=== PATIENT | female | born 1950 | race Caucasian/White ===

== ENCOUNTER 2020-03-06 15:48 | Inpatient (IN) | payer MEDICARE, SELFPAY ==
[2020-03-06] VITALS (10 sets, daily range): BP systolic 105–162; BP diastolic 57–80; PULSE 74–134; RESP 12–26; TEMP 36.3; O2SAT 95–100; BMI 23.5
--- NOTE | 2020-03-06 16:15 | PC.NURSE ---
Pt started yelling and trying to get out of the gurney. Pts spouse came out of room for help. Pt was easily directable and got back into bed with the help of this MANPOWER DEVELOPMENT SPECIALIST and her spouse. Lights are dimmed and pt was given warm blankets.
[2020-03-06] MEDS: LORazepam 2 MG/ML INJ ×2 (16:25→17:44)
[2020-03-06 16:28] LABS: Add Manual Diff / Slide Review NO; Basophils Absolute Auto 200 /uL (0-100); Eosinophils Absolute Auto 100 /uL (0-450); Eosinophils Percent Auto 0.4 % (2-4); Hematocrit 35.2 % (36-46); Hemoglobin 11.9 g/dL (12.0-16.0); Lymphocytes Absolute Auto 3200 /uL (1100-4500); Lymphocytes Percent Auto 16.2 % (25-40); Mean Corpuscular HGB Conc 33.7 % (30-36); Mean Corpuscular Volume 89.1 fL (80-100); Monocytes Absolute Auto 900 /uL (0-900); Monocytes Percent Auto 4.9 % (3-14); Neutrophils Absolute Auto 15100 /uL (1500-7000); Neutrophils Percent Auto 77.5 % (50-75); Platelet Count 526 X10^3/uL (150-400); Red Blood Cell Count 3.95 X10^6/uL (4.0-5.2); Red Cell Distribution Width 12.7 % (11.6-14.8); White Blood Cell Count 19.5 X10^3/uL (4.5-11.0)
[2020-03-06 16:35] LABS: Acetaminophen < 10 ug/mL (10-30); Alanine Aminotransferase 24 IU/L (<35); Albumin 4.7 g/dL (3.5-5.0); Albumin Globulin Ratio 1.1 (1.0-2.8); Alkaline Phosphatase 267 U/L (38-126); Aspartate Aminotransferase 36 IU/L (14-36); BUN Creatinine Ratio 13.9 (6-22); Bilirubin Total 0.7 mg/dL (0.2-1.3); Blood Urea Nitrogen 17 mg/dL (7-17); Calcium 10.6 mg/dL (8.4-10.2); Carbon Dioxide 21 mmol/L (22-32); Chloride 107 mmol/L (98-107); Estimated Glomerular Filt Rate 43.7 mL/min (>60); Ethanol (ETOH) < 10 mg/dL; Globulin 4.1 g/dL (1.7-4.1); Glucose 129 mg/dL (80-110); HEMOLYSIS 46 (0-50); Potassium 3.4 mmol/L (3.4-5.1); Salicylate < 1.0 mg/dL (<20); Sodium 140 mmol/L (137-145); Total Protein 8.8 g/dL (6.3-8.2)
--- NOTE | 2020-03-06 16:45 | ED.AMS ---
HPI - Altered Mental Status General Chief Complaint: Altered Mental Status Stated Complaint: Not herself Time Seen by Provider: 03/06/20 16:01 Source: family Mode of arrival: EMS Limitations: altered mental status History of Present Illness HPI narrative: Patient is a 69-year-old female long-term depression and hypothyroid, presenting today with psychiatric decline and mental health decline according to the . He says that for few weeks she has been decreasing and today she became quite unbearable hand agitated. She is unable to give me any history. She is on lithium he has been in charge of giving her lithium 600 mg at night. He states that she has been hospitalized 3 times for psychiatric breakdowns in the past. He mentions that she has had suicidal ideations but no attempts. Related Data Home Medications Medication Instructions Recorded Confirmed amlodipine 10 mg PO DAILY 03/06/20 03/06/20 duloxetine 60 mg PO DAILY 03/06/20 03/06/20 levothyroxine 75 mcg PO DAILY 03/06/20 03/06/20 lithium carbonate 600 mg PO BEDTIME 03/06/20 03/06/20 quetiapine 50 mg PO BEDTIME 03/06/20 03/06/20 Allergies Allergy/AdvReac Type Severity Reaction Status Date / Time Sulfa (Sulfonamide Allergy Unknown Verified 03/06/20 16:27 Antibiotics) Review of Systems Review of Systems ROS Unobtainable: Unobtainable due to mental condition Patient History Medical History (Updated 03/06/20 @ 18:55 by aSriah Gomes DO) Bipolar disorder (Acute) Hypertension (Acute) Hypothyroidism (acquired) (Acute) Exam Initial Vital Signs Initial Vital Signs: Vital Signs Pulse Rate 115 H 03/06/20 15:55 Respiratory Rate 22 03/06/20 15:55 Blood Pressure 145/72 H 03/06/20 15:55 Pulse Oximetry 98 03/06/20 15:55 GENERAL: Agitated HEENT: Head atraumatic,EOMI, pupils reactive, face symmetric, dry mucous membranes CARDIOVASCULAR: Tachycardic regular RESPIRATORY: Breath sounds equal bilaterally, no wheezes rales or rhonchi. ABDOMEN: Soft, nontender. Normoactive bowel sounds all 4 quadrants. No guarding or rebound. EXTREMITIES: Normal range of motion, no clubbing or edema. Neurovascularly intact NEUROLOGICAL: Not able to follow commands SKIN: Warm, dry, no laceration, no petechiae, no rashes or lesions. Course Orders Ordered: ED Orders 03/06/20 16:11 Acetaminophen Stat Complete Blood Count AUTO DIFF Stat Comprehensive Metabolic Panel Stat Ethanol (ETOH) Stat Lactate (Lactic Acid) Stat [place] Stat Magnesium Stat Procalcitonin Stat Salicylate Stat Thyroid Stimulating Hormone Stat 03/06/20 16:35 Blood Culture Stat 03/06/20 16:50 Urinalysis and Microscopic Stat Urine Culture Stat Urine Drug Screen, Rapid Stat 03/06/20 16:54 EKG-12 Lead Stat 03/06/20 17:52 Consult to INSTRUCTIONAL MANAGER - Collector Of Port Stat 03/06/20 18:14 XR chest 1V Stat COVID19 -ED/INPAT/OR/L&D Stat Discontinued Medications Sodium Chloride (Normal Saline 0.9%) 1,000 mls @ 1,000 mls/hr IV BOLUS ONE Stop: 03/06/20 17:41 Last Admin: 03/06/20 17:02 Dose: 1,000 mls/hr Documented by: ZZOUTIS Lorazepam (Ativan) 1 mg IV NOW ONE Stop: 03/06/20 17:13 Last Admin: 03/06/20 17:24 Dose: 1 mg Documented by: ZZOUTIS Lorazepam (Ativan) 2 mg IV NOW ONE Stop: 03/06/20 18:41 Vital Signs Vital signs: Vital Signs - 8 hr 03/06/20 15:55 03/06/20 15:56 03/06/20 16:00 Pulse Rate 115 H 114 H 114 H Respiratory Rate 22 24 24 Blood Pressure 145/72 H 145/72 H 162/72 H Pulse Oximetry 98 100 03/06/20 16:30 03/06/20 17:00 Pulse Rate 91 H 122 H Respiratory Rate 12 Blood Pressure 160/80 H Pulse Oximetry 98 100 MDM - Altered Mental Status Lab Data Attestation: I reviewed the patient's lab results. Result diagrams: 03/06/20 16:11 03/06/20 16:11 Labs: Lab Results 03/06/20 03/06/20 03/06/20 Range/Units 16:11 16:11 16:11 WBC 19.5 H (4.5-11.0) X10^3/uL RBC 3.95 L (4.0-5.2) X10^6/uL Hgb 11.9 L (12.0-16.0) g/dL Hct 35.2 L (36-46) % MCV 89.1 (80-100) fL MCH 30.0 (26-34) PG MCHC 33.7 (30-36) % RDW 12.7 (11.6-14.8) % Plt Count 526 H (150-400) X10^3/uL Neut % (Auto) 77.5 H (50-75) % Lymph % (Auto) 16.2 L (25-40) % [place] % (Auto) 4.9 (3-14) % Eos % (Auto) 0.4 L (2-4) % Baso % (Auto) 1.0 (0-2) % Neut # (Auto) 38992 H (7265-1583) /uL Lymph # (Auto) 3200 (0781-0521) /uL [place] # (Auto) 900 (0-900) /uL Eos # (Auto) 100 (0-450) /uL Baso # (Auto) 200 H (0-100) /uL Sodium 140 (137-145) mmol/L Potassium 3.4 (3.4-5.1) mmol/L Chloride 107 (98-107) mmol/L Carbon Dioxide 21 L (22-32) mmol/L BUN 17 (7-17) mg/dL Creatinine 1.22 H (0.52-1.04) mg/dL Estimated GFR 43.7 L (>60) mL/min BUN/Creatinine Ratio 13.9 (6-22) Glucose 129 H (80-110) mg/dL Lactate (0.7-2.1) mmol/L Calcium 10.6 H (8.4-10.2) mg/dL Magnesium (1.6-2.3) mg/dL Total Bilirubin 0.7 (0.2-1.3) mg/dL AST 36 (14-36) IU/L ALT 24 (<35) IU/L Alkaline Phosphatase 267 H (38-126) U/L Total Protein 8.8 H (6.3-8.2) g/dL Albumin 4.7 (3.5-5.0) g/dL Globulin 4.1 (1.7-4.1) g/dL Albumin/Globulin Ratio 1.1 (1.0-2.8) Procalcitonin (<0.5) ng/mL TSH (0.47-4.68) uIU/mL Urine Color Urine Appearance Urine pH (4.5-8.0) Ur Specific [place] (1.000-1.035) Urine Protein (Negative) Urine Glucose (UA) (Negative) g/dL Urine Ketones (NEGATIVE) Urine Occult Blood (Negative) Urine Nitrate (Negative) Urine Bilirubin (NEGATIVE) Urine Urobilinogen (0.2) E.U./dL Ur Leukocyte Esterase (NEGATIVE) Urine RBC (0-5/HPF) Urine WBC (0-5/HPF) Ur Squamous Epith Cells (0-5/HPF) Amorphous Sediment Urine Bacteria (None) Ur Culture Indicated? Salicylates < 1.0 (<20) mg/dL U Opiates 300ng/mL cut (Negative) Ur Oxycodone Screen (Negative) Urine Methadone Screen (Negative) Acetaminophen < 10 L (10-30) ug/mL Ur Barbiturates Screen (Negative) U Tricyclic Antidepress (Negative) Ur Phencyclidine Scrn (Negative) Ur Amphetamines Screen (Negative) U Methamphetamines Scrn (Negative) Ur MDMA Scrn (Ecstasy) (Negative) U Benzodiazepines Scrn (Negative) [place] 2.5 H* (0.6-1.2) mmol/L Urine Cocaine Screen (Negative) U Marijuana (THC) Screen (Negative) Ethyl Alcohol < 10 ( - 10) mg/dL 03/06/20 03/06/20 03/06/20 Range/Units 16:11 16:11 16:11 WBC (4.5-11.0) X10^3/uL RBC (4.0-5.2) X10^6/uL Hgb (12.0-16.0) g/dL Hct (36-46) % MCV (80-100) fL MCH (26-34) PG MCHC (30-36) % RDW (11.6-14.8) % Plt Count (150-400) X10^3/uL Neut % (Auto) (50-75) % Lymph % (Auto) (25-40) % [place] % (Auto) (3-14) % Eos % (Auto) (2-4) % Baso % (Auto) (0-2) % Neut # (Auto) (8391-7788) /uL Lymph # (Auto) (8858-1007) /uL [place] # (Auto) (0-900) /uL Eos # (Auto) (0-450) /uL Baso # (Auto) (0-100) /uL Sodium (137-145) mmol/L Potassium (3.4-5.1) mmol/L Chloride (98-107) mmol/L Carbon Dioxide (22-32) mmol/L BUN (7-17) mg/dL Creatinine (0.52-1.04) mg/dL Estimated GFR (>60) mL/min BUN/Creatinine Ratio (6-22) Glucose (80-110) mg/dL Lactate 2.7 H (0.7-2.1) mmol/L Calcium (8.4-10.2) mg/dL Magnesium (1.6-2.3) mg/dL Total Bilirubin (0.2-1.3) mg/dL AST (14-36) IU/L ALT (<35) IU/L Alkaline Phosphatase (38-126) U/L Total Protein (6.3-8.2) g/dL Albumin (3.5-5.0) g/dL Globulin (1.7-4.1) g/dL Albumin/Globulin Ratio (1.0-2.8) Procalcitonin 0.12 (<0.5) ng/mL TSH 0.522 (0.47-4.68) uIU/mL Urine Color Urine Appearance Urine pH (4.5-8.0) Ur Specific [place] (1.000-1.035) Urine Protein (Negative) Urine Glucose (UA) (Negative) g/dL Urine Ketones (NEGATIVE) Urine Occult Blood (Negative) Urine Nitrate (Negative) Urine Bilirubin (NEGATIVE) Urine Urobilinogen (0.2) E.U./dL Ur Leukocyte Esterase (NEGATIVE) Urine RBC (0-5/HPF) Urine WBC (0-5/HPF) Ur Squamous Epith Cells (0-5/HPF) Amorphous Sediment Urine Bacteria (None) Ur Culture Indicated? Salicylates (<20) mg/dL U Opiates 300ng/mL cut (Negative) Ur Oxycodone Screen (Negative) Urine Methadone Screen (Negative) Acetaminophen (10-30) ug/mL Ur Barbiturates Screen (Negative) U Tricyclic Antidepress (Negative) Ur Phencyclidine Scrn (Negative) Ur Amphetamines Screen (Negative) U Methamphetamines Scrn (Negative) Ur MDMA Scrn (Ecstasy) (Negative) U Benzodiazepines Scrn (Negative) [place] (0.6-1.2) mmol/L Urine Cocaine Screen (Negative) U Marijuana (THC) Screen (Negative) Ethyl Alcohol ( - 10) mg/dL 03/06/20 03/06/20 03/06/20 Range/Units 16:11 16:50 16:50 WBC (4.5-11.0) X10^3/uL RBC (4.0-5.2) X10^6/uL Hgb (12.0-16.0) g/dL Hct (36-46) % MCV (80-100) fL MCH (26-34) PG MCHC (30-36) % RDW (11.6-14.8) % Plt Count (150-400) X10^3/uL Neut % (Auto) (50-75) % Lymph % (Auto) (25-40) % [place] % (Auto) (3-14) % Eos % (Auto) (2-4) % Baso % (Auto) (0-2) % Neut # (Auto) (5557-6202) /uL Lymph # (Auto) (1627-6437) /uL [place] # (Auto) (0-900) /uL Eos # (Auto) (0-450) /uL Baso # (Auto) (0-100) /uL Sodium (137-145) mmol/L Potassium (3.4-5.1) mmol/L Chloride (98-107) mmol/L Carbon Dioxide (22-32) mmol/L BUN (7-17) mg/dL Creatinine (0.52-1.04) mg/dL Estimated GFR (>60) mL/min BUN/Creatinine Ratio (6-22) Glucose (80-110) mg/dL Lactate (0.7-2.1) mmol/L Calcium (8.4-10.2) mg/dL Magnesium 2.0 (1.6-2.3) mg/dL Total Bilirubin (0.2-1.3) mg/dL AST (14-36) IU/L ALT (<35) IU/L Alkaline Phosphatase (38-126) U/L Total Protein (6.3-8.2) g/dL Albumin (3.5-5.0) g/dL Globulin (1.7-4.1) g/dL Albumin/Globulin Ratio (1.0-2.8) Procalcitonin (<0.5) ng/mL TSH (0.47-4.68) uIU/mL Urine Color Yellow Urine Appearance Clear Urine pH 7.0 (4.5-8.0) Ur Specific [place] 1.010 (1.000-1.035) Urine Protein Negative (Negative) Urine Glucose (UA) Negative (Negative) g/dL Urine Ketones Trace H (NEGATIVE) Urine Occult Blood 1+ H (Negative) Urine Nitrate Negative (Negative) Urine Bilirubin Negative (NEGATIVE) Urine Urobilinogen 0.2 (0.2) E.U./dL Ur Leukocyte Esterase Negative (NEGATIVE) Urine RBC 1-5/hpf (0-5/HPF) Urine WBC 1-5/hpf (0-5/HPF) Ur Squamous Epith Cells 0-1 /hpf (0-5/HPF) Amorphous Sediment 2+ Urine Bacteria Occasional (0-1) (None) Ur Culture Indicated? Specimen cultured Salicylates (<20) mg/dL U Opiates 300ng/mL cut Negative (Negative) Ur Oxycodone Screen Positive H (Negative) Urine Methadone Screen Negative (Negative) Acetaminophen (10-30) ug/mL Ur Barbiturates Screen Negative (Negative) U Tricyclic Antidepress Negative (Negative) Ur Phencyclidine Scrn Negative (Negative) Ur Amphetamines Screen Negative (Negative) U Methamphetamines Scrn Negative (Negative) Ur MDMA Scrn (Ecstasy) Negative (Negative) U Benzodiazepines Scrn Negative (Negative) [place] (0.6-1.2) mmol/L Urine Cocaine Screen Negative (Negative) U Marijuana (THC) Screen Negative (Negative) Ethyl Alcohol ( - 10) mg/dL Imaging Data Chest x-ray: Radiologist's Impression: PROCEDURE: XR CHEST 1V INDICATIONS: Altered mental status TECHNIQUE: One view of the chest was acquired. COMPARISON: None. FINDINGS: Surgical changes and devices: None. Lungs and pleura: Lungs are clear. No pleural effusions or pneumothorax. Mediastinum: Mediastinal contours appear normal. Heart size is normal. Bones and chest wall: No suspicious bony lesions. Overlying soft tissues appear unremarkable. IMPRESSION: No acute cardiopulmonary process demonstrated radiographically. Dictated by: Iban Galo M.D. on 03/06/2020 at 18:32 Approved by: Iban Galo M.D. on 03/06/2020 at 18:34 ECG Data Attestation: I personally reviewed and interpreted this ECG as follows: Prior ECG tracings: not available for review Interpretation: Sinus rhythm rate 120 p.r. interval 185 QRS 105 QTC is 500 MDM Narrative Medical decision making narrative: [place] level comes back as critical at 2.5. The poison Control was promptly contacted. 2.5 is critical in chronic usage. Her gives her her nightly dose every day he has not given her any extra her last dose was last evening he is unsure exactly what the time is. Poison Control recommends monitoring the level every 4 hours until it peaks and then every 6 hours in till 8 decreases. The goal is 1.2. Signs and symptoms can include nausea vomiting tremors weakness hyper reflects a a. Dialysis is indicated if there EKG changes including prolonged QT coma or seizures. She is also noted to have significant leukocytosis of 19 no obvious source of infection. She does have mild elevation of procalcitonin. Chest x-ray and urine are negative. She is remaining quite agitated she is given multiple doses of Ativan. She finally has calmed down somewhat. Recommend avoiding Haldol and Benadryl as well both can cause prolonged QT. , in ED disease evaluate patient happily except. Discharge Plan Departure Patient Disposition: Admitted As Inpatient Clinical Impression: [place] toxicity Qualifiers: Encounter type: initial encounter Injury intent: undetermined intent Qualified Code(s): T56.894A - Toxic effect of other metals, undetermined, initial encounter Psychosis Qualifiers: Psychosis type: other Qualified Code(s): F28 - Other psychotic disorder not due to a substance or known physiological condition Discharge Date/Time: 03/06/20 18:16 Admit Date/Time: 03/06/20 18:15 Admit Provider: Griffin Collins
[2020-03-06 16:47] LABS: Lithium 2.5 mmol/L (0.6-1.2)
[2020-03-06 16:48] LABS: Lactate (Lactic Acid) 2.7 mmol/L (0.7-2.1)
--- NOTE | 2020-03-06 16:57 | PC.NURSE ---
patient had stool on bottom, and vagina. states he tried to clean her earlier, she had had diarrhea. pt is now clean and given warm blankets.
[2020-03-06] MEDS: SODIUM CHLORIDE 0.9% 1,000 ML 1000 ML IV (17:02)
[2020-03-06 17:04] LABS: Appearance Urine UA CLEAR; Bilirubin Urine UA NEGATIVE (NEGATIVE); Color Urine UA YELLOW; Glucose Urine UA NEGATIVE (Negative); Ketones Urine UA TRACE (NEGATIVE); Leukocyte Esterase Urine UA NEGATIVE (NEGATIVE); Nitrite Urine UA NEGATIVE (Negative); Occult Blood Urine UA 1+ (Negative); Protein Urine UA NEGATIVE (Negative); Urobilinogen Urine UA 0.2 E.U./dL (0.2)
[2020-03-06 17:05] LABS: Thyroid Stimulating Hormone 0.522 uIU/mL (0.47-4.68)
[2020-03-06 17:07] LABS: Procalcitonin 0.12 ng/mL (<0.5)
[2020-03-06 17:11] LABS: Amorphous Sediment Urine 2+; Bacteria Urine Occasional (0-1); Culture Indicated Urine Specimen Cultured; RBC Urine 1-5/HPF (0-5/HPF); Squamous Epithelial Cell Urine 0-1 /HPF (0-5/HPF); WBC Urine 1-5/HPF (0-5/HPF)
[2020-03-06 17:13] LABS: Ur Creatinine Normal (Normal); Ur Specific Gravity Normal (Normal)
[2020-03-06 17:14] LABS: UR Morphine/Opiate cutoff 300 Negative (Negative); Urine Amphetamines Negative (Negative); Urine Barbiturates Negative (Negative); Urine Benzodiazepines Negative (Negative); Urine Cocaine Negative (Negative); Urine MDMA Negative (Negative); Urine Methadone Negative (Negative); Urine Methamphetamines Negative (Negative); Urine Oxycodone Positive (Negative); Urine Phencyclidine Negative (Negative); Urine Tetrahydrocannabinol Negative (Negative); Urine Tricyclic Antidepressant Negative (Negative); Urine pH Normal (Normal)
[2020-03-06] MEDS: LORazepam 2 MG/ML INJ 1 MG IV ×2 (17:24→21:21)
[2020-03-06] MEDS: LORazepam 2 MG/ML INJ IV (17:54)
--- NOTE | 2020-03-06 18:14 | DI.RAD.S_ITS ---
PROCEDURE: XR CHEST 1V INDICATIONS: Altered mental status TECHNIQUE: One view of the chest was acquired. COMPARISON: None. FINDINGS: Surgical changes and devices: None. Lungs and pleura: Lungs are clear. No pleural effusions or pneumothorax. Mediastinum: Mediastinal contours appear normal. Heart size is normal. Bones and chest wall: No suspicious bony lesions. Overlying soft tissues appear unremarkable. IMPRESSION: No acute cardiopulmonary process demonstrated radiographically. Dictated by: Iban Galo M.D. on 03/06/2020 at 18:32 Approved by: Iban Galo M.D. on 03/06/2020 at 18:34
[2020-03-06 18:40] LABS: Reflexed Lactate in 2 Hours Y
--- NOTE | 2020-03-06 18:51 | PM.HP.1 ---
History of Present Illness History of Present Illness Date Patient Seen: 03/06/20 Time Patient Seen: 18:00 Chief complaint: Not herself Narrative: Patient is a 69-year-old female with history of bipolar depression, hypertension, hypothyroidism brought to the emergency department due to extreme agitation. provides useful history of recent events. He states she was doing well with normal behavior until about 2 weeks ago where she began having some confusion, trouble walking and a noticeable tremor. The symptoms persisted but yesterday she started to become extremely agitated up to point where got worried and called medics to bring her to the emergency department today. is not aware that she overdosed on anything or 2 pills other than directed. He states she had a couple episodes of vomiting about 2 weeks ago. Over the last day or two her oral intake has really dropped off as well. She has not had fever, chills, cough, abdominal complaints. has not noticed her falling or hitting her head with the loss of balance. On ED evaluation, patient was noted extremely agitated and uncontrollable. She was given several doses of lorazepam. Her lithium level came back at 2.5 in range of lithium toxicity. states her last dose of lithium was last night. Other abnormal labs include WBC 32663, hemoglobin 11.9, platelets 526, creatinine 1.22. Her serum sodium is normal at 140. She has mildly elevated serum calcium of 10.6. Her TSH is normal. Lactate mildly elevated at 2.7. Urine tox screen positive for oxycodone, negative for acetaminophen and salicylates. Patient is not on [place] inhibitors and does not take NSAIDs to 's knowledge. Patient History Medical History (Updated 03/06/20 @ 18:55 by Sariah Gomes DO) Bipolar disorder (Acute) Hypertension (Acute) Hypothyroidism (acquired) (Acute) Meds Home Medications and Allergies Home Medications Medication Instructions Recorded Confirmed Type amlodipine 10 mg PO DAILY 03/06/20 03/06/20 History duloxetine 60 mg PO DAILY 03/06/20 03/06/20 History levothyroxine 75 mcg PO DAILY 03/06/20 03/06/20 History lithium carbonate 600 mg PO BEDTIME 03/06/20 03/06/20 History quetiapine 50 mg PO BEDTIME 03/06/20 03/06/20 History Allergies Allergy/AdvReac Type Severity Reaction Status Date / Time Sulfa (Sulfonamide Allergy Unknown Verified 03/06/20 16:27 Antibiotics) Review of Systems Review of Systems ROS: Yes unobtainable due to mental condition Exam Vital Signs (past 8 hours): - 03/06/20 15:55 03/06/20 15:56 03/06/20 16:00 Pulse Rate 115 H 114 H 114 H Respiratory Rate 22 24 24 Blood Pressure 145/72 H 145/72 H 162/72 H Pulse Oximetry 98 100 03/06/20 16:30 03/06/20 17:00 Pulse Rate 91 H 122 H Respiratory Rate 12 Blood Pressure 160/80 H Pulse Oximetry 98 100 Oxygen Delivery Method Room Air Narrative Exam Narrative: General: Patient is quite sedated having received IV lorazepam HEENT: Pupils equal and reactive, normocephalic/nontraumatic Neck: Supple no lymphadenopathy Lungs: Clear to auscultation Heart: Normal S1 and S2, regular rhythm with mild tachycardia, no murmur Abdomen: Soft, no HSM Extremities: Warm, dry, no edema Neurological: At this time sedated and unresponsive, no myoclonic jerks or tremors Objective Labs Result Diagrams: 03/06/20 16:11 03/06/20 16:11 Labs: Laboratory Results - last 24 hr 03/06/20 03/06/20 03/06/20 16:11 16:11 16:11 WBC 19.5 H RBC 3.95 L Hgb 11.9 L Hct 35.2 L MCV 89.1 MCH 30.0 MCHC 33.7 RDW 12.7 Plt Count 526 H Neut % (Auto) 77.5 H Lymph % (Auto) 16.2 L [place] % (Auto) 4.9 Eos % (Auto) 0.4 L Baso % (Auto) 1.0 Neut # (Auto) 80352 H Lymph # (Auto) 3200 [place] # (Auto) 900 Eos # (Auto) 100 Baso # (Auto) 200 H Sodium 140 Potassium 3.4 Chloride 107 Carbon Dioxide 21 L BUN 17 Creatinine 1.22 H Estimated GFR 43.7 L BUN/Creatinine Ratio 13.9 Glucose 129 H Lactate Calcium 10.6 H Magnesium Total Bilirubin 0.7 AST 36 ALT 24 Alkaline Phosphatase 267 H Total Protein 8.8 H Albumin 4.7 Globulin 4.1 Albumin/Globulin Ratio 1.1 Procalcitonin TSH Urine Color Urine Appearance Urine pH Ur Specific [place] Urine Protein Urine Glucose (UA) Urine Ketones Urine Occult Blood Urine Nitrate Urine Bilirubin Urine Urobilinogen Ur Leukocyte Esterase Urine RBC Urine WBC Ur Squamous Epith Cells Amorphous Sediment Urine Bacteria Ur Culture Indicated? Salicylates < 1.0 U Opiates 300ng/mL cut Ur Oxycodone Screen Urine Methadone Screen Acetaminophen < 10 L Ur Barbiturates Screen U Tricyclic Antidepress Ur Phencyclidine Scrn Ur Amphetamines Screen U Methamphetamines Scrn Ur MDMA Scrn (Ecstasy) U Benzodiazepines Scrn [place] 2.5 H* Urine Cocaine Screen U Marijuana (THC) Screen Ethyl Alcohol < 10 03/06/20 03/06/20 03/06/20 16:11 16:11 16:11 WBC RBC Hgb Hct MCV MCH MCHC RDW Plt Count Neut % (Auto) Lymph % (Auto) [place] % (Auto) Eos % (Auto) Baso % (Auto) Neut # (Auto) Lymph # (Auto) [place] # (Auto) Eos # (Auto) Baso # (Auto) Sodium Potassium Chloride Carbon Dioxide BUN Creatinine Estimated GFR BUN/Creatinine Ratio Glucose Lactate 2.7 H Calcium Magnesium Total Bilirubin AST ALT Alkaline Phosphatase Total Protein Albumin Globulin Albumin/Globulin Ratio Procalcitonin 0.12 TSH 0.522 Urine Color Urine Appearance Urine pH Ur Specific [place] Urine Protein Urine Glucose (UA) Urine Ketones Urine Occult Blood Urine Nitrate Urine Bilirubin Urine Urobilinogen Ur Leukocyte Esterase Urine RBC Urine WBC Ur Squamous Epith Cells Amorphous Sediment Urine Bacteria Ur Culture Indicated? Salicylates U Opiates 300ng/mL cut Ur Oxycodone Screen Urine Methadone Screen Acetaminophen Ur Barbiturates Screen U Tricyclic Antidepress Ur Phencyclidine Scrn Ur Amphetamines Screen U Methamphetamines Scrn Ur MDMA Scrn (Ecstasy) U Benzodiazepines Scrn [place] Urine Cocaine Screen U Marijuana (THC) Screen Ethyl Alcohol 03/06/20 03/06/20 03/06/20 16:11 16:50 16:50 WBC RBC Hgb Hct MCV MCH MCHC RDW Plt Count Neut % (Auto) Lymph % (Auto) [place] % (Auto) Eos % (Auto) Baso % (Auto) Neut # (Auto) Lymph # (Auto) [place] # (Auto) Eos # (Auto) Baso # (Auto) Sodium Potassium Chloride Carbon Dioxide BUN Creatinine Estimated GFR BUN/Creatinine Ratio Glucose Lactate Calcium Magnesium 2.0 Total Bilirubin AST ALT Alkaline Phosphatase Total Protein Albumin Globulin Albumin/Globulin Ratio Procalcitonin TSH Urine Color Yellow Urine Appearance Clear Urine pH 7.0 Ur Specific [place] 1.010 Urine Protein Negative Urine Glucose (UA) Negative Urine Ketones Trace H Urine Occult Blood 1+ H Urine Nitrate Negative Urine Bilirubin Negative Urine Urobilinogen 0.2 Ur Leukocyte Esterase Negative Urine RBC 1-5/hpf Urine WBC 1-5/hpf Ur Squamous Epith Cells 0-1 /hpf Amorphous Sediment 2+ Urine Bacteria Occasional (0-1) Ur Culture Indicated? Specimen cultured Salicylates U Opiates 300ng/mL cut Negative Ur Oxycodone Screen Positive H Urine Methadone Screen Negative Acetaminophen Ur Barbiturates Screen Negative U Tricyclic Antidepress Negative Ur Phencyclidine Scrn Negative Ur Amphetamines Screen Negative U Methamphetamines Scrn Negative Ur MDMA Scrn (Ecstasy) Negative U Benzodiazepines Scrn Negative [place] Urine Cocaine Screen Negative U Marijuana (THC) Screen Negative Ethyl Alcohol Assessment & Plan Assessment & Plan narrative: This is a 69-year-old female presenting with acute confusion, agitation, tremors and trouble walking with a toxic lithium level. 1. Acute lithium toxicity, present on admission, active -lithium level 2.5 clearly in toxic range on background of chronic lithium intake -symptoms of confusion, agitation, tremors and difficulty walking all fit lithium toxicity -EKG: Sinus tachycardia, mild nonspecific ST changes, no QT prolongation -WBC 19 K, leukocytosis can be seen with lithium toxicity, patient without fever or other signs of infection, has normal urinalysis, chest x-ray pending, low procalcitonin 0.12 -serum calcium 10.6, hypercalcemia can be seen with lithium toxicity and also she may be dehydrated -provide hydration with NS 100 cc/hour -lithium level q.4-6 hours until declining back to normal range less than 1.2, plan of care was discussed with Poison Control by ED physician -monitor sodium levels for diabetes insipidus -repeat CBC, chemistries in a.m. -patient followed by [facility] for psychiatry 2. Anemia unknown chronicity -hemoglobin 11.9, MCV 89.1, no previous values available for comparison -also has leukocytosis and thrombocytosis -repeat CBC in a.m., consider outpatient oncology evaluation if laboratories are not improving by discharge -check iron profile and ferritin DVT prophylaxis: Lovenox Surrogate decision maker:
--- NOTE | 2020-03-06 19:19 | PC.NURSE ---
Addendum entered by Anisa Ryan R.N. 03/06/20 21:44: Posion control called and discussed plan of care and asked about s/s of [place] toxicity. Poison control instructed to continue with fluids and Ativan and to monitor for seizures. Lab called at 2143 to communicate a high [place] level of 2.2 (which is trending down from ER level of 2.5). pt is repositioning IND in bed often and is assisting with keeping pt calm and in bed. Addendum entered by Anisa Ryan R.N. 03/06/20 21:31: Tele applied and pt running Sinus tachy, although NSR when at rest. Richards catheter placed approximately 2044 with 16 Fr and 10ml in balloon. SCD's applied. pt does not respond to commands verbally but calm and will allow for interventions. pt did have some muscle rigidity during lab draw and Richards insertion but no aggression. Britton performing oral care with swabs and lip moisturizer. Pulse ox 100% and titrated pt off 1.5L NC to RA and sats are staying in high 90's. NS infusing at 100/hr to right wrist. pt favoring to lay in position on the right side causing many distal occlusions. Original Note: Evening shift. pt arrived from ED at 1850 and was transferred to bed from [facility] via sliding technique. pt was laying in position quiet and with eyes closed until transfer at which time she yelled out. Once in bed, pt was calm and continued to rest with her eyes closed. in room and helping to answer questions regarding pt history and events leading up to tonight. pt placed on droplet precautions while COVID test pending. pt arrived with NC and RN stated she was placed on 1.5 O2 for low 90's O2 after Ativan was administered. pt placed on 1.5L NC O2 in room. Bed alarm activated.
[2020-03-06 19:23] LABS: COVID19 -Nasal RAPID Negative (Negative)
[2020-03-06] MEDS: SODIUM CHLORIDE 0.9% 1,000 ML 100 ML IV (19:45)
[2020-03-06 21:27] LABS: Lactate 2HR (Lactic Acid Rflx) 1.7 mmol/L (0.7-2.1)
[2020-03-06 21:42] LABS: HEMOLYSIS < 15 (0-50); Iron 68 ug/dL (37-170)
[2020-03-06 21:43] LABS: Lithium 2.2 mmol/L (0.6-1.2)
[2020-03-06 21:52] LABS: Percent Iron Saturation 21 % (15-50); Total Iron Binding Capacity 322 ug/dL (265-497); Transferrin 236 mg/dL (206-381)
[2020-03-06 22:03] LABS: Ferritin 108 ng/mL (11-264)
--- NOTE | 2020-03-06 22:21 | PC.NURSE ---
Medication allergy. pt is allergic to sulfa antibiotics and had a moderate reaction to an old psychological medication a couple years ago, but the is unsure of the name. If he goes home he will look into it. states pt started having rashes all over her body.
[2020-03-07] VITALS (8 sets, daily range): BP systolic 101–153; BP diastolic 58–92; PULSE 65–120; RESP 16–22; TEMP 35.9–37.2; O2SAT 96–100
[2020-03-07] MEDS: SODIUM CHLORIDE 0.9% 1,000 ML 100 ML IV ×3 (02:35→21:14)
[2020-03-07] MEDS: LORazepam 2 MG/ML INJ 1 MG IV ×3 (03:14→12:17)
--- NOTE | 2020-03-07 04:13 | PM.EVENT ---
Event Note Date Patient Seen: 03/07/20 Time Patient Seen: 04:13 Event Note: Patient noted to be tachycardic with worsening tremors and elevated heart rate. Admitted for lithium toxicity, appears to be chronic which can cause more acute neurologic symptoms. Patient unable to answer questions, her legs are appearing to be tremoring and she is moaning. I have given her a one time dose of IV ativan 2 mg, increased her maintenance fluid to NS at 175 ml/hour. [place] levels are trending downward but still elevated. Last one done was 2.0. at 0026. 4 am level is pending.
--- NOTE | 2020-03-07 04:26 | PC.NURSE ---
Addendum entered by Mariann Lara R.N. 03/07/20 06:52: pt potassium is 2.8. REBECA Sharma notified and potassium replacement orders received Addendum entered by Mariann Lara R.N. 03/07/20 04:55: pt started getting restless at 0440, 2 mg of ativan given Original Note: Pt was clutching on the bed rails and was moaning. Maye and this web content writer tried non pharmacological treatment to deescalate pt such as rubbing back, talking to pt and telling pt step by step what we will do for assessment. Nonpharmacological approach was not successful and pt was given 1 mg of ativan. After 30 mins, pt was still restless, heart rate is still elevated. this web content writer called REBECA Sharma and hospitalist reassessed pt. As per RESIDENTIAL LIFE DIRECTOR, new orders are strict I and Os, Increase IV NS rate from 100 to 175 ml/hr. Administer ativan 2 mg now. As this web content writer was on her way to med room, pt stopped moaning and calmed down. Heart rrate sunil down to 83 bpm. Pt was asleep in a few minutes so this web content writer held off the ativan 2 mg. will continue to monitor, bed on lowest position, call light within reach, SKY Villavicencio is at the door way
[2020-03-07] MEDS: LORazepam 2 MG/ML INJ IV (04:46)
[2020-03-07 04:59] LABS: Add Manual Diff / Slide Review NO; Basophils Absolute Auto 100 /uL (0-100); Basophils Percent Auto 0.5 % (0-2); Eosinophils Absolute Auto 0 /uL (0-450); Eosinophils Percent Auto 0.1 % (2-4); Hematocrit 30.8 % (36-46); Hemoglobin 10.4 g/dL (12.0-16.0); Lymphocytes Absolute Auto 1100 /uL (1100-4500); Lymphocytes Percent Auto 7.2 % (25-40); Mean Corpuscular HGB Conc 33.8 % (30-36); Mean Corpuscular Volume 88.8 fL (80-100); Monocytes Absolute Auto 700 /uL (0-900); Neutrophils Absolute Auto 13000 /uL (1500-7000); Neutrophils Percent Auto 87.2 % (50-75); Platelet Count 407 X10^3/uL (150-400); Red Blood Cell Count 3.47 X10^6/uL (4.0-5.2); Red Cell Distribution Width 12.7 % (11.6-14.8); White Blood Cell Count 14.9 X10^3/uL (4.5-11.0)
[2020-03-07 05:10] LABS: Alanine Aminotransferase 27 IU/L (<35); Albumin 4.1 g/dL (3.5-5.0); Albumin Globulin Ratio 1.2 (1.0-2.8); Alkaline Phosphatase 225 U/L (38-126); Aspartate Aminotransferase 39 IU/L (14-36); BUN Creatinine Ratio 15.4 (6-22); Bilirubin Total 0.5 mg/dL (0.2-1.3); Blood Urea Nitrogen 14 mg/dL (7-17); Calcium 9.7 mg/dL (8.4-10.2); Carbon Dioxide 23 mmol/L (22-32); Chloride 112 mmol/L (98-107); Estimated Glomerular Filt Rate > 60.0 mL/min (>60); Globulin 3.4 g/dL (1.7-4.1); Glucose 124 mg/dL (80-110); HEMOLYSIS < 15 (0-50); Potassium 2.8 mmol/L (3.4-5.1); Sodium 143 mmol/L (137-145); Total Protein 7.5 g/dL (6.3-8.2)
[2020-03-07 05:15] LABS: Lithium 1.7 mmol/L (0.6-1.2)
[2020-03-07 05:25] LABS: Procalcitonin 0.11 ng/mL (<0.5)
[2020-03-07] MEDS: ENOXAPARIN 40 MG/0.4 ML SYRINGE SUBCUT (07:28)
[2020-03-07] MEDS: SODIUM CHLORIDE 0.9% FLUSH 10 ML IV ×2 (07:35→12:18)
[2020-03-07] MEDS: POTASSIUM CHLORIDE 30 MEQ in SODIUM CHLORIDE 0.9% 250 ML 88.333 ML IV ×2 (07:46→11:20)
--- NOTE | 2020-03-07 07:52 | PC.NURSE ---
Addendum entered by Luana Harper R.N. 03/07/20 12:58: Patient attempting to sit up in bed, patient unable to express needs, moans occasionally, 1mg Ativan IVP given, BG checked 116. Original Note: Patient lying on left side tremulous, moaning, unable to answer this RN's questions, drooling. 1mg IVP Ativan given, Dr Ramos aware, Rivka hung as ordered. Bed alarm on.
[2020-03-07 09:23] LABS: Lithium 1.6 mmol/L (0.6-1.2)
--- NOTE | 2020-03-07 11:29 | DIET.PN ---
Dietary Progress Note Assessment: 69y F admitted for lithium toxicity referred to nutrition for weight management. Pt information provided by supportive spouse as pt is sleeping. Per spouse, pt sleeps all day and is up all night so he is unsure what she actually eats. Pt is at usual body weight today (56.3kg), however spouse mentioned 1mo ago she was weighed at doctors office and was 67kg which was unusual and very high body weight for her. He feels it may be related to eating sweets, or was an error. does not have any weight records for this patient. She has chronic diarrhea for 2y and has frequent accidents. Pt likes yogurt, jello, burgers, fish. Has dentures so some issues c chewing (she likes salads but can't really eat them). HT: 157.4cm WT: 56.3kg UBW: 56.3kg BMI: 22.7 Labs: renal labs normalized overnight MNA: 11 Dillon: 15 @ risk for skin breakdown Diet Order: NPO EER: 1,400 kcal (25kcal/kg), 56g PRO (1g/kg) Monitoring/Evaluations: RD concerned at pts nocturnal habits as hospital kitchen closed 7pm-7am when pt is generally awake.
--- NOTE | 2020-03-07 13:40 | PM.PN.1 ---
Subjective Subjective Date Patient Seen: 03/07/20 Interval history: Camilla Kim is a 69-year-old female with a past medical history significant for bipolar depression, hypertension, and hypothyroidism who presented to the ED via EMS due to confusion, severe agitation, tremors and trouble walking with a toxic lithium level. The patient is sleeping in bed comfortably. The states that ?she is finally sleeping and she needs it? as she has not slept well the last several nights. She continues to have significant restlessness, tremulousness, confusion with moaning and crying out when she is awake. She is unable to answer questions or participate in interview or review of systems. She has received a total of 12 mg of Ativan since admission over the last 24 hours. Plan to ONLY give Ativan if absolutely necessary for agitation and tremulousness. Continue IV fluid hydration and monitoring of blood glucose levels. She is voiding via Richards catheter. Exam Vital Signs (past 8 hours): - 03/07/20 07:31 03/07/20 08:12 03/07/20 08:34 Temperature 99.0 F Pulse Rate 65 80 80 Respiratory Rate 20 16 16 Blood Pressure 113/62 Pulse Oximetry 98 96 Oxygen Delivery Method Room Air Oxygen Flow Rate 0 Narrative Exam Narrative: General: Middle-aged female lying in bed sleeping and appears comfortable. When the patient is awakened she is restless, tremulous and agitated with moaning and crying out. HEENT: Normocephalic, atraumatic. External ears without defect. Pupils equal, round, and reactive to light. Anicteric sclerae, moist conjunctivae, and no lid lag. Neck: Supple with full range of motion. No jugular venous distension. No lymphadenopathy or thyromegaly. Cardiovascular: Regular rate and rhythm without murmurs, rubs, or gallops appreciated Pulmonary: Clear to auscultation bilaterally without crackles, wheezes, or rhonchi. Normal respiratory effort with no use of accessory muscles. Abdomen: Soft, bowel sounds present, nontender, nondistended. No hepatosplenomegaly or masses appreciated. Extremities: No clubbing, cyanosis, or edema. Skin: Normal temperature, turgor, and texture; no ulcers, or subcutaneous nodules appreciated. Keratotic rash around bilateral lower extremities. Objective Labs Result Diagrams: 03/07/20 04:35 03/07/20 04:35 Labs: Laboratory Results - last 24 hr 03/06/20 03/06/20 03/06/20 16:11 16:11 16:11 WBC 19.5 H RBC 3.95 L Hgb 11.9 L Hct 35.2 L MCV 89.1 MCH 30.0 MCHC 33.7 RDW 12.7 Plt Count 526 H Neut % (Auto) 77.5 H Lymph % (Auto) 16.2 L Barren % (Auto) 4.9 Eos % (Auto) 0.4 L Baso % (Auto) 1.0 Neut # (Auto) 00374 H Lymph # (Auto) 3200 Barren # (Auto) 900 Eos # (Auto) 100 Baso # (Auto) 200 H Sodium 140 Potassium 3.4 Chloride 107 Carbon Dioxide 21 L BUN 17 Creatinine 1.22 H Estimated GFR 43.7 L BUN/Creatinine Ratio 13.9 Glucose 129 H Lactate Calcium 10.6 H Magnesium Iron TIBC % Saturation Transferrin Ferritin Total Bilirubin 0.7 AST 36 ALT 24 Alkaline Phosphatase 267 H Total Protein 8.8 H Albumin 4.7 Globulin 4.1 Albumin/Globulin Ratio 1.1 Procalcitonin TSH Urine Color Urine Appearance Urine pH Ur Specific Campbell Urine Protein Urine Glucose (UA) Urine Ketones Urine Occult Blood Urine Nitrate Urine Bilirubin Urine Urobilinogen Ur Leukocyte Esterase Urine RBC Urine WBC Ur Squamous Epith Cells Amorphous Sediment Urine Bacteria Ur Culture Indicated? Salicylates < 1.0 U Opiates 300ng/mL cut Ur Oxycodone Screen Urine Methadone Screen Acetaminophen < 10 L Ur Barbiturates Screen U Tricyclic Antidepress Ur Phencyclidine Scrn Ur Amphetamines Screen U Methamphetamines Scrn Ur MDMA Scrn (Ecstasy) U Benzodiazepines Scrn [place] 2.5 H* Urine Cocaine Screen U Marijuana (THC) Screen Ethyl Alcohol < 10 COVID-19 PCR 03/06/20 03/06/20 03/06/20 16:11 16:11 16:11 WBC RBC Hgb Hct MCV MCH MCHC RDW Plt Count Neut % (Auto) Lymph % (Auto) Barren % (Auto) Eos % (Auto) Baso % (Auto) Neut # (Auto) Lymph # (Auto) Barren # (Auto) Eos # (Auto) Baso # (Auto) Sodium Potassium Chloride Carbon Dioxide BUN Creatinine Estimated GFR BUN/Creatinine Ratio Glucose Lactate 2.7 H Calcium Magnesium Iron TIBC % Saturation Transferrin Ferritin Total Bilirubin AST ALT Alkaline Phosphatase Total Protein Albumin Globulin Albumin/Globulin Ratio Procalcitonin 0.12 TSH 0.522 Urine Color Urine Appearance Urine pH Ur Specific [place] Urine Protein Urine Glucose (UA) Urine Ketones Urine Occult Blood Urine Nitrate Urine Bilirubin Urine Urobilinogen Ur Leukocyte Esterase Urine RBC Urine WBC Ur Squamous Epith Cells Amorphous Sediment Urine Bacteria Ur Culture Indicated? Salicylates U Opiates 300ng/mL cut Ur Oxycodone Screen Urine Methadone Screen Acetaminophen Ur Barbiturates Screen U Tricyclic Antidepress Ur Phencyclidine Scrn Ur Amphetamines Screen U Methamphetamines Scrn Ur MDMA Scrn (Ecstasy) U Benzodiazepines Scrn [place] Urine Cocaine Screen U Marijuana (THC) Screen Ethyl Alcohol COVID-19 PCR 03/06/20 03/06/20 03/06/20 16:11 16:50 16:50 WBC RBC Hgb Hct MCV MCH MCHC RDW Plt Count Neut % (Auto) Lymph % (Auto) Barren % (Auto) Eos % (Auto) Baso % (Auto) Neut # (Auto) Lymph # (Auto) Barren # (Auto) Eos # (Auto) Baso # (Auto) Sodium Potassium Chloride Carbon Dioxide BUN Creatinine Estimated GFR BUN/Creatinine Ratio Glucose Lactate Calcium Magnesium 2.0 Iron TIBC % Saturation Transferrin Ferritin Total Bilirubin AST ALT Alkaline Phosphatase Total Protein Albumin Globulin Albumin/Globulin Ratio Procalcitonin TSH Urine Color Yellow Urine Appearance Clear Urine pH 7.0 Ur Specific [place] 1.010 Urine Protein Negative Urine Glucose (UA) Negative Urine Ketones Trace H Urine Occult Blood 1+ H Urine Nitrate Negative Urine Bilirubin Negative Urine Urobilinogen 0.2 Ur Leukocyte Esterase Negative Urine RBC 1-5/hpf Urine WBC 1-5/hpf Ur Squamous Epith Cells 0-1 /hpf Amorphous Sediment 2+ Urine Bacteria Occasional (0-1) Ur Culture Indicated? Specimen cultured Salicylates U Opiates 300ng/mL cut Negative Ur Oxycodone Screen Positive H Urine Methadone Screen Negative Acetaminophen Ur Barbiturates Screen Negative U Tricyclic Antidepress Negative Ur Phencyclidine Scrn Negative Ur Amphetamines Screen Negative U Methamphetamines Scrn Negative Ur MDMA Scrn (Ecstasy) Negative U Benzodiazepines Scrn Negative [place] Urine Cocaine Screen Negative U Marijuana (THC) Screen Negative Ethyl Alcohol COVID-19 PCR 03/06/20 03/06/20 03/06/20 18:49 20:55 20:55 WBC RBC Hgb Hct MCV MCH MCHC RDW Plt Count Neut % (Auto) Lymph % (Auto) Barren % (Auto) Eos % (Auto) Baso % (Auto) Neut # (Auto) Lymph # (Auto) Barren # (Auto) Eos # (Auto) Baso # (Auto) Sodium Potassium Chloride Carbon Dioxide BUN Creatinine Estimated GFR BUN/Creatinine Ratio Glucose Lactate 1.7 Calcium Magnesium Iron TIBC % Saturation Transferrin Ferritin Total Bilirubin AST ALT Alkaline Phosphatase Total Protein Albumin Globulin Albumin/Globulin Ratio Procalcitonin TSH Urine Color Urine Appearance Urine pH Ur Specific [place] Urine Protein Urine Glucose (UA) Urine Ketones Urine Occult Blood Urine Nitrate Urine Bilirubin Urine Urobilinogen Ur Leukocyte Esterase Urine RBC Urine WBC Ur Squamous Epith Cells Amorphous Sediment Urine Bacteria Ur Culture Indicated? Salicylates U Opiates 300ng/mL cut Ur Oxycodone Screen Urine Methadone Screen Acetaminophen Ur Barbiturates Screen U Tricyclic Antidepress Ur Phencyclidine Scrn Ur Amphetamines Screen U Methamphetamines Scrn Ur MDMA Scrn (Ecstasy) U Benzodiazepines Scrn [place] 2.2 H* Urine Cocaine Screen U Marijuana (THC) Screen Ethyl Alcohol COVID-19 PCR Negative 03/06/20 03/06/20 03/07/20 20:55 20:55 00:26 WBC RBC Hgb Hct MCV MCH MCHC RDW Plt Count Neut % (Auto) Lymph % (Auto) Barren % (Auto) Eos % (Auto) Baso % (Auto) Neut # (Auto) Lymph # (Auto) Barren # (Auto) Eos # (Auto) Baso # (Auto) Sodium Potassium Chloride Carbon Dioxide BUN Creatinine Estimated GFR BUN/Creatinine Ratio Glucose Lactate Calcium Magnesium Iron 68 TIBC 322 % Saturation 21 Transferrin 236 Ferritin 108 Total Bilirubin AST ALT Alkaline Phosphatase Total Protein Albumin Globulin Albumin/Globulin Ratio Procalcitonin TSH Urine Color Urine Appearance Urine pH Ur Specific [place] Urine Protein Urine Glucose (UA) Urine Ketones Urine Occult Blood Urine Nitrate Urine Bilirubin Urine Urobilinogen Ur Leukocyte Esterase Urine RBC Urine WBC Ur Squamous Epith Cells Amorphous Sediment Urine Bacteria Ur Culture Indicated? Salicylates U Opiates 300ng/mL cut Ur Oxycodone Screen Urine Methadone Screen Acetaminophen Ur Barbiturates Screen U Tricyclic Antidepress Ur Phencyclidine Scrn Ur Amphetamines Screen U Methamphetamines Scrn Ur MDMA Scrn (Ecstasy) U Benzodiazepines Scrn [place] 2.0 H* Urine Cocaine Screen U Marijuana (THC) Screen Ethyl Alcohol COVID-19 PCR 03/07/20 03/07/20 03/07/20 04:35 04:35 04:35 WBC 14.9 H RBC 3.47 L Hgb 10.4 L Hct 30.8 L MCV 88.8 MCH 30.0 MCHC 33.8 RDW 12.7 Plt Count 407 H Neut % (Auto) 87.2 H Lymph % (Auto) 7.2 L Barren % (Auto) 5.0 Eos % (Auto) 0.1 L Baso % (Auto) 0.5 Neut # (Auto) 50458 H Lymph # (Auto) 1100 Barren # (Auto) 700 Eos # (Auto) 0 Baso # (Auto) 100 Sodium 143 Potassium 2.8 L Chloride 112 H Carbon Dioxide 23 BUN 14 Creatinine 0.91 Estimated GFR > 60.0 BUN/Creatinine Ratio 15.4 Glucose 124 H Lactate Calcium 9.7 Magnesium Iron TIBC % Saturation Transferrin Ferritin Total Bilirubin 0.5 AST 39 H ALT 27 Alkaline Phosphatase 225 H Total Protein 7.5 Albumin 4.1 Globulin 3.4 Albumin/Globulin Ratio 1.2 Procalcitonin 0.11 TSH Urine Color Urine Appearance Urine pH Ur Specific [place] Urine Protein Urine Glucose (UA) Urine Ketones Urine Occult Blood Urine Nitrate Urine Bilirubin Urine Urobilinogen Ur Leukocyte Esterase Urine RBC Urine WBC Ur Squamous Epith Cells Amorphous Sediment Urine Bacteria Ur Culture Indicated? Salicylates U Opiates 300ng/mL cut Ur Oxycodone Screen Urine Methadone Screen Acetaminophen Ur Barbiturates Screen U Tricyclic Antidepress Ur Phencyclidine Scrn Ur Amphetamines Screen U Methamphetamines Scrn Ur MDMA Scrn (Ecstasy) U Benzodiazepines Scrn [place] Urine Cocaine Screen U Marijuana (THC) Screen Ethyl Alcohol COVID-19 PCR 03/07/20 03/07/20 04:35 08:50 WBC RBC Hgb Hct MCV MCH MCHC RDW Plt Count Neut % (Auto) Lymph % (Auto) Barren % (Auto) Eos % (Auto) Baso % (Auto) Neut # (Auto) Lymph # (Auto) Barren # (Auto) Eos # (Auto) Baso # (Auto) Sodium Potassium Chloride Carbon Dioxide BUN Creatinine Estimated GFR BUN/Creatinine Ratio Glucose Lactate Calcium Magnesium Iron TIBC % Saturation Transferrin Ferritin Total Bilirubin AST ALT Alkaline Phosphatase Total Protein Albumin Globulin Albumin/Globulin Ratio Procalcitonin TSH Urine Color Urine Appearance Urine pH Ur Specific [place] Urine Protein Urine Glucose (UA) Urine Ketones Urine Occult Blood Urine Nitrate Urine Bilirubin Urine Urobilinogen Ur Leukocyte Esterase Urine RBC Urine WBC Ur Squamous Epith Cells Amorphous Sediment Urine Bacteria Ur Culture Indicated? Salicylates U Opiates 300ng/mL cut Ur Oxycodone Screen Urine Methadone Screen Acetaminophen Ur Barbiturates Screen U Tricyclic Antidepress Ur Phencyclidine Scrn Ur Amphetamines Screen U Methamphetamines Scrn Ur MDMA Scrn (Ecstasy) U Benzodiazepines Scrn [place] 1.7 H* 1.6 H* Urine Cocaine Screen U Marijuana (THC) Screen Ethyl Alcohol COVID-19 PCR Assessment & Plan Assessment & Plan narrative: Camilla Kim is a 69-year-old female with a past medical history significant for bipolar depression, hypertension, and hypothyroidism who presented to the ED via EMS due to confusion, severe agitation, tremors and trouble walking with a toxic lithium level. 1. Acute lithium toxicity with dehydration, present on admission. Active. -Patient is treated for bipolar depression with duloxetine, lithium, and quetiapine followed by REBECA Valera for psychiatry. -Initial lithium level 2.5 which is in significantly high toxic range in background of chronic lithium use. -Symptoms of confusion, agitation, tremors and difficulty walking all fit lithium toxicity. -EKG demonstrated sinus tachycardia, mild nonspecific ST changes, no QT prolongation. Repeat EKG today did not demonstrate any QTc prolongation at 416 ms. -Initial WBC 19 and trending down now 14.9 presumably from lithium toxicity. Patient is afebrile and has no other signs of infection including: Negative urinalysis, negative chest x-ray, negative procalcitonin 0.11. -Initial calcium level mildly elevated at 10.6 which can be seen with lithium toxicity, as well as, dehydration. Calcium level normalized with IV fluid hydration now 9.7. -Continue normal saline at 100 mL/hr. Patient is NPO as she is not awake or alert enough to take in oral intake. Continue to monitor blood glucose every 6 hours while NPO. Hemoglobin A1c normal at 5.2%. -Continue to monitor lithium level every 6 hours now that this has peaked and trending downward until back into a normal range. ED physician contact poison control and will continue to contact poison control as needed. -Continue to monitor sodium levels for diabetes insipidus, renal function and electrolytes closely. -Consulted PICK PULLING MACHINE OPERATOR as it is unclear if this is represents intentional or unintentional overdose. -Consider CT brain without contrast and/or MRI brain if patient's mentation does not improve considerably within the next 1-2 days with resolution of lithium toxicity. -Low threshold to consult Psychiatry. 2. Hypokalemia, not present on admission. Active. -Initial potassium level 3.4. Potassium level trended down to 2.8 with aggressive IV fluid hydration. Received potassium chloride 60 mEq IV x1. Continue to monitor potassium level and replete as necessary. Initial magnesium level normal at 2.0 and trending down slightly now 1.8 with IV fluid hydration. Continue monitor magnesium level and replete if necessary. 3. Normocytic anemia, unknown chronicity, present on admission. Stable. -Initial hemoglobin 11.9 and MCV 89.1 without previous values for comparison. Hemoglobin trending down now 10.4 likely due to dilution from aggressive IV fluid hydration. Patient also has leukocytosis with thrombocytosis which are consistent with dehydration and lithium toxicity and improving with treatment with IV fluid hydration. -Iron profile within normal limits. -Consider outpatient Hematology/Oncology evaluation if laboratories are not improving by discharge. Code status: Full code, surrogate decision maker is spouse DVT prophylaxis: Enoxaparin, SCDs Disposition: Patient remains hospitalized for treatment of lithium toxicity.
[2020-03-07 14:09] LABS: Lithium 1.5 mmol/L (0.6-1.2)
[2020-03-07 17:00] LABS: Magnesium 1.8 mg/dL (1.6-2.3)
[2020-03-07] MEDS: LEVOTHYROXINE INJ 100 MCG/5 ML VIAL 37.5 MCG IV (17:47)
[2020-03-07 19:04] LABS: Hemoglobin A1C% w Est Avg Glu 5.2 % (4.0-6.0)
[2020-03-07 20:19] LABS: Lithium 1.3 mmol/L (0.6-1.2)
[2020-03-07 20:26] LABS: Alanine Aminotransferase 36 IU/L (<35); Albumin 3.8 g/dL (3.5-5.0); Albumin Globulin Ratio 1.2 (1.0-2.8); Alkaline Phosphatase 207 U/L (38-126); Aspartate Aminotransferase 46 IU/L (14-36); BUN Creatinine Ratio 11.2 (6-22); Bilirubin Total 0.5 mg/dL (0.2-1.3); Blood Urea Nitrogen 10 mg/dL (7-17); Calcium 9.8 mg/dL (8.4-10.2); Carbon Dioxide 20 mmol/L (22-32); Chloride 120 mmol/L (98-107); Estimated Glomerular Filt Rate > 60.0 mL/min (>60); Globulin 3.1 g/dL (1.7-4.1); Glucose 124 mg/dL (80-110); HEMOLYSIS 24 (0-50); Magnesium 1.9 mg/dL (1.6-2.3); Potassium 4.5 mmol/L (3.4-5.1); Sodium 148 mmol/L (137-145); Total Protein 6.9 g/dL (6.3-8.2)
--- NOTE | 2020-03-07 22:00 | PC.NURSE ---
Pt drowsey, difficult to awaken. CBG @1800 121 IVF infusing as per MD orders. Tele showing NSR per ICU staff. [place] level this evening 1.3 per lab Repositioned to right side Richards cath patent 750cc clear yellow urine. Call light w/in reach, in room. Continue w/plan of care.
[2020-03-07] MEDS: SODIUM CHLORIDE 0.45% 1,000 ML 100 ML IV (22:28)
[2020-03-08] VITALS (11 sets, daily range): BP systolic 106–164; BP diastolic 70–94; PULSE 78–111; RESP 14–24; TEMP 36.9–37.4; O2SAT 96–100
[2020-03-08 01:27] LABS: Lithium 1.1 mmol/L (0.6-1.2)
[2020-03-08] MEDS: LORazepam 2 MG/ML INJ 0.5 MG IV (05:29)
[2020-03-08 06:13] LABS: Add Manual Diff / Slide Review NO; Basophils Absolute Auto 100 /uL (0-100); Basophils Percent Auto 0.8 % (0-2); Eosinophils Absolute Auto 0 /uL (0-450); Hematocrit 32.4 % (36-46); Hemoglobin 10.3 g/dL (12.0-16.0); Lymphocytes Absolute Auto 2100 /uL (1100-4500); Lymphocytes Percent Auto 12.4 % (25-40); Mean Corpuscular HGB Conc 31.9 % (30-36); Mean Corpuscular Hemoglobin 29.5 PG (26-34); Mean Corpuscular Volume 92.7 fL (80-100); Monocytes Absolute Auto 700 /uL (0-900); Monocytes Percent Auto 4.1 % (3-14); Neutrophils Absolute Auto 13600 /uL (1500-7000); Neutrophils Percent Auto 82.7 % (50-75); Platelet Count 409 X10^3/uL (150-400); Red Cell Distribution Width 13.5 % (11.6-14.8); White Blood Cell Count 16.5 X10^3/uL (4.5-11.0)
[2020-03-08 06:25] LABS: Alanine Aminotransferase 48 IU/L (<35); Albumin 4.3 g/dL (3.5-5.0); Albumin Globulin Ratio 1.1 (1.0-2.8); Alkaline Phosphatase 245 U/L (38-126); Aspartate Aminotransferase 53 IU/L (14-36); BUN Creatinine Ratio 12.8 (6-22); Bilirubin Total 0.6 mg/dL (0.2-1.3); Blood Urea Nitrogen 12 mg/dL (7-17); Calcium 10.3 mg/dL (8.4-10.2); Carbon Dioxide 20 mmol/L (22-32); Chloride 115 mmol/L (98-107); Globulin 3.9 g/dL (1.7-4.1); Glucose 138 mg/dL (80-110); HEMOLYSIS < 15 (0-50); Magnesium 1.7 mg/dL (1.6-2.3); Potassium 3.6 mmol/L (3.4-5.1); Sodium 146 mmol/L (137-145); Total Protein 8.2 g/dL (6.3-8.2)
[2020-03-08 06:40] LABS: Procalcitonin 0.12 ng/mL (<0.5)
--- NOTE | 2020-03-08 08:06 | DI.CT.S_ITS ---
PROCEDURE: CT CHEST ABD PEL W CON INDICATIONS: Confusion, leukocytosis, pain TECHNIQUE: After the administration of intravenous contrast, 5 mm thick sections acquired from the lung apices to the symphysis. 5 mm coronal and sagittal reformats were performed, with additional 7 mm MIP reformats through the lungs. For radiation dose reduction, the following was used: automated exposure control, adjustment of mA and/or kV according to patient size. COMPARISON: None. FINDINGS: Image quality: Somewhat compromised by patient inability to fully cooperate with the examination.. The patient was scanned in decubitus positioning for comfort. CHEST: Lungs and pleura: No acute airspace opacities. No pleural effusions or pneumothorax. Central and peripheral airways appear patent and normal in caliber. Mediastinum: Heart size is normal. No pericardial effusion. No mediastinal or hilar adenopathy by size criteria. Thoracic aorta and central pulmonary arteries are normal in size. Esophagus is normal in caliber. No hiatal hernia. Chest wall: No axillary or supraclavicular adenopathy by size criteria. Thyroid gland appears normal . ABDOMEN: Solid organs: Liver is normal in size and enhancement. The liver appears fatty infiltrated and contains several sub cm hypodensities too small to accurately characterize by CT scanning but likely representing small hemangiomas or cysts. Gallbladder has been resected. Biliary system is non dilated. Pancreas enhances normally. Spleen is normal in size and enhancement. No adrenal nodules. Kidneys demonstrate normal size and enhancement, without hydronephrosis. Peritoneum and bowel: Bowel loops demonstrate normal wall thickness and caliber. No free fluid or air. Nodes and vessels: No retroperitoneal or mesenteric adenopathy by size criteria. Aorta and inferior vena cava are normal in size. Miscellaneous: No ventral hernias. PELVIS: Genitourinary: Bladder wall thickness is normal considering presence of Richards catheter within the bladder lumen. Miscellaneous: No inguinal hernias or adenopathy. Bones: No suspicious bony lesions. No vertebral body compression fractures. IMPRESSION: Patient scanned in decubitus position to assist in obtaining optimal visualization for this patient who is unable to fully cooperate with the examination. No pneumonia or neoplasm found, within the peritoneal space no inflammatory process is seen. Note is made of fatty infiltration throughout the liver. No acute disease is found. Richards catheter fully empties the bladder lumen. Dictated by: Marc Coleman M.D. on 03/08/2020 at 9:20 Approved by: Marc Coleman M.D. on 03/08/2020 at 9:26
[2020-03-08] MEDS: SODIUM CHLORIDE 0.45% 1,000 ML 100 ML IV (08:08)
[2020-03-08] MEDS: LORazepam 2 MG/ML INJ 1 MG IV (08:23)
--- NOTE | 2020-03-08 08:57 | DI.CT.S_ITS ---
PROCEDURE: CT HEAD/BRAIN WO CON INDICATIONS: Confusion, lithium toxicity TECHNIQUE: Noncontrast 4.5 mm thick angled axial sections acquired from the foramen magnum to the vertex, with coronal and sagittal reformats. For radiation dose reduction, the following was used: automated exposure control, adjustment of mA and/or kV according to patient size. COMPARISON: [facility], CT, CT CHEST ABD PEL W CON, 03/08/2020, 8:22. [facility], CT, CT BRAIN WO CON, 12/14/2015, 11:43. FINDINGS: Image quality: Diagnostic, with note made of motion artifact. CSF spaces: Basal cisterns are patent. No extra-axial fluid collections. The ventricles are symmetric in size and shape. Brain: No intracranial bleeds or masses. There is cerebral volume loss for age, with resultant ventricular and sulcal prominence. There are periventricular and deep white matter chronic small vessel ischemic changes. There is intracranial internal carotid artery atherosclerosis. Skull and face: Calvarium and visualized facial bones appear intact, without suspicious lesions. Sinuses: Visualized sinuses and mastoids are clear. IMPRESSION: Mildly limited study, without an acute abnormality identified for age. Dictated by: Zac Ch M.D. on 03/08/2020 at 8:27 Approved by: Zac Ch M.D. on 03/08/2020 at 8:28
--- NOTE | 2020-03-08 09:07 | PC.NURSE ---
Addendum entered by Luana Harper R.N. 03/08/20 13:38: Patient yelling out occasionally, unable to express what she needs,sat patient up to 90 degrees and offered water which patient took without difficulty. Gave PO seroquel with applesauce. alarm on. Addendum entered by Luana Harper R.N. 03/08/20 09:51: Patient attempting to get out of bed, two assist to BSC, gait unsteady. Patient had large formed BM, patient bathed and assisted back to bed. Following some commands. Patient relaxed and lying quietly in bed, alarm on. Original Note: Patient, yelling out and rolling around in bed, consoled with touch and voice, patient unable to follow commands. Says yes to and yeah, calls out for Britton occasionally. Patient unable to express needs. Leak in to assess patient. 1mg IVP ativan given, patient taken down for CT studies.
[2020-03-08] MEDS: ENOXAPARIN 40 MG/0.4 ML SYRINGE SUBCUT (09:24)
[2020-03-08] MEDS: SODIUM CHLORIDE 0.9% FLUSH 10 ML IV (09:24)
[2020-03-08 10:29] LABS: Bacteria Urine None Seen; WBC Urine None Seen (0-5/HPF)
[2020-03-08 10:36] LABS: Appearance Urine UA CLEAR; Bilirubin Urine UA NEGATIVE (NEGATIVE); Color Urine UA YELLOW; Glucose Urine UA NEGATIVE (Negative); Ketones Urine UA 1+ (NEGATIVE); Leukocyte Esterase Urine UA NEGATIVE (NEGATIVE); Nitrite Urine UA NEGATIVE (Negative); Occult Blood Urine UA TRACE-LYSED (Negative); Protein Urine UA NEGATIVE (Negative); Specific Gravity Urine UA <=1.005 (1.000-1.035); Urobilinogen Urine UA 0.2 E.U./dL (0.2)
[2020-03-08 10:45] LABS: Culture Indicated Urine Cult Not Indicated; RBC Urine 0-1/HPF (0-5/HPF)
[2020-03-08] MEDS: QUETIAPINE 25 MG TABLET PO ×2 (13:32→22:13)
--- NOTE | 2020-03-08 13:38 | P.PN_ITS ---
Subjective Subjective Date Patient Seen: 03/08/20 Interval history: Camilla Kim is a 69-year-old female with a past medical history significant for bipolar depression, hypertension, and hypothyroidism who presented to the ED via EMS due to confusion, severe agitation, tremors and trouble walking with a toxic lithium level. The patient is lying in bed sleeping comfortably. The patient is delirious, mildly restless and tremulous when awake. She intermittently moans and cries out but is unable to speak (other thank 1 word answers) or converse. CT head, chest, abdomen and pelvis was negative for any acute or infectious process. Her lithium level is now 1.0 which is within normal limits but likely still high for her in context of lithium toxicity. Consulted Psychiatry for recommendations with psychiatric medications. Ordered Seroquel 25 mg twice daily as needed for agitation as patient was able to drink fluid this morning with nursing staff. Plan to give Seroquel preferentially over Ativan and will only give Ativan if absolutely necessary for agitation and tremulousness. Continue IV fluid hydration and monitoring of blood glucose levels. She is voiding via Richards catheter and eliminating without difficulty. Plan to remove Richards catheter as likely causing some agitation. Exam Vital Signs (past 8 hours): - 03/08/20 08:00 03/08/20 09:19 03/08/20 09:22 Temperature 98.8 F Pulse Rate 103 H 90 90 Respiratory Rate 17 20 20 Blood Pressure 132/94 H 164/75 H 164/75 H Pulse Oximetry 98 03/08/20 10:30 03/08/20 12:50 Temperature 98.6 F Pulse Rate 111 H Respiratory Rate 16 18 Blood Pressure 123/74 Pulse Oximetry 99 100 Oxygen Delivery Method Room Air Oxygen Flow Rate 0 Narrative Exam Narrative: General: Middle-aged female lying in bed sleeping and appears comfortable. When the patient is awakened she is delirious, mildly restless and tremulous, agitated with moaning and crying out. HEENT: Normocephalic, atraumatic. External ears without defect. Pupils equal, round, and reactive to light. Anicteric sclerae, moist conjunctivae, and no lid lag. Neck: Supple with full range of motion. No jugular venous distension. No lymphadenopathy or thyromegaly. Cardiovascular: Regular rate and rhythm without murmurs, rubs, or gallops elfego reciated Pulmonary: Clear to auscultation bilaterally without crackles, wheezes, or rhonchi. Normal respiratory effort with no use of accessory muscles. Abdomen: Soft, bowel sounds present, nontender, nondistended. No hepatosplenomegaly or masses appreciated. Extremities: No clubbing, cyanosis, or edema. Skin: Normal temperature, turgor, and texture; no ulcers, or subcutaneous nodules appreciated. Keratotic rash around bilateral lower extremities. Neurologic: Cranial nerves grossly intact. Psychiatric: Delirious. Objective Labs Result Diagrams: 03/08/20 06:00 03/08/20 06:00 Labs: Laboratory Results - last 24 hr 03/07/20 03/07/20 03/07/20 04:35 04:35 13:26 WBC RBC Hgb Hct MCV MCH MCHC RDW Plt Count Neut % (Auto) Lymph % (Auto) [place] % (Auto) Eos % (Auto) Baso % (Auto) Neut # (Auto) Lymph # (Auto) [place] # (Auto) Eos # (Auto) Baso # (Auto) Sodium Potassium Chloride Carbon Dioxide BUN Creatinine Estimated GFR BUN/Creatinine Ratio Glucose Hemoglobin A1c 5.2 Calcium Magnesium 1.8 Total Bilirubin AST ALT Alkaline Phosphatase Total Protein Albumin Globulin Albumin/Globulin Ratio Procalcitonin Urine Color Urine Appearance Urine pH Ur Specific [place] Urine Protein Urine Glucose (UA) Urine Ketones Urine Occult Blood Urine Nitrate Urine Bilirubin Urine Urobilinogen Ur Leukocyte Esterase Urine RBC Urine WBC Urine Bacteria Ur Culture Indicated? [place] 1.5 H 03/07/20 03/07/20 03/08/20 19:47 19:47 01:00 WBC RBC Hgb Hct MCV MCH MCHC RDW Plt Count Neut % (Auto) Lymph % (Auto) [place] % (Auto) Eos % (Auto) Baso % (Auto) Neut # (Auto) Lymph # (Auto) [place] # (Auto) Eos # (Auto) Baso # (Auto) Sodium 148 H Potassium 4.5 D Chloride 120 H Carbon Dioxide 20 L BUN 10 Creatinine 0.89 Estimated GFR > 60.0 BUN/Creatinine Ratio 11.2 Glucose 124 H Hemoglobin A1c Calcium 9.8 Magnesium 1.9 Total Bilirubin 0.5 AST 46 H ALT 36 H Alkaline Phosphatase 207 H Total Protein 6.9 Albumin 3.8 Globulin 3.1 Albumin/Globulin Ratio 1.2 Procalcitonin Urine Color Urine Appearance Urine pH Ur Specific [place] Urine Protein Urine Glucose (UA) Urine Ketones Urine Occult Blood Urine Nitrate Urine Bilirubin Urine Urobilinogen Ur Leukocyte Esterase Urine RBC Urine WBC Urine Bacteria Ur Culture Indicated? [place] 1.3 H 1.1 03/08/20 03/08/20 03/08/20 06:00 06:00 06:00 WBC 16.5 H RBC 3.50 L Hgb 10.3 L Hct 32.4 L MCV 92.7 D MCH 29.5 MCHC 31.9 RDW 13.5 Plt Count 409 H Neut % (Auto) 82.7 H Lymph % (Auto) 12.4 L [place] % (Auto) 4.1 Eos % (Auto) 0.0 L Baso % (Auto) 0.8 Neut # (Auto) 70736 H Lymph # (Auto) 2100 [place] # (Auto) 700 Eos # (Auto) 0 Baso # (Auto) 100 Sodium Potassium Chloride Carbon Dioxide BUN Creatinine Estimated GFR BUN/Creatinine Ratio Glucose Hemoglobin A1c Calcium Magnesium Total Bilirubin AST ALT Alkaline Phosphatase Total Protein Albumin Globulin Albumin/Globulin Ratio Procalcitonin 0.12 Urine Color Urine Appearance Urine pH Ur Specific [place] Urine Protein Urine Glucose (UA) Urine Ketones Urine Occult Blood Urine Nitrate Urine Bilirubin Urine Urobilinogen Ur Leukocyte Esterase Urine RBC Urine WBC Urine Bacteria Ur Culture Indicated? [place] 1.0 03/08/20 03/08/20 06:00 09:00 WBC RBC Hgb Hct MCV MCH MCHC RDW Plt Count Neut % (Auto) Lymph % (Auto) [place] % (Auto) Eos % (Auto) Baso % (Auto) Neut # (Auto) Lymph # (Auto) [place] # (Auto) Eos # (Auto) Baso # (Auto) Sodium 146 H Potassium 3.6 Chloride 115 H Carbon Dioxide 20 L BUN 12 Creatinine 0.94 Estimated GFR 59.0 L BUN/Creatinine Ratio 12.8 Glucose 138 H Hemoglobin A1c Calcium 10.3 H Magnesium 1.7 Total Bilirubin 0.6 AST 53 H ALT 48 H Alkaline Phosphatase 245 H Total Protein 8.2 Albumin 4.3 Globulin 3.9 Albumin/Globulin Ratio 1.1 Procalcitonin Urine Color Yellow Urine Appearance Clear Urine pH 7.0 Ur Specific [place] <=1.005 Urine Protein Negative Urine Glucose (UA) Negative Urine Ketones 1+ H Urine Occult Blood Trace-lysed Urine Nitrate Negative Urine Bilirubin Negative Urine Urobilinogen 0.2 Ur Leukocyte Esterase Negative Urine RBC 0-1/hpf Urine WBC None seen Urine Bacteria None seen Ur Culture Indicated? Cult not indicated [place] Assessment & Plan Assessment & Plan narrative: Camilla Kim is a 69-year-old female with a past medical history significant for bipolar depression, hypertension, and hypothyroidism who presented to the ED via EMS due to confusion, severe agitation, tremors and trouble walking with a toxic lithium level. 1. Acute lithium toxicity with dehydration, present on admission. Active. -Patient is treated for bipolar depression with duloxetine, lithium, and quetiapine followed by [facility] for psychiatry. -Initial lithium level 2.5 which is in significantly high toxic range in background of chronic lithium use. [place] level trending down now 1.0. Continue to monitor lithium level every 6 hours until undetectable. -Symptoms of confusion, agitation, tremors, difficulty walking, nausea and vomiting all fit lithium toxicity. -EKG demonstrated sinus tachycardia, mild nonspecific ST changes, no QT prolongation. Repeat EKG today did not demonstrate any QTc prolongation at 416 ms. -Initial WBC 19 trended down to 14.9 and increased to 16.5 due to from lithium toxicity. Patient is afebrile and has no other signs of infection including: Negative urinalysis, negative chest x-ray, negative procalcitonin, negative CT brain without contrast, CT chest without contrast, CT abdomen and pelvis with contrast. -Continue IV fluid hydration and switched from normal saline to 0.45% normal saline at 150 mL/hr to avoid hypernatremia and provide free water. Patient is n ot awake or alert enough to take in oral intake but ordered mechanical soft diet with 1:1 feeding ONLY if she awakens and is alert enough to eat. Continue to monitor blood glucose every 6 hours while NPO and will provide glucose source if becomes hypoglycemic. Hemoglobin A1c normal at 5.2%. -Continue to monitor sodium levels for diabetes insipidus, renal function and electrolytes closely and replete as necessary. -Consulted [employer] as it is unclear if this is represents intentional or unintentional overdose. -Consulted Psychiatry, Dr. Alvarez, and we appreciate his time and recommendations. Ordered Seroquel 25 mg twice daily as needed for agitation (if able to take in PO intake) and will try to avoid and ONLY give Ativan if absolutely necessary for agitation. Plan to attempt transferring the patient to higher level of care for Psychiatry with multidisciplinary approach. 2. Acute toxic encephalopathy, present on admission. Active. -Patient is delirious likely due to lithium toxicity versus psychotic break. -Continue to treat lithium toxicity as above. 3. Hypokalemia, not present on admission. Resolved. -Initial potassium level 3.4. Potassium level trended down to 2.8 with aggre ssive IV fluid hydration. Received potassium chloride 60 mEq IV x1. Potassium level now normal at 3.6. Continue to monitor potassium level and replete as necessary. Initial magnesium level normal at 2.0 and trending down slightly now 1.7 with IV fluid hydration. Continue monitor magnesium level and replete if necessary. 4. Hepatic steatosis with mild transaminitis, likely chronic, present on admission. Stable. -CT abdomen and pelvis with contrast demonstrated hepatic steatosis. Gallbladde r surgically absent. No biliary ductal dilatation. -Initial LFTs: Total bilirubin 0.7, AST 36, ALT 24, and alkaline phosphatase 267. Patient has developed mild transaminitis which is likely secondary to hepatic steatosis. 5. Normocytic anemia, unknown chronicity, present on admission. Stable. -Initial hemoglobin 11.9 and MCV 89.1 which is only minimally anemic without previous values for comparison. Hemoglobin trending down now 10.3 likely due to dilution from aggressive IV fluid hydration. Patient also has leukocytosis with thrombocytosis which are consistent with dehydration and lithium toxicity and improving with treatment with IV fluid hydration. -Iron profile within normal limits. -Consider outpatient Hematology/Oncology evaluation if laboratories are not improving by discharge. Code status: Full code, surrogate decision maker is spouse DVT prophylaxis: Enoxaparin, SCDs Disposition: Patient remains hospitalized for treatment of lithium toxicity. Plan to attempt transferring patient to higher level of care for Psychiatry with multidisciplinary approach.
[2020-03-08 13:46] LABS: Lithium 0.8 mmol/L (0.6-1.2)
--- NOTE | 2020-03-08 14:26 | P.CONS_ITS ---
History of Present Illness Consult details Date Patient Seen: 03/08/20 Time Patient Seen: 17:30 Chief complaint: Not herself Reason for consult: Ina toxicity Requesting provider: Bella Ramos Narrative: This is the [address] [place] [address] Psychiatry evaluation for this 69-year-old female was brought into the emergency department by her on 03/06/2020 for changes in mental status. The patient is unable to provide a coherent history and historical information was obtained from the patient's . The patient has a very long history of bipolar disorder because back many years and includes at least 4 hospitalizations. Her most recent hospitalization was about 4 years ago, when after several tries of various medications, she was finally started on lithium. The patient's reports that it was an almost magical transformation from severe depression to highly functional individual. She previously had trials of a number of different antidepressants all of which failed with the exception of imipramine and desipramine but unfortunately, she had severe allergic reactions developing a rash and had to discontinue them. The patient's reports that she had been doing fairly well until late this past summer when she began to have difficulty with nausea. But about 2 weeks ago, he noted that the patient began to have significant difficulty with confusion, trouble walking, and noticeable tremor. She also apparently had some episodes of nausea and vomiting and it is unclear whether not she had some sort of a viral illness before this period he states that last week she felt so poorly that she spent 2 days in bed and had little to no fluid intake during those couple of days. Her mental status began to gradually decline and alarmed about her change he brought her into the emergency department for further evaluation. During the patient's evaluation in the emergency department she was noted to be extremely agitated and often uncontrollable. She was given several doses of lorazepam and lithium level at in the emergency department was 2.5 in the ranges severely toxic. Since admission to the hospital, the patient's mental status continues to be s everely impaired. She requires assistance in everything and is barely able to follow the most basic instructions in order to assist her with ADLs. Either the patient does not respond, or she responds incoherently to attempts to interact with her. At times when nursing staff would have to touch the patient she would become extremely agitated. This is improved over time. In obtaining collateral information from the , he states that he is the 1 who usually dispenses medications the patient however it is not inconceivable that she sometimes gets up at night and could have taken additional doses. Her current prescribed dose is 600 mg per night which is not a severely high dose. The does not believe that or perceive that the lithium supply of her prescription has been going down more rapidly than usual. Meds Home Medications and Allergies Home Medications Medication Instructions Recorded Confirmed Type amlodipine 10 mg PO DAILY 03/06/20 03/06/20 History duloxetine 60 mg PO DAILY 03/06/20 03/06/20 History levothyroxine 75 mcg PO DAILY 03/06/20 03/06/20 History lithium carbonate 600 mg PO BEDTIME 03/06/20 03/06/20 History quetiapine 50 mg PO BEDTIME 03/06/20 03/06/20 History Allergies Allergy/AdvReac Type Severity Reaction Status Date / Time Sulfa (Sulfonamide Allergy Unknown Verified 03/06/20 16:27 Antibiotics) desipramine Allergy Rash Verified 03/07/20 11:24 Review of Systems Review of Systems ROS: Yes unobtainable due to mental condition Exam Vital Signs (past 8 hours): - 03/08/20 08:00 03/08/20 09:19 03/08/20 09:22 Temperature 98.8 F Pulse Rate 103 H 90 90 Respiratory Rate 17 20 20 Blood Pressure 132/94 H 164/75 H 164/75 H Pulse Oximetry 98 03/08/20 10:30 03/08/20 12:50 03/08/20 14:08 Temperature 98.6 F Pulse Rate 111 H 81 Respiratory Rate 16 18 Blood Pressure 123/74 Pulse Oximetry 99 100 Oxygen Delivery Method Room Air Oxygen Flow Rate 0 Narrative Exam Narrative: MENTAL STATUS EXAMINATION: Appearance: The patient is a thin but well-developed and well-nourished female seen lying in her hospital bed and does not respond to her name or shaking her shoulders. She seems profoundly sedated. Behavior: As above, the patient is profoundly sedated and does not cooperate with the examination. Eye Contact: Unobtainable Speech: The patient mumbles incoherently Motor Movement: Psychomotor retardation the patient appears to be asleep and severely sedated Gait: Not observed Mood: Unable to provide a stated mood Affect: Sedated Thought Process: Sedated Thought Content: Cannot articulate any thought content Attention: Cannot cooperate with cognitive testing Orientation: Cannot cooperate with cognitive testing Memory: Cannot cooperate with memory testing Judgement: Unable to obtain Insight: Unable to obtain Impulse Control: Poor by recent history, often severely agitated when disturbed. Objective Labs Result Diagrams: 03/09/20 06:01 03/09/20 06:01 Labs: Laboratory Results - last 24 hr 03/07/20 03/07/20 03/07/20 04:35 04:35 19:47 WBC RBC Hgb Hct MCV MCH MCHC RDW Plt Count Neut % (Auto) Lymph % (Auto) [place] % (Auto) Eos % (Auto) Baso % (Auto) Neut # (Auto) Lymph # (Auto) [place] # (Auto) Eos # (Auto) Baso # (Auto) Sodium Potassium Chloride Carbon Dioxide BUN Creatinine Estimated GFR BUN/Creatinine Ratio Glucose Hemoglobin A1c 5.2 Calcium Magnesium 1.8 Total Bilirubin AST ALT Alkaline Phosphatase Total Protein Albumin Globulin Albumin/Globulin Ratio Procalcitonin Urine Color Urine Appearance Urine pH Ur Specific [place] Urine Protein Urine Glucose (UA) Urine Ketones Urine Occult Blood Urine Nitrate Urine Bilirubin Urine Urobilinogen Ur Leukocyte Esterase Urine RBC Urine WBC Urine Bacteria Ur Culture Indicated? [place] 1.3 H 03/07/20 03/08/20 03/08/20 19:47 01:00 06:00 WBC RBC Hgb Hct MCV MCH MCHC RDW Plt Count Neut % (Auto) Lymph % (Auto) [place] % (Auto) Eos % (Auto) Baso % (Auto) Neut # (Auto) Lymph # (Auto) [place] # (Auto) Eos # (Auto) Baso # (Auto) Sodium 148 H Potassium 4.5 D Chloride 120 H Carbon Dioxide 20 L BUN 10 Creatinine 0.89 Estimated GFR > 60.0 BUN/Creatinine Ratio 11.2 Glucose 124 H Hemoglobin A1c Calcium 9.8 Magnesium 1.9 Total Bilirubin 0.5 AST 46 H ALT 36 H Alkaline Phosphatase 207 H Total Protein 6.9 Albumin 3.8 Globulin 3.1 Albumin/Globulin Ratio 1.2 Procalcitonin Urine Color Urine Appearance Urine pH Ur Specific [place] Urine Protein Urine Glucose (UA) Urine Ketones Urine Occult Blood Urine Nitrate Urine Bilirubin Urine Urobilinogen Ur Leukocyte Esterase Urine RBC Urine WBC Urine Bacteria Ur Culture Indicated? [place] 1.1 1.0 03/08/20 03/08/20 03/08/20 06:00 06:00 06:00 WBC 16.5 H RBC 3.50 L Hgb 10.3 L Hct 32.4 L MCV 92.7 D MCH 29.5 MCHC 31.9 RDW 13.5 Plt Count 409 H Neut % (Auto) 82.7 H Lymph % (Auto) 12.4 L [place] % (Auto) 4.1 Eos % (Auto) 0.0 L Baso % (Auto) 0.8 Neut # (Auto) 09843 H Lymph # (Auto) 2100 [place] # (Auto) 700 Eos # (Auto) 0 Baso # (Auto) 100 Sodium 146 H Potassium 3.6 Chloride 115 H Carbon Dioxide 20 L BUN 12 Creatinine 0.94 Estimated GFR 59.0 L BUN/Creatinine Ratio 12.8 Glucose 138 H Hemoglobin A1c Calcium 10.3 H Magnesium 1.7 Total Bilirubin 0.6 AST 53 H ALT 48 H Alkaline Phosphatase 245 H Total Protein 8.2 Albumin 4.3 Globulin 3.9 Albumin/Globulin Ratio 1.1 Procalcitonin 0.12 Urine Color Urine Appearance Urine pH Ur Specific [place] Urine Protein Urine Glucose (UA) Urine Ketones Urine Occult Blood Urine Nitrate Urine Bilirubin Urine Urobilinogen Ur Leukocyte Esterase Urine RBC Urine WBC Urine Bacteria Ur Culture Indicated? [place] 03/08/20 03/08/20 09:00 13:15 WBC RBC Hgb Hct MCV MCH MCHC RDW Plt Count Neut % (Auto) Lymph % (Auto) [place] % (Auto) Eos % (Auto) Baso % (Auto) Neut # (Auto) Lymph # (Auto) [place] # (Auto) Eos # (Auto) Baso # (Auto) Sodium Potassium Chloride Carbon Dioxide BUN Creatinine Estimated GFR BUN/Creatinine Ratio Glucose Hemoglobin A1c Calcium Magnesium Total Bilirubin AST ALT Alkaline Phosphatase Total Protein Albumin Globulin Albumin/Globulin Ratio Procalcitonin Urine Color Yellow Urine Appearance Clear Urine pH 7.0 Ur Specific [place] <=1.005 Urine Protein Negative Urine Glucose (UA) Negative Urine Ketones 1+ H Urine Occult Blood Trace-lysed Urine Nitrate Negative Urine Bilirubin Negative Urine Urobilinogen 0.2 Ur Leukocyte Esterase Negative Urine RBC 0-1/hpf Urine WBC None seen Urine Bacteria None seen Ur Culture Indicated? Cult not indicated [place] 0.8 Assessment & Plan Assessment & Plan narrative: The patient is a 69-year-old female with a significant history of depression for many years with difficulty finding the correct treatment until being treated with lithium about 4 years ago. Ina treatment for depression was extremely effective until a few months ago when the patient apparently began to have some difficulty with nausea and possibly ambulation that severely worsened in the last 2 weeks. In the last several days the patient has had significant changes in her mental status the point that she had become severely impaired and agitated at times. She has required frequent medication in order to maintain safety of the patient and staff. At this point, it appears that the patient has severe lithium toxicity with the proximal cause unknown. Patient's notes that about a week ago she had 2 days where she apparently was bed ridden and did not take in any fluids which may have been the precipitant resulting in her ED visit and admission. Recommendations: 1. Continue to hold lithium and push fluids. May consider dialysis if lithium levels remain high. 2. Continue serial lithium levels as you are doing. 3. Recommend minimizing lorazepam and use quetiapine 25-50 mg up to t.i.d. as needed for severe agitation. 4. Recommend considering transfer to geropsych unit with higher levels of specialty care including nephrology and neurology if needed. 5. Will continue to follow with you. Time Spent With Patient Time with patient: Greater than 35 minutes
[2020-03-08] MEDS: SODIUM CHLORIDE 0.45% 1,000 ML 150 ML IV (15:20)
--- NOTE | 2020-03-08 15:36 | CM.DANOTE ---
DCP/Assessment: Reviewed chart. DAM TENDER consult received for mental health needs? PCP is Dr. Rubio in . Primary payor is 1)Medicare 2)[facility]. Patient admitted to [facility] with toxic lithium level. Patient with long h/o bipolar depression and has been on lithium for awhile. Patient unable to participate in assessment. Attempted visit with patient on 03-07-20, patient in position, moaning and groaning. Spouse/Britton at bedside explained role. Spouse reports patient has long h/o depression in which she has needed to be placed in the past for medication stabilization. Spouse reports that patient's current behavior is not her baseline. Spouse provides patient with her daily medication however, he is unsure if patient took additional lithium or not? Spouse denies any previous suicide attempts. Patient and spouse have been together x37yrs. Spouse is primary caregiver for patient. However, he does report that at baseline she can ambulate and function independently. However, now she is unable to do any of her own ADL's. Spoke with Dr. Ramos whom reports that patient may still be getting her lithium level to normalize. Dr. Ramos unsure at this point if patient will need higher level of care. Psychiatric consult ordered today. Dr. Alvarez expected to see. P: Pending. DAM TENDER to follow closely for d/c planning needs. Unclear at this time what needs patient will have. Spouse very supportive. CRUZ Aquino Discharge Planning/Care Management Advanced directive, confirm from FAMILY Start: 03/06/20 20:12 Freq: Q24H Status: Active Protocol: Document 03/06/20 20:13 JT (Rec: 03/06/20 20:13 JT [id number]) Advance Directive, confirm on record Time 20:13 Person contacted Copy received No Document 03/07/20 20:12 KMD (Rec: 03/07/20 21:16 KMD [id number]) Advance Directive, confirm on record Time 20:13 Person contacted Copy received No Time 21:16 CM Discharge Assessment Start: 03/08/20 15:29 Freq: Status: Active Protocol: Document 03/08/20 15:29 KJS (Rec: 03/08/20 15:36 KJS [id number]) Discharge Planning Assessment Assigned Major Sales Associate Fide Hurt, DAM TENDER Contact Information Britton Kim (spouse) # Advance Directives? No History Provided By Significant Other Prior Living Arrangements Apartment/Condo Household Members spouse,family,children Type of transporation used prior to Relies on Others admit Independent with ADL's Yes Is patient alert and oriented? No Caregiver for Another No Comment D/C needs unknown at this time . Barriers to Discharge Yes Comment Pending needs. Whiteboard Updated in Patient Room with Yes name and ext. # of Major Sales Associate Review Status In Process Next Review Type Continued Stay Review
[2020-03-08] MEDS: LEVOTHYROXINE INJ 100 MCG/5 ML VIAL 37.5 MCG IV (16:55)
[2020-03-08] MEDS: DEXTROSE 5% WATER 1,000 ML 125 ML IV (18:52)
[2020-03-08 20:09] LABS: BUN Creatinine Ratio 13.8 (6-22); Blood Urea Nitrogen 11 mg/dL (7-17); Calcium 10.2 mg/dL (8.4-10.2); Carbon Dioxide 20 mmol/L (22-32); Chloride 110 mmol/L (98-107); Estimated Glomerular Filt Rate > 60.0 mL/min (>60); Glucose 131 mg/dL (80-110); HEMOLYSIS < 15 (0-50); Magnesium 1.6 mg/dL (1.6-2.3); Potassium 3.1 mmol/L (3.4-5.1); Sodium 141 mmol/L (137-145)
[2020-03-08 20:32] LABS: Lithium 0.6 mmol/L (0.6-1.2)
[2020-03-08] MEDS: MAGNESIUM SULFATE 2 GM/50 ML PIGGYBACK IV (22:04)
[2020-03-09] MEDS: POTASSIUM CHLORIDE 40 MEQ in SODIUM CHLORIDE 0.9% 500 ML 130 ML IV (00:34)
--- NOTE | 2020-03-09 02:27 | PC.NURSE ---
Addendum entered by Kassie Vargas R.N. 03/09/20 05:40: Earlier patient's spouse insisted staff attempt to ambulate patient (this RN was not available at the time) so MINI BAR ATTENDANT enlisted help of 3 other staff but patient not able to support weight so only moved a couple steps and then back to bed. Patient later was incontinent of 2 large, liquid, stools. Currently resting in bed but makes squealing noises when attempts made to move. Has offered minimal verbal interaction except to say please and an occasional okay. Spouse not always understanding of staff's availability in being able to get patient out of bed and did insist that MINI BAR ATTENDANT get patient up to BSC by herself when other staff not available to assist. Addendum entered by Kassie Vargas R.N. 03/09/20 05:38: Lost IV access and unsuccessful restart x 2 so restarted by Melissa CUFF SLITTER. Original Note: Earlier patient was intermittently moaning and did make attempt to crawl out of bed but after being gotten up to BSC to urinate patient went back to bed and is now sleeping quietly. She did not respond verbally to any questions asked of her when up to BSC. Respirations are shallow but breath sounds are CTA with RA sat of 97%. HRR but tachy at 111 bpm. BT present and abdomen is soft. Wearing an incontinent pad and is sometimes incontinent but also urinates when up to BSC. Is difficult to move as wants to stay lying in semi position on right side. Very weak in all extremities so is requiring 2 assist when out of bed. FLACC score is currently 0. Is not using SCD's or continuous pulse oximeter as patient reportedly more agitated when attached to devices. Seizure pads are in place. Spouse is rooming in. Fall risk score is high and bed alarm is activated.
[2020-03-09 06:00] VITALS: BP 135/81; PULSE 100; RESP 18; TEMP 36.8; O2SAT 100
[2020-03-09 06:19] LABS: Add Manual Diff / Slide Review NO; Basophils Absolute Auto 100 /uL (0-100); Basophils Percent Auto 0.8 % (0-2); Eosinophils Absolute Auto 100 /uL (0-450); Eosinophils Percent Auto 0.3 % (2-4); Hematocrit 34.5 % (36-46); Hemoglobin 11.3 g/dL (12.0-16.0); Lymphocytes Absolute Auto 1800 /uL (1100-4500); Lymphocytes Percent Auto 10.4 % (25-40); Mean Corpuscular HGB Conc 32.9 % (30-36); Mean Corpuscular Hemoglobin 29.5 PG (26-34); Mean Corpuscular Volume 89.7 fL (80-100); Monocytes Absolute Auto 1100 /uL (0-900); Neutrophils Absolute Auto 14700 /uL (1500-7000); Neutrophils Percent Auto 82.5 % (50-75); Platelet Count 399 X10^3/uL (150-400); Red Blood Cell Count 3.84 X10^6/uL (4.0-5.2); Red Cell Distribution Width 12.7 % (11.6-14.8); White Blood Cell Count 17.8 X10^3/uL (4.5-11.0)
[2020-03-09 06:28] LABS: Lithium 0.5 mmol/L (0.6-1.2)
[2020-03-09 06:30] LABS: Alanine Aminotransferase 41 IU/L (<35); Albumin 4.1 g/dL (3.5-5.0); Albumin Globulin Ratio 1.1 (1.0-2.8); Alkaline Phosphatase 234 U/L (38-126); Aspartate Aminotransferase 38 IU/L (14-36); BUN Creatinine Ratio 10.8 (6-22); Bilirubin Total 0.6 mg/dL (0.2-1.3); Blood Urea Nitrogen 9 mg/dL (7-17); Calcium 9.9 mg/dL (8.4-10.2); Carbon Dioxide 23 mmol/L (22-32); Chloride 113 mmol/L (98-107); Estimated Glomerular Filt Rate > 60.0 mL/min (>60); Globulin 3.6 g/dL (1.7-4.1); Glucose 112 mg/dL (80-110); HEMOLYSIS < 15 (0-50); Magnesium 2.6 mg/dL (1.6-2.3); Potassium 3.5 mmol/L (3.4-5.1); Sodium 141 mmol/L (137-145); Total Protein 7.7 g/dL (6.3-8.2)
[2020-03-09 08:00] VITALS: BP 110/75; PULSE 100; RESP 18; TEMP 37.3; O2SAT 100
[2020-03-09] MEDS: QUETIAPINE 25 MG TABLET PO (08:06)
[2020-03-09] MEDS: LORazepam 2 MG/ML INJ 1 MG IV (08:30)
[2020-03-09] MEDS: SODIUM CHLORIDE 0.9% FLUSH 10 ML IV (08:40)
--- NOTE | 2020-03-09 08:45 | P.DS_ITS ---
History of Present Illness History of Present Illness Date Patient Seen: 03/06/20 Chief complaint: Not herself Narrative: Written by Dr. Collins: Patient is a 69-year-old female with history of bipolar depression, hypertension, hypothyroidism brought to the emergency department due to extreme agitation. provides useful history of recent events. He states she was doing well with normal behavior until about 2 weeks ago where she began having some confusion, trouble walking and a noticeable tremor. The symptoms persisted but yesterday she started to become extremely agitated up to point where got worried and called medics to bring her to the emergency department today. is not aware that she overdosed on anything or 2 pills other than directed. He states she had a couple episodes of vomiting about 2 weeks ago. Over the last day or two her oral intake has really dropped off as well. She has not had fever, chills, cough, abdominal complaints. has not noticed her falling or hitting her head with the loss of balance. On ED evaluation, patient was noted extremely agitated and uncontrollable. She was given several doses of lorazepam. Her lithium level came back at 2.5 in range of lithium toxicity. states her last dose of lithium was last night. Other abnormal labs include WBC 82731, hemoglobin 11.9, platelets 526, creatinine 1.22. Her serum sodium is normal at 140. She has mildly elevated serum calcium of 10.6. Her TSH is normal. Lactate mildly elevated at 2.7. Urine tox screen positive for oxycodone, negative for acetaminophen and salicylates. Patient is not on Noah inhibitors and does not take NSAIDs to 's knowledge. Discharge Providers Provider Date of admission: 03/06/20 18:15 Discharge Date: 03/09/20 Consults: 03/06/20 17:52 Consult to [facility] [place] Guest Service Host Stat Comment: need placement [facility] Consult: Behavioral Health Assess 03/06/20 20:11 Consult to Dietitian, Adult Routine Comment: Reason For Exam: Weight management 03/08/20 09:56 Consult to Physician Routine Comment: Consulting Provider: Grabiel Alvarez Reason for consultation: [place] toxicity, Psychosis Has provider been notified: Yes Discharge provider: Bella Ramos DO Summary Hospital Course Discharge Diagnosis: 1. Acute on chronic lithium toxicity with dehydration, present on admission. Active. 2. Acute toxic encephalopathy, present on admission. Active. 3. Acute kidney injury, present on admission. Resolved. 4. Hypokalemia, not present on admission. Resolved. 5. Hepatic steatosis with mild transaminitis, likely chronic, present on admission. Stable. 6. Possible normocytic anemia, unknown chronicity, present on admission. Sta ble. 7. Hypothyroidism, chronic, present on admission. Stable. Hospital Course: Camilla Kim is a 69-year-old female with a past medical history significant for bipolar depression, hypertension, and hypothyroidism who presented to the ED via EMS due to confusion, severe agitation, tremors and trouble walking with a toxic lithium level. 1. Acute on chronic lithium toxicity with dehydration, present on admission. Active. -Patient is treated for bipolar depression with duloxetine, lithium, and quetiapine followed by [facility] for psychiatry. -Initial lithium level 2.5 which is in significantly high toxic range in background of chronic lithium use. [place] level trending down now 1.0. Continue to monitor lithium level every 6 hours until undetectable. -Symptoms of confusion, agitation, tremors, difficulty walking, nausea and v omiting all fit lithium toxicity. Symptoms appear to be improving and able to say yes and no responses. -EKG demonstrated sinus tachycardia, mild nonspecific ST changes, no QT prolongation. Repeat EKG today did not demonstrate any QTc prolongation at 416 ms. -Initial WBC 19 trended down to 14.9 and increased to 17.8 likely due to from lithium toxicity. Patient is afebrile and has no other signs of infection including: Negative urinalysis, negative chest x-ray, negative procalcitonin, negative CT brain without contrast, CT chest without contrast, CT abdomen and pelvis with contrast. Ordered IR guided lumbar puncture but was not able to be performed. -Continued IV fluid hydration and switched from normal saline 100 mL/hr to 0.45% normal saline at 150 mL/hr then D5 water at 125 mL/hr to avoid hypernatremia and provide free water and glucose source. Patient is not awake or alert enough to take in oral intake but ordered mechanical soft diet with 1:1 feeding ONLY if she awakens and is alert enough to eat (able to take in water and several bites of applesauce at one time). Continued to monitor blood glucose every 6 hours while NPO and will provide glucose source if becomes hypoglycemic. Hemoglobin A1c normal at 5.2%. -Continued to monitor sodium levels for diabetes insipidus, renal function and electrolytes closely and replete as necessary. -Consulted DEMAND PLANNING ANALYST as it is unclear if this is represents intentional or unintentional overdose. -Consulted Psychiatry, Dr. Alvarez, and recommends transfer to higher level of care for multidisciplinary approach including Psychiatry, Medicine, and possibly Neurology and Nephrology. Ordered Seroquel 25 mg twice daily as needed for agitation (if able to take in PO intake) and will try to avoid and ONLY give Ativan if absolutely necessary for agitation. -Discussed case with Dr. Mekhi Hong at [facility] and the patient was accepted for medical psychiatric admission awaiting bed. Pushed all imaging. Discussed case with Dr. Blount again this morning and transferred patient for higher level of care and multidisciplinary approach. 2. Acute toxic encephalopathy, present on admission. Active. -Patient remains delirious with confusion, mild tremor and restlessness but improving which is likely due to chronic lithium toxicity versus psychotic break. -Continued to treat lithium toxicity as above. 3. Acute kidney injury, present on admission. Resolved. -Initial creatinine 1.22. Baseline creatinine unknown. Creatinine trended down now 0.83 and stable. -Avoided nephrotoxic agents. -Continued IV fluid as above. -Continued monitor creatinine daily. 4. Hypokalemia, not present on admission. Resolved. -Initial potassium level 3.4. Potassium level trended down to 2.8 with aggressive IV fluid hydration. Total potassium chloride received 100 mEq. Potassium level now normal at 3.5. Continued to monitor potassium level and replete as necessary. Initial magnesium level normal at 2.0 and trended down to 1.6 with IV fluid hydration and received magnesium sulfate 2 g IV x1. Magnesium level now 2.6. Continued monitor magnesium level and replete if necessary. 5. Hepatic steatosis with mild transaminitis, likely chronic, present on admission. Stable. -CT abdomen and pelvis with contrast demonstrated hepatic steatosis. Gallbladder surgically absent. No biliary ductal dilatation. -Initial LFTs: Total bilirubin 0.7, AST 36, ALT 24, and alkaline phosphatase 267. Patient has developed mild transaminitis which is likely secondary to hepatic steatosis. LFTs improved: Total bilirubin 0.6, AST 38, ALT 41, alkaline phosphatase 234. 6. Possible normocytic anemia, unknown chronicity, present on admission. Stable. -Initial hemoglobin 11.9 and MCV 89.1 which is only minimally anemic without previous values for comparison. Hemoglobin trending down now 10.3 likely due to dilution from aggressive IV fluid hydration and is trending back up now 11.3. Patient also has persistent leukocytosis and thrombocytosis (now resolved) which are consistent with dehydration and lithium toxicity and improving with treatment with IV fluid hydration. -Iron profile within normal limits. 7. Hypothyroidism, chronic, present on admission. Stable. -TSH normal at 0.522. -Continued IV equivalent of home levothyroxine 75 mcg daily with levothyroxine 37.5 mcg IV daily. Exam Vital Signs (past 8 hours): - 03/09/20 06:00 03/09/20 08:00 Temperature 98.3 F 99.1 F Pulse Rate 100 H 100 H Respiratory Rate 18 18 Blood Pressure 135/81 110/75 Pulse Oximetry 100 100 Oxygen Delivery Method Room Air Oxygen Flow Rate 0 Narrative Exam Narrative: General: Middle-aged female lying in bed sleeping and appears comfortable. She is more responsive this morning and able to say yes and no answers. She continues to be delirious, mildly restless and tremulous. HEENT: Normocephalic, atraumatic. External ears without defect. Pupils dilated, equal, round, and reactive to light. Anicteric sclerae, moist conjunctivae, and no lid lag. Neck: Supple with full range of motion. No jugular venous distension. No lymphadenopathy or thyromegaly. Cardiovascular: Regular rate and rhythm without murmurs, rubs, or gallops appreciated. Pulmonary: Clear to auscultation bilaterally without crackles, wheezes, or rhonchi. Normal respiratory effort with no use of accessory muscles. Abdomen: Soft, bowel sounds present, appears nontender and nondistended. No hepatosplenomegaly or masses appreciated. Extremities: No clubbing, cyanosis, or edema. Skin: Normal temperature, turgor, and texture; no ulcers, or subcutaneous nodules appreciated. Keratotic rash around bilateral lower extremities. Psychiatric: Delirious. Objective Labs Result Diagrams: 03/09/20 06:01 03/09/20 06:01 Labs: Laboratory Results - last 24 hr 03/08/20 03/08/20 03/08/20 09:00 13:15 19:37 WBC RBC Hgb Hct MCV MCH MCHC RDW Plt Count Neut % (Auto) Lymph % (Auto) [place] % (Auto) Eos % (Auto) Baso % (Auto) Neut # (Auto) Lymph # (Auto) [place] # (Auto) Eos # (Auto) Baso # (Auto) Sodium Potassium Chloride Carbon Dioxide BUN Creatinine Estimated GFR BUN/Creatinine Ratio Glucose Calcium Magnesium Total Bilirubin AST ALT Alkaline Phosphatase Total Protein Albumin Globulin Albumin/Globulin Ratio Procalcitonin Urine Color Yellow Urine Appearance Clear Urine pH 7.0 Ur Specific [place] <=1.005 Urine Protein Negative Urine Glucose (UA) Negative Urine Ketones 1+ H Urine Occult Blood Trace-lysed Urine Nitrate Negative Urine Bilirubin Negative Urine Urobilinogen 0.2 Ur Leukocyte Esterase Negative Urine RBC 0-1/hpf Urine WBC None seen Urine Bacteria None seen Ur Culture Indicated? Cult not indicated [place] 0.8 0.6 03/08/20 03/09/20 03/09/20 19:37 06:01 06:01 WBC 17.8 H RBC 3.84 L Hgb 11.3 L Hct 34.5 L MCV 89.7 D MCH 29.5 MCHC 32.9 RDW 12.7 Plt Count 399 Neut % (Auto) 82.5 H Lymph % (Auto) 10.4 L [place] % (Auto) 6.0 Eos % (Auto) 0.3 L Baso % (Auto) 0.8 Neut # (Auto) 35251 H Lymph # (Auto) 1800 [place] # (Auto) 1100 H Eos # (Auto) 100 Baso # (Auto) 100 Sodium 141 Potassium 3.1 L Chloride 110 H Carbon Dioxide 20 L BUN 11 Creatinine 0.80 Estimated GFR > 60.0 BUN/Creatinine Ratio 13.8 Glucose 131 H Calcium 10.2 Magnesium 1.6 Total Bilirubin AST ALT Alkaline Phosphatase Total Protein Albumin Globulin Albumin/Globulin Ratio Procalcitonin 0.10 Urine Color Urine Appearance Urine pH Ur Specific [place] Urine Protein Urine Glucose (UA) Urine Ketones Urine Occult Blood Urine Nitrate Urine Bilirubin Urine Urobilinogen Ur Leukocyte Esterase Urine RBC Urine WBC Urine Bacteria Ur Culture Indicated? [place] 03/09/20 03/09/20 06:01 06:01 WBC RBC Hgb Hct MCV MCH MCHC RDW Plt Count Neut % (Auto) Lymph % (Auto) [place] % (Auto) Eos % (Auto) Baso % (Auto) Neut # (Auto) Lymph # (Auto) [place] # (Auto) Eos # (Auto) Baso # (Auto) Sodium 141 Potassium 3.5 Chloride 113 H Carbon Dioxide 23 BUN 9 Creatinine 0.83 Estimated GFR > 60.0 BUN/Creatinine Ratio 10.8 Glucose 112 H Calcium 9.9 Magnesium 2.6 H Total Bilirubin 0.6 AST 38 H ALT 41 H Alkaline Phosphatase 234 H Total Protein 7.7 Albumin 4.1 Globulin 3.6 Albumin/Globulin Ratio 1.1 Procalcitonin Urine Color Urine Appearance Urine pH Ur Specific [place] Urine Protein Urine Glucose (UA) Urine Ketones Urine Occult Blood Urine Nitrate Urine Bilirubin Urine Urobilinogen Ur Leukocyte Esterase Urine RBC Urine WBC Urine Bacteria Ur Culture Indicated? [place] 0.5 L Discharge Plan Discharge Plan Disposition: [facility]
--- NOTE | 2020-03-09 09:17 | PC.NURSE ---
Assess- Patient is alert but disoriented x3. She pulled her iv out this am . New one started in hand. Serouquel given po and iv ativan before being transferred to [place]. Patient 2 person max assist to get to the commode. She often cries out loudly and sits up in bed. in room, he is quiet. Patient just transferred to [place] now. Report will be called.
[2020-03-09] MEDS: LORazepam 2 MG/ML INJ IV (09:50)
--- NOTE | 2020-03-09 10:03 | PC.NURSE ---
CALLED URGENTLY BY D/C NURSE FROM THIS PT - WITH REPORT OF PT BP 160/100 AND HR 130 WHILE IN TRANFER RIG OUT IN AMBULANCE BAY- PT HAD BEEN ORDERED 2MG IV STAT TO ALLOW PHYSICAL TRANSPORT TO [facility]- NO ACLS BUT S TRANSPORT HAD BEEN ARRANGED AND THEY ARE NOT ABLE TO ADMINSTER MEDICATIONS- RECEIVED VERBAL ORDER FROM D/C MD YESY CUMMINS AND MEDICATED AT THIS TIME- DISCHARGED FROM [facility] AT THIS TIME
== END 2020-03-09 09:55 | disposition short-term general hospital (02) | DRG 92 ==
LOC: ED 17:12 → AC 18:16
PROVIDERS: Internal Medicine; Nurse Practitioner Family; Admitting Provider Internal Medicine; Emergency Provider Emergency Medicine; Referring Provider Emergency Medicine; Visit Provider Internal Medicine
DX: G92 Toxic encephalopathy (principal); N17.9 Acute kidney failure, unspecified; F31.30 Bipolar disorder, current episode depressed, mild or moderate severity, unspecified; T43.595A Adverse effect of other antipsychotics and neuroleptics, initial encounter; I10 Essential (primary) hypertension; E03.9 Hypothyroidism, unspecified; R00.0 Tachycardia, unspecified; D64.9 Anemia, unspecified; E86.0 Dehydration; E87.6 Hypokalemia; K76.0 Fatty (change of) liver, not elsewhere classified; R74.01 Elevation of levels of liver transaminase levels
CPT/HCPCS: 36415; 70450; 71045; 71260; 74177; 80048; 80053; 80178; 80305; 80320; 80329; 81001; 82728; 82962; 83036; 83540; 83550; 83605; 83735; 84145; 84443; 85025; 87040; 87086; 87635; 90792; 93005; 96361; 96374; 96376; 99284; G0480; J1650; J2060; J3480; J7050; Q9967

== ENCOUNTER 2021-07-13 02:21 | Inpatient (IN) | payer MEDICARE, SELFPAY ==
[2020-03-06 20:04] VITALS: BMI 23.5
[2021-07-13] VITALS (9 sets, daily range): BP systolic 142–188; BP diastolic 64–83; PULSE 91–105; RESP 18–22; TEMP 36.1–36.9; O2SAT 94–99; BMI 27.4; BMI 28.6
[2021-07-13 02:52] LABS: Add Manual Diff / Slide Review NO; Basophils Absolute Auto 100 /uL (0-100); Basophils Percent Auto 0.5 % (0-2); Eosinophils Absolute Auto 0 /uL (0-450); Hematocrit 35.4 % (36-46); Hemoglobin 12.2 g/dL (12.0-16.0); Lymphocytes Absolute Auto 1800 /uL (1100-4500); Mean Corpuscular HGB Conc 34.4 % (30-36); Mean Corpuscular Hemoglobin 29.2 PG (26-34); Monocytes Absolute Auto 800 /uL (0-900); Monocytes Percent Auto 3.6 % (3-14); Neutrophils Absolute Auto 19800 /uL (1500-7000); Neutrophils Percent Auto 87.9 % (50-75); Platelet Count 478 X10^3/uL (150-400); Red Blood Cell Count 4.17 X10^6/uL (4.0-5.2); Red Cell Distribution Width 12.6 % (11.6-14.8); White Blood Cell Count 22.5 X10^3/uL (4.5-11.0)
[2021-07-13] MEDS: SODIUM CHLORIDE 0.9% 1,000 ML 1000 ML IV (02:54)
[2021-07-13] MEDS: ONDANSETRON 4 MG/2 ML INJ IV (02:54)
[2021-07-13 03:00] LABS: Alanine Aminotransferase 25 IU/L (<35); Albumin 5.4 g/dL (3.5-5.0); Albumin Globulin Ratio 1.4 (1.0-2.8); Alkaline Phosphatase 137 U/L (38-126); Aspartate Aminotransferase 46 IU/L (14-36); Bilirubin Total 0.6 mg/dL (0.2-1.3); Blood Urea Nitrogen 15 mg/dL (7-17); Calcium 9.6 mg/dL (8.4-10.2); Carbon Dioxide 23 mmol/L (22-32); Chloride 86 mmol/L (98-107); Estimated Glomerular Filt Rate 58.7 mL/min (>60); Globulin 3.8 g/dL (1.7-4.1); Glucose 131 mg/dL (80-110); HEMOLYSIS 32 (0-50); Potassium 4.3 mmol/L (3.4-5.1); Sodium 121 mmol/L (137-145); Total Protein 9.2 g/dL (6.3-8.2)
[2021-07-13 03:01] LABS: Lithium < 0.2 mmol/L (0.6-1.2)
[2021-07-13 03:03] LABS: Bacteria Urine Occasional (0-1); RBC Urine 0-1/HPF (0-5/HPF); Squamous Epithelial Cell Urine 0-1 /HPF (0-5/HPF); WBC Urine 0-1/HPF (0-5/HPF)
--- NOTE | 2021-07-13 03:32 | ED.NAVMDI ---
HPI - Nausea/Vomiting/Diarrhea General Chief complaint: Nausea/Vomiting/Diarrhea Stated complaint: VOMITING, HX LOW SODIUM Time Seen by Provider: 07/13/21 02:26 Source: patient Mode of arrival: Wheelchair History of Present Illness HPI Narrative: 71F nonsmoker with history of aerophagia, HTN, hypothyroid and bipolar disorder presents with her in the chief complaint of persistent nausea and vomiting over the past 12 hours or so. She states that she was in her normal state of health and denies any change in medications or diet. She states that she has had this happen a few times before and has been diagnosed with low sodium as well. She states that she becomes intensely nauseated if she sits still and this is typical of her aerophagia diagnosis. She has not been able to keep any food or drink down head and is becoming fatigued and a bit lightheaded. She denies any numbness, tingling, blurred vision or trouble with speech. She has no chest pain or shortness of breath. She has a PICC confused and forgetful and does not remember the last time this happened or the last time she was admitted to the hospital. She denies any runny nose, sore throat or cough. She has had no fever or chills. She denies any dysuria, frequency or urgency. Related Data Home Medications Medication Instructions Recorded Confirmed amlodipine 10 mg tablet 10 mg PO DAILY 03/06/20 03/06/20 duloxetine 60 mg capsule,delayed 60 mg PO DAILY 03/06/20 03/06/20 release sprinkle levothyroxine 75 mcg tablet 75 mcg PO DAILY 03/06/20 03/06/20 lithium carbonate 600 mg capsule 600 mg PO BEDTIME 03/06/20 03/06/20 quetiapine 50 mg tablet 50 mg PO BEDTIME 03/06/20 03/06/20 Allergies Allergy/AdvReac Type Severity Reaction Status Date / Time Sulfa (Sulfonamide Allergy Unknown Verified 03/06/20 16:27 Antibiotics) desipramine Allergy Rash Verified 03/07/20 11:24 Review of Systems Review of Systems Narrative: GENERAL: Denies chills, fatigue, malaise, fever, sweats. HEENT: See HPI RESPIRATORY: Denies dyspnea, cough, wheezing, hemoptysis, sputum. CARDIOVASCULAR: Denies chest pain, palpitations, orthopnea, edema, GASTROINTESTINAL: See HPI : Denies dysuria, frequency, incontinence, hematuria, urinary retention. MUSCULOSKELETAL: denies weakness, joint pain, or bony pain SKIN: Denies rash, skin lesions, or other NEUROLOGIC: Denies weakness, headache, numbness, change in speech, confusion, seizures, incoordination. PSYCHIATRIC: No concerning psychosocial issues. 12 point review of systems is negative except for those stated above Patient History Medical History (Updated 07/13/21 @ 04:47 by Rohit Melendez DO) Bipolar disorder Eczema Hypertension Hypothyroidism (acquired) Surgical History Hx of cholecystectomy Social History household members: spouse, family and children Smoking Status: Never smoker alcohol intake: never Smoking Status: Never smoker Substance Use Type: does not use Exam Narrative Exam Narrative: GENERAL: 71 year old patient appears stated age. Well-developed patient, in mild distress. HEAD: Atraumatic. Normocephalic. EYES: Pupils equal round and reactive. Extraocular motions intact. No scleral icterus. No injection or drainage. ENT: Nose without bleeding, purulent drainage. Throat without erythema, tonsillar hypertrophy or exudate. Airway patent. NECK: Trachea midline. Non tender CARDIOVASCULAR: Regular rate and rhythm without murmurs, gallops, or rubs. RESPIRATORY: Clear to auscultation. Breath sounds equal bilaterally. No wheezes, rales, or rhonchi. GASTROINTESTINAL: Abdomen soft, non-tender, nondistended. EXTREMITIES: No edema or joint tenderness. BACK: Nontender without deformity or crepitance. No flank tenderness. NEURO: AOx3. SKIN: No rash or erythema of visible areas Initial Vital Signs Initial Vital Signs: Vital Signs Temperature 98.5 F 07/13/21 02:37 Pulse Rate 105 H 07/13/21 02:37 Respiratory Rate 22 07/13/21 02:37 Blood Pressure 188/74 H 07/13/21 02:37 Pulse Oximetry 94 07/13/21 02:37 Course Orders Ordered: ED Orders 07/13/21 02:41 Complete Blood Count AUTO DIFF Stat Comprehensive Metabolic Panel Stat Lactate (Lactic Acid) Stat [place] Stat 07/13/21 02:50 Urine Culture Stat Urine Microscopic Stat 07/13/21 03:33 COVID19 - ADMIT ([employer] swab/PCR) Stat 07/13/21 03:39 XR acute abdomen series Stat Blood Culture Stat 07/13/21 04:30 Osmolality Urine Stat Osmolality, Serum Stat Sodium Chloride (Normal Saline 0.9%) 2,041.17 mls @ 680.39 mls/hr 30 ml/kg infuse over 3 hr (2041.17 ml) IV NOW ONE Stop: 07/13/21 07:29 Discontinued Medications Sodium Chloride (Normal Saline 0.9%) 1,000 mls @ 1,000 mls/hr IV BOLUS ONE Stop: 07/13/21 03:34 Last Admin: 07/13/21 02:54 Dose: 1,000 mls/hr Documented by: BRENT Ceftriaxone Sodium 2,000 mg/ (Sodium Chloride) 100 mls @ 200 mls/hr IV NOW ONE Stop: 07/13/21 04:31 Last Admin: 07/13/21 04:37 Dose: 200 mls/hr Documented by: Ketorolac Tromethamine (Ketorolac 30 Mg/Ml Vial) 15 mg IV NOW ONE Stop: 07/13/21 03:38 Last Admin: 07/13/21 03:45 Dose: 15 mg Documented by: Ondansetron HCl (Ondansetron 4 Mg/2 Ml Inj) 4 mg IV NOW ONE Stop: 07/13/21 02:36 Last Admin: 07/13/21 02:54 Dose: 4 mg Documented by: BRENT Pantoprazole Sodium (Pantoprazole 40 Mg Vial) 40 mg IV NOW ONE Stop: 07/13/21 03:38 Last Admin: 07/13/21 03:45 Dose: 40 mg Documented by: Vital Signs Vital signs: Vital Signs - 8 hr 07/13/21 02:37 Temperature 98.5 F Pulse Rate 105 H Respiratory Rate 22 Blood Pressure 188/74 H Pulse Oximetry 94 MDM - Nausea/Vomiting/Diarrhea Lab Data Result diagrams: 07/13/21 02:41 07/13/21 02:41 Labs: Lab Results 07/13/21 07/13/21 07/13/21 Range/Units 02:41 02:41 02:41 WBC 22.5 H (4.5-11.0) X10^3/uL RBC 4.17 (4.0-5.2) X10^6/uL Hgb 12.2 (12.0-16.0) g/dL Hct 35.4 L (36-46) % MCV 85.0 (80-100) fL MCH 29.2 (26-34) PG MCHC 34.4 (30-36) % RDW 12.6 (11.6-14.8) % Plt Count 478 H (150-400) X10^3/uL Neut % (Auto) 87.9 H (50-75) % Lymph % (Auto) 8.0 L (25-40) % Coffee % (Auto) 3.6 (3-14) % Eos % (Auto) 0.0 L (2-4) % Baso % (Auto) 0.5 (0-2) % Neut # (Auto) 67264 H (2788-0626) /uL Lymph # (Auto) 1800 (8945-6580) /uL Coffee # (Auto) 800 (0-900) /uL Eos # (Auto) 0 (0-450) /uL Baso # (Auto) 100 (0-100) /uL Sodium 121 L (137-145) mmol/L Potassium 4.3 (3.4-5.1) mmol/L Chloride 86 L (98-107) mmol/L Carbon Dioxide 23 (22-32) mmol/L BUN 15 (7-17) mg/dL Creatinine 0.94 (0.52-1.04) mg/dL Estimated GFR 58.7 L (>60) mL/min BUN/Creatinine Ratio 16.0 (6-22) Glucose 131 H (80-110) mg/dL Lactate (0.7-2.1) mmol/L Calcium 9.6 (8.4-10.2) mg/dL Total Bilirubin 0.6 (0.2-1.3) mg/dL AST 46 H (14-36) IU/L ALT 25 (<35) IU/L Alkaline Phosphatase 137 H (38-126) U/L Total Protein 9.2 H (6.3-8.2) g/dL Albumin 5.4 H (3.5-5.0) g/dL Globulin 3.8 (1.7-4.1) g/dL Albumin/Globulin Ratio 1.4 (1.0-2.8) Urine RBC (0-5/HPF) Urine WBC (0-5/HPF) Ur Squamous Epith Cells (0-5/HPF) Urine Bacteria (None) Ur Culture Indicated? [place] < 0.2 L (0.6-1.2) mmol/L SARS-CoV-2 (PCR) (Negative) 07/13/21 07/13/21 07/13/21 Range/Units 02:41 02:50 03:33 WBC (4.5-11.0) X10^3/uL RBC (4.0-5.2) X10^6/uL Hgb (12.0-16.0) g/dL Hct (36-46) % MCV (80-100) fL MCH (26-34) PG MCHC (30-36) % RDW (11.6-14.8) % Plt Count (150-400) X10^3/uL Neut % (Auto) (50-75) % Lymph % (Auto) (25-40) % Coffee % (Auto) (3-14) % Eos % (Auto) (2-4) % Baso % (Auto) (0-2) % Neut # (Auto) (7206-8310) /uL Lymph # (Auto) (9157-8615) /uL Coffee # (Auto) (0-900) /uL Eos # (Auto) (0-450) /uL Baso # (Auto) (0-100) /uL Sodium (137-145) mmol/L Potassium (3.4-5.1) mmol/L Chloride (98-107) mmol/L Carbon Dioxide (22-32) mmol/L BUN (7-17) mg/dL Creatinine (0.52-1.04) mg/dL Estimated GFR (>60) mL/min BUN/Creatinine Ratio (6-22) Glucose (80-110) mg/dL Lactate 3.2 H (0.7-2.1) mmol/L Calcium (8.4-10.2) mg/dL Total Bilirubin (0.2-1.3) mg/dL AST (14-36) IU/L ALT (<35) IU/L Alkaline Phosphatase (38-126) U/L Total Protein (6.3-8.2) g/dL Albumin (3.5-5.0) g/dL Globulin (1.7-4.1) g/dL Albumin/Globulin Ratio (1.0-2.8) Urine RBC 0-1/hpf (0-5/HPF) Urine WBC 0-1/hpf (0-5/HPF) Ur Squamous Epith Cells 0-1 /hpf (0-5/HPF) Urine Bacteria Occasional (0-1) (None) Ur Culture Indicated? Culture not indicate [place] (0.6-1.2) mmol/L SARS-CoV-2 (PCR) Negative (Negative) Urine Dip Bedside Urine Glucose Negative Bedside Urine Bilirubin - Negative Bedside Urine Ketone - Negative Urine Specific [place] 1.015 Bedside Urine Occult Blood +/- Bedside Urine pH 6.0 Bedside Urine Protein - Negative Bedside Urine Urobilinogen - Negative Bedside Urine Nitrite - Negative Bedside Urine Leukocytes - Negative Esterase MDM Narrative Medical decision making narrative: Patient with nausea and vomiting and some generalized weakness also complains of being a bit confused. She has an impressive hyponatremia and appears slightly hypovolemic with moist mucous membranes, but poor skin turgor. She has no fever or chills, nor any complaints to make me suspect underlying infection, but she does have an elevated WBC and lactate hence my decision to administer ABX and fluids at 30mL/kg after blood cultures were obtained. Patient requires hospitalization for ongoing evaluation and stabilization of her condition. Discharge Plan Departure Patient Disposition: Admitted As Inpatient Clinical Impression: Acute vomiting, Acute hyponatremia Admit Date/Time: 07/13/21 04:35 Admit Provider: Rod Flores
--- NOTE | 2021-07-13 03:39 | DI.RAD.S_ITS ---
PROCEDURE: XR ACUTE ABDOMEN SERIES INDICATIONS: Nausea/vomiting TECHNIQUE: One view chest and two views of the abdomen were acquired. COMPARISON: None. FINDINGS: Surgical changes and devices: Cholecystectomy clips. Dropped clip in the lower pelvis. Chest: Lungs are clear. Lungs hyperinflated suggesting COPD. Heart size is normal. No pleural effusions. No pneumoperitoneum. Abdomen: Bowel gas pattern is normal. Large amount of stool in the right colon. No suspicious calcifications. Visualized solid organ contours appear normal. Bones: No suspicious bony lesions. IMPRESSION: Large amount of stool in the right colon. No evidence of bowel obstruction. Dictated by: Isabel Franco MD, PhD on 07/13/2021 at 7:41 Approved by: Isabel Franco MD, PhD on 07/13/2021 at 7:42
[2021-07-13] MEDS: PANTOPRAZOLE 40 MG VIAL IV ×2 (03:45→08:42)
[2021-07-13] MEDS: KETOROLAC 30 MG/ML VIAL 15 MG IV (03:45)
[2021-07-13 03:53] LABS: Lactate (Lactic Acid) 3.2 mmol/L (0.7-2.1)
[2021-07-13 04:34] LABS: COVID19 - ADMIT (NP swab/PCR) Negative (Negative)
[2021-07-13] MEDS: cefTRIAXone 2,000 MG in SODIUM CHLORIDE 0.9% 100 ML 200 ML IV (04:37)
[2021-07-13] MEDS: SODIUM CHLORIDE 0.9% 2,041.17 ML 680.39 ML IV (05:08)
--- NOTE | 2021-07-13 05:37 | P.HP_ITS ---
History of Present Illness History of Present Illness Date Patient Seen: 07/13/21 Time Patient Seen: 05:00 Chief complaint: VOMITING, HX LOW SODIUM Narrative: Ms. Kim is a 69W with PMH anxiety, depression, HTN, hypothyroidism who comes in to the hospital with nausea and vomiting. She says she has had issues multiple times in the past years with nausea and hyponatremia. She has been diagnosed with stomach ulcers years ago, but last EGD was 6-7 years ago. She s tates she was in her normal state of health until earlier tonight she started having frequent vomiting and nausea. She had no abdominal pain. She had constipation and vomiting. She has no fevers/chills. She had no cough or shortness of breath. She says she feels slightly confused, and her spouse agrees that she is slightly confused. She does not feel particularly dehydrated at the moment. She is complaining of significant chronic right leg pain from arthritis and bursitis. She has started any new medications. In the ED workup was done, vitals notable for temp 98.5, hr 105, rr 22, bp 188/74, o2 sat 94% on RA. Labs notable for WBC 22.5, hgb 12.2, plts 478. Na 121, creatinine 0.94. Lactate 3.2. UA negative. Chest xray and abdominal xray showed no acute process on my view with final report pending. Family history: Mother with CAD Patient History Medical History Bipolar disorder Eczema Hypertension Hypothyroidism (acquired) Surgical History Hx of cholecystectomy Family & Social History Social History: household members spouse,family,children Safety & Behavioral: Feels Safe in Current Yes Environment Tobacco & Substance use: Smoking Status Never smoker alcohol intake never Substance Use Type does not use Meds Home Medications and Allergies Home Medications Medication Instructions Recorded Confirmed Type amlodipine 10 mg tablet 10 mg PO DAILY 03/06/20 03/06/20 History duloxetine 60 mg capsule,delayed 60 mg PO DAILY 03/06/20 03/06/20 History release sprinkle levothyroxine 75 mcg tablet 75 mcg PO DAILY 03/06/20 03/06/20 History quetiapine 50 mg tablet 50 mg PO BEDTIME 03/06/20 03/06/20 History Allergies Allergy/AdvReac Type Severity Reaction Status Date / Time Sulfa (Sulfonamide Allergy Unknown Verified 03/06/20 16:27 Antibiotics) desipramine Allergy Rash Verified 03/07/20 11:24 Review of Systems Review of Systems Narrative: 14 systems reviewed and negative aside from what is noted in HPI Exam Vital Signs (past 8 hours): - 07/13/21 02:37 07/13/21 04:09 Temperature 98.5 F Pulse Rate 105 H 98 H Respiratory Rate 22 Blood Pressure 188/74 H 142/70 H Pulse Oximetry 94 96 Oxygen Delivery Method Room Air Narrative Exam Narrative: GEN: no acute distress HEENT: moist mucous membranes, PERRL NECK: trachea midline, no JVD CV: tachycardic, no murmurs PULM: clear bilaterally, no wheezes, rhonchi, rales ABD: soft, nontender, nondistended, normal bowel sounds EXT: warm and well perfused, mild edema no right leg SKIN: warm, no rashes noted NEURO: no focal deficits, moving all extremities PSYCH: cooperative, pleasant, anxious Objective Labs Result Diagrams: 07/13/21 02:41 07/13/21 02:41 Labs: Laboratory Results - last 24 hr 07/13/21 07/13/21 07/13/21 02:41 02:41 02:41 WBC 22.5 H RBC 4.17 Hgb 12.2 Hct 35.4 L MCV 85.0 MCH 29.2 MCHC 34.4 RDW 12.6 Plt Count 478 H Neut % (Auto) 87.9 H Lymph % (Auto) 8.[address] [place] % (Auto) 3.6 Eos % (Auto) 0.0 L Baso % (Auto) 0.5 Neut # (Auto) 93885 H Lymph # (Auto) 1800 [place] # (Auto) 800 Eos # (Auto) 0 Baso # (Auto) 100 Sodium 121 L Potassium 4.3 Chloride 86 L Carbon Dioxide 23 BUN 15 Creatinine 0.94 Estimated GFR 58.7 L BUN/Creatinine Ratio 16.0 Glucose 131 H Lactate Calcium 9.6 Total Bilirubin 0.6 AST 46 H ALT 25 Alkaline Phosphatase 137 H Total Protein 9.2 H Albumin 5.4 H Globulin 3.8 Albumin/Globulin Ratio 1.4 Urine RBC Urine WBC Ur Squamous Epith Cells Urine Bacteria Ur Culture Indicated? Tool < 0.2 L SARS-CoV-2 (PCR) 07/13/21 07/13/21 07/13/21 02:41 02:50 03:33 WBC RBC Hgb Hct MCV MCH MCHC RDW Plt Count Neut % (Auto) Lymph % (Auto) [place] % (Auto) Eos % (Auto) Baso % (Auto) Neut # (Auto) Lymph # (Auto) [place] # (Auto) Eos # (Auto) Baso # (Auto) Sodium Potassium Chloride Carbon Dioxide BUN Creatinine Estimated GFR BUN/Creatinine Ratio Glucose Lactate 3.2 H Calcium Total Bilirubin AST ALT Alkaline Phosphatase Total Protein Albumin Globulin Albumin/Globulin Ratio Urine RBC 0-1/hpf Urine WBC 0-1/hpf Ur Squamous Epith Cells 0-1 /hpf Urine Bacteria Occasional (0-1) Ur Culture Indicated? Culture not indicate Tool SARS-CoV-2 (PCR) Negative Assessment & Plan Assessment & Plan narrative: Ms. Kim is a 71W with PMH HTN, hypothyroid, chronic pain who comes in to the hospital with vomiting and found to have symptomatic hyponatremia. 1. Symptomatic hyponatremia and vomiting, acute -etiology likely hypovolemia from acute vomiting -did get IV resuscitated in ED for possible concern for infectious cause -has had peptic ulcer disease in past, will order PPI, and symptomatic treatment with zofran vs possible gastroenteritis -other etiology could be SIADH as clinically patient is not significantly hypovolemic possibly caused by pain, thyroid disease, or medications -waiting for spouse to bring in full med list to see if one may be an etiology ---ordered serum, urine osms -repeat sodium in AM, may need to adjust fluids based on sodium result 2. SIRS positive, with elevated lactate -patient with WBC 22, lactate of 3.2, tachycardic/tachypneic -no clear source of infection based on symptoms -chest xray with no pneumonia, UA negative -patient already had cholecystectomy in past -will order CT abd/pelvis to ensure no infectinon -however doubt infectious etiology as leukocytosis appears chronic and may be a stress response -did get IV fluids and antibiotics in ED, for now continue ceftriaxone, but may be able to dc after results of CT 3. Hepatic steatosis with mild transaminitis, chronic -chronic, doubt the cause of symptoms -no need to trend further 4. Hypothyroidism -continue synthroid -check TSH 5. Depression -patient not completely sure doses of medications -will resume once spouse brings in med list CODE: Full Proxy: Britton Kim, spouse I have utilized all available resources to reconcile the patient's home medications. Time Spent With Patient Critical Care time: I spent a total of [] minutes of critical care time on this patient's care today; this time is exclusive of procedural time. Quality MIPS - Admit I confirm the patient?s Advance Care Plan is present, Code status is documented, Surrogate decision maker is in patient?s record [If Yes, STOP here]: Yes
[2021-07-13 05:45] LABS: Reflexed Lactate in 2 Hours Y
[2021-07-13 06:00] LABS: Lactate 2HR (Lactic Acid Rflx) 2.1 mmol/L (0.7-2.1)
--- NOTE | 2021-07-13 06:14 | DI.CT.S_ITS ---
PROCEDURE: CT ABDOMEN PELVIS W CON INDICATIONS: vomiting TECHNIQUE: After the administration of oral and intravenous contrast, axial sections were acquired from the lung bases to the pubic symphysis. Coronal and sagittal reformats were performed. For radiation dose reduction, the following was used: automated exposure control, adjustment of mA and/or kV according to patient size. COMPARISON:[facility], CT, CT CHEST ABD PEL W CON, 03/08/2020, 8:22. FINDINGS: Image quality: Excellent. Lung bases: Unremarkable. Heart: No significant findings. ABDOMEN: Liver: Very mild hepatic steatosis. Improved since the previous study. Stable benign-appearing low-density lesions consistent with cysts versus hemangiomata. Gallbladder: Surgically absent. Biliary ducts: Unremarkable. Pancreas: Unremarkable. Spleen: Unremarkable. Adrenal Glands: Unremarkable. Kidneys and Ureters: Unremarkable. Stomach and Bowel: Small hiatal hernia. Mild diverticulosis without evidence of diverticulitis. Peritoneum: No abnormal intraperitoneal fluid. No free air. Ventral Wall: No hernia. Abdominal Nodes: No retroperitoneal or mesenteric adenopathy by size criteria. Vessels: Aorta and inferior vena cava are normal in size. Atherosclerotic aortic and bilateral iliac plaque. PELVIS: Pelvic Organs: Unremarkable. Bladder: Unremarkable. Pelvic Nodes: No enlarged lymph nodes. Miscellaneous: No inguinal hernias are seen. Bones: Unremarkable. IMPRESSION: 1. No evidence of acute abdominal process. 2. Hiatal hernia. 3. Mild diverticulosis. 4. Mild hepatic steatosis. Dictated by: Moises Addison M.D. on 07/13/2021 at 8:12 Approved by: Moises Addison M.D. on 07/13/2021 at 8:18
--- NOTE | 2021-07-13 06:28 | PC.ADMIT ---
Patient admitted to room 211 from ER. Arrived per stretcher but ambulated into room/bathroom with 1 assist. Came to ER due to nausea/vomiting x 12 hours and found to be hyponatremic. Is alert and oriented but slightly anxious. Has minor hearing loss bilateral ears. Wears full lower denture and partial upper denture. Breath sounds CTA with RA sat of 99%; on continuous oximetry. HRR but tachy at 102 bpm with elevated BP of 183/81. Was medicated in ER with Zofran and states she is only feeling slightly nauseated at present time. Denies having had any diarrhea. Denies dysuria or urgency but does have some urinary frequency due to IVF infusing as bolus as per sepsis protocol. BT hypoactive; abdomen is soft. Able to move self in bed. Up to bathroom with 1 assist. States she sometimes uses cane at home. Has bursitis/arthritis in bilateral knees and states pain is currently 4/10 but improved after receiving Toradol in ER. Reports no falls in past 3 months. Fall risk score does come out high and bed alarm is activated. Oriented to bed controls and call light. Provided phone and menu and instructed on how to order breakfast. Spouse to bring in home med list as neither he nor patient are certain regarding doses of medications. [address] Admission Note: The patient,Camilla Kim,71 y/o, was given written information regarding hospital policies, unit procedures and contact persons. Patient's smoking status: Never smoker. Vital Signs - 8 hr 07/13/21 02:37 07/13/21 04:09 07/13/21 05:30 Temperature 98.5 F Pulse Rate 105 H 98 H 91 H Respiratory Rate 22 18 Blood Pressure 188/74 H 142/70 H 147/71 H Pulse Oximetry 94 96 99 07/13/21 05:44 Temperature 97.8 F Pulse Rate 102 H Respiratory Rate 18 Blood Pressure 183/81 H Pulse Oximetry 99
[2021-07-13 07:01] LABS: TSH w/ Reflex to FT4 0.96 uIU/mL (0.47-4.68)
[2021-07-13] MEDS: SODIUM CHLORIDE 0.9% FLUSH 10 ML IV ×2 (08:37→20:51)
[2021-07-13] MEDS: ENOXAPARIN 40 MG/0.4 ML SYRINGE SUBCUT (08:42)
--- NOTE | 2021-07-13 08:59 | PC.NURSE ---
Day shift: Off unit for imaging at approx 0900.
[2021-07-13] MEDS: DULOXETINE 30 MG CAPSULE 60 MG PO (09:31)
[2021-07-13] MEDS: QUETIAPINE 25 MG TABLET 50 MG PO (09:32)
[2021-07-13] MEDS: AMLODIPINE 5 MG TABLET 10 MG PO (09:32)
[2021-07-13] MEDS: LEVOTHYROXINE 75 MCG TABLET 50 MCG PO (09:35)
[2021-07-13 11:20] LABS: Add Manual Diff / Slide Review NO; Basophils Absolute Auto 100 /uL (0-100); Basophils Percent Auto 0.4 % (0-2); Eosinophils Absolute Auto 0 /uL (0-450); Eosinophils Percent Auto 0.1 % (2-4); Hematocrit 32.5 % (36-46); Hemoglobin 10.9 g/dL (12.0-16.0); Lymphocytes Absolute Auto 1700 /uL (1100-4500); Lymphocytes Percent Auto 8.8 % (25-40); Mean Corpuscular HGB Conc 33.4 % (30-36); Mean Corpuscular Hemoglobin 28.9 PG (26-34); Mean Corpuscular Volume 86.3 fL (80-100); Monocytes Absolute Auto 1000 /uL (0-900); Monocytes Percent Auto 5.2 % (3-14); Neutrophils Absolute Auto 16300 /uL (1500-7000); Neutrophils Percent Auto 85.5 % (50-75); Platelet Count 367 X10^3/uL (150-400); Red Blood Cell Count 3.77 X10^6/uL (4.0-5.2); Red Cell Distribution Width 12.9 % (11.6-14.8)
[2021-07-13 11:40] LABS: BUN Creatinine Ratio 12.4 (6-22); Blood Urea Nitrogen 11 mg/dL (7-17); Calcium 8.8 mg/dL (8.4-10.2); Carbon Dioxide 23 mmol/L (22-32); Chloride 103 mmol/L (98-107); Estimated Glomerular Filt Rate > 60.0 mL/min (>60); Glucose 161 mg/dL (80-110); HEMOLYSIS < 15 (0-50); Potassium 3.7 mmol/L (3.4-5.1); Sodium 135 mmol/L (137-145)
[2021-07-13 13:35] LABS: BUN Creatinine Ratio 12.8 (6-22); Blood Urea Nitrogen 11 mg/dL (7-17); Carbon Dioxide 19 mmol/L (22-32); Chloride 105 mmol/L (98-107); Estimated Glomerular Filt Rate > 60.0 mL/min (>60); Glucose 88 mg/dL (80-110); HEMOLYSIS 46 (0-50); Potassium 4.3 mmol/L (3.4-5.1); Sodium 134 mmol/L (137-145)
--- NOTE | 2021-07-13 14:16 | PC.NURSE ---
Day shift: Pt awake after 1 hour nap and she remains A&Ox4. Calm and cooperative with care. She is hungry and tolerating food. Continues to void approx every hour with very light yellow output. Last Na+ [address] Thorpe aware. Denies any pain. Call light in reach.
[2021-07-13] MEDS: IBUPROFEN 600 MG TABLET PO ×2 (15:30→22:00)
[2021-07-13] MEDS: BENZOCAINE/MENTHOL 1 LOZ PKT 1 EACH PO (15:30)
--- NOTE | 2021-07-13 19:11 | PC.NURSE ---
Day shift: Clarified with {Pt and Pt's spouse 300mg 2100 dose of seroquel with ADRIAN Cat at this time.
[2021-07-13] MEDS: QUETIAPINE 100 MG TABLET 300 MG PO (20:49)
[2021-07-14 04:49] VITALS: BP 150/84; PULSE 90; RESP 18; TEMP 36.1; O2SAT 95
[2021-07-14] MEDS: SODIUM CHLORIDE 0.9% FLUSH 10 ML IV ×2 (05:33→08:04)
[2021-07-14] MEDS: LEVOTHYROXINE 75 MCG TABLET 50 MCG PO (05:39)
[2021-07-14] MEDS: cefTRIAXone 1,000 MG in SODIUM CHLORIDE 0.9% 100 ML 200 ML IV (05:39)
[2021-07-14 07:38] VITALS: O2SAT 99
[2021-07-14] MEDS: PANTOPRAZOLE 40 MG VIAL IV (08:04)
[2021-07-14] MEDS: DULOXETINE 30 MG CAPSULE 60 MG PO (08:04)
[2021-07-14] MEDS: QUETIAPINE 25 MG TABLET 50 MG PO (08:04)
[2021-07-14] MEDS: AMLODIPINE 5 MG TABLET 10 MG PO (08:04)
[2021-07-14 08:23] VITALS: BP 148/63; PULSE 94; RESP 20; TEMP 35.9; O2SAT 100
[2021-07-14] MEDS: IBUPROFEN 600 MG TABLET PO (09:34)
[2021-07-14 09:53] LABS: Add Manual Diff / Slide Review NO; Basophils Absolute Auto 100 /uL (0-100); Basophils Percent Auto 0.5 % (0-2); Eosinophils Absolute Auto 100 /uL (0-450); Eosinophils Percent Auto 0.8 % (2-4); Hematocrit 33.2 % (36-46); Hemoglobin 11.2 g/dL (12.0-16.0); Lymphocytes Absolute Auto 2700 /uL (1100-4500); Lymphocytes Percent Auto 18.5 % (25-40); Mean Corpuscular HGB Conc 33.8 % (30-36); Mean Corpuscular Hemoglobin 29.7 PG (26-34); Mean Corpuscular Volume 87.7 fL (80-100); Monocytes Absolute Auto 900 /uL (0-900); Monocytes Percent Auto 5.9 % (3-14); Neutrophils Absolute Auto 10900 /uL (1500-7000); Neutrophils Percent Auto 74.3 % (50-75); Platelet Count 373 X10^3/uL (150-400); Red Blood Cell Count 3.79 X10^6/uL (4.0-5.2); White Blood Cell Count 14.7 X10^3/uL (4.5-11.0)
[2021-07-14 09:54] LABS: BUN Creatinine Ratio 10.2 (6-22); Blood Urea Nitrogen 10 mg/dL (7-17); Calcium 8.9 mg/dL (8.4-10.2); Carbon Dioxide 23 mmol/L (22-32); Chloride 102 mmol/L (98-107); Estimated Glomerular Filt Rate 55.9 mL/min (>60); Glucose 199 mg/dL (80-110); HEMOLYSIS < 15 (0-50); Potassium 3.4 mmol/L (3.4-5.1); Sodium 136 mmol/L (137-145)
--- NOTE | 2021-07-14 10:19 | P.DS_ITS ---
History of Present Illness History of Present Illness Date Patient Seen: 07/14/21 Time Patient Seen: 10:19 Chief complaint: VOMITING, HX LOW SODIUM Narrative: Per Dr. Flores, Ms. Kim is a 69W with PMH anxiety, depression, HTN, hypothyroidism who comes in to the hospital with nausea and vomiting. She says she has had issues multiple times in the past years with nausea and hyponatremia. She has been diagnosed with stomach ulcers years ago, but last EGD was 6-7 years ago. She states she was in her normal state of health until earlier tonight she started having frequent vomiting and nausea. She had no abdominal pain. She had cons tipation and vomiting. She has no fevers/chills. She had no cough or shortness of breath. She says she feels slightly confused, and her spouse agrees that she is slightly confused. She does not feel particularly dehydrated at the moment. She is complaining of significant chronic right leg pain from arthritis and bursitis. She has started any new medications. In the ED workup was done, vitals notable for temp 98.5, hr 105, rr 22, bp 188/74, o2 sat 94% on RA. Labs notable for WBC 22.5, hgb 12.2, plts 478. Na 121, creatinine 0.94. Lactate 3.2. UA negative. Chest xray and abdominal xray showed no acute process on my view with final report pending. Family history: Mother with CAD Discharge Providers Provider Date of admission: 07/13/21 04:35 Discharge Date: 07/14/21 Discharge provider: Edgar Thorpe DO Summary Hospital Course Discharge Diagnosis: 1. Symptomatic hyponatremia and vomiting, acute 2. SIRS positive, with elevated lactate, sepsis ruled out 3. Hepatic steatosis with mild transaminitis, chronic 4. Hypothyroidism 5. Depression Hospital Course: This is a 71 year old female admitted with acute nausea and vomiting resulting in acute hyponatremia. She was started on IV fluids with rapid correction of her sodium from 121 to 134. IV fluids were quickly discontinued, and patient developed no neurological symptoms after sodium corrected. She felt much improved on the day of dishcarge without nausea or vomiting. Her WBC was markedly elevated and improved rapidly. She was initiated on ceftriaxone for possible sepsis however given rapid improvement and lack of fever there is highly unlikely an infectious process and antibiotics were discontinued on discharge. She had a transaminitis with unremarkable abdominal CT scan. Transaminase levels improved with fluids and was likely related to dehydration. No medication changes are recommended at the time of discharge. Time Spent with Patient Time spent: Greater than 30 minutes Exam Vital Signs (past 8 hours): - 07/14/21 04:49 07/14/21 07:38 07/14/21 08:23 Temperature 97.0 F L 96.6 F L Pulse Rate 90 94 H Respiratory Rate 18 20 Blood Pressure 150/84 H 148/63 H Pulse Oximetry 95 99 100 Oxygen Delivery Method Room Air Oxygen Flow Rate 0 Narrative Exam Narrative: GEN: no acute distress, WDWN HEENT: moist mucous membranes, PERRL NECK: trachea midline, no JVD CV: tachycardic, no murmurs PULM: clear bilaterally, no wheezes, rhonchi, rales ABD: soft, nontender, nondistended, normal bowel sounds EXT: warm and well perfused, mild edema no right leg SKIN: warm, no rashes noted NEURO: no focal deficits, moving all extremities PSYCH: cooperative, pleasant, Objective Labs Result Diagrams: 07/14/21 09:05 07/14/21 09:05 Labs: Laboratory Results - last 24 hr 07/13/21 07/13/21 07/13/21 11:10 11:10 13:10 WBC 19.0 H RBC 3.77 L Hgb 10.9 L Hct 32.5 L MCV 86.3 MCH 28.9 MCHC 33.4 RDW 12.9 Plt Count 367 Neut % (Auto) 85.5 H Lymph % (Auto) 8.8 L [place] % (Auto) 5.2 Eos % (Auto) 0.1 L Baso % (Auto) 0.4 Neut # (Auto) 04011 H Lymph # (Auto) 1700 [place] # (Auto) 1000 H Eos # (Auto) 0 Baso # (Auto) 100 Sodium 135 L D 134 L Potassium 3.7 4.3 Chloride 103 105 Carbon Dioxide 23 19 L BUN 11 11 Creatinine 0.89 0.86 Estimated GFR > 60.0 > 60.0 BUN/Creatinine Ratio 12.4 12.8 Glucose 161 H 88 Calcium 8.8 9.0 07/14/21 07/14/21 09:05 09:05 WBC 14.7 H RBC 3.79 L Hgb 11.2 L Hct 33.2 L MCV 87.7 MCH 29.7 MCHC 33.8 RDW 13.0 Plt Count 373 Neut % (Auto) 74.3 Lymph % (Auto) 18.5 L [place] % (Auto) 5.9 Eos % (Auto) 0.8 L Baso % (Auto) 0.5 Neut # (Auto) 43710 H Lymph # (Auto) 2700 [place] # (Auto) 900 Eos # (Auto) 100 Baso # (Auto) 100 Sodium 136 L Potassium 3.4 Chloride 102 Carbon Dioxide 23 BUN 10 Creatinine 0.98 Estimated GFR 55.9 L BUN/Creatinine Ratio 10.2 Glucose 199 H D Calcium 8.9 PFSH Medical History Bipolar disorder Eczema Hypertension Hypothyroidism (acquired) Surgical History Hx of cholecystectomy Social History household members: spouse Smoking Status: Never smoker alcohol intake: former Discharge Plan Discharge Plan Patient Disposition: Home Provider Discharge Comment: You were admitted to the hospital with nausea and vomiting and a low sodium. The brand the hospital uses of ibuprofen is from [employer] packaging. You may need to try different brands or you can try naproxen to see if this works better for your pain. Discharge orders & Medications Prescriptions: Continued levothyroxine 75 mcg Tablet 50 mcg PO DAILY 0RF amlodipine 10 mg Tablet 10 mg PO DAILY 0RF quetiapine 50 mg Tablet 50 mg PO BID 0RF duloxetine 60 mg Capsule, Delayed Rel Sprinkle 60 mg PO DAILY 0RF quetiapine 300 mg Tablet 300 mg PO BEDTIME 0RF Diet/Activity/Treatments Diet: Diet as Tolerated Activity: As tolerated Visit Report/Discharge Packet Instructions: DI for Hyponatremia, How to Prevent Falls
--- NOTE | 2021-07-14 11:11 | PC.NURSE ---
Day shift: D/c teachings done by ADRIAN Kelsey prior to d/c today.
--- NOTE | 2021-07-14 11:49 | PC.NURSE ---
Day shift: Pt left AC unit at approx 1130. Pt has all personal belongings. Paperwork signed and all questions answered. Taken to car in by SKY Singh. Pt's spouse is driving her home.
[2021-07-14 13:39] LABS: Osmolality Urine 344 mOsmol/kg (.)
[2021-07-14 13:39] LABS: Osmolality, Serum 265 mOsmol/kg (280-301)
== END 2021-07-14 11:50 | disposition home or self-care (01) | DRG 641 ==
LOC: ED 03:48 → AC 04:35
PROVIDERS: Internal Medicine; Admitting Provider Internal Medicine; Emergency Provider Emergency Medicine; Referring Provider Emergency Medicine; Visit Provider Internal Medicine
DX: E87.1 Hypo-osmolality and hyponatremia (principal); R65.10 Systemic inflammatory response syndrome (SIRS) of non-infectious origin without acute organ dysfunction; E86.1 Hypovolemia; E03.9 Hypothyroidism, unspecified; F32.A Depression, unspecified; I10 Essential (primary) hypertension; Z20.822 Contact with and (suspected) exposure to COVID-19
CPT/HCPCS: 36415; 74022; 74177; 80048; 80053; 80178; 81003; 81015; 83605; 83930; 83935; 84443; 85025; 87040; 87086; 87635; 94762; 96361; 96365; 96375; 99284; C9803; C9113; J0696; J1650; J1885; J2405; Q9967

== ENCOUNTER 2021-07-20 23:10 | Emergency (ER) | payer MEDICARE, SELFPAY ==
[2021-07-13 05:37] VITALS: BMI 28.6
[2021-07-20 23:15] VITALS: BP 118/59; PULSE 111; RESP 18; TEMP 36.7; O2SAT 96; BMI 28.9
--- NOTE | 2021-07-20 23:37 | ED.GENADULT ---
HPI - General Adult <Elda Freedman MD - Last Filed: 07/28/21 01:53> General Chief complaint: Recheck/Abnormal Lab/Rx Stated complaint: sodium levels low Time Seen by Provider: 07/20/21 23:36 Source: patient Mode of arrival: Family Vehicle History of Present Illness HPI narrative: 71-year-old woman with a history of depression anxiety, hypertension, bipolar disorder, hypothyroidism and hospitalization on July 14 with nausea vomiting and hyponatremia. Her notes that she seem to do well for 1-2 days after discharge and then has had increasing confusion. He brings her in today complaining that she is not remembering anything, she is repeating herself, she is unable to stay focused and she has had 2 episodes of urinary incontinence which has never happened before. She does not report fever headache, vomiting, abdominal pain, swelling in her lower extremities. She does complain of low back pain which she states is chronic. She has had no cough however when she is sleeping she is hypoxic into the 88% range which was not noticed with her recent hospital admission. She reports taking all medication as prescribed and no new medications. Her reports that over the last several days she has been more unstable with walking. Related Data Home Medications Medication Instructions Recorded Confirmed amlodipine 10 mg tablet 10 mg PO DAILY 03/06/20 07/13/21 duloxetine 60 mg capsule,delayed 60 mg PO DAILY 03/06/20 07/13/21 release sprinkle levothyroxine 75 mcg tablet 50 mcg PO DAILY 03/06/20 07/13/21 quetiapine 50 mg tablet 50 mg PO BID 03/06/20 07/13/21 quetiapine 300 mg tablet 300 mg PO BEDTIME 07/13/21 07/13/21 Allergies Allergy/AdvReac Type Severity Reaction Status Date / Time Sulfa (Sulfonamide Allergy Unknown Verified 07/20/21 23:19 Antibiotics) desipramine Allergy Rash Verified 07/20/21 23:19 Review of Systems <Elda Freedman MD - Last Filed: 07/28/21 01:53> Review of Systems Narrative: Remainder of complete review of systems is otherwise unremarkable except for that included in the HPI. Patient History <Elda Freedman MD - Last Filed: 07/28/21 01:53> Medical History (Updated 07/21/21 @ 05:15 by Elda Freedman MD) Bipolar disorder Eczema Hypertension Hypothyroidism (acquired) Surgical History Hx of cholecystectomy Social History household members: spouse Smoking Status: Never smoker alcohol intake: former Smoking Status: Never smoker Substance Use Type: does not use Exam <Elda Freedman MD - Last Filed: 07/28/21 01:53> Initial Vital Signs Initial Vital Signs: Vital Signs Temperature 98.0 F 07/20/21 23:15 Pulse Rate 111 H 07/20/21 23:15 Respiratory Rate 18 07/20/21 23:15 Blood Pressure 118/59 L 07/20/21 23:15 Pulse Oximetry 96 07/20/21 23:15 General: Healthy appearing, in no acute distress. Well-nourished well-developed HEENT: Moist mucous membranes, normal sclera with reactive pupils Neck: No JVD, she does complain that flexing her neck does contact pain into her low back and all along her thoracic spine. Respiratory: Lungs are clear to auscultation, no wheezing no rales no rhonchi. Full and symmetrical air movement Cardiac: Regular rate and rhythm, 3/6 ejection murmur without bruits. Abdomen: Soft, nontender, good bowel tones, no flank pain Skin: Warm and dry, no rashes Spine: Mild tenderness to palpation along thoracic and lumbar spine without point tenderness or paraspinous spasm Neurologic: Grossly neurologically intact with no obvious asymmetries or abnormalities Extremities: No trauma, well perfused, no lower extremity edema Psych: Confused, repetitive, inappropriate laughter and tangential thought process. <Rohit Melendez DO - Last Filed: 07/21/21 19:55> Initial Vital Signs Initial Vital Signs: Vital Signs Temperature 98.0 F 07/20/21 23:15 Pulse Rate 111 H 07/20/21 23:15 Respiratory Rate 18 07/20/21 23:15 Blood Pressure 118/59 L 07/20/21 23:15 Pulse Oximetry 96 07/20/21 23:15 Procedures <Elda Freedman MD - Last Filed: 07/28/21 01:53> Lumbar Puncture Time of procedure: 03:15 Time Out Performed: Yes Patient Position: upright (intital LL decubitus position failed) Skin Prep: Povidone-Iodine 1% Local Anesthetic: lidocaine 1% Amount of anesthesia used (mL): 2 Interspace Used: L4-L5 Opening Pressure (cmH20): 43 Fluid Initially Obtained: bloody (significantly traumatic tap) Complications: traumatic tap Additional Comments: Despite encouragement and generous amount of local anesthetic at patient was not able to position herself or remains stable enough for safe or effective LP. One per kilos of IV ketamine was used for minimal sedation and relaxation to help with positioning, goal is not conscious sedation. She did become hypoxic and oxygen was added with nice increased to saturations. Despite the mild sedative, she continued to be unable to hold still. Additional assistance was obtained and she was moved from a lateral position to an upright position. After multiple attempts CSF was obtained in the L 4 5 interspace. Initially quite bloody but cleared nicely. Opening pressure was 43 cm however she was somewhat agitated and sitting upright. Samples were sent to the lab. Blood did clear nicely and fluid is clear. A total of 35 cc of CSF is allowed to drain. Course <Elda Freedman MD - Last Filed: 07/28/21 01:53> Orders Ordered: Discontinued Medications Sodium Chloride (Normal Saline 0.9%) 1,000 mls @ 1,000 mls/hr IV BOLUS ONE Stop: 07/21/21 05:08 Last Infusion: 07/21/21 05:26 Dose: 0 mls/hr Documented by: Admin: 07/21/21 04:17 Dose: 1,000 mls/hr Documented by: JULIO Ondansetron HCl (Ondansetron 4 Mg/2 Ml Inj) 4 mg IV NOW ONE Stop: 07/21/21 04:10 Last Admin: 07/21/21 04:16 Dose: 4 mg Documented by: JULIO Vital Signs Vital signs: Vital Signs - 8 hr 07/21/21 12:00 Pulse Rate 102 H Blood Pressure 148/73 H Pulse Oximetry 99 <Rohit Melendez DO - Last Filed: 07/21/21 19:55> Orders Ordered: Discontinued Medications Sodium Chloride (Normal Saline 0.9%) 1,000 mls @ 1,000 mls/hr IV BOLUS ONE Stop: 07/21/21 05:08 Last Infusion: 07/21/21 05:26 Dose: 0 mls/hr Documented by: Admin: 07/21/21 04:17 Dose: 1,000 mls/hr Documented by: JULIO Ondansetron HCl (Ondansetron 4 Mg/2 Ml Inj) 4 mg IV NOW ONE Stop: 07/21/21 04:10 Last Admin: 07/21/21 04:16 Dose: 4 mg Documented by: JULIO Consultations Consultation #1: call to Neurology and [facility], Dr. Rai. After an extensive discussion patient's current history and physical exam, labs, imaging and responsive therapies as well as recent hospitalization we sure the opinion that not only has the workup been extremely thorough but also very reassuring. There is no evidence of meningitis, subarachnoid hemorrhage, electrolyte abnormality or other. Furthermore, the absence of hydrocephalus on imaging and high opening pressure would suggest against a diagnosis of normal pressure hydrocephalus despite her improvement after LP and presentation. He recommends discharge with close follow-up and takes her contact information, further suggesting that her primary care provider submit an urgent referral on Saturday. Vital Signs Vital signs: Vital Signs - 8 hr 07/21/21 12:00 Pulse Rate 102 H Blood Pressure 148/73 H Pulse Oximetry 99 Medical Decision Making <Elda Freedman MD - Last Filed: 07/28/21 01:53> Lab Data Result diagrams: 07/20/21 23:45 07/20/21 23:45 Labs: Lab Results 07/20/21 07/20/21 07/21/21 Range/Units 23:45 23:45 01:30 WBC 9.0 (4.5-11.0) X10^3/uL RBC 3.60 L (4.0-5.2) X10^6/uL Hgb 10.6 L (12.0-16.0) g/dL Hct 30.8 L (36-46) % MCV 85.7 (80-100) fL MCH 29.6 (26-34) PG MCHC 34.5 (30-36) % RDW 12.7 (11.6-14.8) % Plt Count 341 (150-400) X10^3/uL Neut % (Auto) 71.0 (50-75) % Lymph % (Auto) 13.2 L (25-40) % [place] % (Auto) 10.6 (3-14) % Eos % (Auto) 4.5 H (2-4) % Baso % (Auto) 0.7 (0-2) % Neut # (Auto) 6400 (2474-1778) /uL Lymph # (Auto) 1200 (5072-4972) /uL [place] # (Auto) 900 (0-900) /uL Eos # (Auto) 400 (0-450) /uL Baso # (Auto) 100 (0-100) /uL Sodium 132 L (137-145) mmol/L Potassium 3.5 (3.4-5.1) mmol/L Chloride 100 (98-107) mmol/L Carbon Dioxide 23 (22-32) mmol/L BUN 12 (7-17) mg/dL Creatinine 1.18 H (0.52-1.04) mg/dL Estimated GFR 45.2 L (>60) mL/min BUN/Creatinine Ratio 10.2 (6-22) Glucose 125 H (80-110) mg/dL Serum Osmolality (280-301) mOsmol/kg Calcium 9.3 (8.4-10.2) mg/dL Total Bilirubin 0.4 (0.2-1.3) mg/dL AST 30 (14-36) IU/L ALT 21 (<35) IU/L Alkaline Phosphatase 105 (38-126) U/L Total Protein 7.5 (6.3-8.2) g/dL Albumin 4.1 (3.5-5.0) g/dL Globulin 3.4 (1.7-4.1) g/dL Albumin/Globulin Ratio 1.2 (1.0-2.8) TSH (0.47-4.68) uIU/mL Urine Color Yellow Urine Appearance Clear Urine pH 6.0 (4.5-8.0) Ur Specific [place] <=1.005 (1.000-1.035) Urine Protein Negative (Negative) Urine Glucose (UA) Negative (Negative) g/dL Urine Ketones Negative (NEGATIVE) Urine Occult Blood 1+ H (Negative) Urine Nitrate Negative (Negative) Urine Bilirubin Negative (NEGATIVE) Urine Urobilinogen 0.2 (0.2) E.U./dL Ur Leukocyte Esterase Negative (NEGATIVE) Urine RBC 0-1/hpf (0-5/HPF) Urine WBC 0-1/hpf (0-5/HPF) Ur Squamous Epith Cells 1-5 /hpf (0-5/HPF) Urine Bacteria Occasional (0-1) (None) Ur Culture Indicated? Cult not indicated Urine Osmolality (.) mOsmol/kg Ur Random Sodium (30-90) mmol/L Urine Creatinine mg/dL CSF Tube Number CSF Volume CSF Appearance (Clear) CSF Color (Colorless) CSF WBC (0-5) MONO/uL CSF RBC RBC /uL CSF Mononuclear WBCs CSF Polynuclear WBCs CSF Glucose (40-70) mg/dL CSF Total Protein (12-60) mg/dL CSF C.neoform/gat PCR (Not Detect) CSF CMV DNA (PCR) (Not Detect) CSF Enterovirus (PCR) (Not Detect) CSF E. coli (PCR) (Not Detect) CSF H. influenzae (PCR) (Not Detect) CSF HSV I (PCR) (Not Detect) CSF HSV II (PCR) (Not Detect) CSF HHV 6 (PCR) (Not Detect) CSF L.monocytogenes PCR (Not Detect) CSF N. meningitidis PCR (Not Detect) CSF Parechovirus (PCR) (Not Detect) CSF S. agalactiae (PCR) (Not Detect) CSF S. pneumoniae (PCR) (Not Detect) CSF VZV (PCR) (Not Detecte) U Opiates 300ng/mL cut (Negative) Ur Oxycodone Screen (Negative) Urine Methadone Screen (Negative) Ur Barbiturates Screen (Negative) U Tricyclic Antidepress (Negative) Ur Phencyclidine Scrn (Negative) Ur Amphetamines Screen (Negative) U Methamphetamines Scrn (Negative) Ur MDMA Scrn (Ecstasy) (Negative) U Benzodiazepines Scrn (Negative) Urine Cocaine Screen (Negative) U Marijuana (THC) Screen (Negative) SARS-CoV-2 (PCR) (Negative) 07/21/21 07/21/21 07/21/21 Range/Units 01:30 01:30 03:10 WBC (4.5-11.0) X10^3/uL RBC (4.0-5.2) X10^6/uL Hgb (12.0-16.0) g/dL Hct (36-46) % MCV (80-100) fL MCH (26-34) PG MCHC (30-36) % RDW (11.6-14.8) % Plt Count (150-400) X10^3/uL Neut % (Auto) (50-75) % Lymph % (Auto) (25-40) % [place] % (Auto) (3-14) % Eos % (Auto) (2-4) % Baso % (Auto) (0-2) % Neut # (Auto) (0442-5948) /uL Lymph # (Auto) (8378-4498) /uL [place] # (Auto) (0-900) /uL Eos # (Auto) (0-450) /uL Baso # (Auto) (0-100) /uL Sodium (137-145) mmol/L Potassium (3.4-5.1) mmol/L Chloride (98-107) mmol/L Carbon Dioxide (22-32) mmol/L BUN (7-17) mg/dL Creatinine (0.52-1.04) mg/dL Estimated GFR (>60) mL/min BUN/Creatinine Ratio (6-22) Glucose (80-110) mg/dL Serum Osmolality (280-301) mOsmol/kg Calcium (8.4-10.2) mg/dL Total Bilirubin (0.2-1.3) mg/dL AST (14-36) IU/L ALT (<35) IU/L Alkaline Phosphatase (38-126) U/L Total Protein (6.3-8.2) g/dL Albumin (3.5-5.0) g/dL Globulin (1.7-4.1) g/dL Albumin/Globulin Ratio (1.0-2.8) TSH (0.47-4.68) uIU/mL Urine Color Urine Appearance Urine pH (4.5-8.0) Ur Specific [place] (1.000-1.035) Urine Protein (Negative) Urine Glucose (UA) (Negative) g/dL Urine Ketones (NEGATIVE) Urine Occult Blood (Negative) Urine Nitrate (Negative) Urine Bilirubin (NEGATIVE) Urine Urobilinogen (0.2) E.U./dL Ur Leukocyte Esterase (NEGATIVE) Urine RBC (0-5/HPF) Urine WBC (0-5/HPF) Ur Squamous Epith Cells (0-5/HPF) Urine Bacteria (None) Ur Culture Indicated? Urine Osmolality 117 (.) mOsmol/kg Ur Random Sodium (30-90) mmol/L Urine Creatinine mg/dL CSF Tube Number CSF Volume CSF Appearance (Clear) CSF Color (Colorless) CSF WBC (0-5) MONO/uL CSF RBC RBC /uL CSF Mononuclear WBCs CSF Polynuclear WBCs CSF Glucose 71 H (40-70) mg/dL CSF Total Protein 49 (12-60) mg/dL CSF C.neoform/gat PCR (Not Detect) CSF CMV DNA (PCR) (Not Detect) CSF Enterovirus (PCR) (Not Detect) CSF E. coli (PCR) (Not Detect) CSF H. influenzae (PCR) (Not Detect) CSF HSV I (PCR) (Not Detect) CSF HSV II (PCR) (Not Detect) CSF HHV 6 (PCR) (Not Detect) CSF L.monocytogenes PCR (Not Detect) CSF N. meningitidis PCR (Not Detect) CSF Parechovirus (PCR) (Not Detect) CSF S. agalactiae (PCR) (Not Detect) CSF S. pneumoniae (PCR) (Not Detect) CSF VZV (PCR) (Not Detecte) U Opiates 300ng/mL cut Negative (Negative) Ur Oxycodone Screen Negative (Negative) Urine Methadone Screen Negative (Negative) Ur Barbiturates Screen Negative (Negative) U Tricyclic Antidepress Positive H (Negative) Ur Phencyclidine Scrn Negative (Negative) Ur Amphetamines Screen Negative (Negative) U Methamphetamines Scrn Negative (Negative) Ur MDMA Scrn (Ecstasy) Negative (Negative) U Benzodiazepines Scrn Negative (Negative) Urine Cocaine Screen Negative (Negative) U Marijuana (THC) Screen Negative (Negative) SARS-CoV-2 (PCR) (Negative) 07/21/21 07/21/21 07/21/21 Range/Units 03:10 03:10 03:10 WBC (4.5-11.0) X10^3/uL RBC (4.0-5.2) X10^6/uL Hgb (12.0-16.0) g/dL Hct (36-46) % MCV (80-100) fL MCH (26-34) PG MCHC (30-36) % RDW (11.6-14.8) % Plt Count (150-400) X10^3/uL Neut % (Auto) (50-75) % Lymph % (Auto) (25-40) % [place] % (Auto) (3-14) % Eos % (Auto) (2-4) % Baso % (Auto) (0-2) % Neut # (Auto) (7789-4818) /uL Lymph # (Auto) (0052-3547) /uL [place] # (Auto) (0-900) /uL Eos # (Auto) (0-450) /uL Baso # (Auto) (0-100) /uL Sodium (137-145) mmol/L Potassium (3.4-5.1) mmol/L Chloride (98-107) mmol/L Carbon Dioxide (22-32) mmol/L BUN (7-17) mg/dL Creatinine (0.52-1.04) mg/dL Estimated GFR (>60) mL/min BUN/Creatinine Ratio (6-22) Glucose (80-110) mg/dL Serum Osmolality (280-301) mOsmol/kg Calcium (8.4-10.2) mg/dL Total Bilirubin (0.2-1.3) mg/dL AST (14-36) IU/L ALT (<35) IU/L Alkaline Phosphatase (38-126) U/L Total Protein (6.3-8.2) g/dL Albumin (3.5-5.0) g/dL Globulin (1.7-4.1) g/dL Albumin/Globulin Ratio (1.0-2.8) TSH (0.47-4.68) uIU/mL Urine Color Urine Appearance Urine pH (4.5-8.0) Ur Specific [place] (1.000-1.035) Urine Protein (Negative) Urine Glucose (UA) (Negative) g/dL Urine Ketones (NEGATIVE) Urine Occult Blood (Negative) Urine Nitrate (Negative) Urine Bilirubin (NEGATIVE) Urine Urobilinogen (0.2) E.U./dL Ur Leukocyte Esterase (NEGATIVE) Urine RBC (0-5/HPF) Urine WBC (0-5/HPF) Ur Squamous Epith Cells (0-5/HPF) Urine Bacteria (None) Ur Culture Indicated? Urine Osmolality (.) mOsmol/kg Ur Random Sodium (30-90) mmol/L Urine Creatinine mg/dL CSF Tube Number 1 4 CSF Volume 2.0 ml 3.0 ml CSF Appearance Slightly cloudy H Slightly cloudy H (Clear) CSF Color Red H [place] H (Colorless) CSF WBC 2 2 (0-5) MONO/uL CSF RBC 42174 3850 RBC /uL CSF Mononuclear WBCs TNP TNP CSF Polynuclear WBCs TNP TNP CSF Glucose (40-70) mg/dL CSF Total Protein (12-60) mg/dL CSF C.neoform/gat PCR Not detected (Not Detect) CSF CMV DNA (PCR) Not detected (Not Detect) CSF Enterovirus (PCR) Not detected (Not Detect) CSF E. coli (PCR) Not detected (Not Detect) CSF H. influenzae (PCR) Not detected (Not Detect) CSF HSV I (PCR) Not detected (Not Detect) CSF HSV II (PCR) Not detected (Not Detect) CSF HHV 6 (PCR) Not detected (Not Detect) CSF L.monocytogenes PCR Not detected (Not Detect) CSF N. meningitidis PCR Not detected (Not Detect) CSF Parechovirus (PCR) Not detected (Not Detect) CSF S. agalactiae (PCR) Not detected (Not Detect) CSF S. pneumoniae (PCR) Not detected (Not Detect) CSF VZV (PCR) Not detected (Not Detecte) U Opiates 300ng/mL cut (Negative) Ur Oxycodone Screen (Negative) Urine Methadone Screen (Negative) Ur Barbiturates Screen (Negative) U Tricyclic Antidepress (Negative) Ur Phencyclidine Scrn (Negative) Ur Amphetamines Screen (Negative) U Methamphetamines Scrn (Negative) Ur MDMA Scrn (Ecstasy) (Negative) U Benzodiazepines Scrn (Negative) Urine Cocaine Screen (Negative) U Marijuana (THC) Screen (Negative) SARS-CoV-2 (PCR) (Negative) 07/21/21 07/21/21 07/21/21 Range/Units 08:00 23:45 23:45 WBC (4.5-11.0) X10^3/uL RBC (4.0-5.2) X10^6/uL Hgb (12.0-16.0) g/dL Hct (36-46) % MCV (80-100) fL MCH (26-34) PG MCHC (30-36) % RDW (11.6-14.8) % Plt Count (150-400) X10^3/uL Neut % (Auto) (50-75) % Lymph % (Auto) (25-40) % [place] % (Auto) (3-14) % Eos % (Auto) (2-4) % Baso % (Auto) (0-2) % Neut # (Auto) (8476-6539) /uL Lymph # (Auto) (4835-9080) /uL [place] # (Auto) (0-900) /uL Eos # (Auto) (0-450) /uL Baso # (Auto) (0-100) /uL Sodium (137-145) mmol/L Potassium (3.4-5.1) mmol/L Chloride (98-107) mmol/L Carbon Dioxide (22-32) mmol/L BUN (7-17) mg/dL Creatinine (0.52-1.04) mg/dL Estimated GFR (>60) mL/min BUN/Creatinine Ratio (6-22) Glucose (80-110) mg/dL Serum Osmolality (280-301) mOsmol/kg Calcium (8.4-10.2) mg/dL Total Bilirubin (0.2-1.3) mg/dL AST (14-36) IU/L ALT (<35) IU/L Alkaline Phosphatase (38-126) U/L Total Protein (6.3-8.2) g/dL Albumin (3.5-5.0) g/dL Globulin (1.7-4.1) g/dL Albumin/Globulin Ratio (1.0-2.8) TSH 1.82 D (0.47-4.68) uIU/mL Urine Color Urine Appearance Urine pH (4.5-8.0) Ur Specific [place] (1.000-1.035) Urine Protein (Negative) Urine Glucose (UA) (Negative) g/dL Urine Ketones (NEGATIVE) Urine Occult Blood (Negative) Urine Nitrate (Negative) Urine Bilirubin (NEGATIVE) Urine Urobilinogen (0.2) E.U./dL Ur Leukocyte Esterase (NEGATIVE) Urine RBC (0-5/HPF) Urine WBC (0-5/HPF) Ur Squamous Epith Cells (0-5/HPF) Urine Bacteria (None) Ur Culture Indicated? Urine Osmolality (.) mOsmol/kg Ur Random Sodium 12 L (30-90) mmol/L Urine Creatinine 44.8 mg/dL CSF Tube Number CSF Volume CSF Appearance (Clear) CSF Color (Colorless) CSF WBC (0-5) MONO/uL CSF RBC RBC /uL CSF Mononuclear WBCs CSF Polynuclear WBCs CSF Glucose (40-70) mg/dL CSF Total Protein (12-60) mg/dL CSF C.neoform/gat PCR (Not Detect) CSF CMV DNA (PCR) (Not Detect) CSF Enterovirus (PCR) (Not Detect) CSF E. coli (PCR) (Not Detect) CSF H. influenzae (PCR) (Not Detect) CSF HSV I (PCR) (Not Detect) CSF HSV II (PCR) (Not Detect) CSF HHV 6 (PCR) (Not Detect) CSF L.monocytogenes PCR (Not Detect) CSF N. meningitidis PCR (Not Detect) CSF Parechovirus (PCR) (Not Detect) CSF S. agalactiae (PCR) (Not Detect) CSF S. pneumoniae (PCR) (Not Detect) CSF VZV (PCR) (Not Detecte) U Opiates 300ng/mL cut (Negative) Ur Oxycodone Screen (Negative) Urine Methadone Screen (Negative) Ur Barbiturates Screen (Negative) U Tricyclic Antidepress (Negative) Ur Phencyclidine Scrn (Negative) Ur Amphetamines Screen (Negative) U Methamphetamines Scrn (Negative) Ur MDMA Scrn (Ecstasy) (Negative) U Benzodiazepines Scrn (Negative) Urine Cocaine Screen (Negative) U Marijuana (THC) Screen (Negative) SARS-CoV-2 (PCR) Negative (Negative) 07/21/21 Range/Units 23:45 WBC (4.5-11.0) X10^3/uL RBC (4.0-5.2) X10^6/uL Hgb (12.0-16.0) g/dL Hct (36-46) % MCV (80-100) fL MCH (26-34) PG MCHC (30-36) % RDW (11.6-14.8) % Plt Count (150-400) X10^3/uL Neut % (Auto) (50-75) % Lymph % (Auto) (25-40) % [place] % (Auto) (3-14) % Eos % (Auto) (2-4) % Baso % (Auto) (0-2) % Neut # (Auto) (8841-0034) /uL Lymph # (Auto) (9455-4814) /uL [place] # (Auto) (0-900) /uL Eos # (Auto) (0-450) /uL Baso # (Auto) (0-100) /uL Sodium (137-145) mmol/L Potassium (3.4-5.1) mmol/L Chloride (98-107) mmol/L Carbon Dioxide (22-32) mmol/L BUN (7-17) mg/dL Creatinine (0.52-1.04) mg/dL Estimated GFR (>60) mL/min BUN/Creatinine Ratio (6-22) Glucose (80-110) mg/dL Serum Osmolality 275 L (280-301) mOsmol/kg Calcium (8.4-10.2) mg/dL Total Bilirubin (0.2-1.3) mg/dL AST (14-36) IU/L ALT (<35) IU/L Alkaline Phosphatase (38-126) U/L Total Protein (6.3-8.2) g/dL Albumin (3.5-5.0) g/dL Globulin (1.7-4.1) g/dL Albumin/Globulin Ratio (1.0-2.8) TSH (0.47-4.68) uIU/mL Urine Color Urine Appearance Urine pH (4.5-8.0) Ur Specific [place] (1.000-1.035) Urine Protein (Negative) Urine Glucose (UA) (Negative) g/dL Urine Ketones (NEGATIVE) Urine Occult Blood (Negative) Urine Nitrate (Negative) Urine Bilirubin (NEGATIVE) Urine Urobilinogen (0.2) E.U./dL Ur Leukocyte Esterase (NEGATIVE) Urine RBC (0-5/HPF) Urine WBC (0-5/HPF) Ur Squamous Epith Cells (0-5/HPF) Urine Bacteria (None) Ur Culture Indicated? Urine Osmolality (.) mOsmol/kg Ur Random Sodium (30-90) mmol/L Urine Creatinine mg/dL CSF Tube Number CSF Volume CSF Appearance (Clear) CSF Color (Colorless) CSF WBC (0-5) MONO/uL CSF RBC RBC /uL CSF Mononuclear WBCs CSF Polynuclear WBCs CSF Glucose (40-70) mg/dL CSF Total Protein (12-60) mg/dL CSF C.neoform/gat PCR (Not Detect) CSF CMV DNA (PCR) (Not Detect) CSF Enterovirus (PCR) (Not Detect) CSF E. coli (PCR) (Not Detect) CSF H. influenzae (PCR) (Not Detect) CSF HSV I (PCR) (Not Detect) CSF HSV II (PCR) (Not Detect) CSF HHV 6 (PCR) (Not Detect) CSF L.monocytogenes PCR (Not Detect) CSF N. meningitidis PCR (Not Detect) CSF Parechovirus (PCR) (Not Detect) CSF S. agalactiae (PCR) (Not Detect) CSF S. pneumoniae (PCR) (Not Detect) CSF VZV (PCR) (Not Detecte) U Opiates 300ng/mL cut (Negative) Ur Oxycodone Screen (Negative) Urine Methadone Screen (Negative) Ur Barbiturates Screen (Negative) U Tricyclic Antidepress (Negative) Ur Phencyclidine Scrn (Negative) Ur Amphetamines Screen (Negative) U Methamphetamines Scrn (Negative) Ur MDMA Scrn (Ecstasy) (Negative) U Benzodiazepines Scrn (Negative) Urine Cocaine Screen (Negative) U Marijuana (THC) Screen (Negative) SARS-CoV-2 (PCR) (Negative) Imaging Data CT scan - head: Radiologist's Impression: Cerebral volume loss with reciprocal been tricky alert and subarachnoid enlargement. No acute intracranial pathology. 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 Age-related findings. Clary Denson DO [facility] Narrative Medical decision making narrative: 71-year-old woman with worsening confusion over the last number of days since recent hospitalization for confusion and hyponatremia. With prior hospitalization she had a fairly marked leukocytosis that has now resolved. She is not currently hyponatremic. Thyroid was recently checked and was unremarkable. On July 13 she had chest x-ray and abdominal CT that were both unremarkable. There have been no changes to medications. Slightly concerning episodes of urinary incontinence with spinal tenderness with head flexion. Possibility of meningitis is entertained however she is afebrile, has no headache and no leukocytosis. With gait instability in the urinary incontinence along with confusion possibility of normal pressure hydrocephalus is also entertained. With her acute confusion at this time the CT scan is ordered urine is sent for further evaluation. Lumbar puncture was performed with significant difficulty. Prior to lumbar puncture we did do a walking trial that was videotaped, she required 5 steps to turn 180? and used a wide-based unstable gait. LP does not look like meningitis or infection. Findings are continuing to be resulted. A total of 35 cc of CSF was removed. 5am patient is still somewhat sedated from the ketamine and significantly fatigued. At this point comparison gait and turning is not quite appropriate. She needs to metabolize the ketamine a bit more. Note she has gotten up to the bathroom and having large volume urine output multiple times, anywhere from every 10-30 minutes. Urinalysis does not suggest urinary tract infection. She continues to complain of being significantly thirsty and is continuing to drink and request quite a bit of water. This may be the behavioral finding and consequence that led to her admission with hyponatremia previously. At this time there is no evidence of sepsis, urinary tract infection, urinary retention, acute stroke, meningitis, acute hyponatremia. She does have continued confusion, abnormal gait and increased urinary frequency with new urinary incontinence. At this time she is too confused and unsteady to return home. I remain concerned about normal pressure hydrocephalus. And beginning to look for bed availability I believe she could benefit from a facility with inpatient neuro consultation and if she is determined to truly have normal pressure hydrocephalus neurosurgery to consider shunt placement. One she has sobered a bit after her ketamine dosage it will be interesting to see if the 35 cc of spinal fluid removed has had any clinical improvement with her overall symptoms. Beds may be available after change of shift this morning at [facility]. No bed availability at [facility]. Will continue to observe her here in the emergency department, will anticipate brain MRI later this morning. She may need additional sedation to be able to do the complete MRI. 645 am discussion wit [facility] transfer center. Bed may be available after change of shift. Basic outline of care reviewed Care is transferred to Dr. Melendez at change of shift <Rohit Melendez, - Last Filed: 07/21/21 19:55> Lab Data Labs: Lab Results 07/20/21 07/20/21 07/21/21 Range/Units 23:45 23:45 01:30 WBC 9.0 (4.5-11.0) X10^3/uL RBC 3.60 L (4.0-5.2) X10^6/uL Hgb 10.6 L (12.0-16.0) g/dL Hct 30.8 L (36-46) % MCV 85.7 (80-100) fL MCH 29.6 (26-34) PG MCHC 34.5 (30-36) % RDW 12.7 (11.6-14.8) % Plt Count 341 (150-400) X10^3/uL Neut % (Auto) 71.0 (50-75) % Lymph % (Auto) 13.2 L (25-40) % [place] % (Auto) 10.6 (3-14) % Eos % (Auto) 4.5 H (2-4) % Baso % (Auto) 0.7 (0-2) % Neut # (Auto) 6400 (6653-7083) /uL Lymph # (Auto) 1200 (0659-7208) /uL [place] # (Auto) 900 (0-900) /uL Eos # (Auto) 400 (0-450) /uL Baso # (Auto) 100 (0-100) /uL Sodium 132 L (137-145) mmol/L Potassium 3.5 (3.4-5.1) mmol/L Chloride 100 (98-107) mmol/L Carbon Dioxide 23 (22-32) mmol/L BUN 12 (7-17) mg/dL Creatinine 1.18 H (0.52-1.04) mg/dL Estimated GFR 45.2 L (>60) mL/min BUN/Creatinine Ratio 10.2 (6-22) Glucose 125 H (80-110) mg/dL Serum Osmolality (280-301) mOsmol/kg Calcium 9.3 (8.4-10.2) mg/dL Total Bilirubin 0.4 (0.2-1.3) mg/dL AST 30 (14-36) IU/L ALT 21 (<35) IU/L Alkaline Phosphatase 105 (38-126) U/L Total Protein 7.5 (6.3-8.2) g/dL Albumin 4.1 (3.5-5.0) g/dL Globulin 3.4 (1.7-4.1) g/dL Albumin/Globulin Ratio 1.2 (1.0-2.8) TSH (0.47-4.68) uIU/mL Urine Color Yellow Urine Appearance Clear Urine pH 6.0 (4.5-8.0) Ur Specific [place] <=1.005 (1.000-1.035) Urine Protein Negative (Negative) Urine Glucose (UA) Negative (Negative) g/dL Urine Ketones Negative (NEGATIVE) Urine Occult Blood 1+ H (Negative) Urine Nitrate Negative (Negative) Urine Bilirubin Negative (NEGATIVE) Urine Urobilinogen 0.2 (0.2) E.U./dL Ur Leukocyte Esterase Negative (NEGATIVE) Urine RBC 0-1/hpf (0-5/HPF) Urine WBC 0-1/hpf (0-5/HPF) Ur Squamous Epith Cells 1-5 /hpf (0-5/HPF) Urine Bacteria Occasional (0-1) (None) Ur Culture Indicated? Cult not indicated Urine Osmolality (.) mOsmol/kg Ur Random Sodium (30-90) mmol/L Urine Creatinine mg/dL CSF Tube Number CSF Volume CSF Appearance (Clear) CSF Color (Colorless) CSF WBC (0-5) MONO/uL CSF RBC RBC /uL CSF Mononuclear WBCs CSF Polynuclear WBCs CSF Glucose (40-70) mg/dL CSF Total Protein (12-60) mg/dL CSF C.neoform/gat PCR (Not Detect) CSF CMV DNA (PCR) (Not Detect) CSF Enterovirus (PCR) (Not Detect) CSF E. coli (PCR) (Not Detect) CSF H. influenzae (PCR) (Not Detect) CSF HSV I (PCR) (Not Detect) CSF HSV II (PCR) (Not Detect) CSF HHV 6 (PCR) (Not Detect) CSF L.monocytogenes PCR (Not Detect) CSF N. meningitidis PCR (Not Detect) CSF Parechovirus (PCR) (Not Detect) CSF S. agalactiae (PCR) (Not Detect) CSF S. pneumoniae (PCR) (Not Detect) CSF VZV (PCR) (Not Detecte) U Opiates 300ng/mL cut (Negative) Ur Oxycodone Screen (Negative) Urine Methadone Screen (Negative) Ur Barbiturates Screen (Negative) U Tricyclic Antidepress (Negative) Ur Phencyclidine Scrn (Negative) Ur Amphetamines Screen (Negative) U Methamphetamines Scrn (Negative) Ur MDMA Scrn (Ecstasy) (Negative) U Benzodiazepines Scrn (Negative) Urine Cocaine Screen (Negative) U Marijuana (THC) Screen (Negative) SARS-CoV-2 (PCR) (Negative) 07/21/21 07/21/21 07/21/21 Range/Units 01:30 01:30 03:10 WBC (4.5-11.0) X10^3/uL RBC (4.0-5.2) X10^6/uL Hgb (12.0-16.0) g/dL Hct (36-46) % MCV (80-100) fL MCH (26-34) PG MCHC (30-36) % RDW (11.6-14.8) % Plt Count (150-400) X10^3/uL Neut % (Auto) (50-75) % Lymph % (Auto) (25-40) % [place] % (Auto) (3-14) % Eos % (Auto) (2-4) % Baso % (Auto) (0-2) % Neut # (Auto) (8641-9146) /uL Lymph # (Auto) (2975-8179) /uL [place] # (Auto) (0-900) /uL Eos # (Auto) (0-450) /uL Baso # (Auto) (0-100) /uL Sodium (137-145) mmol/L Potassium (3.4-5.1) mmol/L Chloride (98-107) mmol/L Carbon Dioxide (22-32) mmol/L BUN (7-17) mg/dL Creatinine (0.52-1.04) mg/dL Estimated GFR (>60) mL/min BUN/Creatinine Ratio (6-22) Glucose (80-110) mg/dL Serum Osmolality (280-301) mOsmol/kg Calcium (8.4-10.2) mg/dL Total Bilirubin (0.2-1.3) mg/dL AST (14-36) IU/L ALT (<35) IU/L Alkaline Phosphatase (38-126) U/L Total Protein (6.3-8.2) g/dL Albumin (3.5-5.0) g/dL Globulin (1.7-4.1) g/dL Albumin/Globulin Ratio (1.0-2.8) TSH (0.47-4.68) uIU/mL Urine Color Urine Appearance Urine pH (4.5-8.0) Ur Specific [place] (1.000-1.035) Urine Protein (Negative) Urine Glucose (UA) (Negative) g/dL Urine Ketones (NEGATIVE) Urine Occult Blood (Negative) Urine Nitrate (Negative) Urine Bilirubin (NEGATIVE) Urine Urobilinogen (0.2) E.U./dL Ur Leukocyte Esterase (NEGATIVE) Urine RBC (0-5/HPF) Urine WBC (0-5/HPF) Ur Squamous Epith Cells (0-5/HPF) Urine Bacteria (None) Ur Culture Indicated? Urine Osmolality 117 (.) mOsmol/kg Ur Random Sodium (30-90) mmol/L Urine Creatinine mg/dL CSF Tube Number CSF Volume CSF Appearance (Clear) CSF Color (Colorless) CSF WBC (0-5) MONO/uL CSF RBC RBC /uL CSF Mononuclear WBCs CSF Polynuclear WBCs CSF Glucose 71 H (40-70) mg/dL CSF Total Protein 49 (12-60) mg/dL CSF C.neoform/gat PCR (Not Detect) CSF CMV DNA (PCR) (Not Detect) CSF Enterovirus (PCR) (Not Detect) CSF E. coli (PCR) (Not Detect) CSF H. influenzae (PCR) (Not Detect) CSF HSV I (PCR) (Not Detect) CSF HSV II (PCR) (Not Detect) CSF HHV 6 (PCR) (Not Detect) CSF L.monocytogenes PCR (Not Detect) CSF N. meningitidis PCR (Not Detect) CSF Parechovirus (PCR) (Not Detect) CSF S. agalactiae (PCR) (Not Detect) CSF S. pneumoniae (PCR) (Not Detect) CSF VZV (PCR) (Not Detecte) U Opiates 300ng/mL cut Negative (Negative) Ur Oxycodone Screen Negative (Negative) Urine Methadone Screen Negative (Negative) Ur Barbiturates Screen Negative (Negative) U Tricyclic Antidepress Positive H (Negative) Ur Phencyclidine Scrn Negative (Negative) Ur Amphetamines Screen Negative (Negative) U Methamphetamines Scrn Negative (Negative) Ur MDMA Scrn (Ecstasy) Negative (Negative) U Benzodiazepines Scrn Negative (Negative) Urine Cocaine Screen Negative (Negative) U Marijuana (THC) Screen Negative (Negative) SARS-CoV-2 (PCR) (Negative) 07/21/21 07/21/21 07/21/21 Range/Units 03:10 03:10 03:10 WBC (4.5-11.0) X10^3/uL RBC (4.0-5.2) X10^6/uL Hgb (12.0-16.0) g/dL Hct (36-46) % MCV (80-100) fL MCH (26-34) PG MCHC (30-36) % RDW (11.6-14.8) % Plt Count (150-400) X10^3/uL Neut % (Auto) (50-75) % Lymph % (Auto) (25-40) % [place] % (Auto) (3-14) % Eos % (Auto) (2-4) % Baso % (Auto) (0-2) % Neut # (Auto) (8745-7734) /uL Lymph # (Auto) (4580-4616) /uL [place] # (Auto) (0-900) /uL Eos # (Auto) (0-450) /uL Baso # (Auto) (0-100) /uL Sodium (137-145) mmol/L Potassium (3.4-5.1) mmol/L Chloride (98-107) mmol/L Carbon Dioxide (22-32) mmol/L BUN (7-17) mg/dL Creatinine (0.52-1.04) mg/dL Estimated GFR (>60) mL/min BUN/Creatinine Ratio (6-22) Glucose (80-110) mg/dL Serum Osmolality (280-301) mOsmol/kg Calcium (8.4-10.2) mg/dL Total Bilirubin (0.2-1.3) mg/dL AST (14-36) IU/L ALT (<35) IU/L Alkaline Phosphatase (38-126) U/L Total Protein (6.3-8.2) g/dL Albumin (3.5-5.0) g/dL Globulin (1.7-4.1) g/dL Albumin/Globulin Ratio (1.0-2.8) TSH (0.47-4.68) uIU/mL Urine Color Urine Appearance Urine pH (4.5-8.0) Ur Specific [place] (1.000-1.035) Urine Protein (Negative) Urine Glucose (UA) (Negative) g/dL Urine Ketones (NEGATIVE) Urine Occult Blood (Negative) Urine Nitrate (Negative) Urine Bilirubin (NEGATIVE) Urine Urobilinogen (0.2) E.U./dL Ur Leukocyte Esterase (NEGATIVE) Urine RBC (0-5/HPF) Urine WBC (0-5/HPF) Ur Squamous Epith Cells (0-5/HPF) Urine Bacteria (None) Ur Culture Indicated? Urine Osmolality (.) mOsmol/kg Ur Random Sodium (30-90) mmol/L Urine Creatinine mg/dL CSF Tube Number 1 4 CSF Volume 2.0 ml 3.0 ml CSF Appearance Slightly cloudy H Slightly cloudy H (Clear) CSF Color Red H [place] H (Colorless) CSF WBC 2 2 (0-5) MONO/uL CSF RBC 52382 3850 RBC /uL CSF Mononuclear WBCs TNP TNP CSF Polynuclear WBCs TNP TNP CSF Glucose (40-70) mg/dL CSF Total Protein (12-60) mg/dL CSF C.neoform/gat PCR Not detected (Not Detect) CSF CMV DNA (PCR) Not detected (Not Detect) CSF Enterovirus (PCR) Not detected (Not Detect) CSF E. coli (PCR) Not detected (Not Detect) CSF H. influenzae (PCR) Not detected (Not Detect) CSF HSV I (PCR) Not detected (Not Detect) CSF HSV II (PCR) Not detected (Not Detect) CSF HHV 6 (PCR) Not detected (Not Detect) CSF L.monocytogenes PCR Not detected (Not Detect) CSF N. meningitidis PCR Not detected (Not Detect) CSF Parechovirus (PCR) Not detected (Not Detect) CSF S. agalactiae (PCR) Not detected (Not Detect) CSF S. pneumoniae (PCR) Not detected (Not Detect) CSF VZV (PCR) Not detected (Not Detecte) U Opiates 300ng/mL cut (Negative) Ur Oxycodone Screen (Negative) Urine Methadone Screen (Negative) Ur Barbiturates Screen (Negative) U Tricyclic Antidepress (Negative) Ur Phencyclidine Scrn (Negative) Ur Amphetamines Screen (Negative) U Methamphetamines Scrn (Negative) Ur MDMA Scrn (Ecstasy) (Negative) U Benzodiazepines Scrn (Negative) Urine Cocaine Screen (Negative) U Marijuana (THC) Screen (Negative) SARS-CoV-2 (PCR) (Negative) 07/21/21 07/21/21 07/21/21 Range/Units 08:00 23:45 23:45 WBC (4.5-11.0) X10^3/uL RBC (4.0-5.2) X10^6/uL Hgb (12.0-16.0) g/dL Hct (36-46) % MCV (80-100) fL MCH (26-34) PG MCHC (30-36) % RDW (11.6-14.8) % Plt Count (150-400) X10^3/uL Neut % (Auto) (50-75) % Lymph % (Auto) (25-40) % [place] % (Auto) (3-14) % Eos % (Auto) (2-4) % Baso % (Auto) (0-2) % Neut # (Auto) (8728-0298) /uL Lymph # (Auto) (4643-3237) /uL [place] # (Auto) (0-900) /uL Eos # (Auto) (0-450) /uL Baso # (Auto) (0-100) /uL Sodium (137-145) mmol/L Potassium (3.4-5.1) mmol/L Chloride (98-107) mmol/L Carbon Dioxide (22-32) mmol/L BUN (7-17) mg/dL Creatinine (0.52-1.04) mg/dL Estimated GFR (>60) mL/min BUN/Creatinine Ratio (6-22) Glucose (80-110) mg/dL Serum Osmolality (280-301) mOsmol/kg Calcium (8.4-10.2) mg/dL Total Bilirubin (0.2-1.3) mg/dL AST (14-36) IU/L ALT (<35) IU/L Alkaline Phosphatase (38-126) U/L Total Protein (6.3-8.2) g/dL Albumin (3.5-5.0) g/dL Globulin (1.7-4.1) g/dL Albumin/Globulin Ratio (1.0-2.8) TSH 1.82 D (0.47-4.68) uIU/mL Urine Color Urine Appearance Urine pH (4.5-8.0) Ur Specific [place] (1.000-1.035) Urine Protein (Negative) Urine Glucose (UA) (Negative) g/dL Urine Ketones (NEGATIVE) Urine Occult Blood (Negative) Urine Nitrate (Negative) Urine Bilirubin (NEGATIVE) Urine Urobilinogen (0.2) E.U./dL Ur Leukocyte Esterase (NEGATIVE) Urine RBC (0-5/HPF) Urine WBC (0-5/HPF) Ur Squamous Epith Cells (0-5/HPF) Urine Bacteria (None) Ur Culture Indicated? Urine Osmolality (.) mOsmol/kg Ur Random Sodium 12 L (30-90) mmol/L Urine Creatinine 44.8 mg/dL CSF Tube Number CSF Volume CSF Appearance (Clear) CSF Color (Colorless) CSF WBC (0-5) MONO/uL CSF RBC RBC /uL CSF Mononuclear WBCs CSF Polynuclear WBCs CSF Glucose (40-70) mg/dL CSF Total Protein (12-60) mg/dL CSF C.neoform/gat PCR (Not Detect) CSF CMV DNA (PCR) (Not Detect) CSF Enterovirus (PCR) (Not Detect) CSF E. coli (PCR) (Not Detect) CSF H. influenzae (PCR) (Not Detect) CSF HSV I (PCR) (Not Detect) CSF HSV II (PCR) (Not Detect) CSF HHV 6 (PCR) (Not Detect) CSF L.monocytogenes PCR (Not Detect) CSF N. meningitidis PCR (Not Detect) CSF Parechovirus (PCR) (Not Detect) CSF S. agalactiae (PCR) (Not Detect) CSF S. pneumoniae (PCR) (Not Detect) CSF VZV (PCR) (Not Detecte) U Opiates 300ng/mL cut (Negative) Ur Oxycodone Screen (Negative) Urine Methadone Screen (Negative) Ur Barbiturates Screen (Negative) U Tricyclic Antidepress (Negative) Ur Phencyclidine Scrn (Negative) Ur Amphetamines Screen (Negative) U Methamphetamines Scrn (Negative) Ur MDMA Scrn (Ecstasy) (Negative) U Benzodiazepines Scrn (Negative) Urine Cocaine Screen (Negative) U Marijuana (THC) Screen (Negative) SARS-CoV-2 (PCR) Negative (Negative) 07/21/21 Range/Units 23:45 WBC (4.5-11.0) X10^3/uL RBC (4.0-5.2) X10^6/uL Hgb (12.0-16.0) g/dL Hct (36-46) % MCV (80-100) fL MCH (26-34) PG MCHC (30-36) % RDW (11.6-14.8) % Plt Count (150-400) X10^3/uL Neut % (Auto) (50-75) % Lymph % (Auto) (25-40) % [place] % (Auto) (3-14) % Eos % (Auto) (2-4) % Baso % (Auto) (0-2) % Neut # (Auto) (7904-6140) /uL Lymph # (Auto) (6432-2510) /uL [place] # (Auto) (0-900) /uL Eos # (Auto) (0-450) /uL Baso # (Auto) (0-100) /uL Sodium (137-145) mmol/L Potassium (3.4-5.1) mmol/L Chloride (98-107) mmol/L Carbon Dioxide (22-32) mmol/L BUN (7-17) mg/dL Creatinine (0.52-1.04) mg/dL Estimated GFR (>60) mL/min BUN/Creatinine Ratio (6-22) Glucose (80-110) mg/dL Serum Osmolality 275 L (280-301) mOsmol/kg Calcium (8.4-10.2) mg/dL Total Bilirubin (0.2-1.3) mg/dL AST (14-36) IU/L ALT (<35) IU/L Alkaline Phosphatase (38-126) U/L Total Protein (6.3-8.2) g/dL Albumin (3.5-5.0) g/dL Globulin (1.7-4.1) g/dL Albumin/Globulin Ratio (1.0-2.8) TSH (0.47-4.68) uIU/mL Urine Color Urine Appearance Urine pH (4.5-8.0) Ur Specific [place] (1.000-1.035) Urine Protein (Negative) Urine Glucose (UA) (Negative) g/dL Urine Ketones (NEGATIVE) Urine Occult Blood (Negative) Urine Nitrate (Negative) Urine Bilirubin (NEGATIVE) Urine Urobilinogen (0.2) E.U./dL Ur Leukocyte Esterase (NEGATIVE) Urine RBC (0-5/HPF) Urine WBC (0-5/HPF) Ur Squamous Epith Cells (0-5/HPF) Urine Bacteria (None) Ur Culture Indicated? Urine Osmolality (.) mOsmol/kg Ur Random Sodium (30-90) mmol/L Urine Creatinine mg/dL CSF Tube Number CSF Volume CSF Appearance (Clear) CSF Color (Colorless) CSF WBC (0-5) MONO/uL CSF RBC RBC /uL CSF Mononuclear WBCs CSF Polynuclear WBCs CSF Glucose (40-70) mg/dL CSF Total Protein (12-60) mg/dL CSF C.neoform/gat PCR (Not Detect) CSF CMV DNA (PCR) (Not Detect) CSF Enterovirus (PCR) (Not Detect) CSF E. coli (PCR) (Not Detect) CSF H. influenzae (PCR) (Not Detect) CSF HSV I (PCR) (Not Detect) CSF HSV II (PCR) (Not Detect) CSF HHV 6 (PCR) (Not Detect) CSF L.monocytogenes PCR (Not Detect) CSF N. meningitidis PCR (Not Detect) CSF Parechovirus (PCR) (Not Detect) CSF S. agalactiae (PCR) (Not Detect) CSF S. pneumoniae (PCR) (Not Detect) CSF VZV (PCR) (Not Detecte) U Opiates 300ng/mL cut (Negative) Ur Oxycodone Screen (Negative) Urine Methadone Screen (Negative) Ur Barbiturates Screen (Negative) U Tricyclic Antidepress (Negative) Ur Phencyclidine Scrn (Negative) Ur Amphetamines Screen (Negative) U Methamphetamines Scrn (Negative) Ur MDMA Scrn (Ecstasy) (Negative) U Benzodiazepines Scrn (Negative) Urine Cocaine Screen (Negative) U Marijuana (THC) Screen (Negative) SARS-CoV-2 (PCR) (Negative) MDM Narrative Medical decision making narrative: 71-year-old woman with worsening confusion over the last number of days since recent hospitalization for confusion and hyponatremia. With prior hospitalization she had a fairly marked leukocytosis that has now resolved. She is not currently hyponatremic. Thyroid was recently checked and was unremarkable. On July 13 she had chest x-ray and abdominal CT that were both unremarkable. There have been no changes to medications. Slightly concerning episodes of urinary incontinence with spinal tenderness with head flexion. Possibility of meningitis is entertained however she is afebrile, has no headache and no leukocytosis. With gait instability in the urinary incontinence along with confusion possibility of normal pressure hydrocephalus is also entertained. With her acute confusion at this time the CT scan is ordered urine is sent for further evaluation. Lumbar puncture was performed with significant difficulty. Prior to lumbar puncture we did do a walking trial that was videotaped, she required 5 steps to turn 180? and used a wide-based unstable gait. LP does not look like meningitis or infection. Findings are continuing to be resulted. A total of 35 cc of CSF was removed. 5am patient is still somewhat sedated from the ketamine and significantly fatigued. At this point comparison gait and turning is not quite appropriate. She needs to metabolize the ketamine a bit more. Note she has gotten up to the bathroom and having large volume urine output multiple times, anywhere from every 10-30 minutes. Urinalysis does not suggest urinary tract infection. She continues to complain of being significantly thirsty and is continuing to drink and request quite a bit of water. This may be the behavioral finding and consequence that led to her admission with hyponatremia previously. At this time there is no evidence of sepsis, urinary tract infection, urinary retention, acute stroke, meningitis, acute hyponatremia. She does have continued confusion, abnormal gait and increased urinary frequency with new urinary incontinence. At this time she is too confused and unsteady to return home. I remain concerned about normal pressure hydrocephalus. And beginning to look for bed availability I believe she could benefit from a facility with inpatient neuro consultation and if she is determined to truly have normal pressure hydrocephalus neurosurgery to consider shunt placement. One she has sobered a bit after her ketamine dosage it will be interesting to see if the 35 cc of spinal fluid removed has had any clinical improvement with her overall symptoms. Beds may be available after change of shift this morning at [facility]. No bed availability at [facility]. Will continue to observe her here in the emergency department, will anticipate brain MRI later this morning. She may need additional sedation to be able to do the complete MRI. 645 am discussion wit [facility] transfer center. Bed may be available after change of shift. Basic outline of care reviewed Care is transferred to Dr. Melendez at change of shift 0700 - Patient received in sign-out from Dr. Freedman. I have reviewed clinical course to this point and performed An independent history and physical exam. 0830 - patient continues to rest comfortably, preparing for MRI. Confusion is improved, ambulation is improved patient with extensive recent medical history though reassuring history and physical exam. She has had extensive workup multiple diagnoses considered including but not limited to subarachnoid hemorrhage versus normal pressure hydrocephalus versus encephalitis versus other. She had impressive improvement of symptoms after above-stated therapies. Imaging is very reassuring. Consultation with Neurology would suggest against any need for inpatient workup or transfer. Recommend close follow-up with urgent referral. Patient given extensive return precautions and questions answered to her apparent satisfaction. <Rohit Melendez, DO - Last Filed: 07/21/21 19:55> Critical Care Time Critical Care Time: Yes Total Critical Care Time: 60 Attestation: The high probability of a clinically significant, sudden or life threatening deterioration of the [NV] system(s) required my full and direct attention, intervention and personal management. The aggregate critical care time was [60] minutes. This time is in addition to time spent performing reported procedures but includes the following: [x] Data Review and interpretation [x] Patient assessment and monitoring of vital signs [x] Documentation [x] Medication orders and management Discharge Plan Departure Patient Disposition: Home Clinical Impression: Acute confusion, Gait instability, Urinary incontinence, Urinary frequency Activity Restrictions/Additional Instructions: *You have been diagnosed with [gait disturbance with improved confusion. As we discussed at length you have a very reassuring history, physical exam, labs, imaging and response to therapies. There is no indication of stroke, meningitis, normal pressure hydrocephalus, hyponatremia or other diagnosis that would require immediate intervention *What to do: *Please continue to take your regular medications as directed. [ ] New medication prescriptions sent to your pharmacy: [ ] [ ] New medication written as a paper prescription [x ] No new medications given *Please follow up with your primary care provider in 2-3 days, call for an appointment. Let them know you were seen in the Emergency Department and that we ask that you be seen in follow up. We will electronically transmit a record of today's note if your PCP is in our system * as we discussed, I have been in contact with Dr. Rai (neurology at [facility] and telling him). We discussed your case at length and though you do not need transfer or admission he does agree that an urgent outpatient follow-up is indicated. He requests that your primary care provider submitted a referral. Additionally, he took her contact information down. His office phone number is [phone] *If you do not have a primary care provider please contact the [facility] Resource line at [phone]. They will ask some questions about your medical history and help get you set up with a doctor in the community. *Return to Emergency Department if you should have any new, worsening or concerning symptoms, such as [fever greater than 101 F, shaking chills, worsening pain, persistent vomiting or other bothersome symptoms] Prescriptions: No Action levothyroxine 75 mcg Tablet 50 mcg PO DAILY 0RF amlodipine 10 mg Tablet 10 mg PO DAILY 0RF quetiapine 50 mg Tablet 50 mg PO BID 0RF duloxetine 60 mg Capsule, Delayed Rel Sprinkle 60 mg PO DAILY 0RF quetiapine 300 mg Tablet 300 mg PO BEDTIME 0RF
[2021-07-20 23:45] VITALS: PULSE 102; RESP 19
[2021-07-20 23:46] VITALS: BP 121/56; PULSE 100; RESP 18; O2SAT 94
--- NOTE | 2021-07-20 23:50 | PC.NURSE ---
Pt's sats dip to mid 80's while asleep so placed on 2lnc
--- NOTE | 2021-07-20 23:50 | PC.NURSE ---
Pt was discharged recently for low NA. Pt's states that pt is more confused, malaise, back pain.
[2021-07-21] VITALS (25 sets, daily range): BP systolic 111–155; BP diastolic 56–79; PULSE 87–129; RESP 13–28; O2SAT 89–100
[2021-07-21 00:20] LABS: Add Manual Diff / Slide Review NO; Basophils Absolute Auto 100 /uL (0-100); Basophils Percent Auto 0.7 % (0-2); Eosinophils Absolute Auto 400 /uL (0-450); Eosinophils Percent Auto 4.5 % (2-4); Hematocrit 30.8 % (36-46); Hemoglobin 10.6 g/dL (12.0-16.0); Lymphocytes Absolute Auto 1200 /uL (1100-4500); Lymphocytes Percent Auto 13.2 % (25-40); Mean Corpuscular HGB Conc 34.5 % (30-36); Mean Corpuscular Hemoglobin 29.6 PG (26-34); Mean Corpuscular Volume 85.7 fL (80-100); Monocytes Absolute Auto 900 /uL (0-900); Monocytes Percent Auto 10.6 % (3-14); Neutrophils Absolute Auto 6400 /uL (1500-7000); Platelet Count 341 X10^3/uL (150-400); Red Cell Distribution Width 12.7 % (11.6-14.8)
[2021-07-21 00:27] LABS: Alanine Aminotransferase 21 IU/L (<35); Albumin 4.1 g/dL (3.5-5.0); Albumin Globulin Ratio 1.2 (1.0-2.8); Alkaline Phosphatase 105 U/L (38-126); Aspartate Aminotransferase 30 IU/L (14-36); BUN Creatinine Ratio 10.2 (6-22); Bilirubin Total 0.4 mg/dL (0.2-1.3); Blood Urea Nitrogen 12 mg/dL (7-17); Calcium 9.3 mg/dL (8.4-10.2); Carbon Dioxide 23 mmol/L (22-32); Chloride 100 mmol/L (98-107); Estimated Glomerular Filt Rate 45.2 mL/min (>60); Globulin 3.4 g/dL (1.7-4.1); Glucose 125 mg/dL (80-110); HEMOLYSIS 27 (0-50); Potassium 3.5 mmol/L (3.4-5.1); Sodium 132 mmol/L (137-145); Total Protein 7.5 g/dL (6.3-8.2)
[2021-07-21 01:42] LABS: Appearance Urine UA CLEAR; Bilirubin Urine UA NEGATIVE (NEGATIVE); Color Urine UA YELLOW; Glucose Urine UA NEGATIVE (Negative); Ketones Urine UA NEGATIVE (NEGATIVE); Leukocyte Esterase Urine UA NEGATIVE (NEGATIVE); Nitrite Urine UA NEGATIVE (Negative); Occult Blood Urine UA 1+ (Negative); Protein Urine UA NEGATIVE (Negative); Specific Gravity Urine UA <=1.005 (1.000-1.035); Urobilinogen Urine UA 0.2 E.U./dL (0.2)
[2021-07-21 01:45] LABS: Bacteria Urine Occasional (0-1); Culture Indicated Urine Cult Not Indicated; RBC Urine 0-1/HPF (0-5/HPF); Squamous Epithelial Cell Urine 1-5 /HPF (0-5/HPF); WBC Urine 0-1/HPF (0-5/HPF)
--- NOTE | 2021-07-21 01:50 | DI.CT.S_ITS ---
PROCEDURE: CT HEAD/BRAIN WO CON INDICATIONS: confusion, gait disturbance, urniary incontincence TECHNIQUE: Noncontrast 4.5 mm thick angled axial sections acquired from the foramen magnum to the vertex, with coronal and sagittal reformats. For radiation dose reduction, the following was used: automated exposure control, adjustment of mA and/or kV according to patient size. COMPARISON: None. FINDINGS: Image quality: Excellent. CSF spaces: Basal cisterns are patent. No extra-axial fluid collections. The ventricles are symmetric in size and shape. Brain: Small remote right cerebellar lacunar infarct. No intracranial bleeds or masses. There is cerebral volume loss for age, with resultant ventricular and sulcal prominence. There are periventricular and deep white matter chronic small vessel ischemic changes. There is intracranial internal carotid artery atherosclerosis. Skull and face: Calvarium and visualized facial bones appear intact, without suspicious lesions. Sinuses: Visualized sinuses and mastoids are clear. IMPRESSION: No acute intracranial abnormality. No significant change from preliminary report. Dictated by: Iban Galo M.D. on 07/21/2021 at 8:12 Approved by: Iban Galo M.D. on 07/21/2021 at 8:13
--- NOTE | 2021-07-21 03:29 | PC.NURSE ---
She wAs given 200 mg iv ketamine to help her relax during spinal tap,tap was successfull,she dropped her oxygen saturation briefly but her saturation responded quicklly to repositioning in a sitting position and oxygen by cannula at 3 l per min. applied.She is now sitting in a 45 degree position on [facility] and talking with respiratory therapist.
[2021-07-21] MEDS: KETAMINE 500 MG/5 ML INJ (03:44)
[2021-07-21 04:11] LABS: Glucose CSF 71 mg/dL (40-70); Total Protein CSF 49 mg/dL (12-60)
[2021-07-21 04:14] LABS: CSF Tube Number 1; CSF Tube Volume 2.0 mL
[2021-07-21 04:15] LABS: Appearance CSF Slightly Cloudy (Clear); Color CSF Red (Colorless); Red Blood Cell CSF 14950 RBC /uL; White Blood Cell CSF 2 MONO/uL (0-5)
[2021-07-21] MEDS: ONDANSETRON 4 MG/2 ML INJ IV (04:16)
[2021-07-21] MEDS: SODIUM CHLORIDE 0.9% 1,000 ML 1000 ML IV (04:17)
[2021-07-21 04:48] LABS: CSF Tube Number 4
[2021-07-21 04:49] LABS: Appearance CSF Slightly Cloudy (Clear); CSF Tube Volume 3.0 mL; Color CSF Pink (Colorless); Red Blood Cell CSF 3850 RBC /uL; White Blood Cell CSF 2 MONO/uL (0-5)
--- NOTE | 2021-07-21 05:11 | DI.MRI.S_ITS ---
PROCEDURE: MR HEAD/BRAIN WO/W CON INDICATIONS: confusion, ataxia, incontinence. ? Normal pressure hydrocehp TECHNIQUE: Noncontrast axial T1 spin echo, axial T2 fast spin echo, sagittal and axial FLAIR, coronal T2 fast spin echo, axial gradient echo, axial diffusion and ADC through the brain. After the administration of contrast, axial and coronal T1 spin echo with fat saturation through the brain. COMPARISON: [facility], CT, CT HEAD/BRAIN WO CON, 07/21/2021, 1:56. FINDINGS: Image quality: Excellent. CSF spaces: Basal cisterns are patent. No extra-axial fluid collections. Ventricles are normal in size and shape. Brain: No midline shift. No intracranial bleeds or masses. No abnormal intracranial enhancement. There is cerebral volume loss for age. There is mild, age-appropriate periventricular white matter chronic small vessel ischemic change. The brainstem appears normal. Diffusion-weighted images demonstrate no acute ischemic insults. Small old focal right inferior cerebellar lacunar infarction. Normal intravascular flow voids are present. Skull and face: Calvarial marrow is normal in signal. Orbits appear normal. Sinuses: Sinuses and mastoids appear clear. IMPRESSION: 1. Age-related volume loss and mild, age-appropriate small-vessel ischemic change. Old small focal right inferior cerebellar lacunar infarction. 2. No evidence acute stroke, hemorrhage, or mass. Dictated by: Moises Addison M.D. on 07/21/2021 at 10:02 Approved by: Moises Addison M.D. on 07/21/2021 at 10:14
[2021-07-21 05:20] LABS: Cryptococcus neoformans/gattii Not Detected (Not Detect); Enterovirus Not Detected (Not Detect); Escherichia coli K1 Not Detected (Not Detect); Haemophilus influenzae Not Detected (Not Detect); Herpes simplex virus 1 Not Detected (Not Detect); Herpes simplex virus 2 Not Detected (Not Detect); Human herpesvirus 6 Not Detected (Not Detect); Human parechovirus Not Detected (Not Detect); Listeria monocytogenes Not Detected (Not Detect); Neisseria meningitidis Not Detected (Not Detect); Streptococcus agalactiae Not Detected (Not Detect); Streptococcus pneumoniae Not Detected (Not Detect); Varicella Zoster Virus Not Detected (Not Detecte)
--- NOTE | 2021-07-21 05:51 | PC.NURSE ---
DR catherine gave verbal order to give 200 mg ketamine during spinal tap for relaxation.
[2021-07-21 06:21] LABS: UR Morphine/Opiate cutoff 300 Negative (Negative); Ur Creatinine Normal (Normal); Ur Specific Gravity Normal (Normal); Urine Amphetamines Negative (Negative); Urine Barbiturates Negative (Negative); Urine Benzodiazepines Negative (Negative); Urine Cocaine Negative (Negative); Urine MDMA Negative (Negative); Urine Methadone Negative (Negative); Urine Methamphetamines Negative (Negative); Urine Oxycodone Negative (Negative); Urine Phencyclidine Negative (Negative); Urine Tetrahydrocannabinol Negative (Negative); Urine Tricyclic Antidepressant Positive (Negative); Urine pH Normal (Normal)
[2021-07-21 07:44] LABS: Creatinine Urine Random 44.8 mg/dL; Sodium Urine Random 12 mmol/L (30-90)
[2021-07-21 08:14] LABS: TSH w/ Reflex to FT4 1.82 uIU/mL (0.47-4.68)
[2021-07-21 08:18] LABS: COVID19 -Nasal RAPID Negative (Negative)
[2021-07-24 15:50] LABS: Osmolality, Serum 275 mOsmol/kg (280-301)
[2021-07-24 17:10] LABS: Osmolality Urine 117 mOsmol/kg (.)
== END 2021-07-21 12:27 | disposition home or self-care (01) ==
PROVIDERS: Emergency Medicine; Emergency Provider Emergency Medicine
DX: R41.0 Disorientation, unspecified (principal); R26.89 Other abnormalities of gait and mobility; R32 Unspecified urinary incontinence; R35.0 Frequency of micturition; R09.02 Hypoxemia; Z20.822 Contact with and (suspected) exposure to COVID-19
CPT/HCPCS: 36415; 62270; 70450; 70553; 80053; 80305; 81001; 82570; 82945; 83930; 83935; 84157; 84300; 84443; 85025; 87070; 87205; 87635; 87798; 89051; 96361; 96374; 99285; 99291; C9803; J2405

== ENCOUNTER 2021-08-27 06:37 | Emergency (ER) | payer MEDICARE, SELFPAY ==
[2021-07-13 05:37] VITALS: BMI 28.6
[2021-08-27 07:03] VITALS: BP 175/86; PULSE 110; RESP 18; TEMP 36.8; O2SAT 97; BMI 25.4
--- NOTE | 2021-08-27 07:04 | ED.GENADULT ---
HPI - General Adult General Chief complaint: Nausea/Vomiting/Diarrhea Stated complaint: vomiting/abd pain x4 days Time Seen by Provider: 08/27/21 06:45 History of Present Illness HPI narrative: 71-year-old woman with a history of hypothyroidism, bipolar disorder, aerophagia with increased anxiety which then causes abdominal pain and dramatic increase in eructation and flatulence. She notes that she has been increasingly anxious over the last week has been swallowing more air has been having more your occasion and reports multiple episodes of emesis. She finds that if she is up and moving that her nausea seems better controlled. What she is describing as emesis is recurrent episodes of eructation with minimal gastric contents and no significant dry heaving. She does not report constipation diarrhea. She states that her abdomen does hurt because he gets so distended. She describes no fevers, cough, palpitations, headache. She does complain of bilateral knee pain that has gotten worse because she has been up and moving so much to try to deal with the nausea of the last week. The arthritis knee pain has been an ongoing issue and she reportedly has follow-up appointment scheduled with a theater manager. Related Data Home Medications Medication Instructions Recorded Confirmed amlodipine 10 mg tablet 10 mg PO DAILY 03/06/20 07/13/21 duloxetine 60 mg capsule,delayed 60 mg PO DAILY 03/06/20 07/13/21 release sprinkle levothyroxine 75 mcg tablet 50 mcg PO DAILY 03/06/20 07/13/21 quetiapine 50 mg tablet 50 mg PO BID 03/06/20 07/13/21 quetiapine 300 mg tablet 300 mg PO BEDTIME 07/13/21 07/13/21 Previous Rx's Medication Instructions Recorded haloperidol 2 mg tablet 2 mg PO DAILY #30 tab 08/27/21 meloxicam 15 mg tablet 15 mg PO DAILY #30 tab 08/27/21 metoclopramide HCl 10 mg tablet 10 mg PO Q6H PRN #14 tab 08/27/21 (Reglan) Allergies Allergy/AdvReac Type Severity Reaction Status Date / Time Sulfa (Sulfonamide Allergy Unknown Verified 07/20/21 23:19 Antibiotics) desipramine Allergy Rash Verified 07/20/21 23:19 Review of Systems Review of Systems Narrative: Remainder of complete review of systems is otherwise unremarkable except for that included in the HPI. Patient History Medical History (Updated 08/27/21 @ 10:18 by Elda Freedman MD) Bipolar disorder Eczema Hypertension Hypothyroidism (acquired) Surgical History Hx of cholecystectomy Social History household members: spouse Smoking Status: Never smoker alcohol intake: former Smoking Status: Never smoker Substance Use Type: does not use Exam Initial Vital Signs Initial Vital Signs: Vital Signs Temperature 98.3 F 08/27/21 07:03 Pulse Rate 110 H 08/27/21 07:03 Respiratory Rate 18 08/27/21 07:03 Blood Pressure 175/86 H 08/27/21 07:03 Pulse Oximetry 97 08/27/21 07:03 General: Chronically ill-appearing but in no acute distress. Dramatic affective behavior with recurrent episodes of eructation and near emesis HEENT: Moist mucous membranes, normal sclera with reactive pupils, Respiratory: Lungs are clear to auscultation, no wheezing no rales no rhonchi. Full and symmetrical air movement Cardiac: Regular rate and rhythm no murmurs no bruits Abdomen: Soft, mild distention and mild diffuse tenderness without rebound or guarding good bowel tones, no flank pain Skin: Warm and dry, no rashes Neurologic: Grossly neurologically intact with no obvious asymmetries or abnormalities Extremities: No trauma, well perfused Psych: Cooperative, tangential, nonpressured without evidence of response to internal stimuli Course Orders Ordered: Discontinued Medications Haloperidol (Haloperidol 5 Mg/Ml Vial) 2 mg IV NOW ONE Stop: 08/27/21 10:13 Last Admin: 08/27/21 10:20 Dose: 2 mg Documented by: YANG Sodium Chloride (Normal Saline 0.9%) 1,000 mls @ 1,000 mls/hr IV BOLUS ONE Stop: 08/27/21 08:23 Last Infusion: 08/27/21 10:58 Dose: 0 mls/hr Documented by: Admin: 08/27/21 08:05 Dose: 1,000 mls/hr Documented by: YANG Meloxicam (Meloxicam 7.5 Mg Tablet) 15 mg PO NOW ONE Stop: 08/27/21 10:13 Last Admin: 08/27/21 10:27 Dose: 15 mg Documented by: YANG Metoclopramide HCl (Metoclopramide 10 Mg/2 Ml Inj) 10 mg IV NOW ONE Stop: 08/27/21 07:25 Last Admin: 08/27/21 08:05 Dose: 10 mg Documented by: YANG Vital Signs Vital signs: Vital Signs - 8 hr 08/27/21 11:36 Pulse Rate 103 H Blood Pressure 175/78 H Pulse Oximetry 97 Medical Decision Making Lab Data Result diagrams: 08/27/21 08:06 08/27/21 08:06 Labs: Lab Results 08/27/21 08/27/21 Range/Units 08:06 08:06 WBC 12.4 H (4.5-11.0) X10^3/uL RBC 4.08 (4.0-5.2) X10^6/uL Hgb 11.8 L (12.0-16.0) g/dL Hct 34.4 L (36-46) % MCV 84.4 (80-100) fL MCH 29.0 (26-34) PG MCHC 34.4 (30-36) % RDW 14.2 (11.6-14.8) % Plt Count 382 (150-400) X10^3/uL Neut % (Auto) 71.8 (50-75) % Lymph % (Auto) 19.7 L (25-40) % Marin % (Auto) 5.5 (3-14) % Eos % (Auto) 1.8 L (2-4) % Baso % (Auto) 1.2 (0-2) % Neut # (Auto) 8900 H (2144-1358) /uL Lymph # (Auto) 2400 (7208-9745) /uL Marin # (Auto) 700 (0-900) /uL Eos # (Auto) 200 (0-450) /uL Baso # (Auto) 200 H (0-100) /uL Sodium 132 L (137-145) mmol/L Potassium 3.6 (3.4-5.1) mmol/L Chloride 97 L (98-107) mmol/L Carbon Dioxide 22 (22-32) mmol/L BUN 12 (7-17) mg/dL Creatinine 0.92 (0.52-1.04) mg/dL Estimated GFR > 60 (>60) mL/min BUN/Creatinine Ratio 13.0 (6-22) Glucose 111 H (80-110) mg/dL Calcium 9.7 (8.4-10.2) mg/dL Total Bilirubin 0.4 (0.2-1.3) mg/dL AST 30 (14-36) IU/L ALT 23 (<35) IU/L Alkaline Phosphatase 130 H (38-126) U/L Total Protein 9.0 H (6.3-8.2) g/dL Albumin 5.1 H (3.5-5.0) g/dL Globulin 3.9 (1.7-4.1) g/dL Albumin/Globulin Ratio 1.3 (1.0-2.8) Lipase 55 (23-300) U/L Imaging Data Chest x-ray: Radiologist's Impression: FINDINGS:? ? Surgical changes and devices:? Surgical clips noted in the right upper quadrant and midline pelvis, unchanged. ? Chest:? Hyperinflation and chronic interstitial changes present.? No acute infiltrate, pneumothorax or pleural effusion. ? Abdomen:? Bowel gas pattern is normal.? No suspicious calcifications.? Visualized solid organ contours appear normal.? ? Bones:? No suspicious bony lesions.? ? IMPRESSION:? ? Hyperinflation and chronic interstitial changes Nonobstructive bowel gas pattern. ? ? ? Approved by: Timi Munoz M.D. on 08/27/2021 at 7:35? [facility] Narrative Medical decision making narrative: 71-year-old lady with bipolar disorder and increasing anxiety over the last week. Neither she nor her feel that she is acutely manic and clinically I agree however she may well be hypomanic. She has not been sleeping well she states she has been taking her medications as prescribed. When she gets anxious she has significantly increased aerophagia and then has significant eructation which makes her more anxious which then gives her a dry mouth which then causes her to drink more and more water to the point of polydipsia and psychogenic hyponatremia. She does not have a dramatically distended stomach and has no for her bowel obstruction appreciated on x-ray. She has only mild hyponatremia at 132. There is a mild elevation in alkaline phosphatase however bilirubin AST and ALT are all within normal limits. No evidence of overt infection. At this time, I think the majority of her symptoms are related to her increased anxiety and hypomania. She apparently has an appointment with a new psychiatrist in approximately a week. She feels that none of her doctors are providers are able to hear what she actually needs. With our discussion today she has very fixed ideas of what she needs, does not need and is not particularly open to additional suggestions beyond her fixed expectations. 10 a.m.. She is re-evaluated. She is to be doing better. She continues to ask for help with her arthritis pain. She states that tramadol does not work she would like narcotics which seems like a poor choice given her psychiatric concerns and chronic pain. She states that she uses 600 mg of ibuprofen once a day and it does help when she takes it however she has a distant history of GI bleeding so tries not for to take more than that. Tylenol is not very effective for her. Suggested that she try meloxicam daily and see if this might be more effective overall for her. She does understand that she would need to stop ibuprofen while taking meloxicam. Regarding her increased anxiety, poor sleep over the last week, probable hypomania we discussed the use of 2 mg of Haldol both to help with her nausea but also help to ?calm her mind?. She liked that analogy very much and was very much willing to give this a try. She is given 2 mg IV in the emergency department so that she can be aware of any adverse reactions prior to a prescription going home and also so that she can feel safe taking it at home. 1130 she has had a very nice response to the Haldol. Anxiety is less, nausea is less and her airophagia/eructation is also significantly improved. Discharge Plan Departure Patient Disposition: Home Clinical Impression: Aerophagia, Hypomania, Arthritis pain Activity Restrictions/Additional Instructions: Thank you for coming in today Your blood work and x-rays were very reassuring Regarding your difficulty sleeping this last week, increased anxiety causing the increased air swallowing I am going to suggest that we add 2 mg of Haldol to all of your usual medications 1st thing in the morning. This is an antipsychotic and can help slow your brain a bit so that you are able to function better and hopefully get some sleep. It also is a very good anti nausea medication. With your arthritis chronic pain, I am going to suggest you try meloxicam once daily. This is close enough to ibuprofen that I do not want she taking any ibuprofen, Motrin, Aleve or other nonsteroidals while you are taking meloxicam. This is not a ?cure?. This is just another medication that can help you manage your chronic arthritis pain. If you are still having nausea after all of these medications, you can try metoclopramide. Prescriptions for all of these medications have been electronically transmitted to [facility]. Please follow-up with both her primary care doctor as well as your therapist. If your finding these medications affective, your primary care doctor and therapist will need to continue the prescriptions Prescriptions: New haloperidol 2 mg tablet 2 mg PO DAILY Qty: 30 0RF meloxicam 15 mg tablet 15 mg PO DAILY Qty: 30 0RF metoclopramide HCl [Reglan] 10 mg tablet 10 mg PO Q6H PRN (Reason: nausea and vomiting) Qty: 14 0RF No Action levothyroxine 75 mcg Tablet 50 mcg PO DAILY 0RF amlodipine 10 mg Tablet 10 mg PO DAILY 0RF quetiapine 50 mg Tablet 50 mg PO BID 0RF duloxetine 60 mg Capsule, Delayed Rel Sprinkle 60 mg PO DAILY 0RF quetiapine 300 mg Tablet 300 mg PO BEDTIME 0RF
--- NOTE | 2021-08-27 07:24 | DI.RAD.S_ITS ---
PROCEDURE: XR ACUTE ABDOMEN SERIES INDICATIONS: abdominal pain TECHNIQUE: One view chest and two views of the abdomen were acquired. COMPARISON: [facility], , XR ACUTE ABDOMEN SERIES, 07/13/2021, 3:34. FINDINGS: Surgical changes and devices: Surgical clips noted in the right upper quadrant and midline pelvis, unchanged. Chest: Hyperinflation and chronic interstitial changes present. No acute infiltrate, pneumothorax or pleural effusion. Abdomen: Bowel gas pattern is normal. No suspicious calcifications. Visualized solid organ contours appear normal. Bones: No suspicious bony lesions. IMPRESSION: Hyperinflation and chronic interstitial changes Nonobstructive bowel gas pattern. Approved by: Timi Munoz M.D. on 08/27/2021 at 7:35
--- NOTE | 2021-08-27 07:58 | PC.NURSE ---
Patient difficult IV start. Multiple attempts by different RN's.
[2021-08-27] MEDS: SODIUM CHLORIDE 0.9% 1,000 ML 1000 ML IV (08:05)
[2021-08-27] MEDS: METOCLOPRAMIDE 10 MG/2 ML INJ IV (08:05)
[2021-08-27 08:26] LABS: Alanine Aminotransferase 23 IU/L (<35); Albumin 5.1 g/dL (3.5-5.0); Albumin Globulin Ratio 1.3 (1.0-2.8); Alkaline Phosphatase 130 U/L (38-126); Aspartate Aminotransferase 30 IU/L (14-36); Bilirubin Total 0.4 mg/dL (0.2-1.3); Blood Urea Nitrogen 12 mg/dL (7-17); Calcium 9.7 mg/dL (8.4-10.2); Carbon Dioxide 22 mmol/L (22-32); Chloride 97 mmol/L (98-107); Estimated Glomerular Filt Rate > 60 mL/min (>60); Globulin 3.9 g/dL (1.7-4.1); Glucose 111 mg/dL (80-110); HEMOLYSIS < 15 (0-50); Lipase 55 U/L (23-300); Potassium 3.6 mmol/L (3.4-5.1); Sodium 132 mmol/L (137-145)
[2021-08-27 08:30] LABS: Add Manual Diff / Slide Review NO; Basophils Absolute Auto 200 /uL (0-100); Basophils Percent Auto 1.2 % (0-2); Eosinophils Absolute Auto 200 /uL (0-450); Eosinophils Percent Auto 1.8 % (2-4); Hematocrit 34.4 % (36-46); Hemoglobin 11.8 g/dL (12.0-16.0); Lymphocytes Absolute Auto 2400 /uL (1100-4500); Lymphocytes Percent Auto 19.7 % (25-40); Mean Corpuscular HGB Conc 34.4 % (30-36); Mean Corpuscular Volume 84.4 fL (80-100); Monocytes Absolute Auto 700 /uL (0-900); Monocytes Percent Auto 5.5 % (3-14); Neutrophils Absolute Auto 8900 /uL (1500-7000); Neutrophils Percent Auto 71.8 % (50-75); Platelet Count 382 X10^3/uL (150-400); Red Blood Cell Count 4.08 X10^6/uL (4.0-5.2); Red Cell Distribution Width 14.2 % (11.6-14.8); White Blood Cell Count 12.4 X10^3/uL (4.5-11.0)
[2021-08-27 08:48] VITALS: BP 144/69; PULSE 98; O2SAT 99
[2021-08-27 10:11] VITALS: BP 169/74; PULSE 101; O2SAT 100
[2021-08-27] MEDS: HALOPERIDOL 5 MG/ML VIAL 2 MG IV (10:20)
[2021-08-27] MEDS: MELOXICAM 7.5 MG TABLET 15 MG PO (10:27)
[2021-08-27 11:36] VITALS: BP 175/78; PULSE 103; O2SAT 97
--- NOTE | 2021-08-27 11:37 | PC.NURSE ---
Patient noticing some improvement in nausea after Haldol. States she feels ready to go home.
== END 2021-08-27 11:47 | disposition home or self-care (01) ==
PROVIDERS: Emergency Medicine; Emergency Provider Emergency Medicine
DX: F45.8 Other somatoform disorders (principal); F30.8 Other manic episodes; M19.90 Unspecified osteoarthritis, unspecified site
CPT/HCPCS: 36415; 74022; 80053; 83690; 85025; 96361; 96374; 96375; 99284; J1630; J2765

== ENCOUNTER 2022-04-03 23:30 | Emergency (ER) | payer MEDICARE, SELFPAY ==
[2021-07-13 05:37] VITALS: BMI 28.6
[2022-04-03 23:37] VITALS: PULSE 106; O2SAT 97
[2022-04-03 23:38] VITALS: BP 175/81; PULSE 103; O2SAT 99
[2022-04-03 23:42] VITALS: BP 175/81; PULSE 98; RESP 18; TEMP 36.6; O2SAT 100; BMI 27.1
--- NOTE | 2022-04-03 23:53 | PC.NURSE ---
Patient arrived with detailed list of times throughout the day where she has taken a total of fifteen 5mg oxycodone IR. Patient took last 4 pills totaling 20mg at 1705. Dr. Melendez at bedside during triage. Patient is alert, orientated and able to make her needs known. Patient isn't short of breath as evidenced by vital signs, clear lungs and non labored chest rise and fall. Patient brought to the Emergency department by spouse after googling that taking the amount she had taken qualified as an overdose. Patient provided education following doctor instruction on administration of all her medications. Patient educated and provided Narcan for potential overdose.
[2022-04-04] MEDS: NALOXONE 4 MG NASAL SPRAY MISC (00:03)
[2022-04-04] MEDS: ONDANSETRON 4 MG ODT PREPACK 1 BOTTLE MISC (00:03)
--- NOTE | 2022-04-04 05:58 | ED.OVERDOSE ---
HPI - Overdose General Chief Complaint: Toxicology Problem Stated Complaint: OVERDOSED OXYCODINE Time Seen by Provider: 04/03/22 23:36 Source: patient Mode of arrival: Ambulatory History of Present Illness HPI Narrative: 71F nonsmoker with history of HTN, hypothyroid and bipolar presents with concern of possible oxycodone overdose. She states she has chronic bilateral knee pain and takes oxycodone IR 5mg regularly. She states that today she took 4 of these pills at 1700 and took 1 tylenol. She states that she had felt a little bit nausea earlier and a bit sleepy but has not had any symptoms since. She states that she did some reading on the Internet and that suggested that she had an overdose so she is here for evaluation. She denies any suicidal or homicidal ideation. She denies any symptoms currently. She denies dizziness, weakness or lightheadedness. She has no chest pain, shortness of breath or cough. She is awake, alert and oriented Related Data Home Medications Medication Instructions Recorded Confirmed amlodipine 10 mg tablet 10 mg PO DAILY 03/06/20 07/13/21 duloxetine 60 mg capsule,delayed 60 mg PO DAILY 03/06/20 07/13/21 release sprinkle levothyroxine 75 mcg tablet 50 mcg PO DAILY 03/06/20 07/13/21 quetiapine 50 mg tablet 50 mg PO BID 03/06/20 07/13/21 quetiapine 300 mg tablet 300 mg PO BEDTIME 07/13/21 07/13/21 Previous Rx's Medication Instructions Recorded haloperidol 2 mg tablet 2 mg PO DAILY #30 tabs 08/27/21 meloxicam 15 mg tablet 15 mg PO DAILY #30 tabs 08/27/21 metoclopramide HCl 10 mg tablet 10 mg PO Q6H PRN nausea and 08/27/21 (Reglan) vomiting #14 tabs Allergies Allergy/AdvReac Type Severity Reaction Status Date / Time Sulfa (Sulfonamide Allergy Unknown Verified 04/03/22 23:42 Antibiotics) desipramine Allergy Rash Verified 04/03/22 23:42 Review of Systems Review of Systems Narrative: GENERAL: Denies chills, fatigue, malaise, fever, sweats. HEENT: Denies sinus pain, ear pain, sore throat, difficulty swallowing, dizziness. RESPIRATORY: Denies dyspnea, cough, wheezing, hemoptysis, sputum. CARDIOVASCULAR: Denies chest pain, palpitations, orthopnea, edema, GASTROINTESTINAL: Denies nausea, vomiting, abdominal pain, diarrhea, constipation, melena. : Denies dysuria, frequency, incontinence, hematuria, urinary retention. MUSCULOSKELETAL: denies weakness, joint pain, or bony pain SKIN: Denies rash, skin lesions, or other NEUROLOGIC: Denies weakness, headache, numbness, change in speech, confusion, seizures, incoordination. PSYCHIATRIC: No concerning psychosocial issues. 12 point review of systems is negative except for those stated above Patient History Medical History Bipolar disorder Eczema Hypertension Hypothyroidism (acquired) Surgical History Hx of cholecystectomy Social History household members: spouse Smoking Status: Never smoker alcohol intake: former Smoking Status: Never smoker Substance Use Type: does not use Exam Narrative Exam Narrative: GENERAL: [71] year old patient appears stated age. Well-developed patient, in mild distress. GCS 15 HEAD: Atraumatic. Normocephalic. EYES: Pupils equal round and reactive. Extraocular motions intact. No scleral icterus. No injection or drainage. ENT: Nose without bleeding, purulent drainage. Throat without erythema, tonsillar hypertrophy or exudate. Airway patent. NECK: Trachea midline. Non tender CARDIOVASCULAR: Regular rate and rhythm without murmurs, gallops, or rubs. RESPIRATORY: Clear to auscultation. Breath sounds equal bilaterally. No wheezes, rales, or rhonchi. GASTROINTESTINAL: Abdomen soft, non-tender, nondistended. EXTREMITIES: No edema or joint tenderness. BACK: Nontender without deformity or crepitance. No flank tenderness. NEURO: AOx3. SKIN: No rash or erythema of visible areas Initial Vital Signs Initial Vital Signs: Vital Signs Pulse Rate 106 H 04/03/22 23:37 Pulse Oximetry 97 04/03/22 23:37 Course Orders Ordered: Discontinued Medications Naloxone HCl (Naloxone 4 Mg Nasal [place]) 4 mg MISC SEEINSTR ONE Stop: 04/03/22 23:40 Last Admin: 04/04/22 00:03 Dose: 4 mg Documented By: RB Ondansetron HCl (Ondansetron 4 Mg Odt Prepack) 1 bottle [facility] SEEINSTR ONE Stop: 04/03/22 23:40 Last Admin: 04/04/22 00:03 Dose: 1 bottle Documented By: LISETTE Vital Signs Vital signs: Vital Signs - 8 hr 04/03/22 23:42 04/03/22 23:37 04/03/22 23:38 Temperature 97.9 F Pulse Rate 98 H 106 H Respiratory Rate 18 Blood Pressure 175/81 H 175/81 H Pulse Oximetry 100 97 Oxygen Delivery Method Room Air 04/03/22 23:38 Temperature Pulse Rate 103 H Respiratory Rate Blood Pressure Pulse Oximetry 99 Oxygen Delivery Method MDM - Overdose MDM Narrative Medical decision making narrative: 71-year-old female with history of bipolar and chronic pain presents due to concern of possible overdose. Her ingestion of 20 mg of oxycodone was approximately 7 hours ago. She is completely asymptomatic and certainly demonstrating no signs of respiratory distress or obtundation. Other diagnoses include suicidal or homicidal ideation. Patient is awake, alert and oriented and asymptomatic. There is no indication for further evaluation with labs, imaging or other. She is given Narcan prepack, a Zofran prepack, return precautions and reassurance. Naloxone at Discharge Patient criteria for naloxone at discharge: Already has reversal meds (given as prepack at time of discharge) Discharge Plan Departure Patient Disposition: Home Clinical Impression: Opioid overdose Activity Restrictions/Additional Instructions: *You have been diagnosed with [accidental overdose of oxycodone. As we discussed you are many hours after your last ingestion and the half-life of this medication is long eclipsed and we are well beyond the time frame that we would expect you to have symptoms of overdose.] *What to do: *Please continue to take your regular medications as directed. [ ] New medication prescriptions sent to your pharmacy: [ ] [ ] New medication written as a paper prescription [x ] No new medications given *Please follow up with your primary care provider in 2-3 days, call for an appointment. Let them know you were seen in the Emergency Department and that we ask that you be seen in follow up. We will electronically transmit a record of today's note if your PCP is in our system *Return to Emergency Department if you should have any new, worsening or concerning symptoms, such as [fever greater than 101 F, shaking chills, worsening pain, persistent vomiting or other bothersome symptoms] Prescriptions: No Action levothyroxine 75 mcg Tablet 50 mcg PO DAILY amlodipine 10 mg Tablet 10 mg PO DAILY quetiapine 50 mg Tablet 50 mg PO BID duloxetine 60 mg Capsule, Delayed Rel Sprinkle 60 mg PO DAILY quetiapine 300 mg Tablet 300 mg PO BEDTIME haloperidol 2 mg tablet 2 mg PO DAILY Qty: 30 0RF meloxicam 15 mg tablet 15 mg PO DAILY Qty: 30 0RF metoclopramide HCl [Reglan] 10 mg tablet 10 mg PO Q6H PRN (Reason: nausea and vomiting) Qty: 14 0RF Visit Report Forms: Patient Portal/API
== END 2022-04-04 00:19 | disposition home or self-care (01) ==
PROVIDERS: Emergency Provider Emergency Medicine
DX: T40.2X1A Poisoning by other opioids, accidental (unintentional), initial encounter (principal)
CPT/HCPCS: 99283; A9270

== ENCOUNTER 2022-04-22 01:52 | Inpatient (IN) | payer MEDICARE, SELFPAY ==
[2021-07-13 05:37] VITALS: BMI 28.6
[2022-04-22 02:29] VITALS: BP 183/82; PULSE 85; RESP 20; TEMP 37.1; O2SAT 97
--- NOTE | 2022-04-22 02:35 | ED.NAVMDI ---
HPI - Nausea/Vomiting/Diarrhea General Chief complaint: Nausea/Vomiting/Diarrhea Stated complaint: LOW SODIUM/NAUSEA Time Seen by Provider: 04/22/22 02:14 Source: patient and family Mode of arrival: Ambulatory History of Present Illness HPI Narrative: This is a 71-year-old female with history anxiety, manic depression, hypertension hypothyroidism and recurrent hyponatremia who presents with concern of nausea and vomiting and low sodium. Patient states her symptoms are consistent with when her sodium has been low in the past. Her notes that she is been acting a little bit more crazy which is more consistent with when her sodium gets low. Patient used to be on lithium she is no longer. She is not had any acute medication changes recently. notes she is been drinking possibly up to 3 gal of water daily, patient notes she is drinking a lot of water although she thinks 1 gal. She denies fevers or chills. She states her taste seems different. She denies chest pain or shortness of breath. She is had nausea and vomiting. She denies diarrhea constipation. She denies dysuria but has had frequency and large amounts of urine. Patient also states she is chronic back pain and joint pain which is still present. Neither she nor her have noted major gait changes. She has had cholecystectomy in the past. She denies tobacco, alcohol or illicit drug use. They also note that patient is no longer taking lithium. Patient and note that their son recently about a month ago after being struck by a train in the [facility]. Related Data Home Medications Medication Instructions Recorded Confirmed amlodipine 10 mg tablet 10 mg PO DAILY 03/06/20 07/13/21 duloxetine 60 mg capsule,delayed 60 mg PO DAILY 03/06/20 07/13/21 release sprinkle levothyroxine 75 mcg tablet 50 mcg PO DAILY 03/06/20 07/13/21 quetiapine 50 mg tablet 50 mg PO BID 03/06/20 07/13/21 quetiapine 300 mg tablet 300 mg PO BEDTIME 07/13/21 07/13/21 Previous Rx's Medication Instructions Recorded haloperidol 2 mg tablet 2 mg PO DAILY #30 tabs 08/27/21 meloxicam 15 mg tablet 15 mg PO DAILY #30 tabs 08/27/21 metoclopramide HCl 10 mg tablet 10 mg PO Q6H PRN nausea and 08/27/21 (Reglan) vomiting #14 tabs Allergies Allergy/AdvReac Type Severity Reaction Status Date / Time Sulfa (Sulfonamide Allergy Unknown Verified 04/03/22 23:42 Antibiotics) desipramine Allergy Rash Verified 04/03/22 23:42 Review of Systems Review of Systems ROS Unobtainable: All systems reviewed & are unremarkable except as noted in HPI and below Patient History Medical History Bipolar disorder Eczema Hypertension Hypothyroidism (acquired) Surgical History Hx of cholecystectomy Family History (Updated 04/22/22 @ 04:48 by REBECA Power) Mother Alcohol abuse Father CVA (cerebral vascular accident) Social History household members: spouse Smoking Status: Never smoker alcohol intake: former Smoking Status: Never smoker Substance Use Type: does not use Exam Narrative Exam Narrative: GEN: Elderly female, alert and oriented x [default value], patient appears to be in mild distress. HEENT: Atraumatic, pupils are equal round reactive to light, extraocular movements are intact, nares are clear, Throat is clear without any exudates, erythema, tonsillar enlargement or uvular deviation HEART: Regular rate and rhythm without murmur, clicks, rubs. Pulses are equal in upper and lower extremities, patient has bilateral lower extremity swelling. LUNGS:Lungs clear to auscultation, no wheezes, rales, crackles, chest moves symmetrically, no crackles wheezes or rales. ABD:bowel sounds normal, soft, non-tender, no guarding, rebound, rigidity, no masses noted, no hepatosplenomegaly :No CVA tenderness MSCL: Non-tender, no muscle atrophy, muscles strength 5/5 upper and lower extremities, full range of motion, normal gait NEURO:CN 2-12 intact, sensation normal, patient has clear speech but it is pressured. Initial Vital Signs Initial Vital Signs: Vital Signs Temperature 98.7 F 04/22/22 02:29 Pulse Rate 85 04/22/22 02:29 Respiratory Rate 20 04/22/22 02:29 Blood Pressure 183/82 H 04/22/22 02:29 Pulse Oximetry 97 04/22/22 02:29 Oxygen Delivery Method 04/22/22 02:29 Course Orders Ordered: ED Orders 04/22/22 02:25 CBC Auto Diff [Complete Blood Count AUTO DIFF] Stat CMP [Comprehensive Metabolic Panel] Stat Free T4, Direct Thyroxine Stat Hemoglobin A1C% w Est Avg Glu Stat Lipase Stat TSH w/ Reflex to FT4 Stat 04/22/22 03:00 Osmolality Urine Stat Osmolality, Serum Stat Sodium Urine Random Stat Urine Drug Screen, Rapid Stat 04/22/22 03:15 COVID19 -Nasal RAPID/Pre-Proc Stat Acetaminophen (Acetaminophen 325 Mg Tablet) 650 mg PO Q6H PRN PRN Reason: Fever/Mild Pain (1-3) Hydrocodone Bitart/Acetaminophen (Hydrocodone/Acet 5/325 Tablet) 1 tab PO Q4H PRN PRN Reason: Pain, Moderate (4-6) Enoxaparin Sodium (Enoxaparin 40 Mg/0.4 Ml Syringe) 40 mg SUBCUT DAILY ANDRESSA Naloxone HCl (Naloxone 0.4 Mg/Ml Vial) 0.2 mg IV Q2MIN PRN PRN Reason: Opiate Reversal Ondansetron HCl (Ondansetron 4 Mg/2 Ml Inj) 4 mg IV Q6HR PRN PRN Reason: Nausea And Vomiting Prochlorperazine (Prochlorperazine 10 Mg/2 Ml Vial) 5 mg IV Q6HR PRN PRN Reason: Nausea Discontinued Medications Amlodipine Besylate (Amlodipine 5 Mg Tablet) 2.5 mg PO NOW ONE Stop: 04/22/22 04:56 Benzocaine (Benzocaine/Menthol 1 Ana Pkt) 1 each PO NOW ONE Stop: 04/22/22 02:17 Ondansetron HCl (Ondansetron 4 Mg/2 Ml Inj) 4 mg IV NOW ONE Stop: 04/22/22 03:11 Last Admin: 04/22/22 03:38 Dose: 4 mg Documented By: MIRELLA Oxycodone HCl (Oxycodone Ir 5 Mg Tablet) 5 mg PO NOW ONE Stop: 04/22/22 03:28 Last Admin: 04/22/22 03:38 Dose: 5 mg Documented By: MIRELLA Potassium Chloride (Potassium Chloride 20 Meq Tab) 40 meq PO NOW ONE Stop: 04/22/22 04:51 Vital Signs Vital signs: Vital Signs - 8 hr 04/22/22 02:29 Temperature 98.7 F Pulse Rate 85 Respiratory Rate 20 Blood Pressure 183/82 H Pulse Oximetry 97 Oxygen Delivery Method Room Air MDM - Nausea/Vomiting/Diarrhea Lab Data Result diagrams: 04/22/22 02:25 04/22/22 02:25 Labs: Lab Results 04/22/22 04/22/22 04/22/22 Range/Units 02:25 02:25 02:25 WBC 13.4 H (4.5-11.0) X10^3/uL RBC 4.22 (4.0-5.2) X10^6/uL Hgb 12.5 (12.0-16.0) g/dL Hct 36.3 (36-46) % MCV 86.1 (80-100) fL MCH 29.6 (26-34) PG MCHC 34.4 (30-36) % RDW 13.0 (11.6-14.8) % Plt Count 510 H (150-400) X10^3/uL Neut % (Auto) 71.5 (50-75) % Lymph % (Auto) 22.7 L (25-40) % [place] % (Auto) 4.3 (3-14) % Eos % (Auto) 0.5 L (2-4) % Baso % (Auto) 1.0 (0-2) % Neut # (Auto) 9600 H (9757-9114) /uL Lymph # (Auto) 3000 (1690-3906) /uL [place] # (Auto) 600 (0-900) /uL Eos # (Auto) 100 (0-450) /uL Baso # (Auto) 100 (0-100) /uL Sodium 124 L (137-145) mmol/L Potassium 3.2 L (3.4-5.1) mmol/L Chloride 88 L (98-107) mmol/L Carbon Dioxide 20 L (22-32) mmol/L BUN 7 (7-17) mg/dL Creatinine 0.68 (0.52-1.04) mg/dL Estimated GFR > 60 (>60) mL/min BUN/Creatinine Ratio 10.3 (6-22) Glucose 117 H (80-110) mg/dL Hemoglobin A1c (4.0-6.0) % Calcium 9.9 (8.4-10.2) mg/dL Total Bilirubin 0.4 (0.2-1.3) mg/dL AST 24 (14-36) IU/L ALT 20 (<35) IU/L Alkaline Phosphatase 192 H (38-126) U/L Total Protein 9.3 H (6.3-8.2) g/dL Albumin 5.3 H (3.5-5.0) g/dL Globulin 4.0 (1.7-4.1) g/dL Albumin/Globulin Ratio 1.3 (1.0-2.8) Lipase 75 (23-300) U/L TSH 0.27 L (0.47-4.68) uIU/mL Free T4 1.07 (0.78-2.19) ng/dL Ur Random Sodium (30-90) mmol/L Urine Creatinine mg/dL U Opiates 300ng/mL cut (Negative) Ur Oxycodone Screen (Negative) Urine Methadone Screen (Negative) Ur Barbiturates Screen (Negative) U Tricyclic Antidepress (Negative) Ur Phencyclidine Scrn (Negative) Ur Amphetamines Screen (Negative) U Methamphetamines Scrn (Negative) Ur MDMA Scrn (Ecstasy) (Negative) U Benzodiazepines Scrn (Negative) Urine Cocaine Screen (Negative) U Marijuana (THC) Screen (Negative) SARS-CoV-2 (PCR) (Negative) 04/22/22 04/22/22 04/22/22 Range/Units 02:25 03:00 03:00 WBC (4.5-11.0) X10^3/uL RBC (4.0-5.2) X10^6/uL Hgb (12.0-16.0) g/dL Hct (36-46) % MCV (80-100) fL MCH (26-34) PG MCHC (30-36) % RDW (11.6-14.8) % Plt Count (150-400) X10^3/uL Neut % (Auto) (50-75) % Lymph % (Auto) (25-40) % [place] % (Auto) (3-14) % Eos % (Auto) (2-4) % Baso % (Auto) (0-2) % Neut # (Auto) (5691-3574) /uL Lymph # (Auto) (8705-8731) /uL [place] # (Auto) (0-900) /uL Eos # (Auto) (0-450) /uL Baso # (Auto) (0-100) /uL Sodium (137-145) mmol/L Potassium (3.4-5.1) mmol/L Chloride (98-107) mmol/L Carbon Dioxide (22-32) mmol/L BUN (7-17) mg/dL Creatinine (0.52-1.04) mg/dL Estimated GFR (>60) mL/min BUN/Creatinine Ratio (6-22) Glucose (80-110) mg/dL Hemoglobin A1c 5.4 (4.0-6.0) % Calcium (8.4-10.2) mg/dL Total Bilirubin (0.2-1.3) mg/dL AST (14-36) IU/L ALT (<35) IU/L Alkaline Phosphatase (38-126) U/L Total Protein (6.3-8.2) g/dL Albumin (3.5-5.0) g/dL Globulin (1.7-4.1) g/dL Albumin/Globulin Ratio (1.0-2.8) Lipase (23-300) U/L TSH (0.47-4.68) uIU/mL Free T4 (0.78-2.19) ng/dL Ur Random Sodium 28 L (30-90) mmol/L Urine Creatinine mg/dL U Opiates 300ng/mL cut Negative (Negative) Ur Oxycodone Screen Negative (Negative) Urine Methadone Screen Negative (Negative) Ur Barbiturates Screen Negative (Negative) U Tricyclic Antidepress Negative (Negative) Ur Phencyclidine Scrn Negative (Negative) Ur Amphetamines Screen Negative (Negative) U Methamphetamines Scrn Negative (Negative) Ur MDMA Scrn (Ecstasy) Negative (Negative) U Benzodiazepines Scrn Negative (Negative) Urine Cocaine Screen Negative (Negative) U Marijuana (THC) Screen Negative (Negative) SARS-CoV-2 (PCR) (Negative) 04/22/22 04/22/22 Range/Units 03:00 03:15 WBC (4.5-11.0) X10^3/uL RBC (4.0-5.2) X10^6/uL Hgb (12.0-16.0) g/dL Hct (36-46) % MCV (80-100) fL MCH (26-34) PG MCHC (30-36) % RDW (11.6-14.8) % Plt Count (150-400) X10^3/uL Neut % (Auto) (50-75) % Lymph % (Auto) (25-40) % [place] % (Auto) (3-14) % Eos % (Auto) (2-4) % Baso % (Auto) (0-2) % Neut # (Auto) (8129-5975) /uL Lymph # (Auto) (8208-8129) /uL [place] # (Auto) (0-900) /uL Eos # (Auto) (0-450) /uL Baso # (Auto) (0-100) /uL Sodium (137-145) mmol/L Potassium (3.4-5.1) mmol/L Chloride (98-107) mmol/L Carbon Dioxide (22-32) mmol/L BUN (7-17) mg/dL Creatinine (0.52-1.04) mg/dL Estimated GFR (>60) mL/min BUN/Creatinine Ratio (6-22) Glucose (80-110) mg/dL Hemoglobin A1c (4.0-6.0) % Calcium (8.4-10.2) mg/dL Total Bilirubin (0.2-1.3) mg/dL AST (14-36) IU/L ALT (<35) IU/L Alkaline Phosphatase (38-126) U/L Total Protein (6.3-8.2) g/dL Albumin (3.5-5.0) g/dL Globulin (1.7-4.1) g/dL Albumin/Globulin Ratio (1.0-2.8) Lipase (23-300) U/L TSH (0.47-4.68) uIU/mL Free T4 (0.78-2.19) ng/dL Ur Random Sodium (30-90) mmol/L Urine Creatinine 5.9 mg/dL U Opiates 300ng/mL cut (Negative) Ur Oxycodone Screen (Negative) Urine Methadone Screen (Negative) Ur Barbiturates Screen (Negative) U Tricyclic Antidepress (Negative) Ur Phencyclidine Scrn (Negative) Ur Amphetamines Screen (Negative) U Methamphetamines Scrn (Negative) Ur MDMA Scrn (Ecstasy) (Negative) U Benzodiazepines Scrn (Negative) Urine Cocaine Screen (Negative) U Marijuana (THC) Screen (Negative) SARS-CoV-2 (PCR) Negative (Negative) Urine Dip Bedside Urine Glucose Negative Bedside Urine Bilirubin - Negative Bedside Urine Ketone - Negative Urine Specific [place] 1.010 Bedside Urine Occult Blood - Negative Bedside Urine pH 6.0 Bedside Urine Protein - Negative Bedside Urine Urobilinogen - Negative Bedside Urine Nitrite - Negative Bedside Urine Leukocytes - Negative Esterase MDM Narrative Medical decision making narrative: This is a 71-year-old female who presents with concerns for hyponatremia she has a sodium of 124 her does note some mentation changes. She does have a psychiatric history which may be contributing he notes she is drinking up to 3 L daily, patient also notes she is drinking a lot water. At this time I suspect more hypervolemic hyponatremia. Potassium is also slightly low patient notes she has been vomiting recently. Patient case discussed with hospitalist REBECA Yung who accepts, she does ask for hemoglobin A1C to be added on. Discharge Plan Departure Patient Disposition: Admitted As Inpatient Clinical Impression: Hyponatremia, Hypokalemia Admit Date/Time: 04/22/22 03:33 Admit Provider: Ondina Ramirez
--- NOTE | 2022-04-22 02:45 | PC.NURSE ---
Ambulatory to the bathroom - states that she spilled the cup on the floor
[2022-04-22 02:46] LABS: Add Manual Diff / Slide Review NO; Basophils Absolute Auto 100 /uL (0-100); Eosinophils Absolute Auto 100 /uL (0-450); Eosinophils Percent Auto 0.5 % (2-4); Hematocrit 36.3 % (36-46); Hemoglobin 12.5 g/dL (12.0-16.0); Lymphocytes Absolute Auto 3000 /uL (1100-4500); Lymphocytes Percent Auto 22.7 % (25-40); Mean Corpuscular HGB Conc 34.4 % (30-36); Mean Corpuscular Hemoglobin 29.6 PG (26-34); Mean Corpuscular Volume 86.1 fL (80-100); Monocytes Absolute Auto 600 /uL (0-900); Monocytes Percent Auto 4.3 % (3-14); Neutrophils Absolute Auto 9600 /uL (1500-7000); Neutrophils Percent Auto 71.5 % (50-75); Platelet Count 510 X10^3/uL (150-400); Red Blood Cell Count 4.22 X10^6/uL (4.0-5.2); White Blood Cell Count 13.4 X10^3/uL (4.5-11.0)
[2022-04-22 02:51] LABS: Alanine Aminotransferase 20 IU/L (<35); Albumin 5.3 g/dL (3.5-5.0); Albumin Globulin Ratio 1.3 (1.0-2.8); Alkaline Phosphatase 192 U/L (38-126); Aspartate Aminotransferase 24 IU/L (14-36); BUN Creatinine Ratio 10.3 (6-22); Bilirubin Total 0.4 mg/dL (0.2-1.3); Blood Urea Nitrogen 7 mg/dL (7-17); Calcium 9.9 mg/dL (8.4-10.2); Carbon Dioxide 20 mmol/L (22-32); Chloride 88 mmol/L (98-107); Estimated Glomerular Filt Rate > 60 mL/min (>60); Glucose 117 mg/dL (80-110); HEMOLYSIS < 15 (0-50); Lipase 75 U/L (23-300); Potassium 3.2 mmol/L (3.4-5.1); Sodium 124 mmol/L (137-145); Total Protein 9.3 g/dL (6.3-8.2)
--- NOTE | 2022-04-22 03:20 | PC.NURSE ---
Approaches the RN station - upset - requesting oxycontin - asked when she is being admitted and when the medication will be given - explained that the medication was just ordered by the MD and that it will be given as soon as possible - pt demands it now and then begins to get loud and stamp feet - throws arms up in the air and then donw to her thighs with her fists bawled up. Assisted to room - spouse at bedside
--- NOTE | 2022-04-22 03:24 | PC.NURSE ---
COVID test performed at this time
[2022-04-22 03:26] LABS: TSH w/ Reflex to FT4 0.27 uIU/mL (0.47-4.68)
[2022-04-22 03:28] LABS: Sodium Urine Random 28 mmol/L (30-90)
--- NOTE | 2022-04-22 03:35 | PC.NURSE ---
In rom to medicate pt - laughing with RN at this time
[2022-04-22] MEDS: ONDANSETRON 4 MG/2 ML INJ IV (03:38)
[2022-04-22] MEDS: OXYCODONE IR 5 MG TABLET PO (03:38)
[2022-04-22 03:45] LABS: UR Morphine/Opiate cutoff 300 Negative (Negative); Ur Creatinine Normal (Normal); Ur Specific Gravity Normal (Normal); Urine Amphetamines Negative (Negative); Urine Barbiturates Negative (Negative); Urine Benzodiazepines Negative (Negative); Urine Cocaine Negative (Negative); Urine MDMA Negative (Negative); Urine Methadone Negative (Negative); Urine Methamphetamines Negative (Negative); Urine Phencyclidine Negative (Negative); Urine Tetrahydrocannabinol Negative (Negative); Urine pH Normal (Normal)
[2022-04-22 03:46] LABS: Urine Oxycodone Negative (Negative); Urine Tricyclic Antidepressant Negative (Negative)
[2022-04-22 03:46] LABS: COVID19 -Nasal RAPID Negative (Negative)
[2022-04-22 03:50] LABS: Hemoglobin A1C% w Est Avg Glu 5.4 % (4.0-6.0)
[2022-04-22 03:56] LABS: Free T4, Direct Thyroxine 1.07 ng/dL (0.78-2.19)
--- NOTE | 2022-04-22 04:05 | PC.NURSE ---
Hospitalist at bedside
--- NOTE | 2022-04-22 04:31 | PC.NURSE ---
Ambulatory to the bathroom - clean catch UA collected at this time
--- NOTE | 2022-04-22 04:32 | P.HP_ITS ---
History of Present Illness History of Present Illness Date Patient Seen: 04/22/22 Time Patient Seen: 04:32 Chief complaint: Hyponatremia, hypokalemia, polydypsia, polyurea Narrative: Chief complaint: Hyponatremia, hypokalemia, polydypsia, polyurea Camilla Kim is a 69 female with bipolar disorder, anxiety, depression, HTN, hypothyroidism presented to the ED with nausea and vomiting. She says she has had issues multiple times in the past years with nausea and hyponatremia and now she states she is drinking a gallon and a half of water per day and urinating every 5 minutes.She denies abdominal pain. She denies diarrhea or constipation. Denies has no fevers but is unable to get warm, requesting warm blankets. Denies cough or shortness of breath. Her spouse told the ED provider that she is slightly confused and agitated. She does not feel particularly dehydrated at the moment. She is complaining of significant chronic right leg pain from arthritis and bursitis. She has not started any new medications. She sees Ta Galvez NP and goes to [facility] in [facility]. She has had multiple admissions for hyponatremia as well as an admission for lithium toxicity in 2019. She is afebrile, blood pressure 183/82 heart rate 85 respiratory rate 20 oxygen saturation 97% on room air she weighs 77.8 kg with a BMI of 28.6. She is a mildly elevated white count at 13.4, platelet count 510 she is a mild left shift of 9600, sodium 124 potassium 3.2 chloride 88 bicarb 20 glucose 117 with an A1c of 5.4, alk-phos is elevated at 192 and her albumin is 5.3 TSH is low at 0.27 free T4 is 1.07 urine osmolality is pending urine random sodium is low at 28, urinw toxicology screen was negative. COVID-19 PCR is negative Patient History Medical History Bipolar disorder Eczema Hypertension Hypothyroidism (acquired) Surgical History Hx of cholecystectomy Family & Social History Family History (Updated 04/22/22 @ 04:48 by REBECA Power) Mother Alcohol abuse Father CVA (cerebral vascular accident) Social History: household members spouse Safety & Behavioral: Feels Safe in Current Yes Environment Been Physically Hurt or No Threatened By a Person Tobacco & Substance use: Smoking Status Never smoker alcohol intake former Substance Use Type does not use Meds Home Medications and Allergies Home Medications Medication Instructions Recorded Confirmed Type amlodipine 10 mg tablet 10 mg PO DAILY 03/06/20 07/13/21 History duloxetine 60 mg capsule,delayed 60 mg PO DAILY 03/06/20 07/13/21 History release sprinkle levothyroxine 75 mcg tablet 50 mcg PO DAILY 03/06/20 07/13/21 History quetiapine 50 mg tablet 50 mg PO BID 03/06/20 07/13/21 History quetiapine 300 mg tablet 300 mg PO BEDTIME 07/13/21 07/13/21 History haloperidol 2 mg tablet 2 mg PO DAILY #30 tabs 08/27/21 Rx meloxicam 15 mg tablet 15 mg PO DAILY #30 tabs 08/27/21 Rx metoclopramide HCl 10 mg tablet 10 mg PO Q6H PRN nausea and 08/27/21 Rx (Reglan) vomiting #14 tabs Allergies Allergy/AdvReac Type Severity Reaction Status Date / Time Sulfa (Sulfonamide Allergy Unknown Verified 04/03/22 23:42 Antibiotics) desipramine Allergy Rash Verified 04/03/22 23:42 Review of Systems Review of Systems ROS: Yes All systems reviewed with the patient and are negative except as otherwise documented Exam Vital Signs (past 8 hours): - 04/22/22 02:29 Temperature 98.7 F Pulse Rate 85 Respiratory Rate 20 Blood Pressure 183/82 H Pulse Oximetry 97 Oxygen Delivery Method Room Air Oxygen Delivery Method Room Air Narrative Exam Narrative: Gen: Alert, oriented, well-developed 71 y.o. female, restless HEENT: normocephalic, atraumatic, conjunctiva clear, sclera non-icteric, oral mucosa pink and moist Neck: supple, full ROM, no JVD, trachea is midline Resp: Lungs CTA, non-labored breathing CV: RRR, no murmur or rubs Abd: soft, non-tender, normoactive BTs Skin: no lesions or rashes, dry and intact Neuro: Alert and oriented X 4 w/no focal deficits. Speech clear and coherent. Extremities: moves all 4 extremities, is ambulatory, negative Curtis?s sign Psyche: slightly pressured speech but cooperative Objective Labs Result Diagrams: 04/22/22 02:25 04/22/22 02:25 Labs: Laboratory Results - last 24 hr 04/22/22 04/22/22 04/22/22 02:25 02:25 02:25 WBC 13.4 H RBC 4.22 Hgb 12.5 Hct 36.3 MCV 86.1 MCH 29.6 MCHC 34.4 RDW 13.0 Plt Count 510 H Neut % (Auto) 71.5 Lymph % (Auto) 22.7 L [place] % (Auto) 4.3 Eos % (Auto) 0.5 L Baso % (Auto) 1.0 Neut # (Auto) 9600 H Lymph # (Auto) 3000 [place] # (Auto) 600 Eos # (Auto) 100 Baso # (Auto) 100 Sodium 124 L Potassium 3.2 L Chloride 88 L Carbon Dioxide 20 L BUN 7 Creatinine 0.68 Estimated GFR > 60 BUN/Creatinine Ratio 10.3 Glucose 117 H Hemoglobin A1c Calcium 9.9 Total Bilirubin 0.4 AST 24 ALT 20 Alkaline Phosphatase 192 H Total Protein 9.3 H Albumin 5.3 H Globulin 4.0 Albumin/Globulin Ratio 1.3 Lipase 75 TSH 0.27 L Free T4 1.07 Ur Random Sodium U Opiates 300ng/mL cut Ur Oxycodone Screen Urine Methadone Screen Ur Barbiturates Screen U Tricyclic Antidepress Ur Phencyclidine Scrn Ur Amphetamines Screen U Methamphetamines Scrn Ur MDMA Scrn (Ecstasy) U Benzodiazepines Scrn Urine Cocaine Screen U Marijuana (THC) Screen SARS-CoV-2 (PCR) 04/22/22 04/22/22 04/22/22 02:25 03:00 03:00 WBC RBC Hgb Hct MCV MCH MCHC RDW Plt Count Neut % (Auto) Lymph % (Auto) [place] % (Auto) Eos % (Auto) Baso % (Auto) Neut # (Auto) Lymph # (Auto) [place] # (Auto) Eos # (Auto) Baso # (Auto) Sodium Potassium Chloride Carbon Dioxide BUN Creatinine Estimated GFR BUN/Creatinine Ratio Glucose Hemoglobin A1c 5.4 Calcium Total Bilirubin AST ALT Alkaline Phosphatase Total Protein Albumin Globulin Albumin/Globulin Ratio Lipase TSH Free T4 Ur Random Sodium 28 L U Opiates 300ng/mL cut Negative Ur Oxycodone Screen Negative Urine Methadone Screen Negative Ur Barbiturates Screen Negative U Tricyclic Antidepress Negative Ur Phencyclidine Scrn Negative Ur Amphetamines Screen Negative U Methamphetamines Scrn Negative Ur MDMA Scrn (Ecstasy) Negative U Benzodiazepines Scrn Negative Urine Cocaine Screen Negative U Marijuana (THC) Screen Negative SARS-CoV-2 (PCR) 04/22/22 03:15 WBC RBC Hgb Hct MCV MCH MCHC RDW Plt Count Neut % (Auto) Lymph % (Auto) [place] % (Auto) Eos % (Auto) Baso % (Auto) Neut # (Auto) Lymph # (Auto) [place] # (Auto) Eos # (Auto) Baso # (Auto) Sodium Potassium Chloride Carbon Dioxide BUN Creatinine Estimated GFR BUN/Creatinine Ratio Glucose Hemoglobin A1c Calcium Total Bilirubin AST ALT Alkaline Phosphatase Total Protein Albumin Globulin Albumin/Globulin Ratio Lipase TSH Free T4 Ur Random Sodium U Opiates 300ng/mL cut Ur Oxycodone Screen Urine Methadone Screen Ur Barbiturates Screen U Tricyclic Antidepress Ur Phencyclidine Scrn Ur Amphetamines Screen U Methamphetamines Scrn Ur MDMA Scrn (Ecstasy) U Benzodiazepines Scrn Urine Cocaine Screen U Marijuana (THC) Screen SARS-CoV-2 (PCR) Negative Assessment & Plan Assessment & Plan narrative: Camilla Kim is admitted for further management and workup of hyponatremia Hyponatremia, acute and present on admission * Likely secondary to polydipsia and polyurea * Fluid restriction to 1500 ml * Urine sodium is low, urine osmolality and creatine pending * I believe the ED did a dipstic U/a, but have requested the lab to run one * diabetes insipidus suspected Hypokalemia, acute and present on admission * Serum potassium is 3.2 and she is administered 40 mEq of oral potassium Nausea and vomiting, acute * Likely due to hyponatremia * IV ondansatron and prochlorperazine for symptom control Bipolar disorder, appears to be chronic * Psychiatry consult ordered, please call Dr. Alvarez on Saturday. * I have not identified any adverse effects of her psyche meds on her elect rolytes, though Pharmacy may weigh in. Essential hypertension, poorly controlled * unconfirmed home med indicates she take amlodipine 10 mg/day. She is ordered for 5 mg now, and will resume full dose when confirmed. VTE Prophylaxis: Wells risk score 0 X Enoxaparin 40 mg subQ once daily Patient is admitted to the inpatient service due to the severity of disease, risks of further disease progression and this stay is expected to exceed 2 midnights. FEN: IV fluids: saline lock, diet: low sodium, low protein, labs: CBC, C, Mag Consultants Dr. Alvarez, psychiatry, care and involvement in the patient?s care is appreciated. Dispo: admitted as inpatient, anticipate discharge to home. Code status: Full code as discussed with the patient who identifies her , Britton as her surrogate and POA. [X] I have utilized all available immediate resources to obtain, update, or review of the patient's current medications VTE Deep Vein Thrombosis/Pulmonary Embolism Present on Admission: No MIPS - Admit I confirm the patient?s Advance Care Plan is present, Code status is documented, Surrogate decision maker is in patient?s record: Yes MIPS - DC The patient has current or prior documentation of left ventricular ejection fraction (LVEF) less than 40%, or moderate or severely depressed left ve ntricular systolic function.: No COVID-19 COVID-19 status: Negative Result date/Date tested (Pos, Neg/Pending): 04/22/22
--- NOTE | 2022-04-22 04:50 | PC.NURSE ---
Report called to ADRIAN Hernandez
[2022-04-22 05:11] LABS: Creatinine Urine Random 5.9 mg/dL
--- NOTE | 2022-04-22 05:11 | PC.NURSE ---
pt refused VS - screaming at RN to get away from her - yelling at staff
[2022-04-22 06:00] VITALS: BP 170/99; PULSE 112; RESP 24; TEMP 36.1; O2SAT 97
--- NOTE | 2022-04-22 07:03 | PC.NURSE ---
Pt Strongly requesting a different bed (was in [facility]), brought pt Beena bed which she is satisfied with at this time. She also has requested warm blankets [id number] for which she was informed the limited amount of blankets we have on the AC floor.
--- NOTE | 2022-04-22 07:38 | PC.NURSE ---
Addendum entered by Malou Pablo R.N. 04/22/22 14:20: Patient just took her oral potassium and swallowed well. She is eating at meals and is also on a fluid restriction. Given one vicodin earlier and helpful for discomfort. She is resting comfortably. Original Note: Patient is alert and oriented x3, she does have bipolar and laughs inappropriately. She denies pain at this time and states that she was given a oxycodone down in the ER. Patient denies falls in the last 3 months and her skin is clear. Per report patient drinks a lot of water at home. She will be on a fluid restriction here.
[2022-04-22 07:42] VITALS: BMI 31.3
[2022-04-22] MEDS: AMLODIPINE 5 MG TABLET 2.5 MG PO (08:17)
[2022-04-22] MEDS: POTASSIUM CHLORIDE 20 MEQ TAB 40 MEQ PO ×2 (08:17→14:07)
[2022-04-22] MEDS: HYDROCODONE/ACET 5/325 TABLET 1 TAB PO (09:58)
[2022-04-22 12:20] LABS: BUN Creatinine Ratio 12.3 (6-22); Blood Urea Nitrogen 9 mg/dL (7-17); Calcium 9.8 mg/dL (8.4-10.2); Carbon Dioxide 26 mmol/L (22-32); Chloride 95 mmol/L (98-107); Estimated Glomerular Filt Rate > 60 mL/min (>60); Glucose 96 mg/dL (80-110); HEMOLYSIS < 15 (0-50); Potassium 3.4 mmol/L (3.4-5.1); Sodium 132 mmol/L (137-145)
--- NOTE | 2022-04-22 14:46 | PM.DS.1 ---
History of Present Illness History of Present Illness Date Patient Seen: 04/22/22 Time Patient Seen: 14:46 Chief complaint: Hyponatremia, hypokalemia, polydypsia, polyurea Narrative: Per admitting provider, Chief complaint: Hyponatremia, hypokalemia, polydypsia, polyurea Camilla Kim is a 69 female with bipolar disorder, anxiety, depression, HTN, hypothyroidism presented to the ED with nausea and vomiting. She says she has had issues multiple times in the past years with nausea and hyponatremia and now she states she is drinking a gallon and a half of water per day and urinating every 5 minutes.She denies abdominal pain. She denies diarrhea or constipation. Denies has no fevers but is unable to get warm, requesting warm blankets. Denies cough or shortness of breath. Her spouse told the ED provider that she is slightly confused and agitated. She does not feel particularly dehydrated at the moment. She is complaining of significant chronic right leg pain from arthritis and bursitis. She has not started any new medications. She sees Ta Galvez NP and goes to [facility] in [facility]. She has had multiple admissions for hyponatremia as well as an admission for lithium toxicity in 2019. She is afebrile, blood pressure 183/82 heart rate 85 respiratory rate 20 oxygen saturation 97% on room air she weighs 77.8 kg with a BMI of 28.6. She is a mildly elevated white count at 13.4, platelet count 510 she is a mild left shift of 9600, sodium 124 potassium 3.2 chloride 88 bicarb 20 glucose 117 with an A1c of 5.4, alk-phos is elevated at 192 and her albumin is 5.3 TSH is low at 0.27 free T4 is 1.07 urine osmolality is pending urine random sodium is low at 28, urinw toxicology screen was negative. COVID-19 PCR is negative Discharge Providers Provider Date of admission: 04/22/22 03:33 Discharge Date: 04/22/22 Primary care physician: REBECA Garcia Discharge provider: Edgar Thorpe DO Summary Hospital Course Discharge Diagnosis: Hyponatremia, acute and present on admission Hypokalemia, acute and present on admission Nausea and vomiting, acute Bipolar disorder, appears to be chronic Essential hypertension Hospital Course: This is a 71 year old female admitted with nausea and vomiting suspected to be secondary to hyponatremia. She has a chronic hyponatremia based on previous values with sodium normally in the low 130s. Sodium on admission was 124. She had been drinking close to 4 L of fluid per family, though patient denied this much but did endorse much increased thirst. She had a very low sepcific gravity on UA at 1.010. Urine Na was borderline at 28. She was continued on fluid restriction for either psychogenic polydipsia, possibly in the setting of chronic SIADH based on her previous admissions and borderline urine sodium. She quickly improved back to baseline sodium levels much more quickly than expected with resolution of her symptoms. She was eating well and tolerating her diet well. Patient wished to discuss her current medications, and her duloxetine does have an increased risk of SIADH. She wished to stop this but taper was advised instead. She was sent home on 40 mg daily, with plan for continued taper per her PCP. Recommend repeat evaluation as an outpatient as well to help determine if there is a chronic SIADH component. Time Spent with Patient Time spent: Greater than 30 minutes Exam Vital Signs (past 8 hours): - 04/22/22 07:32 04/22/22 13:00 Oxygen Delivery Method Room Air Room Air Oxygen Delivery Method Room Air Oxygen Flow Rate 0 Narrative Exam Narrative: Gen: Alert, oriented, well-developed 71 y.o. female, no acute distress. HEENT: normocephalic, atraumatic, conjunctiva clear, sclera non-icteric, oral mucosa pink and moist Neck: supple, full ROM, no JVD, trachea is midline Resp: Lungs CTA, non-labored breathing CV: RRR, no murmur or rubs Abd: soft, non-tender, normoactive BTs Skin: no lesions or rashes, dry and intact Neuro: Alert and oriented X 4 w/no focal deficits. Speech clear and coherent. Extremities: moves all 4 extremities, is ambulatory, negative Curtis?s sign Psyche: slightly pressured speech but cooperative Objective Labs Result Diagrams: 04/22/22 02:25 04/22/22 11:40 Labs: Laboratory Results - last 24 hr 04/22/22 04/22/22 04/22/22 02:25 02:25 02:25 WBC 13.4 H RBC 4.22 Hgb 12.5 Hct 36.3 MCV 86.1 MCH 29.6 MCHC 34.4 RDW 13.0 Plt Count 510 H Neut % (Auto) 71.5 Lymph % (Auto) 22.7 L [place] % (Auto) 4.3 Eos % (Auto) 0.5 L Baso % (Auto) 1.0 Neut # (Auto) 9600 H Lymph # (Auto) 3000 [place] # (Auto) 600 Eos # (Auto) 100 Baso # (Auto) 100 Sodium 124 L Potassium 3.2 L Chloride 88 L Carbon Dioxide 20 L BUN 7 Creatinine 0.68 Estimated GFR > 60 BUN/Creatinine Ratio 10.3 Glucose 117 H Hemoglobin A1c Calcium 9.9 Total Bilirubin 0.4 AST 24 ALT 20 Alkaline Phosphatase 192 H Total Protein 9.3 H Albumin 5.3 H Globulin 4.0 Albumin/Globulin Ratio 1.3 Lipase 75 TSH 0.27 L Free T4 1.07 Ur Random Sodium Urine Creatinine U Opiates 300ng/mL cut Ur Oxycodone Screen Urine Methadone Screen Ur Barbiturates Screen U Tricyclic Antidepress Ur Phencyclidine Scrn Ur Amphetamines Screen U Methamphetamines Scrn Ur MDMA Scrn (Ecstasy) U Benzodiazepines Scrn Urine Cocaine Screen U Marijuana (THC) Screen SARS-CoV-2 (PCR) 04/22/22 04/22/22 04/22/22 02:25 03:00 03:00 WBC RBC Hgb Hct MCV MCH MCHC RDW Plt Count Neut % (Auto) Lymph % (Auto) [place] % (Auto) Eos % (Auto) Baso % (Auto) Neut # (Auto) Lymph # (Auto) [place] # (Auto) Eos # (Auto) Baso # (Auto) Sodium Potassium Chloride Carbon Dioxide BUN Creatinine Estimated GFR BUN/Creatinine Ratio Glucose Hemoglobin A1c 5.4 Calcium Total Bilirubin AST ALT Alkaline Phosphatase Total Protein Albumin Globulin Albumin/Globulin Ratio Lipase TSH Free T4 Ur Random Sodium 28 L Urine Creatinine U Opiates 300ng/mL cut Negative Ur Oxycodone Screen Negative Urine Methadone Screen Negative Ur Barbiturates Screen Negative U Tricyclic Antidepress Negative Ur Phencyclidine Scrn Negative Ur Amphetamines Screen Negative U Methamphetamines Scrn Negative Ur MDMA Scrn (Ecstasy) Negative U Benzodiazepines Scrn Negative Urine Cocaine Screen Negative U Marijuana (THC) Screen Negative SARS-CoV-2 (PCR) 04/22/22 04/22/22 04/22/22 03:00 03:15 11:40 WBC RBC Hgb Hct MCV MCH MCHC RDW Plt Count Neut % (Auto) Lymph % (Auto) [place] % (Auto) Eos % (Auto) Baso % (Auto) Neut # (Auto) Lymph # (Auto) [place] # (Auto) Eos # (Auto) Baso # (Auto) Sodium 132 L Potassium 3.4 Chloride 95 L Carbon Dioxide 26 BUN 9 Creatinine 0.73 Estimated GFR > 60 BUN/Creatinine Ratio 12.3 Glucose 96 Hemoglobin A1c Calcium 9.8 Total Bilirubin AST ALT Alkaline Phosphatase Total Protein Albumin Globulin Albumin/Globulin Ratio Lipase TSH Free T4 Ur Random Sodium Urine Creatinine 5.9 U Opiates 300ng/mL cut Ur Oxycodone Screen Urine Methadone Screen Ur Barbiturates Screen U Tricyclic Antidepress Ur Phencyclidine Scrn Ur Amphetamines Screen U Methamphetamines Scrn Ur MDMA Scrn (Ecstasy) U Benzodiazepines Scrn Urine Cocaine Screen U Marijuana (THC) Screen SARS-CoV-2 (PCR) Negative PFSH Medical History Bipolar disorder Eczema Hypertension Hypothyroidism (acquired) Surgical History Hx of cholecystectomy Family History (Updated 04/22/22 @ 04:48 by REBECA Power) Mother Alcohol abuse Father CVA (cerebral vascular accident) Social History household members: spouse Smoking Status: Never smoker alcohol intake: former Discharge Plan Discharge Plan Patient Disposition: Home Provider Discharge Comment: You were admitted to the hospital with a low sodium level. Likely due to increased water intake, chronic SIADH which may be due to your duloxetine. You wished to try and taper off of this medication. Reduced to 40 mg daily instead of 60 mg. Would recommend comprehensive med review with your PCP to discuss further medication adjustments and possibly continue to taper duloxetine if you are feeling well. Discharge orders & Medications Prescriptions: New duloxetine 40 mg capsule, delayed rel sprinkle 40 mg PO DAILY 30 Days Qty: 30 0RF Continued levothyroxine 75 mcg Tablet 50 mcg PO DAILY amlodipine 10 mg Tablet 10 mg PO BEDTIME quetiapine 50 mg Tablet 50 mg PO BID quetiapine 300 mg Tablet 300 mg PO BEDTIME metoclopramide HCl [Reglan] 10 mg tablet 10 mg PO Q6H PRN (Reason: nausea and vomiting) Qty: 14 0RF atorvastatin 20 mg tablet 20 mg PO BEDTIME methocarbamol 500 mg Tablet 500 mg PO BID trazodone 100 mg Tablet 100 mg PO BEDTIME betamethasone dipropionate 0.05 % cream 0.05 applic topical BID Label Comments: Apply topically 2 (two) times a day oxycodone 5 mg Tablet 5 mg PO TID PRN (Reason: pain) Discontinued duloxetine 60 mg Capsule, Delayed Rel Sprinkle 60 mg PO DAILY haloperidol 2 mg tablet 2 mg PO DAILY Qty: 30 0RF Follow up/Referrals: Dagmar Perdue ARNP [Primary Care Provider] - 2 Weeks Diet/Activity/Treatments Diet: Diet as Tolerated Diet comment: Keep liquid intake to less than 2 L per day. Activity: As tolerated Discharge Data Primary Care Provider: Dagmar Perdue Quality VTE Deep Vein Thrombosis/Pulmonary Embolism Present on Admission: No
[2022-04-22 15:11] LABS: Bacteria Urine None Seen; RBC Urine 0-1/HPF (0-5/HPF); Squamous Epithelial Cell Urine None Seen (0-5/HPF); WBC Urine None Seen (0-5/HPF)
--- NOTE | 2022-04-22 15:54 | CM.DANOTE ---
Discharge Assessment Note: Case reviewed, met with A/O patient who is sitting up in bed, cooperative. Introduced self and role. Payer: Medicare and AARP PCP: Dagmar Perdue; Psych: Antonio 71 year old female admitted early this morning with nausea/vomiting, hyponatremia/hypokalemia, htn. She has h/o bipolar disorder. She is pleasant and interactive, Alert and Ox3. 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 She relies on him for transportation and home management. He will be working tomorrow so if she is discharged she will need a taxi voucher. Plan: Discharge home when medically cleared to care of spouse. She will need a taxi voucher if unable to come pick her up. SVITLANA Discharge Planning/Care Management CM Discharge Assessment Start: 04/22/22 15:52 Freq: Status: Active Protocol: Document 04/22/22 15:52 (Rec: 04/22/22 15:54 [id number]) Discharge Planning Assessment Assigned Commodity Specialist Shirin Ballesteros RN/DCP Advance Directives? No Advance Directives on File No History Provided By Patient Prior Living Arrangements Apartment/Condo Household Members spouse Type of transporation used prior to Relies on Others admit Independent with ADL's No: spouse helps Is patient alert and oriented? Yes Needs Assistance With Meal Prep,Managing Medications ,Home Chores / Shopping Caregiver for Another No Barriers to Discharge No Discharge Plan Home Referrals Initiated None needed Review Status In Process Next Review Type Continued Stay Review
[2022-04-23 18:14] LABS: Osmolality Urine 90 mOsmol/kg (.); Osmolality, Serum 258 mOsmol/kg (280-301)
== END 2022-04-22 16:00 | disposition home or self-care (01) | DRG 645 ==
LOC: ED 03:33 → AC 03:34
PROVIDERS: Internal Medicine; Admitting Provider Nurse Practitioner Family; Emergency Provider Emergency Medicine; PCP Nurse Practitioner Family; Referring Provider Emergency Medicine; Visit Provider Nurse Practitioner Family
DX: E22.2 Syndrome of inappropriate secretion of antidiuretic hormone (principal); R63.1 Polydipsia; E87.6 Hypokalemia; E03.9 Hypothyroidism, unspecified; I10 Essential (primary) hypertension; F31.9 Bipolar disorder, unspecified; Z20.822 Contact with and (suspected) exposure to COVID-19
CPT/HCPCS: 36415; 80048; 80053; 80305; 81003; 81015; 82570; 83036; 83690; 83930; 83935; 84300; 84439; 84443; 85025; 87635; 96374; 99283; C9803; J2405

== ENCOUNTER 2022-04-24 10:40 | Inpatient (IN) | payer MEDICARE, SELFPAY ==
[2022-04-24] VITALS (9 sets, daily range): BP systolic 118–152; BP diastolic 61–125; PULSE 76–109; RESP 16–22; TEMP 36.4–37; O2SAT 96–100; BMI 23.8
--- NOTE | 2022-04-24 11:02 | ED_ITS ---
HPI - Recheck/Abnormal Lab/Rx General Chief Complaint: Recheck/Abnormal Lab/Rx Stated Complaint: sodium poisoning Time Seen by Provider: 04/24/22 10:54 Source: patient and family Mode of arrival: Family Vehicle History of Present Illness HPI narrative: Patient is a 71-year-old female history of major depression, bipolar, hyponatremia thought to be polydipsia versus chronic SIADH was admitted that 18 for hyponatremia and discharge. She presents again today is she is convinced that her sodium is low she says she can just tell. She is demanding multiple warm blankets over her feet for her Raynaud's and does not understand why the blankets stay warm. (she currently has 3 blankets on) She also is complaining of chronic pain she used to be prescribed oxycodone but she overdosed on oxycodone April 02 and is no longer prescribed oxycodone. She complains of all-over body pain. Demanding that she get an oxycodone as well. She feels a little nauseous no vomiting. She can not tell me how much water she is been drinking since she is been home from the hospital. She says she has cups of water but she does not know how many. Related Data Home Medications Medication Instructions Recorded Confirmed amlodipine 10 mg tablet 10 mg PO BEDTIME 03/06/20 04/24/22 levothyroxine 75 mcg tablet 50 mcg PO DAILY 03/06/20 04/24/22 quetiapine 50 mg tablet 50 mg PO BID 03/06/20 04/24/22 quetiapine 300 mg tablet 300 mg PO BEDTIME 07/13/21 04/24/22 atorvastatin 20 mg tablet 20 mg PO BEDTIME 04/22/22 04/24/22 betamethasone dipropionate 0.05 % 0.05 applic topical BID eczema 04/22/22 04/24/22 topical cream methocarbamol 500 mg tablet 500 mg PO BID 04/22/22 04/24/22 oxycodone 5 mg tablet 5 mg PO TID PRN pain 04/22/22 04/24/22 trazodone 100 mg tablet 100 mg PO BEDTIME 04/22/22 04/24/22 Previous Rx's Medication Instructions Recorded metoclopramide HCl 10 mg tablet 10 mg PO Q6H PRN nausea and 08/27/21 (Reglan) vomiting #14 tabs duloxetine 40 mg capsule,delayed 40 mg PO DAILY 30 days #30 caps 04/22/22 release sprinkle Allergies Allergy/AdvReac Type Severity Reaction Status Date / Time Sulfa (Sulfonamide Allergy Unknown Verified 04/24/22 11:00 Antibiotics) desipramine Allergy Rash Verified 04/24/22 11:00 Review of Systems Review of Systems ROS Unobtainable: All systems reviewed & are unremarkable except as noted in HPI and below Patient History Medical History (Updated 04/24/22 @ 13:13 by Sariah Gomes DO) Bipolar disorder Eczema Hypertension Hypothyroidism (acquired) Surgical History Hx of cholecystectomy Family History (Updated 04/22/22 @ 04:48 by REBECA Power) Mother Alcohol abuse Father CVA (cerebral vascular accident) Social History household members: spouse Smoking Status: Never smoker alcohol intake: former Smoking Status: Never smoker alcohol intake frequency: 0-2 drinks per day Substance Use Type: does not use Exam Initial Vital Signs Initial Vital Signs: Vital Signs Temperature 97.6 F 04/24/22 10:55 Pulse Rate 109 H 04/24/22 10:55 Respiratory Rate 22 04/24/22 10:55 Blood Pressure 118/71 04/24/22 10:55 Pulse Oximetry 99 04/24/22 10:55 Oxygen Delivery Method 04/24/22 10:55 GENERAL: Alert 71-year-old female agitated HEENT: Head atraumatic,EOMI, pupils reactive, face symmetric, moist mucous membranes CARDIOVASCULAR: Regular rate and rhythm without murmurs, rubs or gallops. RESPIRATORY: Breath sounds equal bilaterally, no wheezes rales or rhonchi. ABDOMEN: Soft, nontender. Normoactive bowel sounds all 4 quadrants. No guarding or rebound. EXTREMITIES: Normal range of motion, no clubbing or edema. Neurovascularly intact NEUROLOGICAL: Alert and oriented x4.Normal gait and speech. SKIN: Warm, dry, no laceration, no petechiae, no rashes or lesions. Course Orders Ordered: ED Orders 04/24/22 11:50 Sodium Urine Random Stat 04/24/22 11:56 CBC Auto Diff [Complete Blood Count AUTO DIFF] Stat CMP [Comprehensive Metabolic Panel] Stat 04/24/22 11:59 Urinalysis and Microscopic Stat Urine Culture Stat 04/24/22 12:46 UA Complete [Urinalysis and Microscopic] Stat Amlodipine Besylate (Amlodipine 5 Mg Tablet) 10 mg PO BEDTIME ANDRESSA Atorvastatin Calcium (Atorvastatin 20 Mg Tablet) 20 mg PO BEDTIME ANDRESSA Duloxetine HCl (Duloxetine 20 Mg Capsule) 20 mg PO DAILY ANDRESSA Enoxaparin Sodium (Enoxaparin 40 Mg/0.4 Ml Syringe) 40 mg SUBCUT DAILY ANDRESSA POTASSIUM CHLORIDE IN WATER (Potassium Cl 10 Meq/100 Ml Karissa) 10 meq in 100 mls @ 100 mls/hr IV Q1H ANDRESSA Stop: 04/24/22 18:59 Last Admin: 04/24/22 18:17 Dose: 100 mls/hr Documented By: Infusion: 04/24/22 18:12 Dose: 100 mls/hr Documented By: Admin: 04/24/22 17:12 Dose: 100 mls/hr Documented By: Infusion: 04/24/22 16:17 Dose: 100 mls/hr Documented By: Admin: 04/24/22 15:17 Dose: 100 mls/hr Documented By: Infusion: 04/24/22 15:07 Dose: 100 mls/hr Documented By: Admin: 04/24/22 14:07 Dose: 100 mls/hr Documented By: MIRELLA Levothyroxine Sodium (Levothyroxine 50 Mcg Tablet) 50 mcg PO 0600 [facility] Metoclopramide HCl (Metoclopramide Hcl 10 Mg Tablet) 10 mg PO Q6H PRN PRN Reason: nausea and vomiting Naloxone HCl (Naloxone 0.4 Mg/Ml Vial) 0.2 mg IV Q2MIN PRN PRN Reason: Opiate Reversal Betamethasone Dipropionate 0.05 % Cream 0.05 applictn TOP BID [facility] Ondansetron HCl (Ondansetron 4 Mg Odt) 4 mg SL Q4HR PRN PRN Reason: Nausea Last Admin: 04/24/22 17:18 Dose: 4 mg Documented By: JOEY Oxycodone HCl (Oxycodone Ir 5 Mg Tablet) 5 mg PO TID PRN PRN Reason: pain Last Admin: 04/24/22 18:03 Dose: 5 mg Documented By: JOEY Quetiapine Fumarate (Quetiapine 25 Mg Tablet) 50 mg PO DAILY ANDRESSA Quetiapine Fumarate (Quetiapine 100 Mg Tablet) 300 mg PO BEDTIME ANDRESSA Trazodone HCl (Trazodone 100 Mg Tablet) 100 mg PO BEDTIME ANDRESSA Discontinued Medications Ketorolac Tromethamine (Ketorolac 30 Mg/Ml Vial) 15 mg IV NOW ONE Stop: 04/24/22 11:05 Last Admin: 04/24/22 14:06 Dose: 15 mg Documented By: SB Vital Signs Vital signs: Vital Signs - 8 hr 04/24/22 10:55 04/24/22 12:00 Temperature 97.6 F Pulse Rate 109 H 76 Respiratory Rate 22 16 Blood Pressure 118/71 122/86 Pulse Oximetry 99 97 Oxygen Delivery Method Room Air Room Air MDM - Recheck/Abnormal Lab/Rx Lab Data Result diagrams: 04/24/22 11:56 04/24/22 17:45 Labs: Lab Results 04/24/22 04/24/22 04/24/22 Range/Units 11:50 11:56 11:56 WBC 12.9 H (4.5-11.0) X10^3/uL RBC 3.92 L (4.0-5.2) X10^6/uL Hgb 11.5 L (12.0-16.0) g/dL Hct 34.1 L (36-46) % MCV 87.0 (80-100) fL MCH 29.3 (26-34) PG MCHC 33.7 (30-36) % RDW 12.9 (11.6-14.8) % Plt Count 408 H (150-400) X10^3/uL Neut % (Auto) 71.4 (50-75) % Lymph % (Auto) 20.8 L (25-40) % [place] % (Auto) 5.8 (3-14) % Eos % (Auto) 1.5 L (2-4) % Baso % (Auto) 0.5 (0-2) % Neut # (Auto) 9200 H (8900-8882) /uL Lymph # (Auto) 2700 (1518-6557) /uL [place] # (Auto) 700 (0-900) /uL Eos # (Auto) 200 (0-450) /uL Baso # (Auto) 100 (0-100) /uL Sodium 125 L (137-145) mmol/L Potassium 2.5 L* (3.4-5.1) mmol/L Chloride 89 L (98-107) mmol/L Carbon Dioxide 19 L (22-32) mmol/L BUN 6 L (7-17) mg/dL Creatinine 0.76 (0.52-1.04) mg/dL Estimated GFR > 60 (>60) mL/min BUN/Creatinine Ratio 7.9 (6-22) Glucose 130 H (80-110) mg/dL Calcium 9.3 (8.4-10.2) mg/dL Total Bilirubin 0.5 (0.2-1.3) mg/dL AST 24 (14-36) IU/L ALT 21 (<35) IU/L Alkaline Phosphatase 132 H (38-126) U/L Total Protein 8.4 H (6.3-8.2) g/dL Albumin 4.8 (3.5-5.0) g/dL Globulin 3.6 (1.7-4.1) g/dL Albumin/Globulin Ratio 1.3 (1.0-2.8) Urine Color Urine Appearance Urine pH (4.5-8.0) Ur Specific [place] (1.000-1.035) Urine Protein (Negative) Urine Glucose (UA) (Negative) g/dL Urine Ketones (NEGATIVE) Urine Occult Blood (Negative) Urine Nitrate (Negative) Urine Bilirubin (NEGATIVE) Urine Urobilinogen (0.2) E.U./dL Ur Leukocyte Esterase (NEGATIVE) Urine RBC (0-5/HPF) Urine WBC (0-5/HPF) Ur Squamous Epith Cells (0-5/HPF) Urine Bacteria (None) Ur Culture Indicated? Ur Random Sodium < 5 L (30-90) mmol/L 04/24/22 Range/Units 11:59 WBC (4.5-11.0) X10^3/uL RBC (4.0-5.2) X10^6/uL Hgb (12.0-16.0) g/dL Hct (36-46) % MCV (80-100) fL MCH (26-34) PG MCHC (30-36) % RDW (11.6-14.8) % Plt Count (150-400) X10^3/uL Neut % (Auto) (50-75) % Lymph % (Auto) (25-40) % [place] % (Auto) (3-14) % Eos % (Auto) (2-4) % Baso % (Auto) (0-2) % Neut # (Auto) (6318-2990) /uL Lymph # (Auto) (8589-5708) /uL [place] # (Auto) (0-900) /uL Eos # (Auto) (0-450) /uL Baso # (Auto) (0-100) /uL Sodium (137-145) mmol/L Potassium (3.4-5.1) mmol/L Chloride (98-107) mmol/L Carbon Dioxide (22-32) mmol/L BUN (7-17) mg/dL Creatinine (0.52-1.04) mg/dL Estimated GFR (>60) mL/min BUN/Creatinine Ratio (6-22) Glucose (80-110) mg/dL Calcium (8.4-10.2) mg/dL Total Bilirubin (0.2-1.3) mg/dL AST (14-36) IU/L ALT (<35) IU/L Alkaline Phosphatase (38-126) U/L Total Protein (6.3-8.2) g/dL Albumin (3.5-5.0) g/dL Globulin (1.7-4.1) g/dL Albumin/Globulin Ratio (1.0-2.8) Urine Color Yellow Urine Appearance Clear Urine pH 6.5 (4.5-8.0) Ur Specific [place] <=1.005 (1.000-1.035) Urine Protein Negative (Negative) Urine Glucose (UA) Negative (Negative) g/dL Urine Ketones Negative (NEGATIVE) Urine Occult Blood Trace-lysed (Negative) Urine Nitrate Negative (Negative) Urine Bilirubin Negative (NEGATIVE) Urine Urobilinogen 0.2 (0.2) E.U./dL Ur Leukocyte Esterase 1+ H (NEGATIVE) Urine RBC None seen (0-5/HPF) Urine WBC 1-5/hpf (0-5/HPF) Ur Squamous Epith Cells 5-10 /hpf H (0-5/HPF) Urine Bacteria Few (2-10) H (None) Ur Culture Indicated? 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 She is given Tylenol for her chronic pain. I suspect that she again had polydipsia home causing her hyponatremia. At this time her vitals are stable. No fever or sign of infection. Urinalysis has a very low specific gravity. Potassium is 2.5 K rider is started. Old records from previous admission and hospitalist notes have been reviewed. Dr. Thorpe updated on patient's symptoms test results and accepts for inpatient. 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
--- NOTE | 2022-04-24 11:10 | PC.NURSE ---
IV attempt - unsuccessful at this time - pt tolerated - family at bedside
--- NOTE | 2022-04-24 11:40 | PC.NURSE ---
Ambulatory to the bathroom with steady gait - accompanied by - clean catch UA collected
--- NOTE | 2022-04-24 11:50 | PC.NURSE ---
Lab at bedside fore blood draw - no IV established
[2022-04-24 12:04] LABS: Add Manual Diff / Slide Review NO; Basophils Absolute Auto 100 /uL (0-100); Basophils Percent Auto 0.5 % (0-2); Eosinophils Absolute Auto 200 /uL (0-450); Eosinophils Percent Auto 1.5 % (2-4); Hematocrit 34.1 % (36-46); Hemoglobin 11.5 g/dL (12.0-16.0); Lymphocytes Absolute Auto 2700 /uL (1100-4500); Lymphocytes Percent Auto 20.8 % (25-40); Mean Corpuscular HGB Conc 33.7 % (30-36); Mean Corpuscular Hemoglobin 29.3 PG (26-34); Monocytes Absolute Auto 700 /uL (0-900); Monocytes Percent Auto 5.8 % (3-14); Neutrophils Absolute Auto 9200 /uL (1500-7000); Neutrophils Percent Auto 71.4 % (50-75); Platelet Count 408 X10^3/uL (150-400); Red Blood Cell Count 3.92 X10^6/uL (4.0-5.2); Red Cell Distribution Width 12.9 % (11.6-14.8); White Blood Cell Count 12.9 X10^3/uL (4.5-11.0)
[2022-04-24 12:07] LABS: Appearance Urine UA CLEAR; Bilirubin Urine UA NEGATIVE (NEGATIVE); Color Urine UA YELLOW; Glucose Urine UA NEGATIVE (Negative); Ketones Urine UA NEGATIVE (NEGATIVE); Leukocyte Esterase Urine UA 1+ (NEGATIVE); Nitrite Urine UA NEGATIVE (Negative); Occult Blood Urine UA TRACE-LYSED (Negative); Protein Urine UA NEGATIVE (Negative); Specific Gravity Urine UA <=1.005 (1.000-1.035); Urobilinogen Urine UA 0.2 E.U./dL (0.2)
--- NOTE | 2022-04-24 12:15 | PC.NURSE ---
sitting on the bed reading her book - family at bedside - no needs voiced at this time - calm and cooperative
[2022-04-24 12:17] LABS: Alanine Aminotransferase 21 IU/L (<35); Albumin 4.8 g/dL (3.5-5.0); Albumin Globulin Ratio 1.3 (1.0-2.8); Alkaline Phosphatase 132 U/L (38-126); Aspartate Aminotransferase 24 IU/L (14-36); BUN Creatinine Ratio 7.9 (6-22); Bilirubin Total 0.5 mg/dL (0.2-1.3); Blood Urea Nitrogen 6 mg/dL (7-17); Calcium 9.3 mg/dL (8.4-10.2); Carbon Dioxide 19 mmol/L (22-32); Chloride 89 mmol/L (98-107); Estimated Glomerular Filt Rate > 60 mL/min (>60); Globulin 3.6 g/dL (1.7-4.1); Glucose 130 mg/dL (80-110); HEMOLYSIS < 15 (0-50); Sodium 125 mmol/L (137-145); Total Protein 8.4 g/dL (6.3-8.2)
[2022-04-24 12:17] LABS: Bacteria Urine Few (2-10); Culture Indicated Urine Specimen Cultured; RBC Urine None Seen (0-5/HPF); Squamous Epithelial Cell Urine 5-10 /HPF (0-5/HPF); WBC Urine 1-5/HPF (0-5/HPF); pH Urine UA 6.5 (4.5-8.0)
[2022-04-24 12:24] LABS: Potassium 2.5 mmol/L (3.4-5.1)
--- NOTE | 2022-04-24 12:50 | PC.NURSE ---
Ambulatory to the bathroom with steady gait
--- NOTE | 2022-04-24 13:30 | PC.NURSE ---
COVID swab performed at this time - tolerated well
--- NOTE | 2022-04-24 13:45 | PC.NURSE ---
Report called to ADRIAN Acosta - pt to be transferred to room 205
[2022-04-24] MEDS: KETOROLAC 30 MG/ML VIAL 15 MG IV (14:06)
[2022-04-24] MEDS: POTASSIUM CHLORIDE IN WATER 10 MEQ/100 ML PIGGYBACK 100 MEQ IV ×6 (14:07→22:28)
[2022-04-24 15:19] LABS: COVID19 -Nasal RAPID Negative (Negative)
[2022-04-24 16:12] LABS: Sodium Urine Random < 5 mmol/L (30-90)
[2022-04-24] MEDS: ONDANSETRON 4 MG ODT SL (17:18)
[2022-04-24] MEDS: OXYCODONE IR 5 MG TABLET PO (18:03)
[2022-04-24 18:14] LABS: Blood Urea Nitrogen 8 mg/dL (7-17); Calcium 9.2 mg/dL (8.4-10.2); Carbon Dioxide 26 mmol/L (22-32); Chloride 94 mmol/L (98-107); Estimated Glomerular Filt Rate > 60 mL/min (>60); Glucose 114 mg/dL (80-110); HEMOLYSIS < 15 (0-50); Potassium 3.6 mmol/L (3.4-5.1); Sodium 129 mmol/L (137-145)
--- NOTE | 2022-04-24 21:02 | P.HP_ITS ---
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 Patient has had 3 ED visits to include opiate overdose in 2021 in addition to hospitali zed for hyponatremia on 07/13, and 04/22/2022. In the ED She presented again today convinced that her sodium was low she says she can just tell.? She is demanding multiple warm blankets complaining of being severely cold and of her chronic pain she used to be prescribed oxycodone but she overdosed on oxycodone 04/02/2022 and is no longer prescribed oxycodone, but is demanding that she get an oxycodone.? She feels a little nauseous no vomiting.? She was unable tell much water she has been drinking since she is been home from the hospital.? She says she has cups of water but she does not know how many. The patient denies chest pain, shortness of breath, abdominal pain, vomiting, fever, chills, cough, congestion, headache, new onset weakness, numbness, tingling, recent illness, injury or trauma with the exception of recent hospitalization and discharged from the hospital within the past 48 hours. At the time of admit patient's vitals temp 98.6?, BP 141/67, HR 88 RR 16, O2 saturation 99% on room air. Patient is resting comfortably and in no distress at this time. WBC 12.9 with a small left shift neutrophils 9200, H&H 11.5/34.1, platelets 408, repeat sodium 129, chlor in ED initial sodium 125, potassium 2.5, blood sugar 130. Repeat levels on admit sodium 129, potassium 3.6, glucose 114, total protein 8.4, urine sodium negative, urinalysis was positive and sent for culture, alk-phos 132. 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 Patient History Medical History Bipolar disorder Eczema Hypertension Hypothyroidism (acquired) Surgical History Hx of cholecystectomy Family & Social History Family History Mother Alcohol abuse Father CVA (cerebral vascular accident) Social History: household members spouse Safety & Behavioral: Feels Safe in Current Yes Environment Been Physically Hurt or No Threatened By a Person Tobacco & Substance use: Smoking Status Never smoker alcohol intake former alcohol intake frequency 0-2 drinks per day Substance Use Type does not use Meds Home Medications and Allergies Home Medications Medication Instructions Recorded Confirmed Type amlodipine 10 mg tablet 10 mg PO BEDTIME 03/06/20 04/24/22 History levothyroxine 75 mcg tablet 50 mcg PO DAILY 03/06/20 04/24/22 History quetiapine 50 mg tablet 50 mg PO BID 03/06/20 04/24/22 History quetiapine 300 mg tablet 300 mg PO BEDTIME 07/13/21 04/24/22 History metoclopramide HCl 10 mg tablet 10 mg PO Q6H PRN nausea and 08/27/21 04/24/22 Rx (Reglan) vomiting #14 tabs atorvastatin 20 mg tablet 20 mg PO BEDTIME 04/22/22 04/24/22 History betamethasone dipropionate 0.05 % 0.05 applic topical BID eczema 04/22/22 04/24/22 History topical cream duloxetine 40 mg capsule,delayed 40 mg PO DAILY 30 days #30 caps 04/22/22 04/24/22 Rx release sprinkle methocarbamol 500 mg tablet 500 mg PO BID 04/22/22 04/24/22 History oxycodone 5 mg tablet 5 mg PO TID PRN pain 04/22/22 04/24/22 History trazodone 100 mg tablet 100 mg PO BEDTIME 04/22/22 04/24/22 History Allergies Allergy/AdvReac Type Severity Reaction Status Date / Time Sulfa (Sulfonamide Allergy Unknown Verified 04/24/22 11:00 Antibiotics) desipramine Allergy Rash Verified 04/24/22 11:00 Review of Systems Review of Systems Narrative: All 12 point systems reviewed with the patient and are negative except otherwise documented. Exam Vital Signs (past 8 hours): - 04/24/22 13:33 04/24/22 14:45 04/24/22 16:52 Temperature 98.6 F Pulse Rate 95 H 105 H Respiratory Rate 16 Blood Pressure 152/125 H Pulse Oximetry 100 99 99 Oxygen Delivery Method Room Air Oxygen Flow Rate 0 0 Oxygen Delivery Method Room Air Oxygen Flow Rate 0 Narrative Exam Narrative: General: Patient is a well-developed, well-nourished female sitting up eating a sandwich, pleasant cooperative and in no distress at this time. HEENT: Normocephalic, atraumatic, extraocular muscles intact, oral pharynx is clear and mucous membranes are moist. Neck is supple and symmetric, trachea is midline, no adenopathy, no thyroid enlargement, nontender, no masses palpated. Negative for JVD Chest: Normal AP diameter and contour without kyphoscoliosis, no nasal flaring, retractions, or tachypneic labored Lungs: Auscultation of all lung fay are clear without adventitious sounds, wheezes, rhonchi, or rales. Cardio: S1 & S2 with regular rate and rhythm without murmur, rubs, or gallops, no carotid bruit, no cardiac pulsations present. Abdomen: Soft nontender, negative for organomegaly, or masses. Bowel sounds are present in all 4 quadrants without guarding or rebound, no CVA tenderness. Musculoskeletal: Muscle strength and tone are equal within normal limits, no deformity, crepitus, effusions, cyanosis, clubbing or edema present. Full range of motion intact radial and pedal pulses are normal. Skin: Warm dry and intact without rashes, ulcerations or petechiae. Neuro: Alert and orientated x3, strength is +5/5 in all extremities, sensation to touch intact, no gross deficits noted of cranial nerves. Psych: Patient has a well-kept appearance, appropriate affect, mental status attitude thought context and judgment are appropriate for age. Objective Labs Result Diagrams: 04/24/22 11:56 04/24/22 17:45 Labs: Laboratory Results - last 24 hr 04/24/22 04/24/22 04/24/22 11:50 11:56 11:56 WBC 12.9 H RBC 3.92 L Hgb 11.5 L Hct 34.1 L MCV 87.0 MCH 29.3 MCHC 33.7 RDW 12.9 Plt Count 408 H Neut % (Auto) 71.4 Lymph % (Auto) 20.8 L [place] % (Auto) 5.8 Eos % (Auto) 1.5 L Baso % (Auto) 0.5 Neut # (Auto) 9200 H Lymph # (Auto) 2700 [place] # (Auto) 700 Eos # (Auto) 200 Baso # (Auto) 100 Sodium 125 L Potassium 2.5 L* Chloride 89 L Carbon Dioxide 19 L BUN 6 L Creatinine 0.76 Estimated GFR > 60 BUN/Creatinine Ratio 7.9 Glucose 130 H Calcium 9.3 Total Bilirubin 0.5 AST 24 ALT 21 Alkaline Phosphatase 132 H Total Protein 8.4 H Albumin 4.8 Globulin 3.6 Albumin/Globulin Ratio 1.3 Urine Color Urine Appearance Urine pH Ur Specific [place] Urine Protein Urine Glucose (UA) Urine Ketones Urine Occult Blood Urine Nitrate Urine Bilirubin Urine Urobilinogen Ur Leukocyte Esterase Urine RBC Urine WBC Ur Squamous Epith Cells Urine Bacteria Ur Culture Indicated? Ur Random Sodium < 5 L SARS-CoV-2 (PCR) 04/24/22 04/24/22 04/24/22 11:59 14:30 17:45 WBC RBC Hgb Hct MCV MCH MCHC RDW Plt Count Neut % (Auto) Lymph % (Auto) [place] % (Auto) Eos % (Auto) Baso % (Auto) Neut # (Auto) Lymph # (Auto) [place] # (Auto) Eos # (Auto) Baso # (Auto) Sodium 129 L Potassium 3.6 Chloride 94 L Carbon Dioxide 26 BUN 8 Creatinine 0.73 Estimated GFR > 60 BUN/Creatinine Ratio 11.0 Glucose 114 H Calcium 9.2 Total Bilirubin AST ALT Alkaline Phosphatase Total Protein Albumin Globulin Albumin/Globulin Ratio Urine Color Yellow Urine Appearance Clear Urine pH 6.5 Ur Specific [place] <=1.005 Urine Protein Negative Urine Glucose (UA) Negative Urine Ketones Negative Urine Occult Blood Trace-lysed Urine Nitrate Negative Urine Bilirubin Negative Urine Urobilinogen 0.2 Ur Leukocyte Esterase 1+ H Urine RBC None seen Urine WBC 1-5/hpf Ur Squamous Epith Cells 5-10 /hpf H Urine Bacteria Few (2-10) H Ur Culture Indicated? 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 Patient has had 3 ED visits to include opiate overdose 03/2022 in addition to hospitalized for hyponatremia on 07/13, and 04/22/2022, her discharge being within the last 48 hrs. Patient admitted as an inpatient for a sodium of 125, and hypokalemia. At the time of admit patient's vitals temp 98.6?, BP 141/67, HR 88 RR 16, O2 saturation 99% on room air. Patient is resting comfortably and in no distress at this time. WBC 12.9 with a small left shift neutrophils 9200, H&H 11.5/34.1, platelets 408, repeat sodium 129, chlor in ED initial sodium 125, potassium 2.5, blood sugar 130. Repeat levels on admit sodium 129, potassium 3.6, glucose 114, total protein 8.4, urine sodium negative, urinalysis was positive and sent for culture, alk-phos 132. 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 1. 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 cortisol r/o DI & AI 2. Hypokalemia, acute and present on admission * In ED potassium is 2.5 -40 mEq given repeat 3.6 * Monitor electrolytes 3. Leukocytosis, neutrophilic, acute, unknown etiology, likely secondary to hyponatremia/hypokalemia, present on admission -WBC 12.9 with a small left shift neutrophils 9200-monitor inflammatory markers likely secondary to UTI -Will order antibiotics based on culture results and or changes to clinical presentation. 4.Bipolar disorder, acute on chronic, present on admission * Psychiatry consult completed on previous admit * On discharge 04/22/2022 patient was discharged on Wellbutrin 40 mg with a plan for her to follow up with her PCP to taper off due to its impact on the hyponatremia. * Recommend patient follow up with PCP to continue tapering off Wellbutrin * Continue Seroquel and trazodone 5. Essential hypertension, chronic, present on admission * Continue amlodipine 6. Hyperlipidemia, chronic, present on admission -continue Lipitor 7. Hypothyroidism, acquired, chronic, present on admission -ordered TSH/T4 -continue levothyroxine 8. Chronic Pain, acute on chronic, present on admission -ED visits to include opiate overdose 03/2022- Holding Oxycodone -toradol for pain management Code status:Full Surrogate decision maker: Britton Spouse COVID PCR:Negative DVT/VTE prophylaxis: Lovenox and SCDs Disposition: Patient admitted as inpatient due to sodium 125- for correction of hyponatremia hypokalemia, expected length of stay greater than 2 midnights. I have utilized all available immediate resources to obtain, update, or review the patient's current medications. I confirmed that the patient's advanced care plan is present, Code status is documented and/or surrogate decision maker is listed in the patient's medical record. I have personally reviewed patient's chart notes from PCP, specialists, diagnostic imaging, and laboratory, Patient is admitted to the inpatient service due to the severity of disease, risks of further disease progression and this stay is expected to exceed 2 midnights. Time Spent With Patient Critical Care time: I spent a total of [] minutes of critical care time on this patient's care today; this time is exclusive of procedural time.
[2022-04-24] MEDS: ATORVASTATIN 20 MG TABLET PO (22:09)
[2022-04-24] MEDS: TRAZODONE 100 MG TABLET PO (22:09)
[2022-04-24] MEDS: QUETIAPINE 25 MG TABLET 50 MG PO (22:09)
[2022-04-24] MEDS: AMLODIPINE 5 MG TABLET 10 MG PO (22:09)
[2022-04-24] MEDS: QUETIAPINE 100 MG TABLET 300 MG PO (22:10)
[2022-04-24] MEDS: BETAMETHASONE DIPROPIONATE 0.05% 0.05 EACH TOP (22:11)
[2022-04-24 23:38] LABS: Hemoglobin A1C% w Est Avg Glu 5.4 % (4.0-6.0)
[2022-04-25] VITALS (10 sets, daily range): BP systolic 105–154; BP diastolic 57–79; PULSE 82–124; RESP 18–21; TEMP 35.7–36.5; O2SAT 97–100
[2022-04-25] MEDS: KETOROLAC 10 MG TABLET PO ×2 (01:40→22:02)
[2022-04-25] MEDS: METOPROLOL TARTRATE 5 MG/5 ML INJ IV (03:30)
[2022-04-25] MEDS: LORazepam 1 MG TABLET PO (03:59)
[2022-04-25 04:16] LABS: Add Manual Diff / Slide Review NO; Basophils Absolute Auto 100 /uL (0-100); Basophils Percent Auto 1.2 % (0-2); Eosinophils Absolute Auto 100 /uL (0-450); Eosinophils Percent Auto 1.2 % (2-4); Hematocrit 32.2 % (36-46); Hemoglobin 11.1 g/dL (12.0-16.0); Lymphocytes Absolute Auto 2800 /uL (1100-4500); Lymphocytes Percent Auto 24.8 % (25-40); Mean Corpuscular HGB Conc 34.3 % (30-36); Mean Corpuscular Hemoglobin 29.6 PG (26-34); Mean Corpuscular Volume 86.3 fL (80-100); Monocytes Absolute Auto 700 /uL (0-900); Neutrophils Absolute Auto 7500 /uL (1500-7000); Neutrophils Percent Auto 66.8 % (50-75); Platelet Count 407 X10^3/uL (150-400); Red Blood Cell Count 3.73 X10^6/uL (4.0-5.2); Red Cell Distribution Width 13.1 % (11.6-14.8); White Blood Cell Count 11.2 X10^3/uL (4.5-11.0)
[2022-04-25 04:26] LABS: Alanine Aminotransferase 17 IU/L (<35); Albumin 4.2 g/dL (3.5-5.0); Albumin Globulin Ratio 1.3 (1.0-2.8); Alkaline Phosphatase 136 U/L (38-126); Aspartate Aminotransferase 19 IU/L (14-36); BUN Creatinine Ratio 12.2 (6-22); Bilirubin Total 0.3 mg/dL (0.2-1.3); Blood Urea Nitrogen 10 mg/dL (7-17); Calcium 9.1 mg/dL (8.4-10.2); Carbon Dioxide 23 mmol/L (22-32); Chloride 103 mmol/L (98-107); Estimated Glomerular Filt Rate > 60 mL/min (>60); Globulin 3.3 g/dL (1.7-4.1); Glucose 102 mg/dL (80-110); HEMOLYSIS < 15 (0-50); Magnesium 1.5 mg/dL (1.6-2.3); Potassium 3.9 mmol/L (3.4-5.1); Sodium 136 mmol/L (137-145); Total Protein 7.5 g/dL (6.3-8.2)
[2022-04-25] MEDS: MAGNESIUM SULFATE 2 GM/50 ML PIGGYBACK IV ×2 (04:44→08:17)
[2022-04-25 05:10] LABS: Cortisol AM (Before 10AM) 3.04 ug/dL (4.46-22.7)
[2022-04-25] MEDS: LEVOTHYROXINE 50 MCG TABLET PO (05:24)
--- NOTE | 2022-04-25 11:28 | DIET.CONS2 ---
Dietary Inpatient Consultation Note Admission Date: 04/24/2022 12:49 RD provided pt and spouse fluid restriction education, limiting beverages to five 8oz portions daily. Provided pt laminated chart she can use to daquan off each portion she consumes in a week. Diet: 04/24/22 Dinner Fluid Restriction Diet Diet Modifications: Total fluid amount: 1,200 Amount allotted to patient trays: 700 Fluid in addition to trays: 1533-7797 amount: 800 [id number] amount: 400 04/25/22 Breakfast General (Regular) Diet Diet Modifications: Electronically Signed by: Monika Randolph 04/25/22 11:28 Clinical Dietitian [address] [id number]
--- NOTE | 2022-04-25 18:35 | PC.NURSE ---
Pt has been sleeping all day and has requested that she be left alone to sleep. Spouse is rooming-in and states this is not unusual for her to sleep for 24hrs or more when she is feeling run down. Pt up to br to void but missed the hat so unable to send lab sample for urine osmolality. Pt was steady on her feet. Denies pain or nausea. Back to bed with warm blankets and agrees to call for assistance as needed.
--- NOTE | 2022-04-25 18:49 | P.PN_ITS ---
Subjective Subjective Date Patient Seen: 04/25/22 Interval history: 71 F re-admit with hyponatremia. Her sodium has improved with fluid restriction, with low urine sodium and low specific gravity most likely etiology remains excessive water intake. reports she has not slept in multiple days, and patient is feeling improved today but has slept much of the day. Exam Vital Signs (past 8 hours): - 04/25/22 11:58 04/25/22 16:00 04/25/22 16:21 Temperature 97.0 F L Pulse Rate 121 H Respiratory Rate 18 Blood Pressure 154/79 H Pulse Oximetry 98 98 98 Oxygen Delivery Method Room Air Room Air Oxygen Flow Rate 0 0 0 Oxygen Delivery Method Room Air Oxygen Flow Rate 0 Narrative Exam Narrative: Gen: Alert, oriented, well-developed 71 y.o. female, no acute distress. HEENT: normocephalic, atraumatic, conjunctiva clear, sclera non-icteric, oral mucosa pink and moist Neck: supple, full ROM, no JVD, trachea is midline Resp: Lungs CTA, non-labored breathing CV: RRR, no murmur or rubs Abd: soft, non-tender, normoactive BTs Skin: no lesions or rashes, dry and intact Neuro: Alert and oriented X 4 w/no focal deficits. Speech clear and coherent. Extremities: no edema or joint effusions Objective Labs Result Diagrams: 04/25/22 04:03 04/25/22 04:03 Labs: Laboratory Results - last 24 hr 04/24/22 04/25/22 04/25/22 11:56 04:03 04:03 WBC 11.2 H RBC 3.73 L Hgb 11.1 L Hct 32.2 L MCV 86.3 MCH 29.6 MCHC 34.3 RDW 13.1 Plt Count 407 H Neut % (Auto) 66.8 Lymph % (Auto) 24.8 L [place] % (Auto) 6.0 Eos % (Auto) 1.2 L Baso % (Auto) 1.2 Neut # (Auto) 7500 H Lymph # (Auto) 2800 [place] # (Auto) 700 Eos # (Auto) 100 Baso # (Auto) 100 Sodium 136 L Potassium 3.9 Chloride 103 Carbon Dioxide 23 BUN 10 Creatinine 0.82 Estimated GFR > 60 BUN/Creatinine Ratio 12.2 Glucose 102 Hemoglobin A1c 5.4 Calcium 9.1 Magnesium 1.5 L Total Bilirubin 0.3 AST 19 ALT 17 Alkaline Phosphatase 136 H Total Protein 7.5 Albumin 4.2 Globulin 3.3 Albumin/Globulin Ratio 1.3 Cortisol AM Sample 04/25/22 04:03 WBC RBC Hgb Hct MCV MCH MCHC RDW Plt Count Neut % (Auto) Lymph % (Auto) [place] % (Auto) Eos % (Auto) Baso % (Auto) Neut # (Auto) Lymph # (Auto) [place] # (Auto) Eos # (Auto) Baso # (Auto) Sodium Potassium Chloride Carbon Dioxide BUN Creatinine Estimated GFR BUN/Creatinine Ratio Glucose Hemoglobin A1c Calcium Magnesium Total Bilirubin AST ALT Alkaline Phosphatase Total Protein Albumin Globulin Albumin/Globulin Ratio Cortisol AM Sample 3.04 L [facility] Medical History Bipolar disorder Eczema Hypertension Hypothyroidism (acquired) Surgical History Hx of cholecystectomy Family History Mother Alcohol abuse Father CVA (cerebral vascular accident) Social History household members: spouse Smoking Status: Never smoker alcohol intake: former Assessment & Plan Assessment & Plan narrative: Camilla Kim is a 71-year-old female history of major depression, bipolar, essential hypertension, hypothyroidism, hx of opiate overdose, and 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 Patient has had 3 ED visits to include opiate overdose 03/2022 in addition to hospitalized for hyponatremia on 07/13, and 04/22/2022, her discharge being within the last 48 hrs. Patient admitted as an inpatient for a sodium of 125, and hypokalemia. 1. 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 * repeat urine studies ordered to reassess after a day of fluid restriction. If improved this highly suggests excess water intake rather than a central or nephrogenic diabetes insipidus or SIADH. * low AM cortisol, though do not suspect this to be related to her current symptoms, recommend outpatient cortisol stimulation test with PCP. 2. Hypokalemia, acute and present on admission * continue to monitor and replete, likely due to excess water intake as well. 3. Leukocytosis, neutrophilic, acute, unknown etiology, likely secondary to hyponatremia/hypokalemia, present on admission -WBC 12.9 likely reactive to current stress. 4.Bipolar disorder, acute on chronic, present on admission * Psychiatry consult completed on previous admit * On discharge 04/22/2022 patient was discharged on Wellbutrin 40 mg with a plan for her to follow up with her PCP to taper off due to its impact on the hyponatremia. * Recommend patient follow up with PCP to continue tapering off Wellbutrin * Continue Seroquel and trazodone 5. Essential hypertension, chronic, present on admission * Continue amlodipine 6. Hyperlipidemia, chronic, present on admission -continue Lipitor 7. Hypothyroidism, acquired, chronic, present on admission -continue levothyroxine 8. Chronic Pain, acute on chronic, present on admission -ED visits to include opiate overdose 03/2022- Holding Oxycodone -toradol for pain management 9. Hypomagnesemia - replete as needed. Code status:Full Surrogate decision maker: Britton Spouse COVID PCR:Negative DVT/VTE prophylaxis: Lovenox and SCDs Disposition: Patient admitted as inpatient due to sodium 125- for correction of hyponatremia hypokalemia, expected length of stay greater than 2 midnights. Likely discharge home tomorrow if sodium remains stable, to help solidify most likely etiology of excess water intake as well. Time Spent With Patient Critical Care time: I spent a total of [] minutes of critical care time on this patient's care today; this time is exclusive of procedural time.
[2022-04-25] MEDS: QUETIAPINE 100 MG TABLET 300 MG PO (21:52)
[2022-04-25] MEDS: AMLODIPINE 5 MG TABLET 10 MG PO (21:53)
[2022-04-25] MEDS: ATORVASTATIN 20 MG TABLET PO (21:53)
[2022-04-25] MEDS: TRAZODONE 100 MG TABLET PO (21:53)
[2022-04-25] MEDS: ONDANSETRON 4 MG ODT SL (21:53)
[2022-04-26 01:36] VITALS: BP 113/63; PULSE 126; RESP 18; TEMP 36.4; O2SAT 98
[2022-04-26] MEDS: LORazepam 1 MG TABLET PO (03:43)
[2022-04-26 03:46] VITALS: O2SAT 100
[2022-04-26 03:47] VITALS: PULSE 110
[2022-04-26 05:40] VITALS: BP 96/73; PULSE 118; RESP 24; TEMP 36.3; O2SAT 97
[2022-04-26 05:51] LABS: Add Manual Diff / Slide Review NO; Basophils Absolute Auto 100 /uL (0-100); Eosinophils Absolute Auto 200 /uL (0-450); Eosinophils Percent Auto 1.7 % (2-4); Hematocrit 33.1 % (36-46); Hemoglobin 11.2 g/dL (12.0-16.0); Lymphocytes Absolute Auto 2900 /uL (1100-4500); Lymphocytes Percent Auto 27.6 % (25-40); Mean Corpuscular HGB Conc 33.8 % (30-36); Mean Corpuscular Hemoglobin 29.7 PG (26-34); Mean Corpuscular Volume 87.7 fL (80-100); Monocytes Absolute Auto 700 /uL (0-900); Monocytes Percent Auto 6.1 % (3-14); Neutrophils Absolute Auto 6800 /uL (1500-7000); Neutrophils Percent Auto 63.6 % (50-75); Platelet Count 446 X10^3/uL (150-400); Red Blood Cell Count 3.78 X10^6/uL (4.0-5.2); Red Cell Distribution Width 13.3 % (11.6-14.8); White Blood Cell Count 10.6 X10^3/uL (4.5-11.0)
[2022-04-26 05:55] LABS: Alanine Aminotransferase 17 IU/L (<35); Albumin 4.3 g/dL (3.5-5.0); Albumin Globulin Ratio 1.2 (1.0-2.8); Alkaline Phosphatase 131 U/L (38-126); Aspartate Aminotransferase 18 IU/L (14-36); Bilirubin Total 0.4 mg/dL (0.2-1.3); Blood Urea Nitrogen 17 mg/dL (7-17); Calcium 9.4 mg/dL (8.4-10.2); Carbon Dioxide 25 mmol/L (22-32); Chloride 101 mmol/L (98-107); Estimated Glomerular Filt Rate 56 mL/min (>60); Globulin 3.6 g/dL (1.7-4.1); Glucose 103 mg/dL (80-110); HEMOLYSIS < 15 (0-50); Magnesium 2.6 mg/dL (1.6-2.3); Potassium 3.7 mmol/L (3.4-5.1); Sodium 139 mmol/L (137-145); Total Protein 7.9 g/dL (6.3-8.2)
[2022-04-26] MEDS: LEVOTHYROXINE 50 MCG TABLET PO (06:12)
[2022-04-26 08:00] VITALS: O2SAT 100
--- NOTE | 2022-04-26 08:59 | P.DS_ITS ---
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 Patient has had 3 ED visits to include opiate overdose in 2021 in addition to hospit alized for hyponatremia on 07/13, and 04/22/2022. In the ED She presented again today convinced that her sodium was low she says she can just tell.? She is demanding multiple warm blankets complaining of being severely cold and of her chronic pain she used to be prescribed oxycodone but she overdosed on oxycodone 04/02/2022 and is no longer prescribed oxycodone, but is demanding that she get an oxycodone.? She feels a little nauseous no vomiting.? She was unable tell much water she has been drinking since she is been home from the hospital.? She says she has cups of water but she does not know how many. The patient denies chest pain, shortness of breath, abdominal pain, vomiting, fever, chills, cough, congestion, headache, new onset weakness, numbness, tingling, recent illness, injury or trauma with the exception of recent hospitalization and discharged from the hospital within the past 48 hours. At the time of admit patient's vitals temp 98.6?, BP 141/67, HR 88 RR 16, O2 saturation 99% on room air. Patient is resting comfortably and in no distress at this time. WBC 12.9 with a small left shift neutrophils 9200, H&H 11.5/34.1, platelets 408, repeat sodium 129, chlor in ED initial sodium 125, potassium 2.5, blood sugar 130. Repeat levels on admit sodium 129, potassium 3.6, glucose 114, total protein 8.4, urine sodium negative, urinalysis was positive and sent for culture, alk-phos 132. 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 Discharge Providers Provider Date of admission: 04/24/22 12:49 Discharge Date: 04/26/22 Primary care physician: REBECA Garcia Discharge provider: Edgar Thorpe DO Summary Hospital Course Discharge Diagnosis: 1. 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 Hypokalemia, acute and present on admission 3. Leukocytosis, neutrophilic, acute, resolved. 4.Bipolar disorder, acute on chronic, present on admission 5. Essential hypertension, chronic, present on admission 6. Hyperlipidemia, chronic, present on admission 7. Hypothyroidism, acquired, chronic, present on admission 8. Chronic Pain, acute on chronic, present on admission 9. Hypomagnesemia 10. 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 Patient has had 3 ED visits to include opiate overdose 03/2022 in addition to hospitalized for hyponatremia on 07/13, and 04/22/2022, her discharge being within the last 48 hrs.? Patient admitted as an inpatient for a sodium of 125, and hypokalemia. After evaluation with a very low specific gravity and low urine sodium, the most likely etiology of her hyponatremia appear to be increased water intake. She was placed on a 1.2 L fluid restriction diet, with gradual improvement in her sodium, and the day of discharge her sodium had improved to 139. She was also provided with supplemental potassium with improvement in her hypokalemia, normalizing as well on the day of discharge. As part of her evaluation, admitting provider ordered AM serum cortisol which was low. I do recommend outpatient stim testing with her primary care provider, as clinically she did not have other evidence of adrenal insufficiency and is not likely contributing to her hyponatremia given improvement with fluid restriction. Time Spent with Patient Time spent: Greater than 30 minutes Exam Vital Signs (past 8 hours): - 04/26/22 01:36 04/26/22 03:46 04/26/22 03:47 Temperature 97.6 F Pulse Rate 126 H 110 H Respiratory Rate 18 Blood Pressure 113/63 Pulse Oximetry 98 100 Oxygen Delivery Method Room Air Oxygen Flow Rate 0 0 04/26/22 05:40 Temperature 97.4 F L Pulse Rate 118 H Respiratory Rate 24 Blood Pressure 96/73 Pulse Oximetry 97 Oxygen Delivery Method Oxygen Flow Rate 0 Oxygen Delivery Method Room Air Oxygen Flow Rate 0 Narrative Exam Narrative: Gen: Alert, oriented, well-developed 71 y.o. female, no acute distress. HEENT: normocephalic, atraumatic, conjunctiva clear, sclera non-icteric, oral mucosa pink and moist Neck: supple, full ROM, no JVD, trachea is midline Resp: Lungs CTA, non-labored breathing CV: RRR, no murmur or rubs Abd: soft, non-tender, normoactive BTs Skin: no lesions or rashes, dry and intact Neuro: Alert and oriented X 4 w/no focal deficits. Speech clear and coherent. Extremities: no edema or joint effusions Objective Labs Result Diagrams: 04/26/22 05:25 04/26/22 05:25 Labs: Laboratory Results - last 24 hr 04/26/22 04/26/22 05:25 05:25 WBC 10.6 RBC 3.78 L Hgb 11.2 L Hct 33.1 L MCV 87.7 MCH 29.7 MCHC 33.8 RDW 13.3 Plt Count 446 H Neut % (Auto) 63.6 Lymph % (Auto) 27.6 [place] % (Auto) 6.1 Eos % (Auto) 1.7 L Baso % (Auto) 1.0 Neut # (Auto) 6800 Lymph # (Auto) 2900 [place] # (Auto) 700 Eos # (Auto) 200 Baso # (Auto) 100 Sodium 139 Potassium 3.7 Chloride 101 Carbon Dioxide 25 BUN 17 Creatinine 1.06 H Estimated GFR 56 L BUN/Creatinine Ratio 16.0 Glucose 103 Calcium 9.4 Magnesium 2.6 H Total Bilirubin 0.4 AST 18 ALT 17 Alkaline Phosphatase 131 H Total Protein 7.9 Albumin 4.3 Globulin 3.6 Albumin/Globulin Ratio 1.2 [facility] Medical History Bipolar disorder Eczema Hypertension Hypothyroidism (acquired) Surgical History Hx of cholecystectomy Family History Mother Alcohol abuse Father CVA (cerebral vascular accident) Social History household members: spouse Smoking Status: Never smoker alcohol intake: former Discharge Plan Discharge Plan Patient Disposition: Home Provider Discharge Comment: You were admitted to the hospital with a low sodium. Try to keep water intake / fluid intake to less than 2L per day maximum. Discharge orders & Medications Prescriptions: Continued levothyroxine 75 mcg Tablet 50 mcg PO DAILY amlodipine 10 mg Tablet 10 mg PO BEDTIME quetiapine 50 mg Tablet 50 mg PO BID quetiapine 300 mg Tablet 300 mg PO BEDTIME metoclopramide HCl [Reglan] 10 mg tablet 10 mg PO Q6H PRN (Reason: nausea and vomiting) Qty: 14 0RF atorvastatin 20 mg tablet 20 mg PO BEDTIME methocarbamol 500 mg Tablet 500 mg PO BID trazodone 100 mg Tablet 100 mg PO BEDTIME betamethasone dipropionate 0.05 % cream 0.05 applic topical BID Label Comments: Apply topically 2 (two) times a day oxycodone 5 mg Tablet 5 mg PO TID PRN (Reason: pain) duloxetine 40 mg capsule, delayed rel sprinkle 40 mg PO DAILY 30 Days Qty: 30 0RF Follow up/Referrals: Dagmar Perdue ARNP [Primary Care Provider] - Diet/Activity/Treatments Diet: Diet as Tolerated Activity: As tolerated Discharge Data Primary Care Provider: Dagmar Perdue
[2022-04-26 10:51] VITALS: BP 109/56; PULSE 117; RESP 20; TEMP 36.3; O2SAT 100
[2022-04-27 15:36] LABS: Osmolality Urine 608 mOsmol/kg (.)
== END 2022-04-26 12:00 | disposition home or self-care (01) | DRG 644 ==
LOC: ED 10:54 → AC 12:50
PROVIDERS: Nurse Practitioner Family; Admitting Provider Internal Medicine; Emergency Provider Emergency Medicine; PCP Nurse Practitioner Family; Referring Provider Emergency Medicine; Visit Provider Internal Medicine
DX: E22.2 Syndrome of inappropriate secretion of antidiuretic hormone (principal); E87.1 Hypo-osmolality and hyponatremia; R63.1 Polydipsia; E87.6 Hypokalemia; F31.9 Bipolar disorder, unspecified; I10 Essential (primary) hypertension; E78.5 Hyperlipidemia, unspecified; E03.9 Hypothyroidism, unspecified; G89.29 Other chronic pain; E83.42 Hypomagnesemia; L30.9 Dermatitis, unspecified; Z20.822 Contact with and (suspected) exposure to COVID-19
CPT/HCPCS: 36415; 80048; 80053; 81001; 82533; 83036; 83735; 83935; 84300; 85025; 87086; 87635; 96374; 99283; 99284; C9803; J1650; J1885; J3475

== ENCOUNTER 2022-05-08 05:20 | Emergency (ER) | payer MEDICARE, SELFPAY ==
[2022-04-24 12:54] VITALS: BMI 23.8
[2022-05-08 05:31] VITALS: BP 178/77; PULSE 105; RESP 18; TEMP 36.2; O2SAT 99; BMI 23.3
--- NOTE | 2022-05-08 06:06 | ED_ITS ---
HPI - Nausea/Vomiting/Diarrhea <Ciarra New, DO - Last Filed: 05/14/22 08:01> General Chief complaint: Nausea/Vomiting/Diarrhea Stated complaint: vomiting x 2 days, cant eat, cant sleep hx low sod Time Seen by Provider: 05/08/22 06:02 Source: patient Mode of arrival: Family Vehicle Limitations: no limitations History of Present Illness HPI Narrative: This is a 71-year-old female with history of anxiety, manic depression, hypertension, hypothyroidism and recurrent hyponatremia. Patient states since she was last hospitalized they decreased her duloxetine from 60-40 mg as they felt that was causing her to increase her fluid intake and causing hyponatremia. She states she has not been drinking fluids to the same extent. She states for the past 2 days she started having nausea and vomiting she has had not been able to really keep down any solids minimal fluids. Patient denies fevers or chills. She states she does not have a lot of pain until after palpation in the notes maybe a little bit more right-sided. She and her notes she is had diarrhea recently several times daily, they do not know any black or bloody stools. She denies dysuria, urgency or frequency. Patient has had cholecystectomy in the past. Denies tobacco, alcohol or illicit drug use. Related Data Home Medications Medication Instructions Recorded Confirmed amlodipine 10 mg tablet 10 mg PO BEDTIME 03/06/20 05/10/22 quetiapine 50 mg tablet 50 mg PO BID 03/06/20 05/10/22 quetiapine 300 mg tablet 300 mg PO BEDTIME 07/13/21 05/10/22 atorvastatin 20 mg tablet 20 mg PO BEDTIME 04/22/22 05/10/22 betamethasone dipropionate 0.05 % 0.05 applic topical BID eczema 04/22/22 05/10/22 topical cream methocarbamol 500 mg tablet 500 mg PO BID 04/22/22 05/10/22 oxycodone 5 mg tablet 5 mg PO TID PRN pain 04/22/22 05/10/22 trazodone 100 mg tablet 100 mg PO BEDTIME 04/22/22 05/10/22 Previous Rx's Medication Instructions Recorded metoclopramide HCl 10 mg tablet 10 mg PO Q6H PRN nausea and 08/27/21 (Reglan) vomiting #14 tabs duloxetine 40 mg capsule,delayed 40 mg PO DAILY 30 days #30 caps 04/22/22 release sprinkle ondansetron 4 mg disintegrating 4 mg PO Q8H PRN nausea and 05/08/22 tablet vomiting #14 tabs promethazine 25 mg rectal 25 mg DE Q6H PRN nausea and 05/08/22 suppository vomiting #6 ea levothyroxine 75 mcg tablet 75 mcg PO DAILY@0600 #30 tabs 05/13/22 (Synthroid) pantoprazole 20 mg tablet,delayed 20 mg PO 0600 #30 tabs 05/13/22 release potassium chloride 20 mEq/15 mL 20 meq (15 mL) PO BIDWM #1,200 mL 05/13/22 oral liquid Allergies Allergy/AdvReac Type Severity Reaction Status Date / Time Sulfa (Sulfonamide Allergy Unknown Verified 04/24/22 11:00 Antibiotics) desipramine Allergy Rash Verified 04/24/22 11:00 Review of Systems <Ciarra New DO - Last Filed: 05/14/22 08:01> Review of Systems ROS Unobtainable: All systems reviewed & are unremarkable except as noted in HPI and below Patient History <Ciarra New DO - Last Filed: 05/14/22 08:01> Medical History Bipolar disorder Eczema Hypertension Hypothyroidism (acquired) Surgical History Hx of cholecystectomy Family History Mother Alcohol abuse Father CVA (cerebral vascular accident) Social History household members: spouse Smoking Status: Never smoker alcohol intake: former Smoking Status: Never smoker alcohol intake frequency: 0-2 drinks per day Substance Use Type: does not use Exam <Ciarra New DO - Last Filed: 05/14/22 08:01> Narrative Exam Narrative: GENERAL: Alert and oriented x three, female in mild distress HEENT: Head normocephalic, atraumatic, EOMI, pupils reactive, face symmetric, moist mucous membranes NECK: Supple, full range of motion CARDIOVASCULAR: Regular rate and rhythm without murmurs, rubs or gallops. RESPIRATORY: Breath sounds equal bilaterally, no wheezes rales or rhonchi. ABDOMEN: Soft, mildly tender right-sided sort of mid abdomen. Normoactive bowel sounds all 4 quadrants. No guarding or rebound, rigidity, no mass, nondistended. : No CVA tenderness EXTREMITIES: Normal range of motion, no clubbing or edema. Neurovascularly intact NEUROLOGICAL: Cranial nerves II through XII grossly intact. Moving all extremities. Normal range of motion both upper and lower extremities. SKIN: Warm, dry, no petechiae, no rashes or lesions. PSYCH: Patient has pressured speech but similar to her typical speech pattern. Denies worsening of her anxiety or manic depression today. Initial Vital Signs Initial Vital Signs: Vital Signs Temperature 97.1 F L 05/08/22 05:31 Pulse Rate 105 H 05/08/22 05:31 Respiratory Rate 18 05/08/22 05:31 Blood Pressure 178/77 H 05/08/22 05:31 Pulse Oximetry 99 05/08/22 05:31 Oxygen Delivery Method 05/08/22 05:31 <Elda Freedman MD - Last Filed: 05/08/22 10:41> Initial Vital Signs Initial Vital Signs: Vital Signs Temperature 97.1 F L 05/08/22 05:31 Pulse Rate 105 H 05/08/22 05:31 Respiratory Rate 18 05/08/22 05:31 Blood Pressure 178/77 H 05/08/22 05:31 Pulse Oximetry 99 05/08/22 05:31 Oxygen Delivery Method 05/08/22 05:31 Course <Ciarra New DO - Last Filed: 05/14/22 08:01> Orders Ordered: Discontinued Medications Ondansetron HCl (Ondansetron 4 Mg Odt) 4 mg PO NOW PRN PRN Reason: Nausea And Vomiting Ondansetron HCl (Ondansetron 4 Mg/2 Ml Inj) 4 mg IV NOW PRN PRN Reason: Nausea And Vomiting Last Admin: 05/08/22 06:39 Dose: 4 mg Documented By: LARRY Oxycodone HCl (Oxycodone Ir 5 Mg Tablet) 5 mg PO NOW ONE Stop: 05/08/22 06:16 Last Admin: 05/08/22 06:39 Dose: 5 mg Documented By: LARRY Vital Signs Vital signs: Vital Signs - 8 hr 05/08/22 05:31 05/08/22 10:13 Temperature 97.1 F L Pulse Rate 105 H 79 Respiratory Rate 18 17 Blood Pressure 178/77 H 125/79 Pulse Oximetry 99 97 Oxygen Delivery Method Room Air Room Air <Elda Freedman MD - Last Filed: 05/08/22 10:41> Orders Ordered: Discontinued Medications Ondansetron HCl (Ondansetron 4 Mg Odt) 4 mg PO NOW PRN PRN Reason: Nausea And Vomiting Ondansetron HCl (Ondansetron 4 Mg/2 Ml Inj) 4 mg IV NOW PRN PRN Reason: Nausea And Vomiting Last Admin: 05/08/22 06:39 Dose: 4 mg Documented By: LARRY Oxycodone HCl (Oxycodone Ir 5 Mg Tablet) 5 mg PO NOW ONE Stop: 05/08/22 06:16 Last Admin: 05/08/22 06:39 Dose: 5 mg Documented By: LARRY Vital Signs Vital signs: Vital Signs - 8 hr 05/08/22 05:31 05/08/22 10:13 Temperature 97.1 F L Pulse Rate 105 H 79 Respiratory Rate 18 17 Blood Pressure 178/77 H 125/79 Pulse Oximetry 99 97 Oxygen Delivery Method Room Air Room Air MDM - Nausea/Vomiting/Diarrhea <Ciarra New DO - Last Filed: 05/14/22 08:01> Lab Data Result diagrams: 05/08/22 06:09 05/08/22 06:09 Labs: Lab Results 05/08/22 05/08/22 05/08/22 Range/Units 06:09 06:09 06:12 WBC 11.1 H (4.5-11.0) X10^3/uL RBC 3.91 L (4.0-5.2) X10^6/uL Hgb 11.4 L (12.0-16.0) g/dL Hct 33.9 L (36-46) % MCV 86.6 (80-100) fL MCH 29.1 (26-34) PG MCHC 33.6 (30-36) % RDW 12.8 (11.6-14.8) % Plt Count 466 H (150-400) X10^3/uL Neut % (Auto) 62.1 (50-75) % Lymph % (Auto) 29.1 (25-40) % [place] % (Auto) 6.9 (3-14) % Eos % (Auto) 0.6 L (2-4) % Baso % (Auto) 1.3 (0-2) % Neut # (Auto) 6900 (0435-2091) /uL Lymph # (Auto) 3200 (9301-8014) /uL [place] # (Auto) 800 (0-900) /uL Eos # (Auto) 100 (0-450) /uL Baso # (Auto) 100 (0-100) /uL Sodium 133 L (137-145) mmol/L Potassium 3.3 L (3.4-5.1) mmol/L Chloride 95 L (98-107) mmol/L Carbon Dioxide 24 (22-32) mmol/L BUN 9 (7-17) mg/dL Creatinine 0.92 (0.52-1.04) mg/dL Estimated GFR > 60 (>60) mL/min BUN/Creatinine Ratio 9.8 (6-22) Glucose 111 H (80-110) mg/dL Calcium 9.8 (8.4-10.2) mg/dL Total Bilirubin 0.6 (0.2-1.3) mg/dL AST 22 (14-36) IU/L ALT 17 (<35) IU/L Alkaline Phosphatase 173 H (38-126) U/L Total Protein 8.6 H (6.3-8.2) g/dL Albumin 4.7 (3.5-5.0) g/dL Globulin 3.9 (1.7-4.1) g/dL Albumin/Globulin Ratio 1.2 (1.0-2.8) Lipase 46 (23-300) U/L Urine RBC None seen (0-5/HPF) Urine WBC 1-5/hpf (0-5/HPF) Ur Squamous Epith Cells 1-5 /hpf (0-5/HPF) Urine Bacteria None seen (None) Ur Culture Indicated? Cult not indicated Urine Dip Bedside Urine Glucose Negative Bedside Urine Bilirubin - Negative Bedside Urine Ketone - Negative Urine Specific [place] 1.005 Bedside Urine Occult Blood +/- Bedside Urine pH 6.5 Bedside Urine Protein - Negative Bedside Urine Urobilinogen - Negative Bedside Urine Nitrite - Negative Bedside Urine Leukocytes - Negative Esterase MDM Narrative Medical decision making narrative: This is a 71-year old female who presents with persistent vomiting for the past 2 days very mild abdominal pain somewhat right-sided on exam. Patient does have a history of hyponatremia she states she has decreased her fluid intake significantly and they decreased her duloxetine as they felt this was possibly triggering her polydipsia. Patient's exam is overall reassuring. Repeat labs including CBC, CMP and lipase to evaluate for infection, electrolyte abnormalities as well as any LFT changes. Point of care urine showed blood, no leuks or nitrates reported. Sent for micro. CT abdomen pelvis as patient has had vomiting as well as diarrhea for the last several days. Patient signed out to Dr. Freedman while awaiting these results. Fluids were held as she is had hypervolemic hyponatremia in the past, was given Zofran and patient would like a dose of her oral pain medication this was ordered. <Elda Freedman MD - Last Filed: 05/08/22 10:41> Lab Data Labs: Lab Results 05/08/22 05/08/22 05/08/22 Range/Units 06:09 06:09 06:12 WBC 11.1 H (4.5-11.0) X10^3/uL RBC 3.91 L (4.0-5.2) X10^6/uL Hgb 11.4 L (12.0-16.0) g/dL Hct 33.9 L (36-46) % MCV 86.6 (80-100) fL MCH 29.1 (26-34) PG MCHC 33.6 (30-36) % RDW 12.8 (11.6-14.8) % Plt Count 466 H (150-400) X10^3/uL Neut % (Auto) 62.1 (50-75) % Lymph % (Auto) 29.1 (25-40) % [place] % (Auto) 6.9 (3-14) % Eos % (Auto) 0.6 L (2-4) % Baso % (Auto) 1.3 (0-2) % Neut # (Auto) 6900 (7444-3117) /uL Lymph # (Auto) 3200 (3954-2455) /uL [place] # (Auto) 800 (0-900) /uL Eos # (Auto) 100 (0-450) /uL Baso # (Auto) 100 (0-100) /uL Sodium 133 L (137-145) mmol/L Potassium 3.3 L (3.4-5.1) mmol/L Chloride 95 L (98-107) mmol/L Carbon Dioxide 24 (22-32) mmol/L BUN 9 (7-17) mg/dL Creatinine 0.92 (0.52-1.04) mg/dL Estimated GFR > 60 (>60) mL/min BUN/Creatinine Ratio 9.8 (6-22) Glucose 111 H (80-110) mg/dL Calcium 9.8 (8.4-10.2) mg/dL Total Bilirubin 0.6 (0.2-1.3) mg/dL AST 22 (14-36) IU/L ALT 17 (<35) IU/L Alkaline Phosphatase 173 H (38-126) U/L Total Protein 8.6 H (6.3-8.2) g/dL Albumin 4.7 (3.5-5.0) g/dL Globulin 3.9 (1.7-4.1) g/dL Albumin/Globulin Ratio 1.2 (1.0-2.8) Lipase 46 (23-300) U/L Urine RBC None seen (0-5/HPF) Urine WBC 1-5/hpf (0-5/HPF) Ur Squamous Epith Cells 1-5 /hpf (0-5/HPF) Urine Bacteria None seen (None) Ur Culture Indicated? Cult not indicated Urine Dip Bedside Urine Glucose Negative Bedside Urine Bilirubin - Negative Bedside Urine Ketone - Negative Urine Specific [place] 1.005 Bedside Urine Occult Blood +/- Bedside Urine pH 6.5 Bedside Urine Protein - Negative Bedside Urine Urobilinogen - Negative Bedside Urine Nitrite - Negative Bedside Urine Leukocytes - Negative Esterase Imaging Data CT scan - abdomen/pelvis: Radiologist's Impression: FINDINGS:? Image quality:? Excellent.? ? Lung bases:? Lung bases are clear.? Small hiatal hernia. Heart:? No significant findings. ? ABDOMEN: Liver:? Redemonstration of mild hepatic steatosis.? Stable appearance of numerous scattered hepatic hypodensities likely representing cysts or hemangiomas. Gallbladder:? Status post cholecystectomy. Biliary ducts:? No intrahepatic biliary ductal dilatation.? Stable appearance of prominent common bile duct likely related to prior cholecystectomy. Pancreas:? Unremarkable.? ? Spleen:? Unremarkable.? ? Adrenal Glands:? Unremarkable.? ? Kidneys and Ureters:? Unremarkable.? No evidence for obstructive uropathy.? Stable right renal hypodensity likely representing a cyst. ? ? Stomach and Bowel:? Stomach appears unremarkable.? Multiple fluid-filled loops of small bowel and colon without abnormal wall thickening or inflammatory stranding.? Scattered colonic diverticulosis. Peritoneum:? No abnormal intraperitoneal fluid.? No free air.? ? Ventral Wall: ? No hernias.? Abdominal Nodes:? No retroperitoneal or mesenteric adenopathy by size criteria.? Vessels: Scattered atherosclerotic calcifications of the abdominal aorta and iliac vessels without aneurysmal dilatation.? The inferior vena cava appears patent. ? PELVIS: Pelvic Organs:? Unremarkable.? ? Bladder:? Unremarkable.? ? Pelvic Nodes: No enlarged lymph nodes.? Miscellaneous: No hernias are seen. ? ? ? Bones: No acute vertebral body compression fractures. Multilevel spondylitic changes throughout the imaged spine.? No suspicious osseous lesions. ? ? IMPRESSION:? ? 1. Multiple fluid-filled loops of small bowel and colon without evidence for obstruction or acute inflammatory changes.? Findings are nonspecific and may represent sequela of enteritis/colitis either infectious or inflammatory in etiology.? Otherwise, no acute abnormalities identified in the abdomen or pelvis. ? 2. Colonic diverticulosis without acute diverticulitis. ? 3. Small hiatal hernia, stable. ? 4. Hepatic steatosis. ? 5. Status post cholecystectomy with stable appearance of post cholecystectomy physiologic dilatation of the common bile duct. ? 6. Atherosclerosis.? ? ? Dictated by: Herrera Husain M.D. on 05/08/2022 at 7:58 ? ? MDM Narrative Medical decision making narrative: This is a 71-year old female who presents with persistent vomiting for the past 2 days very mild abdominal pain somewhat right-sided on exam. Patient does have a history of hyponatremia she states she has decreased her fluid intake significantly and they decreased her duloxetine as they felt this was possibly triggering her polydipsia. Patient's exam is overall reassuring. Repeat labs including CBC, CMP and lipase to evaluate for infection, electrolyte ab normalities as well as any LFT changes. Point of care urine showed blood, no leuks or nitrates reported. Sent for micro. CT abdomen pelvis as patient has had vomiting as well as diarrhea for the last several days. Patient signed out to Dr. Freedman while awaiting these results. Fluids were held as she is had hypervolemic hyponatremia in the past, was given Zofran and patient would like a dose of her oral pain medication this was ordered. Dr Freedman 920am patient is independently evaluated. CT scan is reviewed as is blood work. She is feeling somewhat better has not had any diarrhea for 24 hours, has not vomited since prior to coming to the emergency room this morning. Notes that the Zofran has made a slight difference in her overall nausea and is willing to try quentin jessica at this time. CT scan suggests an enteritis without obstruction. No sign of sepsis, intra- abdominal abscess, mild low potassium level and she tolerated an oral potassium tablet. Sodium is not low today and she is quite proud of herself that she has been avoiding drinking water to create recurrent hyponatremia. Explained to her my suspicion that this is a viral enteritis and will simply need to run its course and may need a few more days. She did tolerate quentin jessica. We talked about Zofran ODT and Phenergan suppository for backup along with anticipated course and discharge home. Discharge Plan Departure Patient Disposition: Home Clinical Impression: Gastroenteritis Instructions: DI for Viral Gastroenteritis -- Adult Activity Restrictions/Additional Instructions: Thank you for coming in today Your lab work is relatively reassuring, the minor abnormalities should resolve without additional treatment. Your CT scan suggests that you have a viral gastroenteritis. This typically takes couple of days and your body will work its way through. In the meantime, using nausea medication and trying to stay hydrated will be helpful. I would recommend either Children's Pedialyte or Gatorade or 1 of the sports electrolyte solutions that are available [id number] to keep yourself hydrated. If you find that you are still having vomiting enough that your unable to use the Zofran, I have given you a small prescription of Phenergan suppositories. As unpleasant as it might be, medicine up your bottom to prevent vomiting may help prevent another ER visit. [facility] If you find that you are getting worse or develop any new symptoms, please feel free to return to the emergency department for further evaluation. Prescriptions: New ondansetron 4 mg tablet,disintegrating 4 mg PO Q8H PRN (Reason: nausea and vomiting) Qty: 14 0RF promethazine 25 mg suppository 25 mg DE Q6H PRN (Reason: nausea and vomiting) Qty: 6 0RF No Action potassium chloride 20 mEq/15 mL Liquid 20 meq PO BIDWM Qty: 1200 0RF pantoprazole 20 mg Tablet,Delayed Release (Dr/Ec) 20 mg PO 0600 Qty: 30 0RF levothyroxine [Synthroid] 75 mcg Tablet 75 mcg PO DAILY@0600 Qty: 30 0RF amlodipine 10 mg Tablet 10 mg PO BEDTIME quetiapine 50 mg Tablet 50 mg PO BID quetiapine 300 mg Tablet 300 mg PO BEDTIME metoclopramide HCl [Reglan] 10 mg tablet 10 mg PO Q6H PRN (Reason: nausea and vomiting) Qty: 14 0RF atorvastatin 20 mg tablet 20 mg PO BEDTIME methocarbamol 500 mg Tablet 500 mg PO BID trazodone 100 mg Tablet 100 mg PO BEDTIME betamethasone dipropionate 0.05 % cream 0.05 applic topical BID Label Comments: Apply topically 2 (two) times a day oxycodone 5 mg Tablet 5 mg PO TID PRN (Reason: pain) duloxetine 40 mg capsule, delayed rel sprinkle 40 mg PO DAILY 30 Days Qty: 30 0RF Referrals: Dagmar Perdue ARNP [Primary Care Provider] -
--- NOTE | 2022-05-08 06:15 | DI.CT.S_ITS ---
PROCEDURE: CT ABDOMEN PELVIS W CON INDICATIONS: vomiting, diarrhea x 2 days, hx hyponatremia TECHNIQUE: After the administration of intravenous contrast, axial sections acquired from the lung bases to the pubic symphysis. Coronal and sagittal reformats were performed. For radiation dose reduction, the following was used: automated exposure control, adjustment of mA and/or kV according to patient size. COMPARISON: [facility], CT, CT ABDOMEN PELVIS W CON, 07/13/2021, 9:03. FINDINGS: Image quality: Excellent. Lung bases: Lung bases are clear. Small hiatal hernia. Heart: No significant findings. ABDOMEN: Liver: Redemonstration of mild hepatic steatosis. Stable appearance of numerous scattered hepatic hypodensities likely representing cysts or hemangiomas. Gallbladder: Status post cholecystectomy. Biliary ducts: No intrahepatic biliary ductal dilatation. Stable appearance of prominent common bile duct likely related to prior cholecystectomy. Pancreas: Unremarkable. Spleen: Unremarkable. Adrenal Glands: Unremarkable. Kidneys and Ureters: Unremarkable. No evidence for obstructive uropathy. Stable right renal hypodensity likely representing a cyst. Stomach and Bowel: Stomach appears unremarkable. Multiple fluid-filled loops of small bowel and colon without abnormal wall thickening or inflammatory stranding. Scattered colonic diverticulosis. Peritoneum: No abnormal intraperitoneal fluid. No free air. Ventral Wall: No hernias. Abdominal Nodes: No retroperitoneal or mesenteric adenopathy by size criteria. Vessels: Scattered atherosclerotic calcifications of the abdominal aorta and iliac vessels without aneurysmal dilatation. The inferior vena cava appears patent. PELVIS: Pelvic Organs: Unremarkable. Bladder: Unremarkable. Pelvic Nodes: No enlarged lymph nodes. Miscellaneous: No hernias are seen. Bones: No acute vertebral body compression fractures. Multilevel spondylitic changes throughout the imaged spine. No suspicious osseous lesions. IMPRESSION: 1. Multiple fluid-filled loops of small bowel and colon without evidence for obstruction or acute inflammatory changes. Findings are nonspecific and may represent sequela of enteritis/colitis either infectious or inflammatory in etiology. Otherwise, no acute abnormalities identified in the abdomen or pelvis. 2. Colonic diverticulosis without acute diverticulitis. 3. Small hiatal hernia, stable. 4. Hepatic steatosis. 5. Status post cholecystectomy with stable appearance of post cholecystectomy physiologic dilatation of the common bile duct. 6. Atherosclerosis. Dictated by: Herrera Husain M.D. on 05/08/2022 at 7:58 Approved by: Herrera Husain M.D. on 05/08/2022 at 8:08
[2022-05-08 06:24] LABS: Add Manual Diff / Slide Review NO; Basophils Absolute Auto 100 /uL (0-100); Basophils Percent Auto 1.3 % (0-2); Eosinophils Absolute Auto 100 /uL (0-450); Eosinophils Percent Auto 0.6 % (2-4); Hematocrit 33.9 % (36-46); Hemoglobin 11.4 g/dL (12.0-16.0); Lymphocytes Absolute Auto 3200 /uL (1100-4500); Lymphocytes Percent Auto 29.1 % (25-40); Mean Corpuscular HGB Conc 33.6 % (30-36); Mean Corpuscular Hemoglobin 29.1 PG (26-34); Mean Corpuscular Volume 86.6 fL (80-100); Monocytes Absolute Auto 800 /uL (0-900); Monocytes Percent Auto 6.9 % (3-14); Neutrophils Absolute Auto 6900 /uL (1500-7000); Neutrophils Percent Auto 62.1 % (50-75); Platelet Count 466 X10^3/uL (150-400); Red Blood Cell Count 3.91 X10^6/uL (4.0-5.2); Red Cell Distribution Width 12.8 % (11.6-14.8); White Blood Cell Count 11.1 X10^3/uL (4.5-11.0)
[2022-05-08] MEDS: ONDANSETRON 4 MG/2 ML INJ IV (06:39)
[2022-05-08] MEDS: OXYCODONE IR 5 MG TABLET PO (06:39)
[2022-05-08 06:44] LABS: Alanine Aminotransferase 17 IU/L (<35); Albumin 4.7 g/dL (3.5-5.0); Albumin Globulin Ratio 1.2 (1.0-2.8); Alkaline Phosphatase 173 U/L (38-126); Aspartate Aminotransferase 22 IU/L (14-36); BUN Creatinine Ratio 9.8 (6-22); Bilirubin Total 0.6 mg/dL (0.2-1.3); Blood Urea Nitrogen 9 mg/dL (7-17); Calcium 9.8 mg/dL (8.4-10.2); Carbon Dioxide 24 mmol/L (22-32); Chloride 95 mmol/L (98-107); Estimated Glomerular Filt Rate > 60 mL/min (>60); Globulin 3.9 g/dL (1.7-4.1); Glucose 111 mg/dL (80-110); HEMOLYSIS < 15 (0-50); Lipase 46 U/L (23-300); Potassium 3.3 mmol/L (3.4-5.1); Sodium 133 mmol/L (137-145); Total Protein 8.6 g/dL (6.3-8.2)
[2022-05-08 06:59] LABS: Bacteria Urine None Seen; RBC Urine None Seen (0-5/HPF); Squamous Epithelial Cell Urine 1-5 /HPF (0-5/HPF); WBC Urine 1-5/HPF (0-5/HPF)
[2022-05-08 07:00] LABS: Culture Indicated Urine Cult Not Indicated
[2022-05-08 10:13] VITALS: BP 125/79; PULSE 79; RESP 17; O2SAT 97
== END 2022-05-08 10:51 | disposition home or self-care (01) ==
PROVIDERS: Emergency Medicine; Emergency Provider Emergency Medicine; PCP Nurse Practitioner Family
DX: K52.9 Noninfective gastroenteritis and colitis, unspecified (principal); R10.9 Unspecified abdominal pain
CPT/HCPCS: 36415; 74177; 80053; 81003; 81015; 83690; 85025; 99284; J2405; Q9967

== ENCOUNTER 2022-05-10 06:01 | Inpatient (IN) | payer MEDICARE, SELFPAY ==
[2022-04-24 12:54] VITALS: BMI 23.8
[2022-05-10] VITALS (14 sets, daily range): BP systolic 144–191; BP diastolic 67–105; PULSE 68–131; RESP 17–24; TEMP 36.2–37; O2SAT 80–100
--- NOTE | 2022-05-10 06:32 | ED_ITS ---
HPI - General Adult <Miguel Beal DO - Last Filed: 05/10/22 18:10> General Chief complaint: Abdominal Pain Stated complaint: VOMITING X 8 DAYS Time Seen by Provider: 05/10/22 06:06 Source: patient Mode of arrival: Ambulatory Limitations: no limitations History of Present Illness HPI narrative: Patient is a 71-year-old female. Has history of bipolar disorder. Has had multiple visits here in the emergency department past for multiple days of nausea and vomiting. Was seen here just a couple days ago for the same symptoms. She had an extensive workup to include a CT scan which was relatively unremarkable. Was discharged home. She states she continues to have symptoms. States she has not had anything but a piece of toast in the past 7 days. Is also having urinary frequency. Patient is cooperative however seems to be very excited. Has outbursts that seemed to be random where she just yells out. Is somewhat difficult to get a history from her as she keeps saying ?I have a disease in my record ?she denies chest pain and shortness of. Related Data Home Medications Medication Instructions Recorded Confirmed amlodipine 10 mg tablet 10 mg PO BEDTIME 03/06/20 05/10/22 levothyroxine 75 mcg tablet 50 mcg PO DAILY 03/06/20 05/10/22 quetiapine 50 mg tablet 50 mg PO BID 03/06/20 05/10/22 quetiapine 300 mg tablet 300 mg PO BEDTIME 07/13/21 05/10/22 atorvastatin 20 mg tablet 20 mg PO BEDTIME 04/22/22 05/10/22 betamethasone dipropionate 0.05 % 0.05 applic topical BID eczema 04/22/22 05/10/22 topical cream methocarbamol 500 mg tablet 500 mg PO BID 04/22/22 05/10/22 oxycodone 5 mg tablet 5 mg PO TID PRN pain 04/22/22 05/10/22 trazodone 100 mg tablet 100 mg PO BEDTIME 04/22/22 05/10/22 Previous Rx's Medication Instructions Recorded metoclopramide HCl 10 mg tablet 10 mg PO Q6H PRN nausea and 08/27/21 (Reglan) vomiting #14 tabs duloxetine 40 mg capsule,delayed 40 mg PO DAILY 30 days #30 caps 04/22/22 release sprinkle ondansetron 4 mg disintegrating 4 mg PO Q8H PRN nausea and 05/08/22 tablet vomiting #14 tabs promethazine 25 mg rectal 25 mg CA Q6H PRN nausea and 05/08/22 suppository vomiting #6 ea Allergies Allergy/AdvReac Type Severity Reaction Status Date / Time Sulfa (Sulfonamide Allergy Unknown Verified 04/24/22 11:00 Antibiotics) desipramine Allergy Rash Verified 04/24/22 11:00 Review of Systems <Miguel Beal DO - Last Filed: 05/10/22 18:10> Constitutional Constitutional: Denies fever(s) Cardiovascular Cardiovascular: Reports system reviewed and no additional complaints, except as documented Respiratory Respiratory: Reports system reviewed and no additional complaints, except as documented Gastrointestinal Gastrointestinal: Reports system reviewed and no additional complaints, except as documented Genitourinary Genitourinary: Reports system reviewed and no additional complaints, except as documented Psychiatric Psychiatric: Reports system reviewed and no additional complaints, except as documented Patient History <DO Colton Rene Last Filed: 05/10/22 18:10> Medical History Bipolar disorder Eczema Hypertension Hypothyroidism (acquired) Surgical History Hx of cholecystectomy Family History Mother Alcohol abuse Father CVA (cerebral vascular accident) Social History household members: spouse Smoking Status: Never smoker alcohol intake: former Smoking Status: Never smoker alcohol intake frequency: 0-2 drinks per day Substance Use Type: does not use Exam <Miguel Beal DO - Last Filed: 05/10/22 18:10> Initial Vital Signs Initial Vital Signs: Vital Signs Temperature 98.1 F 05/10/22 06:23 Pulse Rate 102 H 05/10/22 06:23 Respiratory Rate 24 05/10/22 06:23 Blood Pressure 191/88 H 05/10/22 06:23 Pulse Oximetry 98 05/10/22 06:23 Oxygen Delivery Method 05/10/22 06:23 HENMT Head: normal to inspection and normocephalic Resp Effort & Inspection: normal respiratory effort Auscultation: clear to auscultation bilaterally Cardio Rate: tachycardic Rhythm: regular rhythm GI Inspection: non-distended Palpation: soft and No tender Skin General: no rashes or lesions noted Extrem General: capillary refill normal Psych Appearance: disheveled Speech and Movement: pressured speech and restless Affect: animated and elated Attitude: cooperative <Rohit Melendez DO - Last Filed: 05/10/22 19:19> Initial Vital Signs Initial Vital Signs: Vital Signs Temperature 98.1 F 05/10/22 06:23 Pulse Rate 102 H 05/10/22 06:23 Respiratory Rate 24 05/10/22 06:23 Blood Pressure 191/88 H 05/10/22 06:23 Pulse Oximetry 98 05/10/22 06:23 Oxygen Delivery Method 05/10/22 06:23 Course <Miguel Beal DO - Last Filed: 05/10/22 18:10> Orders Ordered: Acetaminophen (Acetaminophen 325 Mg Tablet) 650 mg PO Q6H PRN PRN Reason: Fever/Mild Pain (1-3) Amlodipine Besylate (Amlodipine 5 Mg Tablet) 10 mg PO DAILY [facility] Atorvastatin Calcium (Atorvastatin 20 Mg Tablet) 20 mg PO BEDTIME [facility] Enoxaparin Sodium (Enoxaparin 40 Mg/0.4 Ml Syringe) 40 mg SUBCUT DAILY [facility] Ketorolac Tromethamine (Ketorolac 30 Mg/Ml Vial) 15 mg IV Q8H PRN PRN Reason: Pain, Moderate (4-6) Stop: 05/15/22 12:10 Levothyroxine Sodium (Levothyroxine 75 Mcg Tablet) 50 mcg PO DAILY [facility] Lorazepam (Lorazepam 2 Mg/Ml Inj) 0.5 mg IV Q4HR PRN PRN Reason: Anxiety / nausea Naloxone HCl (Naloxone 0.4 Mg/Ml Vial) 0.2 mg IV Q2MIN PRN PRN Reason: Opiate Reversal Ondansetron HCl (Ondansetron 4 Mg/2 Ml Inj) 4 mg IV Q8HR PRN PRN Reason: Nausea And Vomiting Pantoprazole Sodium (Pantoprazole Dr 20 Mg Tablet) 20 mg PO 0600 [facility] Quetiapine Fumarate (Quetiapine 25 Mg Tablet) 50 mg PO BID [facility] Quetiapine Fumarate (Quetiapine 100 Mg Tablet) 300 mg PO BEDTIME [facility] Trazodone HCl (Trazodone 100 Mg Tablet) 100 mg PO BEDTIME [facility] Discontinued Medications Haloperidol (Haloperidol 5 Mg/Ml Vial) 5 mg IV NOW ONE Stop: 05/10/22 06:34 Last Admin: 05/10/22 08:07 Dose: Not Given Documented By: VLADIMIR Haloperidol (Haloperidol 5 Mg/Ml Vial) 2.5 mg IV NOW ONE Stop: 05/10/22 06:41 Last Admin: 05/10/22 07:00 Dose: 2.5 mg Documented By: SUKHDEEP Sodium Chloride (Normal Saline 0.9%) 1,000 mls @ 500 mls/hr IV BOLUS ONE Stop: 05/10/22 08:32 Last Infusion: 05/10/22 10:45 Dose: 0 mls/hr Documented By: Admin: 05/10/22 06:59 Dose: 500 mls/hr Documented By: SUKHDEEP POTASSIUM CHLORIDE IN WATER (Potassium Cl 10 Meq/100 Ml Karissa) 10 meq in 100 mls @ 100 mls/hr IV Q1H ANDRESSA Stop: 05/10/22 13:29 Last Admin: 05/10/22 15:24 Dose: 100 mls/hr Documented By: Infusion: 05/10/22 15:24 Dose: 100 mls/hr Documented By: Admin: 05/10/22 15:00 Dose: 100 mls/hr Documented By: Infusion: 05/10/22 14:54 Dose: 100 mls/hr Documented By: Admin: 05/10/22 13:54 Dose: 100 mls/hr Documented By: Infusion: 05/10/22 11:21 Dose: 100 mls/hr Documented By: Admin: 05/10/22 10:21 Dose: 100 mls/hr Documented By: Infusion: 05/10/22 10:18 Dose: 100 mls/hr Documented By: Admin: 05/10/22 09:18 Dose: 100 mls/hr Documented By: Infusion: 05/10/22 09:04 Dose: 100 mls/hr Documented By: Admin: 05/10/22 08:04 Dose: 100 mls/hr Documented By: LARRY Magnesium Sulfate (Magnesium Sulfate) 2 gm in 50 mls @ 25 mls/hr IV NOW ONE Stop: 05/10/22 09:42 Last Admin: 05/10/22 08:02 Dose: 25 mls/hr Documented By: LARRY Co-signed By: VLADIMIR Lorazepam (Lorazepam 2 Mg/Ml Inj) 1 mg IV NOW ONE Stop: 05/10/22 08:18 Last Admin: 05/10/22 08:21 Dose: 1 mg Documented By: LATIA Ondansetron HCl (Ondansetron 4 Mg Odt) 4 mg PO NOW PRN PRN Reason: Nausea And Vomiting Ondansetron HCl (Ondansetron 4 Mg/2 Ml Inj) 4 mg IV NOW PRN PRN Reason: Nausea And Vomiting Last Admin: 05/10/22 08:06 Dose: 4 mg Documented By: LARRY Pantoprazole Sodium (Pantoprazole 40 Mg Vial) 40 mg IV NOW ONE Stop: 05/10/22 07:20 Last Admin: 05/10/22 08:04 Dose: 40 mg Documented By: LARRY Vital Signs Vital signs: Vital Signs - 8 hr 05/10/22 06:23 Temperature 98.1 F Pulse Rate 102 H Respiratory Rate 24 Blood Pressure 191/88 H Pulse Oximetry 98 Oxygen Delivery Method Room Air <Rohit Melendez DO - Last Filed: 05/10/22 19:19> Orders Ordered: Acetaminophen (Acetaminophen 325 Mg Tablet) 650 mg PO Q6H PRN PRN Reason: Fever/Mild Pain (1-3) Amlodipine Besylate (Amlodipine 5 Mg Tablet) 10 mg PO DAILY [facility] Atorvastatin Calcium (Atorvastatin 20 Mg Tablet) 20 mg PO BEDTIME [facility] Enoxaparin Sodium (Enoxaparin 40 Mg/0.4 Ml Syringe) 40 mg SUBCUT DAILY [facility] Ketorolac Tromethamine (Ketorolac 30 Mg/Ml Vial) 15 mg IV Q8H PRN PRN Reason: Pain, Moderate (4-6) Stop: 05/15/22 12:10 Levothyroxine Sodium (Levothyroxine 75 Mcg Tablet) 50 mcg PO DAILY [facility] Lorazepam (Lorazepam 2 Mg/Ml Inj) 0.5 mg IV Q4HR PRN PRN Reason: Anxiety / nausea Naloxone HCl (Naloxone 0.4 Mg/Ml Vial) 0.2 mg IV Q2MIN PRN PRN Reason: Opiate Reversal Ondansetron HCl (Ondansetron 4 Mg/2 Ml Inj) 4 mg IV Q8HR PRN PRN Reason: Nausea And Vomiting Pantoprazole Sodium (Pantoprazole Dr 20 Mg Tablet) 20 mg PO 0600 [facility] Quetiapine Fumarate (Quetiapine 25 Mg Tablet) 50 mg PO BID [facility] Quetiapine Fumarate (Quetiapine 100 Mg Tablet) 300 mg PO BEDTIME [facility] Trazodone HCl (Trazodone 100 Mg Tablet) 100 mg PO BEDTIME [facility] Discontinued Medications Haloperidol (Haloperidol 5 Mg/Ml Vial) 5 mg IV NOW ONE Stop: 05/10/22 06:34 Last Admin: 05/10/22 08:07 Dose: Not Given Documented By: NR Haloperidol (Haloperidol 5 Mg/Ml Vial) 2.5 mg IV NOW ONE Stop: 05/10/22 06:41 Last Admin: 05/10/22 07:00 Dose: 2.5 mg Documented By: AP Sodium Chloride (Normal Saline 0.9%) 1,000 mls @ 500 mls/hr IV BOLUS ONE Stop: 05/10/22 08:32 Last Infusion: 05/10/22 10:45 Dose: 0 mls/hr Documented By: Admin: 05/10/22 06:59 Dose: 500 mls/hr Documented By: SUKHDEEP POTASSIUM CHLORIDE IN WATER (Potassium Cl 10 Meq/100 Ml Karissa) 10 meq in 100 mls @ 100 mls/hr IV Q1H ANDRESSA Stop: 05/10/22 13:29 Last Admin: 05/10/22 15:24 Dose: 100 mls/hr Documented By: Infusion: 05/10/22 15:24 Dose: 100 mls/hr Documented By: Admin: 05/10/22 15:00 Dose: 100 mls/hr Documented By: Infusion: 05/10/22 14:54 Dose: 100 mls/hr Documented By: Admin: 05/10/22 13:54 Dose: 100 mls/hr Documented By: Infusion: 05/10/22 11:21 Dose: 100 mls/hr Documented By: Admin: 05/10/22 10:21 Dose: 100 mls/hr Documented By: Infusion: 05/10/22 10:18 Dose: 100 mls/hr Documented By: Admin: 05/10/22 09:18 Dose: 100 mls/hr Documented By: Infusion: 05/10/22 09:04 Dose: 100 mls/hr Documented By: Admin: 05/10/22 08:04 Dose: 100 mls/hr Documented By: LARRY Magnesium Sulfate (Magnesium Sulfate) 2 gm in 50 mls @ 25 mls/hr IV NOW ONE Stop: 05/10/22 09:42 Last Admin: 05/10/22 08:02 Dose: 25 mls/hr Documented By: LARRY Co-signed By: VLADIMIR Lorazepam (Lorazepam 2 Mg/Ml Inj) 1 mg IV NOW ONE Stop: 05/10/22 08:18 Last Admin: 05/10/22 08:21 Dose: 1 mg Documented By: LATIA Ondansetron HCl (Ondansetron 4 Mg Odt) 4 mg PO NOW PRN PRN Reason: Nausea And Vomiting Ondansetron HCl (Ondansetron 4 Mg/2 Ml Inj) 4 mg IV NOW PRN PRN Reason: Nausea And Vomiting Last Admin: 05/10/22 08:06 Dose: 4 mg Documented By: LARRY Pantoprazole Sodium (Pantoprazole 40 Mg Vial) 40 mg IV NOW ONE Stop: 05/10/22 07:20 Last Admin: 05/10/22 08:04 Dose: 40 mg Documented By: LARRY Reevaluation(s) Reevaluation #1: Patient back from x-ray, ramping up a bit, feeling nauseated but not actively vomiting. Time: 08:18 Vital Signs Vital signs: Vital Signs - 8 hr 05/10/22 06:23 Temperature 98.1 F Pulse Rate 102 H Respiratory Rate 24 Blood Pressure 191/88 H Pulse Oximetry 98 Oxygen Delivery Method Room Air Medical Decision Making <Miguel Beal DO - Last Filed: 05/10/22 18:10> Medical Records Medical records reviewed: Yes I reviewed the patient's medical records. Lab Data Result diagrams: 05/10/22 06:30 05/10/22 11:33 Labs: Lab Results 05/10/22 05/10/22 05/10/22 Range/Units 06:30 06:30 07:17 WBC 12.1 H (4.5-11.0) X10^3/uL RBC 3.61 L (4.0-5.2) X10^6/uL Hgb 10.8 L (12.0-16.0) g/dL Hct 30.4 L (36-46) % MCV 84.4 (80-100) fL MCH 30.0 (26-34) PG MCHC 35.6 (30-36) % RDW 12.7 (11.6-14.8) % Plt Count 404 H (150-400) X10^3/uL Neut % (Auto) 58.4 (50-75) % Lymph % (Auto) 31.7 (25-40) % [place] % (Auto) 8.0 (3-14) % Eos % (Auto) 0.5 L (2-4) % Baso % (Auto) 1.4 (0-2) % Neut # (Auto) 7100 H (2475-0002) /uL Lymph # (Auto) 3800 (1390-7269) /uL [place] # (Auto) 1000 H (0-900) /uL Eos # (Auto) 100 (0-450) /uL Baso # (Auto) 200 H (0-100) /uL Sodium 118 L* D (137-145) mmol/L Potassium 2.5 L* (3.4-5.1) mmol/L Chloride 83 L (98-107) mmol/L Carbon Dioxide 16 L (22-32) mmol/L BUN 8 (7-17) mg/dL Creatinine 0.83 (0.52-1.04) mg/dL Estimated GFR > 60 (>60) mL/min BUN/Creatinine Ratio 9.6 (6-22) Glucose 102 (80-110) mg/dL Calcium 9.1 (8.4-10.2) mg/dL Magnesium 1.1 L (1.6-2.3) mg/dL Total Bilirubin 1.0 (0.2-1.3) mg/dL AST 32 (14-36) IU/L ALT 20 (<35) IU/L Alkaline Phosphatase 160 H (38-126) U/L Total Protein 8.1 (6.3-8.2) g/dL Albumin 4.7 (3.5-5.0) g/dL Globulin 3.4 (1.7-4.1) g/dL Albumin/Globulin Ratio 1.4 (1.0-2.8) Lipase 36 (23-300) U/L Urine Color Urine Appearance Urine pH (4.5-8.0) Ur Specific [place] (1.000-1.035) Urine Protein (Negative) Urine Glucose (UA) (Negative) g/dL Urine Ketones (NEGATIVE) Urine Occult Blood (Negative) Urine Nitrate (Negative) Urine Bilirubin (NEGATIVE) Urine Urobilinogen (0.2) E.U./dL Ur Leukocyte Esterase (NEGATIVE) Urine RBC (0-5/HPF) Urine WBC (0-5/HPF) Ur Squamous Epith Cells (0-5/HPF) Urine Bacteria (None) Ur Culture Indicated? Ur Random Sodium (30-90) mmol/L Urine Creatinine mg/dL SARS-CoV-2 (PCR) (Negative) 05/10/22 05/10/22 05/10/22 Range/Units 08:10 08:31 08:31 WBC (4.5-11.0) X10^3/uL RBC (4.0-5.2) X10^6/uL Hgb (12.0-16.0) g/dL Hct (36-46) % MCV (80-100) fL MCH (26-34) PG MCHC (30-36) % RDW (11.6-14.8) % Plt Count (150-400) X10^3/uL Neut % (Auto) (50-75) % Lymph % (Auto) (25-40) % [place] % (Auto) (3-14) % Eos % (Auto) (2-4) % Baso % (Auto) (0-2) % Neut # (Auto) (1474-8111) /uL Lymph # (Auto) (2491-3448) /uL [place] # (Auto) (0-900) /uL Eos # (Auto) (0-450) /uL Baso # (Auto) (0-100) /uL Sodium (137-145) mmol/L Potassium (3.4-5.1) mmol/L Chloride (98-107) mmol/L Carbon Dioxide (22-32) mmol/L BUN (7-17) mg/dL Creatinine (0.52-1.04) mg/dL Estimated GFR (>60) mL/min BUN/Creatinine Ratio (6-22) Glucose (80-110) mg/dL Calcium (8.4-10.2) mg/dL Magnesium (1.6-2.3) mg/dL Total Bilirubin (0.2-1.3) mg/dL AST (14-36) IU/L ALT (<35) IU/L Alkaline Phosphatase (38-126) U/L Total Protein (6.3-8.2) g/dL Albumin (3.5-5.0) g/dL Globulin (1.7-4.1) g/dL Albumin/Globulin Ratio (1.0-2.8) Lipase (23-300) U/L Urine Color Urine Appearance Urine pH (4.5-8.0) Ur Specific [place] (1.000-1.035) Urine Protein (Negative) Urine Glucose (UA) (Negative) g/dL Urine Ketones (NEGATIVE) Urine Occult Blood (Negative) Urine Nitrate (Negative) Urine Bilirubin (NEGATIVE) Urine Urobilinogen (0.2) E.U./dL Ur Leukocyte Esterase (NEGATIVE) Urine RBC (0-5/HPF) Urine WBC (0-5/HPF) Ur Squamous Epith Cells (0-5/HPF) Urine Bacteria (None) Ur Culture Indicated? Ur Random Sodium 7 L (30-90) mmol/L Urine Creatinine 9.8 mg/dL SARS-CoV-2 (PCR) Negative (Negative) 05/10/22 Range/Units 09:08 WBC (4.5-11.0) X10^3/uL RBC (4.0-5.2) X10^6/uL Hgb (12.0-16.0) g/dL Hct (36-46) % MCV (80-100) fL MCH (26-34) PG MCHC (30-36) % RDW (11.6-14.8) % Plt Count (150-400) X10^3/uL Neut % (Auto) (50-75) % Lymph % (Auto) (25-40) % [place] % (Auto) (3-14) % Eos % (Auto) (2-4) % Baso % (Auto) (0-2) % Neut # (Auto) (7798-3567) /uL Lymph # (Auto) (3388-5876) /uL [place] # (Auto) (0-900) /uL Eos # (Auto) (0-450) /uL Baso # (Auto) (0-100) /uL Sodium (137-145) mmol/L Potassium (3.4-5.1) mmol/L Chloride (98-107) mmol/L Carbon Dioxide (22-32) mmol/L BUN (7-17) mg/dL Creatinine (0.52-1.04) mg/dL Estimated GFR (>60) mL/min BUN/Creatinine Ratio (6-22) Glucose (80-110) mg/dL Calcium (8.4-10.2) mg/dL Magnesium (1.6-2.3) mg/dL Total Bilirubin (0.2-1.3) mg/dL AST (14-36) IU/L ALT (<35) IU/L Alkaline Phosphatase (38-126) U/L Total Protein (6.3-8.2) g/dL Albumin (3.5-5.0) g/dL Globulin (1.7-4.1) g/dL Albumin/Globulin Ratio (1.0-2.8) Lipase (23-300) U/L Urine Color Straw Urine Appearance Clear Urine pH 6.5 (4.5-8.0) Ur Specific [place] <=1.005 (1.000-1.035) Urine Protein Negative (Negative) Urine Glucose (UA) Negative (Negative) g/dL Urine Ketones Negative (NEGATIVE) Urine Occult Blood Negative (Negative) Urine Nitrate Negative (Negative) Urine Bilirubin Negative (NEGATIVE) Urine Urobilinogen 0.2 (0.2) E.U./dL Ur Leukocyte Esterase Negative (NEGATIVE) Urine RBC 0-1/hpf (0-5/HPF) Urine WBC 0-1/hpf (0-5/HPF) Ur Squamous Epith Cells 1-5 /hpf (0-5/HPF) Urine Bacteria Occasional (0-1) (None) Ur Culture Indicated? Cult not indicated Ur Random Sodium (30-90) mmol/L Urine Creatinine mg/dL SARS-CoV-2 (PCR) (Negative) Point of Care Testing Test Results Not applicable Urine Dip Bedside Urine Glucose Negative Bedside Urine Bilirubin - Negative Bedside Urine Ketone - Negative Urine Specific [place] 1.005 Bedside Urine Occult Blood +/- Bedside Urine pH 6.0 Bedside Urine Protein - Negative Bedside Urine Urobilinogen - Negative Point of care testing: Point of Care Testing Test Results Not applicable Urine Dip Bedside Urine Glucose Negative Bedside Urine Bilirubin - Negative Bedside Urine Ketone - Negative Urine Specific [place] 1.005 Bedside Urine Occult Blood +/- Bedside Urine pH 6.0 Bedside Urine Protein - Negative Bedside Urine Urobilinogen - Negative [facility] Narrative Medical decision making narrative: Patient has had multiple presentations like this in the past. She recently had a very extensive workup for her vomiting that was unremarkable. She does have a history of hyponatremia. Labs ordered. Review prior note shows that Haldol seems to have worked in the past and so that was ordered for her this morning. Care turned over to Dr. Melendez to follow-up and disposition. <Rohit Melendez, - Last Filed: 05/10/22 19:19> Lab Data Labs: Lab Results 05/10/22 05/10/22 05/10/22 Range/Units 06:30 06:30 07:17 WBC 12.1 H (4.5-11.0) X10^3/uL RBC 3.61 L (4.0-5.2) X10^6/uL Hgb 10.8 L (12.0-16.0) g/dL Hct 30.4 L (36-46) % MCV 84.4 (80-100) fL MCH 30.0 (26-34) PG MCHC 35.6 (30-36) % RDW 12.7 (11.6-14.8) % Plt Count 404 H (150-400) X10^3/uL Neut % (Auto) 58.4 (50-75) % Lymph % (Auto) 31.7 (25-40) % [place] % (Auto) 8.0 (3-14) % Eos % (Auto) 0.5 L (2-4) % Baso % (Auto) 1.4 (0-2) % Neut # (Auto) 7100 H (6409-5530) /uL Lymph # (Auto) 3800 (3639-4324) /uL [place] # (Auto) 1000 H (0-900) /uL Eos # (Auto) 100 (0-450) /uL Baso # (Auto) 200 H (0-100) /uL Sodium 118 L* D (137-145) mmol/L Potassium 2.5 L* (3.4-5.1) mmol/L Chloride 83 L (98-107) mmol/L Carbon Dioxide 16 L (22-32) mmol/L BUN 8 (7-17) mg/dL Creatinine 0.83 (0.52-1.04) mg/dL Estimated GFR > 60 (>60) mL/min BUN/Creatinine Ratio 9.6 (6-22) Glucose 102 (80-110) mg/dL Calcium 9.1 (8.4-10.2) mg/dL Magnesium 1.1 L (1.6-2.3) mg/dL Total Bilirubin 1.0 (0.2-1.3) mg/dL AST 32 (14-36) IU/L ALT 20 (<35) IU/L Alkaline Phosphatase 160 H (38-126) U/L Total Protein 8.1 (6.3-8.2) g/dL Albumin 4.7 (3.5-5.0) g/dL Globulin 3.4 (1.7-4.1) g/dL Albumin/Globulin Ratio 1.4 (1.0-2.8) Lipase 36 (23-300) U/L Urine Color Urine Appearance Urine pH (4.5-8.0) Ur Specific [place] (1.000-1.035) Urine Protein (Negative) Urine Glucose (UA) (Negative) g/dL Urine Ketones (NEGATIVE) Urine Occult Blood (Negative) Urine Nitrate (Negative) Urine Bilirubin (NEGATIVE) Urine Urobilinogen (0.2) E.U./dL Ur Leukocyte Esterase (NEGATIVE) Urine RBC (0-5/HPF) Urine WBC (0-5/HPF) Ur Squamous Epith Cells (0-5/HPF) Urine Bacteria (None) Ur Culture Indicated? Ur Random Sodium (30-90) mmol/L Urine Creatinine mg/dL SARS-CoV-2 (PCR) (Negative) 05/10/22 05/10/22 05/10/22 Range/Units 08:10 08:31 08:31 WBC (4.5-11.0) X10^3/uL RBC (4.0-5.2) X10^6/uL Hgb (12.0-16.0) g/dL Hct (36-46) % MCV (80-100) fL MCH (26-34) PG MCHC (30-36) % RDW (11.6-14.8) % Plt Count (150-400) X10^3/uL Neut % (Auto) (50-75) % Lymph % (Auto) (25-40) % [place] % (Auto) (3-14) % Eos % (Auto) (2-4) % Baso % (Auto) (0-2) % Neut # (Auto) (6837-5099) /uL Lymph # (Auto) (7494-7371) /uL [place] # (Auto) (0-900) /uL Eos # (Auto) (0-450) /uL Baso # (Auto) (0-100) /uL Sodium (137-145) mmol/L Potassium (3.4-5.1) mmol/L Chloride (98-107) mmol/L Carbon Dioxide (22-32) mmol/L BUN (7-17) mg/dL Creatinine (0.52-1.04) mg/dL Estimated GFR (>60) mL/min BUN/Creatinine Ratio (6-22) Glucose (80-110) mg/dL Calcium (8.4-10.2) mg/dL Magnesium (1.6-2.3) mg/dL Total Bilirubin (0.2-1.3) mg/dL AST (14-36) IU/L ALT (<35) IU/L Alkaline Phosphatase (38-126) U/L Total Protein (6.3-8.2) g/dL Albumin (3.5-5.0) g/dL Globulin (1.7-4.1) g/dL Albumin/Globulin Ratio (1.0-2.8) Lipase (23-300) U/L Urine Color Urine Appearance Urine pH (4.5-8.0) Ur Specific [place] (1.000-1.035) Urine Protein (Negative) Urine Glucose (UA) (Negative) g/dL Urine Ketones (NEGATIVE) Urine Occult Blood (Negative) Urine Nitrate (Negative) Urine Bilirubin (NEGATIVE) Urine Urobilinogen (0.2) E.U./dL Ur Leukocyte Esterase (NEGATIVE) Urine RBC (0-5/HPF) Urine WBC (0-5/HPF) Ur Squamous Epith Cells (0-5/HPF) Urine Bacteria (None) Ur Culture Indicated? Ur Random Sodium 7 L (30-90) mmol/L Urine Creatinine 9.8 mg/dL SARS-CoV-2 (PCR) Negative (Negative) 05/10/22 Range/Units 09:08 WBC (4.5-11.0) X10^3/uL RBC (4.0-5.2) X10^6/uL Hgb (12.0-16.0) g/dL Hct (36-46) % MCV (80-100) fL MCH (26-34) PG MCHC (30-36) % RDW (11.6-14.8) % Plt Count (150-400) X10^3/uL Neut % (Auto) (50-75) % Lymph % (Auto) (25-40) % [place] % (Auto) (3-14) % Eos % (Auto) (2-4) % Baso % (Auto) (0-2) % Neut # (Auto) (2351-4865) /uL Lymph # (Auto) (3758-7287) /uL [place] # (Auto) (0-900) /uL Eos # (Auto) (0-450) /uL Baso # (Auto) (0-100) /uL Sodium (137-145) mmol/L Potassium (3.4-5.1) mmol/L Chloride (98-107) mmol/L Carbon Dioxide (22-32) mmol/L BUN (7-17) mg/dL Creatinine (0.52-1.04) mg/dL Estimated GFR (>60) mL/min BUN/Creatinine Ratio (6-22) Glucose (80-110) mg/dL Calcium (8.4-10.2) mg/dL Magnesium (1.6-2.3) mg/dL Total Bilirubin (0.2-1.3) mg/dL AST (14-36) IU/L ALT (<35) IU/L Alkaline Phosphatase (38-126) U/L Total Protein (6.3-8.2) g/dL Albumin (3.5-5.0) g/dL Globulin (1.7-4.1) g/dL Albumin/Globulin Ratio (1.0-2.8) Lipase (23-300) U/L Urine Color Straw Urine Appearance Clear Urine pH 6.5 (4.5-8.0) Ur Specific [place] <=1.005 (1.000-1.035) Urine Protein Negative (Negative) Urine Glucose (UA) Negative (Negative) g/dL Urine Ketones Negative (NEGATIVE) Urine Occult Blood Negative (Negative) Urine Nitrate Negative (Negative) Urine Bilirubin Negative (NEGATIVE) Urine Urobilinogen 0.2 (0.2) E.U./dL Ur Leukocyte Esterase Negative (NEGATIVE) Urine RBC 0-1/hpf (0-5/HPF) Urine WBC 0-1/hpf (0-5/HPF) Ur Squamous Epith Cells 1-5 /hpf (0-5/HPF) Urine Bacteria Occasional (0-1) (None) Ur Culture Indicated? Cult not indicated Ur Random Sodium (30-90) mmol/L Urine Creatinine mg/dL SARS-CoV-2 (PCR) (Negative) Point of Care Testing Test Results Not applicable Urine Dip Bedside Urine Glucose Negative Bedside Urine Bilirubin - Negative Bedside Urine Ketone - Negative Urine Specific [place] 1.005 Bedside Urine Occult Blood +/- Bedside Urine pH 6.0 Bedside Urine Protein - Negative Bedside Urine Urobilinogen - Negative Point of care testing: Point of Care Testing Test Results Not applicable Urine Dip Bedside Urine Glucose Negative Bedside Urine Bilirubin - Negative Bedside Urine Ketone - Negative Urine Specific [place] 1.005 Bedside Urine Occult Blood +/- Bedside Urine pH 6.0 Bedside Urine Protein - Negative Bedside Urine Urobilinogen - Negative Imaging Data Abdominal x-ray: Radiologist's Impression: [address] [id number] XRay Report Signed Patient: Camilla Kim PROCEDURE:? XR ACUTE ABDOMEN SERIES ? INDICATIONS:? N/V ? TECHNIQUE:? One view chest and two views of the abdomen were acquired.? ? COMPARISON:? [facility], CR, XR ACUTE ABDOMEN SERIES, 08/27/2021, 7:33. ? FINDINGS:? ? Surgical changes and devices:? Surgical clips are seen in gallbladder fossa. ? Chest:? Lungs are clear.? Heart size is normal.? No pleural effusions.? No pneumoperitoneum.? ? Abdomen:? Bowel gas pattern is nonobstructive.? No gross pneumoperitoneum.? No suspicious calcifications.? Visualized solid organ contours appear normal.? ? Bones:? No suspicious bony lesions.? ? IMPRESSION:? No evidence of bowel obstruction or gross free air.? No acute cardiopulmonary pathology. ? ? Dictated by: Sebastian Keyes M.D. on 05/10/2022 at 8:26 ? ? Approved by: Sebastian Keyes M.D. on 05/10/2022 at 8:27 ? MDM Narrative Medical decision making narrative: Patient has had multiple presentations like this in the past. She recently had a very extensive workup for her vomiting that was unremarkable. She does have a history of hyponatremia. Labs ordered. Review prior note shows that Haldol seems to have worked in the past and so that was ordered for her this morning. Care turned over to Dr. Melendez to follow-up and disposition. [0700] (Al) Patient received in sign out from [Emigdio]. I have reviewed the clinical course and performed an independent history and physical exam. [71-year-old female nonsmoker with history of bipolar, vomiting, prior episodes of hyponatremia, hypokalemia and gastroenteritis. Multiple etiologies for patient's symptoms considered including, but not limited to: [Bowel obstruction, cyclic vomiting, electrolyte abnormality, flu, COVID] Prior Charts reviewed: Including visit for similar symptoms 2 days ago in the emergency department with review of labs and abdominal CT Labs reviewed and interpreted by myself: Noted hypokalemia, hypomag, hyponatremia Imaging reviewed: Prior abdominal CT reviewed without significant findings. Acute abdominal series today demonstrates no obstructive process, firm stool throughout Patient's symptoms improved some over duration of stay with above-stated therapies. Patient requires hospitalization for ongoing treatment, stabilization of her persistent vomiting, dehydration and electrolyte abnormalities Findings and admission diagnosis discussed with patient/family followed by verbalization of understanding Discharge Plan Departure Patient Disposition: Admitted As Inpatient Clinical Impression: Hyponatremia, Hypokalemia, Acute vomiting, Hypomagnesemia Admit Date/Time: 05/10/22 09:20 Admit Provider: Edgar Thorpe
[2022-05-10 06:44] LABS: Add Manual Diff / Slide Review NO; Basophils Absolute Auto 200 /uL (0-100); Basophils Percent Auto 1.4 % (0-2); Eosinophils Absolute Auto 100 /uL (0-450); Eosinophils Percent Auto 0.5 % (2-4); Hematocrit 30.4 % (36-46); Hemoglobin 10.8 g/dL (12.0-16.0); Lymphocytes Absolute Auto 3800 /uL (1100-4500); Lymphocytes Percent Auto 31.7 % (25-40); Mean Corpuscular HGB Conc 35.6 % (30-36); Mean Corpuscular Volume 84.4 fL (80-100); Monocytes Absolute Auto 1000 /uL (0-900); Neutrophils Absolute Auto 7100 /uL (1500-7000); Neutrophils Percent Auto 58.4 % (50-75); Platelet Count 404 X10^3/uL (150-400); Red Blood Cell Count 3.61 X10^6/uL (4.0-5.2); Red Cell Distribution Width 12.7 % (11.6-14.8); White Blood Cell Count 12.1 X10^3/uL (4.5-11.0)
[2022-05-10 06:52] LABS: Alanine Aminotransferase 20 IU/L (<35); Albumin 4.7 g/dL (3.5-5.0); Albumin Globulin Ratio 1.4 (1.0-2.8); Alkaline Phosphatase 160 U/L (38-126); Aspartate Aminotransferase 32 IU/L (14-36); BUN Creatinine Ratio 9.6 (6-22); Blood Urea Nitrogen 8 mg/dL (7-17); Calcium 9.1 mg/dL (8.4-10.2); Carbon Dioxide 16 mmol/L (22-32); Chloride 83 mmol/L (98-107); Estimated Glomerular Filt Rate > 60 mL/min (>60); Globulin 3.4 g/dL (1.7-4.1); Glucose 102 mg/dL (80-110); HEMOLYSIS 22 (0-50); Lipase 36 U/L (23-300); Total Protein 8.1 g/dL (6.3-8.2)
[2022-05-10] MEDS: SODIUM CHLORIDE 0.9% 1,000 ML 500 ML IV (06:59)
[2022-05-10] MEDS: HALOPERIDOL 5 MG/ML VIAL 2.5 MG IV (07:00)
[2022-05-10 07:07] LABS: Sodium 118 mmol/L (137-145)
[2022-05-10 07:09] LABS: Potassium 2.5 mmol/L (3.4-5.1)
--- NOTE | 2022-05-10 07:17 | DI.RAD.S_ITS ---
PROCEDURE: XR ACUTE ABDOMEN SERIES INDICATIONS: N/V TECHNIQUE: One view chest and two views of the abdomen were acquired. COMPARISON: [facility], , XR ACUTE ABDOMEN SERIES, 08/27/2021, 7:33. FINDINGS: Surgical changes and devices: Surgical clips are seen in gallbladder fossa. Chest: Lungs are clear. Heart size is normal. No pleural effusions. No pneumoperitoneum. Abdomen: Bowel gas pattern is nonobstructive. No gross pneumoperitoneum. No suspicious calcifications. Visualized solid organ contours appear normal. Bones: No suspicious bony lesions. IMPRESSION: No evidence of bowel obstruction or gross free air. No acute cardiopulmonary pathology. Dictated by: Sebastian Keyes M.D. on 05/10/2022 at 8:26 Approved by: Sebastian Keyes M.D. on 05/10/2022 at 8:27
[2022-05-10 07:36] LABS: Magnesium 1.1 mg/dL (1.6-2.3)
[2022-05-10] MEDS: MAGNESIUM SULFATE 2 GM/50 ML PIGGYBACK IV (08:02)
[2022-05-10] MEDS: PANTOPRAZOLE 40 MG VIAL IV (08:04)
[2022-05-10] MEDS: POTASSIUM CHLORIDE IN WATER 10 MEQ/100 ML PIGGYBACK 100 MEQ IV ×6 (08:04→15:24)
[2022-05-10] MEDS: ONDANSETRON 4 MG/2 ML INJ IV ×2 (08:06→20:29)
[2022-05-10] MEDS: LORazepam 2 MG/ML INJ 1 MG IV (08:21)
[2022-05-10 08:50] LABS: Sodium Urine Random 7 mmol/L (30-90)
[2022-05-10 09:15] LABS: Creatinine Urine Random 9.8 mg/dL
[2022-05-10 09:37] LABS: Appearance Urine UA CLEAR; Bilirubin Urine UA NEGATIVE (NEGATIVE); Glucose Urine UA NEGATIVE (Negative); Ketones Urine UA NEGATIVE (NEGATIVE); Leukocyte Esterase Urine UA NEGATIVE (NEGATIVE); Nitrite Urine UA NEGATIVE (Negative); Occult Blood Urine UA NEGATIVE (Negative); Protein Urine UA NEGATIVE (Negative); Specific Gravity Urine UA <=1.005 (1.000-1.035); Urobilinogen Urine UA 0.2 E.U./dL (0.2)
[2022-05-10 10:02] LABS: Color Urine UA STRAW; pH Urine UA 6.5 (4.5-8.0)
[2022-05-10 10:03] LABS: COVID19 -Nasal RAPID Negative (Negative)
[2022-05-10 10:03] LABS: Bacteria Urine Occasional (0-1); Culture Indicated Urine Cult Not Indicated; RBC Urine 0-1/HPF (0-5/HPF); Squamous Epithelial Cell Urine 1-5 /HPF (0-5/HPF); WBC Urine 0-1/HPF (0-5/HPF)
--- NOTE | 2022-05-10 11:50 | PM.HP.1 ---
History of Present Illness History of Present Illness Date Patient Seen: 05/10/22 Time Patient Seen: 11:51 Chief complaint: VOMITING X 8 DAYS Narrative: Camilla Kim is a 71-year-old female history of major depression, bipolar, essential hypertension, hypothyroidism, hx of opiate overdose with multiple recent admissions for hyponatremia. During her last admission a fluid restriction was in place, with improvement in her sodium. UA and urine sodium have been consistent with polydipsia due to excess water intake in the past. Today she returned for what she describes is nausea and vomiting for the past 8 days. She has not been able to tolerate much oral intake, she states she stays hydrated though but is currently unable to tell how much water she is drinking and does not track reliably. She denies fever or chills, she denies chest pain, palpitations, shortness of breath, lower extremity edema. She denies seizure, headaches, or vision changes. In the emergency room, patient's vitals were notable for mild hypertension, but otherwise unremarkable. Labs ntoed WBC 12.1, and an initial sodium of 118. Mg was low at 1.1 and potassium was 2.5 as well. UA shows dilute urine with specific gravity of <1.005 and urine sodium of 7, again consistent with excess water intake. COVID 19 testing was negative. EKG showed slightly prolonged Qtc at 500. Chest and abdomen xray was read as unremarkable, was reviewed by me and there was no evidence of acute pulmonary or abdominal processes. Patient History Medical History Bipolar disorder Eczema Hypertension Hypothyroidism (acquired) Surgical History Hx of cholecystectomy Family & Social History Family History Mother Alcohol abuse Father CVA (cerebral vascular accident) Social History: household members spouse Safety & Behavioral: Feels Safe in Current Yes Environment Been Physically Hurt or No Threatened By a Person Tobacco & Substance use: Smoking Status Never smoker alcohol intake former alcohol intake frequency 0-2 drinks per day Substance Use Type does not use Meds Home Medications and Allergies Home Medications Medication Instructions Recorded Confirmed Type amlodipine 10 mg tablet 10 mg PO BEDTIME 03/06/20 04/24/22 History levothyroxine 75 mcg tablet 50 mcg PO DAILY 03/06/20 04/24/22 History quetiapine 50 mg tablet 50 mg PO BID 03/06/20 04/24/22 History quetiapine 300 mg tablet 300 mg PO BEDTIME 07/13/21 04/24/22 History metoclopramide HCl 10 mg tablet 10 mg PO Q6H PRN nausea and 08/27/21 04/24/22 Rx (Reglan) vomiting #14 tabs atorvastatin 20 mg tablet 20 mg PO BEDTIME 04/22/22 04/24/22 History betamethasone dipropionate 0.05 % 0.05 applic topical BID eczema 04/22/22 04/24/22 History topical cream duloxetine 40 mg capsule,delayed 40 mg PO DAILY 30 days #30 caps 04/22/22 04/24/22 Rx release sprinkle methocarbamol 500 mg tablet 500 mg PO BID 04/22/22 04/24/22 History oxycodone 5 mg tablet 5 mg PO TID PRN pain 04/22/22 04/24/22 History trazodone 100 mg tablet 100 mg PO BEDTIME 04/22/22 04/24/22 History ondansetron 4 mg disintegrating 4 mg PO Q8H PRN nausea and 05/08/22 Rx tablet vomiting #14 tabs promethazine 25 mg rectal 25 mg CA Q6H PRN nausea and 05/08/22 Rx suppository vomiting #6 ea Allergies Allergy/AdvReac Type Severity Reaction Status Date / Time Sulfa (Sulfonamide Allergy Unknown Verified 04/24/22 11:00 Antibiotics) desipramine Allergy Rash Verified 04/24/22 11:00 Review of Systems Review of Systems Narrative: All other systems reviewed with the patient and are negative unless otherwise stated. Exam Vital Signs (past 8 hours): - 05/10/22 06:23 05/10/22 08:20 05/10/22 08:30 Temperature 98.1 F Pulse Rate 102 H 68 90 Respiratory Rate 24 Blood Pressure 191/88 H Pulse Oximetry 98 83 L 95 Oxygen Delivery Method Room Air 05/10/22 08:32 05/10/22 08:32 05/10/22 09:04 Temperature Pulse Rate 91 H 104 H Respiratory Rate Blood Pressure 144/67 H Pulse Oximetry 93 100 Oxygen Delivery Method 05/10/22 09:46 05/10/22 10:00 05/10/22 10:18 Temperature Pulse Rate 90 Respiratory Rate Blood Pressure 155/105 H Pulse Oximetry 80 L 81 L Oxygen Delivery Method 05/10/22 10:18 05/10/22 10:30 Temperature Pulse Rate 117 H 97 H Respiratory Rate Blood Pressure Pulse Oximetry 98 99 Oxygen Delivery Method Oxygen Delivery Method Room Air Narrative Exam Narrative: General:? WDWN female, lethargic but arousable by name. HEENT:? Normocephalic, atraumatic, extraocular muscles intact, oral pharynx is clear and mucous membranes are moist. Lungs:? CTA b/l no wheezing rhonchi or rales. Cardio:?RRR no m/r/g. Abdomen: S NT ND. Musculoskeletal:? Muscle strength and tone are equal within normal limits, no deformity. Extremities: No edema or joint effusions. No cyanosis or clubbing. Neuro:? Alert and orientated to person, place, and time. She is lethargic but arousable, no focal deficits. Objective ECG Impression: Normal sinus rhythm Rightward axis Prolonged QT As interpreted by me. Labs Result Diagrams: 05/10/22 06:30 05/10/22 06:30 Labs: Laboratory Results - last 24 hr 05/10/22 05/10/22 05/10/22 06:30 06:30 07:17 WBC 12.1 H RBC 3.61 L Hgb 10.8 L Hct 30.4 L MCV 84.4 MCH 30.0 MCHC 35.6 RDW 12.7 Plt Count 404 H Neut % (Auto) 58.4 Lymph % (Auto) 31.7 [place] % (Auto) 8.0 Eos % (Auto) 0.5 L Baso % (Auto) 1.4 Neut # (Auto) 7100 H Lymph # (Auto) 3800 [place] # (Auto) 1000 H Eos # (Auto) 100 Baso # (Auto) 200 H Sodium 118 L* D Potassium 2.5 L* Chloride 83 L Carbon Dioxide 16 L BUN 8 Creatinine 0.83 Estimated GFR > 60 BUN/Creatinine Ratio 9.6 Glucose 102 Calcium 9.1 Magnesium 1.1 L Total Bilirubin 1.0 AST 32 ALT 20 Alkaline Phosphatase 160 H Total Protein 8.1 Albumin 4.7 Globulin 3.4 Albumin/Globulin Ratio 1.4 Lipase 36 Urine Color Urine Appearance Urine pH Ur Specific [place] Urine Protein Urine Glucose (UA) Urine Ketones Urine Occult Blood Urine Nitrate Urine Bilirubin Urine Urobilinogen Ur Leukocyte Esterase Urine RBC Urine WBC Ur Squamous Epith Cells Urine Bacteria Ur Culture Indicated? Ur Random Sodium Urine Creatinine SARS-CoV-2 (PCR) 05/10/22 05/10/22 05/10/22 08:10 08:31 08:31 WBC RBC Hgb Hct MCV MCH MCHC RDW Plt Count Neut % (Auto) Lymph % (Auto) [place] % (Auto) Eos % (Auto) Baso % (Auto) Neut # (Auto) Lymph # (Auto) [place] # (Auto) Eos # (Auto) Baso # (Auto) Sodium Potassium Chloride Carbon Dioxide BUN Creatinine Estimated GFR BUN/Creatinine Ratio Glucose Calcium Magnesium Total Bilirubin AST ALT Alkaline Phosphatase Total Protein Albumin Globulin Albumin/Globulin Ratio Lipase Urine Color Urine Appearance Urine pH Ur Specific [place] Urine Protein Urine Glucose (UA) Urine Ketones Urine Occult Blood Urine Nitrate Urine Bilirubin Urine Urobilinogen Ur Leukocyte Esterase Urine RBC Urine WBC Ur Squamous Epith Cells Urine Bacteria Ur Culture Indicated? Ur Random Sodium 7 L Urine Creatinine 9.8 SARS-CoV-2 (PCR) Negative 05/10/22 09:08 WBC RBC Hgb Hct MCV MCH MCHC RDW Plt Count Neut % (Auto) Lymph % (Auto) [place] % (Auto) Eos % (Auto) Baso % (Auto) Neut # (Auto) Lymph # (Auto) [place] # (Auto) Eos # (Auto) Baso # (Auto) Sodium Potassium Chloride Carbon Dioxide BUN Creatinine Estimated GFR BUN/Creatinine Ratio Glucose Calcium Magnesium Total Bilirubin AST ALT Alkaline Phosphatase Total Protein Albumin Globulin Albumin/Globulin Ratio Lipase Urine Color Straw Urine Appearance Clear Urine pH 6.5 Ur Specific [place] <=1.005 Urine Protein Negative Urine Glucose (UA) Negative Urine Ketones Negative Urine Occult Blood Negative Urine Nitrate Negative Urine Bilirubin Negative Urine Urobilinogen 0.2 Ur Leukocyte Esterase Negative Urine RBC 0-1/hpf Urine WBC 0-1/hpf Ur Squamous Epith Cells 1-5 /hpf Urine Bacteria Occasional (0-1) Ur Culture Indicated? Cult not indicated Ur Random Sodium Urine Creatinine SARS-CoV-2 (PCR) Assessment & Plan Assessment & Plan narrative: Camilla Kim is a 71-year-old female history of major depression, bipolar, essential hypertension, hypothyroidism, hx of opiate overdose, and recurrent hyponatremia admitted with severe elctrolyte abnormalities, most likely in the setting of increased water intake at home. 1. Hyponatremia, acute, psychogenic polydipsia, with acute metabolic encephalopathy. - patient's last admission, Na improved with reasonable fluid restriction (1200 cc) and corrected appropriately. UA and Urine sodium with low specific gravity and low urine sodium, consistent with diabetes insipidus, likely due to increased water intake. - continue fluid restriction diet and regular diet - Initial sodium 118, continue to follow with q4 BMP for now, careful to avoid over-correction. - cortisol deficiency ruled out last admission. TSH within normal limits. - encephalopathy with patient slightly confused compared to normal and lethargic, secondary to hyponatremia at this time. No focal findings but if no significant improvement consider head imaging. 2. Hypokalemia, acute and present on admission - continue to monitor and replete, likely due to excess water intake as well. 3. Leukocytosis, neutrophilic, acute, unknown etiology, likely secondary to hyponatremia/hypokalemia, present on admission - WBC 12.1 likely reactive to current stress. No signs or symptoms of infection currently. 4.Bipolar disorder, acute on chronic, present on admission - Psychiatry consult completed on previous admit, discussed with concrete stone fabricating supervisor psychiatry (Antonio) today regarding multiple admissions, he has no medication recommendations at this time. Given no acute psychosis or toxicity from medications, would continue current medications and continue outpatient follow up. - On discharge 04/22/2022 patient was discharged on Wellbutrin 40 mg with a plan for her to follow up with her PCP. Thought it may be contributing to possible SIADH at that time though appears unlikely now. - Recommend patient follow up with PCP - Continue Seroquel and trazodone with as needed ativan. 5. Essential hypertension, chronic, present on admission - Continue amlodipine 6. Hyperlipidemia, chronic, present on admission -continue Lipitor 7. Hypothyroidism, acquired, chronic, present on admission -continue levothyroxine 8. Chronic Pain, acute on chronic, present on admission -ED visits to include opiate overdose 03/2022- Holding Oxycodone -toradol for pain management if needed 9. Hypomagnesemia, acute - replete as needed. 1.1 on admission. Code status:Full Surrogate decision maker: Britton Spouse COVID PCR:Negative DVT/VTE prophylaxis: Lovenox Disposition: Patient admitted as inpatient, anticipate her stay will exceed two midnights given severity of her electrolyte abnormalities including hypomagenesemia I have utilized all available immediate resources to obtain, update, or review the patient's current medications. COVID-19 COVID-19 status: Negative Time Spent With Patient Critical Care time: I spent a total of [] minutes of critical care time on this patient's care today; this time is exclusive of procedural time.
[2022-05-10 12:03] LABS: Blood Urea Nitrogen 7 mg/dL (7-17); Calcium 9.2 mg/dL (8.4-10.2); Carbon Dioxide 20 mmol/L (22-32); Chloride 92 mmol/L (98-107); Estimated Glomerular Filt Rate > 60 mL/min (>60); Glucose 94 mg/dL (80-110); HEMOLYSIS < 15 (0-50); Potassium 2.9 mmol/L (3.4-5.1); Sodium 127 mmol/L (137-145)
[2022-05-10] MEDS: LORazepam 2 MG/ML INJ 0.5 MG IV (20:29)
[2022-05-10] MEDS: QUETIAPINE 25 MG TABLET 50 MG PO (20:29)
[2022-05-10] MEDS: QUETIAPINE 100 MG TABLET 300 MG PO (20:30)
[2022-05-10] MEDS: TRAZODONE 100 MG TABLET PO (20:30)
[2022-05-10 21:57] LABS: BUN Creatinine Ratio 8.3 (6-22); Blood Urea Nitrogen 7 mg/dL (7-17); Calcium 8.7 mg/dL (8.4-10.2); Carbon Dioxide 20 mmol/L (22-32); Chloride 105 mmol/L (98-107); Estimated Glomerular Filt Rate > 60 mL/min (>60); Glucose 85 mg/dL (80-110); HEMOLYSIS < 15 (0-50); Potassium 3.5 mmol/L (3.4-5.1); Sodium 135 mmol/L (137-145)
[2022-05-11] VITALS (9 sets, daily range): BP systolic 110–150; BP diastolic 68–89; PULSE 88–127; RESP 16–18; TEMP 36.1–36.6; O2SAT 95–100
[2022-05-11 02:52] LABS: BUN Creatinine Ratio 7.8 (6-22); Blood Urea Nitrogen 7 mg/dL (7-17); Calcium 8.7 mg/dL (8.4-10.2); Carbon Dioxide 20 mmol/L (22-32); Chloride 105 mmol/L (98-107); Estimated Glomerular Filt Rate > 60 mL/min (>60); Glucose 71 mg/dL (80-110); HEMOLYSIS < 15 (0-50); Potassium 3.5 mmol/L (3.4-5.1); Sodium 135 mmol/L (137-145)
[2022-05-11] MEDS: PANTOPRAZOLE DR 20 MG TABLET PO (05:47)
[2022-05-11 06:26] LABS: Add Manual Diff / Slide Review NO; Basophils Absolute Auto 100 /uL (0-100); Basophils Percent Auto 1.2 % (0-2); Eosinophils Absolute Auto 0 /uL (0-450); Eosinophils Percent Auto 0.4 % (2-4); Hematocrit 31.1 % (36-46); Hemoglobin 10.9 g/dL (12.0-16.0); Lymphocytes Absolute Auto 2000 /uL (1100-4500); Lymphocytes Percent Auto 24.3 % (25-40); Mean Corpuscular Hemoglobin 30.6 PG (26-34); Mean Corpuscular Volume 87.4 fL (80-100); Monocytes Absolute Auto 700 /uL (0-900); Monocytes Percent Auto 9.1 % (3-14); Neutrophils Absolute Auto 5300 /uL (1500-7000); Platelet Count 365 X10^3/uL (150-400); Red Blood Cell Count 3.56 X10^6/uL (4.0-5.2); Red Cell Distribution Width 12.8 % (11.6-14.8); White Blood Cell Count 8.1 X10^3/uL (4.5-11.0)
[2022-05-11 06:33] LABS: Blood Urea Nitrogen 8 mg/dL (7-17); Calcium 8.8 mg/dL (8.4-10.2); Carbon Dioxide 18 mmol/L (22-32); Chloride 105 mmol/L (98-107); Estimated Glomerular Filt Rate > 60 mL/min (>60); Glucose 52 mg/dL (80-110); HEMOLYSIS 22 (0-50); Potassium 3.8 mmol/L (3.4-5.1); Sodium 135 mmol/L (137-145)
[2022-05-11] MEDS: LEVOTHYROXINE 75 MCG TABLET 50 MCG PO (08:48)
[2022-05-11] MEDS: AMLODIPINE 5 MG TABLET 10 MG PO (08:49)
[2022-05-11] MEDS: QUETIAPINE 25 MG TABLET 50 MG PO ×2 (08:49→20:36)
--- NOTE | 2022-05-11 11:34 | CM.DANOTE ---
Patient is a 71 yo female who was admitted on 05/10/22 for Vomiting. Pt has MCR and A[employer] for insurance and her PCP is Dagmar Perdue. EMR was reviewed. Per MD, pt with hx of bipolar and major depression and hx of opiate OD and admitted for hyponatremia. Pt is a Readmit with recent admission last month on 04/22/22 and again on 04/24/22 for similar. Pt tends to drink excessive amounts of water which contributes to her sodium levels. Hand Nailer attempted to provide a chart to assist pt in tracking her recommended amounts of daily water at last admission. MD consulted with Psychiatrist to determine if any further med recommendations towards assisting pt and no psych med changes at this time. SW met bedside with pt and explained role and pt confirms she lives with her spouse in an apartment here in [place] and her works multimedia developer at [employer]. She relies on him for transportation and home management. Pt confirms she has a hx of HH in the past but cannot remember which agency and pt would not be opposed to HH RN at d/c if needed. Pt denies any other local supportive family and pt does not work. Per MD, does not feel pt would likely meet HH criteria and HH RN would not have any new meds to help manage and no wound care or needs at this time beyond pt needing monitoring for water consumption. Plan: SW to follow for possible ongoing discussion with spouse towards assist in ways to help reduce pt's risk for readmission for sodium/hyponatremia needs. CRU[facility] [place] Discharge Planning/Care Management CM Discharge Assessment Start: 05/10/22 15:10 Freq: Status: Active Protocol: Document 05/10/22 15:10 HS (Rec: 05/10/22 15:11 [id number]) Discharge Planning Assessment Assigned Valve Inserter Shannon Hurt RNmotel manager DPOA/Assigned Designee Name Kathryn Novoa- significant other- Contact Information [phone] Advance Directives? No Advance Directives on File No History Provided By Patient,Medical Record Prior Living Arrangements House Household Members spouse Type of transporation used prior to Drives own vehicle admit Independent with ADL's Yes Is patient alert and oriented? Yes Caregiver for Another No Barriers to Discharge No Comment Pending needs. Discharge Plan Home Referrals Initiated None needed Whiteboard Updated in Patient Room with Yes name and ext. # of Valve Inserter Review Status In Process Next Review Type Continued Stay Review Document 05/10/22 15:12 HS (Rec: 05/10/22 15:13 [id number]) Discharge Planning Assessment Advance Directives? No Advance Directives on File No History Provided By Patient,Medical Record Prior Living Arrangements House Household Members spouse Type of transporation used prior to Drives own vehicle admit Independent with ADL's Yes Is patient alert and oriented? Yes Caregiver for Another No Comment Pending needs. Discharge Plan Home Referrals Initiated None needed Document 05/10/22 15:14 HS (Rec: 05/10/22 15:14 [id number]) Discharge Planning Assessment Advance Directives? No Advance Directives on File No History Provided By Patient,Medical Record Prior Living Arrangements House Household Members spouse Type of transporation used prior to Drives own vehicle admit Independent with ADL's Yes Is patient alert and oriented? Yes Caregiver for Another No Barriers to Discharge No Comment Pending needs. Discharge Plan Home Referrals Initiated None needed Whiteboard Updated in Patient Room with Yes name and ext. # of Valve Inserter Review Status In Process Next Review Type Continued Stay Review
--- NOTE | 2022-05-11 12:04 | PM.PN.1 ---
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 Patient is lethargic presently. She denies any complaints. I attempted to determine how long she is been on her current psych meds, but she states ?it is in my chart?. She crawls back up and attempts to go to sleep. When I asked her what she thinks is making her so thirsty she states ?driving thirst ?. When I asked her to clarify what that means she stated driving at 80 mph. Again when asked to clarify, she states that it makes sense and she does not need to clarify. Exam Vital Signs (past 8 hours): - 05/11/22 08:11 05/11/22 08:00 05/11/22 12:00 Temperature 97.0 F L Pulse Rate 127 H Respiratory Rate 18 Blood Pressure 112/74 Pulse Oximetry 97 96 97 Oxygen Delivery Method Room Air Room Air Oxygen Flow Rate 0 Oxygen Delivery Method Room Air Oxygen Flow Rate 0 Narrative Exam Narrative: GEN: Lethargic but follows commands, NAD HEENT:NC, Face symmetric CHEST: Respiratory excursions symmetric, CTAB CV: RRR, no M/R/G ABD: Soft, NT/ND, BT present in all 4 quadrants, no organomegaly or masses EXTR: warm, well perfused, no C/C/E SKIN: warm and dry, no rash NEURO: Lethargic, oriented to self, otherwise nonfocal Objective Labs Result Diagrams: 05/11/22 06:15 05/11/22 06:15 Labs: Laboratory Results - last 24 hr 05/10/22 05/10/22 05/11/22 11:33 21:32 02:31 WBC RBC Hgb Hct MCV MCH MCHC RDW Plt Count Neut % (Auto) Lymph % (Auto) [place] % (Auto) Eos % (Auto) Baso % (Auto) Neut # (Auto) Lymph # (Auto) [place] # (Auto) Eos # (Auto) Baso # (Auto) Sodium 127 L 135 L 135 L Potassium 2.9 L 3.5 3.5 Chloride 92 L 105 105 Carbon Dioxide 20 L 20 L 20 L BUN 7 7 7 Creatinine 0.78 0.84 0.90 Estimated GFR > 60 > 60 > 60 BUN/Creatinine Ratio 9.0 8.3 7.8 Glucose 94 85 71 L Calcium 9.2 8.7 8.7 Magnesium 05/11/22 05/11/22 05/11/22 06:15 06:15 06:15 WBC 8.1 RBC 3.56 L Hgb 10.9 L Hct 31.1 L MCV 87.4 D MCH 30.6 MCHC 35.0 RDW 12.8 Plt Count 365 Neut % (Auto) 65.0 Lymph % (Auto) 24.3 L [place] % (Auto) 9.1 Eos % (Auto) 0.4 L Baso % (Auto) 1.2 Neut # (Auto) 5300 Lymph # (Auto) 2000 [place] # (Auto) 700 Eos # (Auto) 0 Baso # (Auto) 100 Sodium 135 L Potassium 3.8 Chloride 105 Carbon Dioxide 18 L BUN 8 Creatinine 0.89 Estimated GFR > 60 BUN/Creatinine Ratio 9.0 Glucose 52 L Calcium 8.8 Magnesium 2.0 Cancelled [facility] Medical History Bipolar disorder Eczema Hypertension Hypothyroidism (acquired) Surgical History Hx of cholecystectomy Family History Mother Alcohol abuse Father CVA (cerebral vascular accident) Social History household members: spouse Smoking Status: Never smoker alcohol intake: former Assessment & Plan Assessment & Plan narrative: 1. Psychogenic polydipsia resulting in acute recurrent hyponatremia On arrival to the Emergency Department, sodium was 118 on May 10 at 6:30 a.m.(down from 133 on 05/08/22). By 11:30, it was up to 127 at the time of admission. Last evening, sodium was up to 135 where it has remained since that time. During prior hospitalization, Psychiatry consulted and had no recommendations. Patient needs to be placed on fluid restriction which is consistently followed. Unfortunately, her spouse works and she is home alone much of the time. It sounds like patient has not had any recent medication changes. This is her 3rd hospitalization related to hyponatremia from psychogenic polydipsia. She may ultimately require a higher level of care for monitoring of her fluid intake. Well her electrolyte derangement has improved today, she remains lethargic for me. Patient's bedside nurse reports that she was much more engaged this morning. Will continue to monitor. 2. Hypokalemia Improved after repletion. Potassium is up to 3.8 today. 3. Leukocytosis Resolved. Likely reactive in nature. 4. Bipolar disorder On seroquel, duloxetine, and trazodone 5. Essential hypertension Moderate blood pressure elevation since admission. Presently down to 112/74. She is receiving amlodipine per her home dosing regimen. 6. Hyperlipidemia Continuing her usual statin therapy. 7. Hypothyroidism Continue levothyroxine. No prior TSH in the system. Will obtain one. 8. Hypomagnesemia Improved with repletion. Up to 2.0 today. Will recheck tomorrow. Code status Full Prophylaxis Lovenox Disposition Home with possibly in the next 24 hours. Time Spent With Patient Critical Care time: I spent a total of [] minutes of critical care time on this patient's care today; this time is exclusive of procedural time.
--- NOTE | 2022-05-11 14:27 | PC.NURSE ---
Day shift: Pt asleep with no s/s of pain or discomfort. Was right side sleeping and is now left side sleeping. Pt's Spouse in room.
[2022-05-11 14:36] LABS: Thyroid Stimulating Hormone 1.67 uIU/mL (0.47-4.68)
[2022-05-11] MEDS: ATORVASTATIN 20 MG TABLET PO (20:36)
[2022-05-11] MEDS: QUETIAPINE 100 MG TABLET 300 MG PO (20:36)
[2022-05-11] MEDS: TRAZODONE 100 MG TABLET PO (20:37)
[2022-05-12] VITALS (11 sets, daily range): BP systolic 100–114; BP diastolic 55–71; PULSE 69–115; RESP 16–22; TEMP 36.1–36.7; O2SAT 96–100
[2022-05-12 04:00] LABS: Add Manual Diff / Slide Review NO; Basophils Absolute Auto 100 /uL (0-100); Eosinophils Absolute Auto 100 /uL (0-450); Hematocrit 33.1 % (36-46); Hemoglobin 11.3 g/dL (12.0-16.0); Lymphocytes Absolute Auto 2400 /uL (1100-4500); Lymphocytes Percent Auto 27.2 % (25-40); Mean Corpuscular HGB Conc 34.2 % (30-36); Mean Corpuscular Hemoglobin 29.8 PG (26-34); Mean Corpuscular Volume 87.3 fL (80-100); Monocytes Absolute Auto 700 /uL (0-900); Monocytes Percent Auto 7.7 % (3-14); Neutrophils Absolute Auto 5600 /uL (1500-7000); Neutrophils Percent Auto 63.1 % (50-75); Platelet Count 377 X10^3/uL (150-400); Red Blood Cell Count 3.79 X10^6/uL (4.0-5.2); Red Cell Distribution Width 12.8 % (11.6-14.8); White Blood Cell Count 8.9 X10^3/uL (4.5-11.0)
[2022-05-12 04:09] LABS: BUN Creatinine Ratio 11.7 (6-22); Blood Urea Nitrogen 12 mg/dL (7-17); Calcium 9.4 mg/dL (8.4-10.2); Carbon Dioxide 25 mmol/L (22-32); Chloride 100 mmol/L (98-107); Estimated Glomerular Filt Rate 58 mL/min (>60); Glucose 152 mg/dL (80-110); HEMOLYSIS < 15 (0-50); Sodium 136 mmol/L (137-145)
[2022-05-12] MEDS: PANTOPRAZOLE DR 20 MG TABLET PO (06:24)
[2022-05-12] MEDS: AMLODIPINE 5 MG TABLET 10 MG PO (10:01)
[2022-05-12] MEDS: ENOXAPARIN 40 MG/0.4 ML SYRINGE SUBCUT (10:01)
[2022-05-12] MEDS: POTASSIUM CHLORIDE 20 MEQ TAB 40 MEQ PO (10:02)
[2022-05-12] MEDS: QUETIAPINE 25 MG TABLET 50 MG PO ×2 (10:02→20:07)
[2022-05-12] MEDS: LEVOTHYROXINE 50 MCG TABLET PO (10:05)
--- NOTE | 2022-05-12 11:45 | P.PN_ITS ---
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 Currently not complaining of any fever chills vomiting or diaphoresis. Does have some persistent nausea. No chest pain or palpitations. No shortness of breath wheezing or cough. No abdominal pain. Able to move all extremities volitionally. Generally feels much better than on presentation. Exam Vital Signs (past 8 hours): - 05/12/22 04:00 05/12/22 05:53 05/12/22 09:33 Temperature 97.0 F L Pulse Rate 99 H Respiratory Rate 19 Blood Pressure 103/69 Pulse Oximetry 97 97 99 Oxygen Delivery Method Room Air Room Air 05/12/22 10:09 Temperature 97.4 F L Pulse Rate 115 H Respiratory Rate 18 Blood Pressure 112/71 Pulse Oximetry 98 Oxygen Delivery Method Oxygen Delivery Method Room Air Oxygen Flow Rate 0 Narrative Exam Narrative: GEN:? Alert and oriented and in no acute medical distress HEENT:Face symmetric, head normocephalic. Extraocular movements normal. Wearing glasses. CHEST: Respiratory excursions symmetric. Chest clear to auscultation. No scrap crusher ckles, no wheezes. CV: RRR, no M/R/G. Heart sounds S1 and S2. ABD: Soft, NT/ND, bowel sounds present, no organomegaly or masses EXTR: warm, well perfused, normal color. Able to move all extremities volitionally. SKIN: warm and dry, no rash. No lesions. NEURO:? No localized neurological signs. Grossly normal cranial nerves 3-12. Objective Labs Result Diagrams: 05/12/22 03:29 05/12/22 03:29 Labs: Laboratory Results - last 24 hr 05/11/22 05/12/22 05/12/22 06:15 03:29 03:29 WBC 8.9 RBC 3.79 L Hgb 11.3 L Hct 33.1 L MCV 87.3 MCH 29.8 MCHC 34.2 RDW 12.8 Plt Count 377 Neut % (Auto) 63.1 Lymph % (Auto) 27.2 [place] % (Auto) 7.7 Eos % (Auto) 1.0 L Baso % (Auto) 1.0 Neut # (Auto) 5600 Lymph # (Auto) 2400 [place] # (Auto) 700 Eos # (Auto) 100 Baso # (Auto) 100 Sodium 136 L Potassium 3.0 L Chloride 100 Carbon Dioxide 25 BUN 12 Creatinine 1.03 Estimated GFR 58 L BUN/Creatinine Ratio 11.7 Glucose 152 H D Calcium 9.4 Magnesium 2.0 TSH 1.67 PFSH Medical History Bipolar disorder Eczema Hypertension Hypothyroidism (acquired) Surgical History Hx of cholecystectomy Family History Mother Alcohol abuse Father CVA (cerebral vascular accident) Social History household members: spouse Smoking Status: Never smoker alcohol intake: former Assessment & Plan Assessment & Plan narrative: 1. Psychogenic polydipsia resulting in acute recurrent hyponatremia. Also nausea and vomiting at the time. Some persistent nausea. Sodium has stabilized at 136 today. Continue to follow stability. During prior hospitalization, Psychiatry consulted and had no recommendations.? Patient needs to be placed on fluid restriction which is consistently followed.? Unfortunately, her spouse works and she is home alone much of the time.? It sounds like patient has not had any recent medication changes.? This is her 3rd hospitalization related to hyponatremia from psychogenic polydipsia.? She may ultimately require a higher level of care for monitoring of her fluid intake.? Well her electrolyte derangement has improved today. Currently has hypokalemia. Will replace.? Discussed lab results with the patient. 2. Hypokalemia Improved after repletion initially.? Potassium is up to 3.0 today. Continue the oral replacement. Monitor potassium level in the morning. 3. Leukocytosis Resolved.? Likely reactive in nature. 4. Bipolar disorder On seroquel, duloxetine, and trazodone 5. Essential hypertension Moderate blood pressure elevation since admission.? Currently 112/71.? She is receiving amlodipine per her home dosing regimen. 6. Hyperlipidemia Continuing her usual statin therapy. 7. Hypothyroidism Continue levothyroxine.? No prior TSH in the system.? TSH normal measured today. Assess free T3 to see if elevated and cause of tachycardia 8. Hypomagnesemia Improved with repletion.? Up to 2.0 today.? Normal today. 9. Tachycardia. Unclear the cause. May need to change antihypertension medication to address tachycardia as well. Continue to monitor. Code status Full Prophylaxis Lovenox Substitute decision maker is named Britton. Disposition Home with . Expect discharge tomorrow. Time Spent With Patient Critical Care time: I spent a total of [] minutes of critical care time on this patient's care today; this time is exclusive of procedural time.
[2022-05-12] MEDS: POTASSIUM CHLORIDE 20 MEQ/15 ML UDC PO (15:05)
[2022-05-12] MEDS: ONDANSETRON 4 MG/2 ML INJ IV (20:06)
[2022-05-12] MEDS: TRAZODONE 100 MG TABLET PO (20:07)
[2022-05-12] MEDS: SODIUM CHLORIDE 0.9% FLUSH 10 ML IV (20:07)
[2022-05-12] MEDS: QUETIAPINE 100 MG TABLET 300 MG PO (20:07)
[2022-05-12] MEDS: ATORVASTATIN 20 MG TABLET PO (20:07)
[2022-05-12] MEDS: LORazepam 2 MG/ML INJ 0.5 MG IV (20:17)
[2022-05-13 00:06] VITALS: O2SAT 97
[2022-05-13 04:43] LABS: Add Manual Diff / Slide Review NO; Basophils Absolute Auto 200 /uL (0-100); Eosinophils Absolute Auto 200 /uL (0-450); Eosinophils Percent Auto 2.2 % (2-4); Hematocrit 30.7 % (36-46); Hemoglobin 10.6 g/dL (12.0-16.0); Lymphocytes Absolute Auto 2900 /uL (1100-4500); Lymphocytes Percent Auto 38.6 % (25-40); Mean Corpuscular HGB Conc 34.4 % (30-36); Mean Corpuscular Hemoglobin 30.2 PG (26-34); Mean Corpuscular Volume 87.9 fL (80-100); Monocytes Absolute Auto 600 /uL (0-900); Monocytes Percent Auto 7.3 % (3-14); Neutrophils Absolute Auto 3700 /uL (1500-7000); Neutrophils Percent Auto 48.9 % (50-75); Platelet Count 361 X10^3/uL (150-400); Red Cell Distribution Width 13.3 % (11.6-14.8); White Blood Cell Count 7.6 X10^3/uL (4.5-11.0)
[2022-05-13 04:47] LABS: BUN Creatinine Ratio 11.9 (6-22); Blood Urea Nitrogen 12 mg/dL (7-17); Calcium 9.1 mg/dL (8.4-10.2); Carbon Dioxide 23 mmol/L (22-32); Chloride 105 mmol/L (98-107); Estimated Glomerular Filt Rate 59 mL/min (>60); Glucose 80 mg/dL (80-110); HEMOLYSIS < 15 (0-50); Magnesium 1.8 mg/dL (1.6-2.3); Potassium 4.4 mmol/L (3.4-5.1); Sodium 138 mmol/L (137-145)
[2022-05-13 04:57] LABS: Free T3, Triiodothyronine Free 2.33 pg/mL (2.77-5.27)
[2022-05-13 05:00] VITALS: BP 138/73; PULSE 98; RESP 15; TEMP 36.6; O2SAT 97
[2022-05-13 05:04] VITALS: O2SAT 97
[2022-05-13 09:42] VITALS: O2SAT 96
[2022-05-13] MEDS: AMLODIPINE 5 MG TABLET 10 MG PO (09:46)
[2022-05-13] MEDS: POTASSIUM CHLORIDE 20 MEQ/15 ML UDC PO ×2 (09:46→17:03)
[2022-05-13] MEDS: ENOXAPARIN 40 MG/0.4 ML SYRINGE SUBCUT (09:46)
[2022-05-13] MEDS: QUETIAPINE 25 MG TABLET 50 MG PO (09:46)
[2022-05-13] MEDS: SODIUM CHLORIDE 0.9% FLUSH 10 ML IV (09:47)
--- NOTE | 2022-05-13 12:41 | CM.DPC ---
DCP Cont: Discussed patient during team rounds. Dr. Sung indicated, that patient could be ready for discharge tomorrow. Patient lives with spouse, is an excessive water drinker. P: DCP to continue to follow. Plan is home when deemed medically stable, possibly tomorrow. Taylor Odom RN/Chemist Steroids
[2022-05-13 12:58] VITALS: O2SAT 97
--- NOTE | 2022-05-13 13:18 | P.DS_ITS ---
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 Currently not complaining of any fever chills vomiting or diaphoresis.? No nausea or vomiting. No chest pain or palpitations.? No shortness of breath wheezing or cough.? No abdominal pain.? Able to move all extremities volitionally.? Indicates she is exhausted from being in the hospital and feels she will be better when she gets home. Discharge Providers Provider Date of admission: 05/10/22 09:20 Discharge Date: 05/13/22 Primary care physician: REBECA Garcia Consults: None. Discharge provider: Maddie Smith MD Summary Hospital Course Discharge Diagnosis: 1. Psychogenic polydipsia resulting in acute recurrent hyponatremia.? 2. Hypokalemia 3. Leukocytosis 4. Bipolar disorder 5. Essential hypertension 6. Hyperlipidemia 7. Hypothyroidism, not adequately replaced. 8. Hypomagnesemia 9. Tachycardia.? 10. Nausea and vomiting Hospital Course: Patient presented after a prolonged multiple day course of nausea vomiting and only tolerating oral intake of water. Likely excessive water intake and resulted in polydipsia causing hyponatremia. Patient has had problems with psychogenic polydipsia in the past. Fluid restriction to 1200 mils per day was effective treatment. Vomiting was no longer present during the hospital stay and the patient's nausea was settled with ondansetron. On presentation there was leukocytosis however this resolved quickly. Patient was hypokalemic on presentation and this has been replaced and patient is stable and will be discharged with ongoing replacement. Bipolar medications were continued during the hospital stay. Antihypertensive medications were continued during the hospital stay. Atorvastatin was continued during the hospital stay. TSH was noted to be normal however free T3 was low and patient is levothyroxine was increased to 75 mcg per day (documentation the patient was only taking 50 mcg per day, however if the patient actually was taking 75 mcg per day then dose should be increased to 88 -100 mcg per day. Follow-up in 1 month with TSH and free T3 to establish status at that time should be completed by family physician. Patient had hypo magnesium on presentation but this corrected to normal during the hospital stay. Tachycardia on presentation resolved to normal during hospital stay. Nausea and vomiting subsided during the hospital stay. On the day of discharge, the patient had decreased energy but felt that she would feel better once discharge to home. Status at Discharge Cognitive/behavioral status at discharge: at baseline, oriented Functional status at discharge: independent ambulation Time Spent with Patient Time spent: Greater than 30 minutes Exam Vital Signs (past 8 hours): - 05/13/22 09:42 05/13/22 12:58 Pulse Oximetry 96 97 Oxygen Delivery Method Room Air Room Air Oxygen Delivery Method Room Air Oxygen Flow Rate 0 Narrative Exam Narrative: GEN:? Alert and oriented and in no acute medical distress. Prefers to be lying in bed. HEENT:Face symmetric, head normocephalic.? Extraocular movements normal.? Wearing glasses. CHEST: Respiratory excursions symmetric.? Chest clear to auscultation.? No crackles, no wheezes. CV: RRR, no M/R/G.? Heart sounds S1 and S2. ABD: Soft, NT/ND, bowel sounds present, no organomegaly or masses EXTR: warm, well perfused, normal color.? Able to move all extremities volitionally. SKIN: warm and dry, no rash.? No lesions. NEURO:? No localized neurological signs.? Grossly normal cranial nerves 3-12. Objective Labs Result Diagrams: 05/13/22 03:50 05/13/22 03:50 Labs: Laboratory Results - last 24 hr 05/13/22 05/13/22 05/13/22 03:50 03:50 03:50 WBC 7.6 RBC 3.50 L Hgb 10.6 L Hct 30.7 L MCV 87.9 MCH 30.2 MCHC 34.4 RDW 13.3 Plt Count 361 Neut % (Auto) 48.9 L Lymph % (Auto) 38.6 [place] % (Auto) 7.3 Eos % (Auto) 2.2 Baso % (Auto) 3.0 H Neut # (Auto) 3700 Lymph # (Auto) 2900 [place] # (Auto) 600 Eos # (Auto) 200 Baso # (Auto) 200 H Sodium 138 Potassium 4.4 D Chloride 105 Carbon Dioxide 23 BUN 12 Creatinine 1.01 Estimated GFR 59 L BUN/Creatinine Ratio 11.9 Glucose 80 Calcium 9.1 Magnesium 1.8 Free T3 2.33 L [facility] Medical History Bipolar disorder Eczema Hypertension Hypothyroidism (acquired) Surgical History Hx of cholecystectomy Family History Mother Alcohol abuse Father CVA (cerebral vascular accident) Social History household members: spouse Smoking Status: Never smoker alcohol intake: former Discharge Plan Discharge Plan Patient Disposition: Home Provider Discharge Comment: Patient is to obtain a prescriptions on the way home and follow up with family physician (Dagmar Perdue) within 1 week. Discharge orders & Medications Prescriptions: New potassium chloride 20 mEq/15 mL Liquid 20 meq PO BIDWM Qty: 1200 0RF pantoprazole 20 mg Tablet,Delayed Release (Dr/Ec) 20 mg PO 0600 Qty: 30 0RF levothyroxine [Synthroid] 75 mcg Tablet 75 mcg PO DAILY@0600 Qty: 30 0RF Continued amlodipine 10 mg Tablet 10 mg PO BEDTIME quetiapine 50 mg Tablet 50 mg PO BID quetiapine 300 mg Tablet 300 mg PO BEDTIME metoclopramide HCl [Reglan] 10 mg tablet 10 mg PO Q6H PRN (Reason: nausea and vomiting) Qty: 14 0RF atorvastatin 20 mg tablet 20 mg PO BEDTIME methocarbamol 500 mg Tablet 500 mg PO BID trazodone 100 mg Tablet 100 mg PO BEDTIME betamethasone dipropionate 0.05 % cream 0.05 applic topical BID Label Comments: Apply topically 2 (two) times a day oxycodone 5 mg Tablet 5 mg PO TID PRN (Reason: pain) duloxetine 40 mg capsule, delayed rel sprinkle 40 mg PO DAILY 30 Days Qty: 30 0RF ondansetron 4 mg tablet,disintegrating 4 mg PO Q8H PRN (Reason: nausea and vomiting) Qty: 14 0RF promethazine 25 mg suppository 25 mg [place] Q6H PRN (Reason: nausea and vomiting) Qty: 6 0RF Discontinued levothyroxine 75 mcg Tablet 50 mcg PO DAILY Follow up/Referrals: Dagmar Perdue ARNP [Primary Care Provider] - Visit Report/Discharge Packet Instructions: DI for Hypokalemia, DI for Hyponatremia, How to Prevent Falls Stand Alone Forms: Patient Portal/API, Stroke Signs & Symptoms Discharge Data Primary Care Provider: Dagmar Perdue
[2022-05-13 17:00] VITALS: O2SAT 98
--- NOTE | 2022-05-13 17:59 | PC.NURSE ---
Day shift: Paperwork signed and all questions answered. Pt remains pain and nausea free. Steady on feet also. Pt has all personal belongings. Spouse in room for d/c teachings. Spouse is driving her home. Left unit via WC with this blog writer at approx 1750. scripts sent electronic to Pt's pharmacy. Went over these new meds with Pt and Spouse.
== END 2022-05-13 18:01 | disposition home or self-care (01) | DRG 640 ==
LOC: ED 08:21 → AC 09:20
PROVIDERS: Emergency Medicine; Family Medicine; Neuromusculoskeletal Medicine, Sports Medicine; Admitting Provider Internal Medicine; Emergency Provider Emergency Medicine; PCP Nurse Practitioner Family; Referring Provider Emergency Medicine; Visit Provider Internal Medicine
DX: E87.1 Hypo-osmolality and hyponatremia (principal); G93.41 Metabolic encephalopathy; R63.1 Polydipsia; E87.6 Hypokalemia; F31.9 Bipolar disorder, unspecified; I10 Essential (primary) hypertension; E78.5 Hyperlipidemia, unspecified; E03.9 Hypothyroidism, unspecified; G89.29 Other chronic pain; E83.42 Hypomagnesemia; R00.0 Tachycardia, unspecified; R11.2 Nausea with vomiting, unspecified; Z20.822 Contact with and (suspected) exposure to COVID-19; K52.9 Noninfective gastroenteritis and colitis, unspecified; R10.9 Unspecified abdominal pain
CPT/HCPCS: 36415; 74022; 74177; 80048; 80053; 81001; 81003; 81015; 81025; 82570; 82962; 83690; 83735; 84300; 84443; 84481; 85025; 87635; 93005; 93010; 96365; 96366; 96374; 96375; 99284; 99285; C9803; C9113; J1630; J1650; J2060; J2405; J3475; Q9967

== ENCOUNTER 2022-12-19 16:37 | Emergency (ER) | payer MEDICARE, SELFPAY ==
[2022-12-19] VITALS (13 sets, daily range): BP systolic 134–154; BP diastolic 61–94; PULSE 95–143; RESP 22–52; TEMP 36.9; O2SAT 89–100; BMI 28.1
--- NOTE | 2022-12-19 17:06 | DI.RAD.S_ITS ---
PROCEDURE: XR CHEST 1V INDICATIONS: chest pain TECHNIQUE: One view of the chest was acquired. COMPARISON: [facility], CR, XR CHEST 1V, 03/06/2020, 18:16. FINDINGS: Surgical changes and devices: None. Lungs and pleura: Lungs are clear. No pleural effusions or pneumothorax. Mediastinum: Mediastinal contours appear normal. Heart size is normal. Bones and chest wall: No suspicious bony lesions. Overlying soft tissues appear unremarkable. IMPRESSION: No acute cardiopulmonary process. Dictated by: Dg Willett M.D. on 12/19/2022 at 18:58 Approved by: Dg Willett M.D. on 12/19/2022 at 18:58
[2022-12-19] MEDS: MORPHINE 2 MG/ML INJ IV (17:09)
[2022-12-19 17:19] LABS: Add Manual Diff / Slide Review NO; Basophils Absolute Auto 200 /uL (0-100); Basophils Percent Auto 1.1 % (0-2); Eosinophils Absolute Auto 600 /uL (0-450); Eosinophils Percent Auto 3.7 % (2-4); Hemoglobin 11.5 g/dL (12.0-16.0); Lymphocytes Absolute Auto 5100 /uL (1100-4500); Lymphocytes Percent Auto 30.4 % (25-40); Mean Corpuscular HGB Conc 33.8 % (30-36); Mean Corpuscular Hemoglobin 29.7 PG (26-34); Mean Corpuscular Volume 87.9 fL (80-100); Monocytes Absolute Auto 700 /uL (0-900); Monocytes Percent Auto 4.1 % (3-14); Neutrophils Absolute Auto 10200 /uL (1500-7000); Neutrophils Percent Auto 60.7 % (50-75); Platelet Count 360 X10^3/uL (150-400); Red Blood Cell Count 3.87 X10^6/uL (4.0-5.2); Red Cell Distribution Width 13.3 % (11.6-14.8); White Blood Cell Count 16.9 X10^3/uL (4.5-11.0)
[2022-12-19 17:25] LABS: Ethanol (ETOH) < 10 mg/dL
[2022-12-19 17:26] LABS: Alanine Aminotransferase 20 IU/L (<35); Albumin 4.4 g/dL (3.5-5.0); Albumin Globulin Ratio 1.3 (1.0-2.8); Alkaline Phosphatase 149 U/L (38-126); Aspartate Aminotransferase 32 IU/L (14-36); BUN Creatinine Ratio 19.6 (6-22); Bilirubin Total 0.5 mg/dL (0.2-1.3); Blood Urea Nitrogen 22 mg/dL (7-17); Calcium 9.4 mg/dL (8.4-10.2); Carbon Dioxide 20 mmol/L (22-32); Chloride 106 mmol/L (98-107); Creatine Kinase 244 U/L (30-135); Estimated Glomerular Filt Rate 52 mL/min (>60); Globulin 3.3 g/dL (1.7-4.1); Glucose 125 mg/dL (80-110); Lipase 56 U/L (23-300); Potassium 3.9 mmol/L (3.4-5.1); Sodium 137 mmol/L (137-145); Total Protein 7.7 g/dL (6.3-8.2)
[2022-12-19 17:30] LABS: HEMOLYSIS 59 (0-50)
[2022-12-19 17:38] LABS: Troponin I < 0.012 ng/mL (0.01-0.034)
[2022-12-19 17:56] LABS: Thyroid Stimulating Hormone 0.616 uIU/mL (0.47-4.68)
[2022-12-19] MEDS: HYDROMORPHONE 1 MG INJ IV (18:53)
--- NOTE | 2022-12-19 18:56 | ED_ITS ---
HPI - Recheck/Abnormal Lab/Rx General Chief Complaint: Recheck/Abnormal Lab/Rx Stated Complaint: hx low sodium/ not acting herself Time Seen by Provider: 12/19/22 17:05 Source: patient, family and EMS Mode of arrival: EMS History of Present Illness HPI narrative: Patient is a 72-year-old female. Has chronic low back pain. Also has a history of low sodium. According to her she woke up this morning with increase in back pain. She is normally on oxycodone but ran out of her prescription. Her last dose was yesterday. They have a new prescription for this at the pharmacy but have not filled it. She states her pain is in her lower back. She also states that she is urinating all over the place. She also feels like she is constipated. Is having nausea but no vomiting. No fevers. Just generally does not feel very well in his and very extreme pain in her lower back. No skin rashes. states that he is acting like this in the past when her sodium was very low. Related Data Home Medications Medication Instructions Recorded Confirmed amlodipine 10 mg tablet 10 mg PO BEDTIME 03/06/20 05/10/22 quetiapine 50 mg tablet 50 mg PO BID 03/06/20 05/10/22 quetiapine 300 mg tablet 300 mg PO BEDTIME 07/13/21 05/10/22 atorvastatin 20 mg tablet 20 mg PO BEDTIME 04/22/22 05/10/22 betamethasone dipropionate 0.05 % 0.05 applic topical BID eczema 04/22/22 05/10/22 topical cream methocarbamol 500 mg tablet 500 mg PO BID 04/22/22 05/10/22 oxycodone 5 mg tablet 5 mg PO TID PRN pain 04/22/22 05/10/22 trazodone 100 mg tablet 100 mg PO BEDTIME 04/22/22 05/10/22 Previous Rx's Medication Instructions Recorded metoclopramide HCl 10 mg tablet 10 mg PO Q6H PRN nausea and 08/27/21 (Reglan) vomiting #14 tabs ondansetron 4 mg disintegrating 4 mg PO Q8H PRN nausea and 05/08/22 tablet vomiting #14 tabs promethazine 25 mg rectal 25 mg ID Q6H PRN nausea and 05/08/22 suppository vomiting #6 ea levothyroxine 75 mcg tablet 75 mcg PO DAILY@0600 #30 tabs 05/13/22 (Synthroid) pantoprazole 20 mg tablet,delayed 20 mg PO 0600 #30 tabs 05/13/22 release potassium chloride 20 mEq/15 mL 20 meq (15 mL) PO BIDWM #1,200 mL 05/13/22 oral liquid Allergies Allergy/AdvReac Type Severity Reaction Status Date / Time Sulfa (Sulfonamide Allergy Unknown Verified 04/24/22 11:00 Antibiotics) desipramine Allergy Rash Verified 04/24/22 11:00 Review of Systems Constitutional Constitutional: Reports system reviewed and no additional complaints, except as documented Cardiovascular Comments: No chest pain Respiratory Comments: No shortness of breath Gastrointestinal Comments: Nausea, no vomiting, feels like she is constipated Genitourinary Comments: Incontinent of urine Musculoskeletal Comments: Back pain Integumentary/Breasts Comments: No skin rashes Neurologic Comments: No pain radiating in her legs Hematologic/Lymphatic On Anticoagulants: No Patient History Medical History Bipolar disorder Eczema Hypertension Hypothyroidism (acquired) Surgical History Hx of cholecystectomy Family History Mother Alcohol abuse Father CVA (cerebral vascular accident) Social History household members: spouse Smoking Status: Never smoker alcohol intake: former Smoking Status: Never smoker alcohol intake frequency: 0-2 drinks per day Substance Use Type: does not use Exam Initial Vital Signs Initial Vital Signs: Vital Signs Temperature 98.4 F 12/19/22 16:42 Pulse Rate 143 H 12/19/22 16:42 Respiratory Rate 22 12/19/22 16:42 Blood Pressure 154/74 H 12/19/22 16:42 Pulse Oximetry 98 12/19/22 16:42 Oxygen Delivery Method Room Air 12/19/22 16:42 Const General: cooperative and No ill appearing HENMT Head: normal to inspection and normocephalic Resp Effort & Inspection: normal respiratory effort Auscultation: clear to auscultation bilaterally Cardio Rate: tachycardic Rhythm: regular rhythm GI Inspection: normal to inspection and non-distended Palpation: tender Back/Spine/Pelvis Thoracic/Lumbar Spine: paraspinal tenderness and lumbar spinal tenderness Sacroiliac Joints: tender to palpation Skin General: no rashes or lesions noted Neuro General: patient alert, patient awake and patient oriented x3 Speech: speech normal Extrem Other: No gross deformity Course Orders Ordered: ED Orders 12/19/22 18:57 XR abdomen 1V Stat 12/19/22 19:22 UA dip and micro [Urinalysis and Microscopic] Stat Urine Drug Screen, Rapid Stat 12/19/22 19:27 MR lumbar spine wo con Stat Discontinued Medications Hydrocodone Bitart/Acetaminophen (Hydrocodone/Acet 5/325 Prepack) 1 bottle MISC SEEINSTR ONE Stop: 12/19/22 22:17 Last Admin: 12/19/22 22:23 Dose: 1 bottle Documented By: THANH Hydromorphone HCl (Hydromorphone 1 Mg Inj) 1 mg IV NOW ONE Stop: 12/19/22 18:50 Last Admin: 12/19/22 18:53 Dose: 1 mg Documented By: THANH Lorazepam (Lorazepam 2 Mg/Ml Inj) 1 mg IV NOW ONE Stop: 12/19/22 19:58 Last Admin: 12/19/22 20:05 Dose: 1 mg Documented By: ZANDER Morphine Sulfate (Morphine 2 Mg/Ml Inj) 2 mg IV NOW ONE Stop: 12/19/22 17:06 Last Admin: 12/19/22 17:09 Dose: 2 mg Documented By: THANH Oxycodone HCl (Oxycodone Ir 5 Mg Tablet) 5 mg PO NOW ONE Stop: 12/19/22 19:32 Last Admin: 12/19/22 19:36 Dose: 5 mg Documented By: THANH Vital Signs Vital signs: Vital Signs - 8 hr 12/19/22 19:00 12/19/22 19:30 12/19/22 20:00 Pulse Rate 104 H 119 H 120 H Respiratory Rate 42 H 42 H 45 H Blood Pressure Pulse Oximetry 99 98 98 12/19/22 20:09 12/19/22 20:09 12/19/22 20:58 Pulse Rate 108 H 117 H Respiratory Rate 52 H Blood Pressure 141/69 H Pulse Oximetry 98 94 12/19/22 21:00 12/19/22 21:00 12/19/22 21:30 Pulse Rate 109 H Respiratory Rate Blood Pressure 154/67 H 134/61 Pulse Oximetry 91 12/19/22 21:30 12/19/22 22:00 12/19/22 22:00 Pulse Rate 99 H 95 H Respiratory Rate Blood Pressure 138/94 H Pulse Oximetry 94 96 MDM - Recheck/Abnormal Lab/Rx Medical Records Attestation: I reviewed the patient's medical records. Lab Data Attestation: I reviewed the patient's lab results. 12/19/22 16:56 12/19/22 16:56 Labs: Lab Results 12/19/22 12/19/22 12/19/22 Range/Units 16:56 16:56 16:56 WBC 16.9 H (4.5-11.0) X10^3/uL RBC 3.87 L (4.0-5.2) X10^6/uL Hgb 11.5 L (12.0-16.0) g/dL Hct 34.0 L (36-46) % MCV 87.9 (80-100) fL MCH 29.7 (26-34) PG MCHC 33.8 (30-36) % RDW 13.3 (11.6-14.8) % Plt Count 360 (150-400) X10^3/uL Neut % (Auto) 60.7 (50-75) % Lymph % (Auto) 30.4 (25-40) % [place] % (Auto) 4.1 (3-14) % Eos % (Auto) 3.7 (2-4) % Baso % (Auto) 1.1 (0-2) % Neut # (Auto) 08117 H (6821-6186) /uL Lymph # (Auto) 5100 H (5688-4116) /uL Woodruff # (Auto) 700 (0-900) /uL Eos # (Auto) 600 H (0-450) /uL Baso # (Auto) 200 H (0-100) /uL Sodium (137-145) mmol/L Potassium (3.4-5.1) mmol/L Chloride (98-107) mmol/L Carbon Dioxide (22-32) mmol/L BUN (7-17) mg/dL Creatinine (0.52-1.04) mg/dL Estimated GFR (>60) mL/min BUN/Creatinine Ratio (6-22) Glucose (80-110) mg/dL Calcium (8.4-10.2) mg/dL Total Bilirubin (0.2-1.3) mg/dL AST (14-36) IU/L ALT (<35) IU/L Alkaline Phosphatase (38-126) U/L Total Creatine Kinase (30-135) U/L Troponin I (0.01-0.034) ng/mL Total Protein (6.3-8.2) g/dL Albumin (3.5-5.0) g/dL Globulin (1.7-4.1) g/dL Albumin/Globulin Ratio (1.0-2.8) Lipase (23-300) U/L TSH 0.616 (0.47-4.68) uIU/mL Urine Color Urine Appearance Urine pH (4.5-8.0) Ur Specific [place] (1.000-1.035) Urine Protein (Negative) Urine Glucose (UA) (Negative) g/dL Urine Ketones (NEGATIVE) Urine Occult Blood (Negative) Urine Nitrate (Negative) Urine Bilirubin (NEGATIVE) Urine Urobilinogen (0.2) E.U./dL Ur Leukocyte Esterase (NEGATIVE) Urine RBC (0-5/HPF) Urine WBC (0-5/HPF) Ur Squamous Epith Cells (0-5/HPF) Urine Bacteria (None) Ur Culture Indicated? U Opiates 300ng/mL cut (Negative) Ur Oxycodone Screen (Negative) Urine Methadone Screen (Negative) Ur Barbiturates Screen (Negative) U Tricyclic Antidepress (Negative) Ur Phencyclidine Scrn (Negative) Ur Amphetamines Screen (Negative) U Methamphetamines Scrn (Negative) Ur MDMA Scrn (Ecstasy) (Negative) U Benzodiazepines Scrn (Negative) Urine Cocaine Screen (Negative) U Marijuana (THC) Screen (Negative) Ethyl Alcohol < 10 ( - 10) mg/dL 12/19/22 12/19/22 12/19/22 Range/Units 16:56 19:22 19:22 WBC (4.5-11.0) X10^3/uL RBC (4.0-5.2) X10^6/uL Hgb (12.0-16.0) g/dL Hct (36-46) % MCV (80-100) fL MCH (26-34) PG MCHC (30-36) % RDW (11.6-14.8) % Plt Count (150-400) X10^3/uL Neut % (Auto) (50-75) % Lymph % (Auto) (25-40) % Woodruff % (Auto) (3-14) % Eos % (Auto) (2-4) % Baso % (Auto) (0-2) % Neut # (Auto) (5905-7871) /uL Lymph # (Auto) (3228-1959) /uL Woodruff # (Auto) (0-900) /uL Eos # (Auto) (0-450) /uL Baso # (Auto) (0-100) /uL Sodium 137 (137-145) mmol/L Potassium 3.9 (3.4-5.1) mmol/L Chloride 106 (98-107) mmol/L Carbon Dioxide 20 L (22-32) mmol/L BUN 22 H (7-17) mg/dL Creatinine 1.12 H (0.52-1.04) mg/dL Estimated GFR 52 L (>60) mL/min BUN/Creatinine Ratio 19.6 (6-22) Glucose 125 H (80-110) mg/dL Calcium 9.4 (8.4-10.2) mg/dL Total Bilirubin 0.5 (0.2-1.3) mg/dL AST 32 (14-36) IU/L ALT 20 (<35) IU/L Alkaline Phosphatase 149 H (38-126) U/L Total Creatine Kinase 244 H (30-135) U/L Troponin I < 0.012 (0.01-0.034) ng/mL Total Protein 7.7 (6.3-8.2) g/dL Albumin 4.4 (3.5-5.0) g/dL Globulin 3.3 (1.7-4.1) g/dL Albumin/Globulin Ratio 1.3 (1.0-2.8) Lipase 56 (23-300) U/L TSH (0.47-4.68) uIU/mL Urine Color Yellow Urine Appearance Clear Urine pH 5.0 (4.5-8.0) Ur Specific [place] 1.010 (1.000-1.035) Urine Protein Negative (Negative) Urine Glucose (UA) Negative (Negative) g/dL Urine Ketones Negative (NEGATIVE) Urine Occult Blood Negative (Negative) Urine Nitrate Negative (Negative) Urine Bilirubin Negative (NEGATIVE) Urine Urobilinogen 0.2 (0.2) E.U./dL Ur Leukocyte Esterase Negative (NEGATIVE) Urine RBC None seen (0-5/HPF) Urine WBC None seen (0-5/HPF) Ur Squamous Epith Cells None seen (0-5/HPF) Urine Bacteria None seen (None) Ur Culture Indicated? Cult not indicated U Opiates 300ng/mL cut Positive H (Negative) Ur Oxycodone Screen Positive H (Negative) Urine Methadone Screen Negative (Negative) Ur Barbiturates Screen Negative (Negative) U Tricyclic Antidepress Positive H (Negative) Ur Phencyclidine Scrn Negative (Negative) Ur Amphetamines Screen Negative (Negative) U Methamphetamines Scrn Negative (Negative) Ur MDMA Scrn (Ecstasy) Negative (Negative) U Benzodiazepines Scrn Negative (Negative) Urine Cocaine Screen Negative (Negative) U Marijuana (THC) Screen Negative (Negative) Ethyl Alcohol ( - 10) mg/dL Urine Dip Bedside Urine Glucose Negative Bedside Urine Bilirubin - Negative Bedside Urine Ketone - Negative Urine Specific [place] 1.000 Bedside Urine Occult Blood - Negative Bedside Urine pH 7.0 Bedside Urine Protein - Negative Bedside Urine Urobilinogen - Negative Bedside Urine Nitrite - Negative Bedside Urine Leukocytes - Negative Esterase Imaging Data Chest x-ray: Radiologist's Impression: PROCEDURE:? XR CHEST 1V ? INDICATIONS:? chest pain ? TECHNIQUE:? One view of the chest was acquired.? ? COMPARISON:? [facility], , XR CHEST 1V, 03/06/2020, 18:16. ? FINDINGS:? ? Surgical changes and devices:? None.? ? Lungs and pleura:? Lungs are clear.? No pleural effusions or pneumothorax.? ? Mediastinum:? Mediastinal contours appear normal.? Heart size is normal.? ? Bones and chest wall:? No suspicious bony lesions.? Overlying soft tissues appear unremarkable.? ? IMPRESSION:? No acute cardiopulmonary process. Abdominal x-ray: Radiologist's Impression: PROCEDURE:? XR ABDOMEN 1V ? INDICATIONS:? constipation ? TECHNIQUE:? One view of the abdomen acquired.? ? COMPARISON:? None. ? FINDINGS:? ? Surgical changes and devices:? None.? ? Bowel:? Distended gas-filled loops of small bowel measure up to 3.6 cm.? Gas is seen throughout the colon.? Small volume of stool is seen. ? Soft tissues:? No suspicious abdominal calcifications.? Visualized solid organ contours appear normal in size.? ? Bones:? No suspicious bony lesions.? ? IMPRESSION:? Distended gas-filled loops of small bowel, findings may represent bowel obstruction or ileus. lumbar MRI: Radiologist's Impression: PROCEDURE:? MR LUMBAR SPINE WO CON ? INDICATIONS:? Low back pain, urinary retention ? TECHNIQUE:? Noncontrast sagittal T1 spin echo and T2 fast echo, sagittal STIR, and T2 fast spin echo through the lumbar spine.? In cases with scoliosis, additional coronal T2 fast spin echo may be performed.? ? COMPARISON:? None. ? FINDINGS:? Image quality:? Excellent.? ? Alignment and Curvature:? There is normal bony alignment.? ? Bone Marrow:? Marrow is of normal overall signal.? No fractures in the lumbar spine. No acute vertebral body compression fractures.? ? Spinal Cord:? Conus medullaris terminates at the L1 level.? Visualized cord demonstrates normal signal and size.? ? Paraspinous Soft Tissues:? No paravertebral masses.? ? T12-L1:? Normal appearance.? ? L1-L2:? Mild disk bulge. No spinal canal or neuroforaminal narrowing.? ? L2-L3:? Mild disk bulge. No spinal canal narrowing.? Mild neuroforaminal narrowing bilaterally. ? L3-L4:? Mild disk bulge and mild facet arthropathy. No spinal canal narrowing. There is mild bilateral neuroforaminal narrowing.? ? L4-L5:? Mild disk bulge. No spinal canal or neuroforaminal narrowing.? ? L5-S1:? Normal appearance.? ? ? IMPRESSION:? ? 1. Mild bilateral neuroforaminal narrowing at L2-L3 and L3-L4. ? 2. No high grade spinal canal narrowing. ECG Data Attestation: I personally reviewed and interpreted this ECG as follows: Interpretation: Sinus tachycardia Ventricular rate 102 Normal axis Normal QRS Normal QTC No ST T wave changes MDM Narrative Medical decision making narrative: Patient has chronic low back pain. Has an increasing her low back pain. She is been out of her pain medication throughout today. They have a new prescription for this but they have not picked it up from the pharmacy. She was given multi ple doses of pain medication but it was more of the Ativan that seemed to help her symptoms. She is no chest pain or shortness of breath. No overt signs of any infection. She does have generalized abdominal tenderness. Bladder scan does show that she is retaining urine. A Richards catheter was placed for this. Resulted in greater than 1 L of urine. She states that afterwards her abdominal pain has improved. The x-ray of her abdomen does show gas filled loops of bowel. I did consider obstruction however given the improvement of symptoms after the Richards catheter was placed, her soft abdomen, no vomiting and still passing gas I feel that an obstruction is unlikely and that we should hold on any abdominal radiologic studies. Patient states she does feel like she is constipated. Her x-ray could be consistent with constipation as well. She is not had a bowel movement in a couple days. She is at risk for being constipated given the amount of opioids she takes because of her back pain. We did discuss that she needs to be on a good bowel regimen to include stool softeners and laxatives. Because of the increase in lower back pain and also the urinary retention a MRI of the lumbar spine was ordered. Does not show any signs of cauda equina. Unsure as to why she is now retaining urine. It does not show there is any signs of a urinary tract infection. We will leave the Richards catheter in place and have her follow-up with Urology. There is no indication for antibiotics. 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 No indication for admission to the hospital. Patient was discharged home with return precautions. Discharge Plan Departure Patient Disposition: Home Clinical Impression: Back pain, Acute urinary retention, Constipation Instructions: DI for Constipation, How to Care for Your Richards Catheter -- Female, DI for Urinary Retention in Women Activity Restrictions/Additional Instructions: Continue to take all of your medications as directed and be sure that you fill the prescription for pain medication that you have tomorrow morning. Also recommend tomorrow you contact the urologist at the number provided below for a follow-up. I also recommend that you start on a good bowel regimen to include stool softeners and laxatives. Return to the emergency department for worsening symptoms. Prescriptions: No Action potassium chloride 20 mEq/15 mL Liquid 20 meq PO BIDWM Qty: 1200 0RF pantoprazole 20 mg Tablet,Delayed Release (Dr/Ec) 20 mg PO 0600 Qty: 30 0RF levothyroxine [Synthroid] 75 mcg Tablet 75 mcg PO DAILY@0600 Qty: 30 0RF amlodipine 10 mg Tablet 10 mg PO BEDTIME quetiapine 50 mg Tablet 50 mg PO BID quetiapine 300 mg Tablet 300 mg PO BEDTIME metoclopramide HCl [Reglan] 10 mg tablet 10 mg PO Q6H PRN (Reason: nausea and vomiting) Qty: 14 0RF atorvastatin 20 mg tablet 20 mg PO BEDTIME methocarbamol 500 mg Tablet 500 mg PO BID trazodone 100 mg Tablet 100 mg PO BEDTIME betamethasone dipropionate 0.05 % cream 0.05 applic topical BID Patient Comments: Apply topically 2 (two) times a day oxycodone 5 mg Tablet 5 mg PO TID PRN (Reason: pain) ondansetron 4 mg tablet,disintegrating 4 mg PO Q8H PRN (Reason: nausea and vomiting) Qty: 14 0RF promethazine 25 mg suppository 25 mg ID Q6H PRN (Reason: nausea and vomiting) Qty: 6 0RF Referrals: Dagmar Perdue ARNP [Primary Care Provider] - Miguel Dutton MD [Physician] - Stand Alone Forms: Patient Portal/API
--- NOTE | 2022-12-19 18:57 | DI.RAD.S_ITS ---
PROCEDURE: XR ABDOMEN 1V INDICATIONS: constipation TECHNIQUE: One view of the abdomen acquired. COMPARISON: None. FINDINGS: Surgical changes and devices: None. Bowel: Distended gas-filled loops of small bowel measure up to 3.6 cm. Gas is seen throughout the colon. Small volume of stool is seen. Soft tissues: No suspicious abdominal calcifications. Visualized solid organ contours appear normal in size. Bones: No suspicious bony lesions. IMPRESSION: Distended gas-filled loops of small bowel, findings may represent bowel obstruction or ileus. Dictated by: Dg Willett M.D. on 12/19/2022 at 19:51 Approved by: Dg Willett M.D. on 12/19/2022 at 19:53
--- NOTE | 2022-12-19 19:27 | DI.MRI.S_ITS ---
PROCEDURE: MR LUMBAR SPINE WO CON INDICATIONS: Low back pain, urinary retention TECHNIQUE: Noncontrast sagittal T1 spin echo and T2 fast echo, sagittal STIR, and T2 fast spin echo through the lumbar spine. In cases with scoliosis, additional coronal T2 fast spin echo may be performed. COMPARISON: None. FINDINGS: Image quality: Excellent. Alignment and Curvature: There is normal bony alignment. Bone Marrow: Marrow is of normal overall signal. No fractures in the lumbar spine. No acute vertebral body compression fractures. Spinal Cord: Conus medullaris terminates at the L1 level. Visualized cord demonstrates normal signal and size. Paraspinous Soft Tissues: No paravertebral masses. T12-L1: Normal appearance. L1-L2: Mild disk bulge. No spinal canal or neuroforaminal narrowing. L2-L3: Mild disk bulge. No spinal canal narrowing. Mild neuroforaminal narrowing bilaterally. L3-L4: Mild disk bulge and mild facet arthropathy. No spinal canal narrowing. There is mild bilateral neuroforaminal narrowing. L4-L5: Mild disk bulge. No spinal canal or neuroforaminal narrowing. L5-S1: Normal appearance. IMPRESSION: 1. Mild bilateral neuroforaminal narrowing at L2-L3 and L3-L4. 2. No high grade spinal canal narrowing. Dictated by: Dick Duarte M.D. on 12/19/2022 at 21:45 Approved by: Dick Duarte M.D. on 12/19/2022 at 21:57
[2022-12-19 19:33] LABS: Appearance Urine UA CLEAR; Bilirubin Urine UA NEGATIVE (NEGATIVE); Color Urine UA YELLOW; Glucose Urine UA NEGATIVE (Negative); Ketones Urine UA NEGATIVE (NEGATIVE); Leukocyte Esterase Urine UA NEGATIVE (NEGATIVE); Nitrite Urine UA NEGATIVE (Negative); Occult Blood Urine UA NEGATIVE (Negative); Protein Urine UA NEGATIVE (Negative); Urobilinogen Urine UA 0.2 E.U./dL (0.2)
[2022-12-19] MEDS: OXYCODONE IR 5 MG TABLET PO (19:36)
[2022-12-19 19:39] LABS: Bacteria Urine None Seen; Culture Indicated Urine Cult Not Indicated; RBC Urine None Seen (0-5/HPF); Squamous Epithelial Cell Urine None Seen (0-5/HPF); WBC Urine None Seen (0-5/HPF)
[2022-12-19 19:55] LABS: UR Morphine/Opiate cutoff 300 Positive (Negative); Ur Creatinine Normal (Normal); Ur Specific Gravity Normal (Normal); Urine Amphetamines Negative (Negative); Urine Barbiturates Negative (Negative); Urine Cocaine Negative (Negative); Urine MDMA Negative (Negative); Urine Methamphetamines Negative (Negative); Urine Phencyclidine Negative (Negative); Urine Tetrahydrocannabinol Negative (Negative); Urine pH Normal (Normal)
[2022-12-19 19:56] LABS: Urine Benzodiazepines Negative (Negative); Urine Methadone Negative (Negative); Urine Oxycodone Positive (Negative); Urine Tricyclic Antidepressant Positive (Negative)
[2022-12-19] MEDS: LORazepam 2 MG/ML INJ 1 MG IV (20:05)
[2022-12-19] MEDS: HYDROCODONE/ACET 5/325 PREPACK 1 BOTTLE MISC (22:23)
== END 2022-12-19 22:59 | disposition home or self-care (01) ==
PROVIDERS: Emergency Medicine; Emergency Provider Emergency Medicine; PCP Nurse Practitioner Family
DX: M54.50 Low back pain, unspecified (principal); R33.8 Other retention of urine; K59.00 Constipation, unspecified; R07.9 Chest pain, unspecified; R00.0 Tachycardia, unspecified
CPT/HCPCS: 36415; 51798; 71045; 72148; 74018; 80053; 80305; 80320; 81001; 81003; 82550; 83690; 84443; 84484; 85025; 93005; 96374; 96375; 99284; J1170; J2060; J2270

== ENCOUNTER 2022-12-26 15:30 | Emergency (ER) | payer MEDICARE, SELFPAY ==
[2022-12-26 15:35] VITALS: BP 137/84; PULSE 120; RESP 18; TEMP 37.1; O2SAT 99; BMI 25.0
[2022-12-26] MEDS: hydrOXYzine pamoate 25 MG CAPSULE 50 MG PO (17:22)
[2022-12-26] MEDS: OXYCODONE IR 5 MG TABLET PO (17:22)
--- NOTE | 2022-12-26 17:42 | ED.FEMALEGU ---
HPI - Female Genitourinary <Fabi Davis PA-C - Last Filed: 12/26/22 18:13> General Chief complaint: Urogenital-Female Stated complaint: catheter pain increasing Time Seen by Provider: 12/26/22 17:05 Source: patient Mode of arrival: Ambulatory History of Present Illness HPI Narrative: Patient is a 72-year-old female who presents with indwelling Richards catheter pain. She has chronic low back pain and presented to the emergency department on December 19 with back pain and urinary retention. An MRI was performed and mild bilateral neuroforaminal narrowing at L2-L3 and L3-L4 was identified. A Richards catheter was inserted at that time for urinary retention. She was referred to Urology for follow-up. She has not been able to schedule a follow-up appointment with Urology because their schedule is full and she presents today complaining of discomfort, unable to clean around the Richards site, states I wish I would in so much pain. She reports 10/10 pain in her vagina. She denies fever or chills. She normally takes 5 mg of oxycodone TID for her chronic pain but has not taken any today because she was in so much pain she had to leave her house emergently to come to the ER. Related Data Home Medications Medication Instructions Recorded Confirmed amlodipine 10 mg tablet 10 mg PO BEDTIME 03/06/20 05/10/22 quetiapine 50 mg tablet 50 mg PO BID 03/06/20 05/10/22 quetiapine 300 mg tablet 300 mg PO BEDTIME 07/13/21 05/10/22 atorvastatin 20 mg tablet 20 mg PO BEDTIME 04/22/22 05/10/22 betamethasone dipropionate 0.05 % 0.05 applic topical BID eczema 04/22/22 05/10/22 topical cream methocarbamol 500 mg tablet 500 mg PO BID 04/22/22 05/10/22 oxycodone 5 mg tablet 5 mg PO TID PRN pain 04/22/22 05/10/22 trazodone 100 mg tablet 100 mg PO BEDTIME 04/22/22 05/10/22 Previous Rx's Medication Instructions Recorded metoclopramide HCl 10 mg tablet 10 mg PO Q6H PRN nausea and 08/27/21 (Reglan) vomiting #14 tabs ondansetron 4 mg disintegrating 4 mg PO Q8H PRN nausea and 05/08/22 tablet vomiting #14 tabs promethazine 25 mg rectal 25 mg NJ Q6H PRN nausea and 05/08/22 suppository vomiting #6 ea levothyroxine 75 mcg tablet 75 mcg PO DAILY@0600 #30 tabs 05/13/22 (Synthroid) pantoprazole 20 mg tablet,delayed 20 mg PO 0600 #30 tabs 05/13/22 release potassium chloride 20 mEq/15 mL 20 meq (15 mL) PO BIDWM #1,200 mL 05/13/22 oral liquid Allergies Allergy/AdvReac Type Severity Reaction Status Date / Time Sulfa (Sulfonamide Allergy Unknown Verified 04/24/22 11:00 Antibiotics) desipramine Allergy Rash Verified 04/24/22 11:00 Review of Systems <Fabi Davis PA-C - Last Filed: 12/26/22 18:13> Review of Systems ROS Unobtainable: All systems reviewed & are unremarkable except as noted in HPI and below Patient History <Fabi Davis PA-C - Last Filed: 12/26/22 18:13> Medical History Bipolar disorder Eczema Hypertension Hypothyroidism (acquired) Surgical History Hx of cholecystectomy Family History Mother Alcohol abuse Father CVA (cerebral vascular accident) alcohol intake frequency: 0-2 drinks per day Substance Use Type: does not use Exam <Fabi Davis PA-C - Last Filed: 12/26/22 18:13> Narrative Exam Narrative: GENERAL: 72 year old patient appears stated age. Well-developed patient, labile affect, alternately screaming in pain and complimented care provider. NEURO: AOx3. HEAD: Atraumatic. Normocephalic. EYES: Pupils equal round and reactive. Extraocular motions intact. No scleral icterus. RESPIRATORY: No distress : Richards draining pale clear urine GROIN: External genitalia and catheter insertion site evaluated; No erythema, ulceration, bleeding at meatus, no purulent discharge. Exam chaperoned by RN. SKIN: No rash or erythema of visible areas Initial Vital Signs Initial Vital Signs: Vital Signs Temperature 98.7 F 12/26/22 15:35 Pulse Rate 120 H 12/26/22 15:35 Respiratory Rate 18 12/26/22 15:35 Blood Pressure 137/84 12/26/22 15:35 Pulse Oximetry 99 12/26/22 15:35 Oxygen Delivery Method Room Air 12/26/22 15:35 <Rohit Melendez DO - Last Filed: 12/28/22 17:08> Initial Vital Signs Initial Vital Signs: Vital Signs Temperature 98.7 F 12/26/22 15:35 Pulse Rate 120 H 12/26/22 15:35 Respiratory Rate 18 12/26/22 15:35 Blood Pressure 137/84 12/26/22 15:35 Pulse Oximetry 99 12/26/22 15:35 Oxygen Delivery Method Room Air 12/26/22 15:35 Course <Fabi Davis PA-C - Last Filed: 12/26/22 18:13> Orders Ordered: Discontinued Medications Hydroxyzine Pamoate (Hydroxyzine Pamoate 25 Mg Capsule) 50 mg PO NOW ONE Stop: 12/26/22 17:16 Last Admin: 12/26/22 17:22 Dose: 50 mg Documented By: THANH Oxycodone HCl (Oxycodone Ir 5 Mg Tablet) 5 mg PO NOW ONE Stop: 12/26/22 17:16 Last Admin: 12/26/22 17:22 Dose: 5 mg Documented By: THANH Vital Signs Vital signs: Vital Signs - 8 hr 12/26/22 15:35 Temperature 98.7 F Pulse Rate 120 H Respiratory Rate 18 Blood Pressure 137/84 Pulse Oximetry 99 Oxygen Delivery Method Room Air <Rohit Melendez DO - Last Filed: 12/28/22 17:08> Orders Ordered: Discontinued Medications Hydroxyzine Pamoate (Hydroxyzine Pamoate 25 Mg Capsule) 50 mg PO NOW ONE Stop: 12/26/22 17:16 Last Admin: 12/26/22 17:22 Dose: 50 mg Documented By: THANH Oxycodone HCl (Oxycodone Ir 5 Mg Tablet) 5 mg PO NOW ONE Stop: 12/26/22 17:16 Last Admin: 12/26/22 17:22 Dose: 5 mg Documented By: DKB Vital Signs Vital signs: Vital Signs - 8 hr 12/26/22 15:35 Temperature 98.7 F Pulse Rate 120 H Respiratory Rate 18 Blood Pressure 137/84 Pulse Oximetry 99 Oxygen Delivery Method Room Air MDM - Female Genitourinary <Fabi Davis PA-C - Last Filed: 12/26/22 18:13> [facility] Narrative Medical decision making narrative: Multiple etiologies for patient's symptoms considered including, but not limited to: UTI, mechanical irritation from indwelling Richards catheter, infection. Patient given 5 mg oxycodone and hydroxyzine during ER stay for pain and intense anxiety. She reports improvement in her pain and anxiety after this medication. Doubt UTI as patient is draining clear urine, has no fever or chills, no CVA tenderness, no suprapubic tenderness and Richards is only been in for 1 week. Exam of insertion site a Richards catheter and external genitalia without any obvious source of pain. Shared decision making conversation with patient regarding her request to remove Richards catheter; she strongly requests removal because she is so uncomfortable and she feels like she should just if she continues to have a catheter. I provided education on the risks of removing the catheter, including urinary retention and eating the catheter replaced. She is willing to accept these risks and would like to proceed with removal of the catheter. Catheter removed and patient discharged. Patient's symptoms improved over duration of stay with above-stated therapies. Findings and discharge diagnosis discussed with patient/family followed by verbalization of understanding Return precautions discussed with patient/family whom verbalize understanding of diagnosis and plan Discharge Plan Departure Patient Disposition: Home Clinical Impression: Urethral catheter mechanical complication Instructions: DI for Urinary Retention in Women Activity Restrictions/Additional Instructions: *You have been diagnosed with mechanical irritation from indwelling Richards catheter. Per your request, we have removed your Richards catheter. It is possible that you will be able to urinate normally after this, but it is also possible that you will have difficulty urinating and need to return to the emergency department. *What to do: *Please continue to take your regular medications as directed. [ ] New medication prescriptions sent to your pharmacy: [ ] [ ] New medication written as a paper prescription [X] No new medications given *Please follow up with your primary care provider in 2-3 days, call for an appointment. Let them know you were seen in the Emergency Department and that we ask that you be seen in follow up. We will electronically transmit a record of today's note if your PCP is in our system *If you do not have a primary care provider please contact the [facility] Resource line at [phone]. They will ask some questions about your medical history and help get you set up with a doctor in the community. *Return to Emergency Department if you should have any new, worsening or concerning symptoms, such as [fever greater than 101 F, shaking chills, worsening pain, persistent vomiting or other bothersome symptoms] Prescriptions: No Action potassium chloride 20 mEq/15 mL Liquid 20 meq PO BIDWM Qty: 1200 0RF pantoprazole 20 mg Tablet,Delayed Release (Dr/Ec) 20 mg PO 0600 Qty: 30 0RF levothyroxine [Synthroid] 75 mcg Tablet 75 mcg PO DAILY@0600 Qty: 30 0RF amlodipine 10 mg Tablet 10 mg PO BEDTIME quetiapine 50 mg Tablet 50 mg PO BID quetiapine 300 mg Tablet 300 mg PO BEDTIME metoclopramide HCl [Reglan] 10 mg tablet 10 mg PO Q6H PRN (Reason: nausea and vomiting) Qty: 14 0RF atorvastatin 20 mg tablet 20 mg PO BEDTIME methocarbamol 500 mg Tablet 500 mg PO BID trazodone 100 mg Tablet 100 mg PO BEDTIME betamethasone dipropionate 0.05 % cream 0.05 applic topical BID Patient Comments: Apply topically 2 (two) times a day oxycodone 5 mg Tablet 5 mg PO TID PRN (Reason: pain) ondansetron 4 mg tablet,disintegrating 4 mg PO Q8H PRN (Reason: nausea and vomiting) Qty: 14 0RF promethazine 25 mg suppository 25 mg NJ Q6H PRN (Reason: nausea and vomiting) Qty: 6 0RF Referrals: Dagmar Perdue ARNP [Primary Care Provider] - Stand Alone Forms: Patient Portal/API <Rohit Melendez DO - Last Filed: 12/28/22 17:08> Cosign ED Attending Lindsey Attestation: I was immediately available in the department for consultation. Documentation has been reviewed. I agree with assessment and plan.
[2022-12-26 18:13] VITALS: BP 132/64; PULSE 94; RESP 18; O2SAT 99
== END 2022-12-26 18:22 | disposition home or self-care (01) ==
PROVIDERS: Emergency Provider Physician Assistant; PCP Nurse Practitioner Family
DX: T83.098A Other mechanical complication of other urinary catheter, initial encounter (principal)
CPT/HCPCS: 99283

== ENCOUNTER 2023-03-01 14:41 | Emergency (ER) | payer MEDICARE, SELFPAY ==
[2023-03-01 14:42] VITALS: BP 152/76; PULSE 122; RESP 22; TEMP 37.1; O2SAT 95; BMI 28.3
--- NOTE | 2023-03-01 14:46 | DI.CT.S_ITS ---
PROCEDURE: CT LUMBAR SPINE WO CON INDICATIONS: fall, pain TECHNIQUE: Noncontrast 3 mm thick sections acquired from the T12 level to the sacrum. Sagittal and coronal reformats were constructed. For radiation dose reduction, the following was used: automated exposure control. COMPARISON: [facility], CT, CT CHEST ABD PEL W CON, 03/08/2020, 8:22. [facility], CT, CT HEAD/BRAIN WO CON, 03/01/2023, 15:11. [facility], MR, MR LUMBAR SPINE WO CON, 12/19/2022, 20:36. FINDINGS: Image quality: Excellent. Bones: There is normal bony alignment. No acute vertebral body compression fractures. No suspicious lytic or blastic bony lesions. No pars defects. This patient has transitional lumbar anatomy. For the purposes of this examination, the level with the last pair of ribs is considered to be T12. (On the CT dated 03/08/2020, this patient has shown to have 12 pairs of ribs.) By this numbering scheme, the L5 level is transitional and is highly sacralized on the right. T12-L1: Normal. L1-L2: Normal. L2-L3: The disc height is well preserved. Mild to moderate disc bulge is seen, with a central disc protrusion. Mild bilateral neural foraminal narrowing is seen. Mild central canal narrowing is seen. L3-L4: The disc height is well preserved. Moderate disc bulge is seen, with a central disc protrusion. Moderate facet hypertrophy is seen, right worse than left. Mac VIII foraminal mac VIII central L4-L5: The disc height is well preserved. Mild to moderate disc bulge is seen, with a central disc protrusion. Moderate facet joint hypertrophy is seen. There is moderate right-sided and at least moderate left-sided neural foraminal narrowing. Moderate central canal narrowing is seen. L5-S1: There is a rudimentary, transitional disc at this level. Soft tissues: No retroperitoneal masses or hematomas. Visualized aorta is normal in caliber. Atherosclerotic calcification is noted. IMPRESSION: Negative for acute fracture. Degenerative changes are seen, which are worst inferiorly. 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 (Please note that this numbering scheme differs by 1 level from the numbering scheme on the recent prior lumbar MRI report dated 12/09/2022.) Dictated by: Zac Ch M.D. on 03/01/2023 at 14:28 Approved by: Zac Ch M.D. on 03/01/2023 at 14:35
--- NOTE | 2023-03-01 14:49 | DI.CT.S_ITS ---
PROCEDURE: CT HEAD/BRAIN WO CON INDICATIONS: altered, fall TECHNIQUE: Noncontrast 4.5 mm thick angled axial sections acquired from the foramen magnum to the vertex, with coronal and sagittal reformats. For radiation dose reduction, the following was used: automated exposure control, adjustment of mA and/or kV according to patient size. COMPARISON: [facility], CT, CT HEAD/BRAIN WO CON, 03/08/2020, 8:22. [facility], CT, CT LUMBAR SPINE WO CON, 03/01/2023, 15:11. [facility], CT, CT HEAD/BRAIN WO CON, 07/21/2021, 1:56. FINDINGS: Image quality: This examination is limited by involuntary motion artifact. Mild streak artifact can be seen through the skull base. CSF spaces: Basal cisterns are patent. No extra-axial fluid collections. The ventricles are symmetric in size and shape. Brain: No intracranial bleeds or masses. There is cerebral volume loss for age, with resultant ventricular and sulcal prominence. There are periventricular and deep white matter chronic small vessel ischemic changes. There is intracranial internal carotid artery atherosclerosis. Skull and face: Calvarium and visualized facial bones appear intact, without suspicious lesions. Sinuses: Visualized sinuses and mastoids are clear. IMPRESSION: No acute intracranial hemorrhage is seen. No acute intracranial process is seen. Dictated by: Zac Ch M.D. on 03/01/2023 at 14:26 Approved by: Zac Ch M.D. on 03/01/2023 at 14:27
[2023-03-01 15:10] LABS: Add Manual Diff / Slide Review NO; Basophils Absolute Auto 100 /uL (0-100); Basophils Percent Auto 0.5 % (0-2); Eosinophils Absolute Auto 200 /uL (0-450); Eosinophils Percent Auto 1.9 % (2-4); Hematocrit 30.8 % (36-46); Hemoglobin 10.6 g/dL (12.0-16.0); Lymphocytes Absolute Auto 2400 /uL (1100-4500); Mean Corpuscular HGB Conc 34.3 % (30-36); Mean Corpuscular Hemoglobin 29.5 PG (26-34); Mean Corpuscular Volume 86.2 fL (80-100); Monocytes Absolute Auto 900 /uL (0-900); Monocytes Percent Auto 8.3 % (3-14); Neutrophils Absolute Auto 7500 /uL (1500-7000); Neutrophils Percent Auto 67.3 % (50-75); Platelet Count 368 X10^3/uL (150-400); Red Blood Cell Count 3.58 X10^6/uL (4.0-5.2); White Blood Cell Count 11.1 X10^3/uL (4.5-11.0)
--- NOTE | 2023-03-01 15:10 | ED_ITS ---
HPI - Altered Mental Status General Chief Complaint: Altered Mental Status Stated Complaint: AMS, Fall T-3 Time Seen by Provider: 03/01/23 14:46 Source: patient and EMS Mode of arrival: EMS History of Present Illness HPI narrative: 72-year-old female nonsmoker with history of hypertension and hyperlipidemia as well as prior episodes of electrolyte abnormalities including hypomagnesemia, hypokalemia, hyponatremia presents by EMS for evaluation of altered mental status. Patient lives in a home with other persons who state they feel like she might be acting other than her baseline. She reports that she has had episodes of body shaking and that on occasion her legs give out on her, this did happen a day or 2 ago and she fell and struck her head and has not been evaluated. She does not take blood thinners. She is had no fever or chills, no blurred vision or trouble with speech. She states she is been taking her medications as directed and denies any missed doses. Patient is brought by EMS who has seen her on multiple occasions and state that she is at her baseline, additionally nursing staff and myself have seen patient before and she is awake, alert and oriented at her baseline Related Data Home Medications Medication Instructions Recorded Confirmed amlodipine 10 mg tablet 10 mg PO BEDTIME 03/06/20 05/10/22 quetiapine 50 mg tablet 50 mg PO BID 03/06/20 05/10/22 quetiapine 300 mg tablet 300 mg PO BEDTIME 07/13/21 05/10/22 atorvastatin 20 mg tablet 20 mg PO BEDTIME 04/22/22 05/10/22 betamethasone dipropionate 0.05 % 0.05 applic topical BID eczema 04/22/22 05/10/22 topical cream methocarbamol 500 mg tablet 500 mg PO BID 04/22/22 05/10/22 oxycodone 5 mg tablet 5 mg PO TID PRN pain 04/22/22 05/10/22 trazodone 100 mg tablet 100 mg PO BEDTIME 04/22/22 05/10/22 Previous Rx's Medication Instructions Recorded metoclopramide HCl 10 mg tablet 10 mg PO Q6H PRN nausea and 08/27/21 (Reglan) vomiting #14 tabs ondansetron 4 mg disintegrating 4 mg PO Q8H PRN nausea and 05/08/22 tablet vomiting #14 tabs promethazine 25 mg rectal 25 mg VA Q6H PRN nausea and 05/08/22 suppository vomiting #6 ea levothyroxine 75 mcg tablet 75 mcg PO DAILY@0600 #30 tabs 05/13/22 (Synthroid) pantoprazole 20 mg tablet,delayed 20 mg PO 0600 #30 tabs 05/13/22 release potassium chloride 20 mEq/15 mL 20 meq (15 mL) PO BIDWM #1,200 mL 05/13/22 oral liquid Allergies Allergy/AdvReac Type Severity Reaction Status Date / Time Sulfa (Sulfonamide Allergy Unknown Verified 04/24/22 11:00 Antibiotics) desipramine Allergy Rash Verified 04/24/22 11:00 Review of Systems Review of Systems Narrative: GENERAL: See HPI HEENT: Denies sinus pain, ear pain, sore throat, difficulty swallowing, dizziness. RESPIRATORY: Denies dyspnea, cough, wheezing, hemoptysis, sputum. CARDIOVASCULAR: Denies chest pain, palpitations, orthopnea, edema, GASTROINTESTINAL: Denies nausea, vomiting, abdominal pain, diarrhea, constipation, melena. : Denies dysuria, frequency, incontinence, hematuria, urinary retention. MUSCULOSKELETAL: See HPI SKIN: Denies rash, skin lesions, or other NEUROLOGIC: Denies weakness, headache, numbness, change in speech, confusion, seizures, incoordination. PSYCHIATRIC: No concerning psychosocial issues. 12 point review of systems is negative except for those stated above Patient History Medical History Eczema Hypothyroidism (acquired) Bipolar disorder Hypertension Surgical History Hx of cholecystectomy Family History Mother Alcohol abuse Father CVA (cerebral vascular accident) Social History household members: spouse Smoking Status: Never smoker alcohol intake: former Smoking Status: Never smoker alcohol intake frequency: 0-2 drinks per day Substance Use Type: does not use Exam Narrative Exam Narrative: GENERAL: [72] year old patient appears stated age. Well-developed patient, in mild distress., anxious, GCS 15 HEAD: Atraumatic. Normocephalic. EYES: Pupils equal round and reactive. Extraocular motions intact. No scleral icterus. No injection or drainage. ENT: Nose without bleeding, purulent drainage. Throat without erythema, tonsillar hypertrophy or exudate. Airway patent. NECK: Trachea midline. Non tender CARDIOVASCULAR: Regular rate and rhythm without murmurs, gallops, or rubs. RESPIRATORY: Clear to auscultation. Breath sounds equal bilaterally. No wheezes, rales, or rhonchi. GASTROINTESTINAL: Abdomen soft, non-tender, nondistended. EXTREMITIES: No edema or joint tenderness. BACK: Nontender without deformity or crepitance. No flank tenderness. NEURO: AOx3. SKIN: No rash or erythema of visible areas Initial Vital Signs Initial Vital Signs: Vital Signs Temperature 98.7 F 03/01/23 14:42 Pulse Rate 122 H 03/01/23 14:42 Respiratory Rate 22 03/01/23 14:42 Blood Pressure 152/76 H 03/01/23 14:42 Pulse Oximetry 95 03/01/23 14:42 Oxygen Delivery Method Room Air 03/01/23 14:42 Course Orders Ordered: ED Orders 03/01/23 14:46 CT lumbar spine wo con Stat 03/01/23 14:49 CT head/brain wo con Stat 03/01/23 15:04 Acetaminophen Stat Complete Blood Count AUTO DIFF Stat Comprehensive Metabolic Panel Stat Ethanol (ETOH) Stat Salicylate Stat Vital Signs Vital signs: Vital Signs - 8 hr 03/01/23 14:42 03/01/23 16:52 Temperature 98.7 F Pulse Rate 122 H 87 Respiratory Rate 22 Blood Pressure 152/76 H Pulse Oximetry 95 Oxygen Delivery Method Room Air MDM - Altered Mental Status Lab Data 03/01/23 15:04 03/01/23 15:04 Labs: Lab Results 03/01/23 03/01/23 Range/Units 01:03 15:04 WBC 11.1 H (4.5-11.0) X10^3/uL RBC 3.58 L (4.0-5.2) X10^6/uL Hgb 10.6 L (12.0-16.0) g/dL Hct 30.8 L (36-46) % MCV 86.2 (80-100) fL MCH 29.5 (26-34) PG MCHC 34.3 (30-36) % RDW 14.0 (11.6-14.8) % Plt Count 368 (150-400) X10^3/uL Neut % (Auto) 67.3 (50-75) % Lymph % (Auto) 22.0 L (25-40) % Garza % (Auto) 8.3 (3-14) % Eos % (Auto) 1.9 L (2-4) % Baso % (Auto) 0.5 (0-2) % Neut # (Auto) 7500 H (9171-2920) /uL Lymph # (Auto) 2400 (4872-7676) /uL Garza # (Auto) 900 (0-900) /uL Eos # (Auto) 200 (0-450) /uL Baso # (Auto) 100 (0-100) /uL Sodium 141 (137-145) mmol/L Potassium 3.7 (3.4-5.1) mmol/L Chloride 108 H (98-107) mmol/L Carbon Dioxide 23 (22-32) mmol/L BUN 15 (7-17) mg/dL Creatinine 0.96 (0.52-1.04) mg/dL Estimated GFR > 60 (>60) mL/min BUN/Creatinine Ratio 15.6 (6-22) Glucose 139 H (80-110) mg/dL Calcium 9.9 (8.4-10.2) mg/dL Total Bilirubin 0.1 L (0.2-1.3) mg/dL AST 24 (14-36) IU/L ALT 20 (<35) IU/L Alkaline Phosphatase 158 H (38-126) U/L Total Protein 7.2 (6.3-8.2) g/dL Albumin 3.9 (3.5-5.0) g/dL Globulin 3.3 (1.7-4.1) g/dL Albumin/Globulin Ratio 1.2 (1.0-2.8) Salicylates 3.1 (<20) mg/dL U Opiates 300ng/mL cut Negative (Negative) Ur Oxycodone Screen Positive H (Negative) Urine Methadone Screen Negative (Negative) Acetaminophen < 10 (10-30) ug/mL Ur Barbiturates Screen Negative (Negative) U Tricyclic Antidepress Positive H (Negative) Ur Phencyclidine Scrn Negative (Negative) Ur Amphetamines Screen Negative (Negative) U Methamphetamines Scrn Negative (Negative) Ur MDMA Scrn (Ecstasy) Negative (Negative) U Benzodiazepines Scrn Negative (Negative) Urine Cocaine Screen Negative (Negative) U Marijuana (THC) Screen Negative (Negative) Ethyl Alcohol < 10 ( - 10) mg/dL Urine Dip Bedside Urine Glucose Negative Bedside Urine Bilirubin - Negative Bedside Urine Ketone - Negative Urine Specific [place] 1.010 Bedside Urine Occult Blood - Negative Bedside Urine pH 6.0 Bedside Urine Protein - Negative Bedside Urine Urobilinogen - Negative Bedside Urine Nitrite - Negative Bedside Urine Leukocytes - Negative Esterase MDM Narrative Medical decision making narrative: [72] year old patient presents with fall, possible head injury Multiple etiologies for patient's symptoms considered including, but not limited to: [Concussion versus intracranial hemorrhage versus lumbar fracture versus electrolyte abnormality versus other] Prior Charts reviewed in our EMR Primary Historian: patient Labs reviewed and interpreted by myself: No significant abnormalities that would require specific or immediate intervention Imaging reviewed: Head CT and lumbar CT without acute findings Patient's history and physical exam are reassuring. She is ambulatory in the department clearly anxious but not suicidal or homicidal. Labs unremarkable and no electrolyte abnormalities requiring intervention, no signs of anemia or infectious process. Patient appropriate for discharge. Findings and discharge diagnosis discussed with patient/family followed by verbalization of understanding Return precautions discussed with patient/family whom verbalize understanding of diagnosis and plan Discharge Plan Departure Patient Disposition: Home Clinical Impression: Feared complaint without diagnosis, Back pain Instructions: Low Back Pain Activity Restrictions/Additional Instructions: *You have been diagnosed with [low back pain and possible head injury. As we discussed your history and physical exam as well as labs and imaging are reassuring. There is no evidence of abnormal electrolytes, infection, anemia nor fracture] *What to do: *Please continue to take your regular medications as directed. [ ] New medication prescriptions sent to your pharmacy: [ ] [ ] New medication written as a paper prescription [ ] No new medications given *Please follow up with your primary care provider in 2-3 days, call for an appointment. Let them know you were seen in the Emergency Department and that we ask that you be seen in follow up. We will electronically transmit a record of today's note if your PCP is in our system *If you do not have a primary care provider please contact the [facility] Resource line at [phone]. They will ask some questions about your medical history and help get you set up with a doctor in the community. *Return to Emergency Department if you should have any new, worsening or concerning symptoms, such as [fever greater than 101 F, shaking chills, worsening pain, persistent vomiting or other bothersome symptoms] Prescriptions: No Action potassium chloride 20 mEq/15 mL Liquid 20 meq PO BIDWM Qty: 1200 0RF pantoprazole 20 mg Tablet,Delayed Release (Dr/Ec) 20 mg PO 0600 Qty: 30 0RF levothyroxine [Synthroid] 75 mcg Tablet 75 mcg PO DAILY@0600 Qty: 30 0RF amlodipine 10 mg Tablet 10 mg PO BEDTIME quetiapine 50 mg Tablet 50 mg PO BID quetiapine 300 mg Tablet 300 mg PO BEDTIME metoclopramide HCl [Reglan] 10 mg tablet 10 mg PO Q6H PRN (Reason: nausea and vomiting) Qty: 14 0RF atorvastatin 20 mg tablet 20 mg PO BEDTIME methocarbamol 500 mg Tablet 500 mg PO BID trazodone 100 mg Tablet 100 mg PO BEDTIME betamethasone dipropionate 0.05 % cream 0.05 applic topical BID Patient Comments: Apply topically 2 (two) times a day oxycodone 5 mg Tablet 5 mg PO TID PRN (Reason: pain) ondansetron 4 mg tablet,disintegrating 4 mg PO Q8H PRN (Reason: nausea and vomiting) Qty: 14 0RF promethazine 25 mg suppository 25 mg VA Q6H PRN (Reason: nausea and vomiting) Qty: 6 0RF Referrals: Dagmar Perdue ARNP [Primary Care Provider] - Stand Alone Forms: Patient Portal/API
--- NOTE | 2023-03-01 15:18 | PC.NURSE ---
EMS stated that pt was able to walk after fall. Pt ambulated to stretcher.
[2023-03-01 15:19] LABS: UR Morphine/Opiate cutoff 300 Negative (Negative); Ur Creatinine Normal (Normal); Ur Specific Gravity Normal (Normal); Urine Amphetamines Negative (Negative); Urine Barbiturates Negative (Negative); Urine Benzodiazepines Negative (Negative); Urine Cocaine Negative (Negative); Urine MDMA Negative (Negative); Urine Methadone Negative (Negative); Urine Methamphetamines Negative (Negative); Urine Oxycodone Positive (Negative); Urine Phencyclidine Negative (Negative); Urine Tetrahydrocannabinol Negative (Negative); Urine Tricyclic Antidepressant Positive (Negative); Urine pH Normal (Normal)
[2023-03-01 15:21] LABS: Alanine Aminotransferase 20 IU/L (<35); Albumin 3.9 g/dL (3.5-5.0); Albumin Globulin Ratio 1.2 (1.0-2.8); Alkaline Phosphatase 158 U/L (38-126); Aspartate Aminotransferase 24 IU/L (14-36); BUN Creatinine Ratio 15.6 (6-22); Bilirubin Total 0.1 mg/dL (0.2-1.3); Blood Urea Nitrogen 15 mg/dL (7-17); Calcium 9.9 mg/dL (8.4-10.2); Carbon Dioxide 23 mmol/L (22-32); Chloride 108 mmol/L (98-107); Estimated Glomerular Filt Rate > 60 mL/min (>60); Globulin 3.3 g/dL (1.7-4.1); Glucose 139 mg/dL (80-110); HEMOLYSIS < 15 (0-50); Potassium 3.7 mmol/L (3.4-5.1); Sodium 141 mmol/L (137-145); Total Protein 7.2 g/dL (6.3-8.2)
[2023-03-01 15:22] LABS: Acetaminophen < 10 ug/mL (10-30); Ethanol (ETOH) < 10 mg/dL; Salicylate 3.1 mg/dL (<20)
[2023-03-01 16:52] VITALS: PULSE 87
== END 2023-03-01 16:59 | disposition home or self-care (01) ==
PROVIDERS: Emergency Provider Emergency Medicine; PCP Nurse Practitioner Family
DX: M54.9 Dorsalgia, unspecified (principal); W18.30XA Fall on same level, unspecified, initial encounter; Z79.899 Other long term (current) drug therapy
CPT/HCPCS: 36415; 70450; 72131; 80053; 80305; 80320; 80329; 81003; 85025; 99284; G0480

== ENCOUNTER 2023-06-13 17:41 | Inpatient (IN) | payer MEDICARE, SELFPAY ==
[2023-06-13] VITALS (15 sets, daily range): BP systolic 98–170; BP diastolic 55–93; PULSE 77–109; RESP 12–46; TEMP 36.2–36.8; O2SAT 91–100; BMI 27.4
--- NOTE | 2023-06-13 17:46 | DI.CT.S_ITS ---
PROCEDURE: CT HEAD/BRAIN WO CON INDICATIONS: Altered mental status TECHNIQUE: Noncontrast 4.5 mm thick angled axial sections acquired from the foramen magnum to the vertex, with coronal and sagittal reformats. For radiation dose reduction, the following was used: automated exposure control, adjustment of mA and/or kV according to patient size. COMPARISON: [facility], CT, CT HEAD/BRAIN WO CON, 03/01/2023, 15:11. FINDINGS: Image quality: Diagnostic. CSF spaces: Basal cisterns are patent. No extra-axial fluid collections. The ventricles are symmetric in size and shape. Brain: No intracranial bleeds or masses. There is cerebral volume loss for age, with resultant ventricular and sulcal prominence. There are periventricular and deep white matter chronic small vessel ischemic changes. There is intracranial internal carotid artery atherosclerosis. Skull and face: Calvarium and visualized facial bones appear intact, without suspicious lesions. Sinuses: Visualized sinuses and mastoids are clear. IMPRESSION: No acute intracranial pathology. Dictated by: Grabiel Soriano M.D. on 06/13/2023 at 19:55 Approved by: Grabiel Soriano M.D. on 06/13/2023 at 19:56
[2023-06-13] MEDS: SODIUM CHLORIDE 0.9% 1,000 ML 1000 ML IV (18:10)
[2023-06-13 18:11] LABS: Add Manual Diff / Slide Review NO; Basophils Absolute Auto 200 /uL (0-100); Basophils Percent Auto 0.8 % (0-2); Eosinophils Absolute Auto 0 /uL (0-450); Eosinophils Percent Auto 0.1 % (2-4); Hematocrit 36.2 % (36-46); Hemoglobin 12.1 g/dL (12.0-16.0); Lymphocytes Absolute Auto 3700 /uL (1100-4500); Lymphocytes Percent Auto 15.9 % (25-40); Mean Corpuscular HGB Conc 33.5 % (30-36); Mean Corpuscular Volume 86.6 fL (80-100); Monocytes Absolute Auto 1700 /uL (0-900); Monocytes Percent Auto 7.1 % (3-14); Neutrophils Absolute Auto 17900 /uL (1500-7000); Neutrophils Percent Auto 76.1 % (50-75); Platelet Count 442 X10^3/uL (150-400); Red Blood Cell Count 4.18 X10^6/uL (4.0-5.2); Red Cell Distribution Width 13.9 % (11.6-14.8); White Blood Cell Count 23.5 X10^3/uL (4.5-11.0)
--- NOTE | 2023-06-13 18:12 | PC.NURSE ---
Patient has ortho shoe on right foot, surgery two days ago. CMS intact. Patient has not been eating, drinking or sleeping well for last several days per spouse. Patient has been wandering with walker around home today. Has urinated. Not able to carry on conversations. Patient answers yes or no to most questions.
--- NOTE | 2023-06-13 18:19 | ED.GENADULT ---
HPI - General Adult General Chief complaint: Altered Mental Status Stated complaint: Altered mental status Time Seen by Provider: 06/13/23 17:45 Source: family () and EMS Mode of arrival: EMS History of Present Illness HPI narrative: Patient is a 73-year-old female who arrives by EMS. Her is at bedside. Per report from EMS and the patient's she has been altered for approximately 24 hours. Approximately 2 days ago she underwent a surgery to her right foot at an outside facility. This appears to have been in orthopedics/podiatry surgery. states that she has had issues with anesthesia in the past being somewhat confused afterwards but he thought that after the surgery she seemed to be doing okay. Approximately 24 hours later (which was 24 hours prior to this visit) he stated that the patient started to not act normal. He thought that it was just because of the surgery and that she would improve. She seemed to sleep well last evening but this morning when she woke up she once again was not acting normal. He stated that she was up walking around but did not seem to be doing anything appropriate. She was somewhat wandering around the house. He stated that she ate some breakfast this morning but has not had anything to eat or drink since that time. He denies any specific trauma. He does state that she has not had any of her medications for the past several days. He stated that he just ?forgot? give them to her. These medications include Seroquel and amlodipine and levothyroxine. Patient is unable to provide any HPI given her current clinical status. Related Data Home Medications Medication Instructions Recorded Confirmed amlodipine 10 mg tablet 10 mg PO BEDTIME 03/06/20 06/13/23 quetiapine 300 mg tablet 300 mg PO BEDTIME 07/13/21 06/13/23 atorvastatin 20 mg tablet 20 mg PO BEDTIME 04/22/22 06/13/23 betamethasone dipropionate 0.05 % 0.05 applic topical BID eczema 04/22/22 06/13/23 topical cream oxycodone 5 mg tablet 5 mg PO TID PRN pain 04/22/22 06/13/23 Calcium 500 1 tab PO BEDTIME 06/13/23 06/13/23 lorazepam 1 mg tablet 0.5 mg PO 3XD 06/13/23 06/13/23 Previous Rx's Medication Instructions Recorded metoclopramide HCl 10 mg tablet 10 mg PO Q6H PRN nausea and 08/27/21 (Reglan) vomiting #14 tabs ondansetron 4 mg disintegrating 4 mg PO Q8H PRN nausea and 05/08/22 tablet vomiting #14 tabs levothyroxine 75 mcg tablet 75 mcg PO DAILY@0600 #30 tabs 05/13/22 (Synthroid) Allergies Allergy/AdvReac Type Severity Reaction Status Date / Time Sulfa (Sulfonamide Allergy Unknown Verified 06/13/23 18:05 Antibiotics) desipramine Allergy Rash Verified 06/13/23 18:05 Review of Systems Review of Systems ROS Unobtainable: Unobtainable due to mental condition Patient History Medical History Eczema Hypothyroidism (acquired) Bipolar disorder Hypertension Surgical History Hx of cholecystectomy Family History Mother Alcohol abuse Father CVA (cerebral vascular accident) Social History household members: spouse Smoking Status: Never smoker alcohol intake: former Smoking Status: Never smoker alcohol intake frequency: 0-2 drinks per day Substance Use Type: does not use Exam Initial Vital Signs Initial Vital Signs: Vital Signs Temperature 98.3 F 06/13/23 17:32 Pulse Rate 103 H 06/13/23 17:32 Respiratory Rate 40 H 06/13/23 17:32 Blood Pressure 170/93 H 06/13/23 17:32 Pulse Oximetry 93 06/13/23 17:32 Oxygen Delivery Method Room Air 06/13/23 17:32 Const General: comfortable HENMT HENMT Other: Very dry mucous membranes Resp Effort & Inspection: no cough and tachypneic Auscultation: clear to auscultation bilaterally Cardio Rate: regular rate Rhythm: regular rhythm GI Inspection: normal to inspection and non-distended Skin Other: Dry mucous membranes, normal skin turgor but does have dry skin Neuro Other: Patient is moving all 4 extremities. She does follow commands she does squeeze her hands and wiggle her toes but does not necessarily make other purposeful movements. She answers either ?yes? or no? to all questioning. I am not convinced that she is answering appropriately. Extrem Other: Surgical dressings to right foot appear clean dry and intact. Scores GCS Acra coma scale eye opening: Spontaneous Rod coma scale verbal response: Words Rod coma scale motor response: Obey commands Acra coma scale total score: 13 Course Orders Ordered: ED Orders 06/13/23 17:45 EKG-12 Lead Stat 06/13/23 17:46 CT head/brain wo con Stat 06/13/23 18:00 Acetaminophen Stat Complete Blood Count AUTO DIFF Stat Comprehensive Metabolic Panel Urgent Ethanol (ETOH) Stat Lactate (Lactic Acid) Stat PTT Partial Thromboplastin Carlos Stat Procalcitonin Stat Prothrombin Time INR Stat 06/13/23 18:45 Blood Culture Stat 06/13/23 20:46 BMP [Basic Metabolic Panel] Stat 06/13/23 21:05 Urinalysis and Microscopic Stat Urine Drug Screen, Rapid Stat Acetaminophen (Acetaminophen 325 Mg Tablet) 650 mg PO Q6H PRN PRN Reason: Fever/Mild Pain (1-3) Albuterol (Albuterol 2.5 Mg/3 Ml Neb (Adult)) 2.5 mg INH [id number] PRN PRN Reason: Dyspnea Amlodipine Besylate (Amlodipine 5 Mg Tablet) 10 mg PO BEDTIME ANDRESSA Atorvastatin Calcium (Atorvastatin 20 Mg Tablet) 20 mg PO BEDTIME ANDRESSA Sodium Chloride (Normal Saline 0.9%) 1,000 mls @ 150 mls/hr IV CONT ANDRESSA Last Admin: 06/13/23 20:20 Dose: 150 mls/hr Documented By: BB Ceftriaxone Sodium 2,000 mg/ (Sodium Chloride) 100 mls @ 200 mls/hr IV Q24H ANDRESSA Levothyroxine Sodium (Levothyroxine 75 Mcg Tablet) 75 mcg PO DAILY@0600 ANDRESSA Lorazepam (Lorazepam 1 Mg Tablet) 0.5 mg PO TID PENDING SALE TO [facility] Last Admin: 06/13/23 23:00 Dose: 0.5 mg Documented By: CT Lorazepam (Lorazepam 2 Mg/Ml Inj) 0.25 mg IV Q4HR PRN PRN Reason: Anxiety Melatonin (Melatonin 3 Mg Tablet) 9 mg PO BEDTIME PRN PRN Reason: insomnia Methocarbamol (Methocarbamol 500 Mg Tablet) 500 mg PO BID PENDING SALE TO [facility] Last Admin: 06/13/23 23:01 Dose: 500 mg Documented By: CT Metoclopramide HCl (Metoclopramide Hcl 5 Mg Tablet) 10 mg PO Q6H PRN PRN Reason: NAUSEA/VOMITING Naloxone HCl (Naloxone 0.4 Mg/Ml Vial) 0.2 mg IV Q2MIN PRN PRN Reason: Opiate Reversal Ondansetron HCl (Ondansetron 4 Mg Odt) 4 mg PO Q8H PRN PRN Reason: nausea and vomiting Ondansetron HCl (Ondansetron 4 Mg/2 Ml Inj) 4 mg IV Q8HR PRN PRN Reason: Nausea And Vomiting Pantoprazole Sodium (Pantoprazole Dr 20 Mg Tablet) 20 mg PO 0600 ANDRESSA Promethazine HCl (Promethazine 25 Mg Supp) 25 mg WI Q6H PRN PRN Reason: nausea and vomiting Quetiapine Fumarate (Quetiapine 100 Mg Tablet) 300 mg PO BEDTIME PENDING SALE TO [facility] Last Admin: 06/13/23 23:02 Dose: 300 mg Documented By: CT Discontinued Medications Sodium Chloride (Normal Saline 0.9%) 1,000 mls @ 1,000 mls/hr IV BOLUS ONE Stop: 06/13/23 18:44 Last Infusion: 06/13/23 20:17 Dose: Infused Documented By: Admin: 06/13/23 18:10 Dose: 1,000 mls/hr Documented By: FELIBERTO Ceftriaxone Sodium 1,000 mg/ (Sodium Chloride) 100 mls @ 200 mls/hr IV NOW ONE Stop: 06/13/23 18:20 Last Infusion: 06/13/23 19:37 Dose: Infused Documented By: Admin: 06/13/23 18:52 Dose: 200 mls/hr Documented By: FELIBERTO Lorazepam (Lorazepam 2 Mg/Ml Inj) 1 mg IV NOW ONE Stop: 06/13/23 18:51 Last Admin: 06/13/23 18:55 Dose: 1 mg Documented By: FELIBERTO Non-Formulary Medication (Metoclopramide Hcl [Reglan]) 10 mg PO Q6H PRN PRN Reason: nausea and vomiting Quetiapine Fumarate (Quetiapine 25 Mg Tablet) 50 mg PO BID PENDING SALE TO [facility] Vital Signs Vital signs: Vital Signs - 8 hr 06/13/23 17:32 06/13/23 17:45 06/13/23 17:46 Temperature 98.3 F Pulse Rate 103 H 109 H 106 H Respiratory Rate 40 H 43 H 46 H Blood Pressure 170/93 H Pulse Oximetry 93 99 100 Oxygen Delivery Method Room Air Oxygen Flow Rate 06/13/23 17:46 06/13/23 18:00 06/13/23 18:17 Temperature Pulse Rate 99 H 87 Respiratory Rate 39 H 33 H Blood Pressure 170/78 H Pulse Oximetry 91 100 Oxygen Delivery Method Oxygen Flow Rate 06/13/23 18:17 06/13/23 18:30 06/13/23 18:30 Temperature Pulse Rate 92 H Respiratory Rate 31 H Blood Pressure 152/69 H 150/70 H Pulse Oximetry 100 Oxygen Delivery Method Oxygen Flow Rate 06/13/23 19:00 06/13/23 19:00 06/13/23 19:20 Temperature Pulse Rate 79 Respiratory Rate 22 Blood Pressure 122/58 L Pulse Oximetry 99 92 Oxygen Delivery Method Room Air Nasal Cannula Oxygen Flow Rate 3 06/13/23 19:30 06/13/23 19:30 06/13/23 20:00 Temperature Pulse Rate 91 H 85 Respiratory Rate 15 12 Blood Pressure 140/64 Pulse Oximetry 100 96 Oxygen Delivery Method Nasal Cannula Oxygen Flow Rate 2 06/13/23 20:01 06/13/23 20:01 06/13/23 20:30 Temperature Pulse Rate 87 77 Respiratory Rate 14 15 Blood Pressure 98/57 L Pulse Oximetry 99 96 Oxygen Delivery Method Nasal Cannula Nasal Cannula Oxygen Flow Rate 2 2 06/13/23 20:30 06/13/23 21:00 06/13/23 21:04 Temperature Pulse Rate 107 H Respiratory Rate 27 H Blood Pressure 102/55 L 162/74 H Pulse Oximetry 100 Oxygen Delivery Method Oxygen Flow Rate 06/13/23 21:04 Temperature Pulse Rate 96 H Respiratory Rate 15 Blood Pressure Pulse Oximetry 100 Oxygen Delivery Method Nasal Cannula Oxygen Flow Rate 2 Medical Decision Making Medical Records Medical records reviewed: Yes I reviewed the patient's medical records. Lab Data Lab results reviewed: Yes I reviewed the patient's lab results. 06/13/23 18:00 06/13/23 20:46 Labs: Lab Results 06/13/23 06/13/23 06/13/23 Range/Units 18:00 20:46 21:05 WBC 23.5 H (4.5-11.0) X10^3/uL RBC 4.18 (4.0-5.2) X10^6/uL Hgb 12.1 (12.0-16.0) g/dL Hct 36.2 (36-46) % MCV 86.6 (80-100) fL MCH 29.0 (26-34) PG MCHC 33.5 (30-36) % RDW 13.9 (11.6-14.8) % Plt Count 442 H (150-400) X10^3/uL Neut % (Auto) 76.1 H (50-75) % Lymph % (Auto) 15.9 L (25-40) % [place] % (Auto) 7.1 (3-14) % Eos % (Auto) 0.1 L (2-4) % Baso % (Auto) 0.8 (0-2) % Neut # (Auto) 94139 H (3916-2428) /uL Lymph # (Auto) 3700 (3724-0897) /uL [place] # (Auto) 1700 H (0-900) /uL Eos # (Auto) 0 (0-450) /uL Baso # (Auto) 200 H (0-100) /uL PT 11.6 (9.4-12.5) SECONDS INR 1.0 (0.9-1.3) APTT 30 (25.1-36.5) SECONDS Sodium 146 H 146 H (137-145) mmol/L Potassium 4.1 3.4 (3.4-5.1) mmol/L Chloride 109 H 115 H (98-107) mmol/L Carbon Dioxide 16 L 17 L (22-32) mmol/L BUN 38 H 35 H (7-17) mg/dL Creatinine 2.06 H 1.64 H (0.52-1.04) mg/dL Estimated GFR 25 L 33 L (>60) mL/min BUN/Creatinine Ratio 18.4 21.3 (6-22) Glucose 99 86 (80-110) mg/dL Lactate 2.9 H 1.0 (0.7-2.1) mmol/L Calcium 10.2 8.6 (8.4-10.2) mg/dL Total Bilirubin 0.7 (0.2-1.3) mg/dL AST 43 H (14-36) IU/L ALT 25 (<35) IU/L Alkaline Phosphatase 151 H (38-126) U/L Total Protein 8.8 H (6.3-8.2) g/dL Albumin 4.7 (3.5-5.0) g/dL Globulin 4.1 (1.7-4.1) g/dL Albumin/Globulin Ratio 1.1 (1.0-2.8) Procalcitonin 0.09 (<0.5) ng/mL Urine Color Yellow Urine Appearance Clear Urine pH 5.5 (4.5-8.0) Ur Specific [place] 1.020 (1.000-1.035) Urine Protein Trace H (Negative) Urine Glucose (UA) Negative (Negative) g/dL Urine Ketones 1+ H (NEGATIVE) Urine Occult Blood Negative (Negative) Urine Nitrate Negative (Negative) Urine Bilirubin Negative (NEGATIVE) Urine Urobilinogen 0.2 (0.2) E.U./dL Ur Leukocyte Esterase Negative (NEGATIVE) Urine RBC None seen (0-5/HPF) Urine WBC None seen (0-5/HPF) Ur Squamous Epith Cells 0-1 /hpf (0-5/HPF) Urine Bacteria None seen (None) Ur Culture Indicated? Cult not indicated Vol Urine Centrifuged 10ml (spun) U Opiates 300ng/mL cut Positive H (Negative) Ur Oxycodone Screen Positive H (Negative) Urine Methadone Screen Negative (Negative) Acetaminophen < 10 (10-30) ug/mL Ur Barbiturates Screen Negative (Negative) U Tricyclic Antidepress Negative (Negative) Ur Phencyclidine Scrn Negative (Negative) Ur Amphetamines Screen Negative (Negative) U Methamphetamines Scrn Negative (Negative) Ur MDMA Scrn (Ecstasy) Negative (Negative) U Benzodiazepines Scrn Negative (Negative) Urine Cocaine Screen Negative (Negative) U Marijuana (THC) Screen Negative (Negative) Urine Specific [place] (Normal) Ethyl Alcohol < 10 ( - 10) mg/dL Ur Creatinine (Normal) 06/13/23 Range/Units 21:05 WBC (4.5-11.0) X10^3/uL RBC (4.0-5.2) X10^6/uL Hgb (12.0-16.0) g/dL Hct (36-46) % MCV (80-100) fL MCH (26-34) PG MCHC (30-36) % RDW (11.6-14.8) % Plt Count (150-400) X10^3/uL Neut % (Auto) (50-75) % Lymph % (Auto) (25-40) % [place] % (Auto) (3-14) % Eos % (Auto) (2-4) % Baso % (Auto) (0-2) % Neut # (Auto) (8762-5588) /uL Lymph # (Auto) (8087-6973) /uL [place] # (Auto) (0-900) /uL Eos # (Auto) (0-450) /uL Baso # (Auto) (0-100) /uL PT (9.4-12.5) SECONDS INR (0.9-1.3) APTT (25.1-36.5) SECONDS Sodium (137-145) mmol/L Potassium (3.4-5.1) mmol/L Chloride (98-107) mmol/L Carbon Dioxide (22-32) mmol/L BUN (7-17) mg/dL Creatinine (0.52-1.04) mg/dL Estimated GFR (>60) mL/min BUN/Creatinine Ratio (6-22) Glucose (80-110) mg/dL Lactate (0.7-2.1) mmol/L Calcium (8.4-10.2) mg/dL Total Bilirubin (0.2-1.3) mg/dL AST (14-36) IU/L ALT (<35) IU/L Alkaline Phosphatase (38-126) U/L Total Protein (6.3-8.2) g/dL Albumin (3.5-5.0) g/dL Globulin (1.7-4.1) g/dL Albumin/Globulin Ratio (1.0-2.8) Procalcitonin (<0.5) ng/mL Urine Color Urine Appearance Urine pH Normal (4.5-8.0) Ur Specific [place] (1.000-1.035) Urine Protein (Negative) Urine Glucose (UA) (Negative) g/dL Urine Ketones (NEGATIVE) Urine Occult Blood (Negative) Urine Nitrate (Negative) Urine Bilirubin (NEGATIVE) Urine Urobilinogen (0.2) E.U./dL Ur Leukocyte Esterase (NEGATIVE) Urine RBC (0-5/HPF) Urine WBC (0-5/HPF) Ur Squamous Epith Cells (0-5/HPF) Urine Bacteria (None) Ur Culture Indicated? Vol Urine Centrifuged U Opiates 300ng/mL cut (Negative) Ur Oxycodone Screen (Negative) Urine Methadone Screen (Negative) Acetaminophen (10-30) ug/mL Ur Barbiturates Screen (Negative) U Tricyclic Antidepress (Negative) Ur Phencyclidine Scrn (Negative) Ur Amphetamines Screen (Negative) U Methamphetamines Scrn (Negative) Ur MDMA Scrn (Ecstasy) (Negative) U Benzodiazepines Scrn (Negative) Urine Cocaine Screen (Negative) U Marijuana (THC) Screen (Negative) Urine Specific [place] Normal (Normal) Ethyl Alcohol ( - 10) mg/dL Ur Creatinine Normal (Normal) Point of Care Testing Glucose POC 87 Point of care testing: Point of Care Testing Glucose POC [address] scan - head: Radiologist's Impression: ROCEDURE: CT HEAD/BRAIN WO CON INDICATIONS: Altered mental status TECHNIQUE: Noncontrast 4.5 mm thick angled axial sections acquired from the foramen magnum to the vertex, with coronal and sagittal reformats. For radiation dose reduction, the following was used: automated exposure control, adjustment of mA and/or kV according to patient size. COMPARISON: [facility], CT, CT HEAD/BRAIN WO CON, 03/01/2023, 15:11. FINDINGS: Image quality: Diagnostic. CSF spaces: Basal cisterns are patent. No extra-axial fluid collections. The ventricles are symmetric in size and shape. Brain: No intracranial bleeds or masses. There is cerebral volume loss for age, with resultant ventricular and sulcal prominence. There are periventricular and deep white matter chronic small vessel ischemic changes. There is intracranial internal carotid artery atherosclerosis. Skull and face: Calvarium and visualized facial bones appear intact, without suspicious lesions. Sinuses: Visualized sinuses and mastoids are clear. IMPRESSION: No acute intracranial pathology. [facility] Narrative Medical decision making narrative: Patient is clinically dehydrated given her tachycardia, very dry mucous membranes and dry skin in the fact that her states she has not had anything to drink since this morning. Head CT is unremarkable. Does have a leukocytosis however is afebrile. Had an elevated lactate which improved with fluids. Blood cultures were obtained. Fluid was administered. She was never hypotensive. I suspect the leukocytosis is related to her encephalopathy not necessarily an infection. Patient is positive for opioids but she has been taking pain medicines since her surgery. She was also not been on any of her normal medications since at least the surgery and potentially prior to that per her . She was given Ativan here in the ER because she seemed very agitated and confused. This did calm her down tremendously. I did discuss the case with hospitalist. Decision was made to admit to the hospital for further evaluation and treatment. Upon further review of the case I did come across that the patient is hypothyroid and according to has been taking her medicines. A thyroid level was not drawn here in the emergency department. I re-contacted the admitting provider to discuss this as a possibility. He will check labs as inpatient Discharge Plan Departure Patient Disposition: Admitted As Inpatient Clinical Impression: Altered mental status, Dehydration, VELASQUEZ (acute kidney injury) Admit Date/Time: 06/13/23 21:12 Admit Provider: Chacho Batista
[2023-06-13 18:20] LABS: Prothrombin Time 11.6 SECONDS (9.4-12.5)
[2023-06-13 18:23] LABS: PTT Partial Thromboplastin Tim 30 SECONDS (25.1-36.5)
[2023-06-13 18:24] LABS: Lactate (Lactic Acid) 2.9 mmol/L (0.7-2.1)
[2023-06-13 18:26] LABS: Alanine Aminotransferase 25 IU/L (<35); Albumin 4.7 g/dL (3.5-5.0); Albumin Globulin Ratio 1.1 (1.0-2.8); Alkaline Phosphatase 151 U/L (38-126); Aspartate Aminotransferase 43 IU/L (14-36); BUN Creatinine Ratio 18.4 (6-22); Bilirubin Total 0.7 mg/dL (0.2-1.3); Blood Urea Nitrogen 38 mg/dL (7-17); Calcium 10.2 mg/dL (8.4-10.2); Carbon Dioxide 16 mmol/L (22-32); Chloride 109 mmol/L (98-107); Estimated Glomerular Filt Rate 25 mL/min (>60); Globulin 4.1 g/dL (1.7-4.1); Glucose 99 mg/dL (80-110); HEMOLYSIS < 15 (0-50); Potassium 4.1 mmol/L (3.4-5.1); Sodium 146 mmol/L (137-145); Total Protein 8.8 g/dL (6.3-8.2)
[2023-06-13 18:27] LABS: Acetaminophen < 10 ug/mL (10-30); Ethanol (ETOH) < 10 mg/dL
[2023-06-13 18:43] LABS: Procalcitonin 0.09 ng/mL (<0.5)
[2023-06-13] MEDS: cefTRIAXone 1,000 MG in SODIUM CHLORIDE 0.9% 100 ML 200 MG IV (18:52)
[2023-06-13] MEDS: LORazepam 2 MG/ML INJ 1 MG IV (18:55)
[2023-06-13 19:50] LABS: Reflexed Lactate in 2 Hours Y
[2023-06-13] MEDS: SODIUM CHLORIDE 0.9% 1,000 ML 150 ML IV (20:20)
[2023-06-13 21:20] LABS: BUN Creatinine Ratio 21.3 (6-22); Blood Urea Nitrogen 35 mg/dL (7-17); Calcium 8.6 mg/dL (8.4-10.2); Carbon Dioxide 17 mmol/L (22-32); Chloride 115 mmol/L (98-107); Estimated Glomerular Filt Rate 33 mL/min (>60); Glucose 86 mg/dL (80-110); HEMOLYSIS < 15 (0-50); Potassium 3.4 mmol/L (3.4-5.1); Sodium 146 mmol/L (137-145)
[2023-06-13 21:31] LABS: Appearance Urine UA CLEAR; Bilirubin Urine UA NEGATIVE (NEGATIVE); Color Urine UA YELLOW; Glucose Urine UA NEGATIVE (Negative); Ketones Urine UA 1+ (NEGATIVE); Leukocyte Esterase Urine UA NEGATIVE (NEGATIVE); Nitrite Urine UA NEGATIVE (Negative); Occult Blood Urine UA NEGATIVE (Negative); Protein Urine UA TRACE (Negative); Urobilinogen Urine UA 0.2 E.U./dL (0.2)
[2023-06-13 21:36] LABS: UR Morphine/Opiate cutoff 300 Positive (Negative); Ur Creatinine Normal (Normal); Ur Specific Gravity Normal (Normal); Urine Amphetamines Negative (Negative); Urine Barbiturates Negative (Negative); Urine Benzodiazepines Negative (Negative); Urine Cocaine Negative (Negative); Urine MDMA Negative (Negative); Urine Methadone Negative (Negative); Urine Methamphetamines Negative (Negative); Urine Oxycodone Positive (Negative); Urine Phencyclidine Negative (Negative); Urine Tetrahydrocannabinol Negative (Negative); Urine Tricyclic Antidepressant Negative (Negative); Urine pH Normal (Normal)
[2023-06-13 21:57] LABS: Bacteria Urine None Seen; Culture Indicated Urine Cult Not Indicated; RBC Urine None Seen (0-5/HPF); Squamous Epithelial Cell Urine 0-1 /HPF (0-5/HPF); Urine Volume 10mL (spun); WBC Urine None Seen (0-5/HPF); pH Urine UA 5.5 (4.5-8.0)
[2023-06-13] MEDS: LORazepam 1 MG TABLET 0.5 MG PO (23:00)
[2023-06-13] MEDS: methocarbamoL 500 MG TABLET PO (23:01)
[2023-06-13] MEDS: QUETIAPINE 100 MG TABLET 300 MG PO (23:02)
--- NOTE | 2023-06-14 00:59 | PM.HP.1 ---
History of Present Illness History of Present Illness Chief complaint: Altered mental status Narrative: 73 years old female with history of hypertension, hyperlipidemia, hypothyroidism, bipolar disorder, depression, history of opiate overdose with multiple admissions for hyponatremia, presented to the ER with altered mental status/confusion in the last several days. The patient had right toe surgery 3 days ago and was fine. After the surgery her medications were held and she became increasingly confused. The patient is poor historians but denies any pain. In the ER she was given Ativan and she responded well and became more responsive. She is currently on quetiapine, lorazepam as needed. 5, creatinine 1.64, procalcitonin 0.09, lactic acid 1, U tox positive for opioids and oxycodone, CT of the head unremarkable. [facility] Medical History Eczema Hypothyroidism (acquired) Bipolar disorder Hypertension Surgical History Hx of cholecystectomy Family History Mother Alcohol abuse Father CVA (cerebral vascular accident) Social History household members: spouse Smoking Status: Never smoker alcohol intake: former Meds Home Medications and Allergies Home Medications Medication Instructions Recorded Confirmed Type amlodipine 10 mg tablet 10 mg PO BEDTIME 03/06/20 06/13/23 History quetiapine 300 mg tablet 300 mg PO BEDTIME 07/13/21 06/13/23 History metoclopramide HCl 10 mg tablet 10 mg PO Q6H PRN nausea and 08/27/21 06/13/23 Rx (Reglan) vomiting #14 tabs atorvastatin 20 mg tablet 20 mg PO BEDTIME 04/22/22 06/13/23 History betamethasone dipropionate 0.05 % 0.05 applic topical BID eczema 04/22/22 06/13/23 History topical cream oxycodone 5 mg tablet 5 mg PO TID PRN pain 04/22/22 06/13/23 History ondansetron 4 mg disintegrating 4 mg PO Q8H PRN nausea and 05/08/22 06/13/23 Rx tablet vomiting #14 tabs levothyroxine 75 mcg tablet 75 mcg PO DAILY@0600 #30 tabs 01/08/23 02/08/24 Rx (Synthroid) Calcium 500 1 tab PO BEDTIME 06/13/23 06/13/23 History lorazepam 1 mg tablet 0.5 mg PO 3XD 06/13/23 06/13/23 History Allergies Allergy/AdvReac Type Severity Reaction Status Date / Time Sulfa (Sulfonamide Allergy Unknown Verified 06/13/23 18:05 Antibiotics) desipramine Allergy Rash Verified 06/13/23 18:05 Review of Systems Review of Systems ROS: Yes All systems reviewed with the patient and are negative except as otherwise documented Constitutional Constitutional: Reports as per HPI and Reports system reviewed and no additional complaints, except as documented Eyes Eyes: Reports as per HPI and Reports system reviewed and no additional complaints, except as documented ENT Ears, Nose, Mouth, and Throat: Yes as per HPI and Yes system reviewed and no additional complaints, except as documented Cardiovascular Cardiovascular: Reports system reviewed and no additional complaints, except as documented Respiratory Respiratory: Reports system reviewed and no additional complaints, except as documented Gastrointestinal Gastrointestinal: Reports system reviewed and no additional complaints, except as documented Genitourinary Genitourinary: Reports system reviewed and no additional complaints, except as documented Musculoskeletal Musculoskeletal: Reports system reviewed and no additional complaints, except as documented, Reports abnormal gait and Reports numbness Neurologic Neurologic: Reports system reviewed and no additional complaints, except as documented, Reports abnormal gait, Reports confusion and Reports numbness Psychiatric Psychiatric: Reports system reviewed and no additional complaints, except as documented and Reports confusion Exam Vital Signs (past 8 hours): - 06/13/23 17:32 06/13/23 17:45 06/13/23 17:46 Temperature 98.3 F Pulse Rate 103 H 109 H 106 H Respiratory Rate 40 H 43 H 46 H Blood Pressure 170/93 H Pulse Oximetry 93 99 100 Oxygen Delivery Method Room Air Oxygen Flow Rate 06/13/23 17:46 06/13/23 18:00 06/13/23 18:17 Temperature Pulse Rate 99 H 87 Respiratory Rate 39 H 33 H Blood Pressure 170/78 H Pulse Oximetry 91 100 Oxygen Delivery Method Oxygen Flow Rate 06/13/23 18:17 06/13/23 18:30 06/13/23 18:30 Temperature Pulse Rate 92 H Respiratory Rate 31 H Blood Pressure 152/69 H 150/70 H Pulse Oximetry 100 Oxygen Delivery Method Oxygen Flow Rate 06/13/23 19:00 06/13/23 19:00 06/13/23 19:20 Temperature Pulse Rate 79 Respiratory Rate 22 Blood Pressure 122/58 L Pulse Oximetry 99 92 Oxygen Delivery Method Room Air Nasal Cannula Oxygen Flow Rate 3 06/13/23 19:30 06/13/23 19:30 06/13/23 20:00 Temperature Pulse Rate 91 H 85 Respiratory Rate 15 12 Blood Pressure 140/64 Pulse Oximetry 100 96 Oxygen Delivery Method Nasal Cannula Oxygen Flow Rate 2 06/13/23 20:01 06/13/23 20:01 06/13/23 20:30 Temperature Pulse Rate 87 77 Respiratory Rate 14 15 Blood Pressure 98/57 L Pulse Oximetry 99 96 Oxygen Delivery Method Nasal Cannula Nasal Cannula Oxygen Flow Rate 2 2 06/13/23 20:30 06/13/23 21:00 06/13/23 21:04 Temperature Pulse Rate 107 H Respiratory Rate 27 H Blood Pressure 102/55 L 162/74 H Pulse Oximetry 100 Oxygen Delivery Method Oxygen Flow Rate 06/13/23 21:04 06/13/23 21:45 06/13/23 22:40 Temperature 97.2 F L Pulse Rate 96 H 98 H Respiratory Rate 15 18 Blood Pressure 130/60 Pulse Oximetry 100 97 Oxygen Delivery Method Nasal Cannula Room Air Oxygen Flow Rate 2 0 Oxygen Delivery Method Room Air Oxygen Flow Rate 0 Const General: cooperative, comfortable and well developed Orientation: alert and oriented x3 HENRI Head: normal to inspection, normocephalic and atraumatic Face and sinus: normal facial exam Mouth: oral mucosae normal and moist mucous membranes Throat: posterior oropharynx normal Eyes General: appearance normal, both eyes and all related structures Pupils: PERRL EOM: EOM intact bilaterally Neck Neck: normal visual inspection and full ROM Chest Chest: normal inspection of the chest Resp Effort & Inspection: normal respiratory effort and able to speak in complete sentences Auscultation: clear to auscultation bilaterally Cardio Palpation: normal PMI Rate: regular rate Rhythm: regular rhythm Heart Sounds: S1 normal and S2 normal GI Inspection: normal to inspection Palpation: soft and no hepatosplenomegaly Auscultation: normal bowel sounds Skin General: no rashes or lesions noted Lesions: no lesions Rashes: no rashes Trauma: no lacerations or abrasions Neuro General: patient alert, patient awake, patient oriented x3 and no focal motor deficits Cranial Nerves: CN's II-XI intact bilaterally Cognition: normal cognition Speech: speech normal Gait: normal gait Motor: muscle tone normal throughout Sensory Exam: no sensory deficits noted Extrem General: full ROM and no calf tenderness Psych Appearance: grossly normal Mental Status: mental status grossly normal Speech and Movement: speech and movement normal Objective Labs 06/13/23 18:00 06/13/23 20:46 Labs: Laboratory Results - last 24 hr 06/13/23 06/13/23 06/13/23 18:00 20:46 21:05 WBC 23.5 H RBC 4.18 Hgb 12.1 Hct 36.2 MCV 86.6 MCH 29.0 MCHC 33.5 RDW 13.9 Plt Count 442 H Neut % (Auto) 76.1 H Lymph % (Auto) 15.9 L Crow[place] % (Auto) 7.1 Eos % (Auto) 0.1 L Baso % (Auto) 0.8 Neut # (Auto) 16066 H Lymph # (Auto) 3700 Crowley # (Auto) 1700 H Eos # (Auto) 0 Baso # (Auto) 200 H PT 11.6 INR 1.0 APTT 30 Sodium 146 H 146 H Potassium 4.1 3.4 Chloride 109 H 115 H Carbon Dioxide 16 L 17 L BUN 38 H 35 H Creatinine 2.06 H 1.64 H Estimated GFR 25 L 33 L BUN/Creatinine Ratio 18.4 21.3 Glucose 99 86 Lactate 2.9 H 1.0 Calcium 10.2 8.6 Total Bilirubin 0.7 AST 43 H ALT 25 Alkaline Phosphatase 151 H Total Protein 8.8 H Albumin 4.7 Globulin 4.1 Albumin/Globulin Ratio 1.1 Procalcitonin 0.09 Urine Color Yellow Urine Appearance Clear Urine pH 5.5 Ur Specific [place] 1.020 Urine Protein Trace H Urine Glucose (UA) Negative Urine Ketones 1+ H Urine Occult Blood Negative Urine Nitrate Negative Urine Bilirubin Negative Urine Urobilinogen 0.2 Ur Leukocyte Esterase Negative Urine RBC None seen Urine WBC None seen Ur Squamous Epith Cells 0-1 /hpf Urine Bacteria None seen Ur Culture Indicated? Cult not indicated Vol Urine Centrifuged 10ml (spun) U Opiates 300ng/mL cut Positive H Ur Oxycodone Screen Positive H Urine Methadone Screen Negative Acetaminophen < 10 Ur Barbiturates Screen Negative U Tricyclic Antidepress Negative Ur Phencyclidine Scrn Negative Ur Amphetamines Screen Negative U Methamphetamines Scrn Negative Ur MDMA Scrn (Ecstasy) Negative U Benzodiazepines Scrn Negative Urine Cocaine Screen Negative U Marijuana (THC) Screen Negative Urine Specific [place] Ethyl Alcohol < 10 Ur Creatinine 06/13/23 21:05 WBC RBC Hgb Hct MCV MCH MCHC RDW Plt Count Neut % (Auto) Lymph % (Auto) [place] % (Auto) Eos % (Auto) Baso % (Auto) Neut # (Auto) Lymph # (Auto) [place] # (Auto) Eos # (Auto) Baso # (Auto) PT INR APTT Sodium Potassium Chloride Carbon Dioxide BUN Creatinine Estimated GFR BUN/Creatinine Ratio Glucose Lactate Calcium Total Bilirubin AST ALT Alkaline Phosphatase Total Protein Albumin Globulin Albumin/Globulin Ratio Procalcitonin Urine Color Urine Appearance Urine pH Normal Ur Specific [place] Urine Protein Urine Glucose (UA) Urine Ketones Urine Occult Blood Urine Nitrate Urine Bilirubin Urine Urobilinogen Ur Leukocyte Esterase Urine RBC Urine WBC Ur Squamous Epith Cells Urine Bacteria Ur Culture Indicated? Vol Urine Centrifuged U Opiates 300ng/mL cut Ur Oxycodone Screen Urine Methadone Screen Acetaminophen Ur Barbiturates Screen U Tricyclic Antidepress Ur Phencyclidine Scrn Ur Amphetamines Screen U Methamphetamines Scrn Ur MDMA Scrn (Ecstasy) U Benzodiazepines Scrn Urine Cocaine Screen U Marijuana (THC) Screen Urine Specific [place] Normal Ethyl Alcohol Ur Creatinine Normal Assessment & Plan Assessment & Plan narrative: Altered mental status. Etiology unclear. Suspect medication withdrawal versus opiate OD. Will monitor her mentation and avoid any mediations potentially affecting mentation. Acute kidney injury. Presented with creatinine 1.64, baseline between 0.8-1. Most likely pre-renal. -continue with IV fluid hydration. -monitor UOP. -daily BMP -Avoid any nephrotoxic agents, including NSAIDs -Continue to monitor BP. Avoid drastic lowering of blood pressure in order to maintain a good renal perfusion -Dose all medications according pt's current eGFR Leukocytosis from unclear etiology. UA is negative. Given ceftriaxone 2 g IV in the ED. Continue for now and follow-up on the urine culture and blood culture. Hypertension. Continue amlodipine Hyperlipidemia. Continue Lipitor Bipolar disorder. Continue Seroquel and trazodone. Ativan as needed Chronic pain. Avoids any opiates for now. Tylenol as needed Time Spent With Patient Time with patient: 50 to 69 minutes with 50% spent counseling/coordinating care Quality VTE Deep Vein Thrombosis/Pulmonary Embolism Present on Admission: No MIPS - Admit I confirm the patient?s Advance Care Plan is present, Code status is documented, Surrogate decision maker is in patient?s record [If Yes, STOP here]: Yes MIPS - Meds 'Current medications' to include all prescriptions, [id number] products, herbals, cannabis/cannabidiol products, and vitamin/mineral/dietary (nutritional) supplements. I have utilized all available resources to obtain, update, or review the patient?s current medications. [If Yes, STOP here]: Yes
[2023-06-14] MEDS: LORazepam 2 MG/ML INJ 0.25 MG IV ×3 (03:11→14:09)
--- NOTE | 2023-06-14 03:47 | DI.CT.S_ITS ---
PROCEDURE: CT ANGIO HEAD AND NECK INDICATIONS: stroke like symptoms TECHNIQUE: After the administration of intravenous contrast, 1 mm thick sections acquired from the aortic arch through the [place]. 3-dimensional hoidmri-vggppjyoy-pskjxcwrwf (MIP) and/or volume rendering reformats were acquired of the central intracranial vasculature and neck separately. For radiation dose reduction, the following was used: automated exposure control, adjustment of mA and/or kV according to patient size. COMPARISON: [facility], CT, CT HEAD/BRAIN WO CON, 06/14/2023, 3:39. FINDINGS: Image quality: Diagnostic. BRAIN: Please see separately dictated CT of the head. HEAD CT ANGIOGRAPHY: Anterior circulation: Intracranial internal carotid arteries are normal in size and flow with mild atherosclerotic calcifications. The flow within the paired anterior cerebral arteries is normal and symmetric. The flow within the middle cerebral arteries is normal and symmetric. The anterior communicating artery is seen. No aneurysms are seen. Posterior circulation: Visualized portions of the vertebral arteries demonstrate normal caliber, and join to form a normal appearing basilar artery. origin of the left [employer]. Flow within the posterior cerebral arteries is normal and symmetric. No aneurysms are seen. NECK CT ANGIOGRAPHY: Carotid system: The great vessels demonstrate a conventional anatomy as they arise from the aortic arch with atherosclerotic vascular calcifications. The origins of the common carotid arteries appear patent. The common carotid arteries demonstrate normal caliber and courses. The bifurcation regions are both widely patent with mild atherosclerotic plaques of the left carotid bulb. The internal carotid arteries demonstrate normal calibers and courses. Posterior circulation: The origins of the vertebral arteries both appear widely patent. The more superior extracranial portions of both vertebral arteries also demonstrate normal courses and calibers. Left vertebral artery is dominant. Majority of the right vertebral artery terminates into the PICA. They join to form a normal appearing basilar artery. Soft tissues: Visualized neck soft tissues demonstrate no suspicious abnormalities. Dependent atelectasis. Bones: No suspicious bony lesions. Visualized cervical spine appears normally aligned. IMPRESSION: No significant intracranial arterial abnormality is seen. Mild atherosclerotic calcifications. No significant abnormality is seen within the arteries of the neck. Mild atherosclerotic calcifications. Low-density lesion in the right hepatic lobe, likely a simple cyst. Any quantitative measurements of stenosis were performed using NASCET criteria. Findings are concordant with preliminary interpretation provided by [facility]. Dictated by: Dg Willett M.D. on 06/14/2023 at 8:22 Approved by: Dg Willett M.D. on 06/14/2023 at 8:33
--- NOTE | 2023-06-14 04:06 | DI.CT.S_ITS ---
PROCEDURE: CT HEAD/BRAIN WO CON INDICATIONS: cva TECHNIQUE: Noncontrast 4.5 mm thick angled axial sections acquired from the foramen magnum to the vertex, with coronal and sagittal reformats. For radiation dose reduction, the following was used: automated exposure control, adjustment of mA and/or kV according to patient size. COMPARISON: [facility], CT, CT ANGIO HEAD AND NECK, 06/14/2023, 4:07. [facility], CT, CT HEAD/BRAIN WO CON, 03/01/2023, 15:11. [facility], CT, CT HEAD/BRAIN WO CON, 06/14/2023, 3:39. FINDINGS: Image quality: Diagnostic. CSF spaces: Basal cisterns are patent. No extra-axial fluid collections. The ventricles are symmetric in size and shape. Brain: No intracranial bleeds or masses. There is cerebral volume loss for age, with resultant ventricular and sulcal prominence. There are periventricular and deep white matter chronic small vessel ischemic changes. There is intracranial internal carotid artery atherosclerosis. Skull and face: Calvarium and visualized facial bones appear intact, without suspicious lesions. Sinuses: Visualized sinuses and mastoids are clear. IMPRESSION: 1. No acute intracranial process. 2. Moderate atrophy and chronic microvascular ischemic changes. Dictated by: Almaz Hein M.D. on 06/14/2023 at 9:30 Approved by: Almaz Hein M.D. on 06/14/2023 at 9:31
[2023-06-14 04:43] LABS: Add Manual Diff / Slide Review NO; Basophils Absolute Auto 100 /uL (0-100); Basophils Percent Auto 0.7 % (0-2); Eosinophils Absolute Auto 0 /uL (0-450); Eosinophils Percent Auto 0.1 % (2-4); Hematocrit 32.8 % (36-46); Hemoglobin 10.7 g/dL (12.0-16.0); Lymphocytes Absolute Auto 2400 /uL (1100-4500); Mean Corpuscular HGB Conc 32.8 % (30-36); Mean Corpuscular Hemoglobin 29.2 PG (26-34); Mean Corpuscular Volume 88.9 fL (80-100); Monocytes Absolute Auto 700 /uL (0-900); Monocytes Percent Auto 5.2 % (3-14); Neutrophils Absolute Auto 9400 /uL (1500-7000); Platelet Count 326 X10^3/uL (150-400); Red Blood Cell Count 3.68 X10^6/uL (4.0-5.2); Red Cell Distribution Width 14.2 % (11.6-14.8); White Blood Cell Count 12.5 X10^3/uL (4.5-11.0)
--- NOTE | 2023-06-14 04:44 | DI.ECHO.S_ITS ---
[place] [facility]---------+ [facility] +---------+ : : [address] : : : : [id number] : : : : Phone: [phone] Echocardiogram Report + + :Name: BOLIVAR DURAN Study Date: 06/14/2023 Height: 62 in : :[facility] ReadingLocation: Weight: 148 lb : : Gender: Female BSA: 1.7 m2 : :: 1950 Age: 73 yrs BP: 130/60 mmHg: :Reason For Study: R/O ENDOCARDITIS : :Ordering Physician: CLIFFORD, : :PRINCESS Performed By: Lu Vences : :Referring: PRINCESS HORTON : + + Interpretation Summary The left ventricle is normal in size and wall thickness. Left ventricular systolic function appears normal without focal wall motion abnormalities. The ejection fraction is estimated to be 65-70%. Diastolic parameters suggest a relaxation abnormality of the left ventricle, consistent with probable normal filling pressures. The right ventricle is normal in size and function. The right ventricular systolic pressure is estimated to be at least 21 mmHg based on an estimated right atrial pressure of 3 mm Hg. The left atrial size is normal. There is no significant valvular heart disease. There is no obvious valvular vegetation identified on this exam. Consider WENCESLAO if there is a high degree of clinical suspicion for endocarditis and clinically appropriate. The aortic root is normal size. There is a small pericardial effusion that is circumferential. Procedure: A two-dimensional transthoracic echocardiogram with color flow and Doppler was performed. The study quality was technically adequate. Comparison is made with the echocardiogram of 12/13/2015. A contrast injection of Definity was performed to improve assessment of LV function. The patient was in sinus rhythm with heart rates between 80-100 bpm during the exam. Left Ventricle: The left ventricle is normal in size and wall thickness. Left ventricular systolic function appears normal without focal wall motion abnormalities. The ejection fraction is estimated to be 65-70%. Diastolic parameters suggest a relaxation abnormality of the left ventricle, consistent with probable normal filling pressures. Right Ventricle: The right ventricle is normal in size and function. Atria: The left atrial size is normal. Right atrial size is normal. The interatrial septum grossly appears intact with no obvious evidence for an atrial septal defect. Mitral Valve: There is mild mitral annular calcification. The mitral valve leaflets appear mildly thickened, but open well. There is mild mitral regurgitation. Aortic Valve: The aortic valve is trileaflet. The aortic valve opens well. The aortic valve is mildly calcified. There is no aortic valve stenosis. No aortic regurgitation is present. Tricuspid Valve: The tricuspid valve is normal in structure and function. There is mild tricuspid regurgitation. The right ventricular systolic pressure is estimated to be at least 21 mmHg based on an estimated right atrial pressure of 3 mm Hg. Pulmonic Valve: The pulmonic valve leaflets are thin and pliable; valve motion is normal. There is no pulmonic valvular regurgitation. There is no significant valvular heart disease. There is no obvious valvular vegetation identified on this exam. Consider WENCESLAO if there is a high degree of clinical suspicion for endocarditis and clinically appropriate. Great Vessels: The aortic root is normal size. The ascending aorta could not be visualized. The IVC is of normal diameter and collapses greater than 50% with a sniff. This suggests a low right atrial pressure of 3 mm Hg. Pericardium/ Pleura There is a small pericardial effusion that is circumferential. There is no pleural effusion. MMode/2D Measurements & Calculations LVIDd: 4.4 cm LVOT diam: 1.8 cm LVIDs: 2.7 cm Ao root diam: 2.7 cm FS: 38.1 % asc Aorta Diam: 2.6 cm EPSS: 0.85 cm Ao Arch Diam (Prox Trans): 2.1 cm IVSd: 0.71 cm LVPWd: 0.78 cm LV clay. diameter/BSA (cm/m^2): 2.6 LV sys. diameter/BSA (cm/m^2): 1.6 LA A2 area: 16.3 cm2 RA long axis: 4.3 cm LA A4 area: 15.9 cm2 RA area: 12.0 cm2 LA length (vol): 4.8 cm RA vol: 28.3 ml LA vol: 45.8 ml RA : 16.8 ml/m2 LA vol index: 27.2 ml/m2 IVC diam: 1.6 cm RVD1 (basal): 2.8 cm RVD2 (mid): 2.3 cm TAPSE: 2.2 cm Doppler Measurements & Calculations Ao V2 max: 172.2 cm/sec LVOT Max Jose Eduardo: 108.8 cm/sec Ao V2 mean: 123.4 cm/sec LV V1 max P.7 mmHg Ao max P.9 mmHg LV V1 VTI: 19.9 cm Ao mean P.7 mmHg MARCELLUS(I,D): 1.7 cm2 Ao V2 VTI: 30.7 cm MARCELLUS(V,D): 1.6 cm2 sev ratio: 0.65 MARCELLUS indexed to BSA (cm^2/m^2): 0.98 MV E max jose eduardo: 94.5 cm/sec TR max jose eduardo: 212.5 cm/sec MV A max jose eduardo: 122.5 cm/sec TR max P.1 mmHg MV E/A: 0.77 PA V2 max: 101.0 cm/sec Med Peak E' Jose Eduardo: 4.8 cm/sec PA V2 mean: 77.7 cm/sec E/E' med: 19.6 PA mean P.6 mmHg Lat Peak E' Jose Eduardo: 5.4 cm/sec PA pr(Accel): 46.5 mmHg E/E' lat: 17.4 E/e' average: 18.5 MV dec time: 0.27 sec SV(LVOT): 50.8 ml Reading Physician:12:15 PM
[2023-06-14 04:50] LABS: INR 1.1 (0.9-1.3); Prothrombin Time 12.2 SECONDS (9.4-12.5)
--- NOTE | 2023-06-14 04:51 | PM.EVENT ---
Event Note Event Note (Rapid Response, Code, or fall): Code neuro was initiated because the patient developed left-sided facial droop and left arm weakness. CT angio of the head and neck pending. Spoke to teleneuro stroke team and recommended MRI in the morning, echo to rule out endocarditis and hold aspirin for now due to high risk of bleeding after embolic stroke from endocarditis. Morning labs still pending. Blood cultures and urine cultures pending. PT/OT/speech ordered. Placed on aspiration precaution. TSH and lipids ordered.
[2023-06-14 04:53] LABS: PTT Partial Thromboplastin Tim 31 SECONDS (25.1-36.5)
[2023-06-14 04:55] LABS: Cholesterol 154 mg/dL (140-199); HDL Cholesterol 44 mg/dL (40-60); LDL Cholesterol Calculated 79 mg/dL (<100); Triglycerides 154 mg/dL (35-150)
[2023-06-14 04:56] LABS: Alanine Aminotransferase 19 IU/L (<35); Albumin 3.7 g/dL (3.5-5.0); Albumin Globulin Ratio 1.1 (1.0-2.8); Alkaline Phosphatase 116 U/L (38-126); Aspartate Aminotransferase 32 IU/L (14-36); BUN Creatinine Ratio 25.7 (6-22); Bilirubin Total 0.7 mg/dL (0.2-1.3); Blood Urea Nitrogen 29 mg/dL (7-17); Calcium 8.6 mg/dL (8.4-10.2); Carbon Dioxide 18 mmol/L (22-32); Chloride 113 mmol/L (98-107); Estimated Glomerular Filt Rate 51 mL/min (>60); Globulin 3.3 g/dL (1.7-4.1); Glucose 81 mg/dL (80-110); HEMOLYSIS < 15 (0-50); Potassium 3.3 mmol/L (3.4-5.1); Sodium 142 mmol/L (137-145)
[2023-06-14] MEDS: SODIUM CHLORIDE 0.9% 1,000 ML 150 ML IV (05:21)
[2023-06-14] MEDS: POTASSIUM CHLORIDE IN WATER 10 MEQ/100 ML PIGGYBACK 100 MEQ IV ×4 (05:24→11:52)
[2023-06-14 05:36] VITALS: PULSE 150; RESP 26; O2SAT 94
[2023-06-14 05:50] LABS: Thyroid Stimulating Hormone 0.991 uIU/mL (0.47-4.68)
[2023-06-14 06:00] VITALS: BP 129/88; PULSE 110; RESP 16; TEMP 36.6; O2SAT 92
--- NOTE | 2023-06-14 07:23 | P.PN_ITS ---
Subjective Subjective Interval history: Patient still somnolent but improving today. She knows she is in the hospital. Per her she had a similar episode last time she stopped her home meds and was hospitalized at [facility] for a month. He says she was off her home meds this time for approx 4 days for her R toe surgery. He states her WBC is always high and she has seen hematology about it but no cause found. Exam Vital Signs (past 8 hours): - 06/14/23 05:36 06/14/23 06:00 Temperature 98 F Pulse Rate 150 H 110 H Respiratory Rate 26 H 16 Blood Pressure 129/88 Pulse Oximetry 92 Oxygen Flow Rate 0 Oxygen Delivery Method Room Air Oxygen Flow Rate 0 Narrative Exam Narrative: GEN: somnolent, oriented x1 HEENT: moist mucous membranes, PERRL NECK: trachea midline, no JVD CV: tachycardic, no murmurs PULM: clear bilaterally ABD: soft, nontender, nondistended, no organomegaly EXT: warm and well perfused with no edema NEURO: no focal deficits Objective Labs 06/14/23 04:30 06/14/23 04:30 Labs: Laboratory Results - last 24 hr 06/13/23 06/13/23 06/13/23 18:00 20:46 21:05 WBC 23.5 H RBC 4.18 Hgb 12.1 Hct 36.2 MCV 86.6 MCH 29.0 MCHC 33.5 RDW 13.9 Plt Count 442 H Neut % (Auto) 76.1 H Lymph % (Auto) 15.9 L Harrison % (Auto) 7.1 Eos % (Auto) 0.1 L Baso % (Auto) 0.8 Neut # (Auto) 45186 H Lymph # (Auto) 3700 Harrison # (Auto) 1700 H Eos # (Auto) 0 Baso # (Auto) 200 H PT 11.6 INR 1.0 APTT 30 Sodium 146 H 146 H Potassium 4.1 3.4 Chloride 109 H 115 H Carbon Dioxide 16 L 17 L BUN 38 H 35 H Creatinine 2.06 H 1.64 H Estimated GFR 25 L 33 L BUN/Creatinine Ratio 18.4 21.3 Glucose 99 86 Lactate 2.9 H 1.0 Calcium 10.2 8.6 Magnesium Total Bilirubin 0.7 AST 43 H ALT 25 Alkaline Phosphatase 151 H Total Protein 8.8 H Albumin 4.7 Globulin 4.1 Albumin/Globulin Ratio 1.1 Triglycerides Cholesterol LDL Cholesterol, Calc HDL Cholesterol Procalcitonin 0.09 TSH Urine Color Yellow Urine Appearance Clear Urine pH 5.5 Ur Specific [place] 1.020 Urine Protein Trace H Urine Glucose (UA) Negative Urine Ketones 1+ H Urine Occult Blood Negative Urine Nitrate Negative Urine Bilirubin Negative Urine Urobilinogen 0.2 Ur Leukocyte Esterase Negative Urine RBC None seen Urine WBC None seen Ur Squamous Epith Cells 0-1 /hpf Urine Bacteria None seen Ur Culture Indicated? Cult not indicated Vol Urine Centrifuged 10ml (spun) U Opiates 300ng/mL cut Positive H Ur Oxycodone Screen Positive H Urine Methadone Screen Negative Acetaminophen < 10 Ur Barbiturates Screen Negative U Tricyclic Antidepress Negative Ur Phencyclidine Scrn Negative Ur Amphetamines Screen Negative U Methamphetamines Scrn Negative Ur MDMA Scrn (Ecstasy) Negative U Benzodiazepines Scrn Negative Urine Cocaine Screen Negative U Marijuana (THC) Screen Negative Urine Specific [place] Ethyl Alcohol < 10 Ur Creatinine 06/13/23 06/14/23 21:05 04:30 WBC 12.5 H RBC 3.68 L Hgb 10.7 L Hct 32.8 L MCV 88.9 MCH 29.2 MCHC 32.8 RDW 14.2 Plt Count 326 Neut % (Auto) 75.0 Lymph % (Auto) 19.0 L Harrison % (Auto) 5.2 Eos % (Auto) 0.1 L Baso % (Auto) 0.7 Neut # (Auto) 9400 H Lymph # (Auto) 2400 Harrison # (Auto) 700 Eos # (Auto) 0 Baso # (Auto) 100 PT 12.2 INR 1.1 APTT 31 Sodium 142 Potassium 3.3 L Chloride 113 H Carbon Dioxide 18 L BUN 29 H Creatinine 1.13 H Estimated GFR 51 L BUN/Creatinine Ratio 25.7 H Glucose 81 Lactate Calcium 8.6 Magnesium 2.0 Total Bilirubin 0.7 AST 32 ALT 19 Alkaline Phosphatase 116 Total Protein 7.0 Albumin 3.7 Globulin 3.3 Albumin/Globulin Ratio 1.1 Triglycerides 154 H Cholesterol 154 LDL Cholesterol, Calc 79 HDL Cholesterol 44 Procalcitonin TSH 0.991 Urine Color Urine Appearance Urine pH Normal Ur Specific [place] Urine Protein Urine Glucose (UA) Urine Ketones Urine Occult Blood Urine Nitrate Urine Bilirubin Urine Urobilinogen Ur Leukocyte Esterase Urine RBC Urine WBC Ur Squamous Epith Cells Urine Bacteria Ur Culture Indicated? Vol Urine Centrifuged U Opiates 300ng/mL cut Ur Oxycodone Screen Urine Methadone Screen Acetaminophen Ur Barbiturates Screen U Tricyclic Antidepress Ur Phencyclidine Scrn Ur Amphetamines Screen U Methamphetamines Scrn Ur MDMA Scrn (Ecstasy) U Benzodiazepines Scrn Urine Cocaine Screen U Marijuana (THC) Screen Urine Specific [place] Normal Ethyl Alcohol Ur Creatinine Normal PFSH Medical History Eczema Hypothyroidism (acquired) Bipolar disorder Hypertension Surgical History Hx of cholecystectomy Family History Mother Alcohol abuse Father CVA (cerebral vascular accident) Social History household members: spouse Smoking Status: Never smoker alcohol intake: former Assessment & Plan Assessment & Plan narrative: # acute metabolic encephalopathy -Etiology unclear. Suspect medication withdrawal versus opiate OD. Will monitor her mentation and avoid any mediations potentially affecting mentation. -patient mentation now clearing up and she is responding to questions but still not fully oriented -MRI negative for stroke # Acute kidney injury, improving -Presented with creatinine 1.64, baseline between 0.8-1. Most likely pre-renal. -continue with IV fluid hydration. -monitor UOP. -daily BMP -Avoid any nephrotoxic agents, including NSAIDs -Continue to monitor BP. Avoid drastic lowering of blood pressure in order to maintain a good renal perfusion -Dose all medications according pt's current eGFR # Leukocytosis, chronic -per has seen hematology for chronic WBC elevation and no cause found -UA is negative. Given ceftriaxone 2 g IV in the ED. Continue for now and follow-up on the urine culture and blood culture. -if BCx negative will stop abx # Hypertension. -Continue amlodipine # Hyperlipidemia. -Continue Lipitor # Bipolar disorder. -Continue Seroquel and trazodone. Ativan as needed. # Chronic pain. -home oxy PRN Code status is full code. DVT prophylaxis with heparin. Proxy is spouse Britton. I have reviewed home meds and used all available resources to reconcile the home meds. Dispo: Pending improvement in VELASQUEZ, AMS. 1-2 days. Time Spent With Patient Time with patient: 50 to 69 minutes with 50% spent counseling/coordinating care Quality VTE Deep Vein Thrombosis/Pulmonary Embolism Present on Admission: No
--- NOTE | 2023-06-14 07:39 | DI.MRI.S_ITS ---
PROCEDURE: MR HEAD/BRAIN WO CON INDICATIONS: Clinical concern for acute stroke TECHNIQUE: Non-contrast axial T1 spin echo, axial T2 fast spin echo, sagittal and axial FLAIR, coronal T2 fast spin echo, axial gradient echo, axial diffusion and ADC through the brain. COMPARISON: [facility], CT, CT HEAD/BRAIN WO CON, 06/13/2023, 19:28. [facility], CT, CT HEAD/BRAIN WO CON, 06/13/2023, 19:28. [facility], CT, CT HEAD/BRAIN WO CON, 06/14/2023, 3:39. [facility], CT, CT ANGIO HEAD AND NECK, 06/14/2023, 4:07. [facility], MR, MR HEAD/BRAIN WO/W CON, 07/21/2021, 9:20. FINDINGS: Image quality: Diagnostic, with note made of motion artifact. CSF spaces: Ventricles appear symmetric in size and shape. Basal cisterns are patent. No extra-axial fluid collections. Brain: No intracranial bleeds or mass effects. There is cerebral volume loss for age. There are periventricular and deep white matter chronic small vessel ischemic changes. Brainstem appears normal. Diffusion-weighted images show no acute infarct. No chronic ischemic insults. Normal intravascular flow voids are present. Skull and face: Calvarial bone marrow is normal in signal. Orbits are normal. Sinuses: Sinuses and mastoids are clear. Is IMPRESSION: No findings of acute or subacute infarction can be seen. Dictated by: Zac Ch M.D. on 06/14/2023 at 14:04 Approved by: Zac Ch M.D. on 06/14/2023 at 14:06
[2023-06-14 08:15] VITALS: BP 148/78; PULSE 111; RESP 16; TEMP 36.2; O2SAT 97
[2023-06-14] MEDS: HYDROMORPHONE 0.5 MG INJ IV ×3 (09:30→15:34)
[2023-06-14] MEDS: HEPARIN 5,000 UNIT/ML VIAL 5000 UNIT SUBCUT ×2 (09:32→20:38)
--- NOTE | 2023-06-14 09:35 | PT.IIE ---
Current Diagnoses Acute kidney failure, unspecified (06/13/23) Surgical History (Last Reviewed 03/01/23 @ 15:12 by Rohit Melendez DO) Hx of cholecystectomy Medical History (Last Reviewed 06/14/23 @ 00:56 by Miguel eBal DO) Bipolar disorder Eczema Hypertension Hypothyroidism (acquired) Physical Therapy Inpatient Evaluation/Re-Eval M1 PT/OT-IP Prior Functional Status Start: 06/14/23 12:36 Freq: NEEDED Status: Active Protocol: Document 06/14/23 09:35 AB (Rec: 06/14/23 13:07 AB [id number]) Medical Review Prior Functional Status Medical History Reviewed Yes Communication inconsistent with following directions and answering questions. Mobility and Gait obtained PLOF and home set up from spouse: stated that pt was modified independent with all mobilities and ambulation using a 4WW (started ~ 3 months ago due to BLE weakness ); pt had been receiving HHPT and OT Social History Household Members spouse Living Arrangements Apartment/Condo Number of Floors (Floors) One Floor Number of Stairs To Enter/Railing? 3 steps L rail ascending to enter Home Environment Standard Height Toilet,Tub/ Shower Home Equipment Four Wheel Walker,Tub Transfer Bench,Hand Held Shower M2 PT-IP Current Condition Start: 06/14/23 12:36 Freq: NEEDED Status: Active Protocol: Document 06/14/23 09:35 AB (Rec: 06/14/23 13:07 AB [id number]) Physical Therapy Current Condition Current Condition Evaluation Date 06/14/23 Treatment Diagnosis AMS; dehydration; VELASQUEZ; difficulty in walking Onset Date 06/13/23 M3 PT-IP Subjective Start: 06/14/23 12:36 Freq: NEEDED Status: Active Protocol: Document 06/14/23 09:35 AB (Rec: 06/14/23 13:07 AB [id number]) Subjective Physical Therapy Visit Type Type Initial Evaluation Visit Start Time 09:35 Visit Stop Time 12:58 Notes pt seen for split visits: 935- [phone] and [id number] 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 of 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 Visits 0 Therapy Pain Assessment Location Generalized Scale Used pain scale not stated but screams when moved Pain Management Techniques Distraction,Modification of Treatment M4 PT-IP Mobility and Gait Start: 06/14/23 12:36 Freq: NEEDED Status: Active Protocol: Document 06/14/23 09:35 AB (Rec: 06/14/23 13:07 AB [id number]) PT-Bed Mobility Assessment Supine to Sit Supine to Sit Maximum Assistance,1 Person Assistance,2 Person Assistance ,Head of Bed Elevated,Bedrails PT-Transfer Assessment Sit to and From Stand Sit to and from Stand Maximum Assistance,2 Person Assistance,Use of Upper Extremities Equipment Transfer Assistive Device Gait Belt,Front Wheeled Walker Orthotic/Prosthetic Devices or Brace: No Transfers Transfer Destination Chair Transfer Technique Stand Step Pivot Transfer Ability Level of Assist Maximum Assistance,2 Person Assistance,Use of Upper Extremities Comments Mobility Comments pt supine in bed and needs constant cues to keep her eyes open. pt with confusion and cognitive issues affecting following directions. pt needs to be cleaned up/brief change and bed sheets change. asked NAC to assist. pt completed supine to sit max a x 1-2 and max cues. max A for sitting balance. pt tends to grab on to PT for support and had difficulty following directions. increase trunk retrolean in sitting and unable to maintain body position after PT repositioned and instructed pt. pt completed sit to stand from EOB max A x 2 and ma xcues . max A for standing balance using FWW for support while nurse assisted pt with hygiene care and brief change. pt completed step transfer to chair max A x 2 and max cues. positioned pt on the chair. call light and table placed within reach. talked to spouse in room to obtain PLOF and home set up due to pt unable to provide any info. Gait Assessment Comments Gait Comments unable at this time PT-Balance Assessment Sitting Balance and Reactions Static Sitting Balance Ability Poor Dynamic Sitting Balance Ability Poor Standing Balance and Reactions Static Standing Balance Ability Poor Dynamic Standing Balance Ability Poor Device Used FWW M5 PT-IP Objective Assessments Start: 06/14/23 12:36 Freq: NEEDED Status: Active Protocol: Document 06/14/23 09:35 AB (Rec: 06/14/23 13:07 AB [id number]) Orientation Orientation/Cognition Level of Alertness Confusional State Orientation Name Safety Awareness Decreased Safety Awareness Gross Range of Motion Lower Extremity ROM Assessment Within Functional Limits Strength Comments Strength Comments unable to do MMT cue to pt unable to follow directions M6 PT-IP Treatment Start: 06/14/23 12:36 Freq: NEEDED Status: Active Protocol: Document 06/14/23 09:35 AB (Rec: 06/14/23 13:07 AB [id number]) Physical Therapy Treatment Education Education Provided Safety M7 PT-IP Assessment and Plan Start: 06/14/23 12:36 Freq: NEEDED Status: Active Protocol: Document 06/14/23 09:35 AB (Rec: 06/14/23 13:07 [id number]) PT Summary Assessment and Plan Potential Rehabilitation Potential Fair Status of Condition at Evaluation Evolving Summary Impairments Pain,ROM,Strength,Balance, Coordination,Sensation,Tone, Cognition,Bed Mobility, Transfers,Gait,Activity Tolerance Assessment Summary pt is a 73 y/o F who presented to the ED for AMS. pt admitted for AMS, dehydration and VELASQUEZ. pt also has incidence of L sided facial droop while here in the hospital. pt has recent R foot sx and now has post-op shoe on. pt requiring max a x 2 with mobility and unable to ambulate at this time. pt requires max cues with all tasks and will need 26/11 2 person assist. Pt will need SNF rehab to improve overall mobility. spouse with spouse regarding SNF and agreed if needed. Goals Bed Mobility Goal Minimal Assistance Transfer Goal Minimal Assistance,Front Wheeled Walker Gait Goal Minimal Assistance,Front Wheel Walker Gait Distance 50 Other Goals improve bed mobility, transfers, ambulation using FWW/4WW 150 ft SBA up/down 3 steps L rail ascending SBA Days to Meet Goals 10 Frequency of Treatment Frequency Of Treatment Once a Day Treatment Plan Physical Therapy Treatment Plan Bed Mobility Training,Transfer Training,Gait Training, Therapeutic Exercise,Balance Retraining,Discharge Planning, Hot or Cold Pack,Neuromuscular Re-ed,Coordination Retraining ,Manual Therapy Recommendations To Nursing Amount of Assist Needed 2 Person Assist Discharge Recommendations PT Discharge Recommendations SNF Rehab Equipment Needed for Home Before FWW if pt goes home and not Discharge safe with 4WW Transportation Needs at Discharge Wheelchair/Cabulance,Stretcher /Ambulance
[2023-06-14 12:00] VITALS: BP 119/50; PULSE 91; RESP 18; TEMP 36.3; O2SAT 100
--- NOTE | 2023-06-14 12:38 | CM.DANOTE ---
Initial DCP Assessment Visit Note Reviewed EMR and team rounds for pt's medical status and initial anticipated d/c needs. Met with pt's spouse in the conference room to obtain her PMH and discuss her current status and preferences for d/c. Pt is unable to respond verbally other than yes/no, and presents as mostly obtunded at this time. Payor: Medicare PCP: Dagmar Candisedita Pt is a 73 year-old F who presented to the ED last evening via EMS with altered mental status for the last 24-hours. She had surgery 2-days ago on her right foot, seemed okay for about 24-hours, then began to decline steadily. Spouse said that she was found to be wandering without intention around the house, was less responsive, acting abnormally. She had also not had her medications for the last several days, per spouse, stating that he forgot about them. Spouse states pt is usually independent at baseline, does not drive due to left-knee pain, but that this is a significant change in mental status. ED eval showed her to be in clinical dehydration, tachycaradia, and was agitated. She was started on IV fluids and given a dose of lorazapam for the agitation, which showed immediate benefit. Last night, pt had an event indicative of a stroke, given she developed rapid onset left-sided facial droop and left arm weakness. Brain MRI is pending, pt had an ECHO earlier today. She was also found to have a high white blood cell count, so was started on 2-doses of IV ABO's in the ED, then admitted to the floor for further eval/tx. PT/OT evals/recommendations are pending. Per pt's spouse, his preference is for pt to return home at d/c w/HH. They have worked with Sharlene CH[facility]VE[facility] in the past. DCP will continue to follow and assist with evolving care plan/needs for d/c. Discharge Planning/Care Management CM Discharge Assessment Start: 06/14/23 10:38 Freq: Status: Active Protocol: Document 06/14/23 10:38 DPL (Rec: 06/14/23 10:58 DPL [id number]) Discharge Planning Assessment Assigned Web Editor CRUZ Henning Advance Directives? No Advance Directives on File No History Provided By Medical Record Expected Length of Stay 3 Has Patient been admitted in last 30 No days? Prior Living Arrangements House Household Members spouse Independent with ADL's Yes Is patient alert and oriented? Yes Caregiver for Another No Comment Pending PT/OT eval and recommendations, as well as brain MRI and ECHO results. Barriers to Discharge No Comment Pending needs. Discharge Plan Home Transportation Arrangement Pending Whiteboard Updated in Patient Room with Yes name and ext. # of Web Editor Review Status In Process Please Provide Date Initial DC 06/14/23 Assessment Was Performed
--- NOTE | 2023-06-14 13:01 | ST.IPIE ---
Visit Care Team Role Provider Type REBECA Garcia Primary Care Provider Non-Staff Specialty: Medical Address: [address] [place] [address], [phone] Email: Miguel Beal DO Emergency Provider Physician Referring Provider Specialty: Emergency Medicine Address: [address] [place] [address], [phone] Email: [email or web address] Admit Provider Physician Attending Provider Specialty: Internal Medicine Address: [address] [place] [address], [phone] Fax: Email: [email or web address] [email or web address] Acute kidney failure, unspecified (06/13/23) Past Medical History (Last Reviewed 06/14/23 @ 00:56 by Miguel Beal DO) Bipolar disorder (Medical) Eczema (Medical) Hypertension (Medical) Hypothyroidism (acquired) (Medical) ST IP 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 Batista Reason for Referral Suspected CVA Setting Assessment Location Acute Care Visit Type Note Type Initial evaluation Next Note Type Next Note Type Treatment Note Patient Information Identification Type Wristband History Per H&P: 73 years old female with history of hypertension, hyperlipidemia, hypothyroidism , bipolar disorder, depression , history of opiate overdose with multiple admissions for hyponatremia, presented to the ER with altered mental status /confusion in the last several days. The patient had right toe surgery 3 days ago and was fine. After the surgery her medications were held and she became increasingly confused. The patient is poor historians but denies any pain . In the ER she was given Ativan and she responded well and became more responsive. She is currently on quetiapine , lorazepam as needed. 5, creatinine 1.64, procalcitonin 0.09, lactic acid 1, U tox positive for opioids and oxycodone, CT of the head unremarkable. Pt referred for ST evaluation d/t suspected CVA in order to determine safest and most efficient least restrictive diet. Subjective Observations Pt laying in bed on side upon ST entry into room. Nursing and DIRECTOR CALL adjusted Pt upright in bed for PO trials. Pt is nonverbal and mostly communicated with screams and noises. Pt cognitive deficits impacted ability to follow directions during evaluation. DIRECTOR CALL provided oral care prior to PO trials. Reported by Patient/Caregiver Current Diet NPO The IDDSI Framework Protocol: IDDSI.1 Objective Assessment Mental Status Alert,Confused,Lethargic Oral Integrity WFL Dentition Upper dentures/partials,Lower dentures/partials Lip Function Moderate impairment Observation of Lips at Rest Left sided weakness/Drooping Comment Pt unable to participate in formal oral motor exam given cognitive deficits impacting ability to follow directions and Pt lethargic. However, Pt with left sided facial droop and upper dentures in place. Food and Liquid Trials Position During Assessment Upright (90 degrees) Liquids Trialed Thin (IDDSI 0) Solid Trials Purred (IDDSI 4) Administration Type Tea spoon,Cup single sip,Straw ,Dependent feeding Oral Impairment Moderately impaired Oral Phase Comments Pt presented with thin water via tsp, single cup sips, and straw and 4 oz of pudding via tsp. For thin water via tsp Pt demonstrated left sided spillage, extended ap transport. For thin water via straw, Pt demonstrated adequate suction, extended ap transport, suspected loss of bolus resulting in premature spillage. For thin water via cup Pt demonstrated occasional left sided spillage. For pudding Pt demonstrated reduced oral cavity opening, prolonged bolus manipulation, extended ap transport, mild oral stasis, mild left sided spillage. Pharyngeal Impairment Mildly impaired Pharyngeal Phase Comments For thin water via tsp and cup Pt demonstrated suspected delay in swallow, however no overt s/s of aspiration. For thin water via straw Pt demonstrated suspected delay in swallow, weak laryngeal elevation, cough x1, audible swallow reflex. For pudding Pt demonstrated no overt s/s of aspiration. Fatigue/Endurance Mild fatigue The IDDSI Framework Protocol: IDDSI.1 Findings Swallowing Function Oropharyngeal phase dysphagia Severity of Swallow Impairment Moderately impaired Contributing Factors to Swallow Reduced alertness or attention Impairment ,Difficulty following directions Prognosis Fair Based on Cognitive status Comment Pt presents with mod oral phase dysphagia and suspected mild/mod pharyngeal phase dysphagia Impact on Safety and Functioning Risk for aspiration Recommendations Instrumental Assessment No Swallowing Treatment Yes Frequency Daily while inpatient Recommended Solids Pureed (IDDSI 4) Recommended Liquids Thin (IDDSI 0) Other Recommendations ST recommends IDDSI 4/IDDSI 0- NO straws wit the below mentioned safe swallowing strategies in place. ST communicated recommendations with MD and nursing. ST recommends Pt only be fed when awake and alert and sitting upright and presented with thin liquids via small cup sips. ST recommends no safe PO diet if change in medical status occurs. Safety Precautions/Swallowing Supervision needed for all Recommendations meals,Feed only when alert, Upright position at least 30 minutes after meals,Small bites and sips when eating, Slow rate; swallow between bites,No straw,Alternate liquids and solids,1 to 1 feeding assistance,Strict oral care after intake,Check for pocketing Medication Recommendations As Tolerated Education Patient/Caregiver Education Family/caregivers require further education/training Goals Short-term Goals STG 1: Patient will tolerate IDDSI 4 with no clinical s/s of dysphagia 100% of the time in order to consume least restrictive diet. STG 2: Patient will tolerate thin liquids- no straws with no clinical s/s of aspiration 100% of the time in order to consume least restrictive diet . Long-term Goals LTG: Patient will tolerate safest and most efficient diet with no clinical s/s of aspiration or dysphagia 100% of the time in order to consume least restrictive diet .
--- NOTE | 2023-06-14 13:41 | OT.IPNOTE ---
Attempted OT eval and pt just gotten back to bed. Pt able to state her last name and states she just wanted to rest. No charge.
[2023-06-14 16:00] VITALS: BP 165/72; PULSE 107; RESP 18; TEMP 36.4; O2SAT 100
[2023-06-14] MEDS: ACETAMINOPHEN 325 MG TABLET 650 MG PO (16:17)
[2023-06-14] MEDS: methocarbamoL 500 MG TABLET PO (16:18)
[2023-06-14] MEDS: OXYCODONE IR 5 MG TABLET PO (19:57)
[2023-06-14 20:15] VITALS: BP 148/76; PULSE 104; RESP 18; TEMP 35.9; O2SAT 98
[2023-06-14] MEDS: cefTRIAXone 2,000 MG in SODIUM CHLORIDE 0.9% 100 ML 200 MG IV (20:38)
[2023-06-14] MEDS: ATORVASTATIN 20 MG TABLET PO (20:38)
[2023-06-14] MEDS: AMLODIPINE 5 MG TABLET 10 MG PO (20:38)
[2023-06-14] MEDS: QUETIAPINE 100 MG TABLET 300 MG PO (20:38)
[2023-06-14] MEDS: LORazepam 1 MG TABLET 0.5 MG PO (22:14)
[2023-06-15 00:34] VITALS: BP 112/70; PULSE 125; RESP 18; TEMP 36.4; O2SAT 97
[2023-06-15] MEDS: LORazepam 2 MG/ML INJ 0.25 MG IV (03:05)
--- NOTE | 2023-06-15 04:00 | PC.NURSE ---
R toe dressing changed. Cleaned with normal saline, xeroform placed with non adherent pad on top and wrapped with kerlix and sanchez wrap. Oxy 5 given after for pain.
[2023-06-15] MEDS: OXYCODONE IR 5 MG TABLET PO ×2 (04:16→10:05)
[2023-06-15 04:25] VITALS: BP 128/71; PULSE 117; RESP 18; TEMP 36.4; O2SAT 100
[2023-06-15] MEDS: LEVOTHYROXINE 75 MCG TABLET PO (05:40)
[2023-06-15] MEDS: PANTOPRAZOLE DR 20 MG TABLET PO (05:40)
--- NOTE | 2023-06-15 07:50 | PC.NURSE ---
Addendum entered by Ramy Gonzalez R.N. 06/15/23 14:11: Pt d/c'd to care of . Care instructions given to both and patient. Pt's IV d/c'd per protocol. Pt and escorted to family car via w/c with Kiko Lee Addendum entered by Ramy Gonzalez R.N. 06/15/23 10:21: at bedside. Pt wants to walk. Boot applied to right foot. Gait belt, one person assist. Walked out to main nurses station. In w/c presently. Addendum entered by Ramy Gonzalez R.N. 06/15/23 09:59: Up to chair for short period, back to bed with 1 person assist. Wearing boot when up. Original Note: Pt is awake and alert, oriented times 1. Per noc report Pt didn't sleep well throughout the night. Pt follows commands, reoriented and settles fairly easily though needs encouragement. RN sitting close to room to assist easing Pt's anxiety. Toe/Fooot dressing CDI.
[2023-06-15 08:00] VITALS: BP 123/70; PULSE 104; RESP 16; TEMP 36.2; O2SAT 98
[2023-06-15] MEDS: HEPARIN 5,000 UNIT/ML VIAL 5000 UNIT SUBCUT (09:09)
--- NOTE | 2023-06-15 11:15 | PT.IPTN ---
Current Diagnoses Acute kidney failure, unspecified (06/13/23) Physical Therapy Treatment Note M2 PT-IP Current Condition Start: 06/14/23 12:36 Freq: NEEDED Status: Active Protocol: Document 06/14/23 09:35 AB (Rec: 06/14/23 13:07 AB [id number]) Physical Therapy Current Condition Current Condition Evaluation Date 06/14/23 Treatment Diagnosis AMS; dehydration; VELASQUEZ; difficulty in walking Onset Date 06/13/23 M3 PT-IP Subjective Start: 06/14/23 12:36 Freq: NEEDED Status: Active Protocol: Document 06/15/23 11:39 TS (Rec: 06/15/23 12:02 TS [id number]) Subjective Physical Therapy Visit Type Type Treatment Note Visit Start Time 11:15 Visit Stop Time 11:35 Notes Spouse in room Number of SECURITIES ADVISER Visits 1 Physical Therapy Visit Comments Patient Comments Pt found resting in bed, spouse in room. Pt reports she is not doing well and wants to go home. She is confused but is able to answer questions from therapist. pt is agreeable to PT. M4 PT-IP Mobility and Gait Start: 06/14/23 12:36 Freq: NEEDED Status: Active Protocol: Document 06/15/23 11:39 TS (Rec: 06/15/23 12:02 TS [id number]) PT-Bed Mobility Assessment Supine to Sit Supine to Sit Contact Guard Assistance,1 Person Assistance Sit to Supine Sit to Supine Standby Assistance,1 Person Assistance Scooting Scooting to Edge of Bed Contact Guard Assistance PT-Transfer Assessment Sit to and From Stand Sit to and from Stand Contact Guard Assistance,1 Person Assistance,Use of Upper Extremities Equipment Transfer Assistive Device Gait Belt,Front Wheeled Walker Orthotic/Prosthetic Devices or Brace: No Comments Mobility Comments Supine to sit from flat bed CGA, pt comes up on BUE's to scoot to EOB. Pt sat EOB for donning of shoe CGA, pt grasps onto spouse due to fear of falling, therapist cued pt to support self with UE's on bed. She performed STS from bed with FWW CGA, pt becomes increasingly upset but agreed to ambulate. She ambulated in room ~20' CGA from spouse and use of FWW. Pt sat back on bed , continues to be emotional and stating she wants to go home. She performed STS x2 with FWW CGA, sidestepped to HOB x6 CGA with use of FWW and max cues for steps. Sit to supine SBA with BUE support and no cues. Pt was left in bed, spouse in room, RN notified. Gait Assessment Gait Gait Assistance Required: Contact Guard Assist,1 Person Assist Distance (Feet) 20 Assistive Devices Assistive Device Front Wheeled Walker Orthotic/Prosthetic Devices or Brace: No Gait Deviations General Gait Pattern Step-to Gait Factors Limiting Gait Function Factors Limiting Gait Function Decreased Activity Tolerance, Decreased Strength,Difficulty Following Directions,Poor Balance,Poor Safety Awareness Stair Climbing Assessment Comments Stair Climbing Comments Did not attempt this session. PT-Balance Assessment Sitting Balance and Reactions Static Sitting Balance Ability Fair Dynamic Sitting Balance Ability Fair Standing Balance and Reactions Static Standing Balance Ability Fair Dynamic Standing Balance Ability Fair Device Used FWW M5 PT-IP Objective Assessments Start: 06/14/23 12:36 Freq: NEEDED Status: Active Protocol: Document 06/14/23 09:35 AB (Rec: 06/14/23 13:07 AB [id number]) Orientation Orientation/Cognition Level of Alertness Confusional State Orientation Name Safety Awareness Decreased Safety Awareness Gross Range of Motion Lower Extremity ROM Assessment Within Functional Limits Strength Comments Strength Comments unable to do MMT cue to pt unable to follow directions M6 PT-IP Treatment Start: 06/14/23 12:36 Freq: NEEDED Status: Active Protocol: Document 06/15/23 11:39 TS (Rec: 06/15/23 12:02 TS [id number]) Physical Therapy Treatment Education Education Provided Safety M7 PT-IP Assessment and Plan Start: 06/14/23 12:36 Freq: NEEDED Status: Active Protocol: Document 06/15/23 11:39 TS (Rec: 06/15/23 12:02 TS [id number]) PT Summary Assessment and Plan Potential Rehabilitation Potential Fair Summary Impairments Pain,ROM,Strength,Balance, Coordination,Sensation,Tone, Cognition,Bed Mobility, Transfers,Gait,Activity Tolerance Progress Towards Goals Progressing Toward Goals Assessment Summary Camilla is making progress with her mobility this session . She continues to have confusion but can follow single step instructions well. She performed supine to sit CGA with BUE support. She performed STS x3 CGA with FWW and assist from spouse. She progressed her gait to ~20' CGA with use of FWW. PT is recommending pt return home with 24/7 support from spouse. Goals Bed Mobility Goal Minimal Assistance Transfer Goal Minimal Assistance,Front Wheeled Walker Gait Goal Minimal Assistance,Front Wheel Walker Gait Distance 50 Other Goals improve bed mobility, transfers, ambulation using FWW/4WW 150 ft SBA up/down 3 steps L rail ascending SBA Days to Meet Goals 10 Frequency of Treatment Frequency Of Treatment Once a Day Treatment Plan Physical Therapy Treatment Plan Bed Mobility Training,Transfer Training,Gait Training, Therapeutic Exercise,Balance Retraining,Discharge Planning, Hot or Cold Pack,Neuromuscular Re-ed,Coordination Retraining ,Manual Therapy Recommendations To Nursing Amount of Assist Needed 1 Person Assist Discharge Recommendations PT Discharge Recommendations Home with 24/ Assist Available,Home Health Equipment Needed for Home Before FWW if pt goes home and not Discharge safe with 4WW Transportation Needs at Discharge Private Vehicle,Wheelchair/ Cabulance
--- NOTE | 2023-06-15 12:26 | PM.DS.1 ---
History of Present Illness History of Present Illness Chief complaint: Altered mental status Narrative: 73 years old female with history of hypertension, hyperlipidemia, hypothyroidism, bipolar disorder, depression, history of opiate overdose with multiple admissions for hyponatremia, presented to the ER with altered mental status/confusion in the last several days. The patient had right toe surgery 3 days ago and was fine. After the surgery her medications were held and she became increasingly confused. The patient is poor historians but denies any pain. In the ER she was given Ativan and she responded well and became more responsive. She is currently on quetiapine, lorazepam as needed. 5, creatinine 1.64, procalcitonin 0.09, lactic acid 1, U tox positive for opioids and oxycodone, CT of the head unremarkable. Discharge Providers Provider Date of admission: 06/13/23 21:12 Discharge Date: 06/15/23 Primary care physician: REBECA Garcia Consults: 06/13/23 22:01 Consult to Discharge Planning Routine Comment: Consult to Physical Therapy Evaluate & Treat Comment: Physician Instructions: Evaluate and Treat 06/14/23 04:45 Consult to Discharge Planning Routine Comment: Consult to Occupational Therapy Evaluate & Treat Comment: Physician Instructions: Evaluate and treat Consult to Physical Therapy Evaluate & Treat Comment: Physician Instructions: Evaluate and Treat Consult to Speech Therapy Evaluate & Treat Comment: Physician Instructions: Evaluate and treat 06/15/23 12:07 Consult to Home Health Routine Comment: PT, OT, RN Reason For Exam: Home Health Services Discharge provider: Kt Calderon DO Summary Hospital Course Discharge Diagnosis: # acute metabolic encephalopathy, improving -Etiology unclear. Suspect medication withdrawal versus opiate OD. Will monitor her mentation and avoid any mediations potentially affecting mentation. -patient mentation now clearing up and she is responding to questions but still not fully oriented -MRI negative for stroke -patient's mentation now near baseline but she waxes and wanes per , he is ok taking her home with # Acute kidney injury, improving -Presented with creatinine 1.64, baseline between 0.8-1. Most likely pre-renal. -continue with IV fluid hydration. -monitor UOP. -daily BMP -Avoid any nephrotoxic agents, including NSAIDs -Continue to monitor BP. Avoid drastic lowering of blood pressure in order to maintain a good renal perfusion -Dose all medications according pt's current eGFR -Cr downtrending to near normal # Leukocytosis, chronic -per has seen hematology for chronic WBC elevation and no cause found -UA is negative. Given ceftriaxone 2 g IV in the ED. Continue for now and follow-up on the urine culture and blood culture. -BCx negative at 24 hours, will stop abx # Hypertension. -Continue amlodipine # Hyperlipidemia. -Continue Lipitor # Bipolar disorder. -Continue Seroquel and trazodone. Ativan as needed. # Chronic pain. -home oxy PRN Hospital Course: Admitted for acute metabolic encephalopathy and VELASQUEZ. Thought to be due to medication withdrawal after she held her benzos and seroquel for toe correction surgery. Patient given ativan and improved. Her ativan was tapered and she became alert and oriented x2. VELASQUEZ improved with IVF. Patient cleared for home with PT. Home medications resumed. Exam Vital Signs (past 8 hours): - 06/15/23 08:00 Temperature 97.2 F L Pulse Rate 104 H Respiratory Rate 16 Blood Pressure 123/70 Pulse Oximetry 98 Oxygen Delivery Method Room Air Oxygen Flow Rate 0 Narrative Exam Narrative: GEN: alert and awake, now oriented x2 HEENT: moist mucous membranes, PERRL NECK: trachea midline, no JVD CV: tachycardic, no murmurs PULM: clear bilaterally ABD: soft, nontender, nondistended, no organomegaly EXT: warm and well perfused with no edema NEURO: no focal deficits Objective Labs 06/14/23 04:30 06/14/23 04:30 PFSH Medical History Eczema Hypothyroidism (acquired) Bipolar disorder Hypertension Surgical History Hx of cholecystectomy Family History Mother Alcohol abuse Father CVA (cerebral vascular accident) Social History household members: spouse Smoking Status: Never smoker alcohol intake: former Discharge Plan Discharge Plan Patient Disposition: Home Health Service Discharge orders & Medications Prescriptions: Continued levothyroxine [Synthroid] 75 mcg Tablet 75 mcg PO DAILY@0600 Qty: 30 0RF lorazepam 1 mg tablet 0.5 mg PO 3XD Calcium 500 500 MG 1 tab PO BEDTIME amlodipine 10 mg Tablet 10 mg PO BEDTIME quetiapine 300 mg Tablet 300 mg PO BEDTIME metoclopramide HCl [Reglan] 10 mg tablet 10 mg PO Q6H PRN (Reason: nausea and vomiting) Qty: 14 0RF atorvastatin 20 mg tablet 20 mg PO BEDTIME betamethasone dipropionate 0.05 % cream 0.05 applic topical BID Patient Comments: Apply topically 2 (two) times a day oxycodone 5 mg Tablet 5 mg PO TID PRN (Reason: pain) ondansetron 4 mg tablet,disintegrating 4 mg PO Q8H PRN (Reason: nausea and vomiting) Qty: 14 0RF Patient Comments: Pt spouse stating that pt has never taken medication since post sx Follow up/Referrals: Dagmar Perdue ARNP [Primary Care Provider] - 2 Weeks Visit Report/Discharge Packet Stand Alone Forms: Patient Portal/API, Stroke Signs & Symptoms Discharge Data Primary Care Provider: Dagmar Perdue Quality VTE Deep Vein Thrombosis/Pulmonary Embolism Present on Admission: No
--- NOTE | 2023-06-15 12:27 | CM.DPC ---
Addendum entered and electronically signed by CRUZ Escobar 06/15/23 13:02: Faxed Sharlene CHÁVEZ the signed discharge summary. Original Note: DCP Cont. Reviewed EMR and team rounds for status updates. Plan is for pt to d/c home today w/spouse assistance. Spouse will also transport. Faxed Sharlene CHÁVEZ clinicals and F/F. No further DCP needs identified at this time.
== END 2023-06-15 13:30 | disposition home health service (06) | DRG 682 ==
LOC: ED 21:11 → AC 21:12
PROVIDERS: Emergency Medicine; Admitting Provider Internal Medicine; Emergency Provider Emergency Medicine; PCP Nurse Practitioner Family; Referring Provider Emergency Medicine; Visit Provider Internal Medicine
DX: N17.9 Acute kidney failure, unspecified (principal); G93.41 Metabolic encephalopathy; F19.239 Other psychoactive substance dependence with withdrawal, unspecified; I10 Essential (primary) hypertension; E78.5 Hyperlipidemia, unspecified; F31.9 Bipolar disorder, unspecified; E86.0 Dehydration; G89.29 Other chronic pain; R29.810 Facial weakness; E03.9 Hypothyroidism, unspecified
CPT/HCPCS: 36415; 70450; 70496; 70498; 70551; 80048; 80053; 80061; 80305; 80320; 80329; 81001; 82962; 83605; 83735; 84145; 84443; 85025; 85610; 85730; 87040; 92610; 93005; 93010; 96361; 96365; 96375; 97162; 97530; 99285; C8929; G0480; J0696; J1170; J1644; J2060; Q9957; Q9967

== ENCOUNTER 2023-06-21 17:46 | Inpatient (IN) | payer MEDICARE, SELFPAY ==
[2023-06-13 21:41] VITALS: BMI 27.4
[2023-06-21] VITALS (11 sets, daily range): BP systolic 78–163; BP diastolic 48–67; PULSE 71–108; RESP 10–24; TEMP 36.6; O2SAT 90–100; BMI 25.6
--- NOTE | 2023-06-21 17:55 | PC.NURSE ---
Pt screaming repetitively my legs hurt, hyperventilating, advised to health coach breathing. Appears to be having a manic episode with h/o bipolar.
--- NOTE | 2023-06-21 18:22 | ED_ITS ---
HPI - Psych General Chief Complaint: Psychiatric Symptoms Stated Complaint: Screaming,yelling and manic,hx bipolar Time Seen by Provider: 06/21/23 18:21 Source: patient and EMS Mode of arrival: EMS History of Present Illness HPI Narrative: 73-year-old woman with a history of bipolar disorder, depression, hypertension, hyperlipidemia, hypothyroidism who underwent right bunion surgery on June 11. She was seen in the emergency department on June 14 with acute metabolic encephalopathy and acute kidney injury. She was admitted overnight, given fluids, postoperative pain p seemed to be better controlled at time of discharge. She has been off her quetiapine since likely June 08 (stopped 3 days prior to surgery) and it does not sound like this has been able to be restarted. She has been having increasing confusion, acting out, complaints of severe pain from her foot, not taking any of her medications and increasing behavioral difficulties. On arrival in the emergency department she is screaming with pain and other unintelligible complaints, difficult to redirect and control. Her is at a loss on how to continue to assist her at home and brings her in for further evaluation. Related Data Home Medications Medication Instructions Recorded Confirmed amlodipine 10 mg tablet 10 mg PO BEDTIME 03/06/20 06/21/23 quetiapine 300 mg tablet 300 mg PO BEDTIME 07/13/21 06/21/23 atorvastatin 20 mg tablet 20 mg PO BEDTIME 04/22/22 06/21/23 betamethasone dipropionate 0.05 % 0.05 applic topical BID eczema 04/22/22 06/21/23 topical cream oxycodone 5 mg tablet 5 mg PO TID PRN pain 04/22/22 06/21/23 Calcium 500 1 tab PO BEDTIME 06/13/23 06/21/23 lorazepam 1 mg tablet 0.5 mg PO 3XD 06/13/23 06/21/23 gabapentin 300 mg capsule 300 mg PO BID 06/21/23 06/21/23 Previous Rx's Medication Instructions Recorded metoclopramide HCl 10 mg tablet 10 mg PO Q6H PRN nausea and 08/27/21 (Reglan) vomiting #14 tabs ondansetron 4 mg disintegrating 4 mg PO Q8H PRN nausea and 05/08/22 tablet vomiting #14 tabs levothyroxine 75 mcg tablet 75 mcg PO DAILY@0600 #30 tabs 05/13/22 (Synthroid) Allergies Allergy/AdvReac Type Severity Reaction Status Date / Time Sulfa (Sulfonamide Allergy Unknown Verified 06/13/23 18:05 Antibiotics) desipramine Allergy Rash Verified 06/13/23 18:05 Review of Systems Review of Systems ROS Unobtainable: Unobtainable due to mental status/LOC Patient History Medical History (Updated 06/22/23 @ 01:26 by Elda Freedman MD) Eczema Hypothyroidism (acquired) Bipolar disorder Hypertension Surgical History Hx of cholecystectomy Family History Mother Alcohol abuse Father CVA (cerebral vascular accident) Social History household members: spouse Smoking Status: Never smoker alcohol intake: former Smoking Status: Never smoker alcohol intake frequency: 0-2 drinks per day Substance Use Type: does not use Exam Initial Vital Signs Initial Vital Signs: Vital Signs Temperature 97.9 F 06/21/23 17:53 Pulse Rate 108 H 06/21/23 17:53 Respiratory Rate 24 06/21/23 17:53 Blood Pressure 163/67 H 06/21/23 17:53 Pulse Oximetry 100 06/21/23 17:53 Oxygen Delivery Method Room Air 06/21/23 17:53 General: Disheveled, appears to be in pain, unfocused, yelling with tangential speech slightly pressured HEENT: Dry mucous membranes, normal sclera with reactive pupils, Respiratory: Lungs are clear to auscultation, no wheezing no rales no rhonchi. Full and symmetrical air movement Cardiac: Regular rate and rhythm no murmurs no bruits Abdomen: Soft, nontender, good bowel tones, no flank pain : Nursing staff attempted to place Richards catheter and she is significant vaginal descensus and urethral opening was not able to be clearly identified Skin: Pale with poor overall skin turgor Neurologic: Grossly neurologically intact with no obvious asymmetries or abnormalities Extremities: Right foot surgical site appears appropriate. Slight erythema but no obvious infection. Psych: Screaming, unable to be redirected, tangential, pressured speech, no obvious response to internal stimuli Course Orders Ordered: Acetaminophen (Acetaminophen 325 Mg Tablet) 650 mg PO Q6H PRN PRN Reason: Fever/Mild Pain (1-3) Atorvastatin Calcium (Atorvastatin 20 Mg Tablet) 20 mg PO BEDTIME [facility] Heparin Sodium (Porcine) (Heparin 5,000 Unit/Ml Vial) 5,000 unit SUBCUT BID ANDRESSA Hydromorphone HCl (Hydromorphone 0.5 Mg Inj) 0.5 mg IV Q15MIN PRN PRN Reason: Pain, NOREPINEPHRINE BITARTRATE/D5W (Levophed) 4 mg in 250 mls @ 23.814 mls/hr IV TITRATE ANDRESSA; Protocol Last Titration: 06/22/23 06:19 Dose: 0 mcg/kg/min, 0 mls/hr Documented By: Titration: 06/22/23 03:15 Dose: 0.1 mcg/kg/min, 23.814 mls/hr Documented By: Titration: 06/22/23 02:18 Dose: 0 mcg/kg/min, 0 mls/hr Documented By: Admin: 06/22/23 00:55 Dose: 0.1 mcg/kg/min, 23.814 mls/hr Documented By: SAUNDRA Lactated Ringer's (Lactated Ringers) 1,000 mls @ 100 mls/hr IV CONT [facility] Last Admin: 06/22/23 04:40 Dose: 100 mls/hr Documented By: MIRELLA Levothyroxine Sodium (Levothyroxine 75 Mcg Tablet) 75 mcg PO DAILY@0600 [facility] Lorazepam (Lorazepam 1 Mg Tablet) 0.5 mg PO TID [facility] Last Admin: 06/21/23 22:56 Dose: Not Given Documented By: KF Lorazepam (Lorazepam 2 Mg/Ml Inj) 0.5 mg IV Q2HR PRN PRN Reason: Anxiety Naloxone HCl (Naloxone 0.4 Mg/Ml Vial) 0.2 mg IV Q2MIN PRN PRN Reason: Opiate Reversal Ondansetron HCl (Ondansetron 4 Mg/2 Ml Inj) 4 mg IV Q8HR PRN PRN Reason: Nausea And Vomiting Ondansetron HCl (Ondansetron 4 Mg Odt) 4 mg PO Q8HR PRN PRN Reason: Nausea And Vomiting Oxycodone HCl (Oxycodone Ir 5 Mg Tablet) 5 mg PO Q3H PRN PRN Reason: Pain, Moderate (4-6) Quetiapine Fumarate (Quetiapine 100 Mg Tablet) 300 mg PO BEDTIME ANDRESSA Sennosides (Sennosides 8.6 Mg Tablet) 17.2 mg PO BEDTIME ANDRESSA Discontinued Medications Amlodipine Besylate (Amlodipine 5 Mg Tablet) 10 mg PO BEDTIME ANDRESSA Flumazenil (Flumazenil 0.5 Mg/5 Ml Mdv) 0.2 mg IV NOW ONE Stop: 06/22/23 01:39 Last Admin: 06/22/23 02:19 Dose: 0.2 mg Documented By: SAUNDRA Sodium Chloride (Normal Saline 0.9%) 1,000 mls @ 1,000 mls/hr IV BOLUS ONE Stop: 06/21/23 19:24 Last Admin: 06/21/23 18:45 Dose: Not Given Documented By: ZHANNA Sodium Chloride (Normal Saline 0.9%) 1,000 mls @ 84 mls/hr IV CONT ANDRESSA Last Admin: 06/22/23 00:41 Dose: Not Given Documented By: DARA Sodium Chloride (Normal Saline 0.9%) 1,000 mls @ 1,000 mls/hr IV BOLUS ONE Stop: 06/22/23 01:17 Last Infusion: 06/22/23 01:22 Dose: Infused Documented By: Admin: 06/22/23 00:18 Dose: 1,000 mls/hr Documented By: DARA Sodium Chloride (Normal Saline 0.9%) 1,000 mls @ 1,000 mls/hr IV BOLUS ONE Stop: 06/21/23 22:29 Last Infusion: 06/21/23 22:30 Dose: Infused Documented By: Admin: 06/21/23 21:30 Dose: 1,000 mls/hr Documented By: KF Sodium Chloride (Normal Saline 0.9%) 1,000 mls @ 1,000 mls/hr IV BOLUS ONE Stop: 06/21/23 23:29 Last Infusion: 06/21/23 23:30 Dose: Infused Documented By: Admin: 06/21/23 22:30 Dose: 1,000 mls/hr Documented By: KF Sodium Chloride (Normal Saline 0.9%) 1,000 mls @ 1,000 mls/hr IV BOLUS ONE Stop: 06/22/23 00:29 Last Infusion: 06/22/23 00:30 Dose: Infused Documented By: Admin: 06/21/23 23:30 Dose: 1,000 mls/hr Documented By: DARA Lorazepam (Lorazepam 2 Mg/Ml Inj) 2 mg IV NOW ONE Stop: 06/21/23 21:10 Last Admin: 06/21/23 21:30 Dose: 2 mg Documented By: SAUNDRA Olanzapine (Olanzapine 10 Mg Vial) 10 mg IM NOW ONE Stop: 06/21/23 18:26 Last Admin: 06/21/23 18:41 Dose: 10 mg Documented By: DIMA Oxycodone/Acetaminophen (Oxycodone/Acetaminophen 5/325 Tablet) 1 tab PO NOW ONE Stop: 06/21/23 19:13 Last Admin: 06/21/23 19:21 Dose: 1 tab Documented By: SAUNDRA Vital Signs Vital signs: Vital Signs - 8 hr 06/21/23 17:53 Temperature 97.9 F Pulse Rate 108 H Respiratory Rate 24 Blood Pressure 163/67 H Pulse Oximetry 100 Oxygen Delivery Method Room Air MDM - Psych Lab Data 06/22/23 06:30 06/22/23 06:30 Labs: Lab Results 06/21/23 06/21/23 06/21/23 Range/Units 18:25 20:05 20:05 WBC 9.7 (4.5-11.0) X10^3/uL RBC 3.79 L (4.0-5.2) X10^6/uL Hgb 11.1 L (12.0-16.0) g/dL Hct 33.1 L (36-46) % MCV 87.3 (80-100) fL MCH 29.3 (26-34) PG MCHC 33.6 (30-36) % RDW 13.7 (11.6-14.8) % Plt Count 320 (150-400) X10^3/uL Neut % (Auto) 68.0 (50-75) % Lymph % (Auto) 20.0 L (25-40) % [place] % (Auto) 8.6 (3-14) % Eos % (Auto) 2.8 (2-4) % Baso % (Auto) 0.6 (0-2) % Neut # (Auto) 6600 (2475-9039) /uL Lymph # (Auto) 1900 (4914-0524) /uL [place] # (Auto) 800 (0-900) /uL Eos # (Auto) 300 (0-450) /uL Baso # (Auto) 100 (0-100) /uL Sodium 139 (137-145) mmol/L Potassium 3.3 L (3.4-5.1) mmol/L Chloride 106 (98-107) mmol/L Carbon Dioxide 17 L (22-32) mmol/L BUN 17 (7-17) mg/dL Creatinine 1.82 H (0.52-1.04) mg/dL Estimated GFR 29 L (>60) mL/min BUN/Creatinine Ratio 9.3 (6-22) Glucose 96 (80-110) mg/dL Lactate 1.2 (0.7-2.1) mmol/L Calcium 10.0 (8.4-10.2) mg/dL Total Bilirubin 0.7 (0.2-1.3) mg/dL AST 44 H (14-36) IU/L ALT 32 (<35) IU/L Alkaline Phosphatase 161 H (38-126) U/L Total Protein 7.8 (6.3-8.2) g/dL Albumin 4.3 (3.5-5.0) g/dL Globulin 3.5 (1.7-4.1) g/dL Albumin/Globulin Ratio 1.2 (1.0-2.8) TSH 1.08 (0.47-4.68) uIU/mL Free T4 1.40 (0.78-2.19) ng/dL Urine Color Yellow Urine Appearance Clear Urine pH 5.0 Normal (4.5-8.0) Ur Specific [place] 1.010 (1.000-1.035) Urine Protein Negative (Negative) Urine Glucose (UA) Negative (Negative) g/dL Urine Ketones Negative (NEGATIVE) Urine Occult Blood Negative (Negative) Urine Nitrate Negative (Negative) Urine Bilirubin Negative (NEGATIVE) Urine Urobilinogen 0.2 (0.2) E.U./dL Ur Leukocyte Esterase Trace H (NEGATIVE) Urine RBC None seen (0-5/HPF) Urine WBC 1-5/hpf (0-5/HPF) Ur Squamous Epith Cells 1-5 /hpf (0-5/HPF) Urine Bacteria Occasional (0-1) (None) Ur Culture Indicated? Specimen cultured Vol Urine Centrifuged 10ml (spun) Salicylates 9.5 (<20) mg/dL U Opiates 300ng/mL cut Negative (Negative) Ur Oxycodone Screen Positive H (Negative) Urine Methadone Screen Negative (Negative) Acetaminophen < 10 (10-30) ug/mL Ur Barbiturates Screen Negative (Negative) U Tricyclic Antidepress Positive H (Negative) Ur Phencyclidine Scrn Negative (Negative) Ur Amphetamines Screen Negative (Negative) U Methamphetamines Scrn Negative (Negative) Ur MDMA Scrn (Ecstasy) Negative (Negative) U Benzodiazepines Scrn Negative (Negative) Urine Cocaine Screen Negative (Negative) U Marijuana (THC) Screen Negative (Negative) Urine Specific [place] Normal (Normal) Ethyl Alcohol < 10 ( - 10) mg/dL Ur Creatinine Normal (Normal) MDM Narrative Medical decision making narrative: CC: Acute metabolic encephalopathy likely complicated by hypomania Complicating co-morbidities: Surgery on June 08, unable to take medications, significant pain secondary to foot surgery inadequately controlled because she has not taking pain medications Data collected from: patient, Medical records reviewed: Discharge summary from June 15 when patient presented with similar complaints is reviewed. Differential considered: Altered mental status likely secondary to missed medications an inadequate pain control, sepsis, acute psychosis, possible benzodiazepine withdrawal (she had been prescribed routine Ativan and has not been taking usual medications) Exam documented above, pertinent findings include: Patient is thin, frail- appearing, dry mucous membranes, right foot is examined with surgical postop site appearing fairly appropriate. She is yelling and screaming and difficult to redirect. Lab Test results independently reviewed as above. Pertinent findings: CBC does not suggest leukocytosis. Postop anemia seems to be improving appropriately Chemistries show a potassium slightly low at 3.4. Worsening acute kidney injury with creatinine increased to 1.8. Liver studies are unremarkable. Thyroid studies are unremarkable Urine shows trace leukocyte esterase but no other secondary findings of urinary tract infection Tox screen is positive for oxycodone which is prescribed postoperatively and given prior to urine collection. Also positive for tricyclics EKG: Sinus rhythm at a rate of 63. No acute ischemic changes. Prolonged QTC at 505 milliseconds Imaging studies independently reviewed: Imaging studies done on June 14 with presentation for initial complaints show normal head CT, head neck CTA, and brain MRI. As symptoms today certainly seem more psychiatric and medication related difficulties rather than acute stroke or infection had imaging studies are not repeated Consultations:Dr Lr, hospitalist. Care is reviewed case discussed patient will be admitted for further treatment Treatments: Patient is initially given 10 mg of IM olanzapine. You were initially unable to get an IV so a Percocet tablet was given. Discussion: 73-year-old woman with acute encephalopathy versus gemini. She does have a diagnosis of bipolar disorder has been off her quetiapine has not been eating or drinking, has not been sleeping secondary to pain. Currently also has acute kidney injury. Initial IM Zyprexa was helpful but is going to need further medication management. Once an IV is established we will continue with pain medications and will also add Ativan and see if this helps with her overall agitation. We will discuss with the hospitalist, I believe she is a safe admit for [facility] she has not yet medically cleared given the kidney dysfunction. I do not see signs of sepsis I am not concerned with osteomyelitis at the postoperative site. She does need help with the additional pain control postoperatively. She needs to be back on her usual medications. She may benefit from inpatient psychiatric consultation in the hospital but is not appropriate for psychiatric hospitalization at this time. 140 am Patient is admitted to the hospitalist service and boarding in the emergency department She has had a acute decline in overall status. She is minimally responsive, hypotensive, bradycardic. Second line has been placed, she has had a total of 4 L of fluid. Is currently on Levophed with map at 64 EKG does not show any acute changes however does show prolonged QT at 505 milliseconds Phone call to Dr. Lr to help coordinate care. Lactate and blood cultures have been drawn but she tells does not have any sign of acute infectious etiology to suggest sepsis. Possibility of stroke however findings are nonspecific and global. Reportedly had similar episode of neurologic change with admit last week without the hypotension or bradycardia Possibility of medication interactions are reviewed. In the 8 hours that she has been here, she has had a total of 10 mg of IM Zyprexa proximally 2 hours later had an oral Percocet and 2 hours following that had 2 mg of IV Ativan. In looking at previous ED documentation she would received Ativan proceeding altered neurologic status. Of note, she does take Ativan on a scheduled basis and part of initial concern was possibility of benzodiazepine withdrawal. We will try a dose of Romazicon, additional blood work has been ordered, will CT her head to make sure there was no acute bleed. Place a Richards catheter for close observation of urine output. We will continue to hold on antibiotics as there continues to be no evidence of infectious etiology Regarding prolonged QT, reviewed with the hospitalist, recommended avoiding Zofran and quetiapine. Olanzapine does not have the complications with QT prolongation seen with quetiapine and maybe a interim possibility to help with her acute psychiatric symptoms. 227am after 0.2 mg of IV Romazicon patient is back to her awake and screaming but nonfocal initial presentation with blood pressure increasing again. It does seem like it with the patient is exquisitely sensitive to IV Ativan. On my initial evaluation of head CT I do not see any acute changes or findings. We will leave official radiology evaluation follow up to the hospitalist service. I have contacted Dr Lr again to update him on findings and coordinate care. Critical Care Time Critical Care Time Critical Care Time: Yes Total Critical Care Time: 47 Attestation: Critical care time is separate from other billable procedures. There is a high probability of a significant, sudden or life-threatening deterioration that requires my full and direct attention, intervention and personal management. This critical care time includes consultation with family and other consulting doctors, review of records, and interpretation of data from labs, EKGs and imaging as well as managements of acutely altered mental status and acute psychiatric emergency Discharge Plan Departure Patient Disposition: Admitted as Observation Clinical Impression: Acute kidney injury, Post-operative pain, Encephalopathy acute, Hypomania, Prolonged Q-T interval on ECG Admit Date/Time: 06/21/23 21:25 Admit Provider: Edvin Cody
[2023-06-21] MEDS: OLANZapine 10 MG VIAL IM (18:41)
[2023-06-21 18:48] LABS: Add Manual Diff / Slide Review NO; Basophils Absolute Auto 100 /uL (0-100); Basophils Percent Auto 0.6 % (0-2); Eosinophils Absolute Auto 300 /uL (0-450); Eosinophils Percent Auto 2.8 % (2-4); Hematocrit 33.1 % (36-46); Hemoglobin 11.1 g/dL (12.0-16.0); Lymphocytes Absolute Auto 1900 /uL (1100-4500); Mean Corpuscular HGB Conc 33.6 % (30-36); Mean Corpuscular Hemoglobin 29.3 PG (26-34); Mean Corpuscular Volume 87.3 fL (80-100); Monocytes Absolute Auto 800 /uL (0-900); Monocytes Percent Auto 8.6 % (3-14); Neutrophils Absolute Auto 6600 /uL (1500-7000); Platelet Count 320 X10^3/uL (150-400); Red Blood Cell Count 3.79 X10^6/uL (4.0-5.2); Red Cell Distribution Width 13.7 % (11.6-14.8); White Blood Cell Count 9.7 X10^3/uL (4.5-11.0)
--- NOTE | 2023-06-21 18:54 | CM.SWNOTE ---
ED VEHICLE WASHER Assessment VEHICLE WASHER - Grinding Mill Operator Assessment VEHICLE WASHER/Grinding Mill Operator Assessment Time Spent with Patient Start date 06/21/23 Visit Start Time 18:20 End date 06/21/23 Visit End Time 18:30 Total time Care Management spent on 10 minutes patient visit-in minutes Mental Health Screening Include Onset, Duration, Intensity Presenting Problem Patient presents to ED via EMS after spouse called 911 due to concern for patient's altered mental status, consistent screaming, yelling and manic behaviors since patient's last presentation to this hospital. Precipitating Event(s) Patient has a hx of Bipolar Disorder. Patient had a recent toe surgery on 06/10/23 and was off of her prescribed psychiatric medications prior to surgery and has difficulty stabilizing since then. Patient presented to the ED on 06/13/23 with similar presentation and was admitted to Acute care due to concern for AMS, Dehydration and VELASQUEZ. Spouse reports that patient was stable on medications prior to patient's recent toe surgery. Patient Strengths Patient has support from spouse who manages her medication and patient's older son Baldev is a support as well. Current Behavioral Health Provider(s) Patient sees carpet technician Include Facility, Provider, Ph. # with [facility] (Ph. # [phone], ext [phone]). Patient is prescribed Seroquil 300mg, Lorazapam 1 mg and Trazadone 150mg at bed time. Patient's spouse states that patient recently stopped rx for Gabapentin. Psych. Hx Mental Health and Chemical Patient has a hx of Bipolar Dependency Disorder. This VEHICLE WASHER is unable to ask patient further questions about chemical dependency at this time. Family Hx of Behavioral Abuse None reported Psychiatric Hospitalizations (date(s)/ Patient's spouse reports that location) patient was at [facility] unit via OPAL in December 2015. Spouse reports that patient has a hx of 3 other OPAL hospitalizations over 10 years in [place], [place] at the [facility] several years prior. Psychosocial information & Support Patient is 73 y/o female who Systems resides with spouse in [place]. Patient has spouse and children as supports. School/Work Retired Legal Concerns Legal Matters - Outstanding Issues None reported Mental Status Orientation (Person/Place/Time) A/O to place, self and person. Stated Mood I'm not crazy like you think I am Affect (Congruent with Mood?) labile, elevated, incongruent with mood Thought Content - Specify/Describe Unable to ask at this time Obsessions, Delusions, Hallucinations Thought Processes (Fpzcycs-Aznomelu-Ijmh tangential, perseverating on Fjzoggwi-Lexrnptj-Pszryemqjo- pain. Zfzihaovkpusjm-Syweohw-Aailuxzdqjty- Thought Blocking) Speech (Ymwzfm-Fhqp-Owexyzq-Rapid-Soft- Loud, pressured Loud-Pressured) Motor (Lnsmil-Gkbxllpyl-Udgi-Other) normal, patient laying still in bed Insight (Aizf-Syap-Czdc/Limited) limited/poor Judgement (Mofv-Jjdg-Vbak/Limited) limited/poor Impulse Control (Adequate-Impaired) somewhat adequate during assessment, patient is very distracted by pain and by being at the hospital. Memory (Uvnhnqtal-Lmjjbd-Ktwtge, impaired, not formally Impaired-Intact) assessed Concentration (Intact-Impaired) impaired, patient has difficult time having a conversation due to her elevated presentation Attention (Intact-Impaired) impaired Behavior (Appropriate-Inappropriate) fairly appropriate, although patient continues to scream and yell. Risk Assessment Suicidal Ideation (Plan) No Homicidal Ideation (Plan) No Comment Per triage assessment, this VEHICLE WASHER was unable to ask this question due to patient's presentation. Intervention Intervention VEHICLE WASHER meets with patient's spouse prior to meeting with patient. He endorses concern that patient has not been stable since before her surgery. Spouse endorses that he manages her medications and she takes them regularly. Spouse endorses that patient had to stop medications prior to surgery. Spouse endorses that patient continues to scream and cry with limited sleep. Spouse endorses patient's hx of OPAL BH placements, most recently in 2016 at [facility]. This VEHICLE WASHER enters room to meet with patient, patient presents as elevated and labile and unable to conduct formal assessment. ED provider enters room to address patient's pain and evaluates patient's toe. VEHICLE WASHER reviews patient with ED provider and ED provider recommends consult with Psychiatry to manage patient's medications due to patient's continued altered mental status. It is the opinion of this VEHICLE WASHER that patient would benefit from further BH evaluation and treatment upon medical clearance. At this time patient is not medically cleared. Plan RA Plan ED provider to medically assess patient. If patient is not medically clear patient likely to be admitted to acute care with psychiatry consult, if patient is medically clear patient likely requiring a DCR for further evaluation to determine BH placement. Camila Husain, BRAKE DRUM LATHE OPERATOR
[2023-06-21 19:05] LABS: Acetaminophen < 10 ug/mL (10-30); Alanine Aminotransferase 32 IU/L (<35); Albumin 4.3 g/dL (3.5-5.0); Albumin Globulin Ratio 1.2 (1.0-2.8); Alkaline Phosphatase 161 U/L (38-126); Aspartate Aminotransferase 44 IU/L (14-36); BUN Creatinine Ratio 9.3 (6-22); Bilirubin Total 0.7 mg/dL (0.2-1.3); Blood Urea Nitrogen 17 mg/dL (7-17); Carbon Dioxide 17 mmol/L (22-32); Chloride 106 mmol/L (98-107); Estimated Glomerular Filt Rate 29 mL/min (>60); Ethanol (ETOH) < 10 mg/dL; Globulin 3.5 g/dL (1.7-4.1); Glucose 96 mg/dL (80-110); HEMOLYSIS < 15 (0-50); Potassium 3.3 mmol/L (3.4-5.1); Salicylate 9.5 mg/dL (<20); Sodium 139 mmol/L (137-145); Total Protein 7.8 g/dL (6.3-8.2)
[2023-06-21] MEDS: OXYCODONE/ACETAMINOPHEN 5/325 TABLET 1 TAB PO (19:21)
[2023-06-21 19:35] LABS: Thyroid Stimulating Hormone 1.08 uIU/mL (0.47-4.68)
[2023-06-21 20:14] LABS: Appearance Urine UA CLEAR; Bilirubin Urine UA NEGATIVE (NEGATIVE); Color Urine UA YELLOW; Glucose Urine UA NEGATIVE (Negative); Ketones Urine UA NEGATIVE (NEGATIVE); Leukocyte Esterase Urine UA TRACE (NEGATIVE); Nitrite Urine UA NEGATIVE (Negative); Occult Blood Urine UA NEGATIVE (Negative); Protein Urine UA NEGATIVE (Negative); Urobilinogen Urine UA 0.2 E.U./dL (0.2)
[2023-06-21 20:19] LABS: Ur Creatinine Normal (Normal); Ur Specific Gravity Normal (Normal); Urine Amphetamines Negative (Negative); Urine Cocaine Negative (Negative); Urine Methamphetamines Negative (Negative); Urine Opiates Negative (Negative); Urine Phencyclidine Negative (Negative); Urine THC Negative (Negative); Urine pH Normal (Normal)
[2023-06-21 20:20] LABS: Urine Barbiturates Negative (Negative); Urine Benzodiazepines Negative (Negative); Urine MDMA Negative (Negative); Urine Methadone Negative (Negative); Urine Oxycodone Positive (Negative); Urine Tricyclic Antidepressant Positive (Negative)
--- NOTE | 2023-06-21 20:21 | PC.NURSE ---
pt woke up, more coherent, requests to use the bathroom, assisted w/ bedpan. able to urinate w/o issue. assisted w/ katherine-care and placed new brief, urine sample sent to lab. pt denies needs at this time. pt's at bedside.
[2023-06-21 20:26] LABS: Bacteria Urine Occasional (0-1); Culture Indicated Urine Specimen Cultured; RBC Urine None Seen (0-5/HPF); Squamous Epithelial Cell Urine 1-5 /HPF (0-5/HPF); Urine Volume 10mL (spun); WBC Urine 1-5/HPF (0-5/HPF)
--- NOTE | 2023-06-21 20:55 | DI.RAD.S_ITS ---
PROCEDURE: XR FOOT RT 2V INDICATIONS: infection TECHNIQUE: 2 views of the foot were acquired. COMPARISON: None. FINDINGS: Bones: Limited evaluation of the left foot due to suboptimal positioning related to patient factors. Possible dislocation of the 1st MTP joint. No definite acute fracture identified. Degenerative changes of the midfoot. No suspicious bony lesions. Soft tissues: No tibiotalar joint effusion. Achilles tendon appears normal. IMPRESSION: Limited evaluation of the left foot due to suboptimal positioning related to patient factors. Possible dislocation of the 1st MTP joint. Correlate with physical exam. No definite acute fracture identified. Approved by: Anastasia Winchester M.D. on 06/21/2023 at 22:05
[2023-06-21] MEDS: LORazepam 2 MG/ML INJ IV (21:30)
[2023-06-21] MEDS: SODIUM CHLORIDE 0.9% 1,000 ML 1000 ML IV ×3 (21:30→23:30)
--- NOTE | 2023-06-21 21:45 | PM.HP.1 ---
History of Present Illness History of Present Illness Date Patient Seen: 06/21/23 Chief complaint: Screaming,yelling and manic,hx bipolar Narrative: 73 years old female with history of bipolar disorder, maintained on Seroquel 300 mg hs and Ativan 0.5 mg tid, hypertension, hyperlipidemia, hypothyroidism, history of opiate overdose with multiple admissions for hyponatremia, presented to the ER with altered mental status/confusion. She had a recent right toe surgery and after the surgery her medications were held and she became increasingly confused and was admitted few days ago. Diagnosed with metabolic encephalopathy, likely due to either medication withdrawal or OD. She went home with her but at home she was not taking her medications, was not eating and drinking enough and presented to ED agitated, dehydrated with similar VELASQUEZ just like few days ago. She was given Zyprexa in the ED. Admitted to medicine with likely manic episode due to non-compliance with medications. [facility] Medical History (Updated 06/21/23 @ 21:55 by Edvin Lr MD) Eczema Hypothyroidism (acquired) Bipolar disorder Hypertension Surgical History Hx of cholecystectomy Family History Mother Alcohol abuse Father CVA (cerebral vascular accident) Social History household members: spouse Smoking Status: Never smoker alcohol intake: former Meds Home Medications and Allergies Home Medications Medication Instructions Recorded Confirmed Type amlodipine 10 mg tablet 10 mg PO BEDTIME 03/06/20 06/21/23 History quetiapine 300 mg tablet 300 mg PO BEDTIME 07/13/21 06/21/23 History metoclopramide HCl 10 mg tablet 10 mg PO Q6H PRN nausea and 08/27/21 06/21/23 Rx (Reglan) vomiting #14 tabs atorvastatin 20 mg tablet 20 mg PO BEDTIME 04/22/22 06/21/23 History betamethasone dipropionate 0.05 % 0.05 applic topical BID eczema 04/22/22 06/21/23 History topical cream oxycodone 5 mg tablet 5 mg PO TID PRN pain 04/22/22 06/21/23 History ondansetron 4 mg disintegrating 4 mg PO Q8H PRN nausea and 05/08/22 06/21/23 Rx tablet vomiting #14 tabs levothyroxine 75 mcg tablet 75 mcg PO DAILY@0600 #30 tabs 05/13/22 06/21/23 Rx (Synthroid) Calcium 500 1 tab PO BEDTIME 06/13/23 06/21/23 History lorazepam 1 mg tablet 0.5 mg PO 3XD 06/13/23 06/21/23 History gabapentin 300 mg capsule 300 mg PO BID 06/21/23 06/21/23 History Allergies Allergy/AdvReac Type Severity Reaction Status Date / Time Sulfa (Sulfonamide Allergy Unknown Verified 06/13/23 18:05 Antibiotics) desipramine Allergy Rash Verified 06/13/23 18:05 Review of Systems Review of Systems Narrative: unobtainable, initially manic then sedated with Zyprexa Exam Vital Signs (past 8 hours): - 06/21/23 17:53 Temperature 97.9 F Pulse Rate 108 H Respiratory Rate 24 Blood Pressure 163/67 H Pulse Oximetry 100 Oxygen Delivery Method Room Air Oxygen Delivery Method Room Air Const Other: laying in bed, sedated with Zyprexa Resp Other: CTA Cardio Other: RRR GI Other: abdomen not distended Skin Other: w/o rashes Objective Labs 06/21/23 18:25 06/21/23 18:25 Labs: Laboratory Results - last 24 hr 06/21/23 06/21/23 06/21/23 18:25 20:05 20:05 WBC 9.7 RBC 3.79 L Hgb 11.1 L Hct 33.1 L MCV 87.3 MCH 29.3 MCHC 33.6 RDW 13.7 Plt Count 320 Neut % (Auto) 68.0 Lymph % (Auto) 20.0 L [place] % (Auto) 8.6 Eos % (Auto) 2.8 Baso % (Auto) 0.6 Neut # (Auto) 6600 Lymph # (Auto) 1900 [place] # (Auto) 800 Eos # (Auto) 300 Baso # (Auto) 100 Sodium 139 Potassium 3.3 L Chloride 106 Carbon Dioxide 17 L BUN 17 Creatinine 1.82 H Estimated GFR 29 L BUN/Creatinine Ratio 9.3 Glucose 96 Calcium 10.0 Total Bilirubin 0.7 AST 44 H ALT 32 Alkaline Phosphatase 161 H Total Protein 7.8 Albumin 4.3 Globulin 3.5 Albumin/Globulin Ratio 1.2 TSH 1.08 Free T4 1.40 Urine Color Yellow Urine Appearance Clear Urine pH 5.0 Normal Ur Specific [place] 1.010 Urine Protein Negative Urine Glucose (UA) Negative Urine Ketones Negative Urine Occult Blood Negative Urine Nitrate Negative Urine Bilirubin Negative Urine Urobilinogen 0.2 Ur Leukocyte Esterase Trace H Urine RBC None seen Urine WBC 1-5/hpf Ur Squamous Epith Cells 1-5 /hpf Urine Bacteria Occasional (0-1) Ur Culture Indicated? Specimen cultured Vol Urine Centrifuged 10ml (spun) Salicylates 9.5 U Opiates 300ng/mL cut Negative Ur Oxycodone Screen Positive H Urine Methadone Screen Negative Acetaminophen < 10 Ur Barbiturates Screen Negative U Tricyclic Antidepress Positive H Ur Phencyclidine Scrn Negative Ur Amphetamines Screen Negative U Methamphetamines Scrn Negative Ur MDMA Scrn (Ecstasy) Negative U Benzodiazepines Scrn Negative Urine Cocaine Screen Negative U Marijuana (THC) Screen Negative Urine Specific [place] Normal Ethyl Alcohol < 10 Ur Creatinine Normal Assessment & Plan Assessment and plan (1) Bipolar 1 disorder with moderate gemini: Status: Acute (2) VELASQUEZ (acute kidney injury): Status: Acute (3) Hypertension: Status: Acute (4) Hypothyroidism (acquired): Status: Acute Assessment & Plan narrative: Bipolar 1 Disorder with moderate gemini - off Seroquel in the last ~ 10 days - given 10 mg of Zyprexa in ER - continue Seroquel 300 mg hs and Ativan 0.5 mg tid - if able to take PO - prn Ativan iv for agitation Recent Toe Sx - w/o complications VELASQUEZ - NS, 3rd liter - rechecking BMP in AM - prerenal, poor oral intake hypertension - Norvasc 10 mg daily at home - hypotensive after 2 L of NS - norvasc on hold - w/o leukocytosis or fever, Sx site healing well, adding LA, BCs, troponin, ECG Hypothyroidism - levothyroxine 75 mcg daily HLD - statin DVT prophylaxis - heparin
[2023-06-22] VITALS (139 sets, daily range): BP systolic 70–190; BP diastolic 43–97; PULSE 55–131; RESP 9–44; TEMP 36.6–36.7; O2SAT 85–100
--- NOTE | 2023-06-22 00:17 | PC.NURSE ---
present for telehealth doc on wheels bedside assessment. alerted dr to pt's hypotension despite IV fluid replacement. verbal read back for additional IV fluid bolus, given. pt persistently hypotensive. paging dr. for additional orders. pt responsive to pain, on 3L NC, on all monitoring equipment. brief changed.
[2023-06-22] MEDS: SODIUM CHLORIDE 0.9% 1,000 ML 1000 ML IV (00:18)
[2023-06-22 00:32] LABS: Lactate (Lactic Acid) 1.2 mmol/L (0.7-2.1)
--- NOTE | 2023-06-22 00:41 | PC.NURSE ---
Talked with telehospitalist about parameters for norepinepherine. Provider states would like map >55. Ensured provider wanted to keep map 55 or if he 65. He states he wanted >55.
[2023-06-22] MEDS: NOREPINEPHRINE BITARTRATE/D5W 4 MG/250 ML PLAST..BAG 23.814 MG IV (00:55)
[2023-06-22 01:18] LABS: Troponin I < 0.012 ng/mL (0.01-0.034)
--- NOTE | 2023-06-22 01:38 | DI.CT.S_ITS ---
PROCEDURE: CT HEAD/BRAIN WO CON INDICATIONS: acutely altered mental status TECHNIQUE: Noncontrast 4.5 mm thick angled axial sections acquired from the foramen magnum to the vertex, with coronal and sagittal reformats. For radiation dose reduction, the following was used: automated exposure control, adjustment of mA and/or kV according to patient size. COMPARISON: [facility], CT, CT HEAD/BRAIN WO CON, 06/14/2023, 3:39. FINDINGS: Image quality: Diagnostic. CSF spaces: Basal cisterns are patent. No extra-axial fluid collections. Ventricles are normal in size and shape. Brain: No midline shift. No intracranial masses or hemorrhage. Small area of encephalomalacia in the right cerebellum from remote infarct, unchanged. No area of hypodensity in a large vascular distribution to suggest acute infarction. Periventricular hypodensity consistent with chronic microvascular ischemic change. Age-related parenchymal loss. Skull and face: Calvarium and visualized facial bones are intact, without suspicious lesions. Sinuses: Visualized sinuses and mastoids are clear. IMPRESSION: No acute intracranial pathology identified. No interval change. Chronic microvascular ischemic disease. 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 This report is concordant with the overnight preliminary interpretation. Dictated by: Shamar Ledezma M.D. on 06/22/2023 at 8:54 Approved by: Shamar Ledezma M.D. on 06/22/2023 at 8:57
[2023-06-22 01:52] LABS: Alanine Aminotransferase 22 IU/L (<35); Albumin 2.4 g/dL (3.5-5.0); Albumin Globulin Ratio 0.9 (1.0-2.8); Alkaline Phosphatase 98 U/L (38-126); Aspartate Aminotransferase 33 IU/L (14-36); Bilirubin Total 0.4 mg/dL (0.2-1.3); Blood Urea Nitrogen 14 mg/dL (7-17); Calcium 6.9 mg/dL (8.4-10.2); Carbon Dioxide 12 mmol/L (22-32); Estimated Glomerular Filt Rate 49 mL/min (>60); Globulin 2.6 g/dL (1.7-4.1); Glucose 76 mg/dL (80-110); HEMOLYSIS 40 (0-50); Potassium 3.3 mmol/L (3.4-5.1); Sodium 142 mmol/L (137-145)
[2023-06-22 01:59] LABS: Chloride 122 mmol/L (98-107)
[2023-06-22] MEDS: FLUMAZENIL 0.5 MG/5 ML MDV 0.2 MG IV (02:19)
--- NOTE | 2023-06-22 02:28 | PC.NURSE ---
Pt given flumazenil as per order. PT woke up and started yelling again. dimmed lights and provided quiet environment.
[2023-06-22] MEDS: LACTATED RINGERS 1,000 ML 100 ML IV (04:40)
[2023-06-22 06:47] LABS: BUN Creatinine Ratio 11.2 (6-22); Blood Urea Nitrogen 12 mg/dL (7-17); Calcium 7.7 mg/dL (8.4-10.2); Carbon Dioxide 15 mmol/L (22-32); Chloride 120 mmol/L (98-107); Estimated Glomerular Filt Rate 55 mL/min (>60); Glucose 102 mg/dL (80-110); HEMOLYSIS < 15 (0-50); Potassium 3.1 mmol/L (3.4-5.1); Sodium 145 mmol/L (137-145)
[2023-06-22 06:49] LABS: Add Manual Diff / Slide Review NO; Basophils Absolute Auto 100 /uL (0-100); Basophils Percent Auto 0.7 % (0-2); Eosinophils Absolute Auto 500 /uL (0-450); Eosinophils Percent Auto 4.9 % (2-4); Hematocrit 30.7 % (36-46); Hemoglobin 10.4 g/dL (12.0-16.0); Lymphocytes Absolute Auto 3200 /uL (1100-4500); Lymphocytes Percent Auto 31.2 % (25-40); Mean Corpuscular HGB Conc 33.8 % (30-36); Mean Corpuscular Hemoglobin 29.4 PG (26-34); Monocytes Absolute Auto 700 /uL (0-900); Monocytes Percent Auto 7.2 % (3-14); Neutrophils Absolute Auto 5800 /uL (1500-7000); Platelet Count 293 X10^3/uL (150-400); Red Blood Cell Count 3.53 X10^6/uL (4.0-5.2); Red Cell Distribution Width 13.8 % (11.6-14.8); White Blood Cell Count 10.4 X10^3/uL (4.5-11.0)
--- NOTE | 2023-06-22 08:47 | P.PN_ITS ---
Subjective Subjective Interval history: Patient very anxious and crying out saying let me go, let me go!. Difficulty with redirecting by staff. Agitated and not following commands. Exam Vital Signs (past 8 hours): - 06/22/23 00:59 06/22/23 01:00 06/22/23 01:00 Pulse Rate 59 L 61 Respiratory Rate 11 L 12 Blood Pressure 109/68 Pulse Oximetry 98 99 Oxygen Delivery Method Oxygen Flow Rate 06/22/23 01:05 06/22/23 01:05 06/22/23 01:10 Pulse Rate 58 L Respiratory Rate 12 Blood Pressure 110/56 L 111/57 L Pulse Oximetry 98 Oxygen Delivery Method Oxygen Flow Rate 06/22/23 01:10 06/22/23 01:15 06/22/23 01:15 Pulse Rate 62 68 Respiratory Rate 12 12 Blood Pressure 90/53 L Pulse Oximetry 95 94 Oxygen Delivery Method Oxygen Flow Rate 06/22/23 01:19 06/22/23 01:20 06/22/23 01:20 Pulse Rate 63 63 Respiratory Rate 12 11 L Blood Pressure 86/54 L Pulse Oximetry 95 95 Oxygen Delivery Method Nasal Cannula Oxygen Flow Rate 2 06/22/23 01:25 06/22/23 01:25 06/22/23 01:30 Pulse Rate 58 L Respiratory Rate 10 L Blood Pressure 92/55 L 94/50 L Pulse Oximetry 95 Oxygen Delivery Method Nasal Cannula Oxygen Flow Rate 2 06/22/23 01:30 06/22/23 01:35 06/22/23 01:35 Pulse Rate 55 L 67 Respiratory Rate 10 L 11 L Blood Pressure 100/54 L Pulse Oximetry 95 95 Oxygen Delivery Method Oxygen Flow Rate 06/22/23 01:40 06/22/23 01:40 06/22/23 01:45 Pulse Rate 78 Respiratory Rate 14 Blood Pressure 111/55 L 106/56 L Pulse Oximetry 96 Oxygen Delivery Method Oxygen Flow Rate 06/22/23 01:45 06/22/23 01:50 06/22/23 01:50 Pulse Rate 68 66 Respiratory Rate 11 L 12 Blood Pressure 103/58 L Pulse Oximetry 95 98 Oxygen Delivery Method Oxygen Flow Rate 06/22/23 01:56 06/22/23 01:56 06/22/23 02:13 Pulse Rate 103 H 85 Respiratory Rate 26 H Blood Pressure 119/70 Pulse Oximetry 99 97 Oxygen Delivery Method Oxygen Flow Rate 06/22/23 02:15 06/22/23 02:15 06/22/23 02:20 Pulse Rate 80 Respiratory Rate 9 L Blood Pressure 122/56 L 100/50 L Pulse Oximetry 98 Oxygen Delivery Method Oxygen Flow Rate 06/22/23 02:20 06/22/23 02:25 06/22/23 02:25 Pulse Rate 82 76 Respiratory Rate 21 13 Blood Pressure 93/50 L Pulse Oximetry 95 96 Oxygen Delivery Method Nasal Cannula Oxygen Flow Rate 2 06/22/23 02:29 06/22/23 02:30 06/22/23 02:30 Pulse Rate 99 H 89 Respiratory Rate 22 11 L Blood Pressure 109/51 L Pulse Oximetry 100 99 Oxygen Delivery Method Nasal Cannula Oxygen Flow Rate 2 06/22/23 02:35 06/22/23 02:35 06/22/23 02:40 Pulse Rate 80 Respiratory Rate 13 Blood Pressure 85/46 L 89/50 L Pulse Oximetry 98 Oxygen Delivery Method Oxygen Flow Rate 06/22/23 02:40 06/22/23 02:45 06/22/23 02:45 Pulse Rate 74 77 Respiratory Rate 20 19 Blood Pressure 89/50 L Pulse Oximetry 96 98 Oxygen Delivery Method Oxygen Flow Rate 06/22/23 02:50 06/22/23 02:50 06/22/23 02:55 Pulse Rate 76 74 Respiratory Rate 17 15 Blood Pressure 85/51 L Pulse Oximetry 96 93 Oxygen Delivery Method Oxygen Flow Rate 06/22/23 02:55 06/22/23 03:00 06/22/23 03:00 Pulse Rate 74 Respiratory Rate 13 Blood Pressure 81/47 L 88/49 L Pulse Oximetry 93 Oxygen Delivery Method Oxygen Flow Rate 06/22/23 03:05 06/22/23 03:05 06/22/23 03:10 Pulse Rate 74 Respiratory Rate 20 Blood Pressure 84/50 L 88/51 L Pulse Oximetry 94 Oxygen Delivery Method Oxygen Flow Rate 06/22/23 03:10 06/22/23 03:15 06/22/23 03:15 Pulse Rate 72 69 Respiratory Rate 18 12 Blood Pressure 71/43 L Pulse Oximetry 94 93 Oxygen Delivery Method Oxygen Flow Rate 06/22/23 03:20 06/22/23 03:20 06/22/23 03:25 Pulse Rate 75 Respiratory Rate 11 L Blood Pressure 100/54 L 108/57 L Pulse Oximetry 94 Oxygen Delivery Method Oxygen Flow Rate 06/22/23 03:25 06/22/23 03:30 06/22/23 03:30 Pulse Rate 80 76 Respiratory Rate 13 11 L Blood Pressure 107/59 L Pulse Oximetry 95 95 Oxygen Delivery Method Nasal Cannula Oxygen Flow Rate 4 06/22/23 03:35 06/22/23 03:35 06/22/23 03:40 Pulse Rate 74 68 Respiratory Rate 12 10 L Blood Pressure 108/55 L Pulse Oximetry 96 96 Oxygen Delivery Method Oxygen Flow Rate 06/22/23 03:40 06/22/23 03:45 06/22/23 03:45 Pulse Rate 67 Respiratory Rate 10 L Blood Pressure 114/58 L 103/56 L Pulse Oximetry 96 Oxygen Delivery Method Nasal Cannula Oxygen Flow Rate 2 06/22/23 03:50 06/22/23 03:50 06/22/23 03:55 Pulse Rate 66 67 Respiratory Rate 9 L 13 Blood Pressure 104/58 L Pulse Oximetry 96 95 Oxygen Delivery Method Nasal Cannula Oxygen Flow Rate 2 06/22/23 03:55 06/22/23 04:00 06/22/23 04:00 Pulse Rate 63 Respiratory Rate 11 L Blood Pressure 107/58 L 102/54 L Pulse Oximetry 95 Oxygen Delivery Method Oxygen Flow Rate 06/22/23 04:05 06/22/23 04:05 06/22/23 04:10 Pulse Rate 67 Respiratory Rate 10 L Blood Pressure 98/53 L 97/53 L Pulse Oximetry 95 Oxygen Delivery Method Oxygen Flow Rate 06/22/23 04:10 06/22/23 04:15 06/22/23 04:15 Pulse Rate 62 63 Respiratory Rate 9 L 11 L Blood Pressure 102/56 L Pulse Oximetry 95 95 Oxygen Delivery Method Oxygen Flow Rate 06/22/23 04:20 06/22/23 04:20 06/22/23 04:25 Pulse Rate 65 62 Respiratory Rate 10 L 9 L Blood Pressure 100/55 L Pulse Oximetry 94 93 Oxygen Delivery Method Oxygen Flow Rate 06/22/23 04:25 06/22/23 04:30 06/22/23 04:30 Pulse Rate 62 Respiratory Rate 9 L Blood Pressure 110/55 L 105/55 L Pulse Oximetry 94 Oxygen Delivery Method Oxygen Flow Rate 06/22/23 04:35 06/22/23 04:35 06/22/23 04:40 Pulse Rate 62 60 Respiratory Rate 10 L 9 L Blood Pressure 102/54 L Pulse Oximetry 94 94 Oxygen Delivery Method Oxygen Flow Rate 06/22/23 04:40 06/22/23 04:45 06/22/23 04:45 Pulse Rate 64 Respiratory Rate 9 L Blood Pressure 97/51 L 102/55 L Pulse Oximetry 94 Oxygen Delivery Method Oxygen Flow Rate 06/22/23 04:50 06/22/23 04:50 06/22/23 04:54 Pulse Rate 62 64 Respiratory Rate 10 L 9 L Blood Pressure 106/53 L Pulse Oximetry 94 94 Oxygen Delivery Method Nasal Cannula Oxygen Flow Rate 2 06/22/23 04:55 06/22/23 04:55 06/22/23 05:00 Pulse Rate 61 62 Respiratory Rate 10 L 9 L Blood Pressure 96/51 L Pulse Oximetry 94 95 Oxygen Delivery Method Nasal Cannula Oxygen Flow Rate 2 06/22/23 05:00 06/22/23 05:05 06/22/23 05:05 Pulse Rate 62 Respiratory Rate 9 L Blood Pressure 104/54 L 95/51 L Pulse Oximetry 95 Oxygen Delivery Method Oxygen Flow Rate 06/22/23 05:10 06/22/23 05:10 06/22/23 05:15 Pulse Rate 62 Respiratory Rate 10 L Blood Pressure 106/55 L 109/56 L Pulse Oximetry 94 Oxygen Delivery Method Oxygen Flow Rate 06/22/23 05:15 06/22/23 05:20 06/22/23 05:20 Pulse Rate 62 61 Respiratory Rate 10 L 9 L Blood Pressure 104/56 L Pulse Oximetry 95 95 Oxygen Delivery Method Oxygen Flow Rate 06/22/23 05:25 06/22/23 05:25 06/22/23 05:30 Pulse Rate 63 Respiratory Rate 9 L Blood Pressure 110/57 L 102/55 L Pulse Oximetry 95 Oxygen Delivery Method Oxygen Flow Rate 06/22/23 05:30 06/22/23 05:35 06/22/23 05:35 Pulse Rate 63 59 L Respiratory Rate 13 11 L Blood Pressure 103/58 L Pulse Oximetry 95 95 Oxygen Delivery Method Oxygen Flow Rate 06/22/23 05:40 06/22/23 05:40 06/22/23 05:45 Pulse Rate 64 Respiratory Rate 10 L Blood Pressure 111/59 L 114/55 L Pulse Oximetry 95 Oxygen Delivery Method Oxygen Flow Rate 06/22/23 05:45 06/22/23 05:50 06/22/23 05:55 Pulse Rate 71 130 H Respiratory Rate 13 44 H Blood Pressure 147/97 H Pulse Oximetry 94 95 Oxygen Delivery Method Oxygen Flow Rate 06/22/23 05:55 06/22/23 06:00 06/22/23 06:00 Pulse Rate 131 H 124 H Respiratory Rate 39 H 24 Blood Pressure 144/96 H Pulse Oximetry 97 98 Oxygen Delivery Method Oxygen Flow Rate 06/22/23 06:05 06/22/23 06:05 06/22/23 06:11 Pulse Rate 117 H Respiratory Rate 16 Blood Pressure 126/88 161/77 H Pulse Oximetry 98 Oxygen Delivery Method Nasal Cannula Oxygen Flow Rate 2 06/22/23 06:11 06/22/23 06:15 06/22/23 06:15 Pulse Rate 106 H 110 H Respiratory Rate 16 26 H Blood Pressure 161/77 H Pulse Oximetry 98 99 Oxygen Delivery Method Oxygen Flow Rate 06/22/23 06:19 06/22/23 06:19 06/22/23 06:20 Pulse Rate 106 H Respiratory Rate 25 H Blood Pressure 151/67 H 124/59 L Pulse Oximetry 99 Oxygen Delivery Method Oxygen Flow Rate 06/22/23 06:20 06/22/23 06:26 06/22/23 06:26 Pulse Rate 103 H 104 H Respiratory Rate 23 19 Blood Pressure 162/69 H Pulse Oximetry 98 99 Oxygen Delivery Method Oxygen Flow Rate 06/22/23 06:30 06/22/23 06:30 06/22/23 06:35 Pulse Rate 102 H Respiratory Rate 21 Blood Pressure 135/60 108/55 L Pulse Oximetry 98 Oxygen Delivery Method Oxygen Flow Rate 06/22/23 06:35 06/22/23 06:40 06/22/23 06:40 Pulse Rate 88 104 H Respiratory Rate 14 26 H Blood Pressure 137/78 Pulse Oximetry 97 97 Oxygen Delivery Method Oxygen Flow Rate 06/22/23 06:45 06/22/23 06:45 06/22/23 06:50 Pulse Rate 87 Respiratory Rate 15 Blood Pressure 109/56 L 123/57 L Pulse Oximetry 98 Oxygen Delivery Method Oxygen Flow Rate 06/22/23 06:50 06/22/23 06:55 06/22/23 06:55 Pulse Rate 89 93 H Respiratory Rate 17 24 Blood Pressure 122/58 L Pulse Oximetry 98 98 Oxygen Delivery Method Oxygen Flow Rate 06/22/23 07:00 06/22/23 07:00 06/22/23 07:05 Pulse Rate 77 Respiratory Rate 15 Blood Pressure 109/55 L 119/61 Pulse Oximetry 98 Oxygen Delivery Method Oxygen Flow Rate 06/22/23 07:05 06/22/23 07:10 06/22/23 07:10 Pulse Rate 90 80 Respiratory Rate 14 14 Blood Pressure 105/62 Pulse Oximetry 98 97 Oxygen Delivery Method Oxygen Flow Rate 06/22/23 07:15 06/22/23 07:15 06/22/23 07:20 Pulse Rate 93 H 85 Respiratory Rate 26 H 23 Blood Pressure 120/61 Pulse Oximetry 99 98 Oxygen Delivery Method Oxygen Flow Rate 06/22/23 07:20 06/22/23 07:25 06/22/23 07:25 Pulse Rate 80 Respiratory Rate 20 Blood Pressure 109/59 L 110/59 L Pulse Oximetry 98 Oxygen Delivery Method Oxygen Flow Rate 06/22/23 07:30 06/22/23 07:30 06/22/23 07:35 Pulse Rate 93 H Respiratory Rate 24 Blood Pressure 140/71 146/75 H Pulse Oximetry 98 Oxygen Delivery Method Oxygen Flow Rate 06/22/23 07:35 06/22/23 07:40 06/22/23 07:40 Pulse Rate 94 H 94 H Respiratory Rate 23 16 Blood Pressure 126/63 Pulse Oximetry 98 99 Oxygen Delivery Method Oxygen Flow Rate 06/22/23 07:45 06/22/23 07:45 06/22/23 07:50 Pulse Rate 82 Respiratory Rate 13 Blood Pressure 115/60 98/59 L Pulse Oximetry 99 Oxygen Delivery Method Oxygen Flow Rate 06/22/23 07:50 06/22/23 07:55 06/22/23 07:55 Pulse Rate 74 70 Respiratory Rate 14 14 Blood Pressure 92/52 L Pulse Oximetry 99 100 Oxygen Delivery Method Oxygen Flow Rate 06/22/23 08:00 06/22/23 08:00 06/22/23 08:05 Pulse Rate 71 Respiratory Rate 14 Blood Pressure 94/52 L 92/52 L Pulse Oximetry 100 Oxygen Delivery Method Oxygen Flow Rate 06/22/23 08:05 06/22/23 08:10 06/22/23 08:10 Pulse Rate 70 69 Respiratory Rate 14 13 Blood Pressure 94/56 L Pulse Oximetry 100 100 Oxygen Delivery Method Oxygen Flow Rate 06/22/23 08:12 06/22/23 08:12 06/22/23 08:15 Pulse Rate 70 69 Respiratory Rate 14 14 Blood Pressure 93/58 L Pulse Oximetry 99 99 Oxygen Delivery Method Oxygen Flow Rate 06/22/23 08:15 06/22/23 08:20 06/22/23 08:20 Pulse Rate 67 Respiratory Rate 14 Blood Pressure 92/54 L 93/54 L Pulse Oximetry 99 Oxygen Delivery Method Oxygen Flow Rate 06/22/23 08:25 06/22/23 08:25 06/22/23 08:27 Pulse Rate 66 0 L Respiratory Rate 14 13 Blood Pressure 92/56 L Pulse Oximetry 99 98 Oxygen Delivery Method Oxygen Flow Rate 06/22/23 08:30 06/22/23 08:30 06/22/23 08:35 Pulse Rate 115 H Respiratory Rate 29 H Blood Pressure 149/85 H 148/72 H Pulse Oximetry 98 Oxygen Delivery Method Oxygen Flow Rate 06/22/23 08:35 06/22/23 08:37 06/22/23 08:37 Pulse Rate 105 H 102 H Respiratory Rate 24 33 H Blood Pressure 144/75 H Pulse Oximetry 100 100 Oxygen Delivery Method Oxygen Flow Rate 06/22/23 08:40 06/22/23 08:40 06/22/23 08:45 Pulse Rate 98 H Respiratory Rate 24 Blood Pressure 143/75 H 151/70 H Pulse Oximetry 100 Oxygen Delivery Method Oxygen Flow Rate 06/22/23 08:45 Pulse Rate 96 H Respiratory Rate 24 Blood Pressure Pulse Oximetry 100 Oxygen Delivery Method Oxygen Flow Rate Oxygen Delivery Method Nasal Cannula Oxygen Flow Rate 2 Const Other: laying in bed, sedated with Zyprexa Resp Other: CTA Cardio Other: RRR GI Other: abdomen not distended Skin Other: w/o rashes Objective Labs 06/22/23 06:30 06/22/23 06:30 Labs: Laboratory Results - last 24 hr 06/21/23 06/21/23 06/21/23 18:25 20:05 20:05 WBC 9.7 RBC 3.79 L Hgb 11.1 L Hct 33.1 L MCV 87.3 MCH 29.3 MCHC 33.6 RDW 13.7 Plt Count 320 Neut % (Auto) 68.0 Lymph % (Auto) 20.0 L [place] % (Auto) 8.6 Eos % (Auto) 2.8 Baso % (Auto) 0.6 Neut # (Auto) 6600 Lymph # (Auto) 1900 [place] # (Auto) 800 Eos # (Auto) 300 Baso # (Auto) 100 Sodium 139 Potassium 3.3 L Chloride 106 Carbon Dioxide 17 L BUN 17 Creatinine 1.82 H Estimated GFR 29 L BUN/Creatinine Ratio 9.3 Glucose 96 Lactate 1.2 Calcium 10.0 Total Bilirubin 0.7 AST 44 H ALT 32 Alkaline Phosphatase 161 H Troponin I Total Protein 7.8 Albumin 4.3 Globulin 3.5 Albumin/Globulin Ratio 1.2 TSH 1.08 Free T4 1.40 Urine Color Yellow Urine Appearance Clear Urine pH 5.0 Normal Ur Specific [place] 1.010 Urine Protein Negative Urine Glucose (UA) Negative Urine Ketones Negative Urine Occult Blood Negative Urine Nitrate Negative Urine Bilirubin Negative Urine Urobilinogen 0.2 Ur Leukocyte Esterase Trace H Urine RBC None seen Urine WBC 1-5/hpf Ur Squamous Epith Cells 1-5 /hpf Urine Bacteria Occasional (0-1) Ur Culture Indicated? Specimen cultured Vol Urine Centrifuged 10ml (spun) Salicylates 9.5 U Opiates 300ng/mL cut Negative Ur Oxycodone Screen Positive H Urine Methadone Screen Negative Acetaminophen < 10 Ur Barbiturates Screen Negative U Tricyclic Antidepress Positive H Ur Phencyclidine Scrn Negative Ur Amphetamines Screen Negative U Methamphetamines Scrn Negative Ur MDMA Scrn (Ecstasy) Negative U Benzodiazepines Scrn Negative Urine Cocaine Screen Negative U Marijuana (THC) Screen Negative Urine Specific [place] Normal Ethyl Alcohol < 10 Ur Creatinine Normal 06/22/23 06/22/23 00:38 06:30 WBC 10.4 RBC 3.53 L Hgb 10.4 L Hct 30.7 L MCV 87.0 MCH 29.4 MCHC 33.8 RDW 13.8 Plt Count 293 Neut % (Auto) 56.0 Lymph % (Auto) 31.2 [place] % (Auto) 7.2 Eos % (Auto) 4.9 H Baso % (Auto) 0.7 Neut # (Auto) 5800 Lymph # (Auto) 3200 [place] # (Auto) 700 Eos # (Auto) 500 H Baso # (Auto) 100 Sodium 142 145 Potassium 3.3 L 3.1 L Chloride 122 H* 120 H Carbon Dioxide 12 L 15 L BUN 14 12 Creatinine 1.17 H 1.07 H Estimated GFR 49 L 55 L BUN/Creatinine Ratio 12.0 11.2 Glucose 76 L 102 Lactate Calcium 6.9 L 7.7 L Total Bilirubin 0.4 AST 33 ALT 22 Alkaline Phosphatase 98 D Troponin I < 0.012 Total Protein 5.0 L Albumin 2.4 L Globulin 2.6 Albumin/Globulin Ratio 0.9 L TSH Free T4 Urine Color Urine Appearance Urine pH Ur Specific [place] Urine Protein Urine Glucose (UA) Urine Ketones Urine Occult Blood Urine Nitrate Urine Bilirubin Urine Urobilinogen Ur Leukocyte Esterase Urine RBC Urine WBC Ur Squamous Epith Cells Urine Bacteria Ur Culture Indicated? Vol Urine Centrifuged Salicylates U Opiates 300ng/mL cut Ur Oxycodone Screen Urine Methadone Screen Acetaminophen Ur Barbiturates Screen U Tricyclic Antidepress Ur Phencyclidine Scrn Ur Amphetamines Screen U Methamphetamines Scrn Ur MDMA Scrn (Ecstasy) U Benzodiazepines Scrn Urine Cocaine Screen U Marijuana (THC) Screen Urine Specific [place] Ethyl Alcohol Ur Creatinine PFSH Medical History (Updated 06/22/23 @ 01:26 by Elda Freedman MD) Eczema Hypothyroidism (acquired) Bipolar disorder Hypertension Surgical History Hx of cholecystectomy Family History Mother Alcohol abuse Father CVA (cerebral vascular accident) Social History household members: spouse Smoking Status: Never smoker alcohol intake: former Assessment & Plan Assessment & Plan narrative: Bipolar 1 Disorder with moderate gemini - off Seroquel in the last ~ 10 days prior to admission - given 10 mg of IV Zyprexa in ER - continue Seroquel 300 mg hs and Ativan 0.5 mg tid - prn Ativan iv for agitation - if not improving will involve psych after the weekend over Transient hypotension - likely due to sedatives given in ED - now weaned off levophed Recent Toe Sx - w/o complications VELASQUEZ, improving - received 3L NS in ED - prerenal, poor oral intake - now drinking so IVF stopped hypertension - Norvasc 10 mg daily at home - hypotensive after 2 L of NS - norvasc on hold due to VELASQUEZ - w/o leukocytosis or fever, Sx site healing well, adding LA, BCs, troponin, ECG Hypothyroidism - levothyroxine 75 mcg daily - TSH normal HLD - statin DVT prophylaxis - heparin Dispo: Pending improvement in agitation. May need psych to eval on 06/24 once the weekend over. Quality VTE Deep Vein Thrombosis/Pulmonary Embolism Present on Admission: No
--- NOTE | 2023-06-22 08:56 | PC.NURSE ---
[id number] pt hypotensive due to positioning, lying on R-side, once placed on her back BP 140/70, HR 87. Charge aware.
[2023-06-22] MEDS: HEPARIN 5,000 UNIT/ML VIAL 5000 UNIT SUBCUT ×2 (09:24→20:08)
[2023-06-22] MEDS: LEVOTHYROXINE 75 MCG TABLET PO (09:25)
[2023-06-22 09:28] LABS: Magnesium 1.4 mg/dL (1.6-2.3)
[2023-06-22] MEDS: LORazepam 1 MG TABLET 0.5 MG PO ×3 (09:41→20:07)
[2023-06-22] MEDS: POTASSIUM CHLORIDE IN WATER 10 MEQ/100 ML PIGGYBACK 100 MEQ IV ×6 (09:42→15:13)
[2023-06-22] MEDS: MAGNESIUM SULFATE 4 GM/100 ML PIGGYBACK IV (10:06)
--- NOTE | 2023-06-22 10:46 | PC.NURSE ---
Patient had 20G IV in right forearm that was placed by unknown RN at unknown time. This RN input documentation to match line that was in the patient right forearm. Patient pulled out left AC. Magnesium infusion paused while primary RN attempts new addition IV line.
[2023-06-22] MEDS: LORazepam 2 MG/ML INJ 0.5 MG IV (12:13)
[2023-06-22] MEDS: HYDROMORPHONE 0.5 MG INJ IV (12:14)
[2023-06-22] MEDS: OLANZapine ODT 10 MG TAB PO (13:14)
--- NOTE | 2023-06-22 14:32 | CM.DANOTE ---
Initial DCP Assessment Note Patient is a 73 yo F, recently admitted at 06/14-06/15 for altered mental status, hx Bipolar disorder; AMS suspected to be sec to stopping her home medications of Seroquel, Ativan and Trazadone in preparation for a toe surgery. Patient had been restarted on her home meds during last admission and cognition had improved. Patient was discharged home with spouse. Patient returns with altered mental status and manic presentation- patient not sleeping or eating, has been screaming, refuses to take her medications and has been wandering her home. Spouse reports not knowing what to do so brought her into the ER for work up. Thus far, medical work up shows no medical component to this presentation. Brief conversation with spouse Britton this morning, spouse reports not having DPOA ppk at this time although would like the ppk so that he can get this done when patient is more alert. Spouse reports that up until approx three weeks ago, patient was independent in all aspects and A+Ox4. ED provider Dr Elda Freedman summarizes POC as of 06/22/23 as follows: Discussion: 73-year-old woman with acute encephalopathy versus gemini. She does have a diagnosis of bipolar disorder has been off her quetiapine has not been eating or drinking, has not been sleeping secondary to pain. Currently also has acute kidney injury. Initial IM Zyprexa was helpful but is going to need further medication management. Once an IV is established we will continue with pain medications and will also add Ativan and see if this helps with her overall agitation. We will discuss with the hospitalist, I believe she is a safe admit for [facility] she has not yet medically cleared given the kidney dysfunction. I do not see signs of sepsis I am not concerned with osteomyelitis at the postoperative site. She does need help with the additional pain control postoperatively. She needs to be back on her usual medications. She may benefit from inpatient psychiatric consultation in the hospital but is not appropriate for psychiatric hospitalization at this time. This COMPUTER NETWORK ENGINEER speaking with provider DR Calderon and staff throughout the day; patient felt to be medically stable and needing psychiatric care at this time. Placed call to [facility] to discuss this case, had a lengthy conversation with WILLEM Herring with the [facility] team. Clinical information reviewed, behavioral presentation reviewed, concerned reviewed. Soham suggests calling [facility] again if patient is stabilized enough to get out of bed and ambulate; a person will need to be indp in ADLs in order to be considered for psychiatric placement. In addition, patient responded well last week to getting back on her home medications and may again if given time. Soham predicts no psychiatric unit would consider patient today but encourages another call to discuss as needed. SW team will need to follow closely. Attending provider is hopeful to get Dr Alvarez's input upon his return Saturday. Zyprexa started today for sx management. CRUZ Wong Discharge Planning/Care Management CM Discharge Assessment Start: 06/22/23 13:28 Freq: Status: Active Protocol: Document 06/22/23 14:29 GHAZAL (Rec: 06/22/23 14:32 GHAZAL [id number]) Discharge Planning Assessment Assigned Logistics Director CRUZ Fuentes DPOA/Assigned Designee Name Britton Kim, spouse Contact Information [phone] Advance Directives? No Advance Directives on File No History Provided By Significant Other,Medical Record Has Patient been admitted in last 30 Yes days? Comment Patient was here from 06/13-06/15 Prior Living Arrangements House Household Members spouse Type of transporation used prior to Relies on Others admit Independent with ADL's Yes: Before recent decline Is patient alert and oriented? Yes: Before recent decline Barriers to Discharge Yes Comment Considered to be acutely psychotic. Plan TBD. Transportation Arrangement TBD Additional Comment See narrative for conversation w/DCR
[2023-06-22] MEDS: QUETIAPINE 25 MG TABLET PO (15:25)
[2023-06-22] MEDS: LORazepam 2 MG/ML INJ 1 MG IV (16:48)
[2023-06-22] MEDS: QUETIAPINE 100 MG TABLET 300 MG PO (20:07)
[2023-06-22] MEDS: SENNOSIDES 8.6 MG TABLET 17.2 MG PO (20:08)
[2023-06-22] MEDS: ATORVASTATIN 20 MG TABLET PO (20:08)
[2023-06-22 22:11] LABS: MRSA (Nasal) PCR DETECTED (Not Detect)
[2023-06-23] VITALS (8 sets, daily range): BP systolic 119–134; BP diastolic 62–66; PULSE 106–123; RESP 15–16; TEMP 36.1–36.7; O2SAT 95–100
[2023-06-23] MEDS: LEVOTHYROXINE 75 MCG TABLET PO (05:23)
--- NOTE | 2023-06-23 07:33 | PM.PN.1 ---
Subjective Subjective Interval history: Patient more somnolent today with daytime dose of seroquel. Spoke to and son today who said she appeared to be manic at home before coming into the hospital, but that she was also having paranoid delusions and hallucinations. Patient's other son had similar mental health issues and was diagnosed with schizoaffective-bipolar disorder and ended up committing suicide while off his meds which was hard on their mom. Exam Vital Signs (past 8 hours): - 06/23/23 03:33 Temperature 98.1 F Pulse Rate 119 H Respiratory Rate 16 Blood Pressure 134/66 Pulse Oximetry 96 Oxygen Flow Rate 0 Oxygen Delivery Method Room Air Oxygen Flow Rate 0 Const Other: laying in bed, sedated with seroquel Resp Other: CTA Cardio Other: RRR GI Other: abdomen not distended Skin Other: w/o rashes Objective Labs 06/23/23 10:15 06/23/23 10:15 Labs: Laboratory Results - last 24 hr 06/22/23 06/22/23 01:38 11:54 Magnesium 1.4 L Nasal Screen MRSA (PCR) Detected H [facility] Medical History (Updated 06/22/23 @ 01:26 by Elda Freedman MD) Eczema Hypothyroidism (acquired) Bipolar disorder Hypertension Surgical History Hx of cholecystectomy Family History Mother Alcohol abuse Father CVA (cerebral vascular accident) Social History household members: spouse Smoking Status: Never smoker alcohol intake: former Assessment & Plan Assessment & Plan narrative: Bipolar 1 Disorder with moderate gemini - off Seroquel in the last ~ 10 days prior to admission - given 10 mg of IV Zyprexa in ER - continue Seroquel 300 mg qHS, 50mg in morning and Ativan 0.5 mg tid - prn Ativan iv for agitation - plan to consult psych on 06/24 for medication recs Transient hypotension - likely due to sedatives given in ED - now weaned off levophed Recent Toe Sx - w/o complications VELASQUEZ, improving - received 3L NS in ED - prerenal, poor oral intake - now drinking so IVF stopped hypertension - Norvasc 10 mg daily at home - hypotensive after 2 L of NS - norvasc on hold due to VELASQUEZ - w/o leukocytosis or fever, Sx site healing well, adding LA, BCs, troponin, ECG Hypothyroidism - levothyroxine 75 mcg daily - TSH normal HLD - statin DVT prophylaxis - heparin Dispo: Pending improvement in agitation. Will need psych to eval on 06/24 once the weekend over to help titrate meds. Quality VTE Deep Vein Thrombosis/Pulmonary Embolism Present on Admission: No
[2023-06-23] MEDS: OXYCODONE IR 5 MG TABLET PO ×3 (07:51→21:50)
[2023-06-23] MEDS: POTASSIUM CHLORIDE 20 MEQ TAB 40 MEQ PO (07:51)
[2023-06-23] MEDS: LORazepam 1 MG TABLET 0.5 MG PO ×3 (08:06→20:43)
[2023-06-23] MEDS: HEPARIN 5,000 UNIT/ML VIAL 5000 UNIT SUBCUT ×2 (08:06→20:42)
[2023-06-23] MEDS: QUETIAPINE 25 MG TABLET 50 MG PO (08:09)
[2023-06-23] MEDS: cefTRIAXone 1,000 MG in SODIUM CHLORIDE 0.9% 100 ML 200 MG IV (08:51)
[2023-06-23 10:21] LABS: Add Manual Diff / Slide Review NO; Basophils Absolute Auto 100 /uL (0-100); Basophils Percent Auto 0.5 % (0-2); Eosinophils Absolute Auto 300 /uL (0-450); Eosinophils Percent Auto 2.3 % (2-4); Hematocrit 34.8 % (36-46); Hemoglobin 11.7 g/dL (12.0-16.0); Lymphocytes Absolute Auto 1900 /uL (1100-4500); Mean Corpuscular HGB Conc 33.7 % (30-36); Mean Corpuscular Hemoglobin 29.4 PG (26-34); Mean Corpuscular Volume 87.2 fL (80-100); Monocytes Absolute Auto 600 /uL (0-900); Monocytes Percent Auto 5.9 % (3-14); Neutrophils Absolute Auto 7800 /uL (1500-7000); Neutrophils Percent Auto 73.3 % (50-75); Platelet Count 294 X10^3/uL (150-400); Red Blood Cell Count 3.99 X10^6/uL (4.0-5.2); Red Cell Distribution Width 14.5 % (11.6-14.8); White Blood Cell Count 10.7 X10^3/uL (4.5-11.0)
--- NOTE | 2023-06-23 10:22 | CM.DPC ---
DCP Cont. Reviewed EMR and team rounds for status updates. Pt reportedly screamed on and off throughout the night, was found to be sleeping peacefully this morning at the time of this visit. Plan is for Dr. Alvarez to be consulted tomorrow (Saturday) re: pt's psych meds and recommendations. Will continue to monitor closely for evolving d/c needs and resources.
[2023-06-23 10:43] LABS: BUN Creatinine Ratio 11.8 (6-22); Blood Urea Nitrogen 9 mg/dL (7-17); Calcium 8.7 mg/dL (8.4-10.2); Carbon Dioxide 18 mmol/L (22-32); Chloride 110 mmol/L (98-107); Estimated Glomerular Filt Rate > 60 mL/min (>60); Glucose 106 mg/dL (80-110); HEMOLYSIS < 15 (0-50); Sodium 142 mmol/L (137-145)
[2023-06-23] MEDS: LORazepam 2 MG/ML INJ 1 MG IV ×2 (17:18→22:55)
[2023-06-23] MEDS: QUETIAPINE 100 MG TABLET 300 MG PO (20:42)
[2023-06-23] MEDS: ATORVASTATIN 20 MG TABLET PO (20:42)
[2023-06-23] MEDS: SENNOSIDES 8.6 MG TABLET 17.2 MG PO (20:42)
[2023-06-24] VITALS (31 sets, daily range): BP systolic 134–145; BP diastolic 64–70; PULSE 91–136; RESP 17–19; TEMP 36.4–37.1; O2SAT 96–100
[2023-06-24] MEDS: LEVOTHYROXINE 75 MCG TABLET PO (05:44)
[2023-06-24] MEDS: OXYCODONE IR 5 MG TABLET PO ×2 (05:44→17:06)
--- NOTE | 2023-06-24 06:18 | PC.NURSE ---
pt remains confused and somewhat tearful at times; she calls out for her and mother; she has been medicated with prn ativan for agitation, and oxy 5mg for c/o right foot pain
[2023-06-24] MEDS: cefTRIAXone 1,000 MG in SODIUM CHLORIDE 0.9% 100 ML 200 MG IV (08:17)
[2023-06-24] MEDS: HEPARIN 5,000 UNIT/ML VIAL 5000 UNIT SUBCUT ×2 (08:18→20:00)
[2023-06-24] MEDS: POTASSIUM CHLORIDE 20 MEQ TAB 40 MEQ PO (08:26)
[2023-06-24] MEDS: QUETIAPINE 25 MG TABLET 50 MG PO (08:26)
[2023-06-24] MEDS: LORazepam 1 MG TABLET 0.5 MG PO ×3 (08:26→20:01)
[2023-06-24] MEDS: CEFEPIME 1 GM in SODIUM CHLORIDE 0.9% 100 ML IV ×2 (10:03→20:01)
[2023-06-24] MEDS: SODIUM CHLORIDE 0.9% FLUSH 10 ML IV ×3 (10:05→20:00)
--- NOTE | 2023-06-24 11:50 | ST.IPIE ---
Visit Care Team Role Provider Type REBECA Garcia Primary Care Provider Non-Staff Specialty: Medical Address: [address], [place], [address] Email: Grabiel Alvarez MD Other Providers Physician Specialty: Psychiatry Address: [facility] [facility], [place], [address] Email: [email or web address] Elda Freedman MD Emergency Provider Physician Referring Provider Specialty: Emergency Medicine Address: [address] [place] [address], [id number] Email: Edvin Lr MD Admit Provider Physician Attending Provider Specialty: Internal Medicine Address: [address] [place] [address], [id number] Fax: Email: [email or web address] Current Diagnoses Hypothyroidism, unspecified (06/21/23) Bipolar disorder, current episode manic without psychotic features, moderate (06/21/23) Essential (primary) hypertension (06/21/23) Acute kidney failure, unspecified (06/21/23) Past Medical History (Last Updated 06/21/23 @ 21:55 by Edvin Lr MD) Bipolar disorder (Medical) Eczema (Medical) Hypertension (Medical) Hypothyroidism (acquired) (Medical) ST IP Initial Evaluation Report 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 Kt Calderon Reason for Referral dysphagia Setting Assessment Location Acute Care Visit Type Note Type Initial evaluation Next Note Type Next Note Type Treatment Note Patient Information Identification Type Name,Wristband History Per H&P: 73 years old female with history of bipolar disorder, maintained on Seroquel 300 mg hs and Ativan 0.5 mg tid, hypertension, hyperlipidemia, hypothyroidism , history of opiate overdose with multiple admissions for hyponatremia, presented to the ER with altered mental status /confusion. She had a recent right toe surgery and after the surgery her medications were held and she became increasingly confused and was admitted few days ago. Diagnosed with metabolic encephalopathy, likely due to either medication withdrawal or OD. She went home with her but at home she was not taking her medications, was not eating and drinking enough and presented to ED agitated, dehydrated with similar VELASQUEZ just like few days ago. She was given Zyprexa in the ED. Admitted to medicine with likely manic episode due to non-compliance with medications. Pt referred for ST evaluation d/t reduced PO intake and to determine safest and most efficient least restrictive diet. Subjective Observations Pt sitting upright in bed. Nurse present. Pt with eyes closed throughout evaluation however reported she was hungry. Nursing placed Pt's lower dentures in. Reduced PO trials d/t Pt somnolent. Pt oriented to self and place. Reported by Patient/Caregiver Comment Pt with dysphagia diet ordered, however Pt presented with IDDSI 7 and thin liquids for breakfast during evaluation, however consisted of oatmeal and diced peaches. The IDDSI Framework Protocol: IDDSI.1 Objective Assessment Mental Status Alert,Cooperative,Lethargic Oral Integrity WFL Dentition Upper dentures/partials,Lower dentures/partials Comment Unable to complete formal exam d/t Pt lethargic and difficulties following commands. Pt with reduced labial, lingual and buccal strength characterized by Pt with anterior spillage with all trials and weak lip seal. Food and Liquid Trials Position During Assessment Upright (90 degrees) Liquids Trialed Thin (IDDSI 0) Solid Trials Purred (IDDSI 4),Minced & Moist (IDDSI 5) Administration Type Cup single sip,Dependent feeding Oral Impairment Moderately impaired Oral Phase Comments Pt consumed a few bites of oatmeal and pudding with about 3 oz of thin water via cup. Pt with reduced intake d/t lethargy. Pt required 100% feeding assistance. For oatmeal, Pt demonstrated weak lip seal and reduced oral cavity opening, poor bolus containment resulting in anterior spillage of all trials, extended ap transport, prolonged/slow bolus formation, piecemeal deglutition, minimal oral stasis. For pureed solids Pt demonstrated improved bolus formation however continued slow/prolonged bolus manipulation, extended ap transport, mild anterior spillage of saliva. Pt demonstrated poor suction with attempt of drinking through a straw with thin water. Weak lip seal around cup, slight anterior spillage, extended ap transport. Pharyngeal Impairment Mildly impaired Pharyngeal Phase Comments No overt s/s of aspiration with all PO trials. Pt with slight wet vocal quality post swallows of thin liquids. Suspected delay in swallow all trials. Multiple swallows to clear bolus. Nursing also provided small meds whole in applesauce, which Pt appeared to consume without difficulties. Fatigue/Endurance Moderate fatigue The IDDSI Framework Protocol: IDDSI.1 Findings Swallowing Function Oropharyngeal phase dysphagia Severity of Swallow Impairment Moderately impaired Contributing Factors to Swallow Reduced alertness or attention Impairment ,Reduced oral strength/ coordination/sensation, Mastication inefficiency Prognosis Fair Based on Cognitive status Impact on Safety and Functioning Risk for inadequate nutrition/ hydration Recommendations Instrumental Assessment No Swallowing Treatment Yes Frequency Daily while inpatient Recommended Solids Pureed (IDDSI 4) Recommended Liquids Thin (IDDSI 0) Other Recommendations ST recommends IDDSI 4/IDDSI 0. ST communicated recommendations with nursing and for Pt to be fed only when awake/alert and to have 100% feeding assistance/supervision and strict oral care after intake. Safety Precautions/Swallowing Supervision needed for all Recommendations meals,Remain upright (90 degrees) during all oral intake,Upright position at least 30 minutes after meals, Small bites and sips when eating,Slow rate; swallow between bites,Alternate liquids and solids,1 to 1 feeding assistance,Strict oral care after intake Medication Recommendations Crushed in Carrier Education Patient/Caregiver Education Described results of evaluation,Family/caregivers require further education/ training Goals Short-term Goals STG 1: Patient will tolerate therapeutic PO trials of IDDSI 4/5/6 with no clinical s/s of dysphagia 100% of the time in order to consume least restrictive diet. STG 2: Patient will tolerate thin liquids with no clinical s/s of aspiration 100% of the time in order to consume least restrictive diet. Long-term Goals LTG: Patient will tolerate safest and most efficient diet with no clinical s/s of aspiration or dysphagia 100% of the time in order to consume least restrictive diet .
[2023-06-24] MEDS: ACETAMINOPHEN 325 MG TABLET 650 MG PO (13:50)
--- NOTE | 2023-06-24 15:57 | CM.DPC ---
DCP Cont: Per MD, awaiting possible Psych Consult today for med management and recommendations. ST recommending modified diet and 1:1 feeding at this time as pt too weak and confused to manage independently. PT not yet ordered as per RN pt is more alert and oriented to self at this time but still having difficulty following commands and fatigued. Psych Consult order placed and SW called [facility] and alerted staff to the Consult order and psychiatrist aware but back to back appointments today so far and he will attempt if cancellation or after clinic if possible. Plan: Patient continues to be below baseline in mentation and not independent with ADLs which is a barrier to Psych placement if needed. SW to follow closely for hopeful med management by Psych recommendations and for pt to progress closer to baseline with ability to complete ADLs. CRUZ Montgomery
--- NOTE | 2023-06-24 16:23 | P.PN_ITS ---
Subjective Subjective Interval history: Patient more oriented, now to [facility], still not sure on the date. She is pretty somnolent but arousable and answering questions. She does not remember why she is in the hospital. Exam Vital Signs (past 8 hours): - 06/24/23 12:00 06/24/23 12:40 Temperature 98.0 F Pulse Rate 105 H Respiratory Rate 17 Blood Pressure 134/64 Pulse Oximetry 100 Oxygen Flow Rate 0 Oxygen Delivery Method Room Air Oxygen Flow Rate 0 Const Other: laying in bed, oriented to name and hospital. Resp Other: CTA Cardio Other: RRR GI Other: abdomen not distended Skin Other: mild toe erythema around stitches, but no tenderness or warmth,. Objective Labs 06/23/23 10:15 06/23/23 10:15 [facility] Medical History (Updated 06/22/23 @ 01:26 by Elda Freedman MD) Eczema Hypothyroidism (acquired) Bipolar disorder Hypertension Surgical History Hx of cholecystectomy Family History Mother Alcohol abuse Father CVA (cerebral vascular accident) Social History household members: spouse Smoking Status: Never smoker alcohol intake: former Assessment & Plan Assessment & Plan narrative: Bipolar 1 Disorder with moderate gemini - off Seroquel in the last ~ 10 days prior to admission - given 10 mg of IV Zyprexa in ER - continue Seroquel 300 mg qHS, 50mg in morning and Ativan 0.5 mg tid - prn Ativan iv for agitation - discussed with dr. ring, patient has past history of lithium toxicity and has seen him in the past. Unclear if this is medication withdrawal, bipolar disorder, metabolic encephalopathy, etc. He will consult, no current medication changes recommended after initial discussion. Transient hypotension - likely due to sedatives given in ED - now weaned off levophed Recent Toe Sx - w/o complications, mild surrounding erythema today but no tenderness or warmth. VELASQUEZ, improving - received 3L NS in ED - prerenal, poor oral intake - now drinking so IVF stopped hypertension - Norvasc 10 mg daily at home - hypotensive after 2 L of NS - norvasc on hold due to VELASQUEZ - w/o leukocytosis or fever, Sx site healing well, adding LA, BCs, troponin, ECG Hypothyroidism - levothyroxine 75 mcg daily - TSH normal HLD - statin DVT prophylaxis - heparin Dispo: Likely home vs SNF, will have PT assess. She will not likely be a SNF candidate but if psychiatrically improved / stable on resumption of her medications may be a possibility. Quality VTE Deep Vein Thrombosis/Pulmonary Embolism Present on Admission: No
--- NOTE | 2023-06-24 17:12 | P.CONS_ITS ---
History of Present Illness Consult details Date Patient Seen: 06/24/23 Time Patient Seen: 16:50 Chief complaint: Screaming,yelling and manic,hx bipolar Reason for consult: Mental status changes Requesting provider: Edgar Thorpe Narrative: This is the [address] [place] [address] Psychiatry evaluation, but the latest in several episodes of emergency department visits followed by admission for this 73-year-old female who was brought in by her for mental status changes. The patient is unable to provide any sort of a coherent history gather from chart notes and collateral observations. Note, I saw the patient for very similar presentation in March of 2020 and attention is directed to that note for other information as well. The patient has a very long history of bipolar disorder that dates back many years including at least 4 psychiatric hospitalizations with the most recent about 8 years ago. Apparently the patient was tried on a number of different medications ultimately started on lithium. Four years ago I noted that the patient's reported that there was an almost magical transformation from severe depression to a very functional individual. The patient has had previous trials of numerous antidepressants all of which failed and notably developed allergic reactions to imipramine and desipramine. The patient has had several ED visits followed by admission in the last few months. Similar to when I saw the patient four years ago, her most recent presentation appears to be related to poor nutritional intake, complaints of nausea, and resulting hyponatremia with mental status changes. Also similar to her previous presentation we note that the patient's medications appear to be managed by her , but occasionally the patient will apparently get up in the middle of the night and take extra doses. The last time I saw her, she had been admitted for becoming toxic on lithium. And we are unclear on exactly how this occurred. Most recently, the patient has continued to present in a somewhat confused manner. I saw her 3 times over the last 24 hours and the patient has been unable to even complete a basic mental status exam. She is responsive to her name, once was able to report her date of , has difficulty sometimes with knowing where she is, or even if she is in the hospital. She often seems confused and disoriented and nursing staff notices that there has a somewhat waxing and waning nature to her mental state. Meds Home Medications and Allergies Home Medications Medication Instructions Recorded Confirmed Type amlodipine 10 mg tablet 10 mg PO BEDTIME 03/06/20 06/21/23 History quetiapine 300 mg tablet 300 mg PO BEDTIME 07/13/21 06/21/23 History metoclopramide HCl 10 mg tablet 10 mg PO Q6H PRN nausea and 08/27/21 06/21/23 Rx (Reglan) vomiting #14 tabs atorvastatin 20 mg tablet 20 mg PO BEDTIME 04/22/22 06/21/23 History betamethasone dipropionate 0.05 % 0.05 applic topical BID eczema 04/22/22 06/21/23 History topical cream oxycodone 5 mg tablet 5 mg PO TID PRN pain 04/22/22 06/21/23 History ondansetron 4 mg disintegrating 4 mg PO Q8H PRN nausea and 05/08/22 06/21/23 Rx tablet vomiting #14 tabs levothyroxine 75 mcg tablet 75 mcg PO DAILY@0600 #30 tabs 05/13/22 06/21/23 Rx (Synthroid) Calcium 500 1 tab PO BEDTIME 06/13/23 06/21/23 History lorazepam 1 mg tablet 0.5 mg PO 3XD 06/13/23 06/21/23 History gabapentin 300 mg capsule 300 mg PO BID 06/21/23 06/21/23 History Allergies Allergy/AdvReac Type Severity Reaction Status Date / Time Sulfa (Sulfonamide Allergy Unknown Verified 06/13/23 18:05 Antibiotics) desipramine Allergy Rash Verified 06/13/23 18:05 Review of Systems Review of Systems ROS: Yes unobtainable due to mental status Exam Vital Signs (past 8 hours): - 06/24/23 12:00 06/24/23 12:40 Temperature 98.0 F Pulse Rate 105 H Respiratory Rate 17 Blood Pressure 134/64 Pulse Oximetry 100 Oxygen Flow Rate 0 Oxygen Delivery Method Room Air Oxygen Flow Rate 0 Narrative Exam Narrative: MENTAL STATUS EXAM * Appearance: The patient is well-developed and well-nourished female who appears stated age. * Grooming: Patient seen sitting up in her hospital bed most recently eating lunch and appearing somewhat disheveled even with hospital garb. * Eye Contact: Poor * Behavior: Calm, but minimally cooperative with the examination. * Motor Movement: No abnormal motor movements noted. * Gait: Not test * Speech: Normal rate, volume, tone, and aby. * Mood: Unable to state * Affect: Mildly dysphoric, slightly anxious, somewhat confused. Congruent with thought content. * Thought Process: Tangential, disorganized * Thought Content: No apparent suicidal or homicidal ideation, intent, or plan. Did not appear to be responding to internal stimuli such as hallucinations or delusions. * Attention: Barely attentive to the interview her * Orientation: Oriented to her name only * Memory: Poor for interview. Not formally tested * Insight: Poor * Judgment: Poor * Impulse Control: Poor Objective Labs 06/23/23 10:15 06/23/23 10:15 [facility] Medical History Eczema Hypothyroidism (acquired) Bipolar disorder Hypertension Surgical History Hx of cholecystectomy Family History Mother Alcohol abuse Father CVA (cerebral vascular accident) Social History household members: spouse Tobacco & Substance Use Smoking Status: Never smoker alcohol intake: former Assessment & Plan Assessment and plan (1) Bipolar 1 disorder with moderate gemini: Status: Acute (2) Encephalopathy acute: Status: Acute Plan The patient is a 73-year-old female with bipolar disorder discovered after a significant history of depression for many years with difficulty finding the correct treatment until being treated with lithium 8 years ago. Most recently, she has been on quetiapine and relatively stable with respect to mood/bipolar. In the last three months, she has been admitted four times times for mental status changes often related to hyponatremia and other medical complications. Since she had been fairly stable on quetiapine, would recommend that we return to that while stabilizing her other medical issues. Recommendations: 1. Continue quetiapine 300 mg p.o. q.h.s. 2. Continue quetiapine 50 mg p.o. q.a.m. for the time being. If stable once lorazepam has been change to as needed, then discontinue quetiapine a.m. dose. 3. Recommend minimizing lorazepam 1 mg p.o. t.i.d. as needed only for severe agitation. 4. Consider engaging social work to engage with patient's for possible placement if unable to return home. 5. Will continue to follow with you. Time Spent With Patient Time with patient: 50 to 69 minutes with 50% spent counseling/coordinating care
[2023-06-24] MEDS: LORazepam 2 MG/ML INJ 1 MG IV ×2 (18:28→22:05)
[2023-06-24] MEDS: ATORVASTATIN 20 MG TABLET PO (20:01)
[2023-06-24] MEDS: QUETIAPINE 100 MG TABLET 300 MG PO (20:01)
[2023-06-24] MEDS: SENNOSIDES 8.6 MG TABLET 17.2 MG PO (20:01)
[2023-06-25] VITALS (25 sets, daily range): BP systolic 119–128; BP diastolic 61–76; PULSE 67–118; RESP 18–20; TEMP 36.4–36.7; O2SAT 96–100
[2023-06-25] MEDS: LORazepam 2 MG/ML INJ 1 MG IV (01:32)
[2023-06-25] MEDS: OXYCODONE IR 5 MG TABLET PO (02:11)
--- NOTE | 2023-06-25 08:59 | SLP.IPNOTE ---
[employer]W MEMBER attempted to see patient around 8:20am. Pt sleeping with nursing reporting Pt did not fall asleep until around 2:30am-3:00am and that she has not been resting well in general. Nursing recommended to let patient sleep and to try again later. [employer]W MEMBER to f/u later today.
[2023-06-25] MEDS: CEFEPIME 1 GM in SODIUM CHLORIDE 0.9% 100 ML IV ×2 (10:46→20:25)
[2023-06-25] MEDS: POTASSIUM CHLORIDE 20 MEQ TAB 40 MEQ PO (10:47)
[2023-06-25] MEDS: SODIUM CHLORIDE 0.9% FLUSH 10 ML IV ×2 (10:47→20:26)
[2023-06-25] MEDS: HEPARIN 5,000 UNIT/ML VIAL 5000 UNIT SUBCUT ×2 (10:47→20:25)
[2023-06-25] MEDS: LEVOTHYROXINE 75 MCG TABLET PO (10:47)
[2023-06-25] MEDS: ACETAMINOPHEN 325 MG TABLET 650 MG PO (10:48)
[2023-06-25] MEDS: LORazepam 1 MG TABLET 0.5 MG PO (10:48)
[2023-06-25] MEDS: QUETIAPINE 25 MG TABLET 50 MG PO (10:48)
--- NOTE | 2023-06-25 11:25 | PT.IIE ---
Current Diagnoses Hypothyroidism, unspecified (06/21/23) Bipolar disorder, current episode manic without psychotic features, moderate (06/21/23) Essential (primary) hypertension (06/21/23) Acute kidney failure, unspecified (06/21/23) Surgical History (Last Reviewed 06/21/23 @ 21:53 by Edvin Lr MD) Hx of cholecystectomy Medical History (Last Updated 06/21/23 @ 21:55 by Edvin Lr MD) Bipolar disorder Eczema Hypertension Hypothyroidism (acquired) Physical Therapy Inpatient Evaluation/Re-Eval M1 PT/OT-IP Prior Functional Status Start: 06/25/23 12:57 Freq: NEEDED Status: Active Protocol: Document 06/25/23 11:25 AB (Rec: 06/25/23 13:14 AB [id number]) Medical Review Prior Functional Status Medical History Reviewed Yes Communication able to answer questions but needs repetions of questions and increase time to respond Mobility and Gait pt stated that she was modified independent with all mobilities and ambulation using a 4WW Social History Household Members spouse Living Arrangements House Number of Floors (Floors) One Floor Number of Stairs To Enter/Railing? 3 steps R rail ascending to enter the house Home Environment Standard Height Toilet,Walk in Shower Home Equipment Four Wheel Walker,Shower Seat with Backrest,Hand Held Shower ,Grab Bars Near Toilet,Grab Bars In Shower Additional Social History Comment pt stated that spouse works and she is usually home alone M2 PT-IP Current Condition Start: 06/25/23 12:57 Freq: NEEDED Status: Active Protocol: Document 06/25/23 11:25 AB (Rec: 06/25/23 13:14 AB [id number]) Physical Therapy Current Condition Current Condition Evaluation Date 06/25/23 Treatment Diagnosis VELASQUEZ; acute encephalopathy; difficulty in walking Onset Date 06/21/23 M3 PT-IP Subjective Start: 06/25/23 12:57 Freq: NEEDED Status: Active Protocol: Document 06/25/23 11:25 AB (Rec: 06/25/23 13:14 AB [id number]) Subjective Physical Therapy Visit Type Type Initial Evaluation Visit Start Time 11:25 Visit Stop Time 11:50 Number of CAN TECHNICIAN Visits 25 Physical Therapy Visit Comments Patient Comments pt is very emotionally and needs frequent cues to focus task at hand and needs constant reassurance Therapy Pain Assessment Pain When Pain Assessed At Rest Location Bilateral Knee Intensity 6 Scale Used Numeric (0 - 10) Pain Management Techniques Distraction,Modification of Treatment Lower Back Intensity 6 Scale Used Numeric (0 - 10) Pain Management Techniques Distraction,Modification of Treatment M4 PT-IP Mobility and Gait Start: 06/25/23 12:57 Freq: NEEDED Status: Active Protocol: Document 06/25/23 11:25 AB (Rec: 06/25/23 13:14 AB [id number]) PT-Bed Mobility Assessment Supine to Sit Supine to Sit Minimal Assistance PT-Transfer Assessment Sit to and From Stand Sit to and from Stand Moderate Assistance,Maximum Assistance,1 Person Assistance ,Use of Upper Extremities Equipment Transfer Assistive Device Gait Belt,Front Wheeled Walker Orthotic/Prosthetic Devices or Brace: No Transfers Transfer Destination Chair Transfer Technique ambulated Transfer Ability Level of Assist Moderate Assistance,Maximum Assistance,1 Person Assistance ,Use of Upper Extremities Comments Mobility Comments pt supine in bed. pt with confusion and emotionally with bouts of crying during PT session. pt needs cues for redirections. pt completed supine to sit min A and cues. pt tends to grab on pt for support. cued pt for safety. pt also presents with increase fear of falling. pt completed sit to stand mod to max A and max cues and ambulated in room ~ 15 ft using FWW min A to mod A and max cues. pt sat on the chair . positioned pt on the chair. call light and table placed within reach. chair alarm on. Left pt with NAC Gait Assessment Gait Gait Assistance Required: Minimum Assistance,Moderate Assistance Distance (Feet) 15 Assistive Devices Assistive Device Gait Belt,Front Wheeled Walker Orthotic/Prosthetic Devices or Brace: No Gait Deviations General Gait Pattern Ataxic,Decreased Stride Length ,Decreased Feet Clearance Factors Limiting Gait Function Factors Limiting Gait Function Decreased Activity Tolerance, Decreased Strength,Difficulty Following Directions,Poor Balance,Poor Safety Awareness PT-Balance Assessment Sitting Balance and Reactions Static Sitting Balance Ability Good Dynamic Sitting Balance Ability Fair Standing Balance and Reactions Static Standing Balance Ability Fair Dynamic Standing Balance Ability Poor Device Used FWW M5 PT-IP Objective Assessments Start: 06/25/23 12:57 Freq: NEEDED Status: Active Protocol: Document 06/25/23 11:25 AB (Rec: 06/25/23 13:14 AB [id number]) Orientation Orientation/Cognition Level of Alertness Confusional State Orientation Name Language Function Ability No Deficits Noted Safety Awareness Decreased Safety Awareness Memory Description Short Term Impaired Gross Range of Motion Lower Extremity ROM Assessment Within Functional Limits Strength Comments Strength Comments MMT not tested due to pt not following directions but seems to have 4-/5 strength on BLE during mobility Muscle Tone Muscle Tone WNL Yes M6 PT-IP Treatment Start: 06/25/23 12:57 Freq: NEEDED Status: Active Protocol: Document 06/25/23 11:25 AB (Rec: 06/25/23 13:14 AB [id number]) Physical Therapy Treatment Education Education Provided Safety M7 PT-IP Assessment and Plan Start: 06/25/23 12:57 Freq: NEEDED Status: Active Protocol: Document 06/25/23 11:25 AB (Rec: 06/25/23 13:14 AB [id number]) PT Summary Assessment and Plan Potential Rehabilitation Potential Fair Status of Condition at Evaluation Evolving Summary Impairments Pain,ROM,Strength,Balance, Coordination,Sensation,Tone, Cognition,Bed Mobility, Transfers,Gait,Activity Tolerance Assessment Summary pt is a 73 y/o F who presented to the ED for confusion/ yelling/screaming. pt has h/o bipolar d/o and pt with recent bunion sx 06/08/23 per EMR and has been off her medication. pt admitted for VELASQUEZ and acute encehalopathy. pt continues to have confusion requiring max cues with all tasks. pt requiring mod to max A and max cues for transfers using fWW, min to mod A for ambulation using FWW . pt requires 24/7 assist and at this time, will require SNF rehab depending on progress. will continue to assess. Goals Bed Mobility Goal Independent Transfer Goal Independent,Front Wheeled Walker Gait Goal Independent,Front Wheel Walker Gait Distance 200 Other Goals improve transfers and ambulation using 4WW 250 ft mod I up/down 3 steps using R rail ascending SBA Days to Meet Goals 10 Frequency of Treatment Frequency Of Treatment Once a Day Treatment Plan Physical Therapy Treatment Plan Bed Mobility Training,Transfer Training,Gait Training, Therapeutic Exercise,Balance Retraining,Post Op Education, Discharge Planning,Hot or Cold Pack,Neuromuscular Re-ed, Coordination Retraining,Manual Therapy Precautions Other Precautions falls; MRSA:Nares contact precautions Recommendations To Nursing Amount of Assist Needed 1 Person Assist Discharge Recommendations PT Discharge Recommendations Home with 24/7 Assist Available,Home Health,SNF Rehab,Home vs SNF Equipment Needed for Home Before FWW if not safe with 4WW Discharge Transportation Needs at Discharge Private Vehicle,Wheelchair/ Cabulance
--- NOTE | 2023-06-25 11:26 | SLP.IPNOTE ---
VICE CHANCELLOR attempted to initiate tx at 1120am. Pt had just started working with PT to attempt getting out of bed. Will re-attempt tx in pm if possible.
--- NOTE | 2023-06-25 15:30 | PM.PN.1 ---
Subjective Subjective Interval history: Patient more oriented, now to name and hospital, She is pretty somnolent but arousable and answering questions. Discussed with Dr. Alvarez and will change ativan to prn and if she is not further improved tomorrow can stop morning quetiapine. Exam Vital Signs (past 8 hours): - 06/25/23 08:00 06/25/23 08:30 06/25/23 09:00 Temperature Pulse Rate 68 68 67 Respiratory Rate Blood Pressure Pulse Oximetry 99 99 99 Oxygen Delivery Method 06/25/23 09:30 06/25/23 10:00 06/25/23 10:00 Temperature Pulse Rate 71 114 H Respiratory Rate Blood Pressure Pulse Oximetry 98 100 Oxygen Delivery Method Room Air 06/25/23 10:11 06/25/23 10:11 06/25/23 10:27 Temperature 98.0 F Pulse Rate 91 H Respiratory Rate 20 Blood Pressure 119/61 Pulse Oximetry 100 Oxygen Delivery Method Oxygen Delivery Method Room Air Oxygen Flow Rate 0 Const Other: laying in bed, oriented to name and hospital. Resp Other: CTA Cardio Other: RRR GI Other: abdomen not distended Skin Other: mild toe erythema around stitches, but no tenderness or warmth,. Objective Labs 06/23/23 10:15 06/23/23 10:15 PFSH Medical History Eczema Hypothyroidism (acquired) Bipolar disorder Hypertension Surgical History Hx of cholecystectomy Family History Mother Alcohol abuse Father CVA (cerebral vascular accident) Social History household members: spouse Smoking Status: Never smoker alcohol intake: former Assessment & Plan Assessment & Plan narrative: Bipolar 1 Disorder with moderate gemini on admission - off Seroquel in the last ~ 10 days prior to admission - given 10 mg of IV Zyprexa in ER - continue Seroquel 300 mg qHS, 50mg in morning and Ativan 0.5 mg tid though reduce ativan to prn to help with slight somnolence today. If not improved tomorrow can stop seroquel morning dose after discussion with Dr. Alvarez, psychiatry today. - prn Ativan iv for agitation - discussed with dr. alvarez, patient has past history of lithium toxicity and has seen him in the past. Unclear if this is medication withdrawal, bipolar disorder, metabolic encephalopathy, etc. Will work on medications as discussed above to reduce somnolence the last few days. Transient hypotension - likely due to sedatives given in ED - now weaned off levophed Recent Toe Sx - w/o complications, mild surrounding erythema today but no tenderness or warmth. VELASQUEZ, improving - received 3L NS in ED - prerenal, poor oral intake - now drinking so IVF stopped hypertension - Norvasc 10 mg daily at home - hypotensive after 2 L of NS - norvasc on hold due to VELASQUEZ - w/o leukocytosis or fever, Sx site healing well, adding LA, BCs, troponin, ECG Hypothyroidism - levothyroxine 75 mcg daily - TSH normal HLD - statin DVT prophylaxis - heparin Dispo: Likely home vs SNF, will have PT assess. She will not likely be a SNF candidate but if psychiatrically improved / stable on resumption of her medications may be a possibility. Quality VTE Deep Vein Thrombosis/Pulmonary Embolism Present on Admission: No
[2023-06-25] MEDS: ATORVASTATIN 20 MG TABLET PO (20:25)
[2023-06-25] MEDS: QUETIAPINE 100 MG TABLET 300 MG PO (20:26)
[2023-06-26 04:00] VITALS: BP 137/69; PULSE 118; RESP 18; TEMP 36.7; O2SAT 96
[2023-06-26 05:44] LABS: BUN Creatinine Ratio 18.2 (6-22); Blood Urea Nitrogen 18 mg/dL (7-17); Calcium 10.1 mg/dL (8.4-10.2); Carbon Dioxide 23 mmol/L (22-32); Chloride 105 mmol/L (98-107); Estimated Glomerular Filt Rate > 60 mL/min (>60); Glucose 110 mg/dL (80-110); HEMOLYSIS < 15 (0-50); Potassium 4.4 mmol/L (3.4-5.1); Sodium 139 mmol/L (137-145)
[2023-06-26] MEDS: LEVOTHYROXINE 75 MCG TABLET PO (05:49)
[2023-06-26] MEDS: OXYCODONE IR 5 MG TABLET PO ×2 (06:00→14:36)
--- NOTE | 2023-06-26 06:36 | PC.NURSE ---
Addendum entered by Ana Reis R.N. 06/26/23 06:50: pt pulled out bilat periph IV sites overnight, unable to restart them, no U/S starter available overnight Original Note: hourly shift manager RN note pt confused most of the night, oriented only to self, labile moods from happy to teary, frequent reorientation, bed alarm on, uses call cooley, wanted to speak with spouse, he was called and message left with no return call, up to commode with one assist frequently, meds and labs as ordered
--- NOTE | 2023-06-26 07:43 | PM.PN.1 ---
Subjective Subjective Interval history: She slept last night, and feels more calm today. She denies any hallucinations. She is still somewhat anxious. She also denies any shortness a breath. Exam Vital Signs (past 8 hours): - 06/26/23 04:00 Temperature 98.0 F Pulse Rate 118 H Respiratory Rate 18 Blood Pressure 137/69 Pulse Oximetry 96 Oxygen Flow Rate 0 Oxygen Delivery Method Room Air Oxygen Flow Rate 0 Narrative Exam Narrative: NAD, fluent speech. Anicteric sclera, EOMI. Lungs are clear, normal effort and rate. Heart is regular, without murmur. Abdomen is non distended. Extremities are free of edema. Speech is not pressured. Objective Labs 06/23/23 10:15 06/26/23 05:20 Labs: Laboratory Results - last 24 hr 06/26/23 05:20 Sodium 139 Potassium 4.4 Chloride 105 Carbon Dioxide 23 BUN 18 H Creatinine 0.99 Estimated GFR > 60 BUN/Creatinine Ratio 18.2 Glucose 110 Calcium 10.1 PFSH Medical History Eczema Hypothyroidism (acquired) Bipolar disorder Hypertension Surgical History Hx of cholecystectomy Family History Mother Alcohol abuse Father CVA (cerebral vascular accident) Social History household members: spouse Smoking Status: Never smoker alcohol intake: former Assessment & Plan Assessment & Plan narrative: Bipolar 1 Disorder with moderate gemini on admission, improving. - off Seroquel in the last ~ 10 days prior to admission - given 10 mg of IV Zyprexa in ER - continue Seroquel 300 mg qHS, 50mg in morning and Ativan 0.5 mg tid though reduce ativan to prn to help with slight somnolence today. If not improved tomorrow can stop seroquel morning dose after discussion with Dr. Alvarez, psychiatry today. - prn Ativan iv for agitation - discussed with Dr. alvarez, patient has past history of lithium toxicity and has seen him in the past. Unclear if this is medication withdrawal, bipolar disorder, metabolic encephalopathy, etc. Will work on medications as discussed above to reduce somnolence the last few days. Transient hypotension, resolved. - likely due to sedatives given in ED - now weaned off levophed Recent Toe Sx, active. - w/o complications, mild surrounding erythema today but no tenderness or warmth. VELASQUEZ, resolved. - received 3L NS in ED - prerenal, poor oral intake - now drinking so IVF stopped hypertension, not active. - Norvasc 10 mg daily at home - hypotensive after 2 L of NS - norvasc on hold due to VELASQUEZ - w/o leukocytosis or fever, Sx site healing well, adding LA, BCs, troponin, ECG Hypothyroidism, stable. - levothyroxine 75 mcg daily - TSH normal HLD, stable. - statin DVT prophylaxis - heparin Dispo: Likely home vs SNF, will have PT assess. She will not likely be a SNF candidate but if psychiatrically improved / stable on resumption of her medications may be a possibility. Time Spent With Patient Time with patient: 30 to 49 minutes with 50% spent counseling/coordinating care Quality VTE Deep Vein Thrombosis/Pulmonary Embolism Present on Admission: No
[2023-06-26 07:55] VITALS: BP 124/73; PULSE 109; RESP 18; TEMP 36.6; O2SAT 100
[2023-06-26] MEDS: POTASSIUM CHLORIDE 20 MEQ TAB 40 MEQ PO (09:05)
[2023-06-26] MEDS: HEPARIN 5,000 UNIT/ML VIAL 5000 UNIT SUBCUT ×2 (09:05→20:56)
[2023-06-26] MEDS: QUETIAPINE 25 MG TABLET 50 MG PO (09:06)
[2023-06-26] MEDS: NITROFURANTOIN ER 100 MG CAPSULE PO ×2 (12:29→20:56)
--- NOTE | 2023-06-26 13:12 | ST.IPTN ---
Visit Care Team Role Provider Type REBECA Garcia Primary Care Provider Non-Staff Address: [address] [facility], [place], [address] Grabiel Alvarez MD Other Providers Physician Address: [address] [place] [address], [address] , [place], [address] Elda Freedman MD Emergency Provider Physician Referring Provider Address: [address] [place] [address], [id number] Edvin Lr MD Admit Provider Physician Attending Provider Address: [address] [place] [address], [phone] Fax: MICROSTRATEGY ARCHITECT DEVELOPER Treatment Note MICROSTRATEGY ARCHITECT DEVELOPER Treatment Note Start: 06/26/23 08:57 Freq: Status: Active Protocol: Document 06/26/23 08:57 TOMER (Rec: 06/26/23 09:00 TOMER [id number]) Speech Pathology Treatment Note Session Time Visit Start Time 08:20 Visit Stop Time 08:50 Total Visit Minutes 30 Visit Information Visit Number 2 Setting Treatment Setting Acute Care Visit Type Note Type Initial Evaluation General Information Patient History Per H&P: 73 years old female with history of bipolar disorder, maintained on Seroquel 300 mg hs and Ativan 0.5 mg tid, hypertension, hyperlipidemia, hypothyroidism , history of opiate overdose with multiple admissions for hyponatremia, presented to the ER with altered mental status /confusion. She had a recent right toe surgery and after the surgery her medications were held and she became increasingly confused and was admitted few days ago. Diagnosed with metabolic encephalopathy, likely due to either medication withdrawal or OD. She went home with her but at home she was not taking her medications, was not eating and drinking enough and presented to ED agitated, dehydrated with similar VELASQUEZ just like few days ago. She was given Zyprexa in the ED. Admitted to medicine with likely manic episode due to non-compliance with medications. Pt referred for ST evaluation d/t reduced PO intake and to determine safest and most efficient least restrictive diet. Subjective Observations/Patient Presentation Pt sitting upright in bed, awake, alert and compliant with PO trials. Pt with increased alertness this date and more communicative with reduced emotional outbursts. Nursing reports Pt is demanding sandwiches including egg salad, peanut butter and jelly and grilled cheese sandwiches and is very upset she can't have them. Objective Treatment Activities Assessment of swallow function with therapeutic PO trial of regular solids and thin liquids Assessment Assessment of Improvement Pt sitting upright in bed with lunch tray. Pt oriented to self and place, however stated year as 1977. She exhibited increased alertness and communication. She was stating that at home she was eating sandwiches and whatever else she wanted and doesn't understand why she can't have that here. ST provided education in regards to Pt's medical status when she was admitted to hospital which resulted in lethargy and weakness impacting mastication abilities. ST educated Pt that she was put on the safest diet at that time. Pt reports she is feeling better now and wants to eat sandwiches, specifically grilled cheese sandwiches. ST presented Pt with a peanut butter sandwich and an egg salad sandwich. For the sandwiches she demonstrated small bites and difficulties masticating the pb&j d/t her reporting it was sticky. For egg salad sandwich she demonstrated small bites, prolonged mastication, adequate bolus formation, extended ap transport, mild-mod oral stasis, suspected delay in swallow, no overt s/s of aspiration. She independently alternated liquids/solids to assist with intake. No overt s /s of aspiration observed with thin liquids. She reports it takes her a while to chew, however she has no difficulties with it especially if she has something to drink while eating. ST educated Pt on safe swallowing strategies such has small bites, slow rate, sitting upright and alternating liquids/solids. Pt verbalized understanding. ST recommends diet upgrade to IDDSI 6- sandwiches okay, including grilled cheese sandwiches with thin liquids. ST communicated recommendations with nursing. ST recommends diet downgrade if Pt has changes in medical status.
--- NOTE | 2023-06-26 13:44 | PT.IPTN ---
Current Diagnoses Hypothyroidism, unspecified (06/21/23) Bipolar disorder, current episode manic without psychotic features, moderate (06/21/23) Encephalopathy, unspecified (06/21/23) Essential (primary) hypertension (06/21/23) Acute kidney failure, unspecified (06/21/23) Physical Therapy Treatment Note M2 PT-IP Current Condition Start: 06/25/23 12:57 Freq: NEEDED Status: Active Protocol: Document 06/25/23 11:25 AB (Rec: 06/25/23 13:14 AB [id number]) Physical Therapy Current Condition Current Condition Evaluation Date 06/25/23 Treatment Diagnosis VELASQUEZ; acute encephalopathy; difficulty in walking Onset Date 06/21/23 M3 PT-IP Subjective Start: 06/25/23 12:57 Freq: NEEDED Status: Active Protocol: Document 06/26/23 15:21 TS (Rec: 06/26/23 15:40 TS [id number]) Subjective Physical Therapy Visit Type Type Treatment Note Visit Start Time 13:44 Visit Stop Time 13:58 Number of EMBEDDED SYSTEMS SOFTWARE ENGINEER Visits 1 Physical Therapy Visit Comments Patient Comments Pt found resting in bed, spouse in room, pt reports needing to use toilet, is agreeable to PT. M4 PT-IP Mobility and Gait Start: 06/25/23 12:57 Freq: NEEDED Status: Active Protocol: Document 06/26/23 15:21 TS (Rec: 06/26/23 15:40 TS [id number]) PT-Bed Mobility Assessment Supine to Sit Supine to Sit Standby Assistance Sit to Supine Sit to Supine Standby Assistance Scooting Scooting to Edge of Bed Standby Assistance PT-Transfer Assessment Sit to and From Stand Sit to and from Stand Standby Assistance Equipment Transfer Assistive Device Gait Belt,Front Wheeled Walker Orthotic/Prosthetic Devices or Brace: No Comments Mobility Comments Supine to sit SBA with HOB elevated and use of BUE support. STS from bed SBA with use of FWW. She ambulated in room and to toilet ~15' SBA with FWW, pt reports fear of falling. After use of toilet, pt agreed to trial stairs. She took 1 step onto step stool and became emotional and agitated, pt requested back to bed. Pt was left back in bed, all needs met. Gait Assessment Gait Gait Assistance Required: Standby Assistance Distance (Feet) 15 Assistive Devices Assistive Device Gait Belt,Front Wheeled Walker Orthotic/Prosthetic Devices or Brace: No Gait Deviations General Gait Pattern Ataxic,Decreased Stride Length ,Decreased Feet Clearance Factors Limiting Gait Function Factors Limiting Gait Function Decreased Activity Tolerance, Decreased Strength,Difficulty Following Directions,Poor Balance,Poor Safety Awareness Comments Gait Comments See mobility comments Stair Climbing Assessment Comments Stair Climbing Comments pt initially agreeable to trial stairs. She became frighthened and did not complete. PT-Balance Assessment Sitting Balance and Reactions Static Sitting Balance Ability Good Dynamic Sitting Balance Ability Fair Standing Balance and Reactions Static Standing Balance Ability Fair Dynamic Standing Balance Ability Fair Device Used FWW M5 PT-IP Objective Assessments Start: 06/25/23 12:57 Freq: NEEDED Status: Active Protocol: Document 06/25/23 11:25 AB (Rec: 06/25/23 13:14 AB [id number]) Orientation Orientation/Cognition Level of Alertness Confusional State Orientation Name Language Function Ability No Deficits Noted Safety Awareness Decreased Safety Awareness Memory Description Short Term Impaired Gross Range of Motion Lower Extremity ROM Assessment Within Functional Limits Strength Comments Strength Comments MMT not tested due to pt not following directions but seems to have 4-/5 strength on BLE during mobility Muscle Tone Muscle Tone WNL Yes M6 PT-IP Treatment Start: 06/25/23 12:57 Freq: NEEDED Status: Active Protocol: Document 06/26/23 15:21 TS (Rec: 06/26/23 15:40 TS [id number]) Physical Therapy Treatment Education Education Provided Safety M7 PT-IP Assessment and Plan Start: 06/25/23 12:57 Freq: NEEDED Status: Active Protocol: Document 06/26/23 15:21 TS (Rec: 06/26/23 15:40 TS [id number]) PT Summary Assessment and Plan Potential Rehabilitation Potential Fair Summary Impairments Pain,ROM,Strength,Balance, Coordination,Sensation,Tone, Cognition,Bed Mobility, Transfers,Gait,Activity Tolerance Progress Towards Goals Progressing Toward Goals Assessment Summary Camilla made some progress with her mobility this sesson. She is SBA for bed mobility and STS with use of FWW. She ambulated in room ~15' CGA with use of FWW, demonstrates fair balance. She attempted to try 1 step on stepstool but became frightened and did complete. She continues to have confusion and poor safety awareness with her mobility. PT is recommending pt return home with 24/7 assistance. Goals Bed Mobility Goal Independent Transfer Goal Independent,Front Wheeled Walker Gait Goal Independent,Front Wheel Walker Gait Distance 200 Other Goals improve transfers and ambulation using 4WW 250 ft mod I up/down 3 steps using R rail ascending SBA Days to Meet Goals 10 Frequency of Treatment Frequency Of Treatment Once a Day Treatment Plan Physical Therapy Treatment Plan Bed Mobility Training,Transfer Training,Gait Training, Therapeutic Exercise,Balance Retraining,Post Op Education, Discharge Planning,Hot or Cold Pack,Neuromuscular Re-ed, Coordination Retraining,Manual Therapy Precautions Other Precautions falls; MRSA:Nares contact precautions Recommendations To Nursing Amount of Assist Needed Standby Assistance,1 Person Assist Discharge Recommendations PT Discharge Recommendations Home with 24/7 Assist Available,Home Health Equipment Needed for Home Before FWW if not safe with 4WW Discharge Transportation Needs at Discharge Private Vehicle,Wheelchair/ Cabulance
[2023-06-26] MEDS: ACETAMINOPHEN 325 MG TABLET 650 MG PO (14:36)
--- NOTE | 2023-06-26 14:48 | PC.NURSE ---
Day Shift Pt moved to room 215 at this time via wheelchair and all belongings, including glasses. at bedside with pt. Pt mood is labile at times, very tearful with change in room but left settled in bed. Oriented to self and place. Bed alarm is on. IV line is ok to leave out per Dr. Whiteside. Call light within reach.
[2023-06-26 15:00] VITALS: BP 119/76; PULSE 89; RESP 18; TEMP 36.4; O2SAT 99
--- NOTE | 2023-06-26 17:10 | P.PN_ITS ---
Subjective Subjective Date Patient Seen: 06/26/23 Time Patient Seen: 16:50 Interval history: The patient reports feeling much better. He was seen in her hospital room sitting up in her bed reading her tablet and interacted in a coherent inappropriate manner. She reports feeling much more alert, with it, inappropriate. She does not remember much in the days leading up to her admission and can not provide too much history as she reports feeling quite confused during that time. Currently alert, oriented, able to carry on a coherent conversation and reports doing much better. Exam Vital Signs (past 8 hours): - 06/26/23 15:00 Temperature 97.5 F L Pulse Rate 89 Respiratory Rate 18 Blood Pressure 119/76 Pulse Oximetry 99 Oxygen Delivery Method Room Air Oxygen Flow Rate 0 Narrative Exam Narrative: MENTAL STATUS EXAM * Appearance: The patient is well-developed and well-nourished female who appears stated age. * Grooming: neatly dressed in hospital attire and adequately groomed. * Eye Contact: Good * Behavior: Calm and cooperative with the examination. * Motor Movement: No abnormal motor movements noted. * Gait: Not tested * Speech: Normal rate, volume, tone, and aby. * Mood: Much better. * Affect: Pleasant, smiling, generally euthymic. Congruent with thought content and with normal range and reactivity. * Thought Process: Linear, logical, and goal-directed. * Thought Content: No SI/HI, intent, or plan. No evidence of a thought or perceptual disturbance. * Attention: Attentive to interview * Orientation: Oriented to person, place, time, and circumstance. * Memory: Intact for interview, not formally tested. * Insight: Fair * Judgment: Fair * Impulse Control: Intact. Objective Labs 06/23/23 10:15 06/26/23 05:20 Labs: Laboratory Results - last 24 hr 06/26/23 05:20 Sodium 139 Potassium 4.4 Chloride 105 Carbon Dioxide 23 BUN 18 H Creatinine 0.99 Estimated GFR > 60 BUN/Creatinine Ratio 18.2 Glucose 110 Calcium 10.1 [facility] Medical History Eczema Hypothyroidism (acquired) Bipolar disorder Hypertension Surgical History Hx of cholecystectomy Family History Mother Alcohol abuse Father CVA (cerebral vascular accident) Social History household members: spouse Smoking Status: Never smoker alcohol intake: former Assessment & Plan Assessment and plan (1) Bipolar 1 disorder with moderate gemini: Status: Acute (2) Encephalopathy acute: Status: Acute Plan The patient is a 73-year-old female with bipolar disorder discovered after a significant history of depression for many years with difficulty finding the correct treatment until being treated with lithium 8 years ago. Most recently, she has been on quetiapine and relatively stable with respect to mood/bipolar. In the last three months, she has been admitted four times times for mental status changes often related to hyponatremia and other medical complications. Recommendations: 1. Continue quetiapine 300 mg p.o. q.h.s. 2. Appears to be stable off lorazepam would recommend discontinuing a.m. dose of quetiapine. 3. Recommend minimizing lorazepam 1 mg p.o. t.i.d. as needed only for severe agitation. 4. Consider discharge to home once medically cleared. 5. Recommend patient be discharged on quetiapine 300 mg p.o. q.h.s. alone and referred back to her PCP and psychiatric provider for further follow-up. Time Spent With Patient Time with patient: less than 30 minutes Quality VTE Deep Vein Thrombosis/Pulmonary Embolism Present on Admission: No
[2023-06-26] MEDS: polyethylene glycoL 3350 17 GM POWD.PACK PO (20:55)
[2023-06-26] MEDS: ATORVASTATIN 20 MG TABLET PO (20:56)
[2023-06-26] MEDS: QUETIAPINE 100 MG TABLET 300 MG PO (20:56)
[2023-06-26] MEDS: SENNOSIDES 8.6 MG TABLET 17.2 MG PO (20:56)
[2023-06-26] MEDS: LORazepam 0.5 MG TABLET PO (21:31)
[2023-06-26 23:00] VITALS: BP 121/69; PULSE 85; RESP 19; TEMP 36.4; O2SAT 99
[2023-06-27] MEDS: ONDANSETRON 4 MG ODT PO (04:46)
[2023-06-27 04:49] LABS: BUN Creatinine Ratio 16.8 (6-22); Blood Urea Nitrogen 17 mg/dL (7-17); Calcium 11.3 mg/dL (8.4-10.2); Carbon Dioxide 23 mmol/L (22-32); Chloride 103 mmol/L (98-107); Estimated Glomerular Filt Rate 59 mL/min (>60); Glucose 92 mg/dL (80-110); HEMOLYSIS < 15 (0-50); Potassium 4.5 mmol/L (3.4-5.1); Sodium 139 mmol/L (137-145)
[2023-06-27] MEDS: LEVOTHYROXINE 75 MCG TABLET PO (05:28)
--- NOTE | 2023-06-27 07:35 | PM.PN.1 ---
Subjective Subjective Interval history: Exam Vital Signs (past 8 hours): Oxygen Delivery Method Room Air Oxygen Flow Rate 0 Narrative Exam Narrative: Objective Labs 06/23/23 10:15 06/27/23 04:12 Labs: Laboratory Results - last 24 hr 06/27/23 04:12 Sodium 139 Potassium 4.5 Chloride 103 Carbon Dioxide 23 BUN 17 Creatinine 1.01 Estimated GFR 59 L BUN/Creatinine Ratio 16.8 Glucose 92 Calcium 11.3 H PFSH Medical History Eczema Hypothyroidism (acquired) Bipolar disorder Hypertension Surgical History Hx of cholecystectomy Family History Mother Alcohol abuse Father CVA (cerebral vascular accident) Social History household members: spouse Smoking Status: Never smoker alcohol intake: former Assessment & Plan Assessment & Plan narrative: Bipolar 1 Disorder with moderate gemini on admission, improving. - off Seroquel in the last ~ 10 days prior to admission - given 10 mg of IV Zyprexa in ER - continue Seroquel 300 mg qHS, stop dose of 50mg in morning and Ativan 0.5 mg tid - discussed with Dr Alvarez today face to face. - prn Ativan iv for agitation Transient hypotension, resolved. - likely due to sedatives given in ED - now weaned off levophed Recent Toe Sx, active. - w/o complications, mild surrounding erythema today but no tenderness or warmth. VELASQUEZ, resolved. - received 3L NS in ED - prerenal, poor oral intake - now drinking so IVF stopped Hypertension, not active. - Norvasc 10 mg daily at home - hypotensive after 2 L of NS - norvasc on hold due to VELASQUEZ - w/o leukocytosis or fever, Sx site healing well, adding LA, BCs, troponin, ECG Hypothyroidism, stable. - levothyroxine 75 mcg daily - TSH normal HLD, stable. - statin DVT prophylaxis - heparin Time Spent With Patient Time with patient: 30 to 49 minutes with 50% spent counseling/coordinating care Quality VTE Deep Vein Thrombosis/Pulmonary Embolism Present on Admission: No
[2023-06-27] MEDS: NITROFURANTOIN ER 100 MG CAPSULE PO (08:15)
[2023-06-27] MEDS: HEPARIN 5,000 UNIT/ML VIAL 5000 UNIT SUBCUT (08:16)
[2023-06-27] MEDS: POTASSIUM CHLORIDE 20 MEQ TAB 40 MEQ PO (08:16)
[2023-06-27 08:58] VITALS: BP 116/77; PULSE 114; RESP 16; TEMP 36; O2SAT 99
--- NOTE | 2023-06-27 09:36 | ST.IPTN ---
Visit Care Team Role Provider Type REBECA Garcia Primary Care Provider Non-Staff Address: [address] [facility], [place], [address] Grabiel Alvarez MD Other Providers Physician Address: [address] [place] [address], [address] , [place], [address] Elda Freedman MD Emergency Provider Physician Referring Provider Address: [address] [place] [address], [address] Edvin Lr MD Admit Provider Physician Attending Provider Address: [address] [place] [address], [id number] Fax: TELECOMMUNICATIONS ANALYST Treatment Note TELECOMMUNICATIONS ANALYST Treatment Note Start: 06/26/23 08:57 Freq: Status: Active Protocol: Document 06/27/23 09:27 CG (Rec: 06/27/23 09:36 CG [id number]) Speech Pathology Treatment Note Session Time Visit Start Time 09:10 Visit Stop Time 09:22 Total Visit Minutes 12 Visit Information Visit Number 3 Setting Treatment Setting Acute Care Visit Type Note Type Treatment Note General Information Patient History Per H&P: 73 years old female with history of bipolar disorder, maintained on Seroquel 300 mg hs and Ativan 0.5 mg tid, hypertension, hyperlipidemia, hypothyroidism , history of opiate overdose with multiple admissions for hyponatremia, presented to the ER with altered mental status /confusion. She had a recent right toe surgery and after the surgery her medications were held and she became increasingly confused and was admitted few days ago. Diagnosed with metabolic encephalopathy, likely due to either medication withdrawal or OD. She went home with her but at home she was not taking her medications, was not eating and drinking enough and presented to ED agitated, dehydrated with similar VELASQUEZ just like few days ago. She was given Zyprexa in the ED. Admitted to medicine with likely manic episode due to non-compliance with medications. Pt referred for ST evaluation d/t reduced PO intake and to determine safest and most efficient least restrictive diet. Subjective Observations/Patient Presentation Pt found partially reclined in bed with breakfast tray present which included scrambled eggs, paraguayan toast, and a bowl of mandarin oranges . Pt agreeable to TELECOMMUNICATIONS ANALYST tx. Objective Treatment Activities Assessment of swallow function with therapeutic PO trial of regular solids and thin liquids as well as medications , which TELECOMMUNICATIONS ANALYST assisted in cutting in half. Education in universal swallow precautions including upright posture and small sips. Consulted MD keon casillas from . Assessment Patient Response to Treatment Excellent Rehab Potential Excellent Assessment of Improvement Pt sitting partially reclined in bed with breakfast tray. Pt was pleasant and agreeable but stated she was very tired and hoping to go to bed soon. Pt appeared to recall TELECOMMUNICATIONS ANALYST Jatinder visiting yesterday. She was able to easily engage in back and forth communication; receptive to humor. Pt was observed with trials of paraguayan toast and mandarin orange slices. Pt presented with good oral acceptance and containment, independent in self-feeding. Mastication was prolongued but appeared functional and A-P transit was within functional limits. Pt independently took small bites and utilized liquid wash. No overt s/sx aspiration were observed across trials of IDDSI 6 solids and IDDSI 0 thin liquids. TELECOMMUNICATIONS ANALYST assisted in cutting meds in half due to large size and not being coated. Pt was observed to swallow meds with water one at a time without overt s/sx aspiration. Provided education on the importance of upright posture during meals as the pt stated she had been lying back for meals, and pt verbalized understanding. Given sustained alertness and tolerance of diet, recommend DC from at this time unless there is a change in alertness/medical status. Hospitalist Dr. Whiteside signed off on d/c verbally. Reviewed with Patient Progress Being Made Patient/Caregiver Understanding Good
[2023-06-27] MEDS: OXYCODONE IR 5 MG TABLET PO (10:29)
[2023-06-27] MEDS: LOPERAMIDE 2 MG CAPSULE PO (11:09)
--- NOTE | 2023-06-27 12:43 | PM.DS.1 ---
History of Present Illness History of Present Illness Chief complaint: Screaming,yelling and manic,hx bipolar Narrative: From H&P: 73 years old female with history of bipolar disorder, maintained on Seroquel 300 mg hs and Ativan 0.5 mg tid, hypertension, hyperlipidemia, hypothyroidism, history of opiate overdose with multiple admissions for hyponatremia, presented to the ER with altered mental status/confusion. She had a recent right toe surgery and after the surgery her medications were held and she became increasingly confused and was admitted few days ago. Diagnosed with metabolic encephalopathy, likely due to either medication withdrawal or OD. She went home with her but at home she was not taking her medications, was not eating and drinking enough and presented to ED agitated, dehydrated with similar VELASQUEZ just like few days ago. She was given Zyprexa in the ED. Admitted to medicine with likely manic episode due to non-compliance with medications. Discharge Providers Provider Date of admission: 06/21/23 21:25 Discharge Date: 06/27/23 Primary care physician: REBECA Garcia Consults: 06/21/23 17:56 Consult to MANUFACTURING TEST ENGINEER - [employer] Stat Comment: 06/22/23 12:01 Consult to Speech Therapy Evaluate & Treat Comment: Physician Instructions: Evaluate and treat 06/24/23 10:55 Consult to Physician Routine Comment: Consulting Provider: Grabiel Alvarez Reason for consultation: Hx of Psych and med management recommendations 06/24/23 11:27 Consult to Physician Routine Comment: Consulting Provider: Grabiel Alvarez Reason for consultation: psychiatric diagnosis and medication adjustments 06/24/23 16:28 Consult to Physical Therapy Evaluate & Treat Comment: Physician Instructions: Evaluate and Treat Discharge provider: Griffin Whiteside MD Summary Hospital Course Discharge Diagnosis: Bipolar 1 Disorder with moderate gemini on admission, improving. - off Seroquel in the last ~ 10 days prior to admission - given 10 mg of IV Zyprexa in ER - continue Seroquel 300 mg qHS, 50mg in morning and Ativan 0.5 mg tid though reduce ativan to prn to help with slight somnolence today. If not improved tomorrow can stop seroquel morning dose after discussion with Dr. Alvarez, psychiatry today. - prn Ativan iv for agitation Transient hypotension, resolved. - likely due to sedatives given in ED - now weaned off levophed -hypovolemic Recent Toe Sx, active. - w/o complications, mild surrounding erythema today but no tenderness or warmth. VELASQUEZ, resolved. - received 3L NS in ED - prerenal, poor oral intake - now drinking so IVF was stopped hypertension, not active. - Norvasc 10 mg daily at home - hypotensive after 2 L of NS - norvasc on hold due to VELASQUEZ, resumed at time of discharge. - w/o leukocytosis or fever, Sx site healing well, adding LA, BCs, troponin, ECG Hypothyroidism, stable. - levothyroxine 75 mcg daily - TSH normal HLD, stable. - statin Hospital Course: The patient has history of bipolar and was initially admitted with altered mental status and agitation. This is in context of a recent right toe surgery. After the surgery her medications were apparently held and she became more confused and agitated. There is a concern that she had not been taking irregular Seroquel dose for several days prior to arrival. She was treated with Zyprexa in the emergency department and admitted with a probable manic episode. Psychiatry did consult in her Seroquel was restarted at 300 q.h.s.. She did have persistent paranoia and hallucinations. Her acute kidney injury was felt to relate to volume depletion and did improve with fluid resuscitation. Her blood pressure medications were restarted when her blood pressures had normalized. She was given an additional 50 mg of Seroquel in the morning and Ativan t.i.d. while she was getting back on her chronic 300 mg HS Seroquel dosing. Over the last 2 days of her admission she mentally improved and attained her baseline with a complete resolution of her paranoia and hallucinations. She did have 2 loose stools on the day of discharge but she did feel that she was at her baseline and was eager to be discharged home. Her was able to take her home and home health visiting nurse was arranged with eating. This is a resume in home health. Status at Discharge Cognitive/behavioral status at discharge: oriented Functional status at discharge: independent ambulation Overall status at discharge: patient is back to baseline Time Spent with Patient Time spent: Greater than 30 minutes Exam Vital Signs (past 8 hours): - 06/27/23 08:58 Temperature 96.8 F L Pulse Rate 114 H Respiratory Rate 16 Blood Pressure 116/77 Pulse Oximetry 99 Oxygen Delivery Method Room Air Oxygen Flow Rate 0 Narrative Exam Narrative: NAD. Fluent speech and normal affect. Lungs are clear with normal effort Heart is regular. Abdomen is non distended. Extremities are free of edema. Objective Imaging CT scan - head: Radiologist's impression: No acute intracranial pathology identified. No interval change. Chronic microvascular ischemic disease. 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 Labs 06/23/23 10:15 06/27/23 04:12 Labs: Laboratory Results - last 24 hr 06/27/23 04:12 Sodium 139 Potassium 4.5 Chloride 103 Carbon Dioxide 23 BUN 17 Creatinine 1.01 Estimated GFR 59 L BUN/Creatinine Ratio 16.8 Glucose 92 Calcium 11.3 H PFSH Medical History Eczema Hypothyroidism (acquired) Bipolar disorder Hypertension Surgical History Hx of cholecystectomy Family History Mother Alcohol abuse Father CVA (cerebral vascular accident) Social History household members: spouse Smoking Status: Never smoker alcohol intake: former Discharge Assessment & Plan Assessment and Plan Assessment: 1. Bipolar with gemini, improved. 2. Hypovolemic hypotension, resolved. 3. VELASQUEZ, resolved. 4. Hypertension, stable. 5. Hypothyroidism, stable. Plan of Treatment: Discharge home with resumption as Seroquel 300 HS. A refill is sent to the pharmacy. [facility] has resumed with a home visiting nurse. Discharge Plan Discharge Plan Patient Disposition: Home Health Service Transfer to: [facility] Provider Discharge Comment: Stable for [facility], Home health RN requested. Discharge orders & Medications Prescriptions: Continued levothyroxine [Synthroid] 75 mcg Tablet 75 mcg PO DAILY@0600 Qty: 30 0RF lorazepam 1 mg tablet 0.5 mg PO 3XD Calcium 500 500 MG 1 tab PO BEDTIME amlodipine 10 mg Tablet 10 mg PO BEDTIME metoclopramide HCl [Reglan] 10 mg tablet 10 mg PO Q6H PRN (Reason: nausea and vomiting) Qty: 14 0RF atorvastatin 20 mg tablet 20 mg PO BEDTIME betamethasone dipropionate 0.05 % cream 0.05 applic topical BID Patient Comments: Apply topically 2 (two) times a day oxycodone 5 mg Tablet 5 mg PO TID PRN (Reason: pain) ondansetron 4 mg tablet,disintegrating 4 mg PO Q8H PRN (Reason: nausea and vomiting) Qty: 14 0RF Patient Comments: Pt spouse stating that pt has never taken medication since post sx gabapentin 300 mg capsule 300 mg PO BID quetiapine 300 mg Tablet 300 mg PO BEDTIME Qty: 30 0RF Medication counseling provided by Pharmacist: No Follow up/Referrals: Dagmar Perdue ARNP [Primary Care Provider] - Diet/Activity/Treatments Diet: Diet as Tolerated Skin/Wound/Dressing Care Report to your healthcare provider any signs of infection, such as:: increased pain Visit Report/Discharge Packet Instructions: Acute Kidney Injury, DI for Bipolar Disorder Stand Alone Forms: Patient Portal/API, Stroke Signs & Symptoms Discharge Data Primary Care Provider: Dagmar Perdue Quality VTE Deep Vein Thrombosis/Pulmonary Embolism Present on Admission: No
--- NOTE | 2023-06-27 13:16 | PC.NURSE ---
Pt is dressed and ready for discharge home with Spouse. NO IV. Went over d/c instructions with Pt and Spouse-discussed d/c meds, time of last dose, reviewed stroke education, reminded Pt to drink plenty of fluids to prevent constipation or dehydration. Pt to follow up with PCP as needed. Both denied further questions and Pt will be taken out via w/c by [facility] PSYCHOLOGIST to POV with Spouse and all belongings.
--- NOTE | 2023-06-27 13:31 | CM.DPNOTE ---
DC Note According to conversation with provider and RN; patient has improved greatly and has been cleared for return home w/spouse to assist, close outpatient follow up. Met w/patient and spouse at bedside to review DCP. Patient exhibits slight confusion but able to maintain clear and goal directed conversation, patient states she is eager to return home. Discussed home health services. Patient/spouse report that [facility] been seeing patient and they would like HH services to be resumed. Both patient and spouse are agreeable to discharge plan. [facility]. GHAZAL
== END 2023-06-27 13:24 | disposition home health service (06) | DRG 885 ==
LOC: ED 21:21 → AC 21:26 → ICU 06-22 11:46 → AC 06-26 13:51
PROVIDERS: Emergency Medicine; Internal Medicine; Student in an Organized Health Care Education/Training Program; Admitting Provider Internal Medicine; Emergency Provider Emergency Medicine; PCP Nurse Practitioner Family; Referring Provider Emergency Medicine; Visit Provider Internal Medicine
DX: F31.12 Bipolar disorder, current episode manic without psychotic features, moderate (principal); N17.9 Acute kidney failure, unspecified; G93.40 Encephalopathy, unspecified; I10 Essential (primary) hypertension; E03.9 Hypothyroidism, unspecified; E78.5 Hyperlipidemia, unspecified; I95.89 Other hypotension
CPT/HCPCS: 36415; 70450; 73620; 80048; 80053; 80305; 80320; 80329; 81001; 83605; 83735; 84439; 84443; 84484; 85025; 87040; 87077; 87086; 87186; 87797; 90792; 92526; 92610; 93005; 93010; 96365; 96366; 96367; 96368; 96372; 96375; 97163; 97530; 99232; 99285; 99291; G0480; J0692; J0696; J1170; J1644; J2060; J3475; S0166

== ENCOUNTER 2023-07-14 00:39 | Inpatient (IN) | payer MEDICARE, SELFPAY ==
[2023-06-21 23:53] VITALS: BMI 25.6
[2023-07-14] VITALS (99 sets, daily range): BP systolic 78–181; BP diastolic 41–88; PULSE 41–135; RESP 11–36; TEMP 34.8–36.6; O2SAT 93–100; BMI 23.6; BMI 23.8
--- NOTE | 2023-07-14 00:46 | DI.RAD.S_ITS ---
PROCEDURE: XR CHEST 1V INDICATIONS: AMS TECHNIQUE: One view of the chest was acquired. COMPARISON: [facility], CR, XR CHEST 1V, 12/19/2022, 17:04. [facility], CR, XR CHEST 1V, 03/06/2020, 18:16. FINDINGS: Surgical changes and devices: None. Lungs and pleura: Lungs are clear. No pleural effusions or pneumothorax. Mediastinum: Mediastinal contours appear normal. Heart size is normal. Bones and chest wall: No suspicious bony lesions. Overlying soft tissues appear unremarkable. IMPRESSION: No acute cardiopulmonary abnormality is seen. Dictated by: Marc Coleman M.D. on 07/14/2023 at 1:33 Approved by: Marc Coleman M.D. on 07/14/2023 at 1:33
--- NOTE | 2023-07-14 01:04 | DI.CT.S_ITS ---
PROCEDURE: CT HEAD/BRAIN WO CON INDICATIONS: AMS, AGITATION TECHNIQUE: Noncontrast 4.5 mm thick angled axial sections acquired from the foramen magnum to the vertex, with coronal and sagittal reformats. For radiation dose reduction, the following was used: automated exposure control, adjustment of mA and/or kV according to patient size. COMPARISON: [facility], CT, CT HEAD/BRAIN WO CON, 06/22/2023, 2:10. [facility], CT, CT HEAD/BRAIN WO CON, 06/14/2023, 3:39. FINDINGS: Image quality: Diagnostic. CSF spaces: Basal cisterns are patent. No extra-axial fluid collections. The ventricles are symmetric in size and shape. Brain: No intracranial bleeds or masses. There is cerebral volume loss for age, with resultant ventricular and sulcal prominence. There are periventricular and deep white matter chronic small vessel ischemic changes. There is intracranial internal carotid artery atherosclerosis. Skull and face: Calvarium and visualized facial bones appear intact, without suspicious lesions. Sinuses: Visualized sinuses and mastoids are clear. IMPRESSION: No acute intracranial pathology. Dictated by: Marc Coleman M.D. on 07/14/2023 at 1:57 Approved by: Marc Coleman M.D. on 07/14/2023 at 1:58
--- NOTE | 2023-07-14 01:13 | ED.AMS ---
HPI - Altered Mental Status General Chief Complaint: Altered Mental Status Stated Complaint: manic Time Seen by Provider: 07/14/23 00:44 Source: EMS Mode of arrival: EMS History of Present Illness HPI narrative: 73-year-old male presents by EMS from home for agitation and altered mental status. History obtained from medics as patient is confused and agitated, uncertain why she was here, and screaming when she was moved. Medics state that patient has a history of gemini and was pacing, screaming, acting bizarrely at home. She has been telling that she did not want to come to the emergency department, but at some point her behavior became so erratic that he called [address] EMS states it has been is on the way to help provided additional history Related Data Home Medications Medication Instructions Recorded Confirmed amlodipine 10 mg tablet 10 mg PO BEDTIME 03/06/20 06/21/23 atorvastatin 20 mg tablet 20 mg PO BEDTIME 04/22/22 06/21/23 betamethasone dipropionate 0.05 % 0.05 applic topical BID eczema 04/22/22 06/21/23 topical cream oxycodone 5 mg tablet 5 mg PO TID PRN pain 04/22/22 06/21/23 Calcium 500 1 tab PO BEDTIME 06/13/23 06/21/23 lorazepam 1 mg tablet 0.5 mg PO 3XD 06/13/23 06/21/23 gabapentin 300 mg capsule 300 mg PO BID 06/21/23 06/21/23 Previous Rx's Medication Instructions Recorded metoclopramide HCl 10 mg tablet 10 mg PO Q6H PRN nausea and 08/27/21 (Reglan) vomiting #14 tabs ondansetron 4 mg disintegrating 4 mg PO Q8H PRN nausea and 05/08/22 tablet vomiting #14 tabs levothyroxine 75 mcg tablet 75 mcg PO DAILY@0600 #30 tabs 05/13/22 (Synthroid) quetiapine 300 mg tablet 300 mg PO BEDTIME #30 tabs 06/27/23 Allergies Allergy/AdvReac Type Severity Reaction Status Date / Time Sulfa (Sulfonamide Allergy Unknown Verified 06/13/23 18:05 Antibiotics) desipramine Allergy Rash Verified 06/13/23 18:05 Review of Systems Review of Systems Narrative: Unable to obtain due to current condition Patient History Medical History Eczema Hypothyroidism (acquired) Bipolar disorder Hypertension Surgical History Hx of cholecystectomy Family History Mother Alcohol abuse Father CVA (cerebral vascular accident) Social History household members: spouse Smoking Status: Never smoker alcohol intake: former Smoking Status: Never smoker alcohol intake frequency: 0-2 drinks per day Substance Use Type: does not use Exam Initial Vital Signs Initial Vital Signs: Vital Signs Temperature 97.9 F 07/14/23 00:40 Pulse Rate 105 H 07/14/23 00:40 Respiratory Rate 24 07/14/23 00:40 Blood Pressure 89/51 L 07/14/23 00:40 Pulse Oximetry 93 07/14/23 00:40 Oxygen Delivery Method Room Air 07/14/23 00:40 Const: Awake, alert, frail Cardiac: Tachycardia, regular rhythm RESP: unlabored, clear bilaterally, no wheezing GI: Atraumatic, soft, nontender, nondistended MSK: Atraumatic, full range of motion, pulses equal Skin: Warm, Dry, intact, no rashes Neuro: AO x1, CN II-XII grossly intact, moves all extremities, agitated when touched or maneuvered Procedures Central Line Placement Right IJ: Time Out Performed: Yes Patient Placed on Monitor/Pulse Ox: Yes MD Prep: mask, gown and gloves Central Line Prep: Chlorhexidine scrub Ultrasound Used for Placement: Yes Central Line Lumen Inserted: triple Post Procedure: sutured in place, good blood return, all ports aspirated, flushed, capped, sterile dressing applied and line stabilization device Post Procedure X-Ray: tip of catheter in good position and no pneumothorax seen Complications: none Intubation sedative: Ketamine Mg Given: 70 paralytic: Rocuronium Mg Given: 50 Laryngoscope: Endy ET Tube Size: 7.5 ET Tube Uncuffed: No Tube Secured Depth (cm): 25 Tube Secured Location: lips Tube Placement Confirmation: Visualized tube passing through cords, Equal breath sounds bilaterally, No breath sounds over epigastrium, Confirmation by capnometry and Chest Xray Patient Tolerated Procedure: Well and No complications Intubation Complications: none Course Orders Ordered: Chlorhexidine Gluconate (Chlorhexidine Gluconate 15 Ml Cup) 15 ml PO Q6HR [facility] Last Admin: 07/15/23 00:06 Dose: 15 ml Documented By: Admin: 07/14/23 18:04 Dose: 15 ml Documented By: Admin: 07/14/23 12:16 Dose: 15 ml Documented By: Admin: 07/14/23 05:45 Dose: 15 ml Documented By: MIRELLA Heparin Sodium (Porcine) (Heparin 5,000 Unit/Ml Vial) 5,000 unit SUBCUT BID [facility] Last Admin: 07/14/23 21:17 Dose: 5,000 unit Documented By: Admin: 07/14/23 08:33 Dose: 5,000 unit Documented By: MORENA Propofol (Propofol) 1,000 mg in 100 mls @ 2.055 mls/hr IV TITRATE [facility]; Protocol Last Admin: 07/14/23 22:15 Dose: 25 mcg/kg/min, 10.274 mls/hr Documented By: Titration: 07/14/23 22:15 Dose: Infused Documented By: Titration: 07/14/23 20:30 Dose: 25 mcg/kg/min, 10.274 mls/hr Documented By: Titration: 07/14/23 15:25 Dose: 25 mcg/kg/min, 10.274 mls/hr Documented By: Titration: 07/14/23 15:12 Dose: 20 mcg/kg/min, 8.219 mls/hr Documented By: Titration: 07/14/23 15:06 Dose: 15 mcg/kg/min, 6.164 mls/hr Documented By: Titration: 07/14/23 14:37 Dose: 10 mcg/kg/min, 4.11 mls/hr Documented By: Admin: 07/14/23 13:47 Dose: 15 mcg/kg/min, 6.164 mls/hr Documented By: Titration: 07/14/23 13:47 Dose: Infused Documented By: Titration: 07/14/23 12:31 Dose: 15 mcg/kg/min, 6.164 mls/hr Documented By: Titration: 07/14/23 08:05 Dose: 10 mcg/kg/min, 4.11 mls/hr Documented By: Titration: 07/14/23 07:03 Dose: 10 mcg/kg/min, 4.11 mls/hr Documented By: Titration: 07/14/23 06:30 Dose: 10 mcg/kg/min, 4.11 mls/hr Documented By: Titration: 07/14/23 06:13 Dose: 15 mcg/kg/min, 6.164 mls/hr Documented By: Titration: 07/14/23 05:48 Dose: 10 mcg/kg/min, 4.11 mls/hr Documented By: Admin: 07/14/23 05:29 Dose: 5 mcg/kg/min, 2.055 mls/hr Documented By: SB NOREPINEPHRINE BITARTRATE/D5W (Levophed) 4 mg in 250 mls @ 25.685 mls/hr IV TITRATE [facility]; Protocol Last Admin: 07/14/23 07:23 Dose: Not Given Documented By: SPF Cefepime HCl 2 gm/ Sodium (Chloride) 100 mls @ 200 mls/hr IV Q12H [facility] Last Infusion: 07/14/23 21:47 Dose: Infused Documented By: Admin: 07/14/23 21:17 Dose: 200 mls/hr Documented By: Infusion: 07/14/23 10:44 Dose: Infused Documented By: Admin: 07/14/23 10:14 Dose: 200 mls/hr Documented By: MORENA Vancomycin HCl (Vancomycin) 750 mg in 150 mls @ 150 mls/hr IV Q12H [facility] Last Infusion: 07/14/23 23:15 Dose: Infused Documented By: Admin: 07/14/23 22:15 Dose: 150 mls/hr Documented By: Fentanyl 1,000 mcg/ Dextrose 250 mls @ 12.093 mls/hr IV TITRATE [facility]; Protocol Last Admin: 07/14/23 23:49 Dose: 1.5 mcg/kg/hr, 25.913 mls/hr Documented By: Titration: 07/14/23 23:49 Dose: Infused Documented By: Titration: 07/14/23 20:15 Dose: 1.5 mcg/kg/hr, 25.913 mls/hr Documented By: Titration: 07/14/23 18:39 Dose: 1 mcg/kg/hr, 17.275 mls/hr Documented By: Titration: 07/14/23 15:42 Dose: 1.5 mcg/kg/hr, 25.913 mls/hr Documented By: Titration: 07/14/23 15:25 Dose: 0.9 mcg/kg/hr, 15.548 mls/hr Documented By: Titration: 07/14/23 15:12 Dose: 0.7 mcg/kg/hr, 12.093 mls/hr Documented By: Titration: 07/14/23 14:33 Dose: 0.5 mcg/kg/hr, 8.638 mls/hr Documented By: Admin: 07/14/23 13:46 Dose: 0.7 mcg/kg/hr, 12.093 mls/hr Documented By: MORENA Naloxone HCl (Naloxone 0.4 Mg/Ml Vial) 0.2 mg IV Q2MIN PRN PRN Reason: Opiate Reversal Pantoprazole Sodium (Pantoprazole 40 Mg Vial) 40 mg IV DAILY [facility] Last Admin: 07/14/23 08:33 Dose: 40 mg Documented By: MORENA Vancomycin HCl (Vancomycin Trough) 1 request MISC 2130 ONE Stop: 07/15/23 21:31 Vancomycin HCl (Vancomycin Peak) 1 request MISC 0000 ONE Stop: 07/16/23 00:01 Discontinued Medications Sodium Chloride (Normal Saline 0.9%) 1,000 mls @ 1,000 mls/hr IV BOLUS ONE Stop: 07/14/23 01:43 Last Infusion: 07/14/23 04:31 Dose: Infused Documented By: Admin: 07/14/23 01:28 Dose: 1,000 mls/hr Documented By: MIRELLA Ceftriaxone Sodium 2,000 mg/ (Sodium Chloride) 100 mls @ 200 mls/hr IV NOW ONE Stop: 07/14/23 03:06 Last Infusion: 07/14/23 04:00 Dose: Infused Documented By: Admin: 07/14/23 03:16 Dose: 200 mls/hr Documented By: MIRELLA Sodium Chloride (Normal Saline 0.9%) 1,000 mls @ 1,000 mls/hr IV BOLUS ONE Stop: 07/14/23 04:05 Last Infusion: 07/14/23 04:45 Dose: Infused Documented By: Admin: 07/14/23 03:16 Dose: 1,000 mls/hr Documented By: MIRELLA Sodium Chloride (Normal Saline 0.9%) 1,000 mls @ 500 mls/hr IV BOLUS ONE Stop: 07/14/23 07:24 Last Admin: 07/14/23 07:30 Dose: Not Given Documented By: SPF POTASSIUM CHLORIDE IN WATER (Potassium Cl 10 Meq/100 Ml Karissa) 10 meq in 100 mls @ 100 mls/hr IV Q1H [facility] Stop: 07/14/23 11:29 Last Admin: 07/14/23 09:02 Dose: Not Given Documented By: Admin: 07/14/23 08:34 Dose: 100 mls/hr Documented By: MORENA POTASSIUM CHLORIDE IN WATER (Potassium Cl 10 Meq/100 Ml Karissa) 10 meq in 100 mls @ 100 mls/hr IV Q1H [facility] Stop: 07/14/23 12:14 Last Admin: 07/14/23 12:16 Dose: 100 mls/hr Documented By: Infusion: 07/14/23 11:59 Dose: Infused Documented By: Admin: 07/14/23 10:59 Dose: 100 mls/hr Documented By: Infusion: 07/14/23 10:59 Dose: Infused Documented By: Admin: 07/14/23 10:14 Dose: 100 mls/hr Documented By: MORENA Vancomycin HCl/Dextrose (Vancomycin) 1,500 mg in 300 mls @ 200 mls/hr IV 1000 ONE Stop: 07/14/23 11:29 Last Admin: 07/14/23 11:00 Dose: 200 mls/hr Documented By: MORENA Ketamine HCl (Ketamine 500 Mg/5 Ml Inj) 100 mg IV NOW ONE Stop: 07/14/23 03:40 Last Admin: 07/14/23 03:59 Dose: 100 mg Documented By: MIRELLA Propofol (Propofol 200 Mg/20 Ml Vial) 50 mg IV NOW ONE Stop: 07/14/23 07:48 Last Admin: 07/14/23 07:52 Dose: 50 mg Documented By: KACY Rocuronium [place] (Rocuronium 50 Mg/5 Ml Inj) 50 mg IV NOW ONE Stop: 07/14/23 03:40 Last Admin: 07/14/23 03:59 Dose: 50 mg Documented By: MIRELLA Vital Signs Vital signs: Vital Signs - 8 hr 07/14/23 00:40 07/14/23 00:46 07/14/23 00:46 Temperature 97.9 F Pulse Rate 105 H 101 H Respiratory Rate 24 25 H Blood Pressure 89/51 L 85/48 L Pulse Oximetry 93 97 Oxygen Delivery Method Room Air Fraction of Inspired Oxygen 07/14/23 01:00 07/14/23 01:06 07/14/23 01:06 Temperature Pulse Rate 92 H 81 Respiratory Rate 26 H 15 Blood Pressure 78/41 L Pulse Oximetry 97 95 Oxygen Delivery Method Room Air Fraction of Inspired Oxygen 07/14/23 01:15 07/14/23 01:15 07/14/23 01:47 Temperature Pulse Rate 77 70 Respiratory Rate 15 Blood Pressure 90/45 L Pulse Oximetry 96 99 Oxygen Delivery Method Room Air Room Air Fraction of Inspired Oxygen 07/14/23 01:50 07/14/23 01:50 07/14/23 03:00 Temperature Pulse Rate 70 73 Respiratory Rate Blood Pressure 102/51 L Pulse Oximetry 99 94 Oxygen Delivery Method Fraction of Inspired Oxygen 07/14/23 03:15 07/14/23 03:15 07/14/23 03:30 Temperature Pulse Rate 67 72 Respiratory Rate Blood Pressure 97/53 L Pulse Oximetry 95 99 Oxygen Delivery Method Fraction of Inspired Oxygen 07/14/23 03:30 07/14/23 03:46 07/14/23 03:46 Temperature Pulse Rate 76 Respiratory Rate 15 Blood Pressure 103/55 L 105/54 L Pulse Oximetry 98 Oxygen Delivery Method Fraction of Inspired Oxygen 07/14/23 04:00 07/14/23 04:00 07/14/23 04:05 Temperature Pulse Rate 75 Respiratory Rate 14 Blood Pressure 99/52 L 130/66 Pulse Oximetry 99 Oxygen Delivery Method Fraction of Inspired Oxygen 07/14/23 04:05 07/14/23 04:27 07/14/23 04:30 Temperature Pulse Rate 93 H Respiratory Rate 11 L Blood Pressure 132/64 Pulse Oximetry 100 Oxygen Delivery Method Fraction of Inspired Oxygen 30 07/14/23 04:30 Temperature 94.6 F L Pulse Rate 78 Respiratory Rate 18 Blood Pressure Pulse Oximetry 100 Oxygen Delivery Method Mechanical Ventilation Fraction of Inspired Oxygen MDM - Altered Mental Status Differential Diagnosis Differential diagnosis: Likely alcoholic intoxication, altered mental status and delirium Lab Data 07/14/23 08:22 07/14/23 08:22 Labs: Lab Results 07/14/23 07/14/23 07/14/23 Range/Units 01:24 03:33 03:42 WBC 14.8 H (4.5-11.0) X10^3/uL RBC 3.80 L (4.0-5.2) X10^6/uL Hgb 11.4 L (12.0-16.0) g/dL Hct 34.0 L (36-46) % MCV 89.4 (80-100) fL MCH 29.9 (26-34) PG MCHC 33.4 (30-36) % RDW 14.6 (11.6-14.8) % Plt Count 414 H (150-400) X10^3/uL Neut % (Auto) 86.2 H (50-75) % Lymph % (Auto) 7.7 L (25-40) % [place] % (Auto) 3.1 (3-14) % Eos % (Auto) 2.1 (2-4) % Baso % (Auto) 0.9 (0-2) % Neut # (Auto) 96171 H (5964-6919) /uL Lymph # (Auto) 1100 (8356-0136) /uL [place] # (Auto) 500 (0-900) /uL Eos # (Auto) 300 (0-450) /uL Baso # (Auto) 100 (0-100) /uL PT 11.5 (9.4-12.5) SECONDS INR 1.0 (0.9-1.3) Sample Site N ABG Sample Site Right radial ABG pH 7.31 L (7.35-7.45) ABG pCO2 29.2 L (35-45) mmHg ABG pO2 72 L (80-100) mmHg ABG HCO3 15 L (23-27) mmol/L ABG Total CO2 15 L (23-27) mmol/L ABG O2 Saturation 93 L (95-100) % ABG Base Excess -12.0 L (-2-3) mmol/L FiO2 21 Sodium 142 (137-145) mmol/L Potassium 3.2 L (3.4-5.1) mmol/L Chloride 111 H (98-107) mmol/L Carbon Dioxide 18 L (22-32) mmol/L BUN 25 H (7-17) mg/dL Creatinine 1.41 H (0.52-1.04) mg/dL Estimated GFR 39 L (>60) mL/min BUN/Creatinine Ratio 17.7 (6-22) Glucose 167 H (80-110) mg/dL Lactate 3.4 H (0.7-2.1) mmol/L Calcium 9.9 (8.4-10.2) mg/dL Magnesium 1.9 (1.6-2.3) mg/dL Total Bilirubin 0.6 (0.2-1.3) mg/dL AST 26 (14-36) IU/L ALT 19 (<35) IU/L Alkaline Phosphatase 139 H (38-126) U/L Total Creatine Kinase 44 (30-135) U/L Troponin I < 0.012 (0.01-0.034) ng/mL Total Protein 8.3 H (6.3-8.2) g/dL Albumin 4.5 (3.5-5.0) g/dL Globulin 3.8 (1.7-4.1) g/dL Albumin/Globulin Ratio 1.2 (1.0-2.8) Procalcitonin 0.05 (<0.5) ng/mL Urine Color Yellow Urine Appearance Clear Urine pH 5.5 (4.5-8.0) Ur Specific [place] 1.010 (1.000-1.035) Urine Protein Negative (Negative) Urine Glucose (UA) Negative (Negative) g/dL Urine Ketones Negative (NEGATIVE) Urine Occult Blood Negative (Negative) Urine Nitrate Negative (Negative) Urine Bilirubin Negative (NEGATIVE) Urine Urobilinogen 0.2 (0.2) E.U./dL Ur Leukocyte Esterase Negative (NEGATIVE) Urine RBC None seen (0-5/HPF) Urine WBC None seen (0-5/HPF) Ur Squamous Epith Cells 0-1 /hpf (0-5/HPF) Urine Bacteria None seen (None) Ur Culture Indicated? Cult not indicated Vol Urine Centrifuged 10ml (spun) 07/14/23 07/14/23 Range/Units 04:44 04:55 WBC (4.5-11.0) X10^3/uL RBC (4.0-5.2) X10^6/uL Hgb (12.0-16.0) g/dL Hct (36-46) % MCV (80-100) fL MCH (26-34) PG MCHC (30-36) % RDW (11.6-14.8) % Plt Count (150-400) X10^3/uL Neut % (Auto) (50-75) % Lymph % (Auto) (25-40) % [place] % (Auto) (3-14) % Eos % (Auto) (2-4) % Baso % (Auto) (0-2) % Neut # (Auto) (2620-0968) /uL Lymph # (Auto) (8074-3721) /uL [place] # (Auto) (0-900) /uL Eos # (Auto) (0-450) /uL Baso # (Auto) (0-100) /uL PT (9.4-12.5) SECONDS INR (0.9-1.3) Sample Site N ABG Sample Site Right radial ABG pH 7.43 (7.35-7.45) ABG pCO2 26.2 L (35-45) mmHg ABG pO2 103 H (80-100) mmHg ABG HCO3 17 L (23-27) mmol/L ABG Total CO2 18 L (23-27) mmol/L ABG O2 Saturation 98 (95-100) % ABG Base Excess -7.0 L (-2-3) mmol/L FiO2 30 Sodium (137-145) mmol/L Potassium (3.4-5.1) mmol/L Chloride (98-107) mmol/L Carbon Dioxide (22-32) mmol/L BUN (7-17) mg/dL Creatinine (0.52-1.04) mg/dL Estimated GFR (>60) mL/min BUN/Creatinine Ratio (6-22) Glucose (80-110) mg/dL Lactate 0.9 (0.7-2.1) mmol/L Calcium (8.4-10.2) mg/dL Magnesium (1.6-2.3) mg/dL Total Bilirubin (0.2-1.3) mg/dL AST (14-36) IU/L ALT (<35) IU/L Alkaline Phosphatase (38-126) U/L Total Creatine Kinase (30-135) U/L Troponin I (0.01-0.034) ng/mL Total Protein (6.3-8.2) g/dL Albumin (3.5-5.0) g/dL Globulin (1.7-4.1) g/dL Albumin/Globulin Ratio (1.0-2.8) Procalcitonin (<0.5) ng/mL Urine Color Urine Appearance Urine pH (4.5-8.0) Ur Specific [place] (1.000-1.035) Urine Protein (Negative) Urine Glucose (UA) (Negative) g/dL Urine Ketones (NEGATIVE) Urine Occult Blood (Negative) Urine Nitrate (Negative) Urine Bilirubin (NEGATIVE) Urine Urobilinogen (0.2) E.U./dL Ur Leukocyte Esterase (NEGATIVE) Urine RBC (0-5/HPF) Urine WBC (0-5/HPF) Ur Squamous Epith Cells (0-5/HPF) Urine Bacteria (None) Ur Culture Indicated? Vol Urine Centrifuged Imaging Data Chest x-ray: Radiologist's Impression: PROCEDURE: XR CHEST 1V INDICATIONS: AMS TECHNIQUE: One view of the chest was acquired. COMPARISON: [facility], CR, XR CHEST 1V, 12/19/2022, 17:04. [facility], CR, XR CHEST 1V, 03/06/2020, 18:16. FINDINGS: Surgical changes and devices: None. Lungs and pleura: Lungs are clear. No pleural effusions or pneumothorax. Mediastinum: Mediastinal contours appear normal. Heart size is normal. Bones and chest wall: No suspicious bony lesions. Overlying soft tissues appear unremarkable. IMPRESSION: No acute cardiopulmonary abnormality is seen. Dictated by: Marc Coleman M.D. on 07/14/2023 at 1:33 Approved by: Marc Coleman M.D. on 07/14/2023 at 1:33 CT scan - head: Radiologist's Impression: PROCEDURE: CT HEAD/BRAIN WO CON INDICATIONS: AMS, AGITATION TECHNIQUE: Noncontrast 4.5 mm thick angled axial sections acquired from the foramen magnum to the vertex, with coronal and sagittal reformats. For radiation dose reduction, the following was used: automated exposure control, adjustment of mA and/or kV according to patient size. COMPARISON: [facility], CT, CT HEAD/BRAIN WO CON, 06/22/2023, 2:10. [facility], CT, CT HEAD/BRAIN WO CON, 06/14/2023, 3:39. FINDINGS: Image quality: Diagnostic. CSF spaces: Basal cisterns are patent. No extra-axial fluid collections. The ventricles are symmetric in size and shape. Brain: No intracranial bleeds or masses. There is cerebral volume loss for age, with resultant ventricular and sulcal prominence. There are periventricular and deep white matter chronic small vessel ischemic changes. There is intracranial internal carotid artery atherosclerosis. Skull and face: Calvarium and visualized facial bones appear intact, without suspicious lesions. Sinuses: Visualized sinuses and mastoids are clear. IMPRESSION: No acute intracranial pathology. Dictated by: Marc Coleman M.D. on 07/14/2023 at 1:57 Approved by: Marc Coleman M.D. on 07/14/2023 at 1:58 Extremity x-ray #1: Radiologist's Impression: PROCEDURE: XR TOE RT MIN 2V INDICATIONS: SURGERY 1 MO AGO, WOUND ON GREAT TOE TECHNIQUE: A total of 2 views of the 1st toe(s) acquired. COMPARISON: [facility], CR, XR FOOT 3 VIEWS WEIGHT BEARING RIGHT, 06/05/2023, 13:53. [facility], CR, XR FOOT RT 2V, 06/21/2023, 20:57. FINDINGS: Bones: Medial 1st metatarsal head bunionectomy has been performed subsequent to a 06/05/23 comparison study. A follow-up set of images 06/21/23 has shown a very similar appearance to the current study with abnormal alignment at the 1st metatarsal-phalangeal articulation where fracture dislocation was previously identified and currently persists.. Soft tissues: No suspicious soft tissue densities. IMPRESSION: Persistent appearance of fracture dislocation at the base of the 1st proximal phalanx, in this patient who underwent medial 1st metatarsal head bunionectomy in May of this year. Little if any change in appearance from 06/21/23. Dictated by: Marc Coleman M.D. on 07/14/2023 at 1:52 Approved by: Marc Coleman M.D. on 07/14/2023 at 1:57 MDM Narrative Medical decision making narrative: Patient brought in for agitation and altered mental status. Seen here 1 month ago for same. Presentation appears similar to previous, diagnosed with acute metabolic encephalopathy and acute kidney injury. At that time it was presumed that it was because patient has been taken off of her Seroquel, however arrived shortly after EMS departed and stated that there have been no recent medication changes. states that he went to work earlier this morning and patient was in her usual mental state. Several hours later she called him telling him to come home because she was spilled Coca-Cola on the floor. He states that when he went home there were a few drops of spilled soda, but patient was acting erratically and not quite like herself. Later this afternoon the patient complained of foot pain and ran to her medicine cabinet. Has been took the medications from the patient because of how she was acting, but states that she may have taken some baclofen. He was uncertain how many baclofen she could have taken or if she even was able to swallow the pills. Patient was altered, agitated, confused. Nursing informed me that patient is more somnolent and they are having difficulty arousing her. Patient reassessed, she is breathing evenly, snoring. She was able to arouse with sternal rub but falls quickly back to sleep. ABG ordered for assessment Patient is now poorly responsive even to deep sternal rub and painful stimuli. ABG is still pending but plan to intubate patient for airway protection. at bedside in agreement. Patient intubated, not requiring any sedation currently, however propofol and Levophed ordered proactively. Chest x-ray confirms placement of lines and tubes. Patient admitted to ICU in stable condition. Critical Care Time Critical Care Time Critical Care Time: Yes Total Critical Care Time: 52 Attestation: Altered mental status and agitation ultimately requiring intubation and stabilization. Discharge Plan Departure Patient Disposition: Admitted As Inpatient Clinical Impression: Acute metabolic encephalopathy Admit Date/Time: 07/14/23 04:56 Admit Provider: Edvin Cody
--- NOTE | 2023-07-14 01:15 | PC.NURSE ---
Pt was able to ambulate to bedside commode with assistance of two staff members, was repeating her questions and asking staff where her was. Pt answering staff questions but would immediately ask where her was. Pt unable to state the current year, her birthday, what happened prior to coming to the ER, but was able to tell staff she was in the hospital. at bedside at this time.
[2023-07-14] MEDS: SODIUM CHLORIDE 0.9% 1,000 ML 1000 ML IV ×2 (01:28→03:16)
--- NOTE | 2023-07-14 01:30 | PC.NURSE ---
Pt has small 1/4 inch in diameter wound to top of head that has scab. When asked, pt states she picks at her scalp. MD aware, no active bleedn
[2023-07-14 01:40] LABS: Add Manual Diff / Slide Review NO; Basophils Absolute Auto 100 /uL (0-100); Basophils Percent Auto 0.9 % (0-2); Eosinophils Absolute Auto 300 /uL (0-450); Eosinophils Percent Auto 2.1 % (2-4); Hemoglobin 11.4 g/dL (12.0-16.0); Lymphocytes Absolute Auto 1100 /uL (1100-4500); Lymphocytes Percent Auto 7.7 % (25-40); Mean Corpuscular HGB Conc 33.4 % (30-36); Mean Corpuscular Hemoglobin 29.9 PG (26-34); Mean Corpuscular Volume 89.4 fL (80-100); Monocytes Absolute Auto 500 /uL (0-900); Monocytes Percent Auto 3.1 % (3-14); Neutrophils Absolute Auto 12700 /uL (1500-7000); Neutrophils Percent Auto 86.2 % (50-75); Platelet Count 414 X10^3/uL (150-400); Red Cell Distribution Width 14.6 % (11.6-14.8); White Blood Cell Count 14.8 X10^3/uL (4.5-11.0)
[2023-07-14 01:47] LABS: Alanine Aminotransferase 19 IU/L (<35); Albumin 4.5 g/dL (3.5-5.0); Albumin Globulin Ratio 1.2 (1.0-2.8); Alkaline Phosphatase 139 U/L (38-126); Aspartate Aminotransferase 26 IU/L (14-36); BUN Creatinine Ratio 17.7 (6-22); Bilirubin Total 0.6 mg/dL (0.2-1.3); Blood Urea Nitrogen 25 mg/dL (7-17); Calcium 9.9 mg/dL (8.4-10.2); Carbon Dioxide 18 mmol/L (22-32); Chloride 111 mmol/L (98-107); Creatine Kinase 44 U/L (30-135); Estimated Glomerular Filt Rate 39 mL/min (>60); Globulin 3.8 g/dL (1.7-4.1); Glucose 167 mg/dL (80-110); HEMOLYSIS 16 (0-50); Lactate (Lactic Acid) 3.4 mmol/L (0.7-2.1); Magnesium 1.9 mg/dL (1.6-2.3); Potassium 3.2 mmol/L (3.4-5.1); Sodium 142 mmol/L (137-145); Total Protein 8.3 g/dL (6.3-8.2)
--- NOTE | 2023-07-14 01:51 | PC.NURSE ---
Pt is snoring in room. Airway intact, equal rise and fall of chest. says pt has not taken anything extra for sleep only her regular meds.
[2023-07-14 01:59] LABS: Prothrombin Time 11.5 SECONDS (9.4-12.5); Troponin I < 0.012 ng/mL (0.01-0.034)
[2023-07-14 03:04] LABS: Procalcitonin 0.05 ng/mL (<0.5)
[2023-07-14 03:05] LABS: Reflexed Lactate in 2 Hours Y
--- NOTE | 2023-07-14 03:15 | PC.NURSE ---
Pt is more lethargic and not responding to sternal rubs. MD Velazquez at bedside.
[2023-07-14] MEDS: cefTRIAXone 2,000 MG in SODIUM CHLORIDE 0.9% 100 ML 200 MG IV (03:16)
[2023-07-14 03:50] LABS: Appearance Urine UA CLEAR; Bilirubin Urine UA NEGATIVE (NEGATIVE); Color Urine UA YELLOW; Glucose Urine UA NEGATIVE (Negative); Ketones Urine UA NEGATIVE (NEGATIVE); Leukocyte Esterase Urine UA NEGATIVE (NEGATIVE); Nitrite Urine UA NEGATIVE (Negative); Occult Blood Urine UA NEGATIVE (Negative); Protein Urine UA NEGATIVE (Negative); Urobilinogen Urine UA 0.2 E.U./dL (0.2)
[2023-07-14 03:52] LABS: pH Urine UA 5.5 (4.5-8.0)
[2023-07-14 03:56] LABS: Bacteria Urine None Seen; Culture Indicated Urine Cult Not Indicated; RBC Urine None Seen (0-5/HPF); Squamous Epithelial Cell Urine 0-1 /HPF (0-5/HPF); Urine Volume 10mL (spun); WBC Urine None Seen (0-5/HPF)
[2023-07-14] MEDS: ROCURONIUM 50 MG/5 ML INJ IV (03:59)
[2023-07-14] MEDS: KETAMINE 500 MG/5 ML INJ 100 MG IV (03:59)
[2023-07-14 04:20] LABS: Allen Test for ABG Passed? Yes, Passed; Blood Gas Collection Site Right Radial; Fractionated Inspired Oxygen 21; HCO3 ABG 15 mmol/L (23-27); Oxygen Saturation ABG 93 % (95-100); PCO2 ABG 29.2 mmHg (35-45); PO2 ABG 72 mmHg (80-100); TCO2 ABG 15 mmol/L (23-27); pH ABG 7.31 (7.35-7.45)
[2023-07-14 04:21] LABS: Blood Gas Other Coll. Site N
--- NOTE | 2023-07-14 04:56 | PC.NURSE ---
Pt not withdrawing from pain at this time. Resting in bed, intubated. is aware. VSS, no sings of distress at this time. Chapstick applied to pt lips as they are dry. Bear hugger applied to pt as core body temp is still 95.2, aware and gave verbal okay.
[2023-07-14 05:04] LABS: Allen Test for ABG Passed? Yes, Passed; Blood Gas Collection Site Right Radial; Blood Gas Other Coll. Site N; Fractionated Inspired Oxygen 30; HCO3 ABG 17 mmol/L (23-27); Oxygen Saturation ABG 98 % (95-100); PCO2 ABG 26.2 mmHg (35-45); PO2 ABG 103 mmHg (80-100); TCO2 ABG 18 mmol/L (23-27); pH ABG 7.43 (7.35-7.45)
--- NOTE | 2023-07-14 05:09 | DI.RAD.S_ITS ---
PROCEDURE: XR CHEST 1V INDICATIONS: Intubated. TECHNIQUE: One view of the chest was acquired. COMPARISON: [facility], CR, XR CHEST 1V, 07/14/2023, 0:47. [facility], CR, XR CHEST 1V, 12/19/2022, 17:04. FINDINGS: Surgical changes and devices: Endotracheal tube in the lower trachea. Enteric tube coursing towards the stomach. The tip is not well seen but appears to be near the gastroesophageal junction. Right IJ central venous line with the catheter tip in the proximal right atrium. Cholecystectomy clips. Lungs and pleura: Ill-defined opacity left retrocardiac. Somewhat prominent perihilar markings which could represent pulmonary vasculature engorgement. No pleural effusions or pneumothorax. Mediastinum: Mediastinal contours appear unchanged. Heart size is normal. Bones and chest wall: No suspicious bony lesions. Overlying soft tissues appear unremarkable. IMPRESSION: 1. Endotracheal tube in the lower trachea. This can be slightly pulled back approximately 2 cm for more optimal positioning. 2. Enteric tube coursing towards the stomach. The tip is not well seen and may be at the gastroesophageal junction. This could be advanced several centimeters. 3. Right IJ central venous line with the catheter tip at the proximal right atrium. 4. Left retrocardiac ill-defined opacity. This could represent pneumonia. No significant discrepancy with the overnight preliminary interpretation. Dictated by: Shamar Ledezma M.D. on 07/14/2023 at 9:51 Approved by: Shamar Ledezma M.D. on 07/14/2023 at 10:00
[2023-07-14 05:14] LABS: Lactate 2HR (Lactic Acid Rflx) 0.9 mmol/L (0.7-2.1)
[2023-07-14] MEDS: propofoL 1,000 MG/100 ML VIAL 2.055 MG IV (05:29)
--- NOTE | 2023-07-14 05:41 | P.HP_ITS ---
History of Present Illness History of Present Illness Date Patient Seen: 07/14/23 Time Patient Seen: 06:30 Date of Onset of Symptoms: 07/13/23 Chief complaint: manic Narrative: 73 y/o with PMH of Bipolar Disorder presented confused, agitated, disoriented and quickly intubated for airway protection. Initial workup shows PFSH Medical History Eczema Hypothyroidism (acquired) Bipolar disorder Hypertension Surgical History Hx of cholecystectomy Family History Mother Alcohol abuse Father CVA (cerebral vascular accident) Social History household members: spouse Smoking Status: Never smoker alcohol intake: former Meds Home Medications and Allergies Home Medications Medication Instructions Recorded Confirmed Type amlodipine 10 mg tablet 10 mg PO BEDTIME 03/06/20 06/21/23 History metoclopramide HCl 10 mg tablet 10 mg PO Q6H PRN nausea and 08/27/21 06/21/23 Rx (Reglan) vomiting #14 tabs atorvastatin 20 mg tablet 20 mg PO BEDTIME 04/22/22 06/21/23 History betamethasone dipropionate 0.05 % 0.05 applic topical BID eczema 04/22/22 06/21/23 History topical cream oxycodone 5 mg tablet 5 mg PO TID PRN pain 04/22/22 06/21/23 History ondansetron 4 mg disintegrating 4 mg PO Q8H PRN nausea and 05/08/22 06/21/23 Rx tablet vomiting #14 tabs levothyroxine 75 mcg tablet 75 mcg PO DAILY@0600 #30 tabs 05/13/22 06/21/23 Rx (Synthroid) Calcium 500 1 tab PO BEDTIME 06/13/23 06/21/23 History lorazepam 1 mg tablet 0.5 mg PO 3XD 06/13/23 06/21/23 History gabapentin 300 mg capsule 300 mg PO BID 06/21/23 06/21/23 History quetiapine 300 mg tablet 300 mg PO BEDTIME #30 tabs 06/27/23 Rx Allergies Allergy/AdvReac Type Severity Reaction Status Date / Time Sulfa (Sulfonamide Allergy Unknown Verified 06/13/23 18:05 Antibiotics) desipramine Allergy Rash Verified 06/13/23 18:05 Exam Vital Signs (past 8 hours): - 07/14/23 00:40 07/14/23 00:46 07/14/23 00:46 Temperature 97.9 F Pulse Rate 105 H 101 H Respiratory Rate 24 25 H Blood Pressure 89/51 L 85/48 L Pulse Oximetry 93 97 Oxygen Delivery Method Room Air Fraction of Inspired Oxygen 07/14/23 01:00 07/14/23 01:06 07/14/23 01:06 Temperature Pulse Rate 92 H 81 Respiratory Rate 26 H 15 Blood Pressure 78/41 L Pulse Oximetry 97 95 Oxygen Delivery Method Room Air Fraction of Inspired Oxygen 07/14/23 01:15 07/14/23 01:15 07/14/23 01:47 Temperature Pulse Rate 77 70 Respiratory Rate 15 Blood Pressure 90/45 L Pulse Oximetry 96 99 Oxygen Delivery Method Room Air Room Air Fraction of Inspired Oxygen 07/14/23 01:50 07/14/23 01:50 07/14/23 03:00 Temperature Pulse Rate 70 73 Respiratory Rate Blood Pressure 102/51 L Pulse Oximetry 99 94 Oxygen Delivery Method Fraction of Inspired Oxygen 07/14/23 03:15 07/14/23 03:15 07/14/23 03:30 Temperature Pulse Rate 67 72 Respiratory Rate Blood Pressure 97/53 L Pulse Oximetry 95 99 Oxygen Delivery Method Fraction of Inspired Oxygen 07/14/23 03:30 07/14/23 03:46 07/14/23 03:46 Temperature Pulse Rate 76 Respiratory Rate 15 Blood Pressure 103/55 L 105/54 L Pulse Oximetry 98 Oxygen Delivery Method Fraction of Inspired Oxygen 07/14/23 04:00 07/14/23 04:00 07/14/23 04:05 Temperature Pulse Rate 75 Respiratory Rate 14 Blood Pressure 99/52 L 130/66 Pulse Oximetry 99 Oxygen Delivery Method Fraction of Inspired Oxygen 07/14/23 04:05 07/14/23 04:27 07/14/23 04:30 Temperature Pulse Rate 93 H Respiratory Rate 11 L Blood Pressure 132/64 Pulse Oximetry 100 Oxygen Delivery Method Fraction of Inspired Oxygen 30 07/14/23 04:30 07/14/23 04:57 07/14/23 04:57 Temperature 94.6 F L 95.2 F L Pulse Rate 78 70 Respiratory Rate 18 16 Blood Pressure 119/58 L Pulse Oximetry 100 100 Oxygen Delivery Method Mechanical Ventilation Fraction of Inspired Oxygen 07/14/23 05:00 07/14/23 05:00 07/14/23 05:30 Temperature 95.2 F L 95.5 F L Pulse Rate 70 88 Respiratory Rate 16 17 Blood Pressure 117/63 Pulse Oximetry 100 99 Oxygen Delivery Method Mechanical Ventilation Fraction of Inspired Oxygen 07/14/23 05:30 07/14/23 05:33 Temperature Pulse Rate 135 H Respiratory Rate 19 Blood Pressure 135/71 Pulse Oximetry Oxygen Delivery Method Fraction of Inspired Oxygen Fraction of Inspired Oxygen 30 Oxygen Delivery Method Mechanical Ventilation Objective Labs 07/14/23 01:24 07/14/23 01:24 Labs: Laboratory Results - last 24 hr 07/14/23 07/14/23 07/14/23 01:24 03:33 03:42 WBC 14.8 H RBC 3.80 L Hgb 11.4 L Hct 34.0 L MCV 89.4 MCH 29.9 MCHC 33.4 RDW 14.6 Plt Count 414 H Neut % (Auto) 86.2 H Lymph % (Auto) 7.7 L [place] % (Auto) 3.1 Eos % (Auto) 2.1 Baso % (Auto) 0.9 Neut # (Auto) 50508 H Lymph # (Auto) 1100 [place] # (Auto) 500 Eos # (Auto) 300 Baso # (Auto) 100 PT 11.5 INR 1.0 Sample Site N ABG Sample Site Right radial ABG pH 7.31 L ABG pCO2 29.2 L ABG pO2 72 L ABG HCO3 15 L ABG Total CO2 15 L ABG O2 Saturation 93 L ABG Base Excess -12.0 L FiO2 21 Sodium 142 Potassium 3.2 L Chloride 111 H Carbon Dioxide 18 L BUN 25 H Creatinine 1.41 H Estimated GFR 39 L BUN/Creatinine Ratio 17.7 Glucose 167 H Lactate 3.4 H Calcium 9.9 Magnesium 1.9 Total Bilirubin 0.6 AST 26 ALT 19 Alkaline Phosphatase 139 H Total Creatine Kinase 44 Troponin I < 0.012 Total Protein 8.3 H Albumin 4.5 Globulin 3.8 Albumin/Globulin Ratio 1.2 Procalcitonin 0.05 Urine Color Yellow Urine Appearance Clear Urine pH 5.5 Ur Specific [place] 1.010 Urine Protein Negative Urine Glucose (UA) Negative Urine Ketones Negative Urine Occult Blood Negative Urine Nitrate Negative Urine Bilirubin Negative Urine Urobilinogen 0.2 Ur Leukocyte Esterase Negative Urine RBC None seen Urine WBC None seen Ur Squamous Epith Cells 0-1 /hpf Urine Bacteria None seen Ur Culture Indicated? Cult not indicated Vol Urine Centrifuged 10ml (spun) 07/14/23 07/14/23 04:44 04:55 WBC RBC Hgb Hct MCV MCH MCHC RDW Plt Count Neut % (Auto) Lymph % (Auto) [place] % (Auto) Eos % (Auto) Baso % (Auto) Neut # (Auto) Lymph # (Auto) [place] # (Auto) Eos # (Auto) Baso # (Auto) PT INR Sample Site N ABG Sample Site Right radial ABG pH 7.43 ABG pCO2 26.2 L ABG pO2 103 H ABG HCO3 17 L ABG Total CO2 18 L ABG O2 Saturation 98 ABG Base Excess -7.0 L FiO2 30 Sodium Potassium Chloride Carbon Dioxide BUN Creatinine Estimated GFR BUN/Creatinine Ratio Glucose Lactate 0.9 Calcium Magnesium Total Bilirubin AST ALT Alkaline Phosphatase Total Creatine Kinase Troponin I Total Protein Albumin Globulin Albumin/Globulin Ratio Procalcitonin Urine Color Urine Appearance Urine pH Ur Specific [place] Urine Protein Urine Glucose (UA) Urine Ketones Urine Occult Blood Urine Nitrate Urine Bilirubin Urine Urobilinogen Ur Leukocyte Esterase Urine RBC Urine WBC Ur Squamous Epith Cells Urine Bacteria Ur Culture Indicated? Vol Urine Centrifuged
[2023-07-14] MEDS: CHLORHEXIDINE GLUCONATE 15 ML CUP PO ×3 (05:45→18:04)
--- NOTE | 2023-07-14 06:36 | PM.HP.1 ---
History of Present Illness History of Present Illness Chief complaint: manic Narrative: 73 y/o with PMH of Bipolar Disorder presented confused, agitated, disoriented and quickly intubated for airway protection. Initial workup shows leukocytosis, left shift, elevated [place], VELASQUEZ and no obvious source of infection, with clear CXR and UA. Covered with empiric Rocephin, given IVFs, BCs pending. Similar presentation few weeks ago. She was suspected on non-compliance with medications, apparently she was off Seroquel. Seen by psychiatry and discharged on previous regimen of prn Ativan and scheduled hs Seroquel. Supposed to follow with primary psychiatrist but I don't know if that ever happened. [facility] Medical History Eczema Hypothyroidism (acquired) Bipolar disorder Hypertension Surgical History Hx of cholecystectomy Family History Mother Alcohol abuse Father CVA (cerebral vascular accident) Social History household members: spouse Smoking Status: Never smoker alcohol intake: former Meds Home Medications and Allergies Home Medications Medication Instructions Recorded Confirmed Type amlodipine 10 mg tablet 10 mg PO BEDTIME 03/06/20 06/21/23 History metoclopramide HCl 10 mg tablet 10 mg PO Q6H PRN nausea and 08/27/21 06/21/23 Rx (Reglan) vomiting #14 tabs atorvastatin 20 mg tablet 20 mg PO BEDTIME 04/22/22 06/21/23 History betamethasone dipropionate 0.05 % 0.05 applic topical BID eczema 04/22/22 06/21/23 History topical cream oxycodone 5 mg tablet 5 mg PO TID PRN pain 04/22/22 06/21/23 History ondansetron 4 mg disintegrating 4 mg PO Q8H PRN nausea and 05/08/22 06/21/23 Rx tablet vomiting #14 tabs levothyroxine 75 mcg tablet 75 mcg PO DAILY@0600 #30 tabs 05/13/22 06/21/23 Rx (Synthroid) Calcium 500 1 tab PO BEDTIME 06/13/23 06/21/23 History lorazepam 1 mg tablet 0.5 mg PO 3XD 06/13/23 06/21/23 History gabapentin 300 mg capsule 300 mg PO BID 06/21/23 06/21/23 History quetiapine 300 mg tablet 300 mg PO BEDTIME #30 tabs 06/27/23 Rx Allergies Allergy/AdvReac Type Severity Reaction Status Date / Time Sulfa (Sulfonamide Allergy Unknown Verified 06/13/23 18:05 Antibiotics) desipramine Allergy Rash Verified 06/13/23 18:05 Review of Systems Review of Systems Narrative: Unobtainable - intubated on a ventilator Exam Vital Signs (past 8 hours): - 07/14/23 00:40 07/14/23 00:46 07/14/23 00:46 Temperature 97.9 F Pulse Rate 105 H 101 H Respiratory Rate 24 25 H Blood Pressure 89/51 L 85/48 L Pulse Oximetry 93 97 Oxygen Delivery Method Room Air Fraction of Inspired Oxygen 07/14/23 01:00 07/14/23 01:06 07/14/23 01:06 Temperature Pulse Rate 92 H 81 Respiratory Rate 26 H 15 Blood Pressure 78/41 L Pulse Oximetry 97 95 Oxygen Delivery Method Room Air Fraction of Inspired Oxygen 07/14/23 01:15 07/14/23 01:15 07/14/23 01:47 Temperature Pulse Rate 77 70 Respiratory Rate 15 Blood Pressure 90/45 L Pulse Oximetry 96 99 Oxygen Delivery Method Room Air Room Air Fraction of Inspired Oxygen 07/14/23 01:50 07/14/23 01:50 07/14/23 03:00 Temperature Pulse Rate 70 73 Respiratory Rate Blood Pressure 102/51 L Pulse Oximetry 99 94 Oxygen Delivery Method Fraction of Inspired Oxygen 07/14/23 03:15 07/14/23 03:15 07/14/23 03:30 Temperature Pulse Rate 67 72 Respiratory Rate Blood Pressure 97/53 L Pulse Oximetry 95 99 Oxygen Delivery Method Fraction of Inspired Oxygen 07/14/23 03:30 07/14/23 03:46 07/14/23 03:46 Temperature Pulse Rate 76 Respiratory Rate 15 Blood Pressure 103/55 L 105/54 L Pulse Oximetry 98 Oxygen Delivery Method Fraction of Inspired Oxygen 07/14/23 04:00 07/14/23 04:00 07/14/23 04:05 Temperature Pulse Rate 75 Respiratory Rate 14 Blood Pressure 99/52 L 130/66 Pulse Oximetry 99 Oxygen Delivery Method Fraction of Inspired Oxygen 07/14/23 04:05 07/14/23 04:27 07/14/23 04:30 Temperature Pulse Rate 93 H Respiratory Rate 11 L Blood Pressure 132/64 Pulse Oximetry 100 Oxygen Delivery Method Fraction of Inspired Oxygen 30 07/14/23 04:30 07/14/23 04:57 07/14/23 04:57 Temperature 94.6 F L 95.2 F L Pulse Rate 78 70 Respiratory Rate 18 16 Blood Pressure 119/58 L Pulse Oximetry 100 100 Oxygen Delivery Method Mechanical Ventilation Fraction of Inspired Oxygen 07/14/23 05:00 07/14/23 05:00 07/14/23 05:30 Temperature 95.2 F L 95.5 F L Pulse Rate 70 88 Respiratory Rate 16 17 Blood Pressure 117/63 Pulse Oximetry 100 99 Oxygen Delivery Method Mechanical Ventilation Fraction of Inspired Oxygen 07/14/23 05:30 07/14/23 05:33 07/14/23 05:51 Temperature 95.9 F L Pulse Rate 135 H 72 Respiratory Rate 19 16 Blood Pressure 135/71 Pulse Oximetry 100 Oxygen Delivery Method Fraction of Inspired Oxygen 07/14/23 05:52 07/14/23 05:52 07/14/23 06:00 Temperature 95.9 F L Pulse Rate 73 Respiratory Rate 16 Blood Pressure 105/58 L 98/55 L Pulse Oximetry 100 Oxygen Delivery Method Fraction of Inspired Oxygen 07/14/23 06:00 07/14/23 06:05 07/14/23 06:05 Temperature 95.9 F L 96.1 F L Pulse Rate 69 66 Respiratory Rate 16 16 Blood Pressure 95/51 L Pulse Oximetry 100 100 Oxygen Delivery Method Fraction of Inspired Oxygen 07/14/23 06:10 07/14/23 06:10 07/14/23 06:15 Temperature 96.1 F L 96.3 F L Pulse Rate 64 87 Respiratory Rate 16 16 Blood Pressure 100/59 L Pulse Oximetry 100 99 Oxygen Delivery Method Fraction of Inspired Oxygen 07/14/23 06:15 07/14/23 06:22 07/14/23 06:23 Temperature 96.4 F L Pulse Rate 66 Respiratory Rate 16 Blood Pressure 117/61 102/58 L Pulse Oximetry 100 Oxygen Delivery Method Fraction of Inspired Oxygen 07/14/23 06:23 07/14/23 06:30 07/14/23 06:30 Temperature 96.4 F L 96.6 F L Pulse Rate 65 63 Respiratory Rate 16 16 Blood Pressure 92/50 L Pulse Oximetry 100 100 Oxygen Delivery Method Fraction of Inspired Oxygen Fraction of Inspired Oxygen 30 Oxygen Delivery Method Mechanical Ventilation Narrative Exam Narrative: Sedated on a vent, saturates fine on FiO2 30%. Cardio Other: RRR GI Other: not distended Skin Other: w/o obvious rashes Extrem Other: 1+ edema b/l lower legs Objective Labs 07/14/23 01:24 07/14/23 01:24 Labs: Laboratory Results - last 24 hr 07/14/23 07/14/23 07/14/23 01:24 03:33 03:42 WBC 14.8 H RBC 3.80 L Hgb 11.4 L Hct 34.0 L MCV 89.4 MCH 29.9 MCHC 33.4 RDW 14.6 Plt Count 414 H Neut % (Auto) 86.2 H Lymph % (Auto) 7.7 L [place] % (Auto) 3.1 Eos % (Auto) 2.1 Baso % (Auto) 0.9 Neut # (Auto) 58445 H Lymph # (Auto) 1100 [place] # (Auto) 500 Eos # (Auto) 300 Baso # (Auto) 100 PT 11.5 INR 1.0 Sample Site N ABG Sample Site Right radial ABG pH 7.31 L ABG pCO2 29.2 L ABG pO2 72 L ABG HCO3 15 L ABG Total CO2 15 L ABG O2 Saturation 93 L ABG Base Excess -12.0 L FiO2 21 Sodium 142 Potassium 3.2 L Chloride 111 H Carbon Dioxide 18 L BUN 25 H Creatinine 1.41 H Estimated GFR 39 L BUN/Creatinine Ratio 17.7 Glucose 167 H Lactate 3.4 H Calcium 9.9 Magnesium 1.9 Total Bilirubin 0.6 AST 26 ALT 19 Alkaline Phosphatase 139 H Total Creatine Kinase 44 Troponin I < 0.012 Total Protein 8.3 H Albumin 4.5 Globulin 3.8 Albumin/Globulin Ratio 1.2 Procalcitonin 0.05 Urine Color Yellow Urine Appearance Clear Urine pH 5.5 Ur Specific [place] 1.010 Urine Protein Negative Urine Glucose (UA) Negative Urine Ketones Negative Urine Occult Blood Negative Urine Nitrate Negative Urine Bilirubin Negative Urine Urobilinogen 0.2 Ur Leukocyte Esterase Negative Urine RBC None seen Urine WBC None seen Ur Squamous Epith Cells 0-1 /hpf Urine Bacteria None seen Ur Culture Indicated? Cult not indicated Vol Urine Centrifuged 10ml (spun) 07/14/23 07/14/23 04:44 04:55 WBC RBC Hgb Hct MCV MCH MCHC RDW Plt Count Neut % (Auto) Lymph % (Auto) [place] % (Auto) Eos % (Auto) Baso % (Auto) Neut # (Auto) Lymph # (Auto) [place] # (Auto) Eos # (Auto) Baso # (Auto) PT INR Sample Site N ABG Sample Site Right radial ABG pH 7.43 ABG pCO2 26.2 L ABG pO2 103 H ABG HCO3 17 L ABG Total CO2 18 L ABG O2 Saturation 98 ABG Base Excess -7.0 L FiO2 30 Sodium Potassium Chloride Carbon Dioxide BUN Creatinine Estimated GFR BUN/Creatinine Ratio Glucose Lactate 0.9 Calcium Magnesium Total Bilirubin AST ALT Alkaline Phosphatase Total Creatine Kinase Troponin I Total Protein Albumin Globulin Albumin/Globulin Ratio Procalcitonin Urine Color Urine Appearance Urine pH Ur Specific [place] Urine Protein Urine Glucose (UA) Urine Ketones Urine Occult Blood Urine Nitrate Urine Bilirubin Urine Urobilinogen Ur Leukocyte Esterase Urine RBC Urine WBC Ur Squamous Epith Cells Urine Bacteria Ur Culture Indicated? Vol Urine Centrifuged Assessment & Plan Assessment and plan (1) Manic bipolar I disorder: Status: Acute Assessment & Plan narrative: 1. Manic phase, Bipolar 1 Disorder - she is very unstable on current prn Ativan and hs scheduled Seroquel and is having back to back hospitalizations - she used to be on lithium and switch to current Tx happened not so long ago, as per psychiatric consultation on previous hospitalization - her record lists lithium toxicity, possible reason for therapy change - DD - metabolic encephalopathy from suspected underlying infection / sepsis. BCs pending. Given 1 dose of abx. 2. Suspected Sepsis - IVFs, Levophed, BCs pending. - Rocephin 2 g given in the ED - further abx as per day hospitalist 3. VELASQUEZ - IVFs GI prophylaxis - Protonix DVT prophylaxis - heparin
[2023-07-14] MEDS: propofoL 200 MG/20 ML VIAL 50 MG IV (07:52)
[2023-07-14 08:31] LABS: Add Manual Diff / Slide Review NO; Basophils Absolute Auto 100 /uL (0-100); Basophils Percent Auto 0.9 % (0-2); Eosinophils Absolute Auto 0 /uL (0-450); Eosinophils Percent Auto 0.3 % (2-4); Hemoglobin 10.1 g/dL (12.0-16.0); Lymphocytes Absolute Auto 1900 /uL (1100-4500); Lymphocytes Percent Auto 15.2 % (25-40); Mean Corpuscular HGB Conc 33.7 % (30-36); Mean Corpuscular Hemoglobin 29.9 PG (26-34); Mean Corpuscular Volume 88.5 fL (80-100); Monocytes Absolute Auto 500 /uL (0-900); Monocytes Percent Auto 4.3 % (3-14); Neutrophils Absolute Auto 9800 /uL (1500-7000); Neutrophils Percent Auto 79.3 % (50-75); Platelet Count 321 X10^3/uL (150-400); Red Blood Cell Count 3.39 X10^6/uL (4.0-5.2); Red Cell Distribution Width 14.4 % (11.6-14.8); White Blood Cell Count 12.3 X10^3/uL (4.5-11.0)
[2023-07-14] MEDS: HEPARIN 5,000 UNIT/ML VIAL 5000 UNIT SUBCUT ×2 (08:33→21:17)
[2023-07-14] MEDS: PANTOPRAZOLE 40 MG VIAL IV (08:33)
[2023-07-14] MEDS: POTASSIUM CHLORIDE IN WATER 10 MEQ/100 ML PIGGYBACK 100 MEQ IV ×4 (08:34→12:16)
[2023-07-14 08:49] LABS: BUN Creatinine Ratio 20.8 (6-22); Blood Urea Nitrogen 21 mg/dL (7-17); Calcium 8.8 mg/dL (8.4-10.2); Carbon Dioxide 20 mmol/L (22-32); Chloride 117 mmol/L (98-107); Estimated Glomerular Filt Rate 59 mL/min (>60); Glucose 99 mg/dL (80-110); HEMOLYSIS < 15 (0-50); Potassium 3.5 mmol/L (3.4-5.1); Sodium 142 mmol/L (137-145)
[2023-07-14 09:13] LABS: UR Morphine/Opiate cutoff 300 Negative (Negative); Ur Creatinine Normal (Normal); Ur Specific Gravity Normal (Normal); Urine Amphetamines Negative (Negative); Urine Barbiturates Negative (Negative); Urine Benzodiazepines Negative (Negative); Urine Cocaine Negative (Negative); Urine MDMA Negative (Negative); Urine Methadone Negative (Negative); Urine Methamphetamines Negative (Negative); Urine Oxycodone Positive (Negative); Urine Phencyclidine Negative (Negative); Urine Tetrahydrocannabinol Negative (Negative); Urine Tricyclic Antidepressant Negative (Negative); Urine pH Normal (Normal)
--- NOTE | 2023-07-14 09:17 | PC.ADMIT ---
[address] Admission Note: Admission assessment completed to best of ability with . Patient intuabed and sedated, spent the previous day and night in the ED and is doing his best. The patient,Camilla Kim,73 y/o, was given written information regarding hospital policies, unit procedures and contact persons. Patient's smoking status: Never smoker. Vital Signs - 8 hr 07/14/23 00:40 07/14/23 00:46 07/14/23 00:46 Temperature 97.9 F Pulse Rate 105 H 101 H Respiratory Rate 24 25 H Blood Pressure 89/51 L 85/48 L Pulse Oximetry 93 97 Oxygen Delivery Method Room Air Fraction of Inspired Oxygen 07/14/23 01:00 07/14/23 01:06 07/14/23 01:06 Temperature Pulse Rate 92 H 81 Respiratory Rate 26 H 15 Blood Pressure 78/41 L Pulse Oximetry 97 95 Oxygen Delivery Method Room Air Fraction of Inspired Oxygen 07/14/23 01:15 07/14/23 01:15 07/14/23 01:47 Temperature Pulse Rate 77 70 Respiratory Rate 15 Blood Pressure 90/45 L Pulse Oximetry 96 99 Oxygen Delivery Method Room Air Room Air Fraction of Inspired Oxygen 07/14/23 01:50 07/14/23 01:50 07/14/23 03:00 Temperature Pulse Rate 70 73 Respiratory Rate Blood Pressure 102/51 L Pulse Oximetry 99 94 Oxygen Delivery Method Fraction of Inspired Oxygen 07/14/23 03:15 07/14/23 03:15 07/14/23 03:30 Temperature Pulse Rate 67 72 Respiratory Rate Blood Pressure 97/53 L Pulse Oximetry 95 99 Oxygen Delivery Method Fraction of Inspired Oxygen 07/14/23 03:30 07/14/23 03:46 07/14/23 03:46 Temperature Pulse Rate 76 Respiratory Rate 15 Blood Pressure 103/55 L 105/54 L Pulse Oximetry 98 Oxygen Delivery Method Fraction of Inspired Oxygen 07/14/23 04:00 07/14/23 04:00 07/14/23 04:05 Temperature Pulse Rate 75 Respiratory Rate 14 Blood Pressure 99/52 L 130/66 Pulse Oximetry 99 Oxygen Delivery Method Fraction of Inspired Oxygen 07/14/23 04:05 07/14/23 04:27 07/14/23 04:30 Temperature Pulse Rate 93 H Respiratory Rate 11 L Blood Pressure 132/64 Pulse Oximetry 100 Oxygen Delivery Method Fraction of Inspired Oxygen 30 07/14/23 04:30 07/14/23 04:57 07/14/23 04:57 Temperature 94.6 F L 95.2 F L Pulse Rate 78 70 Respiratory Rate 18 16 Blood Pressure 119/58 L Pulse Oximetry 100 100 Oxygen Delivery Method Mechanical Ventilation Fraction of Inspired Oxygen 07/14/23 05:00 07/14/23 05:00 07/14/23 05:01 Temperature 95.2 F L Pulse Rate 70 Respiratory Rate 16 Blood Pressure 117/63 Pulse Oximetry 100 Oxygen Delivery Method Mechanical Ventilation Fraction of Inspired Oxygen 07/14/23 05:30 07/14/23 05:30 07/14/23 05:33 Temperature 95.5 F L Pulse Rate 88 135 H Respiratory Rate 17 19 Blood Pressure 135/71 Pulse Oximetry 99 Oxygen Delivery Method Mechanical Ventilation Fraction of Inspired Oxygen 07/14/23 05:51 07/14/23 05:52 07/14/23 05:52 Temperature 95.9 F L 95.9 F L Pulse Rate 72 73 Respiratory Rate 16 16 Blood Pressure 105/58 L Pulse Oximetry 100 100 Oxygen Delivery Method Fraction of Inspired Oxygen 07/14/23 06:00 07/14/23 06:00 07/14/23 06:05 Temperature 95.9 F L 96.1 F L Pulse Rate 69 66 Respiratory Rate 16 16 Blood Pressure 98/55 L Pulse Oximetry 100 100 Oxygen Delivery Method Fraction of Inspired Oxygen 07/14/23 06:05 07/14/23 06:10 07/14/23 06:10 Temperature 96.1 F L Pulse Rate 64 Respiratory Rate 16 Blood Pressure 95/51 L 100/59 L Pulse Oximetry 100 Oxygen Delivery Method Fraction of Inspired Oxygen 07/14/23 06:15 07/14/23 06:15 07/14/23 06:22 Temperature 96.3 F L 96.4 F L Pulse Rate 87 66 Respiratory Rate 16 16 Blood Pressure 117/61 Pulse Oximetry 99 100 Oxygen Delivery Method Fraction of Inspired Oxygen 07/14/23 06:23 07/14/23 06:23 07/14/23 06:30 Temperature 96.4 F L 96.6 F L Pulse Rate 65 63 Respiratory Rate 16 16 Blood Pressure 102/58 L Pulse Oximetry 100 100 Oxygen Delivery Method Fraction of Inspired Oxygen 07/14/23 06:30 07/14/23 06:35 07/14/23 06:35 Temperature 96.6 F L Pulse Rate 63 Respiratory Rate 16 Blood Pressure 92/50 L 95/55 L Pulse Oximetry 100 Oxygen Delivery Method Fraction of Inspired Oxygen 07/14/23 06:40 07/14/23 06:40 07/14/23 06:45 Temperature 96.8 F L Pulse Rate 62 Respiratory Rate 16 Blood Pressure 94/56 L 93/54 L Pulse Oximetry 100 Oxygen Delivery Method Fraction of Inspired Oxygen 07/14/23 06:45 07/14/23 06:50 07/14/23 06:50 Temperature 96.8 F L 96.8 F L Pulse Rate 61 61 Respiratory Rate 16 16 Blood Pressure 98/58 L Pulse Oximetry 100 100 Oxygen Delivery Method Fraction of Inspired Oxygen 07/14/23 06:55 07/14/23 06:55 07/14/23 07:00 Temperature 97.0 F L Pulse Rate 61 Respiratory Rate 16 Blood Pressure 98/55 L 101/55 L Pulse Oximetry 99 Oxygen Delivery Method Fraction of Inspired Oxygen 07/14/23 07:00 07/14/23 07:05 07/14/23 07:05 Temperature 97.0 F L 97.2 F L Pulse Rate 60 60 Respiratory Rate 16 16 Blood Pressure 105/56 L Pulse Oximetry 99 100 Oxygen Delivery Method Fraction of Inspired Oxygen 07/14/23 07:10 07/14/23 07:10 07/14/23 07:15 Temperature 97.2 F L Pulse Rate 60 Respiratory Rate 16 Blood Pressure 102/57 L 101/55 L Pulse Oximetry 100 Oxygen Delivery Method Mechanical Ventilation Fraction of Inspired Oxygen 07/14/23 07:15 07/14/23 07:20 07/14/23 07:20 Temperature 97.3 F L 97.3 F L Pulse Rate 60 59 L Respiratory Rate 16 16 Blood Pressure 107/57 L Pulse Oximetry 100 100 Oxygen Delivery Method Mechanical Ventilation Fraction of Inspired Oxygen 07/14/23 07:25 07/14/23 07:25 07/14/23 07:30 Temperature 97.3 F L 97.5 F L Pulse Rate 61 57 L Respiratory Rate 16 16 Blood Pressure 114/60 Pulse Oximetry 100 100 Oxygen Delivery Method Mechanical Ventilation Fraction of Inspired Oxygen 07/14/23 07:30 07/14/23 07:35 07/14/23 07:35 Temperature 97.5 F L Pulse Rate 58 L Respiratory Rate 16 Blood Pressure 118/65 117/62 Pulse Oximetry 100 Oxygen Delivery Method Fraction of Inspired Oxygen 07/14/23 07:41 07/14/23 07:41 07/14/23 07:44 Temperature 97.5 F L Pulse Rate 115 H Respiratory Rate 27 H Blood Pressure 137/86 124/54 L Pulse Oximetry 97 Oxygen Delivery Method Mechanical Ventilation Fraction of Inspired Oxygen 07/14/23 07:44 07/14/23 07:45 07/14/23 07:45 Temperature 97.7 F 97.7 F Pulse Rate 98 H 87 Respiratory Rate 16 16 Blood Pressure 116/56 L Pulse Oximetry 96 96 Oxygen Delivery Method Mechanical Ventilation Fraction of Inspired Oxygen 07/14/23 07:48 07/14/23 07:48 07/14/23 07:51 Temperature 97.7 F Pulse Rate 77 Respiratory Rate 16 Blood Pressure 100/57 L 99/57 L Pulse Oximetry 96 Oxygen Delivery Method Fraction of Inspired Oxygen 07/14/23 07:51 07/14/23 07:54 07/14/23 07:54 Temperature 97.7 F 97.7 F Pulse Rate 72 69 Respiratory Rate 16 16 Blood Pressure 98/57 L Pulse Oximetry 96 97 Oxygen Delivery Method Mechanical Ventilation Fraction of Inspired Oxygen 07/14/23 07:59 07/14/23 07:59 07/14/23 08:00 Temperature 97.7 F 97.9 F Pulse Rate 66 64 Respiratory Rate Blood Pressure 105/57 L Pulse Oximetry 98 98 Oxygen Delivery Method Mechanical Ventilation Fraction of Inspired Oxygen 07/14/23 08:00 07/14/23 08:32 07/14/23 09:00 Temperature 97.7 F 97.9 F 97.9 F Pulse Rate 59 L 59 L 58 L Respiratory Rate 16 16 16 Blood Pressure 101/56 L Pulse Oximetry 100 100 100 Oxygen Delivery Method Fraction of Inspired Oxygen 30
[2023-07-14] MEDS: CEFEPIME 2 GM in SODIUM CHLORIDE 0.9% 100 ML IV ×2 (10:14→21:17)
[2023-07-14 10:27] LABS: MRSA (Nasal) PCR DETECTED (Not Detect)
--- NOTE | 2023-07-14 10:28 | DI.RAD.S_ITS ---
PROCEDURE: XR CHEST 1V INDICATIONS: check ET tube placement post-withdrawal TECHNIQUE: One view of the chest was acquired. COMPARISON: [facility], CR, XR CHEST 1V, 07/14/2023, 0:47. [facility], CR, XR CHEST 1V, 07/14/2023, 5:42. FINDINGS: Surgical changes and devices: An endotracheal tube is seen, with the tip 7-8 cm above the sumeet. The tip of the right-sided central line is seen overlying the mid superior vena cava, 3 cm above the cavoatrial junction. The tip of the gastric tube is off of the field of view of this study, yet is seen at least to the level of the mid stomach. Cholecystectomy clips are seen. Lungs and pleura: Lungs are clear. No pleural effusions or pneumothorax. Mediastinum: Mediastinal contours appear normal. Heart size is normal. Atherosclerotic calcification of the aortic arch is noted. Bones and chest wall: No suspicious bony lesions. Age-appropriate bony degenerative changes are seen. Overlying soft tissues appear unremarkable. IMPRESSION: The tip of the endotracheal tube is now seen 7-8 cm above the level of the sumeet. Dictated by: Zac Ch M.D. on 07/14/2023 at 9:45 Approved by: Zac Ch M.D. on 07/14/2023 at 9:47
[2023-07-14] MEDS: VANCOMYCIN 1,500 MG/300 ML PIGGYBACK 200 MG IV (11:00)
--- NOTE | 2023-07-14 12:13 | P.TELICUCN_ITS ---
History of Present Illness Consult details IF CAMERA ACTIVATED, patient seen via real-time interactive audiovisual communication: Camera activated Chief complaint: manic Consent obtained for tele-trap operator care: Yes Patient Location: ICU Provider location (State): [place] Other participants/roles: rn Narrative: 73 y/o with PMH of Bipolar Disorder presented confused, agitated, disoriented trasnferred t othe ICU after being intubated for gcs < 8. she has had similar presentations in the past for medication non compliance though today given her gcs she was emergently intubated. etiolgoy is unclear but on report given to me she nay have taken possible overdose of baclofen ( not confirmed yet) utox otherwie positve for opiates. Currently her mental status seems unchaged. [facility] Medical History Eczema Hypothyroidism (acquired) Bipolar disorder Hypertension Surgical History Hx of cholecystectomy Family History Mother Alcohol abuse Father CVA (cerebral vascular accident) Social History household members: spouse Smoking Status: Never smoker alcohol intake: former Current Medications Current Medications Medications: Home Medications amlodipine 10 mg tablet 10 mg PO BEDTIME 03/06/20 [History Confirmed 06/21/23] metoclopramide HCl 10 mg tablet (Reglan) 10 mg PO Q6H PRN nausea and vomiting #14 tabs 08/27/21 [Rx Confirmed 06/21/23] atorvastatin 20 mg tablet 20 mg PO BEDTIME 04/22/22 [History Confirmed 06/21/23] betamethasone dipropionate 0.05 % topical cream 0.05 applic topical BID eczema 04/22/22 [History Confirmed 06/21/23] oxycodone 5 mg tablet 5 mg PO TID PRN pain 04/22/22 [History Confirmed 06/21/23] ondansetron 4 mg disintegrating tablet 4 mg PO Q8H PRN nausea and vomiting #14 tabs 05/08/22 [Rx Confirmed 06/21/23] levothyroxine 75 mcg tablet (Synthroid) 75 mcg PO DAILY@0600 #30 tabs 05/13/22 [Rx Confirmed 06/21/23] Calcium 500 1 tab PO BEDTIME 06/13/23 [History Confirmed 06/21/23] lorazepam 1 mg tablet 0.5 mg PO 3XD 06/13/23 [History Confirmed 06/21/23] gabapentin 300 mg capsule 300 mg PO BID 06/21/23 [History Confirmed 06/21/23] quetiapine 300 mg tablet 300 mg PO BEDTIME #30 tabs 06/27/23 [Rx] Visit Medications (administered) Generic Name Dose Route Start Last Admin Trade Name Freq PRN Reason Stop Dose Admin Chlorhexidine Gluconate 15 ml 07/14/23 06:00 07/14/23 05:45 Chlorhexidine Gluconate 15 Ml Cup PO 15 ml Q6HR ANDRESSA Administration Heparin Sodium (Porcine) 5,000 unit 07/14/23 09:00 07/14/23 08:33 Heparin 5,000 Unit/Ml Vial SUBCUT 5,000 unit BID ANDRESSA Administration Propofol 1,000 mg in 100 mls @ 2.055 mls/hr 07/14/23 04:45 07/14/23 08:05 Propofol IV 10 mcg/kg/min TITRATE ANDRESSA 4.11 mls/hr Titration Protocol 5 MCG/KG/MIN NOREPINEPHRINE BITARTRATE/D5W 4 mg in 250 mls @ 25.685 mls/hr 07/14/23 04:40 07/14/23 07:23 Levophed IV Not Given TITRATE ANDRESSA Protocol 0.1 MCG/KG/MIN POTASSIUM CHLORIDE IN WATER 10 meq in 100 mls @ 100 mls/hr 07/14/23 09:15 07/14/23 10:59 Potassium Cl 10 Meq/100 Ml Karissa IV 07/14/23 12:14 100 mls/hr Q1H ANDRESSA Administration Cefepime HCl 2 gm/ Sodium 100 mls @ 200 mls/hr 07/14/23 09:15 07/14/23 10:14 Chloride IV 200 mls/hr Q12H ANDRESSA Administration Pantoprazole Sodium 40 mg 07/14/23 09:00 07/14/23 08:33 Pantoprazole 40 Mg Vial IV 40 mg DAILY ANDRESSA Administration Exam Vital Signs (past 8 hours): - 07/14/23 04:27 07/14/23 04:30 07/14/23 04:30 Temperature 94.6 F L Pulse Rate 78 Respiratory Rate 18 Blood Pressure 132/64 Pulse Oximetry 100 Oxygen Delivery Method Mechanical Ventilation Fraction of Inspired Oxygen 30 07/14/23 04:57 07/14/23 04:57 07/14/23 05:00 Temperature 95.2 F L 95.2 F L Pulse Rate 70 70 Respiratory Rate 16 16 Blood Pressure 119/58 L Pulse Oximetry 100 100 Oxygen Delivery Method Fraction of Inspired Oxygen 07/14/23 05:00 07/14/23 05:01 07/14/23 05:30 Temperature 95.5 F L Pulse Rate 88 Respiratory Rate 17 Blood Pressure 117/63 Pulse Oximetry 99 Oxygen Delivery Method Mechanical Ventilation Mechanical Ventilation Fraction of Inspired Oxygen 07/14/23 05:30 07/14/23 05:33 07/14/23 05:51 Temperature 95.9 F L Pulse Rate 135 H 72 Respiratory Rate 19 16 Blood Pressure 135/71 Pulse Oximetry 100 Oxygen Delivery Method Fraction of Inspired Oxygen 07/14/23 05:52 07/14/23 05:52 07/14/23 06:00 Temperature 95.9 F L Pulse Rate 73 Respiratory Rate 16 Blood Pressure 105/58 L 98/55 L Pulse Oximetry 100 Oxygen Delivery Method Fraction of Inspired Oxygen 07/14/23 06:00 07/14/23 06:05 07/14/23 06:05 Temperature 95.9 F L 96.1 F L Pulse Rate 69 66 Respiratory Rate 16 16 Blood Pressure 95/51 L Pulse Oximetry 100 100 Oxygen Delivery Method Fraction of Inspired Oxygen 07/14/23 06:10 07/14/23 06:10 07/14/23 06:15 Temperature 96.1 F L 96.3 F L Pulse Rate 64 87 Respiratory Rate 16 16 Blood Pressure 100/59 L Pulse Oximetry 100 99 Oxygen Delivery Method Fraction of Inspired Oxygen 07/14/23 06:15 07/14/23 06:22 07/14/23 06:23 Temperature 96.4 F L Pulse Rate 66 Respiratory Rate 16 Blood Pressure 117/61 102/58 L Pulse Oximetry 100 Oxygen Delivery Method Fraction of Inspired Oxygen 07/14/23 06:23 07/14/23 06:30 07/14/23 06:30 Temperature 96.4 F L 96.6 F L Pulse Rate 65 63 Respiratory Rate 16 16 Blood Pressure 92/50 L Pulse Oximetry 100 100 Oxygen Delivery Method Fraction of Inspired Oxygen 07/14/23 06:35 07/14/23 06:35 07/14/23 06:40 Temperature 96.6 F L Pulse Rate 63 Respiratory Rate 16 Blood Pressure 95/55 L 94/56 L Pulse Oximetry 100 Oxygen Delivery Method Fraction of Inspired Oxygen 07/14/23 06:40 07/14/23 06:45 07/14/23 06:45 Temperature 96.8 F L 96.8 F L Pulse Rate 62 61 Respiratory Rate 16 16 Blood Pressure 93/54 L Pulse Oximetry 100 100 Oxygen Delivery Method Fraction of Inspired Oxygen 07/14/23 06:50 07/14/23 06:50 07/14/23 06:55 Temperature 96.8 F L Pulse Rate 61 Respiratory Rate 16 Blood Pressure 98/58 L 98/55 L Pulse Oximetry 100 Oxygen Delivery Method Fraction of Inspired Oxygen 07/14/23 06:55 07/14/23 07:00 07/14/23 07:00 Temperature 97.0 F L 97.0 F L Pulse Rate 61 60 Respiratory Rate 16 16 Blood Pressure 101/55 L Pulse Oximetry 99 99 Oxygen Delivery Method Fraction of Inspired Oxygen 07/14/23 07:05 07/14/23 07:05 07/14/23 07:10 Temperature 97.2 F L 97.2 F L Pulse Rate 60 60 Respiratory Rate 16 16 Blood Pressure 105/56 L Pulse Oximetry 100 100 Oxygen Delivery Method Mechanical Ventilation Fraction of Inspired Oxygen 07/14/23 07:10 07/14/23 07:15 07/14/23 07:15 Temperature 97.3 F L Pulse Rate 60 Respiratory Rate 16 Blood Pressure 102/57 L 101/55 L Pulse Oximetry 100 Oxygen Delivery Method Mechanical Ventilation Fraction of Inspired Oxygen 07/14/23 07:20 07/14/23 07:20 07/14/23 07:25 Temperature 97.3 F L Pulse Rate 59 L Respiratory Rate 16 Blood Pressure 107/57 L 114/60 Pulse Oximetry 100 Oxygen Delivery Method Fraction of Inspired Oxygen 07/14/23 07:25 07/14/23 07:30 07/14/23 07:30 Temperature 97.3 F L 97.5 F L Pulse Rate 61 57 L Respiratory Rate 16 16 Blood Pressure 118/65 Pulse Oximetry 100 100 Oxygen Delivery Method Mechanical Ventilation Fraction of Inspired Oxygen 07/14/23 07:35 07/14/23 07:35 07/14/23 07:41 Temperature 97.5 F L Pulse Rate 58 L Respiratory Rate 16 Blood Pressure 117/62 137/86 Pulse Oximetry 100 Oxygen Delivery Method Fraction of Inspired Oxygen 07/14/23 07:41 07/14/23 07:44 07/14/23 07:44 Temperature 97.5 F L 97.7 F Pulse Rate 115 H 98 H Respiratory Rate 27 H 16 Blood Pressure 124/54 L Pulse Oximetry 97 96 Oxygen Delivery Method Mechanical Ventilation Mechanical Ventilation Fraction of Inspired Oxygen 07/14/23 07:45 07/14/23 07:45 07/14/23 07:48 Temperature 97.7 F Pulse Rate 87 Respiratory Rate 16 Blood Pressure 116/56 L 100/57 L Pulse Oximetry 96 Oxygen Delivery Method Fraction of Inspired Oxygen 07/14/23 07:48 07/14/23 07:51 07/14/23 07:51 Temperature 97.7 F 97.7 F Pulse Rate 77 72 Respiratory Rate 16 16 Blood Pressure 99/57 L Pulse Oximetry 96 96 Oxygen Delivery Method Fraction of Inspired Oxygen 07/14/23 07:54 07/14/23 07:54 07/14/23 07:59 Temperature 97.7 F 97.7 F Pulse Rate 69 66 Respiratory Rate 16 Blood Pressure 98/57 L Pulse Oximetry 97 98 Oxygen Delivery Method Mechanical Ventilation Fraction of Inspired Oxygen 07/14/23 07:59 07/14/23 08:00 07/14/23 08:00 Temperature 97.9 F 97.7 F Pulse Rate 64 59 L Respiratory Rate 16 Blood Pressure 105/57 L 101/56 L Pulse Oximetry 98 100 Oxygen Delivery Method Mechanical Ventilation Fraction of Inspired Oxygen 30 07/14/23 08:32 07/14/23 09:00 07/14/23 09:15 Temperature 97.9 F 97.9 F 97.7 F Pulse Rate 59 L 58 L 57 L Respiratory Rate 16 16 16 Blood Pressure Pulse Oximetry 100 100 100 Oxygen Delivery Method Fraction of Inspired Oxygen 07/14/23 09:15 07/14/23 09:30 07/14/23 09:30 Temperature 97.7 F Pulse Rate 55 L Respiratory Rate 16 Blood Pressure 108/59 L 116/57 L Pulse Oximetry 100 Oxygen Delivery Method Fraction of Inspired Oxygen 07/14/23 09:45 07/14/23 09:45 07/14/23 10:00 Temperature 97.7 F 97.7 F Pulse Rate 56 L 65 Respiratory Rate 16 16 Blood Pressure 114/58 L Pulse Oximetry 100 100 Oxygen Delivery Method Fraction of Inspired Oxygen 07/14/23 10:01 07/14/23 10:01 07/14/23 10:15 Temperature 97.7 F Pulse Rate 93 H Respiratory Rate 24 Blood Pressure 147/88 H 132/64 Pulse Oximetry 100 Oxygen Delivery Method Fraction of Inspired Oxygen 07/14/23 10:15 07/14/23 10:30 07/14/23 10:30 Temperature 97.7 F 97.7 F Pulse Rate 56 L 55 L Respiratory Rate 16 16 Blood Pressure 130/64 Pulse Oximetry 100 100 Oxygen Delivery Method Fraction of Inspired Oxygen 07/14/23 10:45 07/14/23 10:45 07/14/23 11:00 Temperature 97.5 F L 97.7 F Pulse Rate 63 59 L Respiratory Rate 16 16 Blood Pressure 134/68 Pulse Oximetry 100 100 Oxygen Delivery Method Fraction of Inspired Oxygen 07/14/23 11:00 07/14/23 11:15 07/14/23 11:15 Temperature 97.7 F Pulse Rate 59 L Respiratory Rate 16 Blood Pressure 133/73 128/63 Pulse Oximetry 100 Oxygen Delivery Method Fraction of Inspired Oxygen 07/14/23 11:30 07/14/23 11:30 07/14/23 11:45 Temperature 97.7 F Pulse Rate 55 L Respiratory Rate 16 Blood Pressure 123/60 121/60 Pulse Oximetry 100 Oxygen Delivery Method Fraction of Inspired Oxygen 07/14/23 11:45 07/14/23 11:53 07/14/23 12:00 Temperature 97.7 F Pulse Rate 53 L Respiratory Rate 16 Blood Pressure 123/64 Pulse Oximetry 100 Oxygen Delivery Method Mechanical Ventilation Fraction of Inspired Oxygen 07/14/23 12:00 Temperature 97.7 F Pulse Rate 53 L Respiratory Rate 16 Blood Pressure Pulse Oximetry 100 Oxygen Delivery Method Fraction of Inspired Oxygen Fraction of Inspired Oxygen 30 Oxygen Delivery Method Mechanical Ventilation Narrative Exam Narrative: intubated Resp Other: symmnetric chest rise Cardio Other: sinus lexi Objective Labs 07/14/23 08:22 07/14/23 08:22 Labs: Laboratory Results - last 24 hr 07/14/23 07/14/23 07/14/23 01:24 03:33 03:42 WBC 14.8 H RBC 3.80 L Hgb 11.4 L Hct 34.0 L MCV 89.4 MCH 29.9 MCHC 33.4 RDW 14.6 Plt Count 414 H Neut % (Auto) 86.2 H Lymph % (Auto) 7.7 L [place] % (Auto) 3.1 Eos % (Auto) 2.1 Baso % (Auto) 0.9 Neut # (Auto) 27707 H Lymph # (Auto) 1100 [place] # (Auto) 500 Eos # (Auto) 300 Baso # (Auto) 100 PT 11.5 INR 1.0 Sample Site N ABG Sample Site Right radial ABG pH 7.31 L ABG pCO2 29.2 L ABG pO2 72 L ABG HCO3 15 L ABG Total CO2 15 L ABG O2 Saturation 93 L ABG Base Excess -12.0 L FiO2 21 Sodium 142 Potassium 3.2 L Chloride 111 H Carbon Dioxide 18 L BUN 25 H Creatinine 1.41 H Estimated GFR 39 L BUN/Creatinine Ratio 17.7 Glucose 167 H Lactate 3.4 H Calcium 9.9 Magnesium 1.9 Total Bilirubin 0.6 AST 26 ALT 19 Alkaline Phosphatase 139 H Total Creatine Kinase 44 Troponin I < 0.012 Total Protein 8.3 H Albumin 4.5 Globulin 3.8 Albumin/Globulin Ratio 1.2 Procalcitonin 0.05 Urine Color Yellow Urine Appearance Clear Urine pH 5.5 Ur Specific [place] 1.010 Urine Protein Negative Urine Glucose (UA) Negative Urine Ketones Negative Urine Occult Blood Negative Urine Nitrate Negative Urine Bilirubin Negative Urine Urobilinogen 0.2 Ur Leukocyte Esterase Negative Urine RBC None seen Urine WBC None seen Ur Squamous Epith Cells 0-1 /hpf Urine Bacteria None seen Ur Culture Indicated? Cult not indicated Vol Urine Centrifuged 10ml (spun) Nasal Screen MRSA (PCR) U Opiates 300ng/mL cut Ur Oxycodone Screen Urine Methadone Screen Ur Barbiturates Screen U Tricyclic Antidepress Ur Phencyclidine Scrn Ur Amphetamines Screen U Methamphetamines Scrn Ur MDMA Scrn (Ecstasy) U Benzodiazepines Scrn Urine Cocaine Screen U Marijuana (THC) Screen Urine Specific [place] Ur Creatinine 07/14/23 07/14/23 07/14/23 04:44 04:55 07:30 WBC RBC Hgb Hct MCV MCH MCHC RDW Plt Count Neut % (Auto) Lymph % (Auto) [place] % (Auto) Eos % (Auto) Baso % (Auto) Neut # (Auto) Lymph # (Auto) [place] # (Auto) Eos # (Auto) Baso # (Auto) PT INR Sample Site N ABG Sample Site Right radial ABG pH 7.43 ABG pCO2 26.2 L ABG pO2 103 H ABG HCO3 17 L ABG Total CO2 18 L ABG O2 Saturation 98 ABG Base Excess -7.0 L FiO2 30 Sodium Potassium Chloride Carbon Dioxide BUN Creatinine Estimated GFR BUN/Creatinine Ratio Glucose Lactate 0.9 Calcium Magnesium Total Bilirubin AST ALT Alkaline Phosphatase Total Creatine Kinase Troponin I Total Protein Albumin Globulin Albumin/Globulin Ratio Procalcitonin Urine Color Urine Appearance Urine pH Normal Ur Specific [place] Urine Protein Urine Glucose (UA) Urine Ketones Urine Occult Blood Urine Nitrate Urine Bilirubin Urine Urobilinogen Ur Leukocyte Esterase Urine RBC Urine WBC Ur Squamous Epith Cells Urine Bacteria Ur Culture Indicated? Vol Urine Centrifuged Nasal Screen MRSA (PCR) Detected H U Opiates 300ng/mL cut Negative Ur Oxycodone Screen Positive H Urine Methadone Screen Negative Ur Barbiturates Screen Negative U Tricyclic Antidepress Negative Ur Phencyclidine Scrn Negative Ur Amphetamines Screen Negative U Methamphetamines Scrn Negative Ur MDMA Scrn (Ecstasy) Negative U Benzodiazepines Scrn Negative Urine Cocaine Screen Negative U Marijuana (THC) Screen Negative Urine Specific [place] Normal Ur Creatinine Normal 07/14/23 08:22 WBC 12.3 H RBC 3.39 L Hgb 10.1 L Hct 30.0 L MCV 88.5 MCH 29.9 MCHC 33.7 RDW 14.4 Plt Count 321 Neut % (Auto) 79.3 H Lymph % (Auto) 15.2 L [place] % (Auto) 4.3 Eos % (Auto) 0.3 L Baso % (Auto) 0.9 Neut # (Auto) 9800 H Lymph # (Auto) 1900 [place] # (Auto) 500 Eos # (Auto) 0 Baso # (Auto) 100 PT INR Sample Site ABG Sample Site ABG pH ABG pCO2 ABG pO2 ABG HCO3 ABG Total CO2 ABG O2 Saturation ABG Base Excess FiO2 Sodium 142 Potassium 3.5 Chloride 117 H Carbon Dioxide 20 L BUN 21 H Creatinine 1.01 Estimated GFR 59 L BUN/Creatinine Ratio 20.8 Glucose 99 Lactate Calcium 8.8 Magnesium Total Bilirubin AST ALT Alkaline Phosphatase Total Creatine Kinase Troponin I Total Protein Albumin Globulin Albumin/Globulin Ratio Procalcitonin Urine Color Urine Appearance Urine pH Ur Specific [place] Urine Protein Urine Glucose (UA) Urine Ketones Urine Occult Blood Urine Nitrate Urine Bilirubin Urine Urobilinogen Ur Leukocyte Esterase Urine RBC Urine WBC Ur Squamous Epith Cells Urine Bacteria Ur Culture Indicated? Vol Urine Centrifuged Nasal Screen MRSA (PCR) U Opiates 300ng/mL cut Ur Oxycodone Screen Urine Methadone Screen Ur Barbiturates Screen U Tricyclic Antidepress Ur Phencyclidine Scrn Ur Amphetamines Screen U Methamphetamines Scrn Ur MDMA Scrn (Ecstasy) U Benzodiazepines Scrn Urine Cocaine Screen U Marijuana (THC) Screen Urine Specific [place] Ur Creatinine Assessment & Plan Assessment and plan (1) Manic bipolar I disorder: Status: Acute (2) Acute metabolic encephalopathy: Status: Acute (3) VELASQUEZ (acute kidney injury): Status: Acute (4) Acute respiratory failure: Status: Acute (5) Encephalopathy acute: Status: Acute (6) Hyperchloremic acidosis: Status: Acute Plan vent/sedation bundle, would hold sedation and use only as needed for synchrony trend ABG LTVV TF and Free wate flushes for hyperchloremia trend bmp monitor UO on empirx abx dvt ppx gi ppx Depending on her course today,m if there is no change in her mental status by this evening, I think furhter neuro work upo should be done - MRI, eeg and LP. however if it starts to imrpove this could be the result of polypharmacy ( opiods and baclofen + gabapentin) I will also start TF and free water flushes for hyperchlroemic acidosis ttoal CCT 35 min
--- NOTE | 2023-07-14 12:57 | CM.DANOTE ---
Patient is a 73 yo F, recently admitted at 06/14-06/15 and then again 06/21-06/27/23 for altered mental status, hx Bipolar disorder; AMS suspected to be sec to stopping her home medications of Seroquel, Ativan and Trazadone. Patient had been restarted on her home meds during last admission and cognition had improved. Patient was discharged home with spouse. Patient returns with altered mental status and manic presentation-although pt was obtunded in the ED and was intubated to preserve her airways and remains intubated at this time. Thus far, medical work up shows no medical component to this presentation. Spoke with spouse Britton via phone and he reports that up until approx three weeks ago, patient was independent in all aspects and A+Ox4. They live in [place] and have local supportive son Joe and spouse assists with med management. Pt is currently open with [facility]ene [facility] and SW confirmed with intake Coral. SW faxed H&P to Sharlene to review. Spouse confirmed that pt has a long MH hx with her bipolar dx and most recent was an Involuntary Placement at [facility] in Dec 2015. Pt has no hospitalizations for MH since 2016. Pt remains established with [facility] for med management and spouse states Cecilia is aware of pt's two hospital admissions in Jun 2023 for AMS/psych med issues and they had a Telehealth with [facility] last week. Pt was last established with a MH therapist about 3 years ago in [facility] with a therapist named Lizz. Spouse feels that pt needs some increased MH support (possible switch from VETERINARY PHARMACOLOGIST to a Psychiatrist, re-establishing with a MH therapist, etc..) but spouse is unsure if pt will be agreeable. SW inquired about Inpt MH at d/c and spouse states I'd like to give Camilla the benefit of the doubt and see how she is doing once she is extubated, she has bounced back every time from so many things. SW confirmed that spouse and pt have not completed DPOA pwk and states he did not receive a copy last admission but feels this is highly important to complete nazanin. SW provided the DPOA brochure and blank copy to review and updated spouse that pt will need to be alert and oriented in order for her to complete the pwk and spouse acknowledged understanding. Plan: SW to follow closely for eventual attempts at extubations towards determining pt's discharge planning needs of home with spouse and close outpt f/u vs possible need for Inpt MH tx as this is pt's 3rd admission to the hospital in a month. CRUZ [place] Discharge Planning/Care Management CM Discharge Assessment Start: 07/14/23 12:51 Freq: Status: Active Protocol: Document 07/14/23 12:51 BF (Rec: 07/14/23 12:57 BF [id number]) Discharge Planning Assessment Assigned Signing Teacher CRUZ Morgan DPOA/Assigned Designee Name informally spouse Britton Contact Information [phone] Advance Directives? No Advance Directives on File No History Provided By Significant Other,Medical Record Has Patient been admitted in last 30 Yes days? Comment 06/13-06/15/23 and then 06/21-06/27 for similar and discharged home with spouse and outpt MH Prior Living Arrangements House Household Members spouse Type of transporation used prior to Relies on Others admit Independent with ADL's Yes Is patient alert and oriented? Yes: some mental health Bipolar Needs Assistance With Managing Medications,Home Chores / Shopping Caregiver for Another No Barriers to Discharge Yes Comment Considered to be acutely psychotic. Plan TBD. Discharge Plan Psychiatric Facility Transportation Arrangement TBD Referrals Initiated Other Additional Comment See narrative If patient plan is home with home health Yes: if safe for home, open : Has signed face to face form been with Sharlene CHÁVEZ completed? Whiteboard Updated in Patient Room with Yes name and ext. # of Signing Teacher Review Status In Process Please Provide Date Initial DC 07/14/23 Assessment Was Performed Next Review Type Continued Stay Review
[2023-07-14] MEDS: fentaNYL 1,000 MCG in DEXTROSE 5% IN WATER 230 ML 12.093 MCG IV (13:46)
[2023-07-14] MEDS: propofoL 1,000 MG/100 ML VIAL 6.164 MG IV (13:47)
--- NOTE | 2023-07-14 18:47 | P.HP_ITS ---
History of Present Illness History of Present Illness Chief complaint: manic Narrative: 73 y/o with PMH of Bipolar Disorder presented confused, agitated, disoriented and quickly intubated for airway protection. Per she was taking too much of her meds including baclofen and oxycodone for her foot pain. Initial workup shows leukocytosis, left shift, elevated LA, VELASQUEZ and no obvious source of infection, with clear CXR and UA. Covered with empiric Rocephin, given IVFs, BCs pending. Similar presentation few weeks ago. She was suspected on non-compliance with medications, apparently she was off Seroquel. Seen by psychiatry and discharged on previous regimen of prn Ativan and scheduled hs Seroquel. Supposed to follow with primary psychiatrist but I don't know if that ever happened. [facility] Medical History Eczema Hypothyroidism (acquired) Bipolar disorder Hypertension Surgical History Hx of cholecystectomy Family History Mother Alcohol abuse Father CVA (cerebral vascular accident) Social History household members: spouse Smoking Status: Never smoker alcohol intake: former Meds Home Medications and Allergies Home Medications Medication Instructions Recorded Confirmed Type amlodipine 10 mg tablet 10 mg PO BEDTIME 03/06/20 06/21/23 History metoclopramide HCl 10 mg tablet 10 mg PO Q6H PRN nausea and 08/27/21 06/21/23 Rx (Reglan) vomiting #14 tabs atorvastatin 20 mg tablet 20 mg PO BEDTIME 04/22/22 06/21/23 History betamethasone dipropionate 0.05 % 0.05 applic topical BID eczema 04/22/22 06/21/23 History topical cream oxycodone 5 mg tablet 5 mg PO TID PRN pain 04/22/22 06/21/23 History ondansetron 4 mg disintegrating 4 mg PO Q8H PRN nausea and 05/08/22 06/21/23 Rx tablet vomiting #14 tabs levothyroxine 75 mcg tablet 75 mcg PO DAILY@0600 #30 tabs 05/13/22 06/21/23 Rx (Synthroid) Calcium 500 1 tab PO BEDTIME 06/13/23 06/21/23 History lorazepam 1 mg tablet 0.5 mg PO 3XD 06/13/23 06/21/23 History gabapentin 300 mg capsule 300 mg PO BID 06/21/23 06/21/23 History quetiapine 300 mg tablet 300 mg PO BEDTIME #30 tabs 06/27/23 Rx Allergies Allergy/AdvReac Type Severity Reaction Status Date / Time Sulfa (Sulfonamide Allergy Unknown Verified 06/13/23 18:05 Antibiotics) desipramine Allergy Rash Verified 06/13/23 18:05 Review of Systems Review of Systems Narrative: Unobtainable - intubated on a ventilator Exam Narrative Exam Narrative: GEN: Intubated and sedated HEENT: moist mucous membranes, PERRL NECK: trachea midline, no JVD CV: regular rate and rhythm, no murmurs PULM: clear bilaterally ABD: soft, nontender, nondistended, no organomegaly EXT: warm and well perfused with no edema NEURO: no focal deficits Objective Labs 07/14/23 08:22 07/14/23 08:22 Labs: Laboratory Results - last 24 hr 07/14/23 07/14/23 07/14/23 01:24 03:33 03:42 WBC 14.8 H RBC 3.80 L Hgb 11.4 L Hct 34.0 L MCV 89.4 MCH 29.9 MCHC 33.4 RDW 14.6 Plt Count 414 H Neut % (Auto) 86.2 H Lymph % (Auto) 7.7 L [place] % (Auto) 3.1 Eos % (Auto) 2.1 Baso % (Auto) 0.9 Neut # (Auto) 98794 H Lymph # (Auto) 1100 [place] # (Auto) 500 Eos # (Auto) 300 Baso # (Auto) 100 PT 11.5 INR 1.0 Sample Site N ABG Sample Site Right radial ABG pH 7.31 L ABG pCO2 29.2 L ABG pO2 72 L ABG HCO3 15 L ABG Total CO2 15 L ABG O2 Saturation 93 L ABG Base Excess -12.0 L FiO2 21 Sodium 142 Potassium 3.2 L Chloride 111 H Carbon Dioxide 18 L BUN 25 H Creatinine 1.41 H Estimated GFR 39 L BUN/Creatinine Ratio 17.7 Glucose 167 H Lactate 3.4 H Calcium 9.9 Magnesium 1.9 Total Bilirubin 0.6 AST 26 ALT 19 Alkaline Phosphatase 139 H Total Creatine Kinase 44 Troponin I < 0.012 Total Protein 8.3 H Albumin 4.5 Globulin 3.8 Albumin/Globulin Ratio 1.2 Procalcitonin 0.05 Urine Color Yellow Urine Appearance Clear Urine pH 5.5 Ur Specific [place] 1.010 Urine Protein Negative Urine Glucose (UA) Negative Urine Ketones Negative Urine Occult Blood Negative Urine Nitrate Negative Urine Bilirubin Negative Urine Urobilinogen 0.2 Ur Leukocyte Esterase Negative Urine RBC None seen Urine WBC None seen Ur Squamous Epith Cells 0-1 /hpf Urine Bacteria None seen Ur Culture Indicated? Cult not indicated Vol Urine Centrifuged 10ml (spun) Nasal Screen MRSA (PCR) U Opiates 300ng/mL cut Ur Oxycodone Screen Urine Methadone Screen Ur Barbiturates Screen U Tricyclic Antidepress Ur Phencyclidine Scrn Ur Amphetamines Screen U Methamphetamines Scrn Ur MDMA Scrn (Ecstasy) U Benzodiazepines Scrn Urine Cocaine Screen U Marijuana (THC) Screen Urine Specific [place] Ur Creatinine 07/14/23 07/14/23 07/14/23 04:44 04:55 07:30 WBC RBC Hgb Hct MCV MCH MCHC RDW Plt Count Neut % (Auto) Lymph % (Auto) [place] % (Auto) Eos % (Auto) Baso % (Auto) Neut # (Auto) Lymph # (Auto) [place] # (Auto) Eos # (Auto) Baso # (Auto) PT INR Sample Site N ABG Sample Site Right radial ABG pH 7.43 ABG pCO2 26.2 L ABG pO2 103 H ABG HCO3 17 L ABG Total CO2 18 L ABG O2 Saturation 98 ABG Base Excess -7.0 L FiO2 30 Sodium Potassium Chloride Carbon Dioxide BUN Creatinine Estimated GFR BUN/Creatinine Ratio Glucose Lactate 0.9 Calcium Magnesium Total Bilirubin AST ALT Alkaline Phosphatase Total Creatine Kinase Troponin I Total Protein Albumin Globulin Albumin/Globulin Ratio Procalcitonin Urine Color Urine Appearance Urine pH Normal Ur Specific [place] Urine Protein Urine Glucose (UA) Urine Ketones Urine Occult Blood Urine Nitrate Urine Bilirubin Urine Urobilinogen Ur Leukocyte Esterase Urine RBC Urine WBC Ur Squamous Epith Cells Urine Bacteria Ur Culture Indicated? Vol Urine Centrifuged Nasal Screen MRSA (PCR) Detected H U Opiates 300ng/mL cut Negative Ur Oxycodone Screen Positive H Urine Methadone Screen Negative Ur Barbiturates Screen Negative U Tricyclic Antidepress Negative Ur Phencyclidine Scrn Negative Ur Amphetamines Screen Negative U Methamphetamines Scrn Negative Ur MDMA Scrn (Ecstasy) Negative U Benzodiazepines Scrn Negative Urine Cocaine Screen Negative U Marijuana (THC) Screen Negative Urine Specific [place] Normal Ur Creatinine Normal 07/14/23 08:22 WBC 12.3 H RBC 3.39 L Hgb 10.1 L Hct 30.0 L MCV 88.5 MCH 29.9 MCHC 33.7 RDW 14.4 Plt Count 321 Neut % (Auto) 79.3 H Lymph % (Auto) 15.2 L [place] % (Auto) 4.3 Eos % (Auto) 0.3 L Baso % (Auto) 0.9 Neut # (Auto) 9800 H Lymph # (Auto) 1900 [place] # (Auto) 500 Eos # (Auto) 0 Baso # (Auto) 100 PT INR Sample Site ABG Sample Site ABG pH ABG pCO2 ABG pO2 ABG HCO3 ABG Total CO2 ABG O2 Saturation ABG Base Excess FiO2 Sodium 142 Potassium 3.5 Chloride 117 H Carbon Dioxide 20 L BUN 21 H Creatinine 1.01 Estimated GFR 59 L BUN/Creatinine Ratio 20.8 Glucose 99 Lactate Calcium 8.8 Magnesium Total Bilirubin AST ALT Alkaline Phosphatase Total Creatine Kinase Troponin I Total Protein Albumin Globulin Albumin/Globulin Ratio Procalcitonin Urine Color Urine Appearance Urine pH Ur Specific [place] Urine Protein Urine Glucose (UA) Urine Ketones Urine Occult Blood Urine Nitrate Urine Bilirubin Urine Urobilinogen Ur Leukocyte Esterase Urine RBC Urine WBC Ur Squamous Epith Cells Urine Bacteria Ur Culture Indicated? Vol Urine Centrifuged Nasal Screen MRSA (PCR) U Opiates 300ng/mL cut Ur Oxycodone Screen Urine Methadone Screen Ur Barbiturates Screen U Tricyclic Antidepress Ur Phencyclidine Scrn Ur Amphetamines Screen U Methamphetamines Scrn Ur MDMA Scrn (Ecstasy) U Benzodiazepines Scrn Urine Cocaine Screen U Marijuana (THC) Screen Urine Specific [place] Ur Creatinine Assessment & Plan Assessment and plan (1) Manic bipolar I disorder: Status: Acute Assessment & Plan narrative: # Acute toxic vs metabolic encephalopathy in the setting of manic phase, Bipolar 1 Disorder - per may have taken too much baclofen and oxy, Utox positive for only oxy. obtunded in ED so intubated. - she is very unstable on current prn Ativan and hs scheduled Seroquel and is having back to back hospitalizations - she used to be on lithium and switch to current Tx happened not so long ago, as per psychiatric consultation on previous hospitalization - her record lists lithium toxicity, possible reason for therapy change - DD - metabolic encephalopathy from suspected underlying infection / sepsis. BCs pending. Given 1 dose of abx. # intubated for airway protection - patient required intubation due to AMS and obtunded state only responsive to sternal rub in ED - eICU consult to manage vent # Suspected Sepsis - IVFs, Levophed now off, BCs pending. - Rocephin 2 g given in the ED - continue broad spectrum abx for now # VELASQUEZ - IVFs GI prophylaxis - Protonix DVT prophylaxis - heparin Dispo: ICU
--- NOTE | 2023-07-14 19:44 | PM.ICURNDS ---
- Date Patient Seen: 07/14/23 Time Patient Seen: 19:44 :: This patient was seen via real time interactive two-way audiovisual telecommunication. Note: Most recent labs, imaging studies, current treatment plan reviewed with the bedside team. Patient remains on ventilator, currently on minimal settings. On Propofol gtt and Fentanyl gtt, comfortable on the vent. Hemodynamically stable, not requiring pressors. No acute issues. C/w current plan of care. Discussed w/ Bedside RN and charge nurse. Shravan Clinton MD eICU, Critical Care Medicine
[2023-07-14] MEDS: VANCOMYCIN 750 MG/150 ML PIGGYBACK 150 MG IV (22:15)
[2023-07-14] MEDS: propofoL 1,000 MG/100 ML VIAL 10.274 MG IV (22:15)
[2023-07-14] MEDS: fentaNYL 1,000 MCG in DEXTROSE 5% IN WATER 230 ML 25.913 MCG IV (23:49)
[2023-07-15] VITALS (77 sets, daily range): BP systolic 63–182; BP diastolic 39–96; PULSE 54–127; RESP 0–36; TEMP 36.1–37.6; O2SAT 30–100
[2023-07-15] MEDS: CHLORHEXIDINE GLUCONATE 15 ML CUP PO ×5 (00:06→23:18)
[2023-07-15 05:02] LABS: Add Manual Diff / Slide Review NO; Basophils Absolute Auto 100 /uL (0-100); Basophils Percent Auto 0.9 % (0-2); Eosinophils Absolute Auto 100 /uL (0-450); Eosinophils Percent Auto 0.6 % (2-4); Hematocrit 27.4 % (36-46); Hemoglobin 9.3 g/dL (12.0-16.0); Lymphocytes Absolute Auto 1500 /uL (1100-4500); Lymphocytes Percent Auto 12.7 % (25-40); Mean Corpuscular HGB Conc 33.8 % (30-36); Mean Corpuscular Hemoglobin 29.7 PG (26-34); Mean Corpuscular Volume 87.8 fL (80-100); Monocytes Absolute Auto 700 /uL (0-900); Monocytes Percent Auto 5.8 % (3-14); Neutrophils Absolute Auto 9600 /uL (1500-7000); Platelet Count 338 X10^3/uL (150-400); Red Blood Cell Count 3.12 X10^6/uL (4.0-5.2); Red Cell Distribution Width 14.4 % (11.6-14.8)
[2023-07-15 05:21] LABS: BUN Creatinine Ratio 19.8 (6-22); Blood Urea Nitrogen 18 mg/dL (7-17); Calcium 8.8 mg/dL (8.4-10.2); Carbon Dioxide 14 mmol/L (22-32); Chloride 120 mmol/L (98-107); Estimated Glomerular Filt Rate > 60 mL/min (>60); Glucose 109 mg/dL (80-110); HEMOLYSIS < 15 (0-50); Potassium 3.8 mmol/L (3.4-5.1); Sodium 142 mmol/L (137-145)
--- NOTE | 2023-07-15 05:22 | PM.PN.EICU ---
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 Per she was taking too much of her meds including baclofen and oxycodone for her foot pain. Initial workup shows leukocytosis, left shift, elevated LA, VELASQUEZ and no obvious source of infection, with clear CXR and UA. Covered with empiric Rocephin, given IVFs, BCs pending. Similar presentation few weeks ago. She was suspected on non-compliance with medications, apparently she was off Seroquel. Seen by psychiatry and discharged on previous regimen of prn Ativan and scheduled hs Seroquel. Supposed to follow with primary psychiatrist but I don't know if that ever happened. Current Medications Current Medications Medications: Home Medications amlodipine 10 mg tablet 10 mg PO BEDTIME 03/06/20 [History Confirmed 06/21/23] metoclopramide HCl 10 mg tablet (Reglan) 10 mg PO Q6H PRN nausea and vomiting #14 tabs 08/27/21 [Rx Confirmed 06/21/23] atorvastatin 20 mg tablet 20 mg PO BEDTIME 04/22/22 [History Confirmed 06/21/23] betamethasone dipropionate 0.05 % topical cream 0.05 applic topical BID eczema 04/22/22 [History Confirmed 06/21/23] oxycodone 5 mg tablet 5 mg PO TID PRN pain 04/22/22 [History Confirmed 06/21/23] ondansetron 4 mg disintegrating tablet 4 mg PO Q8H PRN nausea and vomiting #14 tabs 05/08/22 [Rx Confirmed 06/21/23] levothyroxine 75 mcg tablet (Synthroid) 75 mcg PO DAILY@0600 #30 tabs 05/13/22 [Rx Confirmed 06/21/23] Calcium 500 1 tab PO BEDTIME 06/13/23 [History Confirmed 06/21/23] lorazepam 1 mg tablet 0.5 mg PO 3XD 06/13/23 [History Confirmed 06/21/23] gabapentin 300 mg capsule 300 mg PO BID 06/21/23 [History Confirmed 06/21/23] quetiapine 300 mg tablet 300 mg PO BEDTIME #30 tabs 06/27/23 [Rx] Visit Medications (administered) Generic Name Dose Route Start Last Admin Trade Name Angel Luisq PRN Reason Stop Dose Admin Chlorhexidine Gluconate 15 ml 07/14/23 06:00 07/15/23 00:06 Chlorhexidine Gluconate 15 Ml Cup PO 15 ml Q6HR ANDRESSA Administration Heparin Sodium (Porcine) 5,000 unit 07/14/23 09:00 07/14/23 21:17 Heparin 5,000 Unit/Ml Vial SUBCUT 5,000 unit BID ANDRESSA Administration Propofol 1,000 mg in 100 mls @ 2.055 mls/hr 07/14/23 04:45 07/14/23 22:15 Propofol IV 25 mcg/kg/min TITRATE ANDRESSA 10.274 mls/hr Administration Protocol 5 MCG/KG/MIN NOREPINEPHRINE BITARTRATE/D5W 4 mg in 250 mls @ 25.685 mls/hr 07/14/23 04:40 07/14/23 07:23 Levophed IV Not Given TITRATE ANDRESSA Protocol 0.1 MCG/KG/MIN Cefepime HCl 2 gm/ Sodium 100 mls @ 200 mls/hr 07/14/23 09:15 07/14/23 21:47 Chloride IV Infused Q12H ANDRESSA Infusion Vancomycin HCl 750 mg in 150 mls @ 150 mls/hr 07/14/23 22:00 07/14/23 23:15 Vancomycin IV Infused Q12H ANDRESSA Infusion Fentanyl 1,000 mcg/ Dextrose 250 mls @ 12.093 mls/hr 07/14/23 13:45 07/14/23 23:49 IV 1.5 mcg/kg/hr TITRATE ANDRESSA 25.913 mls/hr Administration Protocol 0.7 MCG/KG/HR Pantoprazole Sodium 40 mg 07/14/23 09:00 07/14/23 08:33 Pantoprazole 40 Mg Vial IV 40 mg DAILY ANDRESSA Administration Objective Ventilator Parameters: Ventilator Settings FiO2 30 RT Vent Frequency 16 Ventilator Tidal Volume 490 Exhaled Vt/kg IBW 7.5 Positive End Expiratory 5 Pressure Ventilator Pressure Support 10 Inspiratory Phase Time 0.9 I:E Ratio 1:3.2 Patient Position Left side lying INTUBATED ON VENT SUPPORT AND AGITATED Labs 07/15/23 04:24 07/15/23 04:24 Labs: Laboratory Results - last 24 hr 07/14/23 07/14/23 07/15/23 07:30 08:22 04:24 WBC 12.3 H 12.0 H RBC 3.39 L 3.12 L Hgb 10.1 L 9.3 L Hct 30.0 L 27.4 L MCV 88.5 87.8 MCH 29.9 29.7 MCHC 33.7 33.8 RDW 14.4 14.4 Plt Count 321 338 Neut % (Auto) 79.3 H 80.0 H Lymph % (Auto) 15.2 L 12.7 L [place] % (Auto) 4.3 5.8 Eos % (Auto) 0.3 L 0.6 L Baso % (Auto) 0.9 0.9 Neut # (Auto) 9800 H 9600 H Lymph # (Auto) 1900 1500 [place] # (Auto) 500 700 Eos # (Auto) 0 100 Baso # (Auto) 100 100 Sodium 142 Potassium 3.5 Chloride 117 H Carbon Dioxide 20 L BUN 21 H Creatinine 1.01 Estimated GFR 59 L BUN/Creatinine Ratio 20.8 Glucose 99 Calcium 8.8 Nasal Screen MRSA (PCR) Detected H U Opiates 300ng/mL cut Negative Ur Oxycodone Screen Positive H Urine Methadone Screen Negative Ur Barbiturates Screen Negative U Tricyclic Antidepress Negative Ur Phencyclidine Scrn Negative Ur Amphetamines Screen Negative U Methamphetamines Scrn Negative Ur MDMA Scrn (Ecstasy) Negative U Benzodiazepines Scrn Negative Urine Cocaine Screen Negative U Marijuana (THC) Screen Negative Urine pH Normal Urine Specific [place] Normal Ur Creatinine Normal Exam Vital Signs (past 8 hours): - 07/14/23 21:30 07/14/23 21:31 07/14/23 21:31 Temperature 97.0 F L 97.0 F L Pulse Rate 78 82 Respiratory Rate 24 26 H Blood Pressure 147/67 H Pulse Oximetry 99 100 Oxygen Delivery Method 07/14/23 22:00 07/14/23 22:01 07/14/23 22:01 Temperature 97.3 F L 97.3 F L Pulse Rate 58 L 57 L Respiratory Rate 16 16 Blood Pressure 104/55 L Pulse Oximetry 100 100 Oxygen Delivery Method 07/14/23 22:30 07/14/23 22:30 07/14/23 23:00 Temperature 97.7 F Pulse Rate 52 L Respiratory Rate 16 Blood Pressure 90/51 L 103/56 L Pulse Oximetry 99 Oxygen Delivery Method 07/14/23 23:00 07/14/23 23:00 07/14/23 23:30 Temperature 97.7 F Pulse Rate 45 L Respiratory Rate 16 Blood Pressure 109/59 L Pulse Oximetry 99 Oxygen Delivery Method Mechanical Ventilation 07/14/23 23:30 07/15/23 00:00 07/15/23 00:01 Temperature 97.5 F L 97.2 F L Pulse Rate 41 L 124 H Respiratory Rate 16 28 H Blood Pressure 178/82 H Pulse Oximetry 100 98 Oxygen Delivery Method 07/15/23 00:01 07/15/23 00:30 07/15/23 00:30 Temperature 97.2 F L 97.0 F L Pulse Rate 121 H 118 H Respiratory Rate 29 H 34 H Blood Pressure 176/84 H Pulse Oximetry 98 99 Oxygen Delivery Method 07/15/23 01:00 07/15/23 01:00 07/15/23 01:30 Temperature 97.2 F L Pulse Rate 111 H Respiratory Rate 32 H Blood Pressure 166/76 H 161/75 H Pulse Oximetry 98 Oxygen Delivery Method 07/15/23 01:30 07/15/23 02:00 07/15/23 02:00 Temperature 97.5 F L 97.9 F Pulse Rate 102 H 101 H Respiratory Rate 32 H 27 H Blood Pressure 168/74 H Pulse Oximetry 100 99 Oxygen Delivery Method 07/15/23 02:30 07/15/23 02:30 07/15/23 03:00 Temperature 97.9 F 98.4 F Pulse Rate 116 H 68 Respiratory Rate 36 H 16 Blood Pressure 176/94 H Pulse Oximetry 100 100 Oxygen Delivery Method 07/15/23 03:30 07/15/23 04:00 07/15/23 05:00 Temperature 98.6 F 98.8 F 98.4 F Pulse Rate 62 58 L 54 L Respiratory Rate 16 16 16 Blood Pressure Pulse Oximetry 100 100 100 Oxygen Delivery Method 07/15/23 05:04 07/15/23 05:04 Temperature 98.4 F Pulse Rate 54 L Respiratory Rate 16 Blood Pressure 83/51 L Pulse Oximetry 100 Oxygen Delivery Method Fraction of Inspired Oxygen 30 Oxygen Delivery Method Mechanical Ventilation Const Other: General Appearance: No acute distress. HEENT: NCAT. . Cardiac: Normal sinus rhythm. Lungs: Abdomen: Soft, non-distended, non-tender. Neurological: Grossly intact motor examination. Skin: No rash present. Psychiatric: INTUBATED ON VENT SUPPORT SEDATED Quality TeleICU VTE Deep Vein Thrombosis/Pulmonary Embolism Present on Admission: No Stress Ulcer Stress ulcer prophylaxis: yes Assessment & Plan Assessment & Plan narrative: Assessment and plan (1) Manic bipolar I disorder: Status: Acute (2) Acute metabolic encephalopathy: Status: Acute (3) VELASQUEZ (acute kidney injury): Status: Acute (4) Acute respiratory failure: Status: Acute (5) Encephalopathy acute: Status: Acute (6) Hyperchloremic acidosis: Status: Acute Plan The patient continues to be extremely agitated with tachypnea tachycardia on propofol 30 mcg and fentanyl 2 mcs. Patient is on cefepime and vancomycin prophylactically which will be continued for a total of 3 days and discontinued on 07/17/2023 will start Jevity at 10 cc/h and advance as tolerated as per protocol patient is not on pressors. Patient is on heparin and SCDs. Patient's has extremely poor mental status at baseline with multiple hospitalizations and drug overdosage with oxycodone. Anticipate difficult weaning process secondary to poor mental status overall patient is currently full code. Monitor BUN/creatinine no evidence of hypoxemia aspiration cardiac arrhythmias ileus or infection at this time Critical Care time spent evaluating the patient, interpreting studies, discussing the case with consultants or admitting teams, retrieving data and reviewing charts and vent management ?was more than 40 minutes . The patient/family consented to receive this telemedicine service, which I performed via live two-way audiovisual equipment. The patient is at [facility], and I am physically in [place], [place] .RN assisted me in the visit at bedside. Time Spent With Patient Time with patient: 30 to 49 minutes with 50% spent counseling/coordinating care
[2023-07-15] MEDS: propofoL 1,000 MG/100 ML VIAL 12.329 MG IV (05:57)
[2023-07-15] MEDS: fentaNYL 1,000 MCG in DEXTROSE 5% IN WATER 230 ML 34.55 MCG IV ×3 (06:39→21:49)
--- NOTE | 2023-07-15 06:55 | PC.NURSE ---
casino shift manager RN note Pt intubated and sedated, opens eyes spontaneously but does not make eye contact or follow commands, reaches hands towards ETT and move legs in bed, bilat soft wrist restraints on to maintain therapy, elevated HR and BP when awake and aggitated, SB and hypotensive when relaxed, #7.5 ETT/23 at lip, vent AC rate 16/Tv 490/+5/30% FIO2, lungs clear, suctioned for scant clear oral secretions, hypo BS, r/c draining clear yellow urine, skin warm and dry, scattered scabs to back, healing incision to R great toe from prior surgery, RIJ and x2 periph IV sites patent, meds and labs as ordered
--- NOTE | 2023-07-15 08:05 | P.PN_ITS ---
Subjective Subjective Interval history: Narrative not obtainable, she remains intubated. ICU Dr. Angel at 8:00 a.m. indicate that the patient is too tachypneic on her breathing trial for extubation. She is also agitated. Her sedation will be increased for today. She will continue on antibiotics through today and likely stopped tomorrow morning. Exam Vital Signs (past 8 hours): - 07/15/23 00:30 07/15/23 00:30 07/15/23 01:00 Temperature 97.0 F L Pulse Rate 118 H Respiratory Rate 34 H Blood Pressure 176/84 H 166/76 H Pulse Oximetry 99 Oxygen Delivery Method Fraction of Inspired Oxygen 07/15/23 01:00 07/15/23 01:30 07/15/23 01:30 Temperature 97.2 F L 97.5 F L Pulse Rate 111 H 102 H Respiratory Rate 32 H 32 H Blood Pressure 161/75 H Pulse Oximetry 98 100 Oxygen Delivery Method Fraction of Inspired Oxygen 07/15/23 02:00 07/15/23 02:00 07/15/23 02:30 Temperature 97.9 F Pulse Rate 101 H Respiratory Rate 27 H Blood Pressure 168/74 H 176/94 H Pulse Oximetry 99 Oxygen Delivery Method Fraction of Inspired Oxygen 07/15/23 02:30 07/15/23 03:00 07/15/23 03:00 Temperature 97.9 F 98.4 F Pulse Rate 116 H 68 Respiratory Rate 36 H 16 Blood Pressure Pulse Oximetry 100 100 Oxygen Delivery Method Mechanical Ventilation Fraction of Inspired Oxygen 07/15/23 03:30 07/15/23 04:00 07/15/23 05:00 Temperature 98.6 F 98.8 F 98.4 F Pulse Rate 62 58 L 54 L Respiratory Rate 16 16 16 Blood Pressure Pulse Oximetry 100 100 100 Oxygen Delivery Method Fraction of Inspired Oxygen 07/15/23 05:04 07/15/23 05:04 07/15/23 06:00 Temperature 98.4 F Pulse Rate 54 L Respiratory Rate 16 Blood Pressure 83/51 L Pulse Oximetry 100 Oxygen Delivery Method Fraction of Inspired Oxygen 30 07/15/23 06:00 07/15/23 06:00 Temperature 98.2 F Pulse Rate 101 H Respiratory Rate 29 H Blood Pressure 164/76 H Pulse Oximetry 98 Oxygen Delivery Method Fraction of Inspired Oxygen Fraction of Inspired Oxygen 30 Oxygen Delivery Method Mechanical Ventilation Narrative Exam Narrative: Intubated. Sedated. Eyes open, not tracking. Lungs clear Heart regular, no murmur Abdomen non-distended. No leg edema. Skin is free of rash or lesions. Objective Labs 07/15/23 04:24 07/15/23 04:24 Labs: Laboratory Results - last 24 hr 07/14/23 07/14/23 07/15/23 07:30 08:22 04:24 WBC 12.3 H 12.0 H RBC 3.39 L 3.12 L Hgb 10.1 L 9.3 L Hct 30.0 L 27.4 L MCV 88.5 87.8 MCH 29.9 29.7 MCHC 33.7 33.8 RDW 14.4 14.4 Plt Count 321 338 Neut % (Auto) 79.3 H 80.0 H Lymph % (Auto) 15.2 L 12.7 L [place] % (Auto) 4.3 5.8 Eos % (Auto) 0.3 L 0.6 L Baso % (Auto) 0.9 0.9 Neut # (Auto) 9800 H 9600 H Lymph # (Auto) 1900 1500 [place] # (Auto) 500 700 Eos # (Auto) 0 100 Baso # (Auto) 100 100 Sodium 142 142 Potassium 3.5 3.8 Chloride 117 H 120 H Carbon Dioxide 20 L 14 L BUN 21 H 18 H Creatinine 1.01 0.91 Estimated GFR 59 L > 60 BUN/Creatinine Ratio 20.8 19.8 Glucose 99 109 Calcium 8.8 8.8 Nasal Screen MRSA (PCR) Detected H U Opiates 300ng/mL cut Negative Ur Oxycodone Screen Positive H Urine Methadone Screen Negative Ur Barbiturates Screen Negative U Tricyclic Antidepress Negative Ur Phencyclidine Scrn Negative Ur Amphetamines Screen Negative U Methamphetamines Scrn Negative Ur MDMA Scrn (Ecstasy) Negative U Benzodiazepines Scrn Negative Urine Cocaine Screen Negative U Marijuana (THC) Screen Negative Urine pH Normal Urine Specific [place] Normal Ur Creatinine Normal PFSH Medical History Eczema Hypothyroidism (acquired) Bipolar disorder Hypertension Surgical History Hx of cholecystectomy Family History Mother Alcohol abuse Father CVA (cerebral vascular accident) Social History household members: spouse Smoking Status: Never smoker alcohol intake: former Assessment & Plan Assessment & Plan narrative: 73 y/o with PMH of Bipolar Disorder presented confused, agitated, disoriented and quickly intubated for airway protection. Per she was taking too much of her meds including baclofen and oxycodone for her foot pain. Initial workup shows leukocytosis, left shift, elevated LA, VELASQUEZ and no obvious source of infection, with clear CXR and UA. Covered with empiric Rocephin, given IVFs, BCs pending. Similar presentation few weeks ago. She was suspected on non-compliance with medications, apparently she was off Seroquel. Seen by psychiatry and discharged on previous regimen of prn Ativan and scheduled hs Seroquel. Supposed to follow with primary psychiatrist but I don't know if that ever happened. 1. Acute toxic verses metabolic encephalopathy in the setting of manic phase, Bipolar 1 Disorder, present on admission and active. - per may have taken too much baclofen and oxy, Utox positive for only oxy. obtunded in ED so intubated. - she is very unstable on current prn Ativan and hs scheduled Seroquel and is having back to back hospitalizations - she used to be on lithium and switch to current Tx happened not so long ago, as per psychiatric consultation on previous hospitalization - her record lists lithium toxicity, possible reason for therapy change - DD - metabolic encephalopathy from suspected underlying infection / sepsis. BCs pending. Given 1 dose of abx. 2. Intubated for airway protection, present on admission and active. - patient required intubation due to AMS and obtunded state only responsive to sternal rub in ED - eICU consult to manage vent -she failed SBT today and will remain on the ventilator for an additional day. Her sedation will be adjusted to decrease agitation. 3. Suspected Sepsis, present on admission and active. - IVFs, Levophed now off, BCs pending. - Rocephin 2 g given in the ED - continue broad spectrum abx - cultures remained negative, likely we will stop antibiotics tomorrow unless there is evidence of clear infection. 4. VELASQUEZ, present on admission and improved. - IVFs GI prophylaxis - Protonix DVT prophylaxis - heparin Dispo: ICU Time Spent With Patient Time with patient: 30 to 49 minutes with 50% spent counseling/coordinating care Quality VTE Deep Vein Thrombosis/Pulmonary Embolism Present on Admission: No
[2023-07-15] MEDS: HEPARIN 5,000 UNIT/ML VIAL 5000 UNIT SUBCUT ×2 (08:21→20:32)
[2023-07-15] MEDS: PANTOPRAZOLE 40 MG VIAL IV (08:21)
[2023-07-15] MEDS: CEFEPIME 2 GM in SODIUM CHLORIDE 0.9% 100 ML IV ×2 (08:22→20:35)
--- NOTE | 2023-07-15 08:52 | PC.NURSE ---
Addendum entered by Chhaya Chaves R.N. 07/15/23 12:16: Pt continues to appear uncomfortable, grimacing, clenched fists, tachycardic. Provider notified. New orders received. Will continue to monitor. Original Note: Day shift: Pt tachypneic, eyes open, unable to track, pupils reactive and brisk, does not flinch when eyes are approached. eICU provider virtually present, notified. SBT held until tomorrow due to restlessness, agitation, tachycardia, and tachypnea. Pt fists clenched tightly, wash cloth placed bilaterally to protect palms. Tube feeds started. Care ongoing. Will continue to monitor.
[2023-07-15] MEDS: VANCOMYCIN 750 MG/150 ML PIGGYBACK 150 MG IV ×2 (10:30→23:18)
--- NOTE | 2023-07-15 11:13 | CM.DPC ---
Addendum entered by CRUZ Montgomery 07/15/23 15:36: ADD: SW met bedside with spouse and he confirms he received the DPOA pwk yesterday and reviewing it and will work on it once pt extubated and A&O. SW inquired about pt's medications and he confirms that meds are not locked up as they do not have a locking device but that he hides the pill bottles for safety as pt is forgetful and cannot remember what she has taken or not taken. SW strongly encouraged a locking type advice for the med bottles. SW inquired about a weekly pill dispenser and spouse states they have used one before with success for a while but then she does not follow through after a while. Spouse willing to try other med management options. Spouse still working to pay the rent and states they have been on the list for Section 8 housing for years but cannot get out of their lease when an opening comes up. Son Owen a year ago and thier other son Joe lives in [place], [place] and another son in another state. SW inquired if they have applied for Medicaid and spouse states he feels they likely would qualify but he is currently feeling overwhelmed and unsure if he could complete this pwk on his own. SW provided Medicaid application and spouse will review and may need some assist to complete but pt would benefit from BOB CG either while spouse is working or for spouse to get paid for the CG he provides to patient. BF Original Note: DCP Cont: Per MD and MDR, pt failed breathing trial and remains intubated and sedated in soft wrist restraints today and likely will attempt breathing trial again tomorrow Tues. Pt not yet appropriate for participation in mental health assessment/discharge planning today. Plan: SW to follow closely for eventual extubation and ongoing assessment to determine outpt MH vs Inpt MH tx and for assist with pt/spouse to complete DPOA pwk once pt alert and oriented. CRUZ Montgomery
--- NOTE | 2023-07-15 12:17 | DIET.CONS ---
Dietary Consultation Note Admission Date: 07/14/2023 04:56 Assessment: 73 y F presented confused, agitated, disoriented and quickly intubated for airway protection. Nutrition screened for tube feed diet order. Pt started on Jevity 1.2 this morning at 10 ml/hr. No plans for extubation today. TF order placed and OPERATIONS MANAGEMENT TRAINEE notified pt can be advanced to 20 ml/hr. Ht: 170.18 cm Wt: 66 kg BMI: 23.8 UBW: Last BM: () MNA: Dillon Score: 15 Diet: 07/14/23 Dinner Tube Feeding Diet Diet Modifications: TF Supplement type: Jevity 1.2 ashley TF mode of delivery: Continuous Starting flow rate mL/hr: 10 Flow rate goal mL/hr: 40 Titration Schedule to reach Goal Rate: increase 10 q 8 hrs Max total daily volume in mL: 960 Free fluid: 250 Free Water Frequency: Q4H 07/15/23 Dinner Tube Feeding Diet Diet Modifications: TF Supplement type: Jevity 1.2 ashley TF mode of delivery: Continuous Starting flow rate mL/hr: 10 Flow rate goal mL/hr: 50 Titration Schedule to reach Goal Rate: Increase by 10 ml q 6 hours as tolerated Max total daily volume in mL: 2,000 Free fluid: 165 Free Water Frequency: Q4H Comment: please review Labs: RBC 3.12 X10^6/uL (4.0-5.2) L 07/15/23 04:24 Hgb 9.3 g/dL (12.0-16.0) L 07/15/23 04:24 Hct 27.4 % (36-46) L 07/15/23 04:24 Creatinine 0.91 mg/dL (0.52-1.04) 07/15/23 04:24 Lactate 0.9 mmol/L (0.7-2.1) 07/14/23 04:55 Nutrition Diagnosis: Inadequate oral intake r/t to mechanical ventilation as evidenced by NPO status Interventions: Tube Feeding Diet Diet Modifications: TF Supplement type: Jevity 1.2 ashley TF mode of delivery: Continuous Starting flow rate mL/hr: 10 Flow rate goal mL/hr: 50 Titration Schedule to reach Goal Rate: Increase by 10 ml q 6 hours as tolerated Max total daily volume in mL: 2,000 Free fluid: 165 Free Water Frequency: Q4H EER: 2806-1444 kcals/day (26-28 kcals/kg) 65-75 grams protein/day (1.0 gram/kg) Monitoring/Evaluations: TF rate, EN tolerance Electronically Signed by: Juliana Hong 07/15/23 12:17 Clinical Dietitian [address] [address]
[2023-07-15] MEDS: propofoL 1,000 MG/100 ML VIAL 16.438 MG IV (12:27)
[2023-07-15] MEDS: LORazepam 2 MG/ML INJ 1 MG IV (12:29)
[2023-07-15] MEDS: SODIUM CHLORIDE 0.9% 500 ML 1000 ML IV ×2 (13:27→15:02)
[2023-07-15] MEDS: MINERAL OIL/PETROL OPHTH OINT 3.5 GM 1 APPLIC EYE-BOTH ×2 (16:56→20:32)
[2023-07-15] MEDS: MORPHINE 2 MG/ML INJ 1 MG IV ×2 (17:48→23:05)
--- NOTE | 2023-07-15 19:02 | PM.ICURNDS ---
- :: This patient was seen via real time interactive two-way audiovisual telecommunication. Note: Most recent labs, imaging studies, current treatment plan reviewed with the bedside team. Patient remains on ventilator, currently on minimal settings. Mental status poor during SAT per nursing staff. Remains on low dose Propofol gtt and Fentanyl gtt, comfortable on the vent. Had an episode of transient hypotension earlier, responded to 500cc IVF bolusn. Now H\hemodynamically stable, not requiring pressors. No acute issues. C/w current plan of care. Discussed w/ Bedside RN and charge nurse. Shravan Clinton MD eICU, Critical Care Medicine
[2023-07-15] MEDS: VANCOMYCIN TROUGH 1 REQUEST MISC (21:49)
[2023-07-15] MEDS: propofoL 1,000 MG/100 ML VIAL 10.274 MG IV (21:50)
[2023-07-15 23:12] LABS: Vancomycin Trough 19.4 ug/mL (10-20)
[2023-07-16] VITALS (86 sets, daily range): BP systolic 66–196; BP diastolic 41–100; PULSE 61–131; RESP 1–32; TEMP 37.1–38.4; O2SAT 30–100
[2023-07-16] MEDS: LORazepam 2 MG/ML INJ 1 MG IV (00:37)
[2023-07-16] MEDS: VANCOMYCIN PEAK 1 REQUEST MISC (01:25)
[2023-07-16 02:15] LABS: Vancomycin Peak 38.4 ug/mL (20-40)
[2023-07-16] MEDS: SODIUM CHLORIDE 0.9% 500 ML 1000 ML IV (02:30)
[2023-07-16] MEDS: CHLORHEXIDINE GLUCONATE 15 ML CUP PO ×3 (05:32→18:10)
[2023-07-16] MEDS: propofoL 1,000 MG/100 ML VIAL 10.274 MG IV (05:33)
[2023-07-16] MEDS: fentaNYL 1,000 MCG in DEXTROSE 5% IN WATER 230 ML 34.55 MCG IV (05:34)
[2023-07-16 05:49] LABS: Add Manual Diff / Slide Review NO; Basophils Absolute Auto 100 /uL (0-100); Basophils Percent Auto 0.7 % (0-2); Eosinophils Absolute Auto 200 /uL (0-450); Eosinophils Percent Auto 1.6 % (2-4); Hematocrit 33.8 % (36-46); Hemoglobin 11.3 g/dL (12.0-16.0); Lymphocytes Absolute Auto 2900 /uL (1100-4500); Lymphocytes Percent Auto 18.8 % (25-40); Mean Corpuscular HGB Conc 33.4 % (30-36); Mean Corpuscular Volume 86.9 fL (80-100); Monocytes Absolute Auto 1100 /uL (0-900); Monocytes Percent Auto 7.4 % (3-14); Neutrophils Absolute Auto 11100 /uL (1500-7000); Neutrophils Percent Auto 71.5 % (50-75); Platelet Count 393 X10^3/uL (150-400); Red Blood Cell Count 3.89 X10^6/uL (4.0-5.2); Red Cell Distribution Width 14.5 % (11.6-14.8); White Blood Cell Count 15.5 X10^3/uL (4.5-11.0)
[2023-07-16 06:12] LABS: BUN Creatinine Ratio 17.7 (6-22); Blood Urea Nitrogen 14 mg/dL (7-17); Carbon Dioxide 15 mmol/L (22-32); Chloride 116 mmol/L (98-107); Estimated Glomerular Filt Rate > 60 mL/min (>60); Glucose 115 mg/dL (80-110); HEMOLYSIS < 15 (0-50); Potassium 3.7 mmol/L (3.4-5.1); Sodium 141 mmol/L (137-145)
[2023-07-16] MEDS: CEFEPIME 2 GM in SODIUM CHLORIDE 0.9% 100 ML IV ×2 (08:08→21:42)
[2023-07-16] MEDS: PANTOPRAZOLE 40 MG VIAL IV (08:14)
[2023-07-16] MEDS: MINERAL OIL/PETROL OPHTH OINT 3.5 GM 1 APPLIC EYE-BOTH ×2 (08:15→21:42)
[2023-07-16] MEDS: HEPARIN 5,000 UNIT/ML VIAL 5000 UNIT SUBCUT ×2 (08:15→21:42)
[2023-07-16] MEDS: VANCOMYCIN 750 MG/150 ML PIGGYBACK 150 MG IV (08:56)
--- NOTE | 2023-07-16 09:09 | P.PN_ITS ---
Subjective Subjective Interval history: Intubated, narrative not obtainable. Exam Vital Signs (past 8 hours): - 07/16/23 01:30 07/16/23 01:30 07/16/23 02:00 Temperature 100.0 F H Pulse Rate 75 Respiratory Rate 16 Blood Pressure 70/46 L 71/47 L Pulse Oximetry 99 Oxygen Delivery Method 07/16/23 02:00 07/16/23 02:30 07/16/23 02:30 Temperature 99.9 F H 99.5 F Pulse Rate 66 67 Respiratory Rate 16 16 Blood Pressure 71/47 L Pulse Oximetry 100 100 Oxygen Delivery Method 07/16/23 03:00 07/16/23 03:00 07/16/23 03:00 Temperature 99.3 F Pulse Rate 62 Respiratory Rate 16 Blood Pressure 90/50 L Pulse Oximetry 100 Oxygen Delivery Method Mechanical Ventilation 07/16/23 03:30 07/16/23 03:30 07/16/23 04:00 Temperature 98.8 F 98.8 F Pulse Rate 102 H 105 H Respiratory Rate 16 17 Blood Pressure 166/87 H Pulse Oximetry 100 100 Oxygen Delivery Method 07/16/23 04:00 07/16/23 04:30 07/16/23 04:30 Temperature 98.8 F Pulse Rate 103 H Respiratory Rate 16 Blood Pressure 167/82 H 158/83 H Pulse Oximetry 99 Oxygen Delivery Method 07/16/23 05:00 07/16/23 05:00 07/16/23 05:30 Temperature 99.0 F Pulse Rate 106 H Respiratory Rate 17 Blood Pressure 175/76 H 176/81 H Pulse Oximetry 100 Oxygen Delivery Method 07/16/23 05:30 07/16/23 06:00 07/16/23 06:00 Temperature 99.1 F 99.3 F Pulse Rate 101 H 103 H Respiratory Rate 16 16 Blood Pressure 176/80 H Pulse Oximetry 100 100 Oxygen Delivery Method 07/16/23 06:30 07/16/23 06:30 07/16/23 07:00 Temperature 99.5 F 99.7 F H Pulse Rate 94 H 87 Respiratory Rate 16 16 Blood Pressure 159/74 H Pulse Oximetry 100 100 Oxygen Delivery Method 07/16/23 07:00 07/16/23 07:30 07/16/23 07:30 Temperature 99.7 F H Pulse Rate 92 H Respiratory Rate 16 Blood Pressure 151/72 H 170/77 H Pulse Oximetry 100 Oxygen Delivery Method 07/16/23 08:00 07/16/23 08:00 07/16/23 08:30 Temperature 99.7 F H 99.7 F H Pulse Rate 85 121 H Respiratory Rate 16 20 Blood Pressure 127/69 Pulse Oximetry 100 100 Oxygen Delivery Method 07/16/23 08:30 Temperature Pulse Rate Respiratory Rate Blood Pressure 194/100 H Pulse Oximetry Oxygen Delivery Method Fraction of Inspired Oxygen 30 Oxygen Delivery Method Mechanical Ventilation Narrative Exam Narrative: Intubated Lungs clear Heart regular Abdomen soft No leg edema No skin rash Objective Labs 07/16/23 05:40 07/16/23 05:40 Labs: Laboratory Results - last 24 hr 07/15/23 07/16/23 07/16/23 21:44 01:25 05:40 WBC 15.5 H RBC 3.89 L Hgb 11.3 L Hct 33.8 L MCV 86.9 MCH 29.0 MCHC 33.4 RDW 14.5 Plt Count 393 Neut % (Auto) 71.5 Lymph % (Auto) 18.8 L [place] % (Auto) 7.4 Eos % (Auto) 1.6 L Baso % (Auto) 0.7 Neut # (Auto) 04248 H Lymph # (Auto) 2900 [place] # (Auto) 1100 H Eos # (Auto) 200 Baso # (Auto) 100 Sodium 141 Potassium 3.7 Chloride 116 H Carbon Dioxide 15 L BUN 14 Creatinine 0.79 Estimated GFR > 60 BUN/Creatinine Ratio 17.7 Glucose 115 H Calcium 9.0 Vancomycin Peak 38.4 Vancomycin Trough 19.4 PFSH Medical History Eczema Hypothyroidism (acquired) Bipolar disorder Hypertension Surgical History Hx of cholecystectomy Family History Mother Alcohol abuse Father CVA (cerebral vascular accident) Social History household members: spouse Smoking Status: Never smoker alcohol intake: former Assessment & Plan Assessment & Plan narrative: 1. Acute toxic encephalopathy in the setting of manic phase, Bipolar 1 Disorder, present on admission and active. - per may have taken too much baclofen and oxy, Utox positive for only oxy. obtunded in ED so intubated. 2. Intubated for airway protection, present on admission and active. - patient required intubation due to AMS and obtunded state only responsive to sternal rub in ED - eICU consult to manage vent -Sedation vacation and SBT this AM. 3. Possible Sepsis, present on admission and active. - IVFs, Levophed now off, BCs pending. - Rocephin 2 g given in the ED - continue broad spectrum abx - cultures remained negative, likely we will stop antibiotics tomorrow unless there is evidence of clear infection. 4. VELASQUEZ, present on admission and resolved - IVFs Nutrition: enteral tube tubes. GI prophylaxis - Protonix DVT prophylaxis - heparin Quality VTE Deep Vein Thrombosis/Pulmonary Embolism Present on Admission: No
--- NOTE | 2023-07-16 09:51 | PM.PN.EICU ---
Subjective Subjective IF CAMERA ACTIVATED, patient seen via real-time interactive audiovisual communication: Camera activated Consent obtained for tele-kiln car unloader care: Yes Patient Location: ICU Provider location (State): [place] Other participants/roles: Dr. Whiteside Current Medications Current Medications Medications: Home Medications amlodipine 10 mg tablet 10 mg PO BEDTIME 03/06/20 [History Confirmed 07/15/23] metoclopramide HCl 10 mg tablet (Reglan) 10 mg PO Q6H PRN nausea and vomiting #14 tabs 08/27/21 [Rx Confirmed 07/15/23] atorvastatin 20 mg tablet 20 mg PO BEDTIME 04/22/22 [History Confirmed 07/15/23] betamethasone dipropionate 0.05 % topical cream 0.05 applic topical BID eczema 04/22/22 [History Confirmed 07/15/23] oxycodone 5 mg tablet 5 mg PO Q6HR 04/22/22 [History Confirmed 07/15/23] levothyroxine 75 mcg tablet (Synthroid) 75 mcg PO DAILY@0600 #30 tabs 05/13/22 [Rx Confirmed 07/15/23] Calcium 500 1 tab PO BEDTIME 06/13/23 [History Confirmed 07/15/23] quetiapine 300 mg tablet 300 mg PO BEDTIME #30 tabs 06/27/23 [Rx Confirmed 07/15/23] Visit Medications (administered) Generic Name Dose Route Start Last Admin Trade Name Freq PRN Reason Stop Dose Admin Artificial Tears 1 applic 07/15/23 16:30 07/16/23 08:15 Mineral Oil/Petrol Ophth Oint 3.5 Gm EYE-BOTH 1 applic BID ANDRESSA Administration Chlorhexidine Gluconate 15 ml 07/14/23 06:00 07/16/23 05:32 Chlorhexidine Gluconate 15 Ml Cup PO 15 ml Q6HR ANDRESSA Administration Heparin Sodium (Porcine) 5,000 unit 07/14/23 09:00 07/16/23 08:15 Heparin 5,000 Unit/Ml Vial SUBCUT 5,000 unit BID ANDRESSA Administration Propofol 1,000 mg in 100 mls @ 2.055 mls/hr 07/14/23 04:45 07/16/23 08:22 Propofol IV 0 mcg/kg/min TITRATE ANDRESSA 0 mls/hr Titration Protocol 5 MCG/KG/MIN NOREPINEPHRINE BITARTRATE/D5W 4 mg in 250 mls @ 25.685 mls/hr 07/14/23 04:40 07/14/23 07:23 Levophed IV Not Given TITRATE ANDRESSA Protocol 0.1 MCG/KG/MIN Cefepime HCl 2 gm/ Sodium 100 mls @ 200 mls/hr 07/14/23 09:15 07/16/23 09:49 Chloride IV Infused Q12H ANDRESSA Infusion Vancomycin HCl 750 mg in 150 mls @ 150 mls/hr 07/14/23 22:00 07/16/23 09:49 Vancomycin IV Infused Q12H ANDRESSA Infusion Fentanyl 1,000 mcg/ Dextrose 250 mls @ 12.093 mls/hr 07/14/23 13:45 07/16/23 08:22 IV 0 mcg/kg/hr TITRATE ANDRESSA 0 mls/hr Titration Protocol 0.7 MCG/KG/HR Sodium Chloride 500 mls @ 1,000 mls/hr 07/15/23 13:11 07/16/23 03:00 Normal Saline 0.9% IV Infused BOLUS PRN Infusion SBP<100 Morphine Sulfate 1 mg 07/15/23 12:14 07/15/23 23:05 Morphine 2 Mg/Ml Inj IV 1 mg Q3HR PRN Administration Pain, Moderate (4-6) Pantoprazole Sodium 40 mg 07/14/23 09:00 07/16/23 08:14 Pantoprazole 40 Mg Vial IV 40 mg DAILY ANDRESSA Administration Objective Ventilator Parameters: Ventilator Settings FiO2 30 RT Vent Frequency 16 Ventilator Tidal Volume 490 Exhaled Vt/kg IBW 6.5 Positive End Expiratory 5 Pressure Ventilator Pressure Support 10 Inspiratory Phase Time 0.9 I:E Ratio 1:3.2 Patient Position HOB >= 30 degrees Labs 07/16/23 05:40 07/16/23 05:40 Labs: Laboratory Results - last 24 hr 07/15/23 07/16/23 07/16/23 21:44 01:25 05:40 WBC 15.5 H RBC 3.89 L Hgb 11.3 L Hct 33.8 L MCV 86.9 MCH 29.0 MCHC 33.4 RDW 14.5 Plt Count 393 Neut % (Auto) 71.5 Lymph % (Auto) 18.8 L [place] % (Auto) 7.4 Eos % (Auto) 1.6 L Baso % (Auto) 0.7 Neut # (Auto) 36266 H Lymph # (Auto) 2900 [place] # (Auto) 1100 H Eos # (Auto) 200 Baso # (Auto) 100 Sodium 141 Potassium 3.7 Chloride 116 H Carbon Dioxide 15 L BUN 14 Creatinine 0.79 Estimated GFR > 60 BUN/Creatinine Ratio 17.7 Glucose 115 H Calcium 9.0 Vancomycin Peak 38.4 Vancomycin Trough 19.4 Exam Vital Signs (past 8 hours): - 07/16/23 02:00 07/16/23 02:00 07/16/23 02:30 Temperature 99.9 F H 99.5 F Pulse Rate 66 67 Respiratory Rate 16 16 Blood Pressure 71/47 L Pulse Oximetry 100 100 Oxygen Delivery Method 07/16/23 02:30 07/16/23 03:00 07/16/23 03:00 Temperature 99.3 F Pulse Rate 62 Respiratory Rate 16 Blood Pressure 71/47 L 90/50 L Pulse Oximetry 100 Oxygen Delivery Method 07/16/23 03:00 07/16/23 03:30 07/16/23 03:30 Temperature 98.8 F Pulse Rate 102 H Respiratory Rate 16 Blood Pressure 166/87 H Pulse Oximetry 100 Oxygen Delivery Method Mechanical Ventilation 07/16/23 04:00 07/16/23 04:00 07/16/23 04:30 Temperature 98.8 F 98.8 F Pulse Rate 105 H 103 H Respiratory Rate 17 16 Blood Pressure 167/82 H Pulse Oximetry 100 99 Oxygen Delivery Method 07/16/23 04:30 07/16/23 05:00 07/16/23 05:00 Temperature 99.0 F Pulse Rate 106 H Respiratory Rate 17 Blood Pressure 158/83 H 175/76 H Pulse Oximetry 100 Oxygen Delivery Method 07/16/23 05:30 07/16/23 05:30 07/16/23 06:00 Temperature 99.1 F Pulse Rate 101 H Respiratory Rate 16 Blood Pressure 176/81 H 176/80 H Pulse Oximetry 100 Oxygen Delivery Method 07/16/23 06:00 07/16/23 06:30 07/16/23 06:30 Temperature 99.3 F 99.5 F Pulse Rate 103 H 94 H Respiratory Rate 16 16 Blood Pressure 159/74 H Pulse Oximetry 100 100 Oxygen Delivery Method 07/16/23 07:00 07/16/23 07:00 07/16/23 07:30 Temperature 99.7 F H 99.7 F H Pulse Rate 87 92 H Respiratory Rate 16 16 Blood Pressure 151/72 H Pulse Oximetry 100 100 Oxygen Delivery Method 07/16/23 07:30 07/16/23 08:00 07/16/23 08:00 Temperature 99.7 F H Pulse Rate 85 Respiratory Rate 16 Blood Pressure 170/77 H 127/69 Pulse Oximetry 100 Oxygen Delivery Method 07/16/23 08:30 07/16/23 08:30 07/16/23 09:00 Temperature 99.7 F H 99.7 F H Pulse Rate 121 H 131 H Respiratory Rate 20 18 Blood Pressure 194/100 H Pulse Oximetry 100 99 Oxygen Delivery Method 07/16/23 09:00 07/16/23 09:09 07/16/23 09:09 Temperature 99.7 F H Pulse Rate 127 H Respiratory Rate 15 Blood Pressure 193/92 H 188/91 H Pulse Oximetry 99 Oxygen Delivery Method 07/16/23 09:17 07/16/23 09:30 07/16/23 09:30 Temperature 99.9 F H Pulse Rate 128 H Respiratory Rate 20 Blood Pressure 196/92 H Pulse Oximetry 99 99 Oxygen Delivery Method Fraction of Inspired Oxygen 30 Oxygen Delivery Method Mechanical Ventilation Quality TeleICU VTE Deep Vein Thrombosis/Pulmonary Embolism Present on Admission: No Assessment & Plan Assessment & Plan narrative: 73 year old female with AMS acute respiratory failure acute renal failure currently afebrile, HD stable ont following commands off sedation suggest -neurochecks/seizure precautions -minmize sedation -start precedex, avoid propofol -monitor for withdrawal -vent support -sat/sbt , no plan for extubation today, due to poor mental status -repeat heat CT -consider MRI/EEG/LP -abx -cxs -keep glucose 140-180s -monitor ins/outs -adequate urine output -replace lytes prn -gi/dvt ppx -please call eICU if condition changes -discussed with Dr. Whiteside Time Spent With Patient Time with patient: 30 to 49 minutes with 50% spent counseling/coordinating care
--- NOTE | 2023-07-16 11:26 | DI.CT.S_ITS ---
PROCEDURE: CT HEAD/BRAIN WO CON INDICATIONS: altered mental status TECHNIQUE: Noncontrast 4.5 mm thick angled axial sections acquired from the foramen magnum to the vertex, with coronal and sagittal reformats. For radiation dose reduction, the following was used: automated exposure control, adjustment of mA and/or kV according to patient size. COMPARISON: [facility], CT, CT HEAD/BRAIN WO CON, 07/14/2023, 1:39. FINDINGS: Image quality: Diagnostic. CSF spaces: Basal cisterns are patent. No extra-axial fluid collections. The ventricles are symmetric in size and shape. Brain: No intracranial bleeds or masses. There is cerebral volume loss for age, with resultant ventricular and sulcal prominence. There are periventricular and deep white matter chronic small vessel ischemic changes. There is intracranial internal carotid artery atherosclerosis. Skull and face: Calvarium and visualized facial bones appear intact, without suspicious lesions. Sinuses: Visualized sinuses and mastoids are clear. IMPRESSION: No acute intracranial pathology. Dictated by: Gagan Smith M.D. on 07/16/2023 at 11:48 Approved by: Gagan Smith M.D. on 07/16/2023 at 11:48
[2023-07-16] MEDS: dexmedeTOMIDine in 0.9 % NaCL 400 MCG/100 ML PLAST..BAG 6.4 MCG IV (11:48)
--- NOTE | 2023-07-16 13:48 | CM.DPC ---
DCP Cont. Reviewed EMR and team rounds for status updates. Pt remains intubated/sedated. Her and 2-friends have been bedside and offering support. Unclear at this time what intervention for her bipolar disorder and frequent hospitalizations would be most effective, as pt has a hx of returning to her baseline mentation and functioning following the last few hospitalizations. [employer]IST will continue to monitor and assist spouse with final recommendations for OP support/intervention/resources.
[2023-07-16] MEDS: fentaNYL 1,000 MCG in DEXTROSE 5% IN WATER 230 ML 17.275 MCG IV (15:49)
--- NOTE | 2023-07-16 17:02 | PC.NURSE ---
Day Shift Note SAT done this AM, all sedation gtts off. Pt opens eyes to voice but does not track, does not follow any commands. HR and BP increase when off sedation up to the 130s and SBP 190s, unable to redirect/orient. SBT attempted by RT after sedation off for over an hour but pt with multiple apneic periods so returned to vent by RT. Down for head CT this AM, pt tolerated well. Multidisciplinary rounds done with tele-tank car mechanic, propofol replaced with precedex for sedation. SR, rate variable dependent on pt's sedation level/anxiety, mostly 80s. BP sensitive to precedex (MD aware), titrating as able, currently 0.5 mcg/kg/hr and fentanyl 1 mcg/kg/hr. sPO2 97-100% on 30% FiO2. Tube feeds at goal rate of 50 ml/hr via OG tube. Richards catheter in place and draining clear yellow urine. Britton at bedside today and updated by this RN and by Dr. Whiteside. Family friends Maddie and Lucretia Villegas visited at bedside, OK to get information about patient per Britton.
--- NOTE | 2023-07-16 18:43 | RT ---
End of shift note: Patient continues on ventilator on same settings 490/16/+5/30%. Patient did not pass wean trial this morning. Patient does not follow commands, even during sedation being off. Continue current therapy, attempt repeat SBT when appropropriate.
[2023-07-16] MEDS: dexmedeTOMIDine in 0.9 % NaCL 400 MCG/100 ML PLAST..BAG 8 MCG IV (18:48)
--- NOTE | 2023-07-16 20:08 | PM.ICURNDS ---
- Date Patient Seen: 07/16/23 Time Patient Seen: 20:08 :: This patient was seen via real time interactive two-way audiovisual telecommunication. Note: no acute events during the day mental status remains poor does not follow commands, does not track CT head -ve today would suggest mri/eeg/ LP please call eICU if conditiong changes
[2023-07-16 22:18] LABS: Alanine Aminotransferase 24 IU/L (<35); Albumin 3.8 g/dL (3.5-5.0); Albumin Globulin Ratio 1.1 (1.0-2.8); Alkaline Phosphatase 143 U/L (38-126); Aspartate Aminotransferase 26 IU/L (14-36); BUN Creatinine Ratio 22.4 (6-22); Bilirubin Total 0.4 mg/dL (0.2-1.3); Blood Urea Nitrogen 19 mg/dL (7-17); Calcium 9.5 mg/dL (8.4-10.2); Carbon Dioxide 16 mmol/L (22-32); Chloride 111 mmol/L (98-107); Estimated Glomerular Filt Rate > 60 mL/min (>60); Globulin 3.6 g/dL (1.7-4.1); Glucose 155 mg/dL (80-110); HEMOLYSIS < 15 (0-50); Magnesium 1.8 mg/dL (1.6-2.3); Phosphorous 3.5 mg/dL (2.8-4.1); Potassium 3.9 mmol/L (3.4-5.1); Sodium 136 mmol/L (137-145); Total Protein 7.4 g/dL (6.3-8.2)
[2023-07-17] VITALS (66 sets, daily range): BP systolic 91–187; BP diastolic 52–89; PULSE 61–126; RESP 14–36; TEMP 37.4–38.2; O2SAT 96–100
[2023-07-17] MEDS: CHLORHEXIDINE GLUCONATE 15 ML CUP PO ×2 (01:07→05:12)
[2023-07-17] MEDS: dexmedeTOMIDine in 0.9 % NaCL 400 MCG/100 ML PLAST..BAG 11.2 MCG IV (02:03)
[2023-07-17 05:08] LABS: Add Manual Diff / Slide Review NO; Basophils Absolute Auto 200 /uL (0-100); Basophils Percent Auto 1.2 % (0-2); Eosinophils Absolute Auto 200 /uL (0-450); Eosinophils Percent Auto 1.1 % (2-4); Hematocrit 32.9 % (36-46); Lymphocytes Absolute Auto 3800 /uL (1100-4500); Lymphocytes Percent Auto 18.1 % (25-40); Mean Corpuscular HGB Conc 33.5 % (30-36); Mean Corpuscular Hemoglobin 29.1 PG (26-34); Mean Corpuscular Volume 86.7 fL (80-100); Monocytes Absolute Auto 1300 /uL (0-900); Monocytes Percent Auto 6.1 % (3-14); Neutrophils Absolute Auto 15400 /uL (1500-7000); Neutrophils Percent Auto 73.5 % (50-75); Platelet Count 386 X10^3/uL (150-400); Red Cell Distribution Width 14.7 % (11.6-14.8); White Blood Cell Count 20.9 X10^3/uL (4.5-11.0)
[2023-07-17] MEDS: fentaNYL 1,000 MCG in DEXTROSE 5% IN WATER 230 ML 17.275 MCG IV (05:12)
[2023-07-17 05:38] LABS: BUN Creatinine Ratio 24.1 (6-22); Blood Urea Nitrogen 20 mg/dL (7-17); Calcium 9.4 mg/dL (8.4-10.2); Carbon Dioxide 15 mmol/L (22-32); Chloride 112 mmol/L (98-107); Estimated Glomerular Filt Rate > 60 mL/min (>60); Glucose 147 mg/dL (80-110); HEMOLYSIS < 15 (0-50); Potassium 3.7 mmol/L (3.4-5.1); Sodium 135 mmol/L (137-145)
[2023-07-17] MEDS: CEFEPIME 2 GM in SODIUM CHLORIDE 0.9% 100 ML IV ×2 (08:01→20:25)
[2023-07-17] MEDS: HEPARIN 5,000 UNIT/ML VIAL 5000 UNIT SUBCUT ×2 (08:01→20:25)
[2023-07-17] MEDS: PANTOPRAZOLE 40 MG VIAL IV (08:02)
[2023-07-17] MEDS: MINERAL OIL/PETROL OPHTH OINT 3.5 GM 1 APPLIC EYE-BOTH (08:02)
--- NOTE | 2023-07-17 08:33 | P.PN_ITS ---
Subjective Subjective Interval history: Narrative not obtainable, she is intubated. She is more awake and is following commands. Participate in ICU rounds with the tele ICU doctor. She is doing well on SBT and we will attempt extubation after sedation as offer an additional hour. Exam Vital Signs (past 8 hours): - 07/17/23 00:45 07/17/23 00:45 07/17/23 01:00 Temperature 100.0 F H Pulse Rate 73 Respiratory Rate 16 Blood Pressure 108/63 Pulse Oximetry 100 Oxygen Delivery Method Mechanical Ventilation 07/17/23 01:00 07/17/23 01:00 07/17/23 01:15 Temperature 100.0 F H 100.0 F H Pulse Rate 77 81 Respiratory Rate 22 21 Blood Pressure 100/55 L Pulse Oximetry 100 100 Oxygen Delivery Method 07/17/23 01:15 07/17/23 01:30 07/17/23 01:30 Temperature 100.0 F H Pulse Rate 72 Respiratory Rate 16 Blood Pressure 95/53 L 99/58 L Pulse Oximetry 100 Oxygen Delivery Method 07/17/23 01:45 07/17/23 01:45 07/17/23 02:00 Temperature 100.0 F H 100.0 F H Pulse Rate 98 H 98 H Respiratory Rate 17 23 Blood Pressure 155/74 H Pulse Oximetry 100 100 Oxygen Delivery Method 07/17/23 02:00 07/17/23 02:15 07/17/23 02:15 Temperature 100.0 F H Pulse Rate 108 H Respiratory Rate 25 H Blood Pressure 160/77 H 158/77 H Pulse Oximetry 99 Oxygen Delivery Method 07/17/23 02:30 07/17/23 02:30 07/17/23 02:45 Temperature 99.9 F H 99.9 F H Pulse Rate 82 80 Respiratory Rate 16 20 Blood Pressure 119/58 L Pulse Oximetry 98 99 Oxygen Delivery Method 07/17/23 02:45 07/17/23 03:00 07/17/23 03:00 Temperature 99.9 F H Pulse Rate 82 Respiratory Rate 16 Blood Pressure 112/60 118/66 Pulse Oximetry 100 Oxygen Delivery Method 07/17/23 03:15 07/17/23 03:15 07/17/23 03:30 Temperature 99.9 F H Pulse Rate 101 H Respiratory Rate 22 Blood Pressure 160/72 H 115/63 Pulse Oximetry 100 Oxygen Delivery Method 07/17/23 03:30 03/13/24 03:45 07/17/23 03:45 Temperature 100.0 F H 99.9 F H Pulse Rate 79 99 H Respiratory Rate 22 19 Blood Pressure 148/71 H Pulse Oximetry 99 100 Oxygen Delivery Method 07/17/23 04:00 07/17/23 04:00 07/17/23 04:15 Temperature 99.9 F H 99.9 F H Pulse Rate 102 H 90 Respiratory Rate 20 19 Blood Pressure 150/75 H Pulse Oximetry 100 100 Oxygen Delivery Method 07/17/23 04:15 07/17/23 04:30 07/17/23 04:30 Temperature 99.9 F H Pulse Rate 106 H Respiratory Rate 20 Blood Pressure 136/71 162/84 H Pulse Oximetry 100 Oxygen Delivery Method 07/17/23 04:45 07/17/23 04:45 07/17/23 05:00 Temperature 99.9 F H Pulse Rate 93 H Respiratory Rate 21 Blood Pressure 147/74 H Pulse Oximetry 100 Oxygen Delivery Method Mechanical Ventilation 07/17/23 05:00 07/17/23 05:00 07/17/23 05:15 Temperature 100.0 F H 100.0 F H Pulse Rate 104 H 105 H Respiratory Rate 20 21 Blood Pressure 161/77 H Pulse Oximetry 100 100 Oxygen Delivery Method 07/17/23 05:15 07/17/23 05:30 07/17/23 05:30 Temperature 100.0 F H Pulse Rate 106 H Respiratory Rate 19 Blood Pressure 151/76 H 162/79 H Pulse Oximetry 100 Oxygen Delivery Method 07/17/23 05:45 07/17/23 05:45 07/17/23 06:00 Temperature 100.2 F H 100.2 F H Pulse Rate 111 H 115 H Respiratory Rate 19 22 Blood Pressure 160/77 H Pulse Oximetry 100 100 Oxygen Delivery Method 07/17/23 06:00 07/17/23 06:15 07/17/23 06:15 Temperature 100.4 F H Pulse Rate 97 H Respiratory Rate 18 Blood Pressure 182/86 H 151/79 H 144/70 H Pulse Oximetry 100 Oxygen Delivery Method 07/17/23 06:30 07/17/23 06:30 07/17/23 06:45 Temperature 100.4 F H 100.4 F H Pulse Rate 99 H 98 H Respiratory Rate 18 17 Blood Pressure 153/76 H Pulse Oximetry 100 99 Oxygen Delivery Method 07/17/23 06:45 07/17/23 07:00 07/17/23 07:00 Temperature 100.4 F H Pulse Rate 91 H Respiratory Rate 17 Blood Pressure 139/68 137/66 Pulse Oximetry 99 Oxygen Delivery Method 07/17/23 07:15 07/17/23 07:15 07/17/23 07:30 Temperature 100.6 F H 100.6 F H Pulse Rate 102 H 110 H Respiratory Rate 19 21 Blood Pressure 158/76 H Pulse Oximetry 100 99 Oxygen Delivery Method 07/17/23 07:30 07/17/23 07:45 07/17/23 07:45 Temperature 100.6 F H Pulse Rate 116 H Respiratory Rate 20 Blood Pressure 157/78 H 167/84 H Pulse Oximetry 99 Oxygen Delivery Method 07/17/23 08:00 07/17/23 08:17 Temperature 100.6 F H Pulse Rate 109 H Respiratory Rate 21 Blood Pressure Pulse Oximetry 98 Oxygen Delivery Method Mechanical Ventilation Fraction of Inspired Oxygen 0.30 Oxygen Delivery Method Mechanical Ventilation Narrative Exam Narrative: On the ventilator, no distress, eyes open and tracking. Lungs are clear, ventilated. Heart is regular, no murmur. Abdomen is soft, non-tender. No leg edema. No skin rash. Objective Labs 07/17/23 04:34 07/17/23 04:34 Labs: Laboratory Results - last 24 hr 07/16/23 07/17/23 21:48 04:34 WBC 20.9 H RBC 3.80 L Hgb 11.0 L Hct 32.9 L MCV 86.7 MCH 29.1 MCHC 33.5 RDW 14.7 Plt Count 386 Neut % (Auto) 73.5 Lymph % (Auto) 18.1 L [place] % (Auto) 6.1 Eos % (Auto) 1.1 L Baso % (Auto) 1.2 Neut # (Auto) 54219 H Lymph # (Auto) 3800 [place] # (Auto) 1300 H Eos # (Auto) 200 Baso # (Auto) 200 H Sodium 136 L 135 L Potassium 3.9 3.7 Chloride 111 H 112 H Carbon Dioxide 16 L 15 L BUN 19 H 20 H Creatinine 0.85 0.83 Estimated GFR > 60 > 60 BUN/Creatinine Ratio 22.4 H 24.1 H Glucose 155 H 147 H Calcium 9.5 9.4 Phosphorus 3.5 Magnesium 1.8 Total Bilirubin 0.4 AST 26 ALT 24 Alkaline Phosphatase 143 H Total Protein 7.4 Albumin 3.8 Globulin 3.6 Albumin/Globulin Ratio 1.1 PFSH Medical History Eczema Hypothyroidism (acquired) Bipolar disorder Hypertension Surgical History Hx of cholecystectomy Family History Mother Alcohol abuse Father CVA (cerebral vascular accident) Social History household members: spouse Smoking Status: Never smoker alcohol intake: former Assessment & Plan Assessment & Plan narrative: 1. Acute toxic encephalopathy in the setting of manic phase, Bipolar 1 Disorder, present on admission and active. -improving, we will resume baseline medications today. 2. Intubated for airway protection, present on admission and active. - patient required intubation due to AMS and obtunded state only responsive to sternal rub in ED - eICU consult following. -anticipate extubation this morning, July 16. 3. Possible Sepsis, present on admission and resolved. - IVFs, Levophed now off, BCs pending. - Rocephin 2 g given in the ED - continue broad spectrum abx - cultures remained negative, stop Abx. 4. VELASQUEZ, present on admission and resolved Nutrition: enteral tube tubes. GI prophylaxis - Protonix DVT prophylaxis - heparin Time Spent With Patient Time with patient: 30 to 49 minutes with 50% spent counseling/coordinating care Quality VTE Deep Vein Thrombosis/Pulmonary Embolism Present on Admission: No
[2023-07-17] MEDS: VANCOMYCIN 1,000 MG/200 ML PIGGYBACK 200 MG IV (08:45)
--- NOTE | 2023-07-17 09:47 | PM.PN.EICU ---
Subjective Subjective IF CAMERA ACTIVATED, patient seen via real-time interactive audiovisual communication: Camera activated Consent obtained for tele-care provider care: Yes Patient Location: ICU Provider location (State): [place] Other participants/roles: Dr. Whiteside, bedside nursing team Interval history: no acute events overnight more awake this am Current Medications Current Medications Medications: Home Medications amlodipine 10 mg tablet 10 mg PO BEDTIME 03/06/20 [History Confirmed 07/15/23] metoclopramide HCl 10 mg tablet (Reglan) 10 mg PO Q6H PRN nausea and vomiting #14 tabs 08/27/21 [Rx Confirmed 07/15/23] atorvastatin 20 mg tablet 20 mg PO BEDTIME 04/22/22 [History Confirmed 07/15/23] betamethasone dipropionate 0.05 % topical cream 0.05 applic topical BID eczema 04/22/22 [History Confirmed 07/15/23] oxycodone 5 mg tablet 5 mg PO Q6HR 04/22/22 [History Confirmed 07/15/23] levothyroxine 75 mcg tablet (Synthroid) 75 mcg PO DAILY@0600 #30 tabs 05/13/22 [Rx Confirmed 07/15/23] Calcium 500 1 tab PO BEDTIME 06/13/23 [History Confirmed 07/15/23] quetiapine 300 mg tablet 300 mg PO BEDTIME #30 tabs 06/27/23 [Rx Confirmed 07/15/23] Visit Medications (administered) Generic Name Dose Route Start Last Admin Trade Name Freq PRN Reason Stop Dose Admin Artificial Tears 1 applic 07/15/23 16:30 07/17/23 08:02 Mineral Oil/Petrol Ophth Oint 3.5 Gm EYE-BOTH 1 applic BID ANDRESSA Administration Chlorhexidine Gluconate 15 ml 07/14/23 06:00 07/17/23 05:12 Chlorhexidine Gluconate 15 Ml Cup PO 15 ml Q6HR ANDRESSA Administration Heparin Sodium (Porcine) 5,000 unit 07/14/23 09:00 07/17/23 08:01 Heparin 5,000 Unit/Ml Vial SUBCUT 5,000 unit BID ANDRESSA Administration Propofol 1,000 mg in 100 mls @ 2.055 mls/hr 07/14/23 04:45 07/16/23 08:22 Propofol IV 0 mcg/kg/min TITRATE ANDRESSA 0 mls/hr Titration Protocol 5 MCG/KG/MIN NOREPINEPHRINE BITARTRATE/D5W 4 mg in 250 mls @ 25.685 mls/hr 07/14/23 04:40 07/14/23 07:23 Levophed IV Not Given TITRATE ANDRESSA Protocol 0.1 MCG/KG/MIN Cefepime HCl 2 gm/ Sodium 100 mls @ 200 mls/hr 07/14/23 09:15 07/17/23 08:42 Chloride IV Infused Q12H ANDRESSA Infusion Fentanyl 1,000 mcg/ Dextrose 250 mls @ 12.093 mls/hr 07/14/23 13:45 07/17/23 07:59 IV 0 mcg/kg/hr TITRATE ANDRESSA 0 mls/hr Titration Protocol 0.7 MCG/KG/HR Sodium Chloride 500 mls @ 1,000 mls/hr 07/15/23 13:11 07/16/23 03:00 Normal Saline 0.9% IV Infused BOLUS PRN Infusion SBP<100 dexmedeTOMIDine in 0.9 % NaCL 400 mcg in 100 mls @ 3.2 mls/hr 07/16/23 10:45 07/17/23 09:39 Precedex IV 0 mcg/kg/hr TITRATE ANDRESSA 0 mls/hr Titration Protocol 0.2 MCG/KG/HR Vancomycin HCl 1,000 mg in 200 mls @ 200 mls/hr 07/17/23 09:00 07/17/23 08:45 Vancomycin IV 200 mls/hr Q24H ANDRESSA Administration Morphine Sulfate 1 mg 07/15/23 12:14 07/15/23 23:05 Morphine 2 Mg/Ml Inj IV 1 mg Q3HR PRN Administration Pain, Moderate (4-6) Pantoprazole Sodium 40 mg 07/14/23 09:00 07/17/23 08:02 Pantoprazole 40 Mg Vial IV 40 mg DAILY ANDRESSA Administration Objective Ventilator Parameters: Ventilator Settings FiO2 21 RT Vent Frequency 16 Ventilator Tidal Volume 490 Exhaled Vt/kg IBW 6.5 Positive End Expiratory 5 Pressure Ventilator Pressure Support 10 Inspiratory Phase Time 0.9 I:E Ratio 1:3.2 Patient Position HOB >= 30 degrees Labs 07/17/23 04:34 07/17/23 04:34 Labs: Laboratory Results - last 24 hr 07/16/23 07/17/23 21:48 04:34 WBC 20.9 H RBC 3.80 L Hgb 11.0 L Hct 32.9 L MCV 86.7 MCH 29.1 MCHC 33.5 RDW 14.7 Plt Count 386 Neut % (Auto) 73.5 Lymph % (Auto) 18.1 L [place] % (Auto) 6.1 Eos % (Auto) 1.1 L Baso % (Auto) 1.2 Neut # (Auto) 90620 H Lymph # (Auto) 3800 [place] # (Auto) 1300 H Eos # (Auto) 200 Baso # (Auto) 200 H Sodium 136 L 135 L Potassium 3.9 3.7 Chloride 111 H 112 H Carbon Dioxide 16 L 15 L BUN 19 H 20 H Creatinine 0.85 0.83 Estimated GFR > 60 > 60 BUN/Creatinine Ratio 22.4 H 24.1 H Glucose 155 H 147 H Calcium 9.5 9.4 Phosphorus 3.5 Magnesium 1.8 Total Bilirubin 0.4 AST 26 ALT 24 Alkaline Phosphatase 143 H Total Protein 7.4 Albumin 3.8 Globulin 3.6 Albumin/Globulin Ratio 1.1 Exam Vital Signs (past 8 hours): - 07/17/23 02:00 07/17/23 02:00 07/17/23 02:15 Temperature 100.0 F H 100.0 F H Pulse Rate 98 H 108 H Respiratory Rate 23 25 H Blood Pressure 160/77 H Pulse Oximetry 100 99 Oxygen Delivery Method 07/17/23 02:15 07/17/23 02:30 07/17/23 02:30 Temperature 99.9 F H Pulse Rate 82 Respiratory Rate 16 Blood Pressure 158/77 H 119/58 L Pulse Oximetry 98 Oxygen Delivery Method 07/17/23 02:45 07/17/23 02:45 07/17/23 03:00 Temperature 99.9 F H Pulse Rate 80 Respiratory Rate 20 Blood Pressure 112/60 118/66 Pulse Oximetry 99 Oxygen Delivery Method 07/17/23 03:00 07/17/23 03:15 07/17/23 03:15 Temperature 99.9 F H 99.9 F H Pulse Rate 82 101 H Respiratory Rate 16 22 Blood Pressure 160/72 H Pulse Oximetry 100 100 Oxygen Delivery Method 07/17/23 03:30 07/17/23 03:30 07/17/23 03:45 Temperature 100.0 F H 99.9 F H Pulse Rate 79 99 H Respiratory Rate 22 19 Blood Pressure 115/63 Pulse Oximetry 99 100 Oxygen Delivery Method 07/17/23 03:45 07/17/23 04:00 07/17/23 04:00 Temperature 99.9 F H Pulse Rate 102 H Respiratory Rate 20 Blood Pressure 148/71 H 150/75 H Pulse Oximetry 100 Oxygen Delivery Method 07/17/23 04:15 07/17/23 04:15 07/17/23 04:30 Temperature 99.9 F H 99.9 F H Pulse Rate 90 106 H Respiratory Rate 19 20 Blood Pressure 136/71 Pulse Oximetry 100 100 Oxygen Delivery Method 07/17/23 04:30 07/17/23 04:45 07/17/23 04:45 Temperature 99.9 F H Pulse Rate 93 H Respiratory Rate 21 Blood Pressure 162/84 H 147/74 H Pulse Oximetry 100 Oxygen Delivery Method 07/17/23 05:00 07/17/23 05:00 07/17/23 05:00 Temperature 100.0 F H Pulse Rate 104 H Respiratory Rate 20 Blood Pressure 161/77 H Pulse Oximetry 100 Oxygen Delivery Method Mechanical Ventilation 07/17/23 05:15 07/17/23 05:15 07/17/23 05:30 Temperature 100.0 F H 100.0 F H Pulse Rate 105 H 106 H Respiratory Rate 21 19 Blood Pressure 151/76 H Pulse Oximetry 100 100 Oxygen Delivery Method 07/17/23 05:30 07/17/23 05:45 07/17/23 05:45 Temperature 100.2 F H Pulse Rate 111 H Respiratory Rate 19 Blood Pressure 162/79 H 160/77 H Pulse Oximetry 100 Oxygen Delivery Method 07/17/23 06:00 07/17/23 06:00 07/17/23 06:15 Temperature 100.2 F H 100.4 F H Pulse Rate 115 H 97 H Respiratory Rate 22 18 Blood Pressure 182/86 H 151/79 H Pulse Oximetry 100 100 Oxygen Delivery Method 07/17/23 06:15 07/17/23 06:30 07/17/23 06:30 Temperature 100.4 F H Pulse Rate 99 H Respiratory Rate 18 Blood Pressure 144/70 H 153/76 H Pulse Oximetry 100 Oxygen Delivery Method 07/17/23 06:45 07/17/23 06:45 07/17/23 07:00 Temperature 100.4 F H 100.4 F H Pulse Rate 98 H 91 H Respiratory Rate 17 17 Blood Pressure 139/68 Pulse Oximetry 99 99 Oxygen Delivery Method 07/17/23 07:00 07/17/23 07:15 07/17/23 07:15 Temperature 100.6 F H Pulse Rate 102 H Respiratory Rate 19 Blood Pressure 137/66 158/76 H Pulse Oximetry 100 Oxygen Delivery Method 07/17/23 07:30 07/17/23 07:30 07/17/23 07:45 Temperature 100.6 F H 100.6 F H Pulse Rate 110 H 116 H Respiratory Rate 21 20 Blood Pressure 157/78 H Pulse Oximetry 99 99 Oxygen Delivery Method 07/17/23 07:45 07/17/23 08:00 07/17/23 08:00 Temperature 100.6 F H Pulse Rate 109 H Respiratory Rate 21 Blood Pressure 167/84 H 151/79 H Pulse Oximetry 98 Oxygen Delivery Method 07/17/23 08:15 07/17/23 08:15 07/17/23 08:17 Temperature 100.6 F H Pulse Rate 104 H Respiratory Rate 22 Blood Pressure 152/70 H Pulse Oximetry 98 Oxygen Delivery Method Mechanical Ventilation 07/17/23 08:30 07/17/23 08:30 07/17/23 08:41 Temperature 100.6 F H Pulse Rate 101 H Respiratory Rate 22 Blood Pressure 141/67 H Pulse Oximetry 98 98 Oxygen Delivery Method 07/17/23 08:45 07/17/23 08:45 07/17/23 09:00 Temperature 100.6 F H Pulse Rate 109 H Respiratory Rate 19 Blood Pressure 161/81 H 157/84 H Pulse Oximetry 99 Oxygen Delivery Method 07/17/23 09:00 Temperature 100.6 F H Pulse Rate 114 H Respiratory Rate 20 Blood Pressure Pulse Oximetry 98 Oxygen Delivery Method Fraction of Inspired Oxygen 0.30 Oxygen Delivery Method Mechanical Ventilation Quality TeleICU VTE Deep Vein Thrombosis/Pulmonary Embolism Present on Admission: No Assessment & Plan Assessment & Plan narrative: 73 year old female with: AMS acute respiratory failure acute renal failure currently afebrile, HD stable off sedation , more awake today, following some commands suggest -neurochecks/seizure precautions -dc sedtavies -monitor for withdrawal -vent support -sat/sbt appears ready for extubation trial -repeat heat CT was -ve -would still MRI/EEG/LP -abx -cxs -keep glucose 140-180s -monitor ins/outs -adequate urine output -replace lytes prn -gi/dvt ppx -please call eICU if condition changes -discussed with Dr. Whitesdie Time Spent With Patient Time with patient: 30 to 49 minutes with 50% spent counseling/coordinating care
[2023-07-17 10:15] LABS: HCO3 ABG 14 mmol/L (23-27); PCO2 ABG 22.6 mmHg (35-45); PO2 ABG 90 mmHg (80-100)
[2023-07-17 10:16] LABS: Allen Test for ABG Passed? Yes, Passed; Blood Gas Collection Site Left Radial; Fractionated Inspired Oxygen 21; Oxygen Saturation ABG 97 % (95-100); TCO2 ABG 15 mmol/L (23-27)
--- NOTE | 2023-07-17 10:30 | CM.DPC ---
DCP Cont. Reviewed EMR and team rounds for status updates. Pt is extubated, is still confusional/disoriented, plan is to restart her home psych meds maybe later today around lunch. Family will be coming to visit her later today, the hope is that their visit will also help her to orient and improve. Will continue to monitor. This [employer] will also check-in with her spouse later when he arrives to see if he was able to complete the BOB/Medicaid application.
[2023-07-17 11:16] LABS: Sodium Urine Random 83 mmol/L (30-90)
[2023-07-17] MEDS: ACETAMINOPHEN 325 MG TABLET 650 MG PO ×2 (11:38→18:05)
[2023-07-17] MEDS: OXYCODONE IR 5 MG TABLET PO ×3 (11:39→22:05)
--- NOTE | 2023-07-17 13:00 | PC.NURSE ---
Day Shift Note Pt with eyes open this morning, still not tracking but is following commands, biting at tube. Sedation off for SAT, pt remained calm, HR up to the 110s and SBP 150-160s. SBT started by RT at 0841. Remained on SBT during multidisciplinary rounds at 0930 and ABG obtained per Dr. Melara. RR in the 15-28 bpm range throughout SBT and SpO2 99%. Reviewed ABG and VS with Dr. Melara and order received to extubate. Pt extubated to RA at 0952, SpO2 97-99%, strong cough noted, voice hoarse. Soft wrist restraints and OG d/c'd at time of extubation. Pt reporting pain to back and legs, passed bedside nursing swallow screen and tylenol and oxycodone crushed in pudding without issue. Pt often calls out with yells/moaning and help. Pt is oriented x3. Reassurance given and reoriented to call light and situation. Britton updated via phone and will be by later.
--- NOTE | 2023-07-17 13:51 | ST.IPCSEOM ---
Visit Care Team Role Provider Type Dagmar AndrewamadeoREBECA menezes Primary Care Provider Non-Staff Specialty: Medical Address: [address] [facility], [place], [address] Email: Deepak Álvarez MD Other Providers Physician Specialty: Medical Address: Phone: Fax: Email: Vera Murrell MD Other Providers Physician Specialty: Medical Address: Phone: Fax: Email: Speedy Melara MD Other Providers Physician Specialty: Medical Address: [address] [place], [address] Phone: Fax: Email: Mary Schwartz MD Other Providers Physician Specialty: Internal Medicine Address: Phone: Fax: Email: Miguel Saunders MD Other Providers Physician Specialty: Medical Address: Phone: Fax: Email: Nicole Kimbrough MD Other Providers Physician Specialty: Anesthesiology Internal Medicine Address: [address] [place], [address] Fax: Email: [email or web address] Xavier Castañeda MD Other Providers Physician Specialty: Internal Medicine Address: [address] [place], [address] Phone: Fax: Email: [email or web address] David Krueger MD Other Providers Physician Specialty: Internal Medicine Address: Phone: Fax: Email: Lawrence Tobar MD Other Providers Physician Specialty: Medical Address: Phone: Fax: Email: Shravan Clinton MD Other Providers Physician Specialty: Internal Medicine Address: [address] [place], [address] Phone: Fax: Email: Dewey Field MD Other Providers Physician Specialty: Medical Address: [address], [address] Phone: Fax: Email: Marie Adams MD Other Providers Physician Specialty: Medical Address: Phone: Fax: Email: Kaley Dasilva Other Providers Physician Specialty: Medical Address: Phone: Fax: Email: Tabby Farah MD Other Providers Physician Specialty: Internal Medicine Address: Phone: Fax: Email: Ciarra Velazquez MD Emergency Provider Physician Referring Provider Specialty: Emergency Medicine Address: [address], [place], [address] Email: [email or web address] Edvin [email or web address] MD Admit Provider Physician Attending Provider Specialty: Internal Medicine Address: [address] [place] [address], [address] Fax: Email: [email or web address] Diagnoses Other acidosis (07/14/23) Bipolar disorder, current episode manic without psychotic features, unspecified (07/14/23) Encephalopathy, unspecified (07/14/23) Metabolic encephalopathy (07/14/23) Acute respiratory failure, unspecified whether with hypoxia or hypercapnia (07/14/23) Acute kidney failure, unspecified (07/14/23) Past Medical History (Last Reviewed 07/15/23 @ 08:07 by Griffin Whiteside MD) Bipolar disorder (Medical) Eczema (Medical) Hypertension (Medical) Hypothyroidism (acquired) (Medical) Speech-Language Pathology Swallow Evaluation ENGINEER Clinical Swallow Evaluation Start: 07/17/23 12:29 Freq: Status: Active Protocol: Document 07/17/23 13:28 CG (Rec: 07/17/23 13:51 CG [id number]) Clinical Swallow Evaluation Session Time Visit Start Time 12:15 Visit Stop Time 12:35 Total Visit Minutes 20 Visit Information Visit Number [address] Griffin Whiteside Reason for Referral recently extubated Next Note Type Next Note Type Treatment Note Patient Information Identification Type Name,Wristband History Per H&P: 73 y/o with PMH of Bipolar Disorder presented confused, agitated, disoriented and quickly intubated for airway protection. Per she was taking too much of her meds including baclofen and oxycodone for her foot pain. Initial workup shows leukocytosis, left shift, elevated LA, VELASQUEZ and no obvious source of infection, with clear CXR and UA. Covered with empiric Rocephin, given IVFs, BCs pending. Similar presentation few weeks ago. She was suspected on non -compliance with medications, apparently she was off Seroquel. Seen by psychiatry and discharged on previous regimen of prn Ativan and scheduled hs Seroquel. Supposed to follow with primary psychiatrist but I don 't know if that ever happened. Pt was extubated this morning. She passed nursing swallow screen, but ST nuviaal requested given recent extubation and continued altered mental status. Subjective Observations Pt sitting upright in bed. Pt with reduced alertnedd and not consistently visually tracking, but able to respond verbally to ENGINEER questions/ directions. Able to follow simple 1-step commands. Pt oriented to place, answering hospital when asked where she is. Was unable to state first and last name when asked . Not oriented to time - unable to state whether it was morning, afternoon, or night. She presented with dry, hoarse sounding voice after having been recently extubated this morning. Nurse assisted in putting pt's dentures in mouth prior to PO trials with ST. Reported by Patient/Caregiver Other Symptoms Other Comment Recent extubation, weak/hoarse voice, AMS Current Diet NPO The IDDSI Framework Protocol: IDDSI.1 Objective Assessment Mental Status Cooperative,Confused,Lethargic Oral Integrity WFL Dentition Upper dentures/partials,Lower dentures/partials,Edentulous, Poor denture or partial fitting Lip Function Mild impairment Lip Retraction Reduced range of motion Tongue Function Mild impairment Tongue Protrusion Within normal limits Jaw Function Mild impairment Jaw Opening Reduced range of motion Comment OME significant for the following: -edentulous with poor fitting dentures, particularly upper denture -hoarse vocal quality -reduced jaw opening and reduced lingual, labial ROM resulting in difficulty with bolus acceptance during PO trials Food and Liquid Trials Position During Assessment Upright (90 degrees),In bed Liquids Trialed Thin (IDDSI 0) Solid Trials Purred (IDDSI 4),Minced & Moist (IDDSI 5) Administration Type Tea spoon,Needs some assistance Oral Impairment Moderately impaired Oral Phase Comments For trials thin liquid via teaspoon, pt presented with mildly decreased labial ROM and decreased awareness of ENGINEER presenting trial. However, labial seal around spoon was functional with no anterior spillage noted. Bolus hold appeared coordinated with A-P transit and initiation of pharyngeal swallow appearing brisk and timely. For trials thin liquid via straw sip, pt presented with oral groping/difficulty forming lingual seal around straw. Once formed, seal was adequate with good suction and no anterior bolus loss observed. Pt independently took single sips. Even when instructed to take multiple sips in a row, pt would take a sip, remove straw from mouth, and then continue with another sip. She did not attempt serial sips. Bolus hold appeared coordinated with A-P transit and initiation of pharyngeal swallow appearing brisk and timely. For trials pudding (IDDSI 4) via teaspoon, oral acceptance was limited as pt presented with reduced oral cavity opening and labial/lingual movement. She accepted approximately 1/2 tsp of pudding at a time. Once in oral cavity, A-P transit was mildly slowed but pharyngeal swallow initiation appeared subjectively to be timely. For trials pudding with crushed magdalene cracker (IDDSI 5), oral acceptance was limited as pt presented with reduced oral cavity opening and labial/lingual movement. She accepted approximately 1/2 tsp of bolus at a time. Pt presented with discoordinated and slowed mastication, likely exacerbated by ill-fitting dentures. Pt stated I don't like that. ENGINEER asked if pt felt it was too crunchy, to which pt replied Yes. Pt stated she preferred plain pudding. Pharyngeal Impairment Within functional limits Pharyngeal Phase Comments For trials thin liquid via teaspoon, thin liquid via straw sip, and pudding via teaspoon, no overt s/sx aspiration were observed ( though silent aspiration cannot be ruled out without an instrumental assessment). No cough/throat clear was observed across these trials. Following trials, vocal quality remained weak/hoarse, but not wet. For trials IDDSI 5, pt presented with mild throat clearing after the swallow. Vocal quality remained clear, though weak, after the swallow . The IDDSI Framework Protocol: IDDSI.1 Findings Swallowing Function Oral phase dysphagia Swallowing Function Comments Oral phase dysphagia 2/ AMS, exacerbated by ill fitting dentures Severity of Swallow Impairment Mildly-moderately impaired Contributing Factors to Swallow Reduced alertness or attention Impairment ,Reduced oral strength/ coordination/sensation Prognosis Fair Based on Cognitive status,Comorbidities Impact on Safety and Functioning Risk for inadequate nutrition/ hydration Recommendations Instrumental Assessment No Swallowing Treatment Yes Duration Daily while inpatient Recommended Solids Pureed (IDDSI 4) Recommended Liquids Thin (IDDSI 0) Other Recommendations Do not use dentures until more alert. Ill-fitting dentures may increase risk of aspirating puree solids and decrease overall oral hygeine status due to bolus residue collecting in dentures. Safety Precautions/Swallowing Supervision needed for all Recommendations meals,1 to 1 close supervision ,Feed only when alert,Remain upright (90 degrees) during all oral intake,Small bites and sips when eating Medication Recommendations As Tolerated Discharge Recommendations Home Education Patient/Caregiver Education Described results of evaluation,Patient expressed understanding of evaluation, Patient expressed agreement with goals & treatment plans, Family/caregivers expressed understanding of evaluation Goals Short-term Goals STG 1: Patient will tolerate therapeutic PO trials of IDDSI 4/5/6 with no clinical s/s of dysphagia 100% of the time in order to consume least restrictive diet. STG 2: Patient will tolerate thin liquids with no clinical s/s of aspiration 100% of the time in order to consume least restrictive diet. Long-term Goals LTG: Patient will tolerate safest and most efficient diet with no clinical s/s of aspiration or dysphagia 100% of the time in order to consume least restrictive diet .
[2023-07-17] MEDS: QUETIAPINE 100 MG TABLET 300 MG PO (20:25)
[2023-07-17] MEDS: ATORVASTATIN 20 MG TABLET PO (20:25)
[2023-07-17] MEDS: AMLODIPINE 5 MG TABLET 10 MG PO (20:25)
--- NOTE | 2023-07-17 20:36 | PM.ICURNDS ---
- Date Patient Seen: 07/17/23 Time Patient Seen: 20:37 :: This patient was seen via real time interactive two-way audiovisual telecommunication. Note: extubated today doing well. afebrile, HD stable, mental status appears baseline urine lytes pending
[2023-07-17] MEDS: SODIUM CHLORIDE 0.9% 500 ML IV (22:17)
[2023-07-18] VITALS (16 sets, daily range): BP systolic 105–145; BP diastolic 56–68; PULSE 81–122; RESP 17–37; TEMP 36.4–37.2; O2SAT 90–99
[2023-07-18] MEDS: ACETAMINOPHEN 325 MG TABLET 650 MG PO ×2 (00:44→06:27)
[2023-07-18] MEDS: OXYCODONE IR 5 MG TABLET PO ×2 (03:15→11:04)
[2023-07-18 04:54] LABS: Add Manual Diff / Slide Review NO; Basophils Absolute Auto 100 /uL (0-100); Basophils Percent Auto 0.7 % (0-2); Eosinophils Absolute Auto 300 /uL (0-450); Eosinophils Percent Auto 1.7 % (2-4); Hematocrit 30.2 % (36-46); Hemoglobin 10.1 g/dL (12.0-16.0); Lymphocytes Absolute Auto 2600 /uL (1100-4500); Lymphocytes Percent Auto 16.2 % (25-40); Mean Corpuscular HGB Conc 33.5 % (30-36); Mean Corpuscular Hemoglobin 29.3 PG (26-34); Mean Corpuscular Volume 87.4 fL (80-100); Monocytes Absolute Auto 800 /uL (0-900); Monocytes Percent Auto 5.3 % (3-14); Neutrophils Absolute Auto 12000 /uL (1500-7000); Neutrophils Percent Auto 76.1 % (50-75); Platelet Count 307 X10^3/uL (150-400); Red Blood Cell Count 3.45 X10^6/uL (4.0-5.2); Red Cell Distribution Width 14.3 % (11.6-14.8); White Blood Cell Count 15.7 X10^3/uL (4.5-11.0)
[2023-07-18 05:06] LABS: BUN Creatinine Ratio 22.1 (6-22); Blood Urea Nitrogen 19 mg/dL (7-17); Calcium 9.5 mg/dL (8.4-10.2); Carbon Dioxide 17 mmol/L (22-32); Chloride 115 mmol/L (98-107); Estimated Glomerular Filt Rate > 60 mL/min (>60); Glucose 102 mg/dL (80-110); HEMOLYSIS < 15 (0-50); Potassium 3.6 mmol/L (3.4-5.1); Sodium 139 mmol/L (137-145)
[2023-07-18] MEDS: LEVOTHYROXINE 75 MCG TABLET PO (06:27)
--- NOTE | 2023-07-18 07:26 | PM.PN.1 ---
Subjective Subjective Interval history: Slept last night. No dyspnea or pain today. Exam Vital Signs (past 8 hours): - 07/18/23 00:00 07/18/23 00:00 07/18/23 00:00 Temperature 98.4 F Pulse Rate 105 H Respiratory Rate 19 Blood Pressure 105/57 L Pulse Oximetry 96 Oxygen Delivery Method Room Air Oxygen Flow Rate 0 07/18/23 02:00 07/18/23 02:00 07/18/23 04:00 Temperature 98.8 F Pulse Rate 102 H Respiratory Rate 17 Blood Pressure 110/59 L 113/56 L Pulse Oximetry 98 Oxygen Delivery Method Oxygen Flow Rate 0 07/18/23 04:00 07/18/23 04:00 07/18/23 06:00 Temperature 98.6 F Pulse Rate 98 H Respiratory Rate 19 Blood Pressure 112/56 L Pulse Oximetry 97 Oxygen Delivery Method Room Air Oxygen Flow Rate 0 07/18/23 06:00 Temperature 99.0 F Pulse Rate 96 H Respiratory Rate 24 Blood Pressure Pulse Oximetry 98 Oxygen Delivery Method Oxygen Flow Rate 0 Fraction of Inspired Oxygen 0.30 Oxygen Delivery Method Room Air Oxygen Flow Rate 0 Narrative Exam Narrative: NAD, alert and oriented. Fluent speech. Lungs are clear, normal rate and effort. Heart is regular, no murmur gallop or rub. Abdomen is soft, non distended. Extremities are free of edema. Objective Labs 07/18/23 04:38 07/18/23 04:38 Labs: Laboratory Results - last 24 hr 07/17/23 07/17/23 07/18/23 09:45 11:04 04:38 WBC 15.7 H RBC 3.45 L Hgb 10.1 L Hct 30.2 L MCV 87.4 MCH 29.3 MCHC 33.5 RDW 14.3 Plt Count 307 Neut % (Auto) 76.1 H Lymph % (Auto) 16.2 L [place] % (Auto) 5.3 Eos % (Auto) 1.7 L Baso % (Auto) 0.7 Neut # (Auto) 73569 H Lymph # (Auto) 2600 [place] # (Auto) 800 Eos # (Auto) 300 Baso # (Auto) 100 ABG Sample Site Left radial ABG pH 7.40 ABG pCO2 22.6 L* ABG pO2 90 ABG HCO3 14 L ABG Total CO2 15 L ABG O2 Saturation 97 ABG Base Excess -11.0 L FiO2 21 Sodium 139 Potassium 3.6 Chloride 115 H Carbon Dioxide 17 L BUN 19 H Creatinine 0.86 Estimated GFR > 60 BUN/Creatinine Ratio 22.1 H Glucose 102 Calcium 9.5 Ur Random Sodium 83 PFSH Medical History Eczema Hypothyroidism (acquired) Bipolar disorder Hypertension Surgical History Hx of cholecystectomy Family History Mother Alcohol abuse Father CVA (cerebral vascular accident) Social History household members: spouse Smoking Status: Never smoker alcohol intake: former Assessment & Plan Assessment & Plan narrative: 1. Acute toxic encephalopathy in the setting of manic phase, Bipolar 1 Disorder, present on admission and resolved. -resumed baseline medications 07/16. 2. VELASQUEZ, present on admission and resolved 3. Hyperchloremic acidosis, new and active. -stop saline. 4. Bipolar 1, present on admission and active. -continue home medications. Nutrition: regular diet. OOB/PT and OT evals. Discharge planning. Quality VTE Deep Vein Thrombosis/Pulmonary Embolism Present on Admission: No
[2023-07-18] MEDS: HEPARIN 5,000 UNIT/ML VIAL 5000 UNIT SUBCUT ×2 (09:18→20:38)
[2023-07-18] MEDS: VANCOMYCIN 1,000 MG/200 ML PIGGYBACK 200 MG IV (09:19)
[2023-07-18] MEDS: PANTOPRAZOLE 40 MG VIAL IV (09:19)
[2023-07-18] MEDS: CEFEPIME 2 GM in SODIUM CHLORIDE 0.9% 100 ML IV ×2 (09:20→20:39)
--- NOTE | 2023-07-18 10:50 | PM.PN.1 ---
Subjective Subjective Interval history: She was extubated yesterday, July 16. She is doing well today. She feels somewhat weak but denies any chest pain or dyspnea. She also notes some anxiety. Exam Vital Signs (past 8 hours): - 07/18/23 04:00 07/18/23 04:00 07/18/23 04:00 Temperature 98.6 F Pulse Rate 98 H Respiratory Rate 19 Blood Pressure 113/56 L Pulse Oximetry 97 Oxygen Delivery Method Room Air Oxygen Flow Rate 0 07/18/23 06:00 07/18/23 06:00 07/18/23 08:00 Temperature 99.0 F Pulse Rate 96 H Respiratory Rate 24 Blood Pressure 112/56 L 122/59 L Pulse Oximetry 98 Oxygen Delivery Method Oxygen Flow Rate 0 07/18/23 08:00 07/18/23 08:00 Temperature 99.0 F Pulse Rate 100 H Respiratory Rate 18 Blood Pressure Pulse Oximetry 98 Oxygen Delivery Method Room Air Oxygen Flow Rate Fraction of Inspired Oxygen 0.30 Oxygen Delivery Method Room Air Oxygen Flow Rate 0 Narrative Exam Narrative: NAD, oriented, fluent speech. Lungs are clear with normal effort. Heart is regular, without murmur. Abdomen is soft, nontender. Extremities are free of edema. Objective Labs 07/18/23 04:38 07/18/23 04:38 Labs: Laboratory Results - last 24 hr 07/17/23 07/18/23 11:04 04:38 WBC 15.7 H RBC 3.45 L Hgb 10.1 L Hct 30.2 L MCV 87.4 MCH 29.3 MCHC 33.5 RDW 14.3 Plt Count 307 Neut % (Auto) 76.1 H Lymph % (Auto) 16.2 L [place] % (Auto) 5.3 Eos % (Auto) 1.7 L Baso % (Auto) 0.7 Neut # (Auto) 84645 H Lymph # (Auto) 2600 [place] # (Auto) 800 Eos # (Auto) 300 Baso # (Auto) 100 Sodium 139 Potassium 3.6 Chloride 115 H Carbon Dioxide 17 L BUN 19 H Creatinine 0.86 Estimated GFR > 60 BUN/Creatinine Ratio 22.1 H Glucose 102 Calcium 9.5 Ur Random Sodium 83 PFSH Medical History Eczema Hypothyroidism (acquired) Bipolar disorder Hypertension Surgical History Hx of cholecystectomy Family History Mother Alcohol abuse Father CVA (cerebral vascular accident) Social History household members: spouse Smoking Status: Never smoker alcohol intake: former Assessment & Plan Assessment & Plan narrative: 1. Acute toxic encephalopathy in the setting of manic phase, Bipolar 1 Disorder, present on admission and resolved. -resumed baseline medications 07/16. 2. VELASQUEZ, present on admission and resolved. 3. Hyperchloremic acidosis, new and active. -stop saline. Start Bicarb infusion at 50/hr. Monitor Cl. 4. Bipolar 1, present on admission and active. -continue home medications. DISPO: Out of bed, advance activities, assess response to her baseline medications. Also monitor her loose stools. Possibly home in 1-2 days. Nutrition: regular diet. OOB/PT and OT evals. Discharge planning. Quality VTE Deep Vein Thrombosis/Pulmonary Embolism Present on Admission: No
[2023-07-18] MEDS: SODIUM BICARB 8.4% VIAL 150 MEQ in DEXTROSE 5% WATER 1,000 ML 75 MEQ IV (11:42)
[2023-07-18] MEDS: LORazepam 1 MG TABLET PO ×3 (12:06→23:19)
[2023-07-18] MEDS: LOPERAMIDE 2 MG CAPSULE PO (12:06)
--- NOTE | 2023-07-18 15:24 | ST.IPDYTX ---
Visit Care Team Role Provider Type Dagmar AndrewamadeoREBECA menezes Primary Care Provider Non-Staff Specialty: Medical Address: [address] [facility], [place], [address] Email: Deepak Álvarez MD Other Providers Physician Specialty: Medical Address: Phone: Fax: Email: Vera Murrell MD Other Providers Physician Specialty: Medical Address: Phone: Fax: Email: Speedy Melara MD Other Providers Physician Specialty: Medical Address: [address] [place], [address] Phone: Fax: Email: Mary Schwartz MD Other Providers Physician Specialty: Internal Medicine Address: Phone: Fax: Email: Miguel Saunders MD Other Providers Physician Specialty: Medical Address: Phone: Fax: Email: Nicole Kimbrough MD Other Providers Physician Specialty: Anesthesiology Internal Medicine Address: [address] [place], [address] Fax: Email: [email or web address] Xavier Castañeda MD Other Providers Physician Specialty: Internal Medicine Address: [address] [place], [address] Phone: Fax: Email: [email or web address] David Krueger MD Other Providers Physician Specialty: Internal Medicine Address: Phone: Fax: Email: Lawrence Tobar MD Other Providers Physician Specialty: Medical Address: Phone: Fax: Email: Shravan Clinton MD Other Providers Physician Specialty: Internal Medicine Address: [address] [place], [address] Phone: Fax: Email: Dewey Field MD Other Providers Physician Specialty: Medical Address: [address], [address] Phone: Fax: Email: Marie Adams MD Other Providers Physician Specialty: Medical Address: Phone: Fax: Email: Kaley Dasilva Other Providers Physician Specialty: Medical Address: Phone: Fax: Email: Tabby Farah MD Other Providers Physician Specialty: Internal Medicine Address: Phone: Fax: Email: Ciarra Velazquez MD Emergency Provider Physician Referring Provider Specialty: Emergency Medicine Address: [address], [place], [address] Email: [email or web address] Edvin Lr MD Admit Provider Physician Attending Provider Specialty: Internal Medicine Address: [address] [place] [address], [address] Fax: Email: [email or web address] LAND CLEARER Dysphagia Treatment LAND CLEARER Dysphagia Treatment Start: 07/18/23 15:06 Freq: Status: Active Protocol: Document 07/18/23 15:07 CG (Rec: 07/18/23 15:23 CG [id number]) Dysphagia Treatment Session Time Visit Start Time 14:35 Visit Stop Time 15:00 Total Visit Minutes 25 Visit Information Visit Number 2 Patient Information Subjective Observations Pt sitting partially upright in bed with friends present in room drinking water via straw from hospital cup upon ST entry to the room. Pt was slightly slumped to left side in bed. Pt appears much more alert/oriented today and is requesting something that looks like real food as an upgrade from her current puree diet. Vocal quality remains weakened, but less so from yesterday. Treatment Liquids Trialed Thin (IDDSI 0) Solids Trialed Regular (IDDSI 7) Administration Type Cup Consecutive Sips,Straw Oral Strategies Upright at 90 degrees Pharyngeal Strategies Sitting Upright (90 deg) Treatment Activities Assisted in repositioning pt together with her friend who was present in room. Provided education re upright positioning for safe intake. Explained risk of aspiration when reclining during meals and provided education re sequalae of aspiration. PO trials thin water and bites magdalene cracker. Discussed upgrading diet. Diet change ordered to IDDSI 6 soft and bite size, nurse notified. Provided pt education regarding ill-fitting dentures . Ideally, pt should be using some denture glue in the meantime until she is able to get dentures to fit better. Explained that loose fitting dentures increases risk of aspiration while chewing due to increased difficulty coordinating chew/swallow. Pt expressed understanding and states she will think about using denture glue in the future. Attempted to find some denture glue in nursing supplies, but was unable to locate any to provide to the patient. The IDDSI Framework Protocol: IDDSI.1 Assessment Patient Response to Treatment Good Rehab Potential Good Assessment of Improvement Pt's alertness is increased from yesterday. Verbal responses are increasingly appropriate. She still had difficulty with bed mobility and repositioning, so will need ongoing assistance in positioning for feeding. Trials thin liquid via straw sip were characterized by oral phase and pharyngeal phase both appearing WFL. Trials magdalene cracker were characterized by mildly prolongued mastication and A-P transit, but pt independently used liquid wash to assist in bolus clearance. No overt s/ sx aspiration were observed, though silent aspiration cannot be ruled out without an instrumental assessment. Pt' s dentures did appear to come loose while chewing magdalene cracker, which does decrease safety. Discussed adding denture glue as outlined above . Based on improvement in overall condition/mentation and tolerance of trials magdalene cracker, recommending upgrade to soft and bite sized solids and continue with thin liquids at this time. Plan to assess pt tolerance with upgraded diet in AM. Recommendations Recommendations Upgrade Diet Order Liquids Order Thin (IDDSI 0) Diet Order Soft & Bite-sized (IDDSI 6) Medication Recommendations As Tolerated Aspiration Precautions Recommended Precautions Upright at 90 Degrees Treatment Plan Dysphagia Goals 1. Pt will tolerate current diet of thin liquids (IDDSI 0) and soft/bite sized solids ( IDDSI 6) without overt clinical s/sx aspiration/ dysphagia in order to meet nutrition/hydration needs. 2. Pt will independently recall upright positioning strategy at mealtime in order to decrease risk of aspiration .
[2023-07-18 17:49] LABS: Chloride, Urine 69 mmol/L (Not Estab.)
[2023-07-18] MEDS: QUETIAPINE 100 MG TABLET 300 MG PO (20:39)
[2023-07-18] MEDS: AMLODIPINE 5 MG TABLET 10 MG PO (20:39)
[2023-07-18] MEDS: ATORVASTATIN 20 MG TABLET PO (20:39)
[2023-07-19] VITALS (11 sets, daily range): BP systolic 120–140; BP diastolic 69–86; PULSE 82–129; RESP 17–25; TEMP 36.5–36.9; O2SAT 96–99
[2023-07-19 05:21] LABS: Add Manual Diff / Slide Review NO; Basophils Absolute Auto 100 /uL (0-100); Basophils Percent Auto 0.5 % (0-2); Eosinophils Absolute Auto 800 /uL (0-450); Eosinophils Percent Auto 4.8 % (2-4); Hematocrit 34.7 % (36-46); Hemoglobin 11.7 g/dL (12.0-16.0); Lymphocytes Absolute Auto 2700 /uL (1100-4500); Lymphocytes Percent Auto 16.2 % (25-40); Mean Corpuscular HGB Conc 33.8 % (30-36); Mean Corpuscular Hemoglobin 29.2 PG (26-34); Mean Corpuscular Volume 86.4 fL (80-100); Monocytes Absolute Auto 800 /uL (0-900); Monocytes Percent Auto 4.7 % (3-14); Neutrophils Absolute Auto 12100 /uL (1500-7000); Neutrophils Percent Auto 73.8 % (50-75); Platelet Count 351 X10^3/uL (150-400); Red Blood Cell Count 4.01 X10^6/uL (4.0-5.2); Red Cell Distribution Width 14.5 % (11.6-14.8); White Blood Cell Count 16.4 X10^3/uL (4.5-11.0)
[2023-07-19 05:50] LABS: BUN Creatinine Ratio 22.2 (6-22); Blood Urea Nitrogen 16 mg/dL (7-17); Carbon Dioxide 24 mmol/L (22-32); Chloride 109 mmol/L (98-107); Estimated Glomerular Filt Rate > 60 mL/min (>60); Glucose 94 mg/dL (80-110); HEMOLYSIS < 15 (0-50); Potassium 3.2 mmol/L (3.4-5.1); Sodium 140 mmol/L (137-145)
[2023-07-19] MEDS: LEVOTHYROXINE 75 MCG TABLET PO (06:18)
[2023-07-19] MEDS: LORazepam 1 MG TABLET PO ×2 (06:18→12:34)
[2023-07-19] MEDS: POTASSIUM CHLORIDE 20 MEQ TAB 40 MEQ PO ×2 (09:18→14:44)
[2023-07-19] MEDS: HEPARIN 5,000 UNIT/ML VIAL 5000 UNIT SUBCUT (09:18)
[2023-07-19] MEDS: CEFEPIME 2 GM in SODIUM CHLORIDE 0.9% 100 ML IV (09:19)
[2023-07-19 09:21] LABS: Vancomycin Trough 13.9 ug/mL (10-20)
[2023-07-19] MEDS: VANCOMYCIN 1,000 MG/200 ML PIGGYBACK 200 MG IV (09:35)
--- NOTE | 2023-07-19 12:05 | CM.DPC ---
DCP Cont. Reviewed EMR and team rounds for status updates. Pt has continued to improve back to her baseline. Plan is to d/c her later this afternoon, family will provide transportation. Will continue to monitor in case she does not end up discharging.
--- NOTE | 2023-07-19 12:37 | PT.IIE ---
Current Diagnoses Other acidosis (07/14/23) Bipolar disorder, current episode manic without psychotic features, unspecified (07/14/23) Encephalopathy, unspecified (07/14/23) Metabolic encephalopathy (07/14/23) Acute respiratory failure, unspecified whether with hypoxia or hypercapnia (07/14/23) Acute kidney failure, unspecified (07/14/23) Surgical History (Last Reviewed 07/15/23 @ 08:07 by Griffin Whiteside MD) Hx of cholecystectomy Medical History (Last Reviewed 07/15/23 @ 08:07 by Griffin Whiteside MD) Bipolar disorder Eczema Hypertension Hypothyroidism (acquired) Physical Therapy Inpatient Evaluation/Re-Eval M1 PT/OT-IP Prior Functional Status Start: 07/19/23 12:40 Freq: NEEDED Status: Active Protocol: Document 07/19/23 12:37 DLM (Rec: 07/19/23 12:56 DLM [id number]) Medical Review Prior Functional Status Medical History Reviewed Yes Diet/Fluid Consistency Regular Communication WFL, dentures Mobility and Gait Independent with 4WW Activities of Daily Living and IADL's Independent with basic ADL's and Spouse helps with advanced ADLs Prior Functional Level (Other details) open with home health services Social History Household Members spouse Living Arrangements House Number of Floors (Floors) One Floor Number of Stairs To Enter/Railing? 3 steps with one rail Home Environment Standard Height Toilet,Tub/ Shower Home Equipment Four Wheel Walker,Tub Transfer Bench,Hand Held Shower Employment Status Retired Additional Social History Comment was hospitalized 06/14/23- and 06/21/23-06/27/23 M2 PT-IP Current Condition Start: 07/19/23 12:40 Freq: NEEDED Status: Active Protocol: Document 07/19/23 12:37 DLM (Rec: 07/19/23 12:56 DLM [id number]) Physical Therapy Current Condition Current Condition Evaluation Date 07/19/23 Treatment Diagnosis AMS, respiratory distresss, decreased activity tolerance Onset Date 07/14/23 M3 PT-IP Subjective Start: 07/19/23 12:40 Freq: NEEDED Status: Active Protocol: Document 07/19/23 12:37 DLM (Rec: 07/19/23 12:56 DLM [id number]) Subjective Physical Therapy Visit Type Type Initial Evaluation Visit Start Time 12:00 Visit Stop Time 12:37 Number of FIRE PREVENTION CHIEF Visits 0 Physical Therapy Visit Comments Patient Comments She reports being tired and weak today. Patient Goals Discharge home M4 PT-IP Mobility and Gait Start: 07/19/23 12:40 Freq: NEEDED Status: Active Protocol: Document 07/19/23 12:37 DLM (Rec: 07/19/23 12:56 DL [id number]) PT-Bed Mobility Assessment Supine to Sit Supine to Sit Standby Assistance Scooting Scooting to Edge of Bed Independent PT-Transfer Assessment Sit to and From Stand Sit to and from Stand Standby Assistance Equipment Transfer Assistive Device Gait Belt,Front Wheeled Walker Transfers Transfer Destination Chair Transfer Technique Stand Step Pivot Transfer Ability Level of Assist Standby Assistance,Use of Upper Extremities Gait Assessment Gait Gait Assistance Required: Contact Guard Assist,Minimum Assistance Distance (Feet) 50 Assistive Devices Assistive Device Gait Belt,Front Wheeled Walker Gait Deviations General Gait Pattern Decreased Stride Length,Flexed Trunk Factors Limiting Gait Function Factors Limiting Gait Function Decreased Activity Tolerance, Decreased Strength,Poor Balance Comments Gait Comments Pt on telemetry and distances of gait limited by length of line today, pt did laps in her room. She describes feeling weak during gait. She needs assist to manage FWW around obstacles in room. PT-Balance Assessment Sitting Balance and Reactions Static Sitting Balance Ability Normal Dynamic Sitting Balance Ability Normal Standing Balance and Reactions Static Standing Balance Ability Good Dynamic Standing Balance Ability Good Device Used FWW M5 PT-IP Objective Assessments Start: 07/19/23 12:40 Freq: NEEDED Status: Active Protocol: Document 07/19/23 12:37 DLM (Rec: 07/19/23 12:56 [facility] [id number]) Orientation Orientation/Cognition Level of Alertness Alert Orientation Name,Birthday,Month,Year,Day of Week,Place,Situation Language Function Ability No Deficits Noted Safety Awareness Understands Safety Issues Memory Description No Deficits Noted Gross Range of Motion Upper Extremity ROM Assessment Within Functional Limits Lower Extremity ROM Assessment Within Functional Limits Strength Upper Extremity Strength Assessment Within Functional Limits Lower Extremity Strength Assessment Bilaterally Impaired Comments Strength Comments LE strength grossly 4/5 Coordination Assessment Gross Coordination Gross Coordination WNL Sensation Assessment Comments Sensation Comments no changes reported by pt at this time Muscle Tone Muscle Tone WNL Yes M6 PT-IP Treatment Start: 07/19/23 12:40 Freq: NEEDED Status: Active Protocol: Document 07/19/23 12:37 DLM (Rec: 07/19/23 12:56 DLM [id number]) Physical Therapy Treatment Education Education Provided Safety Other Treatments Other Treatment Performed pt up to recliner for lunch No family present this visit. M7 PT-IP Assessment and Plan Start: 07/19/23 12:40 Freq: NEEDED Status: Active Protocol: Document 07/19/23 12:37 DLM (Rec: 07/19/23 12:56 DLM [id number]) PT Summary Assessment and Plan Potential Rehabilitation Potential Good Status of Condition at Evaluation Evolving Summary Impairments Strength,Balance,Bed Mobility, Transfers,Gait,Activity Tolerance Assessment Summary Camilla is alert and resting in bed. She reports she slept well. She is requesting to get up and walk to improve her strength. She describes feeling weak from being in the hospital and being in bed. Pt needs stand by assist to minimal assist at this time for mobility and gait with the FWW. She needs extra assist to manage hospital lines. She needed intermittent assist to move FWW around obstacles in the room and unclear if it is due to decreased vision or being used to a 4WW at baseline. Anticipate she will be able to discharge home with her when she is medically stable. Will continue to progress her distances of gait and improve her functional strength while she is hospitalized. Recommend home health Physical Therapy to continue her functional recovery at home. Goals Bed Mobility Goal Independent Transfer Goal Independent,Front Wheeled Walker,Four Wheeled Walker Gait Goal Standby Assistance,Front Wheel Walker,Four Wheel Walker Gait Distance 200 feet Other Goals up/down 3 steps with rail and SBA Days to Meet Goals 4 Frequency of Treatment Frequency Of Treatment Twice a Day Treatment Plan Physical Therapy Treatment Plan Bed Mobility Training,Transfer Training,Gait Training, Therapeutic Exercise,Balance Retraining,Discharge Planning, Neuromuscular Re-ed Precautions Other Precautions contact precautions Recommendations To Nursing Amount of Assist Needed Standby Assistance Discharge Recommendations PT Discharge Recommendations Home with Assistance,Home Health Other Discharge Recommendations Spouse can assist her Transportation Needs at Discharge Private Vehicle
--- NOTE | 2023-07-19 13:48 | ST.IPDYTX ---
Visit Care Team Role Provider Type Dagmar AndrewamadeoREBECA menezes Primary Care Provider Non-Staff Specialty: Medical Address: [address] [facility], [place], [address] Email: Deepak Álvarez MD Other Providers Physician Specialty: Medical Address: Phone: Fax: Email: Vera Murrell MD Other Providers Physician Specialty: Medical Address: Phone: Fax: Email: Speedy Melara MD Other Providers Physician Specialty: Medical Address: [address] [place], [address] Phone: Fax: Email: Mary Schwartz MD Other Providers Physician Specialty: Internal Medicine Address: Phone: Fax: Email: Miguel Saunders MD Other Providers Physician Specialty: Medical Address: Phone: Fax: Email: Nicole Kimbrough MD Other Providers Physician Specialty: Anesthesiology Internal Medicine Address: [address] [place], [address] Fax: Email: [email or web address] MD Other Providers Physician Specialty: Internal Medicine Address: [address] [place], [address] Phone: Fax: Email: [email or web address] David Krueger MD Other Providers Physician Specialty: Internal Medicine Address: Phone: Fax: Email: Lawrence Tobar MD Other Providers Physician Specialty: Medical Address: Phone: Fax: Email: Shravan Clinton MD Other Providers Physician Specialty: Internal Medicine Address: [address] [place], [address] Phone: Fax: Email: Dewey Field MD Other Providers Physician Specialty: Medical Address: [address], [address] Phone: Fax: Email: Marie Adams MD Other Providers Physician Specialty: Medical Address: Phone: Fax: Email: Kaley Dasilva Other Providers Physician Specialty: Medical Address: Phone: Fax: Email: Tabby Farah MD Other Providers Physician Specialty: Internal Medicine Address: Phone: Fax: Email: Ciarra Velazquez MD Emergency Provider Physician Referring Provider Specialty: Emergency Medicine Address: [address], [place], [address] Email: [email or web address] Edvin Lr MD Admit Provider Physician Attending Provider Specialty: Internal Medicine Address: [address] [place] [address], [address] Fax: Email: [email or web address] DEMOLITION CRANE OPERATOR Dysphagia Treatment DEMOLITION CRANE OPERATOR Dysphagia Treatment Start: 07/18/23 15:06 Freq: Status: Active Protocol: Document 07/19/23 13:40 CG (Rec: 07/19/23 13:48 CG [id number]) Dysphagia Treatment Session Time Visit Start Time 12:35 Visit Stop Time 12:45 Total Visit Minutes 10 Visit Information Visit Number 3 Setting Assessment Location Acute Care Patient Information Subjective Observations Pt sitting up in hospital chair at bedside after having just worked with PT, with lunch tray present on table. Pt continuing to present with hoarse/weak voice, but stronger each day. Pt is alert, oriented, agreeable to ST presence. Treatment Liquids Trialed Thin (IDDSI 0) Solids Trialed Soft & Bite-sized (IDDSI 6) Administration Type Cup Consecutive Sips,Straw Oral Strategies Upright at 90 degrees Pharyngeal Strategies Sitting Upright (90 deg) Treatment Activities Assessed diet tolerance with recently upgraded diet. Provided pt education in safe swallowing strategies/ precautions to include: upright positioning, no talking while eating, use denture glue/continue pursuing re-fitting for dentures to decrease risk of aspirating solid food while chewing. The IDDSI Framework Protocol: IDDSI.1 Assessment Patient Response to Treatment Good Rehab Potential Good Assessment of Improvement Pt's alertness is maintained from yesterday. Pt stated that she was happy to have real food. Trials soft and bite sized solids (chicken cut into bite sized pieces, green beans, and rice) were characterized by prolongued mastication time and mildly impaired oral bolus preparation, which was exacerbated by pt's ill- fitting dentures. Pt was observed to frequently attempt to talk while chewing, but was able to decrease this behavior after DEMOLITION CRANE OPERATOR education and min verbal cues. Pt independently utilized liquid wash after bites of solid. No overt s/sx aspiration/ penetration were observed throughout trials IDDSI 6 or IDDSI 0 (however, silent aspiration cannot be ruled out without an instrumental assessment). Pt appears to be tolerating IDDSI 6 soft and bite sized solids well despite slowed mastication/slow oral phase. Recommend continue on this diet at this time. Recommendations Recommendations Continue Current Diet Liquids Order Thin (IDDSI 0) Diet Order Soft & Bite-sized (IDDSI 6) Medication Recommendations As Tolerated Aspiration Precautions Recommended Precautions Upright at 90 Degrees Additional Precautions Reduce distractions while eating, no talking Treatment Plan Placement Recommendation after Discharge Home Dysphagia Goals 1. Pt will tolerate current diet of thin liquids (IDDSI 0) and soft/bite sized solids ( IDDSI 6) without overt clinical s/sx aspiration/ dysphagia in order to meet nutrition/hydration needs. 2. Pt will independently recall upright positioning strategy at mealtime in order to decrease risk of aspiration .
--- NOTE | 2023-07-19 14:04 | PT-IP ANOTE ---
Pt just got back to bed and is asleep at this time. Per nursing she should be d/c today and has been ambulating with them and was seen by PT earlier this morning. Pt was left to rest. PT will check on pt tomorrow if still in hospital.
[2023-07-19] MEDS: LOPERAMIDE 2 MG CAPSULE PO (15:30)
--- NOTE | 2023-07-19 16:02 | PM.DS.1 ---
History of Present Illness History of Present Illness Chief complaint: manic Narrative: 73 y/o with PMH of Bipolar Disorder presented confused, agitated, disoriented and quickly intubated for airway protection. Per she was taking too much of her meds including baclofen and oxycodone for her foot pain. Initial workup shows leukocytosis, left shift, elevated LA, VELASQUEZ and no obvious source of infection, with clear CXR and UA. Covered with empiric Rocephin, given IVFs, BCs pending. Similar presentation few weeks ago. She was suspected on non-compliance with medications, apparently she was off Seroquel. Seen by psychiatry and discharged on previous regimen of prn Ativan and scheduled hs Seroquel. Supposed to follow with primary psychiatrist but I don't know if that ever happened. Discharge Providers Provider Date of admission: 07/14/23 04:56 Discharge Date: 07/19/23 Primary care physician: REBECA Garcia Consults: 07/14/23 07:30 Consult to Tele-graduate student instructor Routine Comment: Consulting Provider: Linda [employer]-intens[employer] Reason for consultation: Medical Lab Technician services 07/17/23 11:46 Consult to Speech Therapy Evaluate & Treat Comment: Physician Instructions: Evaluate and treat 07/18/23 14:54 Consult to Physical Therapy Evaluate & Treat Comment: Physician Instructions: Evaluate and Treat Discharge provider: Griffin Whiteside MD Summary Hospital Course Discharge Diagnosis: 1. Acute toxic encephalopathy in the setting of manic phase, Bipolar 1 Disorder, present on admission and resolved. -resumed baseline medications 07/16. 2. VELASQUEZ, present on admission and resolved. 3. Hyperchloremic acidosis, new and active. -stop saline. Start Bicarb infusion at 50/hr. Monitor Cl. 4. Bipolar 1, present on admission and active. -continue home medications. 5. Intubated for airway protection and extubated on July 16, improved. Hospital Course: The patient was admitted for confusion, agitation and disorientation and intubated for airway protection. Her indicates she was taking too much of baclofen and oxycodone for her back pain. She initially had a lactic acidosis, VELASQUEZ and leukocytosis. She would normal chest x-ray and urinalysis but was covered with empiric antibiotics for several days. Cultures remained negative and she was ultimately able to extubate on July 16. She did well and progressed in terms of her mental orientation and ability to move around over the next 2 days. On July 18 she was at or near her baseline her felt comfortable with her discharge home. There will be no change in medications. I shared a strong recommendation with she and her to have him administer her medications twice a day and use a locked box to contain the medications other times. Status at Discharge Cognitive/behavioral status at discharge: oriented Functional status at discharge: independent ambulation Overall status at discharge: patient is back to baseline Time Spent with Patient Time spent: Greater than 30 minutes Exam Vital Signs (past 8 hours): - 07/19/23 08:13 07/19/23 08:15 07/19/23 08:16 Pulse Rate 129 H Respiratory Rate Blood Pressure 137/74 Pulse Oximetry Oxygen Delivery Method Room Air 07/19/23 08:16 Pulse Rate 115 H Respiratory Rate 17 Blood Pressure Pulse Oximetry 97 Oxygen Delivery Method Fraction of Inspired Oxygen 0.30 Oxygen Delivery Method Room Air Oxygen Flow Rate 0 Narrative Exam Narrative: NAD, alert and oriented. Fluent speech. Lungs are clear, normal rate and effort. Heart is regular, no murmur gallop or rub. Abdomen is soft, non distended. Extremities are free of edema. Objective Imaging Multiple studies:: My impression: Head CT: Normal. Chest x-ray: Normal. Toe x-ray: stable previous fracture. Initial chest x-ray at admission normal. Labs 07/19/23 04:55 07/19/23 04:55 Labs: Laboratory Results - last 24 hr 07/17/23 07/19/23 07/19/23 11:04 04:55 08:38 WBC 16.4 H RBC 4.01 Hgb 11.7 L Hct 34.7 L MCV 86.4 MCH 29.2 MCHC 33.8 RDW 14.5 Plt Count 351 Neut % (Auto) 73.8 Lymph % (Auto) 16.2 L [place] % (Auto) 4.7 Eos % (Auto) 4.8 H Baso % (Auto) 0.5 Neut # (Auto) 62082 H Lymph # (Auto) 2700 [place] # (Auto) 800 Eos # (Auto) 800 H Baso # (Auto) 100 Sodium 140 Potassium 3.2 L Chloride 109 H Carbon Dioxide 24 BUN 16 Creatinine 0.72 Estimated GFR > 60 BUN/Creatinine Ratio 22.2 H Glucose 94 Calcium 10.0 Urine Chloride 69 Vancomycin Trough 13.9 PFSH Medical History Eczema Hypothyroidism (acquired) Bipolar disorder Hypertension Surgical History Hx of cholecystectomy Family History Mother Alcohol abuse Father CVA (cerebral vascular accident) Social History household members: spouse Smoking Status: Never smoker alcohol intake: former Discharge Assessment & Plan Assessment and Plan Assessment: 1. Acute toxic encephalopathy in the setting of manic phase, Bipolar 1 Disorder, present on admission and resolved. -resumed baseline medications 07/16. 2. VELASQUEZ, present on admission and resolved. 3. Hyperchloremic acidosis, new and active. -stop saline. Start Bicarb infusion at 50/hr. Monitor Cl. 4. Bipolar 1, present on admission and active. -continue home medications. 5. Intubated for airway protection and extubated on July 16, improved. Plan of Treatment: Discharge home with no change to medications. Discharge Plan Discharge Plan Patient Disposition: Home Provider Discharge Comment: Your stable for discharge, appeared to be back at baseline. We will resume all medications without change. Recommend a lockbox with the assistance from her on giving you medications twice a day. Discharge orders & Medications Prescriptions: Continued levothyroxine [Synthroid] 75 mcg Tablet 75 mcg PO DAILY@0600 Qty: 30 0RF Calcium 500 500 MG 1 tab PO BEDTIME baclofen 10 mg tablet 10 mg PO 3XD PRN (Reason: muscle spasm) amlodipine 10 mg Tablet 10 mg PO BEDTIME atorvastatin 20 mg tablet 20 mg PO BEDTIME betamethasone dipropionate 0.05 % cream 0.05 applic topical BID Patient Comments: Apply topically 2 (two) times a day oxycodone 5 mg Tablet 5 mg PO Q6HR quetiapine 300 mg Tablet 300 mg PO BEDTIME Qty: 30 0RF Follow up/Referrals: Dagmar Perdue ARNP [Primary Care Provider] - Diet/Activity/Treatments Diet: Diet as Tolerated Skin/Wound/Dressing Care Report to your healthcare provider any signs of infection, such as:: chills, fever and increased pain Visit Report/Discharge Packet Instructions: DI for Prescription Opioid Use Stand Alone Forms: Patient Portal/API Discharge Data Primary Care Provider: Dagmar Perdue VTE Deep Vein Thrombosis/Pulmonary Embolism Present on Admission: No
--- NOTE | 2023-07-19 16:58 | PC.NURSE ---
Day shift: Paperwork signed and all questions answered. Spouse in room for teachings as well. Pt has all personal belongings. No new MD scripts. Left room via at approx 1700. Spouse is driving her home. They live local in [place]. ALAN Chapin took patient to car.
== END 2023-07-19 16:59 | disposition home or self-care (01) | DRG 885 ==
LOC: ED 04:57 → AC 04:58 → ICU 07:30
PROVIDERS: Internal Medicine Critical Care Medicine; Student in an Organized Health Care Education/Training Program; Admitting Provider Internal Medicine; Emergency Provider Emergency Medicine; PCP Nurse Practitioner Family; Referring Provider Emergency Medicine; Visit Provider Internal Medicine
DX: F31.10 Bipolar disorder, current episode manic without psychotic features, unspecified (principal); G92.9 Unspecified toxic encephalopathy; J96.00 Acute respiratory failure, unspecified whether with hypoxia or hypercapnia; N17.9 Acute kidney failure, unspecified; E87.29 Other acidosis; E03.9 Hypothyroidism, unspecified; I10 Essential (primary) hypertension
CPT/HCPCS: 36415; 36592; 36600; 51701; 70450; 71045; 73660; 80048; 80053; 80202; 80305; 81001; 82436; 82550; 82805; 82962; 83605; 83735; 84100; 84145; 84300; 84484; 85025; 85610; 87040; 87797; 92526; 92610; 93005; 93010; 94002; 94003; 94799; 96365; 96375; 97162; 99233; 99285; 99291; C9113; J0692; J0696; J1644; J2060; J2270; J2704; J3010